=== PATIENT | male | born 1970 | race Caucasian/White ===

== ENCOUNTER 2016-07-22 16:17 | Inpatient (IN) | payer MEDICAID, MEDICARE, OTHER ==
--- NOTE | 2016-07-22 16:57 | ED ---
General Adult HPI - General Source: patient, RN notes reviewed Mode of arrival: ambulatory Limitations: no limitations <Collin Moseley - Last Filed: 07/24/16 07:52> <Gianni Gomez - Last Filed: 08/03/16 07:24> - General Chief complaint: Psychiatric Symptoms Stated complaint: Mental Health, SOB Time Seen by Provider: 07/22/16 16:20 - History of Present Illness Initial comments: This is a 45-year-old male who presents emergency department stating he wants to kill himself. patient states he has attempted in the past by taking pills or cutting his wrists. Patient states today he smokes $150 worth of crack cocaine in the hopes that he would . Patient denies any physical problems today. He denies headache denies numbness weakness. Patient denies any chest pain palpitations difficulty breathing or shortness of breath per patient denies abdominal pain patient denies nausea vomiting diarrhea. Patient denies any alcohol use. Patient states he has used crack multiple times in the past last time prior to today was 2 days ago and he only smoked $20 worth. (Collin Moseley) - Related Data Home Medications Medication Instructions Recorded Confirmed ALPRAZolam [Xanax] 2 mg PO BID 07/23/16 07/23/16 ARIPiprazole [Abilify] 2 mg PO DAILY 07/23/16 07/23/16 Allopurinol [Zyloprim] 300 mg PO DAILY 07/23/16 07/23/16 Baclofen [Lioresal] 10 mg PO TID 07/23/16 07/23/16 Canagliflozin [Invokana] 300 mg PO DAILY 07/23/16 07/23/16 Citalopram Hydrobromide [CeleXA] 40 mg PO DAILY 07/23/16 07/23/16 Furosemide [Lasix] 40 mg PO DAILY 07/23/16 07/23/16 Gabapentin [Neurontin] 600 mg PO TID 07/23/16 07/23/16 Glimepiride [Amaryl] 2 mg PO BID 07/23/16 07/23/16 Hydrocodone/Acetaminophen [[place] 1 tab PO BID PRN 07/23/16 07/23/16 10-325 Tablet] Lisinopril-Hctz 20-25 mg 1 tab PO DAILY 07/23/16 07/23/16 [Zestoretic 20-25] Phentermine HCl [Adipex-P] 37.5 mg PO QAM 07/23/16 07/23/16 buPROPion HCL [Wellbutrin XL] 300 mg PO DAILY 07/23/16 07/23/16 metFORMIN HCL [Metformin HCl] 500 mg PO BID 07/23/16 07/23/16 Allergies Allergy/AdvReac Type Severity Reaction Status Date / Time ibuprofen [From Motrin] Allergy Rash/Hives Verified 07/23/16 10:33 Review of Systems ROS Other: All systems not noted in ROS Statement are negative. <Collin Moseley - Last Filed: 07/24/16 07:52> ROS Other: All systems not noted in ROS Statement are negative. <Gianni Gomez - Last Filed: 08/03/16 07:24> ROS Statement: Those systems with pertinent positive or pertinent negative responses have been documented in the HPI. Past Medical History Past Medical History: Diabetes Mellitus, Hypertension Additional Past Medical History / Comment(s): neuropathy, gout, depression. History of Any Multi-Drug Resistant Organisms: None Reported Additional Past Surgical History / Comment(s): eyes, left foot surgery. Past Psychological History: Anxiety, Bipolar, Depression Smoking Status: Never smoker Past Alcohol Use History: None Reported Past Drug Use History: Cocaine - Past Family History Mother Family Medical History: Cancer, Diabetes Mellitus Father Family Medical History: Myocardial Infarction (MD) Additional Family Medical History / Comment(s): stroke <Collin Moseley - Last Filed: 07/24/16 07:52> General Exam Limitations: no limitations <Collin Moseley - Last Filed: 07/24/16 07:52> <Gianni Gomez - Last Filed: 08/03/16 07:24> - General Exam Comments Initial Comments: GENERAL: Patient is well-developed and well-nourished. Patient is nontoxic and well- hydrated and is in no acute distress. ENT: Neck is soft and supple. No significant lymphadenopathy is noted. Oropharynx is clear. Moist mucous membranes. Neck has full range of motion without eliciting any pain. EYES: The sclera were anicteric and conjunctiva were pink and moist. Extraocular movements were intact and pupils were equal round and reactive to light. Eyelids were unremarkable. PULMONARY: Unlabored respirations. Good breath sounds bilaterally. No audible rales rhonchi or wheezing was noted. CARDIOVASCULAR: There is a regular rate and rhythm without any murmurs gallops or rubs. ABDOMEN: Soft and nontender with normal bowel sounds. No palpable organomegaly was noted. There is no palpable pulsatile mass. SKIN: Skin is clear with no lesions or rashes and otherwise unremarkable. NEUROLOGIC: Patient is alert and oriented x3. Cranial nerves II through XII are grossly intact. Motor and sensory are also intact. Normal speech, volume and content. Symmetrical smile. MUSCULOSKELETAL: Normal extremities with adequate strength and full range of motion. No lower extremity swelling or edema. No calf tenderness. LYMPHATICS: No significant lymphadenopathy is noted PSYCHIATRIC: patient has a very flat affect. Patient seems very depressed speaks of wanting to kill himself. (Collin Moseley) Medical Decision Making - Lab Data Result diagrams: 07/22/16 17:14 07/22/16 17:14 <Collin Moseley - Last Filed: 07/24/16 07:52> - Lab Data Result diagrams: 07/22/16 17:14 07/22/16 17:14 <Gianni Gomez - Last Filed: 08/03/16 07:24> - Medical Decision Making EKG shows normal sinus rhythm at 93 bpm KS interval 168 QRSs 86 QT interval 356 QTC is 442. Patient's EKG shows no ST segment elevation or depression or T- wave abdomen is noted. Dr. Carter will be taking over the care of this patient at 7 PM (Collin Moseley) - Lab Data Lab Results 07/22/16 07/22/16 07/22/16 Range/Units 17:14 17:14 17:14 WBC 13.9 H (3.8-10.6) k/uL RBC 5.90 (4.30-5.90) m/uL Hgb 17.3 (13.0-17.5) gm/dL Hct 53.2 H (39.0-53.0) % MCV 90.2 (80.0-100.0) fL MCH 29.3 (25.0-35.0) pg MCHC 32.4 (31.0-37.0) g/dL RDW 13.9 (11.5-15.5) % Plt Count 225 (150-450) k/uL Neutrophils % 71 % Lymphocytes % 20 % Monocytes % 6 % Eosinophils % 1 % Basophils % 1 % Neutrophils # 9.8 H (1.3-7.7) k/uL Lymphocytes # 2.8 (1.0-4.8) k/uL Monocytes # 0.8 (0-1.0) k/uL Eosinophils # 0.2 (0-0.7) k/uL Basophils # 0.1 (0-0.2) k/uL PT (9.0-12.0) sec INR (<1.1) APTT (22.0-30.0) sec Sodium 139 (137-145) mmol/L Potassium 4.0 (3.5-5.1) mmol/L Chloride 107 (98-107) mmol/L Carbon Dioxide 21 L (22-30) mmol/L Anion Gap 11 mmol/L BUN 13 (9-20) mg/dL Creatinine 0.66 (0.66-1.25) mg/dL Est GFR (MDRD) Af Amer >60 (>60 ml/min/1.73 sqM) Est GFR (MDRD) Non-Af >60 (>60 ml/min/1.73 sqM) Glucose 270 H (74-99) mg/dL Estimated Ave Glu mg/dL mg/dL Hemoglobin A1c (4.2-6.1) % Calcium 9.1 (8.4-10.2) mg/dL Magnesium 1.6 (1.6-2.3) mg/dL Total Bilirubin 0.9 (0.2-1.3) mg/dL AST 49 (17-59) U/L ALT 46 (21-72) U/L Alkaline Phosphatase 69 (38-126) U/L Total Creatine Kinase 93 (55-170) U/L CK-MB (CK-2) 1.7 (0.0-2.4) ng/mL CK-MB (CK-2) Rel Index 1.8 Troponin I <0.012 (0.000-0.034) ng/mL Total Protein 6.7 (6.3-8.2) g/dL Albumin 3.5 (3.5-5.0) g/dL TSH (0.465-4.680) mIU/L 07/22/16 07/22/16 07/22/16 Range/Units 17:14 17:14 17:14 WBC (3.8-10.6) k/uL RBC (4.30-5.90) m/uL Hgb (13.0-17.5) gm/dL Hct (39.0-53.0) % MCV (80.0-100.0) fL MCH (25.0-35.0) pg MCHC (31.0-37.0) g/dL RDW (11.5-15.5) % Plt Count (150-450) k/uL Neutrophils % % Lymphocytes % % Monocytes % % Eosinophils % % Basophils % % Neutrophils # (1.3-7.7) k/uL Lymphocytes # (1.0-4.8) k/uL Monocytes # (0-1.0) k/uL Eosinophils # (0-0.7) k/uL Basophils # (0-0.2) k/uL PT 11.7 (9.0-12.0) sec INR 1.2 (<1.1) APTT 23.7 (22.0-30.0) sec Sodium (137-145) mmol/L Potassium (3.5-5.1) mmol/L Chloride (98-107) mmol/L Carbon Dioxide (22-30) mmol/L Anion Gap mmol/L BUN (9-20) mg/dL Creatinine (0.66-1.25) mg/dL Est GFR (MDRD) Af Amer (>60 ml/min/1.73 sqM) Est GFR (MDRD) Non-Af (>60 ml/min/1.73 sqM) Glucose (74-99) mg/dL Estimated Ave Glu mg/dL 226 mg/dL Hemoglobin A1c 9.5 H (4.2-6.1) % Calcium (8.4-10.2) mg/dL Magnesium (1.6-2.3) mg/dL Total Bilirubin (0.2-1.3) mg/dL AST (17-59) U/L ALT (21-72) U/L Alkaline Phosphatase (38-126) U/L Total Creatine Kinase (55-170) U/L CK-MB (CK-2) (0.0-2.4) ng/mL CK-MB (CK-2) Rel Index Troponin I (0.000-0.034) ng/mL Total Protein (6.3-8.2) g/dL Albumin (3.5-5.0) g/dL TSH 0.959 (0.465-4.680) mIU/L Disposition <Collin Moseley - Last Filed: 07/24/16 07:52> <Gianni Gomez - Last Filed: 08/03/16 07:24> Clinical Impression: Cocaine abuse, Mood disorder Disposition: ADMITTED IP TO THIS HOSP Condition: Fair
[2016-07-22 17:33] LABS: Basophils # (A) 0.1 k/uL (0-0.2); Basophils % (A) 1 %; CH 29.7; CHCM 33.1; Eosinophils # (A) 0.2 k/uL (0-0.7); Eosinophils % (A) 1 %; HCT 53.2 % (39.0-53.0); HDW 2.42; HGB 17.3 gm/dL (13.0-17.5); Luc % (Auto) 1; Lymphocytes # (A) 2.8 k/uL (1.0-4.8); Lymphocytes % (A) 20 %; MCH 29.3 pg (25.0-35.0); MCHC 32.4 g/dL (31.0-37.0); MCV 90.2 fL (80.0-100.0); Mean Platelet Volume 8.3; Monocytes # (A) 0.8 k/uL (0-1.0); Monocytes % (A) 6 %; Neutrophils # (A) 9.8 k/uL (1.3-7.7); Neutrophils % (A) 71 %; RDW 13.9 % (11.5-15.5); WBC 13.9 k/uL (3.8-10.6); WBC (Perox) 13.32
[2016-07-22 17:40] LABS: ALT 46 U/L (21-72); AST 49 U/L (17-59); Alkaline Phosphatase 69 U/L (38-126); Anion Gap 11 mmol/L; Blood Urea Nitrogen 13 mg/dL (9-20); Calcium 9.1 mg/dL (8.4-10.2); Carbon Dioxide 21 mmol/L (22-30); Chloride 107 mmol/L (98-107); Glucose 270 mg/dL (74-99); Magnesium 1.6 mg/dL (1.6-2.3); Non-African American GFR(MDRD) >60 (>60 ml/min/1.73 sqM); Sodium 139 mmol/L (137-145); Total Bilirubin 0.9 mg/dL (0.2-1.3); Total Protein 6.7 g/dL (6.3-8.2)
[2016-07-22 17:44] LABS: INR 1.2 (<1.1); Partial Thromboplastin Time 23.7 sec (22.0-30.0); Prothrombin Time 11.7 sec (9.0-12.0)
[2016-07-22 17:55] LABS: Creatine Kinase 93 U/L (55-170)
--- NOTE | 2016-07-22 17:58 | XR ---
EXAMINATION TYPE: XR chest 2V DATE OF EXAM: 07/22/2016 COMPARISON: 11/25/2009 INDICATION: Chest pain, short of breath TECHNIQUE: Frontal and lateral views of the chest are obtained. FINDINGS: The heart size is normal. The pulmonary vasculature is normal. The lungs are clear. IMPRESSION: 1. No acute pulmonary process.
[2016-07-22 18:07] LABS: Creatine Kinase MB 1.7 ng/mL (0.0-2.4); Troponin I <0.012 ng/mL (0.000-0.034)
[2016-07-22] MEDS ORDERED: MAG HYDROX/AL HYDROX/SIMETH 30 ML CUP PO PRN (19:43)
[2016-07-22] MEDS ORDERED: ACETAMINOPHEN TAB 325 MG TAB PO PRN (19:53)
[2016-07-22 20:53] LABS: Glucose,Whole Blood 186 mg/dL (75-99)
[2016-07-22] MEDS: hydrOXYzine PAMOATE 25 MG CAP PO PRN (20:53)
[2016-07-22] MEDS: INSULIN LISPRO (humaLOG) 300 UNIT/3 ML VIAL SQ SCH (21:30)
[2016-07-22 21:58] VITALS: BMI 51.2
[2016-07-23 07:05] LABS: Glucose,Whole Blood 165 mg/dL (75-99)
[2016-07-23] MEDS ORDERED: INSULIN LISPRO (humaLOG) 300 UNIT/3 ML VIAL SQ SCH (07:30)
[2016-07-23] MEDS: INSULIN LISPRO (humaLOG) 300 UNIT/3 ML VIAL SQ SCH ×4 (08:08→20:28)
--- NOTE | 2016-07-23 11:23 | P.HP ---
Psychiatric H&P - . H&P Date: 07/23/16 History & Physical: DATE OF SERVICE: 07/23/2016 IDENTIFYING DATA: This patient is a 45-year-old single male who was admitted to the mental health unit through emergency room. HISTORY OF PRESENT ILLNESS:Patient came to ER with friend Leonie whom he lives with. Patient stated he was feeling suicidal today and in an attempt to overdose he smoked crack. He stated he was hoping his heart with explode. Patient stated he has been depressed and feeling sucidal for the last month. He stated when he is in major depression he craves Crack, however admits to only using two times prior. [employer] asked patient what was his trigger for his depression and patient responded vaguely with comments such as I have lost everything, life is spiraling down, I am a waste of air. Patient repeated throughout the assessment "I want to ." Leonie stated that Maxwell has a long history of drug abuse. Stated he has been addicted to Crack for 20 years and has been snorting other meds such a neurtonin. Patient denies this. On examination today he reports"I was suicidal and i suffer from depression". States he was taking more neurontin for pain after surgery since sep. but denies snorting. Stopped taking all medications 4 months ago including insulin to kill self. Continues to feel hopeless, useless, worthless, no reason to live. Says he sleeps during the day because of the depression. Says he has taken welbutrin 300mg, thinks he has tried abilify, seroquel causes restless leg. +Suicidal ideation, no reason to live, hopeless, worthless, help rejecting style. PAST PSYCHIATRIC HISTORY: Patient reports depression all his life. REports he has been admitted to psychiatric units, several times here, [facility]. Reports suicide attempts has OD-several times, gastric lavage, once in ICU at [facility], cut self, taking cocaine to kill self. PAST MEDICAL HISTORY: DM type 2, neuropathy, . ALLERGIES: No known drug allergies. 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 Denies using cocain or crack other than the last 2 weeks in order to kill self. UDS + for cocaine, cannabis opiates. FAMILY PSYCHIATRIC HISTORY: mother had depression. FAMILY CHEMICAL DEPENDENCY HISTORY:grandfather etohic, father etohic.. LEGAL HISTORY: Denies current problems. Embezzlement $14,000, probation and restitution, has felony status. SOCIAL HISTORY: Grew up in [place], [place], childhood was horrible, parents fought , divorce. 1 sister older, not close. 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 Work history 27 years, cannot work due inability to pass physical, weighs 347, on SSDI $1151. Lives in house with roommate Maia. - never, no children.. MENTAL STATUS EXAM: Patient alert and oriented 3, no eye contact, poorly groomed in street clothing. Speech low volume, slow rate and reduce production. + Psychomotor retardation Coherent, logical and goal directed thought process. No JANA, no FOI. No TB/TW/ TI Denied auditory and visual hallucinations. Denied paranoid ideation, delusions or IOR. Memory impaired Cognition below average Recalled 1/0, 0/5; Serial 7's unable to complete Mood dysphoric, anxious, affect constricted, congruent with mood. ++suicidal ideation, denies homicidal ideation. Insight none; Judgment impaired . STRENGTHS: Has housing, has income. WEAKNESSES: Poor self-esteem, addiction. IMPRESSIONS: 45-year-old male admitted through the emergency room after report of making a suicide attempt of using $250 cocaine to try to explode his heart. Reports chronic depression lifelong, having stopped all medications 4 months ago with report of suicide intent. Unclear about his cocaine use, Leonie his roommate, reports he uses it over the past 20 years. Patient reports horrible childhood but does not endorse abuse. Was in special education considered emotionally impaired. Patient with psychomotor retardation, reduce speech rate and production, dysphoria, hopelessness helplessness worthlessness. Sleep-wake cycle disruption. Suicidal ideation with a plan, intent Attempted suicide Suicidal ideation Depression, unspecified Rule out cocaine-induced depression Cocaine use,? Mild versus severe PLAN: Continue psychiatric inpatient admission for safety, treatment of depression. Patient was unable to report past medication trials. Will start with bupropion 75 mg, increase up to 450 mg. Start lithium 150 at bedtime and titrate up, for purported protection from suicide. Patient to remain up during the day no sleeping. Participate in milieu therapy.. Allergies Allergy/AdvReac Type Severity Reaction Status Date / Time ibuprofen From Motrin Allergy Rash/Hives Verified 07/23/16 10:33 Vital Signs Temp 97.6 F 07/23/16 06:57 Pulse 71 07/23/16 06:57 Resp 16 07/23/16 06:57 BP 116/73 07/23/16 06:57 Pulse Ox 94 L 07/22/16 19:58 Intake & Output 07/22/16 07/23/16 07/23/16 18:59 06:59 18:59 Weight 208.652 kg 157.26 kg Laboratory Last Values WBC 13.9 k/uL (3.8-10.6) H 07/22/16 17:14 RBC 5.90 m/uL (4.30-5.90) 07/22/16 17:14 Hgb 17.3 gm/dL (13.0-17.5) 07/22/16 17:14 Hct 53.2 % (39.0-53.0) H 07/22/16 17:14 MCV 90.2 fL (80.0-100.0) 07/22/16 17:14 MCH 29.3 pg (25.0-35.0) 07/22/16 17:14 MCHC 32.4 g/dL (31.0-37.0) 07/22/16 17:14 RDW 13.9 % (11.5-15.5) 07/22/16 17:14 Plt Count 225 k/uL (150-450) 07/22/16 17:14 Neutrophils % 71 % 07/22/16 17:14 Lymphocytes % 20 % 07/22/16 17:14 Monocytes % 6 % 07/22/16 17:14 Eosinophils % 1 % 07/22/16 17:14 Basophils % 1 % 07/22/16 17:14 Neutrophils # 9.8 k/uL (1.3-7.7) H 07/22/16 17:14 Lymphocytes # 2.8 k/uL (1.0-4.8) 07/22/16 17:14 Monocytes # 0.8 k/uL (0-1.0) 07/22/16 17:14 Eosinophils # 0.2 k/uL (0-0.7) 07/22/16 17:14 Basophils # 0.1 k/uL (0-0.2) 07/22/16 17:14 PT 11.7 sec (9.0-12.0) 07/22/16 17:14 INR 1.2 (<1.1) 07/22/16 17:14 APTT 23.7 sec (22.0-30.0) 07/22/16 17:14 Sodium 139 mmol/L (137-145) 07/22/16 17:14 Potassium 4.0 mmol/L (3.5-5.1) 07/22/16 17:14 Chloride 107 mmol/L (98-107) 07/22/16 17:14 Carbon Dioxide 21 mmol/L (22-30) L 07/22/16 17:14 Anion Gap 11 mmol/L 07/22/16 17:14 BUN 13 mg/dL (9-20) 07/22/16 17:14 Creatinine 0.66 mg/dL (0.66-1.25) 07/22/16 17:14 Est GFR (MDRD) Af Amer >60 (>60 ml/min/1.73 sqM) 07/22/16 17:14 Est GFR (MDRD) Non-Af >60 (>60 ml/min/1.73 sqM) 07/22/16 17:14 Glucose 270 mg/dL (74-99) H 07/22/16 17:14 POC Glucose (mg/dL) 165 mg/dL (75-99) H 07/23/16 06:56 POC Glu Account Leader ID Arianna Ramirez 07/23/16 06:56 Calcium 9.1 mg/dL (8.4-10.2) 07/22/16 17:14 Magnesium 1.6 mg/dL (1.6-2.3) 07/22/16 17:14 Total Bilirubin 0.9 mg/dL (0.2-1.3) 07/22/16 17:14 AST 49 U/L (17-59) 07/22/16 17:14 ALT 46 U/L (21-72) 07/22/16 17:14 Alkaline Phosphatase 69 U/L (38-126) 07/22/16 17:14 Total Creatine Kinase 93 U/L (55-170) 07/22/16 17:14 CK-MB (CK-2) 1.7 ng/mL (0.0-2.4) 07/22/16 17:14 CK-MB (CK-2) Rel Index 1.8 07/22/16 17:14 Troponin I <0.012 ng/mL (0.000-0.034) 07/22/16 17:14 Total Protein 6.7 g/dL (6.3-8.2) 07/22/16 17:14 Albumin 3.5 g/dL (3.5-5.0) 07/22/16 17:14 TSH 0.959 mIU/L (0.465-4.680) 07/22/16 17:14 Urine Opiates Screen Detected (NotDetected) H 07/22/16 22:33 Ur Oxycodone Screen Not Detected (NotDetected) 07/22/16 22:33 Urine Methadone Screen Not Detected (NotDetected) 07/22/16 22:33 Ur Propoxyphene Screen Not Detected (NotDetected) 07/22/16 22:33 Ur Barbiturates Screen Not Detected (NotDetected) 07/22/16 22:33 U Tricyclic Antidepress Not Detected (NotDetected) 07/22/16 22:33 Ur Phencyclidine Scrn Not Detected (NotDetected) 07/22/16 22:33 Ur Amphetamines Screen Not Detected (NotDetected) 07/22/16 22:33 U Methamphetamines Scrn Not Detected (NotDetected) 07/22/16 22:33 U Benzodiazepines Scrn Not Detected (NotDetected) 07/22/16 22:33 Urine Cocaine Screen Detected (NotDetected) H 07/22/16 22:33 U Marijuana (THC) Screen Detected (NotDetected) H 07/22/16 22:33 07/23/16 10:49
[2016-07-23] MEDS: LITHIUM CARBONATE 150 MG CAP PO SCH ×2 (11:31→20:59)
[2016-07-23] MEDS: buPROPion 75 MG TAB PO SCH ×2 (11:33→20:59)
[2016-07-23 12:14] LABS: Glucose,Whole Blood 229 mg/dL (75-99)
[2016-07-23 12:26] LABS: Hemoglobin A1C 9.5 % (4.2-6.1)
[2016-07-23] MEDS ORDERED: GLIMEPIRIDE 2 MG TAB PO SCH (17:30)
[2016-07-23 17:43] LABS: Glucose,Whole Blood 137 mg/dL (75-99)
[2016-07-23] MEDS: hydrOXYzine PAMOATE 25 MG CAP PO PRN (20:26)
[2016-07-23 20:30] LABS: Glucose,Whole Blood 165 mg/dL (75-99)
[2016-07-23] MEDS: BACLOFEN 10 MG TAB PO SCH (20:59)
[2016-07-23] MEDS: metFORMIN 500 MG TAB PO SCH (20:59)
[2016-07-23] MEDS: GABAPENTIN 300 MG CAP PO SCH (21:00)
--- NOTE | 2016-07-23 21:11 | CONS ---
DATE OF CONSULTATION: REASON FOR CONSULTATION: Leukocytosis, recommendations regarding antihypertensive and diabetic medications. Patient is a 45-year-old was admitted to a psychiatric facility, after suicidal ideation. Patient tried to smoke 150 dollars' worth of crack cocaine so that he can . As $20 worth of cocaine did not kill him a couple days ago and patient denied any fever, chills. Patient denied any abdominal pain, nausea, vomiting. Patient does have leukocytosis. Patient denied any ( ), dysuria. Patient has not been taking any of her medication. Patient is diabetic and patient is hypertensive. Has not been taking any medication as he is giving up he says. REVIEW OF SYSTEMS: CONSTITUTIONAL: No fever, no malaise, no fatigue. HEENT: No recent visual problems or hearing problems. Denied any sore throat. CARDIOVASCULAR: No chest pain, orthopnea, PND, no palpitations, no syncope. PULMONARY: No shortness of breath, no cough, no hemoptysis. GASTROINTESTINAL: No diarrhea, no nausea, no vomiting, no abdominal pain. Normoactive bowel sounds. NEUROLOGICAL: No headaches, no weakness, no numbness. HEMATOLOGICAL: Denies any bleeding or petechiae. GENITOURINARY: Denies any burning micturition, frequency, or urgency. MUSCULOSKELETAL/RHEUMATOLOGICAL: Denies any joint pain, swelling, or any muscle pain. ENDOCRINE: Denies any polyuria or polydipsia. PSYCHIATRY: As described in history of present illness. The rest of the 14 point review of systems is negative. Home medications include: 1. Allopurinol. 2. Baclofen. 3. Duloxetine. 4. Famotidine. 5. Gabapentin. 6. Lisinopril. 7. Hydrochlorothiazide. 8. Latuda. 9. Clonazepam. 10. Glyburide. The patient has not been taking any of his medications for the last couple of months. ALLERGIES: IBUPROFEN. PAST MEDICAL HISTORY: Diabetes mellitus, hyperlipidemia, hypertension, moderate obesity, peripheral neuropathy and diabetic neuropathy, diabetic nephropathy and bipolar depression. SOCIAL HISTORY: Denied any smoking, alcohol abuse, urine drug screen is positive for cocaine, marijuana, opiates. Denied any alcohol abuse. FAMILY HISTORY: Significant for psychiatric disorder, diabetes mellitus and mother had cancer and diabetes mellitus and father had myocardial infarction, stroke. PHYSICAL EXAMINATION: Temperature 97.6, pulse of 72, respiratory rate of 16, blood pressure is 157/ 74, saturating at 94% on room air. GENERAL: Morbidly obese, alert and oriented x3. HEENT: Pupils are round and equally reacting to light. EOMI. No scleral icterus. No conjunctival pallor. Normocephalic, atraumatic. No pharyngeal erythema. No thyromegaly. CARDIOVASCULAR: S1 and S2 present. No murmurs, rubs, or gallops. PULMONARY: Chest is clear to auscultation, no wheezing or crackles. ABDOMEN: Soft, nontender, nondistended, normoactive bowel sounds. No palpable organomegaly. MUSCULOSKELETAL: No joint swelling or deformity. EXTREMITIES: No cyanosis, clubbing, or pedal edema. NEUROLOGICAL: Gross neurological examination did not reveal any focal deficits. SKIN: No rashes. LABORATORY DATA: CBC, CMP are abnormal for elevated WBC count of 13,900. Blood glucose elevated as well, hemoglobin AlC of 9.5. ASSESSMENT AND PLAN: 1. Leukocytosis without any signs or symptoms of infection. Chest x-ray did not show any pneumonic process. I do not believe patient will need any antibiotics. This is probably reactive response to his stress psychosocial stresses, psychological stress. 2. Diabetes mellitus will resume on his home regimen. I recommend to check t.i.d. a.c. Accu-Cheks. 3. Cocaine abuse and marijuana use, counseling as per primary service. 4. Depression, bipolar disorder, management as per primary service. 5. Hypertension. The patient blood pressure is fairly okay. Patient will be started on low dose of Lisinopril, watch his blood pressure. 6. Obesity. Patient will need to be checked for sleep apnea down the line. 7. Peripheral neuropathy. That is diabetic neuropathy for which patient is on Gabapentin which will be restarted back. 8. Morbid obesity. 9. Psychiatric issues and management as per primary service. Thank you for letting me participate in this patient's care. Will continue to follow the patient and I will follow the patient on as-needed basis. As of now, we will sign off. Call us back if needed.
[2016-07-24 06:32] LABS: Glucose,Whole Blood 178 mg/dL (75-99)
[2016-07-24] MEDS: INSULIN LISPRO (humaLOG) 300 UNIT/3 ML VIAL SQ SCH ×4 (07:49→20:20)
[2016-07-24] MEDS: LISINOPRIL 10 MG TAB PO SCH ×2 (07:58→08:14)
[2016-07-24] MEDS: LITHIUM CARBONATE 150 MG CAP PO SCH (07:58)
[2016-07-24] MEDS: buPROPion 75 MG TAB PO SCH ×2 (07:58→20:25)
[2016-07-24] MEDS: GLIMEPIRIDE 4 MG TAB PO SCH ×2 (07:58→17:42)
[2016-07-24] MEDS: BACLOFEN 10 MG TAB PO SCH ×3 (07:58→21:07)
[2016-07-24] MEDS: ALLOPURINOL 300 MG TAB PO SCH (07:58)
[2016-07-24] MEDS: GABAPENTIN 300 MG CAP PO SCH ×3 (07:59→21:07)
[2016-07-24] MEDS: metFORMIN 500 MG TAB PO SCH ×2 (07:59→20:25)
[2016-07-24] MEDS: hydrOXYzine PAMOATE 25 MG CAP PO PRN ×2 (08:44→21:07)
[2016-07-24] MEDS ORDERED: WATER FOR INJECTION, STERILE 10 ML IV ONE (08:57)
[2016-07-24] MEDS ORDERED: LISINOPRIL-HCTZ 20-25 MG 1 EACH TAB PO SCH (09:00)
[2016-07-24] MEDS: ZIPRASIDONE 20 MG VIAL IM PRN (09:25)
[2016-07-24 12:16] LABS: Glucose,Whole Blood 190 mg/dL (75-99)
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
[2016-07-24] MEDS: ZIPRASIDONE 20 MG CAP PO SCH ×2 (13:29→20:26)
[2016-07-24 17:09] LABS: Glucose,Whole Blood 165 mg/dL (75-99)
[2016-07-24 20:21] LABS: Glucose,Whole Blood 163 mg/dL (75-99)
[2016-07-24] MEDS: LITHIUM CARBONATE 300 MG CAP PO SCH (20:25)
--- NOTE | 2016-07-25 05:45 | PN ---
I was asked to reevaluate the patient. Patient's blood pressure was ( ) and patient was complaining of lightheadedness, because of which I discontinued lisinopril. The lisinopril was basically started as an appropriate agent because of his diabetes mellitus. Blood sugars are fairly controlled at this point of time, presently continue with present regimen. Patient vitals are stable. PHYSICAL EXAMINATION: GENERAL: The patient is alert and oriented x3, not in any acute distress. Well developed, well nourished. HEENT: Pupils are round and equally reacting to light. EOMI. No scleral icterus. No conjunctival pallor. Normocephalic, atraumatic. No pharyngeal erythema. No thyromegaly. CARDIOVASCULAR: S1 and S2 present. No murmurs, rubs, or gallops. PULMONARY: Chest is clear to auscultation, no wheezing or crackles. ABDOMEN: Soft, nontender, nondistended, normoactive bowel sounds. No palpable organomegaly. MUSCULOSKELETAL: No joint swelling or deformity. EXTREMITIES: No cyanosis, clubbing, or pedal edema. NEUROLOGICAL: Gross neurological examination did not reveal any focal deficits. SKIN: No rashes. ASSESSMENT AND PLAN: 1. Hypotension. Management as mentioned in the interval history. 2. Diabetes mellitus. Continue with present medications. Please call us back if needed.
[2016-07-25 06:47] LABS: Glucose,Whole Blood 143 mg/dL (75-99)
[2016-07-25] MEDS: INSULIN LISPRO (humaLOG) 300 UNIT/3 ML VIAL SQ SCH ×4 (08:22→20:02)
[2016-07-25] MEDS: GLIMEPIRIDE 4 MG TAB PO SCH ×2 (08:23→16:36)
[2016-07-25] MEDS: buPROPion 75 MG TAB PO SCH (08:24)
[2016-07-25] MEDS: ALLOPURINOL 300 MG TAB PO SCH (08:24)
[2016-07-25] MEDS: BACLOFEN 10 MG TAB PO SCH ×3 (08:24→20:25)
[2016-07-25] MEDS: GABAPENTIN 300 MG CAP PO SCH ×3 (08:25→20:25)
[2016-07-25] MEDS: ZIPRASIDONE 20 MG CAP PO SCH ×2 (08:25→20:25)
[2016-07-25] MEDS: metFORMIN 500 MG TAB PO SCH ×2 (08:25→20:25)
[2016-07-25] MEDS: hydrOXYzine PAMOATE 25 MG CAP PO PRN ×3 (09:01→22:09)
--- NOTE | 2016-07-25 09:40 | P.PN ---
Progress Note - Text Interval history: The patient is found in the [facility] he follows me to an interview room. He was admitted over the weekend for worsening symptoms of depression and suicidal ideation. The patient states that his depression has been worsening over the last 4 months and he has had no outpatient mental health services for 2 years. He states that he had been maintained on Wellbutrin for approximately 10 years but recently quit that medication. He had previously been on Celexa and Xanax. He reports feeling depressed he states "I don't even want a brief". He continues to feel hopeless and continues to have suicidal thoughts. The psychiatric evaluation was reviewed. He states he does not wish to continue Wellbutrin as that medication has not been helpful. He has been started on lithium as an augmentation strategy. Mental status exam: The patient is a morbidly obese male appearing his stated age he has a disheveled appearance his hair sticking up he has not shaved. He is dressed in pajama pants and a T-shirt. Eye contact is appropriate speech is fluent spontaneous nonpressured. He maintains a sullen affect. He reports a depressed mood with ongoing suicidal ideation. No homicidal ideation. There is no evidence of psychosis hypomania or go. He states he will sometimes hear his mother's voice call his name. No command auditory hallucinations. He demonstrates no verbal or physical aggressiveness. He does have some psychomotor slowing area insight and judgment impaired. Cognitively he is oriented. Plan: The patient will continue on the lithium as an augmentation strategy. We will discontinue the Wellbutrin we will initiate Cymbalta 30 mg daily. We will titrate the Cymbalta fairly soon during the course of the hospitalization. We will also initiate trazodone for complaint of insomnia. He has not been tried on an SNRI and the Cymbalta may help with the symptoms of neuropathy. We will monitor him for safety and encourage his participation in the milieu. He requires continued hospitalization as he is in acute safety risk.
[2016-07-25] MEDS: DULoxetine HCL 30 MG CAPSULE.DR PO SCH (10:24)
[2016-07-25 12:38] LABS: Glucose,Whole Blood 137 mg/dL (75-99)
[2016-07-25 17:39] LABS: Glucose,Whole Blood 120 mg/dL (75-99)
[2016-07-25 20:02] LABS: Glucose,Whole Blood 261 mg/dL (75-99)
[2016-07-25] MEDS: traZODone HCL 50 MG TAB PO SCH (20:25)
[2016-07-25] MEDS: LITHIUM CARBONATE 300 MG CAP PO SCH (20:25)
[2016-07-26 06:25] LABS: Glucose,Whole Blood 127 mg/dL (75-99)
[2016-07-26] MEDS: INSULIN LISPRO (humaLOG) 300 UNIT/3 ML VIAL SQ SCH ×4 (07:52→20:25)
[2016-07-26] MEDS: GLIMEPIRIDE 4 MG TAB PO SCH ×2 (08:09→17:45)
[2016-07-26] MEDS: BACLOFEN 10 MG TAB PO SCH ×3 (09:22→22:09)
[2016-07-26] MEDS: GABAPENTIN 300 MG CAP PO SCH ×3 (09:22→22:09)
[2016-07-26] MEDS: metFORMIN 500 MG TAB PO SCH ×2 (09:22→22:10)
[2016-07-26] MEDS: ALLOPURINOL 300 MG TAB PO SCH (09:22)
[2016-07-26] MEDS: DULoxetine HCL 30 MG CAPSULE.DR PO SCH (09:22)
[2016-07-26] MEDS: ZIPRASIDONE 20 MG CAP PO SCH ×2 (09:22→22:10)
[2016-07-26] MEDS: hydrOXYzine PAMOATE 25 MG CAP PO PRN ×2 (09:25→17:48)
--- NOTE | 2016-07-26 09:26 | P.PN ---
Progress Note - Text Interval history: The patient is found in group he follows me to an interview room. He reports that his mood continues to be depressed he still feels helpless and worthless. His mood is mildly improved. He does feel better being in a safe environment and appreciates the benefit of the groups. He reports having a conversation with [facility] for inpatient chemical dependency treatment. He is waiting for a placement date we will discuss further with social work during team meeting. We again discussed the medication changes. He has no questions or concerns regarding his medications. He states he wants to be sure we are treating his depression and not just assuming it is all related to his substance use. He reports continued difficulty with sleep staff documented he slept approximately 5 hours. Mental status exam: The patient is a morbidly obese male he is mildly disheveled he is dressed in his own clothing. Eye contact is appropriate speech is fluent and spontaneous nonpressured. He is mildly circumstantial but demonstrates no tangential thinking loose associations or flight of ideas. He reports continued hopelessness thinking he feels worthless. He states he has no acute intent or plan of harming himself in the hospital and feels safe here. He reports no homicidal ideation. He states intermittently he will hear the voice of his mother or father. No command auditory hallucinations. He demonstrates no verbal or physical aggressiveness. He remains oriented to person place and date. Affect remains bland. Insight and judgment limited. Plan: The patient continues to experience ongoing mood symptoms namely depression. He feels safe in this environment. He will continue on his current medications we will likely titrate the Cymbalta in the next 1-2 days. Continue lithium as written. Continue trazodone. We will monitor him for safety encourage his participation in the milieu. We will verify his placement dated [facility] for inpatient chemical dependency treatment.
[2016-07-26 12:28] LABS: Glucose,Whole Blood 157 mg/dL (75-99)
[2016-07-26 17:56] LABS: Glucose,Whole Blood 163 mg/dL (75-99)
[2016-07-26] MEDS ORDERED: ZIPRASIDONE 20 MG VIAL IM ONE (19:33)
[2016-07-26] MEDS ORDERED: WATER FOR INJECTION, STERILE 10 ML IV ONE (19:33)
[2016-07-26] MEDS: ZIPRASIDONE 20 MG VIAL IM PRN (19:37)
[2016-07-26 20:17] LABS: Glucose,Whole Blood 223 mg/dL (75-99)
[2016-07-26] MEDS: traZODone HCL 50 MG TAB PO SCH (22:10)
[2016-07-26] MEDS: LITHIUM CARBONATE 300 MG CAP PO SCH (22:10)
[2016-07-27 07:10] LABS: Glucose,Whole Blood 152 mg/dL (75-99)
[2016-07-27] MEDS: INSULIN LISPRO (humaLOG) 300 UNIT/3 ML VIAL SQ SCH ×4 (08:05→20:51)
[2016-07-27] MEDS: GLIMEPIRIDE 4 MG TAB PO SCH ×2 (08:05→17:48)
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
[2016-07-27] MEDS: DULoxetine HCL 60 MG CAPSULE.DR PO SCH (09:47)
[2016-07-27] MEDS: ALLOPURINOL 300 MG TAB PO SCH (09:47)
[2016-07-27] MEDS: BACLOFEN 10 MG TAB PO SCH ×3 (09:47→20:49)
[2016-07-27] MEDS: ZIPRASIDONE 20 MG CAP PO SCH ×2 (09:47→20:49)
[2016-07-27] MEDS: GABAPENTIN 300 MG CAP PO SCH ×3 (09:47→20:50)
[2016-07-27] MEDS: metFORMIN 500 MG TAB PO SCH ×2 (09:48→20:48)
[2016-07-27] MEDS: hydrOXYzine PAMOATE 25 MG CAP PO PRN (09:53)
[2016-07-27] MEDS: DULoxetine HCL 30 MG CAPSULE.DR PO SCH (09:56)
[2016-07-27 12:21] LABS: Glucose,Whole Blood 199 mg/dL (75-99)
[2016-07-27 17:41] LABS: Glucose,Whole Blood 225 mg/dL (75-99)
[2016-07-27 20:22] LABS: Glucose,Whole Blood 224 mg/dL (75-99)
[2016-07-27] MEDS: ZIPRASIDONE 20 MG VIAL IM PRN (20:48)
[2016-07-27] MEDS: traZODone HCL 50 MG TAB PO SCH (20:48)
[2016-07-27] MEDS: LITHIUM CARBONATE 300 MG CAP PO SCH (20:48)
[2016-07-27] MEDS ORDERED: WATER FOR INJECTION, STERILE 10 ML IV ONE (20:48)
[2016-07-28 06:45] LABS: Glucose,Whole Blood 124 mg/dL (75-99)
[2016-07-28] MEDS: INSULIN LISPRO (humaLOG) 300 UNIT/3 ML VIAL SQ SCH ×4 (08:10→20:23)
[2016-07-28] MEDS: GLIMEPIRIDE 4 MG TAB PO SCH ×2 (08:15→17:12)
[2016-07-28] MEDS: DULoxetine HCL 60 MG CAPSULE.DR PO SCH (09:08)
[2016-07-28] MEDS: ALLOPURINOL 300 MG TAB PO SCH (09:08)
[2016-07-28] MEDS: GABAPENTIN 300 MG CAP PO SCH ×3 (09:08→21:16)
[2016-07-28] MEDS: BACLOFEN 10 MG TAB PO SCH ×3 (09:08→21:16)
[2016-07-28] MEDS: ZIPRASIDONE 20 MG CAP PO SCH (09:09)
[2016-07-28] MEDS: metFORMIN 500 MG TAB PO SCH ×2 (09:09→20:21)
[2016-07-28] MEDS: hydrOXYzine PAMOATE 25 MG CAP PO PRN (09:12)
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
[2016-07-28 11:58] LABS: Glucose,Whole Blood 273 mg/dL (75-99)
[2016-07-28 17:25] LABS: Glucose,Whole Blood 149 mg/dL (75-99)
[2016-07-28 20:15] LABS: Glucose,Whole Blood 175 mg/dL (75-99)
[2016-07-28] MEDS: MELATONIN 5 MG TABLET PO SCH (20:21)
[2016-07-28] MEDS: LITHIUM CARBONATE 300 MG CAP PO SCH (20:21)
[2016-07-29 05:32] LABS: Glucose,Whole Blood 147 mg/dL (75-99)
[2016-07-29] MEDS: GLIMEPIRIDE 4 MG TAB PO SCH ×2 (08:15→17:58)
[2016-07-29] MEDS: INSULIN LISPRO (humaLOG) 300 UNIT/3 ML VIAL SQ SCH ×4 (08:15→20:25)
[2016-07-29] MEDS: ALLOPURINOL 300 MG TAB PO SCH (09:20)
[2016-07-29] MEDS: BACLOFEN 10 MG TAB PO SCH ×3 (09:20→21:24)
[2016-07-29] MEDS: GABAPENTIN 300 MG CAP PO SCH ×3 (09:20→21:27)
[2016-07-29] MEDS: metFORMIN 500 MG TAB PO SCH ×2 (09:20→21:24)
[2016-07-29] MEDS: DULoxetine HCL 60 MG CAPSULE.DR PO SCH (09:20)
[2016-07-29] MEDS: hydrOXYzine PAMOATE 25 MG CAP PO PRN (09:21)
--- NOTE | 2016-07-29 09:43 | P.PN ---
Progress Note - Text Interval history: The patient is found in the dining room he follows me to an interview room. He reports that he made an effort not to ask for when necessary medication yesterday but it was a struggle. He did utilize other coping skills such as talking to staff. He states today that the auditory hallucinations are present and he hears 2 voices. One is a male voice that is reassuring the other is the voice of his mother who was scolding. He states that's his mother's voice is very derogatory and will direct self-harm. He indicates that the voices are always there even when his mood is better. We reviewed his current medications again. He reports getting approximate 5 hours of sleep with the melatonin and is willing to try this further. He has been participating in meals and attending groups area he reports a continued depressed mood with hopelessness thinking. Mental status exam: The patient is a morbidly obese male he seated calmly in the chair he is dressed in his own clothing. Hygiene and grooming are fair. Eye contact is appropriate. He does engage in conversation. He reports his mood is depressed he feels hopeless he does still have suicidal thoughts from time to time. He reports auditory hallucinations that are commanding self-harm at times. No specific delusions endorsed. Affect is blunted. He demonstrates no verbal or physical aggressiveness. Insight and judgment remain impaired. Cognitively he is oriented to person place and date. He is reporting no homicidal ideation. Plan: We continue to assess the patient's symptoms and review medications and medication options. We decided that we would go back to the [facility] to address the complaint of auditory hallucinations we will continue the Cymbalta. In order to avoid polypharmacy we will discontinue the lithium. Continue melatonin at night for sleep. He is encouraged to continue utilizing coping skills versus just focusing on medication management area vital signs reviewed. Blood sugar results reviewed. The patient requires continued psychiatric hospitalization as he is not yet sufficiently stabilized and would likely decompensate if discharged today.
[2016-07-29] MEDS: ZIPRASIDONE 40 MG CAP PO SCH ×2 (10:30→18:01)
[2016-07-29 12:31] LABS: Glucose,Whole Blood 144 mg/dL (75-99)
[2016-07-29 18:09] LABS: Glucose,Whole Blood 155 mg/dL (75-99)
[2016-07-29 20:17] LABS: Glucose,Whole Blood 171 mg/dL (75-99)
[2016-07-29] MEDS: MELATONIN 5 MG TABLET PO SCH (21:23)
[2016-07-30 06:09] LABS: Glucose,Whole Blood 153 mg/dL (75-99)
[2016-07-30] MEDS: GLIMEPIRIDE 4 MG TAB PO SCH ×2 (08:02→16:27)
[2016-07-30] MEDS: INSULIN LISPRO (humaLOG) 300 UNIT/3 ML VIAL SQ SCH ×4 (08:02→20:33)
[2016-07-30] MEDS: GABAPENTIN 300 MG CAP PO SCH ×3 (08:07→20:36)
[2016-07-30] MEDS: ALLOPURINOL 300 MG TAB PO SCH (08:07)
[2016-07-30] MEDS: DULoxetine HCL 60 MG CAPSULE.DR PO SCH (08:07)
[2016-07-30] MEDS: ZIPRASIDONE 40 MG CAP PO SCH ×2 (08:07→18:00)
[2016-07-30] MEDS: BACLOFEN 10 MG TAB PO SCH ×3 (08:07→20:35)
[2016-07-30] MEDS: metFORMIN 500 MG TAB PO SCH ×2 (08:07→20:36)
--- NOTE | 2016-07-30 12:01 | P.PN ---
Progress Note - Text Interval history: Patient is seen in cross coverage today for Dr. Montelongo. He reports that today is a better day. He feels like the Geodon is helping him with his auditory hallucinations. Reports that his hallucinations are less in terms of the number of voices and less frequent. He reports currently having auditory hallucinations but reports that they are positive ones. He does seem to be eating well. He says he didn't sleep that well last night about 3 hours. Mental status exam: He is alert and cooperative with the interview. Speech is fluent, not rapid or pressured. Thought processes organized. His affect is restricted. His mood he describes overall is doing better but still depressed. He denies any thoughts of harm to self or others. He admits to some ongoing auditory hallucinations but says they are less in number and less frequent and reports that his current hallucinations are positive. He does not make any viki delusional statements. He does not show any agitation. Plan: Maintain current psychotropic medications, which include Geodon and Cymbalta. We'll monitor for any medication side effects and monitor for ongoing response. Continue to cover this patient for Dr. Montelongo through the weekend.
[2016-07-30 12:28] LABS: Glucose,Whole Blood 185 mg/dL (75-99)
[2016-07-30] MEDS: hydrOXYzine PAMOATE 25 MG CAP PO PRN (16:28)
[2016-07-30 17:42] LABS: Glucose,Whole Blood 154 mg/dL (75-99)
[2016-07-30 20:18] LABS: Glucose,Whole Blood 160 mg/dL (75-99)
[2016-07-30] MEDS: MELATONIN 5 MG TABLET PO SCH (20:35)
[2016-07-31 06:19] LABS: Glucose,Whole Blood 142 mg/dL (75-99)
[2016-07-31] MEDS: GLIMEPIRIDE 4 MG TAB PO SCH ×2 (07:43→16:07)
[2016-07-31] MEDS: INSULIN LISPRO (humaLOG) 300 UNIT/3 ML VIAL SQ SCH ×4 (07:43→20:29)
[2016-07-31] MEDS: ZIPRASIDONE 40 MG CAP PO SCH ×2 (07:44→17:57)
[2016-07-31] MEDS: ALLOPURINOL 300 MG TAB PO SCH (07:47)
[2016-07-31] MEDS: BACLOFEN 10 MG TAB PO SCH ×3 (07:47→20:34)
[2016-07-31] MEDS: GABAPENTIN 300 MG CAP PO SCH ×3 (07:47→20:34)
[2016-07-31] MEDS: DULoxetine HCL 60 MG CAPSULE.DR PO SCH (07:47)
[2016-07-31] MEDS: metFORMIN 500 MG TAB PO SCH ×2 (07:48→20:35)
[2016-07-31 12:35] LABS: Glucose,Whole Blood 174 mg/dL (75-99)
--- NOTE | 2016-07-31 15:52 | P.PN ---
Progress Note - Text Interval history: Patient seen in cross coverage today for Dr. Montelongo. He reports that his voices are less intense. He initially verbalizes that he is feeling rough today but then he describes his mood as optimistic. He makes reference to interest in going back on lithium which he plans to discuss further with Dr. Leon. He relates that the Vistaril is not really helping his level of anxiety. He makes reference to "I've always been suicidal." Mental status exam: He is alert and cooperative with the interview. His speech is fluent, not rapid or pressured. Thought processes are organized. His mood he describes as optimistic. He has restricted affect. He admits to some ongoing thoughts of suicide but reports that he feels safe here on the unit. He denies any thoughts of harm to others. No evidence of viki delusional thoughts. He does describe continued to have auditory hallucinations which are less intense. He does not show any agitation. Plan: We'll maintain current psychotropic medication regimen. Continue to monitor his mood monitor regarding suicidal ideations and for any psychosis symptoms. Dr. Montelongo to resume care this patient starting tomorrow.
[2016-07-31] MEDS: hydrOXYzine PAMOATE 25 MG CAP PO PRN (16:09)
[2016-07-31 17:52] LABS: Glucose,Whole Blood 128 mg/dL (75-99)
[2016-07-31 20:07] LABS: Glucose,Whole Blood 177 mg/dL (75-99)
[2016-07-31] MEDS: MELATONIN 5 MG TABLET PO SCH (20:34)
[2016-08-01 06:53] LABS: Glucose,Whole Blood 136 mg/dL (75-99)
[2016-08-01] MEDS: INSULIN LISPRO (humaLOG) 300 UNIT/3 ML VIAL SQ SCH ×4 (08:17→20:28)
[2016-08-01] MEDS: GLIMEPIRIDE 4 MG TAB PO SCH ×2 (08:19→17:35)
[2016-08-01] MEDS: GABAPENTIN 300 MG CAP PO SCH ×3 (08:21→21:38)
[2016-08-01] MEDS: metFORMIN 500 MG TAB PO SCH ×2 (08:21→20:30)
[2016-08-01] MEDS: ZIPRASIDONE 40 MG CAP PO SCH (08:22)
[2016-08-01] MEDS: BACLOFEN 10 MG TAB PO SCH ×3 (08:22→21:38)
[2016-08-01] MEDS: DULoxetine HCL 60 MG CAPSULE.DR PO SCH (08:23)
[2016-08-01] MEDS: ALLOPURINOL 300 MG TAB PO SCH (08:23)
--- NOTE | 2016-08-01 08:47 | P.PN ---
Progress Note - Text Interval history: The patient is found in the dining room he follows me to an interview room. He reports that his mood continues to be down he feels anxious and reports having hopelessness feelings. There are times that they were he feels more optimistic. He states he's trying to use his coping skills but it is a struggle when he feels anxious. He continues to experience an auditory hallucination. He feels that Geodon has helped reduce that somewhat in terms of severity. He has no questions or concerns regarding the Geodon or Cymbalta. We discussed those medications in detail again. Mental status exam: The patient is an obese male he has a disheveled appearance he is dressed in the same clothing. Eye contact is appropriate speech is fluent and spontaneous nonpressured. He reports a depressed mood with anxiety and hopelessness feelings. He states he's scared of himself when he feels that way in terms of suicidal ideation. He is reporting no homicidal ideation. Continues to experience a single auditory hallucination that is derogatory at times. He demonstrates no verbal or physical aggressiveness. Plan: The patient will continue on his current psychotropic medications we will increase the Geodon to 60 mg twice daily. We will continue to monitor him for safety. He is encouraged to continue utilizing coping skills versus trying to externalize the solution to when necessary medication. He has shown some improvement but is not yet stable for discharge.
[2016-08-01] MEDS ORDERED: ZIPRASIDONE 60 MG CAP PO SCH ×2 (09:00→21:00)
[2016-08-01] MEDS ORDERED: ZIPRASIDONE 20 MG CAP PO ONE (09:00)
[2016-08-01 12:15] LABS: Glucose,Whole Blood 216 mg/dL (75-99)
[2016-08-01] MEDS: ZIPRASIDONE 60 MG CAP PO SCH (17:35)
[2016-08-01 17:38] LABS: Glucose,Whole Blood 153 mg/dL (75-99)
[2016-08-01 20:18] LABS: Glucose,Whole Blood 188 mg/dL (75-99)
[2016-08-01] MEDS: MELATONIN 5 MG TABLET PO SCH (20:30)
[2016-08-02 06:48] LABS: Glucose,Whole Blood 162 mg/dL (75-99)
[2016-08-02 06:57] VITALS: RESP 20
[2016-08-02] MEDS: INSULIN LISPRO (humaLOG) 300 UNIT/3 ML VIAL SQ SCH ×4 (08:02→21:24)
[2016-08-02] MEDS: GLIMEPIRIDE 4 MG TAB PO SCH ×2 (08:03→17:45)
[2016-08-02] MEDS: ZIPRASIDONE 60 MG CAP PO SCH ×2 (08:03→17:46)
[2016-08-02] MEDS: metFORMIN 500 MG TAB PO SCH ×2 (08:04→21:25)
[2016-08-02] MEDS: BACLOFEN 10 MG TAB PO SCH ×3 (08:04→21:25)
[2016-08-02] MEDS: ALLOPURINOL 300 MG TAB PO SCH (08:04)
[2016-08-02] MEDS: GABAPENTIN 300 MG CAP PO SCH ×3 (08:04→21:25)
[2016-08-02] MEDS: DULoxetine HCL 60 MG CAPSULE.DR PO SCH (08:04)
--- NOTE | 2016-08-02 10:58 | P.PN ---
Progress Note - Text Interval history: The patient is found in the hallway he follows me to an interview room. He states that his mood continues to improve he is feeling more hopeful. He is happy to report that the auditory hallucinations have stopped. He is complying with medication and tolerating them well without any concern of side effects. He did make contact with a family friend and will be staying with them until he is placed with [facility]. He continues to call [facility] daily to see if there is a cancellation so that he can get in sooner. He continues to attend groups. Mental status exam: The patient is a morbidly obese male eye contact is appropriate speech is fluent spontaneous nonpressured. He reports his mood is better he is feeling more hopeful and he denies having any suicidal or homicidal ideation intent or plan. He is endorsing no auditory or visual hallucinations no specific delusions. Thought process is linear insight and judgment grossly intact. He demonstrates no verbal or physical aggressiveness. Affect is euthymic. Cognitively he remains grossly intact. Plan: The patient will continue on his current psychotropic medications. We will continue to monitor him for safety. We will consider discharging him in the next 1-2 days if he demonstrates further improvement and remains clinically stable. Vital signs reviewed.
[2016-08-02 12:40] LABS: Glucose,Whole Blood 174 mg/dL (75-99)
[2016-08-02 18:00] LABS: Glucose,Whole Blood 166 mg/dL (75-99)
[2016-08-02 20:19] LABS: Glucose,Whole Blood 217 mg/dL (75-99)
[2016-08-02] MEDS: MELATONIN 5 MG TABLET PO SCH (21:25)
[2016-08-02] MEDS: hydrOXYzine PAMOATE 25 MG CAP PO PRN (21:27)
[2016-08-03 06:18] VITALS: BP 125/65; PULSE 63; TEMP 97.5
[2016-08-03 06:32] LABS: Glucose,Whole Blood 149 mg/dL (75-99)
[2016-08-03] MEDS: INSULIN LISPRO (humaLOG) 300 UNIT/3 ML VIAL SQ SCH (08:08)
[2016-08-03] MEDS: GLIMEPIRIDE 4 MG TAB PO SCH (08:47)
[2016-08-03] MEDS: GABAPENTIN 300 MG CAP PO SCH (08:48)
[2016-08-03] MEDS: BACLOFEN 10 MG TAB PO SCH (08:48)
[2016-08-03] MEDS: ALLOPURINOL 300 MG TAB PO SCH (08:48)
[2016-08-03] MEDS: ZIPRASIDONE 60 MG CAP PO SCH (08:48)
[2016-08-03] MEDS: DULoxetine HCL 60 MG CAPSULE.DR PO SCH (08:48)
[2016-08-03] MEDS: metFORMIN 500 MG TAB PO SCH (08:49)
--- NOTE | 2016-08-03 09:40 | P.DS ---
Providers Date of admission: 07/22/16 19:50 Expected date of discharge: 08/03/16 Attending physician: Keaton Montelongo Consults: 07/22/16 19:43 Consult Physician Routine Consulting Provider: Dillon Magana Consult Reason/Comments: Follow up H & P Do you want consulting provider notified?: Yes Primary care physician: Rachana Harper - Discharge Diagnosis(es) (1) Major depressive disorder, recurrent, severe with psychotic features Current Visit: Yes Status: Acute Priority: High (2) Anxiety disorder, unspecified Current Visit: Yes Status: Acute Priority: Medium (3) Cocaine use disorder, mild, abuse Current Visit: Yes Status: Acute Priority: High Hospital Course: This patient is a 45-year-old male who was admitted to the mental health unit through the emergency room. The patient was brought in by a friend and was reported he was suicidal. Apparently he tried to overdose with crack cocaine hoping it would affect his heart. He described worsening symptoms of depression and suicidal ideation for the month preceding this admission. He reported that he had lost everything he was spiraling downward and was a waste of air. For full details please refer to Dr. Calvert's psychiatric evaluation dated 07/23/2016. Summary of hospital course: The patient was admitted to the mental health unit he signed in voluntarily. He was initially seen by Dr. Calvert isolator assumed his care. He was restarted on his Wellbutrin and the plan was to titrated back up to its previous dose. He was started on lithium at bedtime. After meeting with him and completing an interview it appears that he feels the Wellbutrin stopped working a long time ago. We decided to change that medication to Cymbalta to address depressive and anxiety symptoms as well as possible diabetic neuropathy relief. The lithium was continued briefly he was also started on Geodon for reports of hallucinations. We decided ultimately to forego the lithium and use Geodon to treat his psychosis and possibly as an augmentation strategy. The dose was titrated of Geodon and over the course of the hospitalization he reported a resolution of auditory hallucinations. The patient did well with attending groups he demonstrated no agitated behavior. He was seen by the internal medicine physician. The patient tolerated the psychotropic medication changes no adverse side effects were reported. We spent time discussing these medications and the need for him to develop coping skills further rather than just externalizing the solution to taking medication. He was receptive and did practice suggested techniques. He was self-motivated for attending [facility] for inpatient chemical dependency treatment. He is scheduled to go in approximately one week. His plan is to stay with a female friend until his placement date and he is hoping to follow up with [facility] upon discharge from [facility]. Mental status exam: The patient is a morbidly obese male he is dressed in his own clothing eye contact is appropriate speech is fluent spontaneous nonpressured. He is reporting his mood is "good" affect is mildly constricted. He is reporting no suicidal or homicidal ideation intent or plan. He is endorsing no auditory or visual hallucinations. He is endorsing no specific delusions. There is no overt evidence of psychosis. Thought process is linear he demonstrates no tangential thinking loose associations or flight of ideas. He demonstrates no verbal or physical aggressiveness. Insight and judgment have improved. Cognitively he remains oriented to person place and date and is grossly intact. He demonstrates no abnormal involuntary movements. There is no psychomotor agitation or slowing. He is pleasant cooperative and easily directed in the session. He spontaneously reports future oriented thinking. Impressions 1. Major depressive disorder recurrent severe with psychosis, anxiety and specified, cocaine use disorder, rule out benzodiazepine use disorder 2. Cluster B traits rule out borderline features 3. Diabetes type 2, subsequent neuropathy Plan: The patient's will be discharged from mental health unit today he will reside with his female friend until placement at [facility] for inpatient chemical dependency treatment. He will continue on Cymbalta 60 mg daily, Geodon 60 mg twice daily with food, Vistaril 25 mg up to twice daily as needed for anxiety symptoms. He is instructed to abstain from any alcohol marijuana or any other illicit drug use and he is agreeable. He will be placed at [facility] in approximately one week. We discussed that relapse with use of alcohol or illicit drugs would elevate his safety risk. He is instructed to return to the hospital at any time with any acute safety concerns and he is agreeable. He is appropriate for transition to outpatient care at this time Patient Condition at Discharge: Stable Plan - Discharge Summary New Discharge Prescriptions: New DULoxetine HCL [Cymbalta] 60 mg PO DAILY #30 cap hydrOXYzine PAMOATE [Vistaril] 25 mg PO BID PRN #30 cap PRN Reason: Anxiety Ziprasidone [Geodon] 60 mg PO BID-W/MEALS #60 cap Continue metFORMIN HCL [Metformin HCl] 500 mg PO BID Glimepiride [Amaryl] 2 mg PO BID Lisinopril-Hctz 20-25 mg [Zestoretic 20-25] 1 tab PO DAILY Furosemide [Lasix] 40 mg PO DAILY Baclofen [Lioresal] 10 mg PO TID Gabapentin [Neurontin] 600 mg PO TID Allopurinol [Zyloprim] 300 mg PO DAILY Canagliflozin [Invokana] 300 mg PO DAILY Discontinued buPROPion HCL [Wellbutrin XL] 300 mg PO DAILY Citalopram Hydrobromide [CeleXA] 40 mg PO DAILY ARIPiprazole [Abilify] 2 mg PO DAILY Phentermine HCl [Adipex-P] 37.5 mg PO QAM Hydrocodone/Acetaminophen [[place] 10-325 Tablet] 1 tab PO BID PRN PRN Reason: Pain ALPRAZolam [Xanax] 2 mg PO BID Discharge Medication List Allopurinol [Zyloprim] 300 mg PO DAILY 07/23/16 [History] Baclofen [Lioresal] 10 mg PO TID 07/23/16 [History] Canagliflozin [Invokana] 300 mg PO DAILY 07/23/16 [History] Furosemide [Lasix] 40 mg PO DAILY 07/23/16 [History] Gabapentin [Neurontin] 600 mg PO TID 07/23/16 [History] Glimepiride [Amaryl] 2 mg PO BID 07/23/16 [History] Lisinopril-Hctz 20-25 mg [Zestoretic 20-25] 1 tab PO DAILY 07/23/16 [History] metFORMIN HCL [Metformin HCl] 500 mg PO BID 07/23/16 [History] DULoxetine HCL [Cymbalta] 60 mg PO DAILY #30 cap 08/03/16 [Rx] Ziprasidone [Geodon] 60 mg PO BID-W/MEALS #60 cap 08/03/16 [Rx] hydrOXYzine PAMOATE [Vistaril] 25 mg PO BID PRN #30 cap 08/03/16 [Rx] Follow up Appointment(s)/Referral(s): [facility] [Outside] - 08/10/16 10:00 am (Rehab intake 08/10/16 at 10:00 am) Meredith Reich MD [Primary Care Provider] - 1-2 days
[2016-08-03 11:53] LABS: Glucose,Whole Blood 199 mg/dL (75-99)
== END 2016-08-03 12:22 | disposition home or self-care (01) | DRG 885 ==
LOC: EC 16:17 → 3MHU 19:50
PROVIDERS: ADMIT Psychiatry & Neurology Psychiatry; ATTEND Psychiatry & Neurology Psychiatry
DX: F33.3 Major depressive disorder, recurrent, severe with psychotic symptoms (principal); R45.851 Suicidal ideations; E11.21 Type 2 diabetes mellitus with diabetic nephropathy; E11.42 Type 2 diabetes mellitus with diabetic polyneuropathy; I95.9 Hypotension, unspecified; E66.01 Morbid (severe) obesity due to excess calories; D72.829 Elevated white blood cell count, unspecified; E78.5 Hyperlipidemia, unspecified; F12.90 Cannabis use, unspecified, uncomplicated; F14.10 Cocaine abuse, uncomplicated; F41.9 Anxiety disorder, unspecified; G47.20 Circadian rhythm sleep disorder, unspecified type; I10 Essential (primary) hypertension; M10.9 Gout, unspecified; F19.10 Other psychoactive substance abuse, uncomplicated; Z79.84 Long term (current) use of oral hypoglycemic drugs; Z79.899 Other long term (current) drug therapy; Z91.410 Personal history of adult physical and sexual abuse; Z63.8 Other specified problems related to primary support group; Z91.5 Personal history of self-harm; Z82.49 Family history of ischemic heart disease and other diseases of the circulatory system; Z81.8 Family history of other mental and behavioral disorders
CPT/HCPCS: 36415; 71020; 80053; 80306; 82550; 82553; 83036; 83735; 84443; 84484; 85025; 85610; 85730; 93005; 99285

== ENCOUNTER → 2016-09-06 | Outpatient (CLI) | payer MEDICARE ==
--- NOTE | 2016-09-06 08:48 | US ---
EXAMINATION TYPE: US liver DATE OF EXAM: 09/06/2016 COMPARISON: NONE CLINICAL HISTORY: R94.5 Abnormal liver function test. EXAM MEASUREMENTS: Liver Length: 15.9 cm Gallbladder Wall: 0.2 cm CBD: 0.3 cm Right Kidney: 14.9 x 5.7 x 7.2 cm Morbidly obese patient, 5 ft 9 inches, 357 pounds. Pancreas: visualized portions wnl Liver: difficult to penetrate, loss of vascular landmarks. Gallbladder: No stones seen Evidence for sonographic Cardoza's sign: No CBD: wnl Right Kidney: No hydronephrosis or masses seen, lobular contour. The pancreas is poorly visualized. The liver is normal in size but echogenic and likely fatty infiltrated. The gallbladder is unremarkable without cholelithiasis. The gallbladder wall measures 2 mm. The dista l common hepatic duct measures 3 mm. There is no sonographic Cardoza's sign. The right kidney is slightly lobulated but otherwise unremarkable. IMPRESSION: PROBABLE FATTY INFILTRATION OF THE LIVER.
== END | disposition home or self-care (01) ==
LOC: RADUSWWP 07:39
PROVIDERS: ATTEND Internal Medicine
DX: R94.5 Abnormal results of liver function studies (principal)
CPT/HCPCS: 76705

== ENCOUNTER 2016-09-12 17:27 | Inpatient (IN) | payer MEDICARE ==
--- NOTE | 2016-09-12 18:06 | ED ---
General Adult HPI - General Chief complaint: Psychiatric Symptoms Stated complaint: Suicidal Time Seen by Provider: 09/12/16 18:00 Source: patient, RN notes reviewed Mode of arrival: ambulatory Limitations: no limitations - History of Present Illness Initial comments: This is a 45-year-old male who presents emergency Department with a past medical history significant for bipolar and PTSD and depression. Patient states the last 3 days been depressed and has had suicidal thoughts area patient states today he woke up and felt as though he really wanted to harm himself. Patient states in the past he has tried to commit suicide by cutting his wrists. Patient denies any drinking or drug use. Patient denies taking any extra pills today in fact patient states he has not taken his prescribed medications in the last 3 days. Patient denies any physical complaints today. Patient denies fever chills or cough. Patient denies any chest pain abdominal pain in her. Patient denies any difficulty breathing shortness of breath patient denies any nausea vomiting. Patient denies any headache - Related Data Home Medications Medication Instructions Recorded Confirmed Allopurinol [Zyloprim] 300 mg PO DAILY 07/23/16 09/12/16 Albuterol Sulfate [Proair Hfa] 2 puff INHALATION RT-Q6H PRN 09/12/16 09/12/16 Canagliflozin [Invokana] 300 mg PO DAILY 09/12/16 09/12/16 Gabapentin 800 mg PO TID 09/12/16 09/12/16 Insulin Aspart [NovoLOG Flexpen] See Protocol SQ TID-W/MEALS 09/12/16 09/12/16 Insulin Detemir [Levemir Flextouch] 20 units SQ HS 09/12/16 09/12/16 Simvastatin [Zocor] 40 mg PO HS 09/12/16 09/12/16 Ziprasidone [Geodon] 60 mg PO BID 09/12/16 09/12/16 metFORMIN HCL ER [Glucophage Xr] 500 mg PO BID 09/12/16 09/12/16 Previous Rx's Medication Instructions Recorded DULoxetine HCL [Cymbalta] 60 mg PO DAILY #30 cap 08/03/16 hydrOXYzine PAMOATE [Vistaril] 25 mg PO BID PRN #30 cap 08/03/16 Allergies Allergy/AdvReac Type Severity Reaction Status Date / Time ibuprofen [From Motrin] Allergy Rash/Hives Verified 09/12/16 18:27 Review of Systems ROS Statement: Those systems with pertinent positive or pertinent negative responses have been documented in the HPI. ROS Other: All systems not noted in ROS Statement are negative. Past Medical History Past Medical History: Diabetes Mellitus, Hyperlipidemia, Hypertension Additional Past Medical History / Comment(s): neuropathy, gout, depression. History of Any Multi-Drug Resistant Organisms: None Reported Additional Past Surgical History / Comment(s): eyes, left foot surgery. Past Anesthesia/Blood Transfusion Reactions: No Reported Reaction Past Psychological History: Anxiety, Bipolar, Depression, Schizophrenia Smoking Status: Never smoker Past Alcohol Use History: None Reported Past Drug Use History: Cocaine - Past Family History Mother Family Medical History: Cancer, Diabetes Mellitus Father Family Medical History: Myocardial Infarction ([place]) Additional Family Medical History / Comment(s): stroke General Exam - General Exam Comments Initial Comments: GENERAL: Patient is well-developed and well-nourished. Patient is nontoxic and well- hydrated and is in no acute distress. ENT: Neck is soft and supple. No significant lymphadenopathy is noted. Oropharynx is clear. Moist mucous membranes. Neck has full range of motion without eliciting any pain. EYES: The sclera were anicteric and conjunctiva were pink and moist. Extraocular movements were intact and pupils were equal round and reactive to light. Eyelids were unremarkable. PULMONARY: Unlabored respirations. Good breath sounds bilaterally. No audible rales rhonchi or wheezing was noted. CARDIOVASCULAR: There is a regular rate and rhythm without any murmurs gallops or rubs. ABDOMEN: Soft and nontender with normal bowel sounds. SKIN: Skin is clear with no lesions or rashes and otherwise unremarkable. NEUROLOGIC: Patient is alert and oriented x3. Cranial nerves II through XII are grossly intact. Motor and sensory are also intact. Normal speech, volume and content. Symmetrical smile. MUSCULOSKELETAL: Normal extremities with adequate strength and full range of motion. LYMPHATICS: No significant lymphadenopathy is noted PSYCHIATRIC: Patient has very flat affect and does state he is suicidal. He has not made any attempt currently. Limitations: no limitations Course Vital Signs 09/12/16 17:57 Temperature 98.2 F Pulse Rate 88 Respiratory 18 Rate Blood Pressure 158/94 O2 Sat by Pulse 96 Oximetry Medical Decision Making - Medical Decision Making EPS came down and evaluated the patient patient will be admitted for depression and suicidal ideations. - Lab Data Lab Results 09/12/16 Range/Units 18:08 Urine Opiates Screen Not Detected (NotDetected) Ur Oxycodone Screen Not Detected (NotDetected) Urine Methadone Screen Not Detected (NotDetected) Ur Propoxyphene Screen Not Detected (NotDetected) Ur Barbiturates Screen Not Detected (NotDetected) U Tricyclic Antidepress Not Detected (NotDetected) Ur Phencyclidine Scrn Not Detected (NotDetected) Ur Amphetamines Screen Not Detected (NotDetected) U Methamphetamines Scrn Not Detected (NotDetected) U Benzodiazepines Scrn Not Detected (NotDetected) Urine Cocaine Screen Detected H (NotDetected) U Marijuana (THC) Screen Detected H (NotDetected) Disposition Clinical Impression: Suicidal ideation, Depression Disposition: ADMITTED IP TO THIS HOSP Referrals: Meredith Reich MD [Primary Care Provider] - 1-2 days Time of Disposition: 18:37
[2016-09-12] MEDS ORDERED: MAG HYDROX/AL HYDROX/SIMETH 30 ML CUP PO PRN (19:20)
[2016-09-12] MEDS ORDERED: MAGNESIUM HYDROXIDE 2,400 MG/10 ML CUP PO PRN (19:20)
[2016-09-12] MEDS ORDERED: ZIPRASIDONE 20 MG VIAL IM PRN (19:20)
[2016-09-12] MEDS ORDERED: ACETAMINOPHEN TAB 325 MG TAB PO PRN (19:20)
[2016-09-12] MEDS ORDERED: LORazepam 2 MG/ML SYRINGE IM PRN (19:28)
[2016-09-12 20:03] LABS: Glucose,Whole Blood 144 mg/dL (75-99)
[2016-09-12] MEDS: ATORVASTATIN 20 MG TAB PO SCH (20:39)
[2016-09-12] MEDS: ZIPRASIDONE 40 MG CAP PO SCH (20:39)
[2016-09-12] MEDS: INSULIN LISPRO (humaLOG) 300 UNIT/3 ML VIAL SQ SCH (20:39)
[2016-09-12] MEDS: metFORMIN 500 MG TAB PO SCH (20:39)
[2016-09-12] MEDS: INSULIN DETEMIR 100 UNIT/ML 10 ML VIAL SQ SCH (20:40)
[2016-09-12] MEDS: GABAPENTIN 400 MG CAP PO SCH (21:56)
[2016-09-13 07:17] LABS: Glucose,Whole Blood 160 mg/dL (75-99)
[2016-09-13] MEDS: INSULIN LISPRO (humaLOG) 300 UNIT/3 ML VIAL SQ SCH ×4 (07:45→21:48)
[2016-09-13] MEDS: GABAPENTIN 400 MG CAP PO SCH ×3 (08:56→21:50)
[2016-09-13] MEDS: ALLOPURINOL 300 MG TAB PO SCH (08:56)
[2016-09-13] MEDS: ZIPRASIDONE 40 MG CAP PO SCH (08:56)
[2016-09-13] MEDS: metFORMIN 500 MG TAB PO SCH ×2 (08:56→21:50)
[2016-09-13 09:40] LABS: Basophils # (A) 0.1 k/uL (0-0.2); Basophils % (A) 1 %; CH 30.7; CHCM 33.6; Eosinophils # (A) 0.2 k/uL (0-0.7); Eosinophils % (A) 3 %; HDW 2.77; HGB 19.2 gm/dL (13.0-17.5); Luc # (Auto) 0.16; Luc % (Auto) 2; Lymphocytes # (A) 3.2 k/uL (1.0-4.8); Lymphocytes % (A) 37 %; MCH 30.5 pg (25.0-35.0); MCHC 33.2 g/dL (31.0-37.0); MCV 92.1 fL (80.0-100.0); Mean Platelet Volume 8.9; Monocytes # (A) 0.6 k/uL (0-1.0); Monocytes % (A) 6 %; Neutrophils # (A) 4.5 k/uL (1.3-7.7); Neutrophils % (A) 52 %; RDW 15.5 % (11.5-15.5); WBC 8.7 k/uL (3.8-10.6); WBC (Perox) 8.82
--- NOTE | 2016-09-13 10:02 | P.HP ---
Psychiatric H&P - . History & Physical: Allergies Allergy/AdvReac Type Severity Reaction Status Date / Time ibuprofen [From Motrin] Allergy Rash/Hives Verified 09/12/16 18:27 Vital Signs Temp 97.6 F 09/13/16 07:34 Pulse 62 09/13/16 07:34 Resp 16 09/13/16 07:34 BP 163/80 09/13/16 07:34 Pulse Ox 95 09/12/16 20:09 Intake & Output 09/12/16 09/13/16 09/13/16 18:59 06:59 18:59 Weight 153.768 kg 151.999 kg Laboratory Last Values POC Glucose (mg/dL) 160 mg/dL (75-99) H 09/13/16 07:15 POC Glu Community Coordinator ID Sujatha Hua 09/13/16 07:15 Urine Opiates Screen Not Detected (NotDetected) 09/12/16 18:08 Ur Oxycodone Screen Not Detected (NotDetected) 09/12/16 18:08 Urine Methadone Screen Not Detected (NotDetected) 09/12/16 18:08 Ur Propoxyphene Screen Not Detected (NotDetected) 09/12/16 18:08 Ur Barbiturates Screen Not Detected (NotDetected) 09/12/16 18:08 U Tricyclic Antidepress Not Detected (NotDetected) 09/12/16 18:08 Ur Phencyclidine Scrn Not Detected (NotDetected) 09/12/16 18:08 Ur Amphetamines Screen Not Detected (NotDetected) 09/12/16 18:08 U Methamphetamines Scrn Not Detected (NotDetected) 09/12/16 18:08 U Benzodiazepines Scrn Not Detected (NotDetected) 09/12/16 18:08 Urine Cocaine Screen Detected (NotDetected) H 09/12/16 18:08 U Marijuana (THC) Screen Detected (NotDetected) H 09/12/16 18:08 09/13/16 09:53 IDENTIFYING DATA: This patient is a 45-year-old single male who was admitted to the mental health unit through the emergency room for suicidal ideation. HPI: The patient presents back to the mental health unit reporting suicidal ideation. He was on this mental health unit earlier in July of this year. He was hospitalized for almost 2 weeks. He was started on Cymbalta and Geodon. He had described severe symptoms of depression at that time with auditory hallucinations that were derogatory. During his last hospitalization he stabilized. He did finally admit that he had been using cocaine on a regular basis and we arranged inpatient chemical dependency treatment at [facility]. He was due to began [facility] treatment one week after discharge. The patient however did not attend [facility] he discontinued his medications and resumed using cocaine. Today he reports feeling depressed hopeless he has suicidal thoughts. He endorses auditory hallucinations again that are derogatory. No specific delusions noted he is endorsing no homicidal ideation. PAST PSYCHIATRIC HISTORY: The patient's has a history of being admitted to several psychiatric units in the past he was here just last month he has been at [facility]. He has a history of several suicide attempts in the form of medication overdose or illicit drug overdose. He has tried to injure himself by cutting. His last overdose involved trying to use cocaine to . He has no ongoing outpatient mental health services as he was supposed to follow up with [facility] upon discharge. PMH: Diabetes with subsequent neuropathy, morbid obesity ALLERGIES: Ibuprofen MEDICATIONS: He discontinued medications 1 week ago CHEMICAL DEPENDENCY HISTORY: He reports no use of alcohol, marijuana use is characterizes every other day, he has not been forthright regarding his use of cocaine. He initially reported last use was Monday, then admits Monday, then states "I'm not sure". He reports no use of heroin or other opiates. He has never attended inpatient chemical dependency treatment FAMILY PSYCHIATRIC HISTORY: Mother reportedly has depression, no known suicides in the family FAMILY CHEMICAL DEPENDENCY HISTORY: Father and grandfather known to have alcohol use disorders SOCIAL HISTORY: The patient is 45 years old she single he has no children, he is not working he is on a disability income. He graduated high school he did have some special education assistance and his curriculum. No history of abuse. Legal history no active issues but he was convicted of embezzlement of $ 14,000 was placed on probation and had to provide restitution apparently he has a felony status. MENTAL STATUS EXAM: The patient is a morbidly obese male he stressors unclothing he has a disheveled appearance hygiene and grooming are impaired. Eye contact is appropriate. He has some spontaneous speech but mainly answers questions asked of him. He endorses a depressed and hopeless mood with ongoing suicidal thoughts. He endorses auditory hallucinations that are derogatory at times. No specific delusions noted. He demonstrates no verbal or physical aggressiveness. Insight and judgment limited. No abnormal involuntary movements observed. He is oriented. STRENGTHS/WEAKNESSES: Strengths: Housing with cousin, income weaknesses: Ongoing substance use noncompliance with medication INTELLECTUAL FUNCTIONING: Average to below average IMPRESSIONS: [] 1. Major depressive disorder recurrent severe with psychosis, cocaine use disorder, rule out history of benzodiazepine use disorder, anxiety and specified 2. Cluster B traits 3. Diabetes with subsequent neuropathy PLAN: The patient has been admitted to the mental health unit he is here voluntarily. We reviewed his presenting symptoms and treatment options. We will restart the Cymbalta 60 mg daily Geodon 60 mg twice daily Vistaril 25 mg every 8 hours as needed for anxiety. He is agreeable to having us assist in arranging inpatient chemical dependency treatment. He will meet with the internal medicine physician for routine history and physical exam. Social work will meet with the patient to complete a psychosocial assessment. We will monitor him for safety and encourage his participation in the milieu.
[2016-09-13 10:05] LABS: ALT 70 U/L (21-72); AST 66 U/L (17-59); Alkaline Phosphatase 81 U/L (38-126); Anion Gap 13 mmol/L; Blood Urea Nitrogen 16 mg/dL (9-20); Calcium 9.7 mg/dL (8.4-10.2); Carbon Dioxide 24 mmol/L (22-30); Chloride 103 mmol/L (98-107); Glucose 270 mg/dL (74-99); Non-African American GFR(MDRD) >60 (>60 ml/min/1.73 sqM); Potassium 4.4 mmol/L (3.5-5.1); Sodium 140 mmol/L (137-145); Total Bilirubin 1.2 mg/dL (0.2-1.3); Total Protein 7.2 g/dL (6.3-8.2)
[2016-09-13] MEDS: DULoxetine HCL 60 MG CAPSULE.DR PO SCH (10:21)
[2016-09-13 13:00] LABS: Glucose,Whole Blood 136 mg/dL (75-99)
[2016-09-13] MEDS: ALBUTEROL INHALER 60 PUFF/8 GM INHALER INHALATION PRN ×2 (14:18→20:11)
[2016-09-13 15:22] LABS: Hemoglobin A1C 9.4 % (4.2-6.1)
--- NOTE | 2016-09-13 15:49 | P.CONS ---
History of Present Illness - Reason for Consult Consult date: 09/13/16 Advice regarding diabetes mellitus - History of Present Illness This 45-year-old gentleman with a past medical history of diabetes mellitus type 2, hypertension, hyperlipidemia being followed by Dr. Gannon was admitted to the psych floor for evaluation. The patient was apparently taking invokana. Currently blood sugars have been around 200. There is no history of fever rancorous chills no history of headache loss of consciousness seizures. Medical consultation was sought for evaluation of above-mentioned medical problems. Review of Systems ReVIEW OF SYSTEMS: ENT: No diminished vision or hearing. CARDIOVASCULAR: Mentioned earlier. RESPIRATORY: As mentioned earlier. GI: No nauscea, vomiting or diarrhea. : No dysuria or retention. NERVOUS SYSTEM: No numbness or weakness. ALLERGY/IMMUNOLOGY: No asthma or hay fever. MUSCULOSKELETAL: As mentioned earlier. HEMATOLOGY/ONCOLOGY: No history of anemia. ENDOCRINE: history of diabetes no hypothyroidism CONSTITUTIONAL: As mentioned earlier. DERMATOLOGY: Negative. PSYCHIATRY: Mentioned earlier. RHEUMATOLOGY: Negative. Past Medical History Past Medical History: Diabetes Mellitus, Hyperlipidemia, Hypertension Additional Past Medical History / Comment(s): neuropathy, gout, depression. History of Any Multi-Drug Resistant Organisms: None Reported Additional Past Surgical History / Comment(s): eyes, left foot surgery. Past Anesthesia/Blood Transfusion Reactions: No Reported Reaction Past Psychological History: Anxiety, Bipolar, Depression, Schizophrenia Smoking Status: Never smoker Past Alcohol Use History: None Reported Past Drug Use History: Cocaine - Past Family History Mother Family Medical History: Cancer, Diabetes Mellitus Father Family Medical History: Myocardial Infarction ([place]) Additional Family Medical History / Comment(s): stroke Medications and Allergies Home Medications Medication Instructions Recorded Confirmed Type Allopurinol [Zyloprim] 300 mg PO DAILY 07/23/16 09/12/16 History Albuterol Sulfate [Proair Hfa] 2 puff INHALATION RT-Q6H PRN 09/12/16 09/12/16 History Canagliflozin [Invokana] 300 mg PO DAILY 09/12/16 09/12/16 History Gabapentin 800 mg PO TID 09/12/16 09/12/16 History Insulin Aspart [NovoLOG Flexpen] See Protocol SQ TID-W/MEALS 09/12/16 09/12/16 History Insulin Detemir [Levemir Flextouch] 20 units SQ HS 09/12/16 09/12/16 History Simvastatin [Zocor] 40 mg PO HS 09/12/16 09/12/16 History Ziprasidone [Geodon] 60 mg PO BID 09/12/16 09/12/16 History metFORMIN HCL ER [Glucophage Xr] 500 mg PO BID 09/12/16 09/12/16 History Allergies Allergy/AdvReac Type Severity Reaction Status Date / Time ibuprofen [From Motrin] Allergy Rash/Hives Verified 09/12/16 18:27 Physical Exam Vitals: Vital Signs Temp Pulse Pulse Resp BP BP Pulse Ox 09/13/16 07:34 97.6 F 62 16 163/80 09/12/16 20:09 97.8 F 78 14 126/82 95 09/12/16 19:29 98.6 F 78 20 141/80 95 09/12/16 17:57 98.2 F 88 18 158/94 96 On exam, alert and oriented x3. HEENT: Conjunctivae normal. NECK: No JVD. No thyroid enlargement. No LNs CARDIOVASCULAR: S1, S2 muffled. No murmur RESPIRATION: Breath sounds diminished in the bases. No rhonchi or crackles ABDOMEN: Soft, nontender no masses palpable. Obese No ascites, LEGS: No edema. no swelling NERVOUS SYSTEM: Moves all 4 limbs. No focal deficits. Skin: no ulcer rash Joints: No active swelling Lymphatic system. No LN neck axilla or groin. Results CBC & Chem 7: 09/13/16 09:17 09/13/16 09:17 Labs: Abnormal Lab Results - Last 24 Hours (Table) 09/12/16 09/12/16 09/13/16 Range/Units 18:08 19:59 07:15 RBC (4.30-5.90) m/uL Hgb (13.0-17.5) gm/dL Hct (39.0-53.0) % Glucose (74-99) mg/dL POC Glucose (mg/dL) 144 H 160 H (75-99) mg/dL Hemoglobin A1c (4.2-6.1) % AST (17-59) U/L Urine Cocaine Screen Detected H (NotDetected) U Marijuana (THC) Screen Detected H (NotDetected) 09/13/16 09/13/16 09/13/16 Range/Units 09:17 09:17 09:17 RBC 6.30 H (4.30-5.90) m/uL Hgb 19.2 H (13.0-17.5) gm/dL Hct 58.0 H (39.0-53.0) % Glucose 270 H (74-99) mg/dL POC Glucose (mg/dL) (75-99) mg/dL Hemoglobin A1c 9.4 H (4.2-6.1) % AST 66 H (17-59) U/L Urine Cocaine Screen (NotDetected) U Marijuana (THC) Screen (NotDetected) 09/13/16 Range/Units 12:54 RBC (4.30-5.90) m/uL Hgb (13.0-17.5) gm/dL Hct (39.0-53.0) % Glucose (74-99) mg/dL POC Glucose (mg/dL) 136 H (75-99) mg/dL Hemoglobin A1c (4.2-6.1) % AST (17-59) U/L Urine Cocaine Screen (NotDetected) U Marijuana (THC) Screen (NotDetected) Assessment and Plan Plan: Assessment 1. Diabetes mellitus type 2. 2. Hypertension 3. Hyperlipidemia 4. Psychosis for evaluation Plan In this 45-year-old gentleman who was admitted for psychiatric evaluation I would recommend to continue home medications. Invokana may be started. if it is not available in the pharmacy patient could get his medications here or alternatively he can also continue with the insulins and also use sliding scale to monitor the blood sugar and adjust. consistent carb diet was advised also advised close follow-up with dr. gannon in the out pt. thank you dr. daniels for letting us participate in the care of this patient.
[2016-09-13 17:51] LABS: Glucose,Whole Blood 176 mg/dL (75-99)
[2016-09-13 21:25] LABS: Glucose,Whole Blood 247 mg/dL (75-99)
[2016-09-13] MEDS: INSULIN DETEMIR 100 UNIT/ML 10 ML VIAL SQ SCH (21:49)
[2016-09-13] MEDS: ZIPRASIDONE 60 MG CAP PO SCH (21:50)
[2016-09-13] MEDS: LORazepam 1 MG TAB PO PRN (21:52)
[2016-09-13] MEDS: ATORVASTATIN 20 MG TAB PO SCH (22:53)
[2016-09-14 06:15] LABS: Glucose,Whole Blood 188 mg/dL (75-99)
--- NOTE | 2016-09-14 08:39 | P.PN ---
Progress Note - Text INTERVERAL HISTORY: Covering for Dr. Montelongo Patient was discussed at treatment team meeting, review of record, met with patient. Patient is known to me from his last admission here, as it the admission provider. Staff reports no problems on the unit. Patient was found in the activity room, playing cards, had to be called several times as he did not want to leave the card game, he was clearly having a good time smiling. Patient reports that this time it was not due to cocaine like the last time. States this is due to his mental illness, that he was diagnosed when he was young that he had emotional problems bipolarness and PTSD. This he states was all prior to him ever using drugs. He reports that he did not go to [facility] as he had planned at his last discharge. States he is now homeless and he hopes that he doesn't get into any difficulty before his next appointment with [facility] on September 28. He states he is suicidal and depressed. MENTAL STATUS EXAM: Morbidly obese male, good eye contact, speech normal volume rate and production. Coherent logical goal directed, no JANA no FOI no delusions. No no evidence that he is experiencing auditory hallucinations, he did not report auditory or visual hallucinations. Mood neutral affect full range, decreased intensity. Reports suicidal ideation. PLAN: The patient has been admitted to the mental health unit he is here voluntarily. We will continue to monitor his progress. He is taking Cymbalta 60 mg daily and Geodon 60 mg twice a day. Vistaril as needed for anxiety. Patient has an appointment with [facility] for October 08. .
[2016-09-14] MEDS: GABAPENTIN 400 MG CAP PO SCH ×3 (09:12→21:10)
[2016-09-14] MEDS: INSULIN LISPRO (humaLOG) 300 UNIT/3 ML VIAL SQ SCH ×4 (09:12→21:08)
[2016-09-14 09:13] VITALS: BMI 49.4
[2016-09-14] MEDS: ALLOPURINOL 300 MG TAB PO SCH (09:13)
[2016-09-14] MEDS: DULoxetine HCL 60 MG CAPSULE.DR PO SCH (09:13)
[2016-09-14] MEDS: metFORMIN 500 MG TAB PO SCH ×2 (09:13→21:11)
[2016-09-14] MEDS: ZIPRASIDONE 60 MG CAP PO SCH ×2 (09:13→21:10)
[2016-09-14] MEDS: LORazepam 1 MG TAB PO PRN ×2 (09:15→21:14)
[2016-09-14 12:42] LABS: Glucose,Whole Blood 197 mg/dL (75-99)
[2016-09-14 17:32] LABS: Glucose,Whole Blood 196 mg/dL (75-99)
[2016-09-14 20:31] LABS: Glucose,Whole Blood 207 mg/dL (75-99)
[2016-09-14] MEDS: INSULIN DETEMIR 100 UNIT/ML 10 ML VIAL SQ SCH (21:09)
[2016-09-14] MEDS: ATORVASTATIN 20 MG TAB PO SCH (21:11)
[2016-09-15 07:00] LABS: Glucose,Whole Blood 188 mg/dL (75-99)
[2016-09-15] MEDS: ZIPRASIDONE 60 MG CAP PO SCH ×2 (08:06→21:31)
[2016-09-15] MEDS: DULoxetine HCL 60 MG CAPSULE.DR PO SCH (08:06)
[2016-09-15] MEDS: metFORMIN 500 MG TAB PO SCH ×2 (08:06→21:31)
[2016-09-15] MEDS: ALLOPURINOL 300 MG TAB PO SCH (08:07)
[2016-09-15] MEDS: INSULIN LISPRO (humaLOG) 300 UNIT/3 ML VIAL SQ SCH ×4 (08:07→21:35)
[2016-09-15] MEDS: GABAPENTIN 400 MG CAP PO SCH ×3 (08:07→21:31)
[2016-09-15] MEDS: LORazepam 1 MG TAB PO PRN (08:10)
--- NOTE | 2016-09-15 09:46 | P.PN ---
Progress Note - Text Interval history: The patient is found in his room sleeping he follows me to an interview room. He reports he did speak with [facility] and has an admission date of September 28. He reports she's been attending groups but he did miss the goal setting group this morning. He has no questions pertaining to his medications. He reports being compliant with medications. He continues to have suicidal thoughts that are "strong". He endorses auditory hallucinations. He describes hearing his parents that her scolding him. He reports the hallucinations are there all day long and tend to be worse when others are around. He endorses some physical sensations when the hallucinations are present. Mental status exam: The patient is a morbidly obese male. He has impaired hygiene grooming. Eye contact is appropriate. Speech is mainly responsive to questions asked with some spontaneous speech. Speech is nonpressured it is fluent. He describes a depressed mood with ongoing suicidal thoughts. He endorses auditory hallucinations as described above. He describes having some racing thoughts however he does not appear hypomanic or manic. Insight and judgment limited. He demonstrates no psychomotor agitation he does have some psychomotor slowing. He ambulates without ataxia but does so slowly. Plan: The patient will continue on his current medications. He is encouraged to comply with groups [facility]. He does have placement arranged with [facility]. He is most concerned with racing thoughts and thoughts of suicide. We will continue to assess and treat. Vital signs reviewed.
[2016-09-15 12:37] LABS: Glucose,Whole Blood 204 mg/dL (75-99)
[2016-09-15 17:31] LABS: Glucose,Whole Blood 196 mg/dL (75-99)
[2016-09-15 20:01] LABS: Glucose,Whole Blood 209 mg/dL (75-99)
[2016-09-15] MEDS: INSULIN DETEMIR 100 UNIT/ML 10 ML VIAL SQ SCH (21:00)
[2016-09-15] MEDS: ATORVASTATIN 20 MG TAB PO SCH (21:30)
[2016-09-15] MEDS: hydrOXYzine PAMOATE 25 MG CAP PO PRN (21:33)
[2016-09-16 06:36] LABS: Glucose,Whole Blood 160 mg/dL (75-99)
[2016-09-16] MEDS: INSULIN LISPRO (humaLOG) 300 UNIT/3 ML VIAL SQ SCH ×4 (08:04→21:17)
--- NOTE | 2016-09-16 10:19 | P.PN ---
Progress Note - Text Interval history: The patient is found in the hallway he follows me to an interview room. He reports his mood is better than yesterday. He called [facility] to asked them questions about their program and he states that call reduced "70% of my concerns". He reports some continued suicidal thoughts but feels that they are much less severe. We discussed his reaction to the Ativan yesterday morning. We have discontinued the Ativan he is encouraged to use Vistaril if needed for anxiety. He has been more alert today he plans on attending groups. Mental status exam: The patient is alert hygiene and grooming are improved he is a morbidly obese male. He is dressed in his own clothing. Eye contact is appropriate speech is fluent and spontaneous nonpressured. He endorses an improvement of his mood he feels that the severity of his suicidal thoughts is decreased. He reports no auditory hallucinations today. He does not appear to be experiencing acute symptoms of psychosis. He demonstrates no verbal or physical aggressiveness. No observed abnormal involuntary movements. Insight and judgment beginning to improve. Affect is more appropriately expressive today. Plan: The patient's will continue on his current medication. We will continue to monitor for safety and encourage his participation in the milieu. We will consider a discharge early next week if the patient continues to demonstrate stability/clinical improvement.
[2016-09-16] MEDS: ZIPRASIDONE 60 MG CAP PO SCH ×2 (10:38→21:13)
[2016-09-16] MEDS: GABAPENTIN 400 MG CAP PO SCH ×3 (10:38→21:13)
[2016-09-16] MEDS: DULoxetine HCL 60 MG CAPSULE.DR PO SCH (10:38)
[2016-09-16] MEDS: metFORMIN 500 MG TAB PO SCH ×2 (10:38→21:13)
[2016-09-16] MEDS: ALLOPURINOL 300 MG TAB PO SCH (10:38)
[2016-09-16] MEDS: NON-FORMULARY DRUG (Canagliflozin [Invokana] 300 MG) PO SCH ×2 (10:59→11:08)
[2016-09-16 12:37] LABS: Glucose,Whole Blood 186 mg/dL (75-99)
[2016-09-16 17:44] LABS: Glucose,Whole Blood 182 mg/dL (75-99)
[2016-09-16 19:51] LABS: Glucose,Whole Blood 214 mg/dL (75-99)
[2016-09-16] MEDS: ATORVASTATIN 20 MG TAB PO SCH (21:13)
[2016-09-16] MEDS: hydrOXYzine PAMOATE 25 MG CAP PO PRN (21:14)
[2016-09-16] MEDS: INSULIN DETEMIR 100 UNIT/ML 10 ML VIAL SQ SCH (21:20)
[2016-09-17 06:21] LABS: Glucose,Whole Blood 183 mg/dL (75-99)
[2016-09-17 06:45] VITALS: RESP 16
[2016-09-17] MEDS: INSULIN LISPRO (humaLOG) 300 UNIT/3 ML VIAL SQ SCH ×4 (08:44→20:21)
[2016-09-17] MEDS: ALLOPURINOL 300 MG TAB PO SCH (08:46)
[2016-09-17] MEDS: ZIPRASIDONE 60 MG CAP PO SCH ×2 (08:46→20:20)
[2016-09-17] MEDS: metFORMIN 500 MG TAB PO SCH ×2 (08:46→20:20)
[2016-09-17] MEDS: DULoxetine HCL 60 MG CAPSULE.DR PO SCH (08:46)
[2016-09-17] MEDS: GABAPENTIN 400 MG CAP PO SCH ×3 (08:46→21:42)
[2016-09-17 12:29] LABS: Glucose,Whole Blood 217 mg/dL (75-99)
--- NOTE | 2016-09-17 15:59 | P.PN ---
Progress Note - Text Date of service: 09/17/2016 Chief complaint: "I feeling good" Subjective: The patient has been seen today as follow-up, chart reviewed, case discussed with the treatment team. The patient reports has good sleep last night and has average appetite. He reports his depression symptoms is much alleviated and denies any S/H ideation. He reports has high anxiety related to his discharge and expectations of aftercare management. Patient reports he has been scheduled to go to rehab treatment for STEFFEN on 09/28. The patient denies any manic symptoms. The patient denies any auditory or visual hallucinations. Also the patient denies any paranoid ideation. Review of other systems: Patient denies any physical symptoms besides what has been mentioned above. No breathing problems, no chest pain reported today. Objective: Vitals has been reviewed. Mental status examination; Appearance: The patient appears stated age, morbidly obese, adequately groomed. Gait/posture: Normal gait, Normal arm swinging: No abnormal movements. Attitude and behavior: engaged, cooperative, fair eye contact. Motor activity: Normal psychomotor activity Speech: Soft, low tone Mood: Anxious Affect: Constricted Thought form: goal-directed, linear, coherent. Thought content: Non-delusional, denies suicidal thoughts, denies homicidal thoughts, denies intentions or plans. Perception: Denies any auditory or visual hallucinations Attention: No impairment. Orientation: Patient patient was fully oriented to time place person and situation. Insight: Patient has limited insight about his psychiatric disorder. Judgment: Patient has limited judgment about his psychiatric treatment. Assessment: Major depressive disorder recurrent severe with psychosis Cocaine use disorder, Rule out history of Benzodiazepine use disorder Anxiety and specified Plan: Continue with inpatient psychiatric hospitalization for monitoring and continue treatment. Continue group therapy and other unit activities. Continue follow up with medical team to address physical problems including diabetes, hyperlipidemia, asthma Sugar level reviewed Continue psychiatric medications: Geodon twice a day for mood symptoms and Cymbalta for depression and anxiety symptoms Discharge planning is ongoing.
[2016-09-17 17:08] LABS: Glucose,Whole Blood 179 mg/dL (75-99)
[2016-09-17 20:03] LABS: Glucose,Whole Blood 230 mg/dL (75-99)
[2016-09-17] MEDS: ATORVASTATIN 20 MG TAB PO SCH (20:20)
[2016-09-17] MEDS: INSULIN DETEMIR 100 UNIT/ML 10 ML VIAL SQ SCH (20:22)
[2016-09-17] MEDS: hydrOXYzine PAMOATE 25 MG CAP PO PRN (20:24)
[2016-09-18 06:25] LABS: Glucose,Whole Blood 147 mg/dL (75-99)
[2016-09-18 06:40] VITALS: TEMP 97.5
[2016-09-18] MEDS: INSULIN LISPRO (humaLOG) 300 UNIT/3 ML VIAL SQ SCH ×4 (08:12→20:24)
[2016-09-18] MEDS: ALLOPURINOL 300 MG TAB PO SCH (08:15)
[2016-09-18] MEDS: ZIPRASIDONE 60 MG CAP PO SCH ×2 (08:15→20:57)
[2016-09-18] MEDS: DULoxetine HCL 60 MG CAPSULE.DR PO SCH (08:15)
[2016-09-18] MEDS: GABAPENTIN 400 MG CAP PO SCH ×3 (08:15→20:58)
[2016-09-18] MEDS: metFORMIN 500 MG TAB PO SCH ×2 (08:15→20:57)
[2016-09-18 12:43] LABS: Glucose,Whole Blood 196 mg/dL (75-99)
--- NOTE | 2016-09-18 15:12 | P.PN ---
Progress Note - Text Date of service: 09/18/2016 Chief complaint: "I feel anxious about discharge " Subjective: The patient has been seen today as follow-up, chart reviewed, case discussed with the treatment team. Patient slept about 6 hours last night. Patient has been going to groups and other unit activities. Patient reports no appetite problems. The patient addressed has been feeding increasingly anxious about discharge and especially about time between discharge till going to the rehab center. He expressed worry about craving and urges. Patient denies feeling depressed and he reported has been able to cope with his depression. He denies feeling hopeless or suicidal. Patient has been counseled and educated about cravings and coping skills with cravings. Patient has been educated about 12 steps meetings. The patient reports he would be discharged to stay with his friends till he would go to the rehab treatment and he stated that his friend doesn't use drugs and the environment is nontoxic. The patient denies any manic symptoms. The patient denies any auditory or visual hallucinations. Also the patient denies any paranoid ideation. The patient is compliant with his medications and denies any adverse reactions. Review of other systems: Patient denies any physical symptoms besides what has been mentioned above. No breathing problems, no chest pain reported today. Objective: Vitals has been reviewed. Mental status examination; Appearance: The patient appears stated age, morbidly obese, adequately groomed. Gait/posture: Normal gait, Normal arm swinging: No abnormal movements. Attitude and behavior: engaged, cooperative, fair eye contact. Motor activity: Normal psychomotor activity Speech: Soft, low tone Mood: Anxious Affect: Constricted Thought form: goal-directed, linear, coherent. Thought content: Non-delusional, denies suicidal thoughts, denies homicidal thoughts, denies intentions or plans. Perception: Denies any auditory or visual hallucinations Attention: No impairment. Orientation: Patient patient was fully oriented to time place person and situation. Insight: Patient has fair insight about his psychiatric disorder. Judgment: Patient has fair judgment about his psychiatric treatment. Assessment: Major depressive disorder recurrent severe with psychosis Cocaine use disorder, Rule out history of Benzodiazepine use disorder Anxiety and specified Plan: Continue with inpatient psychiatric hospitalization for monitoring and continue treatment. Continue group therapy and other unit activities. Continue follow up with medical team to address physical problems including diabetes, hyperlipidemia, asthma Sugar level reviewed Continue psychiatric medications: Geodon twice a day for mood symptoms and Cymbalta for depression and anxiety symptoms Patient has been educated and counseled about recovery and coping skills with cravings. Discharge planning is ongoing.
--- NOTE | 2016-09-18 15:57 | P.PN ---
Subjective Principal diagnosis: This 45 or gentleman who was admitted for psychiatric evaluation as elevated blood sugars. Patient is taking in and levemir 20 at home. no chest pain palpitations or shortness of breath. Objective - Vital Signs Vital signs: Vital Signs Temp 97.5 F L 09/18/16 06:39 Pulse 54 L 09/18/16 06:39 Resp 16 09/18/16 06:39 BP 114/74 09/18/16 06:39 Pulse Ox 95 09/12/16 20:09 Intake & Output 09/17/16 09/18/16 09/18/16 18:59 06:59 18:59 Weight 165.5 kg - Exam On exam, alert and oriented x3. HEENT: Conjunctivae normal. eyes normal. NECK: No JVD. No thyroid enlargement. No LNs CARDIOVASCULAR: S1, S2 muffled. No murmur RESPIRATION: Breath sounds diminished in the bases. No rhonchi or crackles. No bronchial breathing. ABDOMEN: Soft, nontender . No guarding. no masses palpable. No ascites, No hepatosplenomegaly.Bowel sounds heard. LEGS: No edema. no swelling NERVOUS SYSTEM: Cranial N 2-12 grossly normal. Moves all 4 limbs. No focal deficits. No sensory deficit. No signs of cerebellar dysfucntion. Skin: no ulcer no rash Joints: No active swelling. No inflammation. Lymphatic system. No LN neck axilla or groin. - Labs CBC & Chem 7: 09/13/16 09:17 09/13/16 09:17 Labs: Abnormal Lab Results - Last 24 Hours (Table) 09/17/16 09/17/16 09/18/16 Range/Units 17:07 20:02 06:24 POC Glucose (mg/dL) 179 H 230 H 147 H (75-99) mg/dL 09/18/16 Range/Units 12:25 POC Glucose (mg/dL) 196 H (75-99) mg/dL Assessment and Plan Plan: Assessment 1. Diabetes mellitus type 2 uncontrolled. 2. Hypertension 3. Hyperlipidemia 4. Psychosis for evaluation Plan In this 45-year-old gentleman I would recommend to increase Levemir to 30 units at night. Monitor blood sugars closely. At the time of discharge the Levemir dose could be reduced to 20 units and home dose of invokana the may be added. dietary recommendations.
[2016-09-18 17:31] LABS: Glucose,Whole Blood 199 mg/dL (75-99)
[2016-09-18 20:10] LABS: Glucose,Whole Blood 245 mg/dL (75-99)
[2016-09-18] MEDS: ATORVASTATIN 20 MG TAB PO SCH (20:57)
[2016-09-18] MEDS ORDERED: INSULIN DETEMIR 100 UNIT/ML 10 ML VIAL SQ SCH (21:00)
[2016-09-18] MEDS: hydrOXYzine PAMOATE 25 MG CAP PO PRN (21:01)
[2016-09-19 06:38] LABS: Glucose,Whole Blood 146 mg/dL (75-99)
[2016-09-19 06:55] VITALS: BP 130/81; PULSE 70
[2016-09-19] MEDS: INSULIN LISPRO (humaLOG) 300 UNIT/3 ML VIAL SQ SCH ×2 (08:03→13:03)
[2016-09-19] MEDS: DULoxetine HCL 60 MG CAPSULE.DR PO SCH (09:12)
[2016-09-19] MEDS: ALLOPURINOL 300 MG TAB PO SCH (09:12)
[2016-09-19] MEDS: ZIPRASIDONE 60 MG CAP PO SCH (09:12)
[2016-09-19] MEDS: GABAPENTIN 400 MG CAP PO SCH (09:12)
[2016-09-19] MEDS: metFORMIN 500 MG TAB PO SCH (09:12)
--- NOTE | 2016-09-19 09:55 | P.DS ---
Providers Date of admission: 09/12/16 19:19 Expected date of discharge: 09/19/16 Attending physician: Keaton Montelongo Consults: 09/12/16 19:20 Consult Physician Routine Consulting Provider: Jose Leon Consult Reason/Comments: follow up H & P Do you want consulting provider notified?: Yes Primary care physician: Rachana Harper - Discharge Diagnosis(es) (1) Major depressive disorder, recurrent, severe with psychotic features Current Visit: Yes Status: Acute Priority: High (2) Cocaine use disorder, mild, abuse Current Visit: Yes Status: Acute Priority: High Hospital Course: Brief summary admission note: This patient is a 45-year-old single male who is readmitted to the mental health unit through the emergency room for suicidal ideation. The patient had presented back to the mental health unit for suicidal thoughts. After discharge he had not complied with the antidepressant or antipsychotic medication. Additionally he had relapsed with cocaine use. He had arranged previously to go to [place] but he did not attend. He presented to us again feeling hopeless and overwhelmed. For full details please refer to my psychiatric evaluation dated 09/13/2016. Summary of hospital course: The patient was admitted to the mental health unit voluntarily. We reviewed his presenting symptoms and medication options. We decided to restart the Cymbalta 60 mg daily Geodon 60 mg twice daily Vistaril 25 mg every 8 hours as needed. The patient attended groups. He demonstrated no agitated behavior. During the course of the hospitalization he reported a progressive improvement of symptoms. Again he was agreeable to arranging placement at [place]. On his own he did call them again to ask questions that were mainly logistical in nature but that conversation did reduce anxiety about going there. He had reported that he will be staying with his friend Brandi upon discharge. The patient was seen by the internal medicine physician during the course of his stay for routine history and physical exam. Mental status exam: The patient is a morbidly obese male. Hygiene adequate grooming fair. He is dressed in his own clothing. Eye contact is appropriate. Speech is fluent and spontaneous nonpressured. He indicates his mood is better he feels more optimistic. Spontaneously he describes future oriented thinking. He reports no suicidal ideation intent or plan. There has never been any report of homicidal ideation. He reports that his auditory hallucinations have resolved and are no longer present. No specific delusions endorsed. He demonstrates no verbal or physical aggressiveness. No abnormal involuntary movements observed. Insight and judgment improved. He remains oriented. Impressions 1. Major depressive disorder recurrent severe with reported psychosis, cocaine use disorder, rule out history of benzodiazepine use disorder, anxiety unspecified 2. Cluster B traits 3. Diabetes with subsequent neuropathy Plan: The patient will be discharged today from the mental health unit. He plans on residing with his friend Brandi. He will continue on Cymbalta 60 mg daily Geodon 60 mg twice daily Vistaril 25 mg up to every 12 hours as needed for anxiety. Social work will confirm his placement at [place]. The patient is not seen to be at imminent risk he is appropriate for discharge from the mental health unit to outpatient care. He is aware he may return to the hospital if any acute safety concerns. We have discussed during the hospitalization risks of continued substance use in terms of safety. Patient Condition at Discharge: Stable Plan - Discharge Summary New Discharge Prescriptions: Continue Allopurinol [Zyloprim] 300 mg PO DAILY Simvastatin [Zocor] 40 mg PO HS Albuterol Sulfate [Proair Hfa] 2 puff INHALATION RT-Q6H PRN PRN Reason: Dyspnea Insulin Detemir [Levemir Flextouch] 20 units SQ HS Insulin Aspart [NovoLOG Flexpen] See Protocol SQ TID-W/MEALS metFORMIN HCL ER [Glucophage Xr] 500 mg PO BID Canagliflozin [Invokana] 300 mg PO DAILY Gabapentin 800 mg PO TID DULoxetine HCL [Cymbalta] 60 mg PO DAILY #30 cap hydrOXYzine PAMOATE [Vistaril] 25 mg PO BID PRN #30 cap PRN Reason: Anxiety Ziprasidone [Geodon] 60 mg PO BID #60 Discharge Medication List Allopurinol [Zyloprim] 300 mg PO DAILY 07/23/16 [History] Albuterol Sulfate [Proair Hfa] 2 puff INHALATION RT-Q6H PRN 09/12/16 [History] Canagliflozin [Invokana] 300 mg PO DAILY 09/12/16 [History] Gabapentin 800 mg PO TID 09/12/16 [History] Insulin Aspart [NovoLOG Flexpen] See Protocol SQ TID-W/MEALS 09/12/16 [History] Insulin Detemir [Levemir Flextouch] 20 units SQ HS 09/12/16 [History] Simvastatin [Zocor] 40 mg PO HS 09/12/16 [History] metFORMIN HCL ER [Glucophage Xr] 500 mg PO BID 09/12/16 [History] DULoxetine HCL [Cymbalta] 60 mg PO DAILY #30 cap 09/19/16 [Rx] Ziprasidone [Geodon] 60 mg PO BID #60 09/19/16 [Rx] hydrOXYzine PAMOATE [Vistaril] 25 mg PO BID PRN #30 cap 09/19/16 [Rx] Follow up Appointment(s)/Referral(s): [facility] [Outside] - 09/28/16 11:15 am (Intake 09/28/16 11:15 am) Meredith Reich MD [Primary Care Provider] - 1-2 days Activity/Diet/Wound Care/Special Instructions: Per Dr. Magana: Upon discharge pt. is to resume taking his home med. Invokana 300 mg po daily and decrease the Levemir to Levemir 20 units SQ at bedtime.
[2016-09-19 13:03] LABS: Glucose,Whole Blood 210 mg/dL (75-99)
== END 2016-09-19 13:41 | disposition home or self-care (01) | DRG 885 ==
LOC: EC 17:27 → 3MHU 19:19
PROVIDERS: ADMIT Psychiatry & Neurology Psychiatry; ATTEND Psychiatry & Neurology Psychiatry
DX: F33.3 Major depressive disorder, recurrent, severe with psychotic symptoms (principal); E11.40 Type 2 diabetes mellitus with diabetic neuropathy, unspecified; R45.851 Suicidal ideations; Z68.43 Body mass index [BMI] 50.0-59.9, adult; E66.01 Morbid (severe) obesity due to excess calories; E11.65 Type 2 diabetes mellitus with hyperglycemia; E78.5 Hyperlipidemia, unspecified; M10.9 Gout, unspecified; I10 Essential (primary) hypertension; F43.10 Post-traumatic stress disorder, unspecified; F14.10 Cocaine abuse, uncomplicated; Z79.4 Long term (current) use of insulin; Z79.84 Long term (current) use of oral hypoglycemic drugs; Z79.899 Other long term (current) drug therapy; Z59.0 Homelessness; Z91.5 Personal history of self-harm; Z81.8 Family history of other mental and behavioral disorders
CPT/HCPCS: 80053; 80306; 82075; 83036; 84443; 85025; 94640; 99285

== ENCOUNTER 2017-05-23 14:57 | Inpatient (IN) | payer MEDICARE, MEDICAID ==
[2017-05-23 15:54] LABS: Amphetamine Screen,Urine Not Detected (NotDetected); Barbiturate Screen,Urine Not Detected (NotDetected); Benzodiazepines Screen,Urine Not Detected (NotDetected); Cocaine Screen,Urine Detected (NotDetected); Methadone Screen, Urine Not Detected (NotDetected); Opiate Screen,Urine Not Detected (NotDetected); Oxycodone Screen, Urine Not Detected (NotDetected); Phencyclidine Screen,Urine Not Detected (NotDetected); Tricyclic Antidepressant,Urine Not Detected (NotDetected); Urn Cannabinoid Scrn Detected (NotDetected)
[2017-05-23 16:45] LABS: Glucose,Whole Blood 307 mg/dL (75-99)
[2017-05-23] MEDS ORDERED: MAGNESIUM HYDROXIDE 2,400 MG/10 ML CUP PO PRN (17:33)
[2017-05-23] MEDS ORDERED: MAG HYDROX/AL HYDROX/SIMETH 30 ML CUP PO PRN (17:33)
[2017-05-23] MEDS ORDERED: ACETAMINOPHEN TAB 325 MG TAB PO PRN (17:33)
[2017-05-23] MEDS ORDERED: ZIPRASIDONE 20 MG VIAL IM PRN (17:33)
--- NOTE | 2017-05-23 18:42 | ED ---
Anxiety HPI - General Chief Complaint: Psychiatric Symptoms Stated Complaint: suicidal Time Seen by Provider: 05/23/17 15:27 Source: patient Mode of arrival: ambulatory - History of Present Illness Initial Comments: 89 years old male history of depression and anxiety presents with a suicidal ideation he said he attempted to kill himself with some cocaine today he was hoping that history. Has heart rate and he has been quite noncompliant with this medication he stopped taken for the last 4 months he hasn't taken his blood pressure medication needs that he take his diabetes medication he smoked cocaine today and attempt to kill himself he denies any other street drugs he denies any other drug overdose he denies any alcohol. He denies any headaches no chest pain or shortness of breath no abdominal pain no frequency urgency dysuria - Related Data Home Medications: Home Medications Medication Instructions Recorded Confirmed Gabapentin 800 mg PO TID 09/12/16 05/23/17 Citalopram Hydrobromide [CeleXA] 40 mg PO DAILY 05/23/17 05/23/17 HYDROcodone/APAP 10-325MG [Fonda 1 tab PO TID PRN 05/23/17 05/23/17 10-325] buPROPion HCL [Wellbutrin SR] 150 mg PO BID 05/23/17 05/23/17 cloNIDine HCL [Catapres] 0.1 mg PO BID 05/23/17 05/23/17 Allergies/Adverse Reactions: Allergies Allergy/AdvReac Type Severity Reaction Status Date / Time ibuprofen [From Motrin] Allergy Rash/Hives Verified 05/23/17 15:44 Review of Systems ROS Statement: Those systems with pertinent positive or pertinent negative responses have been documented in the HPI. ROS Other: All systems not noted in ROS Statement are negative. Past Medical History Past Medical History: Diabetes Mellitus, Hyperlipidemia, Hypertension Additional Past Medical History / Comment(s): neuropathy, gout, depression. History of Any Multi-Drug Resistant Organisms: None Reported Additional Past Surgical History / Comment(s): eyes, left foot surgery. Past Anesthesia/Blood Transfusion Reactions: No Reported Reaction Past Psychological History: Anxiety, Bipolar, Depression, Schizophrenia Smoking Status: Never smoker Past Alcohol Use History: None Reported Past Drug Use History: Cocaine, Marijuana - Past Family History Mother Family Medical History: Cancer, Diabetes Mellitus Father Family Medical History: Myocardial Infarction ([place]) Additional Family Medical History / Comment(s): stroke General Exam - General Exam Comments Initial Comments: General: The patient is awake and alert, in no distress, and does not appear acutely ill. His BMI is 50 Skin: Skin is warm and dry and no rashes or lesions are noted. Eye: Pupils are equal, round and reactive to light, extra-ocular movements are intact; there is normal conjunctiva bilaterally. Ears, nose, mouth and throat: There are moist mucous membranes and no oral lesions. Neck: The neck is supple, there is no tenderness or JVD. Cardiovascular: There is a regular rate and rhythm. No murmur, rub or gallop is appreciated. Respiratory: To auscultation bilateral, no wheezing no rhonchi no distress respiratory spear noticed Gastrointestinal: Soft, non-distended, non-tender abdomen without masses or organomegaly noted. There is no rebound or guarding present. Bowel sounds are unremarkable. Back: There is no tenderness to palpation in the midline. There is no obvious deformity. Musculoskeletal: Normal ROM, no tenderness, There is no pedal edema. There is no calf tenderness or swelling. No cords were appreciated. Neurological: CN II-XII intact, Cranial nerves III through XII are intact. There are no obvious motor or sensory deficits. Coordination appears grossly intact. Speech is normal. Psychiatric: He admits to suicidal ideation he said he attempted suicide today by smoking cocaine Limitations: no limitations Course Vital Signs 05/23/17 15:00 Temperature 98 F Pulse Rate 100 Respiratory 20 Rate Blood Pressure 191/108 O2 Sat by Pulse 99 Oximetry He is evaluated by psychiatry department and they were in a quite and admit him for inpatient evaluation and management Medical Decision Making - Lab Data Lab Results 05/23/17 05/23/17 Range/Units 15:15 16:42 POC Glucose (mg/dL) 307 H (75-99) mg/dL POC Glu Deputy Editor In Chief ID Alessandra Bourgeois Urine Opiates Screen Not Detected (NotDetected) Ur Oxycodone Screen Not Detected (NotDetected) Urine Methadone Screen Not Detected (NotDetected) Ur Propoxyphene Screen Not Detected (NotDetected) Ur Barbiturates Screen Not Detected (NotDetected) U Tricyclic Antidepress Not Detected (NotDetected) Ur Phencyclidine Scrn Not Detected (NotDetected) Ur Amphetamines Screen Not Detected (NotDetected) U Methamphetamines Scrn Not Detected (NotDetected) U Benzodiazepines Scrn Not Detected (NotDetected) Urine Cocaine Screen Detected H (NotDetected) U Marijuana (THC) Screen Detected H (NotDetected) Disposition Clinical Impression: Depression, Suicidal ideation Disposition: ADMITTED IP TO THIS HOSP
[2017-05-23 20:36] LABS: Glucose,Whole Blood 286 mg/dL (75-99)
[2017-05-23] MEDS: ATORVASTATIN 20 MG TAB PO SCH (20:46)
[2017-05-23] MEDS: GABAPENTIN 400 MG CAP PO SCH (20:46)
[2017-05-23] MEDS: LORazepam 1 MG TAB PO PRN (20:49)
[2017-05-23] MEDS: INSULIN ASPART 100 UNIT/ML 1 ML 10 ML VIAL SQ SCH (20:51)
[2017-05-24 06:42] LABS: Glucose,Whole Blood 230 mg/dL (75-99)
[2017-05-24] MEDS ORDERED: INSULIN DETEMIR 100 UNIT/ML 10 ML VIAL SQ STA (07:39)
[2017-05-24] MEDS: INSULIN ASPART 100 UNIT/ML 1 ML 10 ML VIAL SQ SCH ×4 (08:05→20:32)
[2017-05-24 08:29] LABS: Basophils # (A) 0.1 k/uL (0-0.2); Basophils % (A) 1 %; Eosinophils # (A) 0.4 k/uL (0-0.7); Eosinophils % (A) 4 %; HCT 54.8 % (39.0-53.0); HGB 18.1 gm/dL (13.0-17.5); Lymphocytes # (A) 4.1 k/uL (1.0-4.8); Lymphocytes % (A) 40 %; MCH 29.7 pg (25.0-35.0); MCV 90.1 fL (80.0-100.0); Mean Platelet Volume 9.1; Monocytes # (A) 0.5 k/uL (0-1.0); Monocytes % (A) 5 %; Neutrophils % (A) 49 %; Platelet Count 243 k/uL (150-450); RBC 6.08 m/uL (4.30-5.90); RDW 13.3 % (11.5-15.5); WBC 10.3 k/uL (3.8-10.6)
[2017-05-24 08:53] LABS: ALT 39 U/L (21-72); AST 35 U/L (17-59); Albumin 3.5 g/dL (3.5-5.0); Alkaline Phosphatase 99 U/L (38-126); Anion Gap 11 mmol/L; Blood Urea Nitrogen 14 mg/dL (9-20); Calcium 9.2 mg/dL (8.4-10.2); Carbon Dioxide 27 mmol/L (22-30); Chloride 102 mmol/L (98-107); Glucose 275 mg/dL (74-99); Potassium 4.1 mmol/L (3.5-5.1); Sodium 140 mmol/L (137-145); Total Bilirubin 1.2 mg/dL (0.2-1.3); Total Protein 6.7 g/dL (6.3-8.2)
[2017-05-24] MEDS: GABAPENTIN 400 MG CAP PO SCH ×3 (09:14→20:56)
[2017-05-24] MEDS: ALLOPURINOL 300 MG TAB PO SCH (09:14)
[2017-05-24] MEDS: OXcarbazepine 300 MG TAB PO SCH ×2 (09:15→20:56)
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
[2017-05-24] MEDS: LORazepam 1 MG TAB PO PRN (11:56)
[2017-05-24] MEDS: ALBUTEROL INHALER 60 PUFF/8 GM INHALER INHALATION PRN (12:22)
[2017-05-24 12:28] LABS: Glucose,Whole Blood 291 mg/dL (75-99)
[2017-05-24] MEDS ORDERED: INSULIN ASPART 100 UNIT/ML 1 ML 10 ML VIAL SQ ONE (13:30)
[2017-05-24] MEDS ORDERED: HYDROcodone/APAP 10-325MG 1 EACH TAB PO PRN (13:45)
[2017-05-24] MEDS: metFORMIN 500 MG TAB PO SCH ×2 (14:14→20:56)
--- NOTE | 2017-05-24 15:53 | P.CONS ---
History of Present Illness - Reason for Consult Diabetes mellitus, sleep apnea, severe osteoarthritis, obesity - History of Present Illness Patient is admitted seconded floor for suicidal ideations presently is comparing of pain in bilateral knees. Patient follows up with Dr. Meade pain management services and does use [place] 10 mg regular basis which was reordered. Patient denied any fever, chills, nausea, vomiting patient blood sugars are high as he was not resumed on his diabetic medications systemic medications were resumed blood sugar checks 3 times a day and titration depending on the blood sugars. Review of Systems REVIEW OF SYSTEMS: CONSTITUTIONAL: No fever, no malaise, no fatigue. HEENT: No recent visual problems or hearing problems. Denied any sore throat. CARDIOVASCULAR: No chest pain, orthopnea, PND, no palpitations, no syncope. PULMONARY: No shortness of breath, no cough, no hemoptysis. GASTROINTESTINAL: No diarrhea, no nausea, no vomiting, no abdominal pain. Normoactive bowel sounds. NEUROLOGICAL: No headaches, no weakness, no numbness. HEMATOLOGICAL: Denies any bleeding or petechiae. GENITOURINARY: Denies any burning micturition, frequency, or urgency. MUSCULOSKELETAL/RHEUMATOLOGICAL: Denies any joint pain, swelling, or any muscle pain. ENDOCRINE: Denies any polyuria or polydipsia. The rest of the 14-point review of systems is negative. Past Medical History Past Medical History: Diabetes Mellitus, Hyperlipidemia, Hypertension Additional Past Medical History / Comment(s): pt stated on his own stopped hi meds 4 months ago and has'nt been checking bs either.neuropathy,arthritis gout, depression.in past broke lt foot(sx ), myron carpal tunnel History of Any Multi-Drug Resistant Organisms: None Reported Additional Past Surgical History / Comment(s): lasik eye sx ,left foot surgery. to reprair break-"has 2 plates and 16 screws" Past Anesthesia/Blood Transfusion Reactions: No Reported Reaction Past Psychological History: Anxiety, Bipolar, Depression, Schizophrenia Smoking Status: Never smoker Past Alcohol Use History: None Reported Past Drug Use History: Cocaine, Marijuana Additional Drug Use History / Comment(s): crack cocaine - Past Family History Mother Family Medical History: Cancer, Diabetes Mellitus Father Family Medical History: Myocardial Infarction (ID) Additional Family Medical History / Comment(s): stroke Medications and Allergies Home Medications Medication Instructions Recorded Confirmed Type Gabapentin 800 mg PO TID 09/12/16 05/23/17 History Allopurinol [Zyloprim] 300 mg PO DAILY 05/23/17 05/23/17 History Canagliflozin [Invokana] 300 mg PO DAILY 05/23/17 05/23/17 History Insulin Detemir [Levemir Flextouch] 35 units SQ HS 05/23/17 05/24/17 History Simvastatin [Zocor] 40 mg PO HS 05/23/17 05/23/17 History metFORMIN HCL ER [Glucophage Xr] 500 mg PO BID 05/23/17 05/23/17 History Albuterol Sulfate [Proair Hfa] 1 - 2 puff INHALATION RT-Q6H PRN 05/24/17 History Glimepiride [Amaryl] 2 mg PO AC-BID 05/24/17 05/24/17 History Insulin Aspart [NovoLOG See Protocol SQ AC-TID 05/24/17 05/24/17 History (formulary)] Allergies Allergy/AdvReac Type Severity Reaction Status Date / Time ibuprofen [From Motrin] Allergy Rash/Hives Verified 05/23/17 15:44 Physical Exam Vitals: Vital Signs Temp Pulse Resp BP 05/24/17 13:44 94 136/97 05/24/17 06:54 97.5 F L 56 L 18 103/54 05/23/17 20:50 107 H 16 135/95 05/23/17 17:33 99.0 F 86 18 146/82 PHYSICAL EXAMINATION: GENERAL: The patient is alert and oriented x3, not in any acute distress. Well developed, well nourished. Morbidly obese HEENT: Pupils are round and equally reacting to light. EOMI. No scleral icterus. No conjunctival pallor. Normocephalic, atraumatic. No pharyngeal erythema. No thyromegaly. CARDIOVASCULAR: S1 and S2 present. No murmurs, rubs, or gallops. PULMONARY: Chest is clear to auscultation, no wheezing or crackles. ABDOMEN: Soft, nontender, nondistended, normoactive bowel sounds. No palpable organomegaly. MUSCULOSKELETAL: No joint swelling or deformity. EXTREMITIES: No cyanosis, clubbing, or pedal edema. NEUROLOGICAL: Gross neurological examination did not reveal any focal deficits. SKIN: No rashes. Results CBC & Chem 7: 05/24/17 08:12 05/24/17 08:12 Labs: Abnormal Lab Results - Last 24 Hours (Table) 05/23/17 05/23/17 05/23/17 Range/Units 15:15 16:42 20:24 RBC (4.30-5.90) m/uL Hgb (13.0-17.5) gm/dL Hct (39.0-53.0) % Glucose (74-99) mg/dL POC Glucose (mg/dL) 307 H 286 H (75-99) mg/dL Urine Cocaine Screen Detected H (NotDetected) U Marijuana (THC) Screen Detected H (NotDetected) 05/24/17 05/24/17 05/24/17 Range/Units 06:34 08:12 08:12 RBC 6.08 H (4.30-5.90) m/uL Hgb 18.1 H (13.0-17.5) gm/dL Hct 54.8 H (39.0-53.0) % Glucose 275 H (74-99) mg/dL POC Glucose (mg/dL) 230 H (75-99) mg/dL Urine Cocaine Screen (NotDetected) U Marijuana (THC) Screen (NotDetected) 05/24/17 Range/Units 12:03 RBC (4.30-5.90) m/uL Hgb (13.0-17.5) gm/dL Hct (39.0-53.0) % Glucose (74-99) mg/dL POC Glucose (mg/dL) 291 H (75-99) mg/dL Urine Cocaine Screen (NotDetected) U Marijuana (THC) Screen (NotDetected) Assessment and Plan Plan: -Elevated blood sugars: Patient will be restarted back on his diabetic medications will monitor blood sugars titration depending on his blood sugars while he is in the hospital. -Morbid obesity sleep apnea and possible obesity hypoventilation syndrome patient doesn't have CPAP machine patient can be on oxygen at nighttime need to be evaluated for CPAP again -Elevated hematocrit secondary to obstructive sleep apnea and possible CO2 retention -Hypertension - hyperlipidemia: Patient will be resumed and continued on home medications -Depression and suicidal ideation: Management as per primary service , Polysubstance abuse
[2017-05-24 16:16] LABS: Glucose,Whole Blood 310 mg/dL (75-99)
[2017-05-24 16:41] LABS: Appearance,Urine Cloudy (Clear); Bacteria,Urine Rare /hpf; Bilirubin,Urine Negative (Negative); Blood,Urine Negative (Negative); Color,Urine Light Yellow; Glucose,Urine (UA) 4+ (Negative); Ketones,Urine Negative (Negative); Leukocyte Esterase,Urine Large (Negative); Mucus,Urine Rare /hpf; Nitrite,Urine Negative (Negative); PH, Urine 5.5 (5.0-8.0); Protein,Urine Negative (Negative); RBC,Urine 6 /hpf (0-5); Specific Gravity,Urine 1.015 (1.001-1.035); Squamous Epithelial Cell,Urine 3 /hpf (0-4); Urobilinogen,Urine <2.0 mg/dL (<2.0); WBC,Urine 25 /hpf (0-5)
[2017-05-24 17:34] LABS: Glucose,Whole Blood 257 mg/dL (75-99)
[2017-05-24] MEDS: GLIMEPIRIDE 2 MG TAB PO SCH (17:50)
[2017-05-24] MEDS: INSULIN DETEMIR 100 UNIT/ML 10 ML VIAL SQ SCH (20:32)
[2017-05-24 20:40] LABS: Glucose,Whole Blood 236 mg/dL (75-99)
[2017-05-24 20:47] LABS: Hemoglobin A1C 10.8 % (4.0-6.0)
[2017-05-24] MEDS: ATORVASTATIN 20 MG TAB PO SCH (20:56)
[2017-05-24] MEDS: QUEtiapine 100 MG TAB PO SCH (20:56)
[2017-05-25 06:41] LABS: Glucose,Whole Blood 207 mg/dL (75-99)
[2017-05-25] MEDS: INSULIN ASPART 100 UNIT/ML 1 ML 10 ML VIAL SQ SCH ×4 (08:04→20:35)
[2017-05-25] MEDS: metFORMIN 500 MG TAB PO SCH ×2 (08:40→20:36)
[2017-05-25] MEDS: OXcarbazepine 300 MG TAB PO SCH ×2 (08:40→20:36)
[2017-05-25] MEDS: ALLOPURINOL 300 MG TAB PO SCH (08:40)
[2017-05-25] MEDS: GLIMEPIRIDE 2 MG TAB PO SCH ×2 (08:40→18:15)
[2017-05-25] MEDS: GABAPENTIN 400 MG CAP PO SCH ×3 (08:40→20:37)
[2017-05-25] MEDS: LORazepam 1 MG TAB PO PRN (08:42)
--- NOTE | 2017-05-25 12:05 | P.PN ---
Progress Note - Text Progress Note Date: 05/25/17 Patient has been on one-to-one supervision since last evening. He insists that he will not do anything to hurt himself even though he wishes he is . He contracted for safety and agreed to report to the staff if he cannot control himself with suicide thoughts. He is quite sleepy this morning. He insists that he has been taking Neurontin 800 mg 3 times a day at home. The only change in his medication is addition of Trileptal 300 mg twice a day and Seroquel 100 mg at bedtime. He was counseled about discontinuing Trileptal since he is already on Neurontin and Seroquel for mood stabilization. He got upset and said Neurontin is only for his legs and counseling that it is a mood stabilizer did not help at all. Patient apparently received a dose of narcotic yesterday afternoon after he had a physical examination. The nurse had called me and I asked her to discontinue narcotics since patient feels depressed and suicidal, drug screening was negative for opiates etc. This is an obese ambulatory white male with fair hygiene. He is very sleepy and slow in moving around today. His speech is fairly spontaneous short and goal directed. Mood is irritable. Affect is rather increased in intensity. He denies hallucinations and delusional thinking. He continues to report of suicide thoughts but he contracted for safety, said he will not do anything to hurt himself while in the hospital and reported to the staff if he cannot control those thoughts. He is oriented with adequate memory concentration etc. Plan: Discontinue one-to-one supervision, continue suicide watch, continue Seroquel Trileptal groups and other therapies along with medications for physical problems.
[2017-05-25 13:06] LABS: Glucose,Whole Blood 220 mg/dL (75-99)
[2017-05-25] MEDS ORDERED: DIPHENOX-ATROP 2.5-0.025 MG 1 EACH TAB PO PRN (16:46)
[2017-05-25] MEDS: cloNIDine HCL 0.1 MG TAB PO SCH ×2 (18:15→20:36)
[2017-05-25] MEDS: ATORVASTATIN 20 MG TAB PO SCH (20:35)
[2017-05-25] MEDS: INSULIN DETEMIR 100 UNIT/ML 10 ML VIAL SQ SCH (20:35)
[2017-05-25] MEDS: QUEtiapine 100 MG TAB PO SCH (20:36)
[2017-05-25] MEDS ORDERED: ZIPRASIDONE 20 MG CAP PO STA (22:18)
[2017-05-26] MEDS: INSULIN ASPART 100 UNIT/ML 1 ML 10 ML VIAL SQ SCH ×4 (08:28→21:21)
[2017-05-26] MEDS: metFORMIN 500 MG TAB PO SCH ×3 (08:29→21:28)
[2017-05-26] MEDS: GLIMEPIRIDE 2 MG TAB PO SCH ×3 (08:29→17:50)
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
[2017-05-26] MEDS: ALLOPURINOL 300 MG TAB PO SCH (09:00)
[2017-05-26] MEDS: OXcarbazepine 300 MG TAB PO SCH ×2 (09:01→22:08)
[2017-05-26] MEDS: cloNIDine HCL 0.1 MG TAB PO SCH ×3 (09:04→21:28)
[2017-05-26] MEDS: GABAPENTIN 400 MG CAP PO SCH ×3 (09:04→21:28)
[2017-05-26] MEDS: NAPROXEN 250 MG TAB PO SCH ×2 (09:05→21:28)
[2017-05-26] MEDS: LORazepam 1 MG TAB PO PRN ×2 (09:05→17:51)
[2017-05-26] MEDS: ZIPRASIDONE 20 MG CAP PO SCH ×2 (09:05→21:28)
--- NOTE | 2017-05-26 09:17 | XR ---
EXAMINATION TYPE: XR elbow limited LT DATE OF EXAM: 05/26/2017 COMPARISON: NONE HISTORY: Elbow was stepped on, pain TECHNIQUE: Two-view left elbow FINDINGS: Radius aligns normally with the humerus. Anterior fat pad is normal. No elevation of supervisor lead burning ior fat pad is evident. No acute fractures are evident. Soft tissues appear unremarkable. IMPRESSION: 1. Normal 2 view left elbow
[2017-05-26 12:40] LABS: Glucose,Whole Blood 289 mg/dL (75-99)
[2017-05-26 18:06] LABS: Glucose,Whole Blood 214 mg/dL (75-99)
[2017-05-26 21:21] LABS: Glucose,Whole Blood 286 mg/dL (75-99)
[2017-05-26] MEDS: INSULIN DETEMIR 100 UNIT/ML 10 ML VIAL SQ SCH (21:23)
[2017-05-26] MEDS: ATORVASTATIN 20 MG TAB PO SCH (21:28)
[2017-05-27 06:11] LABS: Glucose,Whole Blood 206 mg/dL (75-99)
[2017-05-27] MEDS: GLIMEPIRIDE 2 MG TAB PO SCH ×2 (08:09→17:28)
[2017-05-27] MEDS: cloNIDine HCL 0.1 MG TAB PO SCH ×3 (08:09→20:40)
[2017-05-27] MEDS: metFORMIN 500 MG TAB PO SCH ×2 (08:09→20:39)
[2017-05-27] MEDS: ALLOPURINOL 300 MG TAB PO SCH (08:09)
[2017-05-27] MEDS: GABAPENTIN 400 MG CAP PO SCH ×3 (08:09→20:39)
[2017-05-27] MEDS: OXcarbazepine 300 MG TAB PO SCH ×2 (08:10→20:39)
[2017-05-27] MEDS: NAPROXEN 250 MG TAB PO SCH ×2 (08:10→20:38)
[2017-05-27] MEDS: ZIPRASIDONE 20 MG CAP PO SCH ×2 (08:10→20:40)
[2017-05-27] MEDS: INSULIN ASPART 100 UNIT/ML 1 ML 10 ML VIAL SQ SCH ×7 (08:15→20:40)
[2017-05-27] MEDS: LORazepam 1 MG TAB PO PRN ×2 (08:18→20:44)
--- NOTE | 2017-05-27 11:54 | P.PN ---
Progress Note - Text Progress Note Date: 05/27/17 Interval History: Patient is a 46-year-old male is being [place] [facility] [place]. Patient reports that since beginning the Geodon the voices have decreased and he is able to ignore them. He states that they're still present however not as bothersome as they were yesterday. He states the voices were command telling him to hurt himself. He states that he is able to ignore them and is not feeling suicidal at this point. Patient states that he did sleep well last evening. Patient states that he had stopped his medications for months prior to admission, including his medications for his medical problems. He states that prior to that he was on Cymbalta and Geodon and thought that he was doing well on the combination. Patient reports no paranoid ideation. Mental Status:Appearance/Attitude: Patient is dressed in casual clothing, makes intermittent eye contact and is cooperative Behavior: Patient does not display any psychomotor agitation or retardation. Speech/Language: Patient's speech is spontaneous of normal volume and rhythm and he is coherent. Thought Process: Patient is goal-directed there is no evidence of loose association or flight of ideas Thought Content: Patient states that the voices have decreased in intensity, he is able to ignore them and they are not commanding him to hurt himself. He denies any visual hallucinations and no delusions or paranoid ideation was elicited. Patient states that he slept well and is eating well. He reports he is feeling better today, no longer feeling suicidal. Suicidal/Homicidal Ideation: Patient reports no current suicidal or homicidal ideation. Sensorium/Cognition: Patient is alert and oriented to person, place, and time and his recent and remote memory are grossly intact. Mood/Affect: Patient's mood remains depressed and his affect is blunted Insight/Judgment: Patient's insight and judgment are fair Assessment: Patient reports to me today that he feels much better on the Geodon that the voices have increased in intensity and he is able to ignore them and not feel that he has to respond to the commands to hurt himself. Patient states that he is no longer feeling suicidal and does not want hurt himself. Patient states that he is not having any side effects from the medication but continues to feel depressed. He states that he is been sleeping and eating well. Patient has been attending some groups and activities. Patient is currently on a one-to-one. Plan: Patient will continue on Geodon 20 mg twice a day and Trileptal 300 mg twice a day to target his mood symptoms and psychotic symptoms. Patient reports a decrease in his auditory hallucinations and he is no longer having suicidal thoughts or intent to act on them and so we'll discontinue his one-to- one supervision. Patient was encouraged to notify staff should the auditory hallucinations increased in intensity and his suicidal thoughts increase and he feels that he will act on them. Patient agreed to this plan. Patient continues to require hospitalization to further stabilize his mood.
[2017-05-27 12:14] LABS: Glucose,Whole Blood 315 mg/dL (75-99)
[2017-05-27 17:23] LABS: Glucose,Whole Blood 264 mg/dL (75-99)
[2017-05-27 20:09] LABS: Glucose,Whole Blood 278 mg/dL (75-99)
[2017-05-27] MEDS: ATORVASTATIN 20 MG TAB PO SCH (20:39)
[2017-05-27] MEDS: INSULIN DETEMIR 100 UNIT/ML 10 ML VIAL SQ SCH (20:40)
[2017-05-27] MEDS ORDERED: INSULIN ASPART 100 UNIT/ML 1 ML 10 ML VIAL SQ ONE (21:21)
[2017-05-27] MEDS ORDERED: INSULIN DETEMIR 100 UNIT/ML 10 ML VIAL SQ STA (21:22)
[2017-05-28 06:00] LABS: Glucose,Whole Blood 144 mg/dL (75-99)
[2017-05-28] MEDS: GLIMEPIRIDE 2 MG TAB PO SCH ×2 (07:57→17:39)
[2017-05-28] MEDS: ALLOPURINOL 300 MG TAB PO SCH (08:00)
[2017-05-28] MEDS: cloNIDine HCL 0.1 MG TAB PO SCH ×2 (08:00→16:34)
[2017-05-28] MEDS: metFORMIN 500 MG TAB PO SCH ×2 (08:00→20:07)
[2017-05-28] MEDS: GABAPENTIN 400 MG CAP PO SCH ×3 (08:00→21:04)
[2017-05-28] MEDS: OXcarbazepine 300 MG TAB PO SCH ×2 (08:01→20:07)
[2017-05-28] MEDS: NAPROXEN 250 MG TAB PO SCH ×2 (08:01→20:08)
[2017-05-28] MEDS: ZIPRASIDONE 20 MG CAP PO SCH ×2 (08:01→20:07)
[2017-05-28] MEDS: INSULIN ASPART 100 UNIT/ML 1 ML 10 ML VIAL SQ SCH ×8 (08:05→20:24)
[2017-05-28] MEDS: LORazepam 1 MG TAB PO PRN ×2 (08:37→16:35)
[2017-05-28 12:41] LABS: Glucose,Whole Blood 200 mg/dL (75-99)
--- NOTE | 2017-05-28 13:44 | P.PN ---
Progress Note - Text Progress Note Date: 05/28/17 Interval History: Patient is a 46-year-old male who was seen today and he reports that he showered and shaved and has been taking care of his ADLs much better. He states that he started attending groups and began discussing his grief over the loss of his partner who committed suicide 4 months ago. Patient reports that the auditory hallucinations are no longer command and have decreased substantially but are still present and he can ignore them at times. He states they are not aggressive as they were in the past. Patient states he continues to feel hopeless and have suicidal ideation but no plan or intent to act. Patient states he slept about 5 hours last evening. Patient states that he has been refusing the Trileptal because he wishes to discuss restarting the Cymbalta. Patient reported no side effects from his medication. Patient states that he refused his clonidine because his blood pressure has been fine. Mental Status: Appearance/Attitude: Patient is appropriately dressed, makes good eye contact and is cooperative. Behavior: Patient did not exhibit any psychomotor agitation or retardation. Speech/Language: Speech is spontaneous and normal volume and rhythm and he is coherent. Thought Process: Patient is goal-directed there is no evidence of loose association or flight of ideas. Thought Content: Patient reports he continues to hear auditory hallucinations but they are much less frequent, less aggressive not command and he can ignore them at times. He denies any visual hallucinations and no delusions or paranoid ideation were elicited. Patient states that he is been showering and caring for his personal hygiene. Patient states he has been attending groups and began discussing the loss of his partner due to suicide 4 months ago. Patient states he remains hopeless and is trying to focus on the future. Patient states that he slept about 5 hours last night. Suicidal/Homicidal Ideation: patient is denying any homicidal ideation and states that he continues to have suicidal thoughts however has no plan or intent to act on them. Sensorium/Cognition: patient is alert and oriented to person, place, and time and his recent and remote memory are grossly intact. Mood/Affect: patient states his mood is depressed and hopeless and his affect is blunted Insight/Judgment: patient's insight and judgment are fair Assessment: patient states that he's begun caring for his personal hygiene, has been attending groups and discussing the loss of his partner by suicide. Patient states he is trying to focus on the future and make plans for himself but continues to struggle with feeling hopeless. Patient states that he is refusing the Trileptal because he would like to be changed back to Cymbalta which he was on before. He also has refused his clonidine because his blood pressure he states is fine without it. Patient has been compliant with the rest of his medications. He continues to have auditory hallucinations that have decreased with the restart of Geodon. Plan: Patient will continue on his current medications, continues to require hospitalization to further stabilize his mood and he will discuss his medication changes with his physician tomorrow. Patient was encouraged to continue to attend groups and activities and participate. Patient was also encouraged to his suicidal thoughts become more intense to seek staff out.
[2017-05-28 17:51] LABS: Glucose,Whole Blood 265 mg/dL (75-99)
[2017-05-28 20:07] LABS: Glucose,Whole Blood 278 mg/dL (75-99)
[2017-05-28] MEDS: ATORVASTATIN 20 MG TAB PO SCH (20:07)
[2017-05-28] MEDS: INSULIN DETEMIR 100 UNIT/ML 10 ML VIAL SQ SCH (20:24)
[2017-05-28] MEDS ORDERED: INSULIN DETEMIR 100 UNIT/ML 10 ML VIAL SQ STA (20:34)
[2017-05-28] MEDS: ALBUTEROL INHALER 60 PUFF/8 GM INHALER INHALATION PRN (21:45)
[2017-05-29] MEDS: LORazepam 1 MG TAB PO PRN ×2 (00:15→10:08)
[2017-05-29 06:13] LABS: Glucose,Whole Blood 132 mg/dL (75-99)
[2017-05-29] MEDS: INSULIN ASPART 100 UNIT/ML 1 ML 10 ML VIAL SQ SCH ×7 (07:58→20:43)
[2017-05-29] MEDS: GLIMEPIRIDE 2 MG TAB PO SCH ×2 (07:58→17:59)
[2017-05-29] MEDS: GABAPENTIN 400 MG CAP PO SCH ×3 (08:49→21:46)
[2017-05-29] MEDS: OXcarbazepine 300 MG TAB PO SCH ×3 (08:49→20:49)
[2017-05-29] MEDS: metFORMIN 500 MG TAB PO SCH ×2 (08:49→20:50)
[2017-05-29] MEDS: ALLOPURINOL 300 MG TAB PO SCH (08:49)
[2017-05-29] MEDS: ZIPRASIDONE 20 MG CAP PO SCH (08:49)
[2017-05-29] MEDS: NAPROXEN 250 MG TAB PO SCH ×2 (08:50→20:50)
--- NOTE | 2017-05-29 12:04 | P.PN ---
Progress Note - Text Progress Note Date: 05/29/17 Patient was seen for routine follow-up examination. He has been doing better over the weekend and is not on one-to-one supervision anymore. He has been getting frequent when necessary Ativan and he has a history of abusing drugs in the past. In view of this it was changed to Vistaril when necessary. He is still asking for Cymbalta which was prescribed to him during his last hospitalization here. He was again counseled that he should not be on antidepressants when he has the diagnosis of bipolar disorder. He asked his Geodon to be increased reporting that he hears voices. Patient often reports of several symptoms which cannot be verified/confirmed by objective means. For example he became irate insisting that he shouldn't have x-ray of his left elbow for possible fracture when he did not have any objective signs of injury to the elbow and the x-ray report is negative for any injury. Counseling is not effective. Patient gets demanding manipulative etc. and when he does not get what he wants he throws tantrums including self abusive behavior. This is an obese ambulatory white male with adequate hygiene. He attends groups and socializes with peers at times. His speech is spontaneous and goal- directed. His mood is dull to dysphoric and becomes labile, tearful at times. He also reports of hearing voices telling him to hurt himself. But he said he does not want to kill himself. He also wants several medications. He is oriented with adequate memory concentration etc. Plan: Increase Geodon to 40 mg twice a day, continue Trileptal and Neurontin, groups and other therapies. When necessary Ativan was changed to when necessary Vistaril earlier this morning.
[2017-05-29 12:46] LABS: Glucose,Whole Blood 213 mg/dL (75-99)
[2017-05-29 14:19] VITALS: BMI 48.7
[2017-05-29 17:39] LABS: Glucose,Whole Blood 274 mg/dL (75-99)
[2017-05-29] MEDS: ZIPRASIDONE 40 MG CAP PO SCH (17:59)
[2017-05-29 20:23] LABS: Glucose,Whole Blood 272 mg/dL (75-99)
[2017-05-29] MEDS: INSULIN DETEMIR 100 UNIT/ML 10 ML VIAL SQ SCH (20:44)
[2017-05-29] MEDS: ATORVASTATIN 20 MG TAB PO SCH (20:50)
[2017-05-29] MEDS: hydrOXYzine PAMOATE 25 MG CAP PO PRN (20:57)
[2017-05-30 06:15] LABS: Glucose,Whole Blood 204 mg/dL (75-99)
[2017-05-30] MEDS: INSULIN ASPART 100 UNIT/ML 1 ML 10 ML VIAL SQ SCH ×7 (08:08→20:42)
[2017-05-30] MEDS: ZIPRASIDONE 40 MG CAP PO SCH ×2 (08:09→17:45)
[2017-05-30] MEDS: NAPROXEN 250 MG TAB PO SCH ×2 (09:09→20:43)
[2017-05-30] MEDS: metFORMIN 500 MG TAB PO SCH ×2 (09:09→20:15)
[2017-05-30] MEDS: GLIMEPIRIDE 2 MG TAB PO SCH ×2 (09:09→17:45)
[2017-05-30] MEDS: GABAPENTIN 400 MG CAP PO SCH ×3 (09:09→20:43)
[2017-05-30] MEDS: OXcarbazepine 300 MG TAB PO SCH ×2 (09:09→20:43)
[2017-05-30] MEDS: ALLOPURINOL 300 MG TAB PO SCH (09:09)
[2017-05-30] MEDS: hydrOXYzine PAMOATE 25 MG CAP PO PRN (09:11)
[2017-05-30] MEDS: ALBUTEROL INHALER 60 PUFF/8 GM INHALER INHALATION PRN (09:22)
[2017-05-30 13:00] LABS: Glucose,Whole Blood 199 mg/dL (75-99)
[2017-05-30 17:48] LABS: Glucose,Whole Blood 317 mg/dL (75-99)
[2017-05-30 20:17] LABS: Glucose,Whole Blood 343 mg/dL (75-99)
[2017-05-30] MEDS: INSULIN DETEMIR 100 UNIT/ML 10 ML VIAL SQ SCH (20:41)
[2017-05-30] MEDS: ATORVASTATIN 20 MG TAB PO SCH (20:44)
[2017-05-31 06:21] LABS: Glucose,Whole Blood 246 mg/dL (75-99)
[2017-05-31] MEDS: INSULIN ASPART 100 UNIT/ML 1 ML 10 ML VIAL SQ SCH ×7 (07:58→20:20)
[2017-05-31] MEDS: GABAPENTIN 400 MG CAP PO SCH ×3 (08:03→20:57)
[2017-05-31] MEDS: NAPROXEN 250 MG TAB PO SCH ×2 (08:03→20:56)
[2017-05-31] MEDS: ZIPRASIDONE 40 MG CAP PO SCH ×2 (08:04→17:19)
[2017-05-31] MEDS: OXcarbazepine 300 MG TAB PO SCH (08:04)
[2017-05-31] MEDS: ALLOPURINOL 300 MG TAB PO SCH (08:04)
[2017-05-31] MEDS: metFORMIN 500 MG TAB PO SCH ×2 (08:04→20:56)
[2017-05-31] MEDS: GLIMEPIRIDE 2 MG TAB PO SCH ×2 (08:04→17:23)
--- NOTE | 2017-05-31 10:02 | P.PN ---
Progress Note - Text Progress Note Date: 05/31/17 Patient was seen for routine follow-up examination. He said he is not feeling well, feels tired, still gets suicidal thoughts etc. His blood sugar level is very high and it consult for adjustment of his insulin was requested this morning. He usually stays by himself and does not socialize. He tends to lay down in bed and appears to be sleeping more than necessary. He does not attend the groups regularly either. This is an obese ambulatory white male with fair to poor hygiene. He is slow in moving around. His speech is soft short and goal directed. His mood is anxious and dysphoric. His affect is appropriate to the thought content. He continues to report of having suicidal thoughts. But he said he will not do anything to hurt himself and will report to the staff if he thinks he cannot control himself. He denies homicidal thoughts. He denies hallucinations and delusional thinking. He is oriented with adequate memory concentration etc. Plan: Continue Geodon 40 mg twice a day, increase Trileptal to 450 mg twice a day, continue groups and other activities, it consult was requested regarding his high blood sugar.
[2017-05-31 12:12] LABS: Glucose,Whole Blood 342 mg/dL (75-99)
[2017-05-31] MEDS: ALBUTEROL INHALER 60 PUFF/8 GM INHALER INHALATION PRN (17:08)
[2017-05-31 17:13] LABS: Glucose,Whole Blood 230 mg/dL (75-99)
[2017-05-31 20:19] LABS: Glucose,Whole Blood 255 mg/dL (75-99)
[2017-05-31] MEDS: ATORVASTATIN 20 MG TAB PO SCH (20:56)
[2017-05-31] MEDS: OXcarbazepine 150 MG TAB PO SCH (20:57)
[2017-05-31] MEDS ORDERED: INSULIN DETEMIR 100 UNIT/ML 10 ML VIAL SQ SCH (21:00)
[2017-06-01 06:13] LABS: Glucose,Whole Blood 183 mg/dL (75-99)
[2017-06-01 07:21] VITALS: TEMP 97.4
[2017-06-01] MEDS: INSULIN ASPART 100 UNIT/ML 1 ML 10 ML VIAL SQ SCH ×7 (07:53→20:27)
[2017-06-01] MEDS: ALLOPURINOL 300 MG TAB PO SCH (08:04)
[2017-06-01] MEDS: NAPROXEN 250 MG TAB PO SCH ×2 (08:04→21:39)
[2017-06-01] MEDS: GLIMEPIRIDE 2 MG TAB PO SCH ×2 (08:04→17:44)
[2017-06-01] MEDS: metFORMIN 500 MG TAB PO SCH ×2 (08:04→21:39)
[2017-06-01] MEDS: ZIPRASIDONE 40 MG CAP PO SCH ×2 (08:04→17:44)
[2017-06-01] MEDS: OXcarbazepine 150 MG TAB PO SCH ×2 (08:05→21:39)
[2017-06-01] MEDS: GABAPENTIN 400 MG CAP PO SCH ×3 (08:05→21:39)
--- NOTE | 2017-06-01 09:34 | P.PN ---
Progress Note - Text Progress Note Date: 06/01/17 Patient was seen for routine follow-up examination. His chart was reviewed by the medical records analyst, his evening dose of insulin was increased along with coverage insulin dose. His sugar level today is about 184. He feels better, said he does not have any suicidal thoughts and does not hear voices. He does not feel tired of her and down like he did yesterday. He shaved his face including his mustache and goatee. This is an obese ambulatory white male with adequate hygiene. He is polite and cooperative. He does not show any psychomotor agitation or retardation. His speech is spontaneous relevant and goal-directed. His mood is euthymic and affect is appropriate. He denies suicidal and homicidal thoughts today. He also denies hallucinations and delusional thinking. He is oriented with adequate memory concentration etc. Plan: Continue Geodon 40 mg twice a day, Trileptal 450 mg twice a day, Neurontin and other medications. Continue groups and other therapies. Consider discharging him tomorrow if he does well today.
[2017-06-01] MEDS: ALBUTEROL INHALER 60 PUFF/8 GM INHALER INHALATION PRN ×2 (09:41→21:09)
[2017-06-01 12:26] LABS: Glucose,Whole Blood 161 mg/dL (75-99)
[2017-06-01 17:01] LABS: Glucose,Whole Blood 226 mg/dL (75-99)
[2017-06-01 20:07] LABS: Glucose,Whole Blood 310 mg/dL (75-99)
[2017-06-01] MEDS ORDERED: INSULIN ASPART 100 UNIT/ML 1 ML 10 ML VIAL SQ ONE (20:30)
[2017-06-01] MEDS ORDERED: INSULIN DETEMIR 100 UNIT/ML 10 ML VIAL SQ SCH (21:00)
[2017-06-01] MEDS: ATORVASTATIN 20 MG TAB PO SCH (21:39)
[2017-06-01 22:45] LABS: Glucose,Whole Blood 355 mg/dL (75-99)
[2017-06-01 23:54] LABS: Glucose,Whole Blood 309 mg/dL (75-99)
[2017-06-02 06:44] LABS: Glucose,Whole Blood 191 mg/dL (75-99)
[2017-06-02 06:51] VITALS: BP 146/86; PULSE 75; RESP 20
[2017-06-02] MEDS: INSULIN ASPART 100 UNIT/ML 1 ML 10 ML VIAL SQ SCH ×6 (07:58→18:04)
[2017-06-02] MEDS: GLIMEPIRIDE 2 MG TAB PO SCH ×2 (07:59→18:02)
[2017-06-02] MEDS: GABAPENTIN 400 MG CAP PO SCH ×2 (09:07→17:07)
[2017-06-02] MEDS: OXcarbazepine 150 MG TAB PO SCH (09:07)
[2017-06-02] MEDS: ALLOPURINOL 300 MG TAB PO SCH (09:08)
[2017-06-02] MEDS: NAPROXEN 250 MG TAB PO SCH (09:08)
[2017-06-02] MEDS: ZIPRASIDONE 40 MG CAP PO SCH ×2 (09:08→18:02)
[2017-06-02] MEDS: metFORMIN 500 MG TAB PO SCH (09:08)
[2017-06-02] MEDS: ALBUTEROL INHALER 60 PUFF/8 GM INHALER INHALATION PRN (09:20)
--- NOTE | 2017-06-02 10:14 | P.DS ---
Providers Date of admission: 05/23/17 17:29 Expected date of discharge: 06/02/17 Attending physician: King Esteban Consults: 05/23/17 17:33 Consult Physician Routine Consulting Provider: Dillon Magana Consult Reason/Comments: H and P and medical management. Patient has not taken any meds x 4 mos Do you want consulting provider notified?: Yes 05/31/17 09:49 Consult Physician Urgent Consulting Provider: Dillon Magana Consult Reason/Comments: High glucose level Do you want consulting provider notified?: Yes Primary care physician: [facility] Course: Patient had his psychiatric examination, physical examination and psychosocial evaluation. After psychiatric evaluation and discussing with him about treatment it was agreed to start him on Seroquel 100 mg at bedtime and Trileptal 300 mg twice a day for mood stabilization and other medications for physical problems were continued. Patient did not want to get his Seroquel increased and wanted to take antidepressants narcotics etc. when he was counseled and it was not approved he became upset angry and started to cover his head with pillowcase. He was placed on one to one supervision overnight. Next morning he insisted that he will not do anything to hurt himself and comply with treatment. In view of this his one-to-one supervision was discontinued. However the same evening he engaged in similar behavior. He put the pillowcase on his head and the sheet around his neck when his request for narcotics were not approved. He was again placed on one-to-one supervision and was asked to sleep in the observation room without any sheets pillowcase or blankets. Next morning he again promises that he will not do anything to hurt himself and wanted to go back to his room with the sheets pillows pillowcases etc. But he was counseled about his not complying with his promises and we wanted to make sure he is okay at least for another 24 hours before his restrictions were removed. Next morning he became more cooperative and his observation room and other restrictions were removed. Following this he became more cooperative and at the same time his Seroquel was changed to Geodon 20 mg twice a day per his request. His Geodon was further increased to 40 mg twice a day and of course his Seroquel was discontinued when his Geodon was increased. He continued to report that he feels tired rundown etc. and wanted some other medications for it. Review of his lab work indicated his blood sugar was over 350, he was counseled and a medical consult was made. His evening dose of insulin was increased by the distributor sales consultant. His when necessary insulin on sliding scale was also increased. For one day his blood sugar had improved but it went up again. client relationship consultant increased his evening dose of insulin again and today the blood sugar is fine. Patient continues to feel better, denies hallucinations suicidal thoughts etc. and feels he is ready to go home. In view of this it was agreed to discharge him. Condition on discharge: This is an obese ambulatory white male with adequate hygiene. He does not show any psychomotor agitation or retardation. His speech is spontaneous relevant and goal-directed. His mood is euthymic and affect is appropriate. He continues to deny suicide and homicide thoughts. He also denies hallucinations and delusional thinking. His insight and judgment have improved. His cognitive functions are intact. Diagnosis on discharge: Unspecified bipolar and related disorder F 31.9. Cannabis use disorder severe F 12.20 Cocaine use disorder mild F 14.10 Opioid use disorder probably by diversion moderate to severe F 11.20. ALLERGY to Motrin. COPD. Diabetes mellitus. Hyper lipidemia. Gout. Chronic pain. Obesity. 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 Plan - Discharge Summary Discharge Rx Participant: No New Discharge Prescriptions: New Atorvastatin [Lipitor] 20 mg PO HS tab Insulin Aspart [NovoLOG (formulary)] 8 unit SQ AC-TID vial Insulin Aspart [NovoLOG (formulary)] 0 unit SQ ACHS vial Insulin Detemir [Levemir] 45 unit SQ HS syr Naproxen [Naprosyn] 500 mg PO BID 30 Days #60 tab OXcarbazepine [Trileptal] 450 mg PO BID tab Ziprasidone [Geodon] 40 mg PO AC-BID cap Continue Albuterol Sulfate [Proair Hfa] 1 - 2 puff INHALATION RT-Q6H PRN 30 Days #2 hfa.aer.ad PRN Reason: Wheezing Allopurinol [Zyloprim] 300 mg PO DAILY 30 Days #30 tab Gabapentin 800 mg PO TID 30 Days #60 tablet Glimepiride [Amaryl] 2 mg PO AC-BID 30 Days #60 tab metFORMIN HCL ER [Glucophage Xr] 500 mg PO BID 30 Days #60 tab.er.24h Discontinued Canagliflozin [Invokana] 300 mg PO DAILY Insulin Detemir [Levemir Flextouch] 35 units SQ HS Simvastatin [Zocor] 40 mg PO HS Insulin Aspart [NovoLOG (formulary)] See Protocol SQ AC-TID Discharge Medication List Albuterol Sulfate [Proair Hfa] 1 - 2 puff INHALATION RT-Q6H PRN 30 Days #2 hfa.aer.ad 06/02/17 [Rx] Allopurinol [Zyloprim] 300 mg PO DAILY 30 Days #30 tab 06/02/17 [Rx] Atorvastatin [Lipitor] 20 mg PO HS tab 06/02/17 [Rx] Gabapentin 800 mg PO TID 30 Days #60 tablet 06/02/17 [Rx] Glimepiride [Amaryl] 2 mg PO AC-BID 30 Days #60 tab 06/02/17 [Rx] Insulin Aspart [NovoLOG (formulary)] 0 unit SQ ACHS vial 06/02/17 [Rx] Insulin Aspart [NovoLOG (formulary)] 8 unit SQ AC-TID vial 06/02/17 [Rx] Insulin Detemir [Levemir] 45 unit SQ HS syr 06/02/17 [Rx] Naproxen [Naprosyn] 500 mg PO BID 30 Days #60 tab 06/02/17 [Rx] OXcarbazepine [Trileptal] 450 mg PO BID tab 06/02/17 [Rx] Ziprasidone [Geodon] 40 mg PO AC-BID cap 06/02/17 [Rx] metFORMIN HCL ER [Glucophage Xr] 500 mg PO BID 30 Days #60 tab.er.24h 06/02/17 [ Rx] Follow up Appointment(s)/Referral(s): [facility] [Outside] - 06/05/17 1:00 pm (06-05-17 @ 1:00 with Alexi Salamanca 06-20-17 @ 3:[address] Ramirez) Meredith Reich MD [Primary Care Provider] - 1 Week Activity/Diet/Wound Care/Special Instructions: Activity and diet as tolerated. Avoid the use of street drugs and alcohol. Remove all firearms from the home. Take all medications as prescribed. Follow up with your Primary Care Physician in one to two days. When you are in need of refills on your medications please contact your medical provider and/or your outpatient psychiatrist to have this done. Please go to the scheduled outpatient appointment for aftercare. If symptoms return or become worse call the crisis line and/ or go the nearest emergency room for an evaluation. l
[2017-06-02 12:37] LABS: Glucose,Whole Blood 201 mg/dL (75-99)
[2017-06-02 17:36] LABS: Glucose,Whole Blood 276 mg/dL (75-99)
== END 2017-06-02 07:44 | disposition home or self-care (01) | DRG 885 ==
LOC: EC 14:57 → 3MHU 17:29
PROVIDERS: ADMIT Psychiatry & Neurology Psychiatry; ATTEND Psychiatry & Neurology Psychiatry
DX: F31.9 Bipolar disorder, unspecified (principal); R45.851 Suicidal ideations; E66.2 Morbid (severe) obesity with alveolar hypoventilation; Z68.42 Body mass index [BMI] 45.0-49.9, adult; E78.5 Hyperlipidemia, unspecified; E11.40 Type 2 diabetes mellitus with diabetic neuropathy, unspecified; F14.90 Cocaine use, unspecified, uncomplicated; F12.90 Cannabis use, unspecified, uncomplicated; F11.90 Opioid use, unspecified, uncomplicated; F43.10 Post-traumatic stress disorder, unspecified; M79.605 Pain in left leg; M79.672 Pain in left foot; M54.9 Dorsalgia, unspecified; F41.9 Anxiety disorder, unspecified; G89.29 Other chronic pain; I10 Essential (primary) hypertension; J44.9 Chronic obstructive pulmonary disease, unspecified; M10.9 Gout, unspecified; M19.90 Unspecified osteoarthritis, unspecified site; Z79.4 Long term (current) use of insulin; Z79.899 Other long term (current) drug therapy; Z91.19 Patient's noncompliance with other medical treatment and regimen; Z88.6 Allergy status to analgesic agent; Z81.8 Family history of other mental and behavioral disorders; Z82.3 Family history of stroke; Z82.49 Family history of ischemic heart disease and other diseases of the circulatory system; Z83.3 Family history of diabetes mellitus; Z80.9 Family history of malignant neoplasm, unspecified
CPT/HCPCS: 36415; 80053; 80306; 81001; 82075; 83036; 84443; 84484; 85025; 93005; 94640; 99285

== ENCOUNTER 2017-06-26 23:04 | Inpatient (IN) | payer MEDICARE, MEDICAID ==
--- NOTE | 2017-06-27 00:44 | ED ---
Psych HPI - General Chief Complaint: Psychiatric Symptoms Stated Complaint: MENTAL HEALTH Time Seen by Provider: 06/27/17 00:21 Source: patient Mode of arrival: ambulatory - History of Present Illness Initial Comments: This patient is a 46-year-old man with history of bipolar disorder. The patient states that over the past nearly one week he has been feeling worse than usual. Patient felt like his psychiatric medications were not helping so he stopped taking them. He has been having worsening of depressed mood, and then over the past 4 days has been having worsening of suicidal ideation. MD Complaint: suicidal ideation, feels depressed -: days(s) Associated Psychiatric Symptoms: depression, suicidal ideation History of same: Yes Quality: getting worse Improves With: none Worsens With: none Context: not taking psychiatric medications Associated Symptoms: denies other symptoms - Related Data Previous Rx's Medication Instructions Recorded Albuterol Sulfate [Proair Hfa] 1 - 2 puff INHALATION RT-Q6H PRN 06/02/17 30 Days #2 hfa.aer.ad Allopurinol [Zyloprim] 300 mg PO DAILY 30 Days #30 tab 06/02/17 Atorvastatin [Lipitor] 20 mg PO HS tab 06/02/17 Gabapentin 800 mg PO TID 30 Days #60 tablet 06/02/17 Glimepiride [Amaryl] 2 mg PO AC-BID 30 Days #60 tab 06/02/17 Insulin Aspart [NovoLOG 0 unit SQ ACHS vial 06/02/17 (formulary)] Insulin Aspart [NovoLOG 8 unit SQ AC-TID vial 06/02/17 (formulary)] Insulin Detemir [Levemir] 45 unit SQ HS syr 06/02/17 Naproxen [Naprosyn] 500 mg PO BID 30 Days #60 tab 06/02/17 OXcarbazepine [Trileptal] 450 mg PO BID tab 06/02/17 Ziprasidone [Geodon] 40 mg PO AC-BID cap 06/02/17 metFORMIN HCL ER [Glucophage Xr] 500 mg PO BID 30 Days #60 06/02/17 tab.er.24h Allergies Allergy/AdvReac Type Severity Reaction Status Date / Time ibuprofen [From Motrin] Allergy Rash/Hives Verified 06/26/17 23:13 Review of Systems ROS Statement: Those systems with pertinent positive or pertinent negative responses have been documented in the HPI. ROS Other: All systems not noted in ROS Statement are negative. Constitutional: Denies: fever Respiratory: Denies: cough, dyspnea Cardiovascular: Denies: chest pain, palpitations, orthopnea Gastrointestinal: Denies: abdominal pain, vomiting, diarrhea Genitourinary: Denies: dysuria, hematuria Musculoskeletal: Denies: back pain Skin: Denies: rash Neurological: Denies: headache, weakness Psychiatric: Reports: depression, suicidal thoughts. Denies: auditory hallucinations, visual hallucinations, homicidal thoughts Past Medical History Past Medical History: Diabetes Mellitus, Hyperlipidemia, Hypertension Additional Past Medical History / Comment(s): pt stated on his own stopped hi meds 4 months ago and has'nt been checking bs either.neuropathy,arthritis gout, depression.in past broke lt foot(sx ), myron carpal tunnel History of Any Multi-Drug Resistant Organisms: None Reported Additional Past Surgical History / Comment(s): lasik eye sx ,left foot surgery. to reprair break-"has 2 plates and 16 screws" Past Anesthesia/Blood Transfusion Reactions: No Reported Reaction Past Psychological History: Anxiety, Bipolar, Depression, Schizophrenia Smoking Status: Never smoker Past Alcohol Use History: None Reported Past Drug Use History: Cocaine, Marijuana - Past Family History Mother Family Medical History: Cancer, Diabetes Mellitus Father Family Medical History: Myocardial Infarction (OR) Additional Family Medical History / Comment(s): stroke General Exam Limitations: no limitations General appearance: alert, in no apparent distress, obese Head exam: Present: atraumatic, normocephalic Eye exam: Present: normal appearance. Absent: scleral icterus, conjunctival injection Respiratory exam: Present: normal lung sounds bilaterally. Absent: respiratory distress, wheezes, rales, rhonchi, stridor Cardiovascular Exam: Present: regular rate, normal rhythm, normal heart sounds. Absent: systolic murmur, diastolic murmur, rubs, gallop GI/Abdominal exam: Present: soft. Absent: tenderness, guarding, rebound Back exam: Present: normal inspection Neurological exam: Present: alert Psychiatric exam: Present: normal affect, depressed. Absent: agitated, anxious , homicidal ideation Skin exam: Present: warm, dry, intact, normal color. Absent: rash Course Vital Signs 06/26/17 23:09 Temperature 98.4 F Pulse Rate 91 Respiratory 20 Rate Blood Pressure 173/89 O2 Sat by Pulse 92 L Oximetry Disposition Referrals: Meredith Reich MD [Primary Care Provider] - 1-2 days
[2017-06-27 01:36] LABS: Glucose,Whole Blood 338 mg/dL (75-99)
[2017-06-27] MEDS ORDERED: INSULIN DETEMIR 100 UNIT/ML 10 ML VIAL SQ STA (02:01)
[2017-06-27] MEDS ORDERED: MAGNESIUM HYDROXIDE 2,400 MG/10 ML CUP PO PRN (05:57)
[2017-06-27] MEDS ORDERED: ZIPRASIDONE 20 MG VIAL IM PRN (05:57)
[2017-06-27] MEDS ORDERED: LORazepam 1 MG TAB PO PRN (05:57)
[2017-06-27] MEDS ORDERED: MAG HYDROX/AL HYDROX/SIMETH 30 ML CUP PO PRN (05:57)
[2017-06-27] MEDS ORDERED: ACETAMINOPHEN TAB 325 MG TAB PO PRN (05:57)
[2017-06-27 06:20] VITALS: BMI 49.8
[2017-06-27 06:42] LABS: Glucose,Whole Blood 270 mg/dL (75-99)
[2017-06-27] MEDS: GLIMEPIRIDE 2 MG TAB PO SCH ×2 (08:07→17:22)
[2017-06-27] MEDS: metFORMIN 500 MG TAB PO SCH ×2 (08:07→20:26)
[2017-06-27] MEDS: ZIPRASIDONE 40 MG CAP PO SCH ×2 (08:07→17:22)
[2017-06-27 09:00] LABS: Basophils # (A) 0.2 k/uL (0-0.2); Basophils % (A) 1 %; Eosinophils # (A) 0.6 k/uL (0-0.7); Eosinophils % (A) 4 %; HGB 18.9 gm/dL (13.0-17.5); Lymphocytes # (A) 4.6 k/uL (1.0-4.8); Lymphocytes % (A) 33 %; MCH 29.7 pg (25.0-35.0); MCHC 33.1 g/dL (31.0-37.0); MCV 89.7 fL (80.0-100.0); Mean Platelet Volume 8.6; Monocytes % (A) 7 %; Neutrophils # (A) 7.4 k/uL (1.3-7.7); Neutrophils % (A) 53 %; Platelet Count 291 k/uL (150-450); RBC 6.36 m/uL (4.30-5.90); RDW 13.5 % (11.5-15.5); WBC 13.9 k/uL (3.8-10.6)
[2017-06-27] MEDS ORDERED: NICOTINE 14MG/24HR PATCH TRANSDERM SCH (09:00)
[2017-06-27 09:03] LABS: HCT 57.1 % (39.0-53.0)
[2017-06-27 09:17] LABS: ALT 44 U/L (21-72); AST 43 U/L (17-59); Albumin 4.1 g/dL (3.5-5.0); Alkaline Phosphatase 102 U/L (38-126); Anion Gap 13 mmol/L; Blood Urea Nitrogen 17 mg/dL (9-20); Calcium 9.7 mg/dL (8.4-10.2); Carbon Dioxide 27 mmol/L (22-30); Chloride 99 mmol/L (98-107); Cholesterol 287 mg/dL (<200); Glucose 308 mg/dL (74-99); HDL Cholesterol 46 mg/dL (40-60); LDL Cholesterol,Calculated 187 mg/dL (0-99); Potassium 4.9 mmol/L (3.5-5.1); Sodium 139 mmol/L (137-145); Total Bilirubin 1.1 mg/dL (0.2-1.3); Total Protein 7.3 g/dL (6.3-8.2); Triglycerides 268 mg/dL (<150)
[2017-06-27] MEDS: OXcarbazepine 150 MG TAB PO SCH ×2 (09:22→20:26)
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
[2017-06-27 13:09] LABS: Glucose,Whole Blood 227 mg/dL (75-99)
[2017-06-27 17:35] LABS: Hemoglobin A1C 10.4 % (4.0-6.0)
[2017-06-27 17:41] LABS: Glucose,Whole Blood 232 mg/dL (75-99)
[2017-06-27 20:25] LABS: Glucose,Whole Blood 250 mg/dL (75-99)
[2017-06-27] MEDS: NAPROXEN 250 MG TAB PO SCH (20:26)
[2017-06-27] MEDS: ATORVASTATIN 20 MG TAB PO SCH (20:26)
[2017-06-27] MEDS: INSULIN ASPART 100 UNIT/ML 1 ML 10 ML VIAL SQ SCH (20:27)
[2017-06-27] MEDS: INSULIN DETEMIR 100 UNIT/ML 10 ML VIAL SQ SCH (20:27)
[2017-06-27] MEDS ORDERED: INSULIN DETEMIR 100 UNIT/ML 10 ML VIAL SQ SCH (21:00)
--- NOTE | 2017-06-27 22:36 | CONS ---
CONSULTATION REASON FOR CONSULTATION: Advice regarding diabetes and other medical issues requested by psychiatry. HISTORY OF PRESENT ILLNESS: This 40-year-old gentleman with past medical history of diabetes mellitus, hypertension and hyperlipidemia being followed by Dr. Reich in the outpatient setting was admitted for psychiatric evaluation. The patient apparently stopped medication for the last 4 months and not checking the blood sugars and the patient has been noncompliant also. There is no history of any fever, rigors. No history of headache, loss of consciousness, seizures at this time. Hemoglobin A1c is around 10. PAST MEDICAL HISTORY: History of hypertension, diabetes, hyperlipidemia, history of anxiety, bipolar, depression, schizophrenia. MEDICATIONS PRIOR TO ADMISSION: 1. Metformin 500 mg p.o. b.i.d. 2. Geodon 40 mg b.i.d. 3. Trileptal 450 mg p.o. b.i.d. 4. Naprosyn 500 mg p.o. b.i.d. 5. Levemir 45 units subcu q.h.s. 6. NovoLog t.i.d. 7. Amaryl 2 mg a.c. b.i.d. 8. Gabapentin 800 mg p.o. t.i.d. 9. Lipitor 20 mg q.h.s. 10.Zyloprim 300 mg p.o. daily. 11. 1-2 q.6h p.r.n. ALLERGIES: IBUPROFEN. FAMILY HISTORY: History of cancer, diabetes and stroke in the family. SOCIAL HISTORY: History of cocaine previously. REVIEW OF SYSTEMS: ENT: No diminished hearing or vision. CARDIOVASCULAR: No angina. RESPIRATORY: No cough or hemoptysis. GI: As mentioned earlier. : No dysuria. NERVOUS SYSTEM: No numbness or weakness. ALLERGY/IMMUNOLOGY: As mentioned. MUSCULOSKELETAL: As mentioned. HEMATOLOGY: History of anemia. ENDOCRINE: Diabetes mellitus. CONSTITUTIONAL: As mentioned. DERMATOLOGY: Negative. PSYCHIATRY: As mentioned earlier. PHYSICAL EXAMINATION: Alert and oriented x3. Pulse is 90, blood pressure 144/97, respiration 20, temperature 97.9, pulse ox 98% room air. HEENT: Conjunctivae normal. Oral mucosa moist. Neck is no jugular venous distention. No lymph node enlargement. CARDIOVASCULAR SYSTEM: S1 and S2, muffled. No S3 or S4. RESPIRATIONS: Diminished breath sounds at the bases. No rhonchi, no crackles. ABDOMEN: Soft, obese, nontender. No mass palpable. LEGS: No edema, no swelling. NERVOUS SYSTEM: Higher functions as mentioned earlier. Moves all four limbs. No focal deficits LYMPHATICS: No lymphadenopathy in the neck or axillae. SKIN: No ulcer, rash or bleeding. LAB STUDIES: At this time shows WBC 11.2, hemoglobin is 18.9 with blood glucose 308. ASSESSMENT: 1. Diabetes type 2 uncontrolled. 2. Hypertension. 3. Hyperlipidemia. 4. History of noncompliance. 5. Anxiety, bipolar, depression. 6. Schizophrenia. 7. History of cocaine and marijuana. 8. The patient is a FULL CODE. 9. Hyperlipidemia. RECOMMENDATIONS AND DISCUSSION: In this 46-year-old gentleman who presented with multiple complex medical issues , we will monitor the patient closely. Continue the current management and symptomatic treatment. I would recommend initiate the home dose of insulin and monitor closely. Home medication also may be continued. The importance of compliance is discussed with the patient. Otherwise, the patient is asked to follow closely with Dr. Reich in the outpatient setting. The rest of the recommendations per Psychiatry. Outpatient drug rehab. Prognosis guarded because of multiple complex medical issues. Further recommendations to follow. MMODL / IJN: [id number] / MTDBrando
[2017-06-28 06:31] LABS: Glucose,Whole Blood 202 mg/dL (75-99)
[2017-06-28 06:59] LABS: Appearance,Urine Cloudy (Clear); Bilirubin,Urine Negative (Negative); Blood,Urine Negative (Negative); Color,Urine Yellow; Glucose,Urine (UA) 4+ (Negative); Ketones,Urine Negative (Negative); Leukocyte Esterase,Urine Large (Negative); Mucus,Urine Many /hpf; Nitrite,Urine Negative (Negative); PH, Urine 5.5 (5.0-8.0); Protein,Urine 1+ (Negative); RBC,Urine 12 /hpf (0-5); Specific Gravity,Urine 1.034 (1.001-1.035); Squamous Epithelial Cell,Urine 4 /hpf (0-4); WBC,Urine 6 /hpf (0-5)
[2017-06-28 07:08] LABS: Amphetamine Screen,Urine Not Detected (NotDetected); Barbiturate Screen,Urine Not Detected (NotDetected); Benzodiazepines Screen,Urine Detected (NotDetected); Cocaine Screen,Urine Detected (NotDetected); Methadone Screen, Urine Not Detected (NotDetected); Opiate Screen,Urine Not Detected (NotDetected); Oxycodone Screen, Urine Not Detected (NotDetected); Phencyclidine Screen,Urine Not Detected (NotDetected); Tricyclic Antidepressant,Urine Not Detected (NotDetected); Urn Cannabinoid Scrn Detected (NotDetected)
[2017-06-28] MEDS: INSULIN ASPART 100 UNIT/ML 1 ML 10 ML VIAL SQ SCH ×7 (07:56→20:20)
[2017-06-28] MEDS: NAPROXEN 250 MG TAB PO SCH ×2 (08:00→20:19)
[2017-06-28] MEDS: ZIPRASIDONE 40 MG CAP PO SCH ×2 (08:00→18:03)
[2017-06-28] MEDS: GLIMEPIRIDE 2 MG TAB PO SCH ×2 (08:00→18:03)
[2017-06-28] MEDS: ALLOPURINOL 300 MG TAB PO SCH (08:00)
[2017-06-28] MEDS: metFORMIN 500 MG TAB PO SCH ×2 (08:00→20:19)
[2017-06-28] MEDS: OXcarbazepine 150 MG TAB PO SCH ×2 (08:00→20:20)
[2017-06-28] MEDS: hydrOXYzine PAMOATE 25 MG CAP PO PRN (08:00)
--- NOTE | 2017-06-28 11:36 | P.PN ---
Progress Note - Text Progress Note Date: 06/28/17 Patient was seen for routine follow-up examination. He usually stays in his bed and does not attend groups regularly. He was encouraged to attend groups. Apparently he was visited by [facility] on the day of his admission and he was doing well at that time. Patient's drug screening is positive for benzodiazepines cocaine and cannabis. When he was asked about it, he said he relapsed, became depressed suicidal and that is why he came to the ER. His urinalysis indicates he has UTI and he agreed to take antibiotics. Patient was also advised to shower and keep himself clean to prevent skin infections. He said he would. He does not have any other specific complaint. This is an obese ambulatory male with strong body odor. He is slow in moving around. His speech is soft short and goal directed. Mood is dull/dysphoric and affect is constricted in range. He continues to report of feeling depressed and having suicide thoughts. But he continues to contract for safety. He denies homicidal thoughts. He denies hallucinations and delusional thinking. His sensorium is clear. Plan: Continue Geodon, Trileptal, groups and other activities. Start on Bactrim DS for UTI. Patient was advised to shower and clean himself up on a daily basis.
[2017-06-28] MEDS: SULFAMETHOX-TMP 800-160MG 1 EACH TAB PO SCH ×2 (12:52→20:20)
[2017-06-28 13:00] LABS: Glucose,Whole Blood 243 mg/dL (75-99)
[2017-06-28 17:37] LABS: Glucose,Whole Blood 219 mg/dL (75-99)
[2017-06-28 20:04] LABS: Glucose,Whole Blood 199 mg/dL (75-99)
[2017-06-28] MEDS: ATORVASTATIN 20 MG TAB PO SCH (20:19)
[2017-06-28] MEDS: INSULIN DETEMIR 100 UNIT/ML 10 ML VIAL SQ SCH (20:20)
[2017-06-29 06:12] LABS: Glucose,Whole Blood 210 mg/dL (75-99)
[2017-06-29] MEDS: ALLOPURINOL 300 MG TAB PO SCH (08:15)
[2017-06-29] MEDS: SULFAMETHOX-TMP 800-160MG 1 EACH TAB PO SCH ×3 (08:15→20:34)
[2017-06-29] MEDS: GLIMEPIRIDE 2 MG TAB PO SCH ×2 (08:15→17:56)
[2017-06-29] MEDS: INSULIN ASPART 100 UNIT/ML 1 ML 10 ML VIAL SQ SCH ×7 (08:15→20:36)
[2017-06-29] MEDS: OXcarbazepine 150 MG TAB PO SCH ×2 (08:15→20:33)
[2017-06-29] MEDS: metFORMIN 500 MG TAB PO SCH ×2 (08:15→20:33)
[2017-06-29] MEDS: ZIPRASIDONE 40 MG CAP PO SCH ×2 (08:20→18:03)
[2017-06-29] MEDS: NAPROXEN 250 MG TAB PO SCH (10:02)
--- NOTE | 2017-06-29 10:27 | P.PN ---
Progress Note - Text Progress Note Date: 06/29/17 Patient was seen for follow-up examination. He is up and about today. He attended groups. He had showered is today. Today he asked to be put on Neurontin for his neuropathy. He agreed to discontinue naproxen. His blood sugar is 210 early this morning. This is an obese ambulatory white male. He does not have body order today. He is polite and cooperative. His speech is soft short and goal directed. His mood is dysphoric and affect is rather constricted in range. He continues to report of suicide thoughts but he has contracted for safety. He denies homicidal thoughts. He denies hallucinations and delusional thinking. He is well oriented with adequate memory concentration etc. Plan: Continue Trileptal Geodon groups and other therapies. Change naproxen to Neurontin per his request for neuropathy pain.
[2017-06-29 12:33] LABS: Glucose,Whole Blood 145 mg/dL (75-99)
[2017-06-29] MEDS: GABAPENTIN 400 MG CAP PO SCH ×2 (17:17→21:09)
[2017-06-29 18:00] LABS: Glucose,Whole Blood 258 mg/dL (75-99)
[2017-06-29 20:32] LABS: Glucose,Whole Blood 165 mg/dL (75-99)
[2017-06-29] MEDS: INSULIN DETEMIR 100 UNIT/ML 10 ML VIAL SQ SCH (20:33)
[2017-06-29] MEDS: ATORVASTATIN 20 MG TAB PO SCH (20:33)
[2017-06-30 06:34] LABS: Glucose,Whole Blood 176 mg/dL (75-99)
[2017-06-30] MEDS: INSULIN ASPART 100 UNIT/ML 1 ML 10 ML VIAL SQ SCH ×7 (07:55→20:50)
[2017-06-30] MEDS: GABAPENTIN 400 MG CAP PO SCH ×3 (08:02→20:52)
[2017-06-30] MEDS: SULFAMETHOX-TMP 800-160MG 1 EACH TAB PO SCH ×2 (08:02→20:52)
[2017-06-30] MEDS: metFORMIN 500 MG TAB PO SCH ×2 (08:02→20:52)
[2017-06-30] MEDS: GLIMEPIRIDE 2 MG TAB PO SCH ×2 (08:02→18:01)
[2017-06-30] MEDS: OXcarbazepine 150 MG TAB PO SCH ×2 (08:02→20:52)
[2017-06-30] MEDS: ZIPRASIDONE 40 MG CAP PO SCH ×2 (08:02→18:01)
[2017-06-30] MEDS: ALLOPURINOL 300 MG TAB PO SCH (08:02)
--- NOTE | 2017-06-30 12:29 | P.PN ---
Progress Note - Text Progress Note Date: 06/30/17 Patient was seen for a follow-up examination. He slept well last night, got up in the morning and went for breakfast again today. He also is attending his groups. Otherwise he does not socialize much. He said he feels better today. His blood sugar today is 176. He said he cannot return to his apartment since his housemates help thrown his belongings in the trash. He thinks he may be able to stay with his sister until he can be on his own. This is an obese ambulatory white male with adequate hygiene. He continues not to have auditory order today also. He is unshaven. He does not show any psychomotor agitation or retardation. His speech is spontaneous and goal- directed. His mood is fairly euthymic and affect is appropriate today. He said he did not have any suicidal thoughts yesterday afternoon and today so far. He continues to deny homicidal thoughts. He also denies hallucinations and delusional thinking. He is well oriented with adequate memory concentration general knowledge etc. Plan: Continue Geodon, Trileptal and other medications for physical problems, groups and other activities.
[2017-06-30 13:00] LABS: Glucose,Whole Blood 211 mg/dL (75-99)
[2017-06-30 17:48] LABS: Glucose,Whole Blood 168 mg/dL (75-99)
[2017-06-30 20:42] LABS: Glucose,Whole Blood 249 mg/dL (75-99)
[2017-06-30] MEDS: INSULIN DETEMIR 100 UNIT/ML 10 ML VIAL SQ SCH (20:50)
[2017-06-30] MEDS: ATORVASTATIN 20 MG TAB PO SCH (20:52)
[2017-06-30] MEDS: hydrOXYzine PAMOATE 25 MG CAP PO PRN (20:53)
[2017-07-01 06:25] LABS: Glucose,Whole Blood 201 mg/dL (75-99)
[2017-07-01 06:52] VITALS: RESP 16
[2017-07-01] MEDS: INSULIN ASPART 100 UNIT/ML 1 ML 10 ML VIAL SQ SCH ×7 (07:49→20:31)
[2017-07-01] MEDS: GLIMEPIRIDE 2 MG TAB PO SCH ×2 (07:50→17:59)
[2017-07-01] MEDS: OXcarbazepine 150 MG TAB PO SCH ×2 (07:50→20:26)
[2017-07-01] MEDS: ZIPRASIDONE 40 MG CAP PO SCH ×2 (07:50→17:59)
[2017-07-01] MEDS: GABAPENTIN 400 MG CAP PO SCH ×3 (07:50→21:40)
[2017-07-01] MEDS: metFORMIN 500 MG TAB PO SCH ×2 (07:51→20:26)
[2017-07-01] MEDS: SULFAMETHOX-TMP 800-160MG 1 EACH TAB PO SCH ×2 (07:51→20:26)
[2017-07-01] MEDS: ALLOPURINOL 300 MG TAB PO SCH (07:58)
[2017-07-01 12:59] LABS: Glucose,Whole Blood 286 mg/dL (75-99)
--- NOTE | 2017-07-01 14:44 | P.PN ---
Progress Note - Text Progress Note Date: 07/01/17 Interval history: Patient is seen in cross coverage today. He reports that he is feeling better mood spear. Sleep and appetite seem to be stable. He does not voice any adverse psychotropic medication side effects. He was about to call his sister when I called him for the interview. Mental status exam: He is alert and cooperative with the interview. His speech is fluent, not rapid or pressured. Thought processes are organized. His mood is improved. He denies any thoughts of harm to self or others. He relates that his auditory hallucinations are gone. He does not make any delusional statements. He does not show any agitation. Plan: He will maintain current psychotropic medication regimen. We'll continue to cover this patient for the weekend. We'll continue to monitor his status and monitor for any medication side effects.
[2017-07-01 17:44] LABS: Glucose,Whole Blood 227 mg/dL (75-99)
[2017-07-01] MEDS: ATORVASTATIN 20 MG TAB PO SCH (20:26)
[2017-07-01] MEDS: INSULIN DETEMIR 100 UNIT/ML 10 ML VIAL SQ SCH (20:32)
[2017-07-01 20:43] LABS: Glucose,Whole Blood 252 mg/dL (75-99)
[2017-07-01] MEDS: hydrOXYzine PAMOATE 25 MG CAP PO PRN (21:41)
[2017-07-02 06:05] LABS: Glucose,Whole Blood 195 mg/dL (75-99)
[2017-07-02] MEDS: INSULIN ASPART 100 UNIT/ML 1 ML 10 ML VIAL SQ SCH ×7 (08:22→22:21)
[2017-07-02] MEDS: ZIPRASIDONE 40 MG CAP PO SCH ×2 (08:23→18:06)
[2017-07-02] MEDS: OXcarbazepine 150 MG TAB PO SCH ×2 (08:23→22:12)
[2017-07-02] MEDS: metFORMIN 500 MG TAB PO SCH ×2 (08:23→22:12)
[2017-07-02] MEDS: ALLOPURINOL 300 MG TAB PO SCH (08:24)
[2017-07-02] MEDS: GABAPENTIN 400 MG CAP PO SCH ×3 (08:24→22:12)
[2017-07-02] MEDS: GLIMEPIRIDE 2 MG TAB PO SCH ×2 (08:24→18:05)
[2017-07-02] MEDS: SULFAMETHOX-TMP 800-160MG 1 EACH TAB PO SCH ×2 (08:24→22:12)
[2017-07-02 12:50] LABS: Glucose,Whole Blood 238 mg/dL (75-99)
--- NOTE | 2017-07-02 16:25 | P.PN ---
Progress Note - Text Progress Note Date: 07/02/17 Interval history: Patient is seen in [facility] today. He says he slept about 9 hours last night. He does not voice any adverse psychotropic medication side effects. His mood overall seems improved. Mental status exam: He is alert and cooperative with the interview. His speech is fluent, not rapid or pressured. Thought processes are organized. His mood overall seems improved. He says he no longer having any auditory hallucinations. He denies any thoughts of harm to self or others. Plan: Patient will be maintained on current psychotropic medication regimen. We will continue to monitor for any medication side effects and monitor his ongoing response to treatment, showing improved status.
[2017-07-02 17:45] LABS: Glucose,Whole Blood 212 mg/dL (75-99)
[2017-07-02] MEDS: ALBUTEROL INHALER 60 PUFF/8 GM INHALER INHALATION PRN (19:46)
[2017-07-02 20:29] LABS: Glucose,Whole Blood 324 mg/dL (75-99)
[2017-07-02] MEDS: ATORVASTATIN 20 MG TAB PO SCH (22:11)
[2017-07-02] MEDS: hydrOXYzine PAMOATE 25 MG CAP PO PRN (22:13)
[2017-07-02] MEDS: INSULIN DETEMIR 100 UNIT/ML 10 ML VIAL SQ SCH (22:16)
[2017-07-03 06:41] LABS: Glucose,Whole Blood 205 mg/dL (75-99)
[2017-07-03 07:20] VITALS: BP 104/66; PULSE 80; TEMP 97.8
[2017-07-03] MEDS: INSULIN ASPART 100 UNIT/ML 1 ML 10 ML VIAL SQ SCH ×4 (07:52→12:46)
[2017-07-03] MEDS: ALLOPURINOL 300 MG TAB PO SCH (07:56)
[2017-07-03] MEDS: GLIMEPIRIDE 2 MG TAB PO SCH (07:56)
[2017-07-03] MEDS: OXcarbazepine 150 MG TAB PO SCH (07:56)
[2017-07-03] MEDS: ZIPRASIDONE 40 MG CAP PO SCH (07:56)
[2017-07-03] MEDS: metFORMIN 500 MG TAB PO SCH (07:56)
[2017-07-03] MEDS: GABAPENTIN 400 MG CAP PO SCH (07:56)
[2017-07-03] MEDS: SULFAMETHOX-TMP 800-160MG 1 EACH TAB PO SCH (07:56)
[2017-07-03] MEDS: ALBUTEROL INHALER 60 PUFF/8 GM INHALER INHALATION PRN (09:11)
--- NOTE | 2017-07-03 10:41 | P.DS ---
Providers Date of admission: 06/27/17 02:55 Expected date of discharge: 07/03/17 Attending physician: King Esteban Consults: 06/27/17 05:57 Consult Physician Routine Consulting Provider: Dillon Magana Consult Reason/Comments: medical management Do you want consulting provider notified?: Yes, Notify in am Primary care physician: Rachana Nuñez [facility] Course: Patient had his psychiatric evaluation, physical examination and psychosocial evaluation. After psychiatric evaluation he was continued on his previous medications of Geodon 20 mg twice a day and Trileptal 450 mg twice a day. His medications for physical problems were continued. He gradually improved, his mood became more euthymic and stable, became free of suicide thoughts, started to socialize, attends groups, shower and changed to clean close etc. His naproxen was changed to Neurontin per his request for pain. His blood sugar came down but it was still over 200. Medical consult was made and it was found out that patient has been taking Invokana at home and it is nonformulary here and he was getting other kind of hypoglycemic agents which apparently was not helping him well. He agreed to return to Invokana once he gets home. Apparently he talked to his friends and they agreed to take him back under the condition that he will not abuse drugs, go to the meetings etc. In view of all these it was agreed to discharge him. Patient's lab work showed evidence of UTI and he was started on Bactrim DS which helped to clear the infection. Condition on discharge: This is an obese ambulatory white male with adequate hygiene. He is polite and cooperative. He does not show any psychomotor agitation or retardation. His speech is spontaneous relevant and goal- directed. His mood is euthymic and affect is appropriate. He continues to deny suicide and homicide thoughts. He also denies hallucinations and delusional thinking. He is well oriented with adequate memory concentration general fund of knowledge etc. His insight and judgment have improved. Diagnosis on discharge: Unspecified bipolar and related disorder F 31.9. Cannabis use disorder severe F 12.20. Cocaine use disorder moderate to severe F 14.20. History of opioid use disorder moderate to severe F 11.20. ALLERGY to Motrin. COPD. Diabetes mellitus. Hyper lipidemia. Gout. Chronic pain. Vicente obesity. UTI. 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 Patient Condition at Discharge: Stable Plan - Discharge Summary Discharge Rx Participant: No New Discharge Prescriptions: New Gabapentin [Neurontin] 800 mg PO TID cap Insulin Aspart [NovoLOG (formulary)] 0 unit SQ ACHS vial Mag Hydrox/Al Hydrox/Simeth [Maalox] 30 ml PO Q4HR PRN cup PRN Reason: Gi Upset Sulfamethox-Tmp 800-160Mg [Bactrim DS 800-160 mg] 1 each PO BID 2 Days #4 tab Continue Insulin Aspart [NovoLOG (formulary)] 8 unit SQ AC-TID vial Insulin Detemir [Levemir] 45 unit SQ HS syr OXcarbazepine [Trileptal] 450 mg PO BID tab Ziprasidone [Geodon] 40 mg PO AC-BID cap Albuterol Sulfate [Proair Hfa] 1 - 2 puff INHALATION RT-Q6H PRN 30 Days #2 hfa.aer.ad PRN Reason: Wheezing Allopurinol [Zyloprim] 300 mg PO DAILY 30 Days #30 tab Atorvastatin [Lipitor] 20 mg PO HS 30 Days #30 tab metFORMIN HCL ER [Glucophage Xr] 500 mg PO BID 30 Days #60 tab.er.24h Discontinued Insulin Aspart [NovoLOG (formulary)] 0 unit SQ ACHS vial Naproxen [Naprosyn] 500 mg PO BID 30 Days #60 tab Glimepiride [Amaryl] 2 mg PO AC-BID 30 Days #60 tab No Action Gabapentin 800 mg PO TID 30 Days #60 tablet Discharge Medication List Albuterol Sulfate [Proair Hfa] 1 - 2 puff INHALATION RT-Q6H PRN 30 Days #2 hfa.aer.ad 06/02/17 [Rx] Gabapentin 800 mg PO TID 30 Days #60 tablet 06/02/17 [Rx] Insulin Aspart [NovoLOG (formulary)] 8 unit SQ AC-TID vial 06/02/17 [Rx] Insulin Detemir [Levemir] 45 unit SQ HS syr 04/13/18 [Rx] OXcarbazepine [Trileptal] 450 mg PO BID tab 06/02/17 [Rx] Ziprasidone [Geodon] 40 mg PO AC-BID cap 06/02/17 [Rx] Allopurinol [Zyloprim] 300 mg PO DAILY 30 Days #30 tab 07/03/17 [Rx] Atorvastatin [Lipitor] 20 mg PO HS 30 Days #30 tab 07/03/17 [Rx] Gabapentin [Neurontin] 800 mg PO TID cap 07/03/17 [Rx] Insulin Aspart [NovoLOG (formulary)] 0 unit SQ ACHS vial 07/03/17 [Rx] Mag Hydrox/Al Hydrox/Simeth [Maalox] 30 ml PO Q4HR PRN cup 07/03/17 [Rx] Sulfamethox-Tmp 800-160Mg [Bactrim DS 800-160 mg] 1 each PO BID 2 Days #4 tab [Rx] metFORMIN HCL ER [Glucophage Xr] 500 mg PO BID 30 Days #60 tab.er.24h 07/03/17 [ Rx] Follow up Appointment(s)/Referral(s): Meredith Reich MD [Primary Care Provider] - 1-2 days
[2017-07-03 12:17] LABS: Glucose,Whole Blood 255 mg/dL (75-99)
== END 2017-07-03 13:28 | disposition home or self-care (01) | DRG 885 ==
LOC: EC 23:04 → 3MHU 06-27 02:15 → UNDOADMIN 06-27 02:15 → 3MHU 06-27 02:55
PROVIDERS: ADMIT Psychiatry & Neurology Psychiatry; ATTEND Psychiatry & Neurology Psychiatry
DX: F31.9 Bipolar disorder, unspecified (principal); Z68.42 Body mass index [BMI] 45.0-49.9, adult; N39.0 Urinary tract infection, site not specified; F14.20 Cocaine dependence, uncomplicated; F11.20 Opioid dependence, uncomplicated; R45.851 Suicidal ideations; F12.20 Cannabis dependence, uncomplicated; J44.9 Chronic obstructive pulmonary disease, unspecified; E11.65 Type 2 diabetes mellitus with hyperglycemia; E78.5 Hyperlipidemia, unspecified; M10.9 Gout, unspecified; E11.42 Type 2 diabetes mellitus with diabetic polyneuropathy; G89.29 Other chronic pain; F20.9 Schizophrenia, unspecified; I10 Essential (primary) hypertension; E66.01 Morbid (severe) obesity due to excess calories; F41.9 Anxiety disorder, unspecified; Z83.3 Family history of diabetes mellitus; Z82.3 Family history of stroke; Z88.8 Allergy status to other drugs, medicaments and biological substances; Z81.8 Family history of other mental and behavioral disorders; Z82.49 Family history of ischemic heart disease and other diseases of the circulatory system; Z79.4 Long term (current) use of insulin; Z91.19 Patient's noncompliance with other medical treatment and regimen; Z79.899 Other long term (current) drug therapy
CPT/HCPCS: 36415; 80053; 80061; 80306; 81001; 82075; 83036; 84443; 85025; 94640

== ENCOUNTER 2018-01-17 11:49 | Inpatient (IN) | payer MEDICARE ==
[2018-01-17] MEDS ORDERED: ONDANSETRON 4 MG/2 ML VIAL IVP STA (12:21)
[2018-01-17] MEDS ORDERED: SODIUM CHLORIDE 0.9% 1,000 ML IV ONE ×2 (12:21→13:47)
[2018-01-17] MEDS ORDERED: MORPHINE SULFATE 4 MG/ML SYRINGE IVP STA (12:21)
--- NOTE | 2018-01-17 12:59 | ED ---
Skin/Abscess/FB HPI - General Chief complaint: Skin/Abscess/Foreign Body Stated complaint: abscess inner leg Time Seen by Provider: 01/17/18 11:58 Source: patient, RN notes reviewed Mode of arrival: ambulatory Limitations: no limitations - History of Present Illness Initial comments: 47-year-old male presents emergency Department chief complaint of left groin swelling and abscess. Patient states that started 2 days ago he states initially was a small pimple-like structure. He states he attempted to pop it and states now has grown to the point where he is having difficulty walking, severe pain. He has a known diabetic takes metformin and insulin. Patient states that his blood sugar has been elevated in the 400s. Patient states she' s felt that he's had chills and sweats at home. Patient states she's never had any like this in the past. Denies any abdominal pain, nausea vomiting. - Related Data Home Medications Medication Instructions Recorded Confirmed No Known Home Medications 01/17/18 01/17/18 Allergies Allergy/AdvReac Type Severity Reaction Status Date / Time ibuprofen [From Motrin] Allergy Rash/Hives Verified 01/17/18 11:53 Review of Systems ROS Statement: Those systems with pertinent positive or pertinent negative responses have been documented in the HPI. ROS Other: All systems not noted in ROS Statement are negative. Past Medical History Past Medical History: Diabetes Mellitus, Hyperlipidemia, Hypertension Additional Past Medical History / Comment(s): pt stated on his own stopped hi meds 4 months ago and has'nt been checking bs either.neuropathy,arthritis gout, depression.in past broke lt foot(sx ), myron carpal tunnel History of Any Multi-Drug Resistant Organisms: None Reported Additional Past Surgical History / Comment(s): lasik eye sx ,left foot surgery. to reprair break-"has 2 plates and 16 screws" Past Anesthesia/Blood Transfusion Reactions: No Reported Reaction Past Psychological History: Anxiety, Bipolar, Depression, Schizophrenia Smoking Status: Never smoker Past Alcohol Use History: None Reported Past Drug Use History: Cocaine, Marijuana - Past Family History Mother Family Medical History: Cancer, Diabetes Mellitus Father Family Medical History: Myocardial Infarction ([place]) Additional Family Medical History / Comment(s): stroke General Exam Limitations: no limitations General appearance: alert, in no apparent distress Head exam: Present: atraumatic, normocephalic, normal inspection Respiratory exam: Present: normal lung sounds bilaterally. Absent: respiratory distress, wheezes, rales, rhonchi, stridor Cardiovascular Exam: Present: regular rate, normal rhythm, normal heart sounds. Absent: systolic murmur, diastolic murmur, rubs, gallop, clicks GI/Abdominal exam: Present: soft, normal bowel sounds, other (Left inguinal region there is no extensive area swelling and erythema an abscess, swelling approximately 8 cm by 5 cm). Absent: distended, tenderness, guarding, rebound, rigid Skin exam: Present: warm, dry, intact, normal color. Absent: rash Course Vital Signs 01/17/18 01/17/18 11:51 14:49 Temperature 97.6 F 97.5 F L Pulse Rate 89 95 Respiratory 22 18 Rate Blood Pressure 147/106 150/94 O2 Sat by Pulse 97 94 L Oximetry Medical Decision Making - Lab Data Result diagrams: 01/17/18 12:25 01/17/18 12:25 Lab Results 01/17/18 01/17/18 01/17/18 Range/Units 12:25 12:25 12:25 WBC 14.3 H (3.8-10.6) k/uL RBC 5.89 (4.30-5.90) m/uL Hgb 17.4 (13.0-17.5) gm/dL Hct 53.6 H (39.0-53.0) % MCV 90.9 (80.0-100.0) fL MCH 29.5 (25.0-35.0) pg MCHC 32.4 (31.0-37.0) g/dL RDW 13.2 (11.5-15.5) % Plt Count 200 (150-450) k/uL Neutrophils % 74 % Lymphocytes % 16 % Monocytes % 5 % Eosinophils % 2 % Basophils % 1 % Neutrophils # 10.6 H (1.3-7.7) k/uL Lymphocytes # 2.3 (1.0-4.8) k/uL Monocytes # 0.8 (0-1.0) k/uL Eosinophils # 0.2 (0-0.7) k/uL Basophils # 0.1 (0-0.2) k/uL PT 10.3 (9.0-12.0) sec INR 1.1 (<1.2) APTT 25.3 (22.0-30.0) sec Sodium 132 L (137-145) mmol/L Potassium 4.6 (3.5-5.1) mmol/L Chloride 98 (98-107) mmol/L Carbon Dioxide 17 L (22-30) mmol/L Anion Gap 17 mmol/L BUN 11 (9-20) mg/dL Creatinine 0.68 (0.66-1.25) mg/dL Est GFR (CKD-EPI)AfAm >90 (>60 ml/min/1.73 sqM) Est GFR (CKD-EPI)NonAf >90 (>60 ml/min/1.73 sqM) Glucose 454 H (74-99) mg/dL Plasma Lactic Acid Nicho (0.7-2.0) mmol/L Calcium 8.9 (8.4-10.2) mg/dL Total Bilirubin 1.5 H (0.2-1.3) mg/dL AST 42 (17-59) U/L ALT 47 (21-72) U/L Alkaline Phosphatase 105 (38-126) U/L Total Protein 7.6 (6.3-8.2) g/dL Albumin 3.8 (3.5-5.0) g/dL 01/17/18 Range/Units 12:25 WBC (3.8-10.6) k/uL RBC (4.30-5.90) m/uL Hgb (13.0-17.5) gm/dL Hct (39.0-53.0) % MCV (80.0-100.0) fL MCH (25.0-35.0) pg MCHC (31.0-37.0) g/dL RDW (11.5-15.5) % Plt Count (150-450) k/uL Neutrophils % % Lymphocytes % % Monocytes % % Eosinophils % % Basophils % % Neutrophils # (1.3-7.7) k/uL Lymphocytes # (1.0-4.8) k/uL Monocytes # (0-1.0) k/uL Eosinophils # (0-0.7) k/uL Basophils # (0-0.2) k/uL PT (9.0-12.0) sec INR (<1.2) APTT (22.0-30.0) sec Sodium (137-145) mmol/L Potassium (3.5-5.1) mmol/L Chloride (98-107) mmol/L Carbon Dioxide (22-30) mmol/L Anion Gap mmol/L BUN (9-20) mg/dL Creatinine (0.66-1.25) mg/dL Est GFR (CKD-EPI)AfAm (>60 ml/min/1.73 sqM) Est GFR (CKD-EPI)NonAf (>60 ml/min/1.73 sqM) Glucose (74-99) mg/dL Plasma Lactic Acid Nicho 1.6 (0.7-2.0) mmol/L Calcium (8.4-10.2) mg/dL Total Bilirubin (0.2-1.3) mg/dL AST (17-59) U/L ALT (21-72) U/L Alkaline Phosphatase (38-126) U/L Total Protein (6.3-8.2) g/dL Albumin (3.5-5.0) g/dL Disposition Clinical Impression: Uncontrolled diabetes mellitus, Hyperglycemia, Cellulitis of groin, left Disposition: ADMITTED IP TO THIS HOSP Condition: Fair Referrals: Meredith Reich MD [Primary Care Provider] - 1-2 days
[2018-01-17 13:12] LABS: Basophils # (A) 0.1 k/uL (0-0.2); Basophils % (A) 1 %; Eosinophils # (A) 0.2 k/uL (0-0.7); Eosinophils % (A) 2 %; HCT 53.6 % (39.0-53.0); HGB 17.4 gm/dL (13.0-17.5); Lymphocytes # (A) 2.3 k/uL (1.0-4.8); Lymphocytes % (A) 16 %; MCH 29.5 pg (25.0-35.0); MCHC 32.4 g/dL (31.0-37.0); MCV 90.9 fL (80.0-100.0); Mean Platelet Volume 8.6; Monocytes # (A) 0.8 k/uL (0-1.0); Monocytes % (A) 5 %; Neutrophils # (A) 10.6 k/uL (1.3-7.7); Neutrophils % (A) 74 %; Platelet Count 200 k/uL (150-450); RBC 5.89 m/uL (4.30-5.90); RDW 13.2 % (11.5-15.5); WBC 14.3 k/uL (3.8-10.6)
[2018-01-17 13:34] LABS: ALT 47 U/L (21-72); AST 42 U/L (17-59); Albumin 3.8 g/dL (3.5-5.0); Alkaline Phosphatase 105 U/L (38-126); Anion Gap 17 mmol/L; Blood Urea Nitrogen 11 mg/dL (9-20); Calcium 8.9 mg/dL (8.4-10.2); Carbon Dioxide 17 mmol/L (22-30); Chloride 98 mmol/L (98-107); Glucose 454 mg/dL (74-99); Potassium 4.6 mmol/L (3.5-5.1); Sodium 132 mmol/L (137-145); Total Bilirubin 1.5 mg/dL (0.2-1.3); Total Protein 7.6 g/dL (6.3-8.2)
[2018-01-17 13:40] LABS: INR 1.1 (<1.2); Partial Thromboplastin Time 25.3 sec (22.0-30.0); Prothrombin Time 10.3 sec (9.0-12.0)
[2018-01-17] MEDS ORDERED: INSULIN REGULAR 100 UNIT/ML VIAL IV ONE (13:47)
--- NOTE | 2018-01-17 15:04 | CT ---
EXAMINATION TYPE: CT pelvis w con DATE OF EXAM: 01/17/2018 COMPARISON: NONE HISTORY: 47-year-old male Left sided groin abscess TECHNIQUE: Contiguous axial scanning of the pelvis following administration of 100 ml Isovue 300 IV c ontrast. Delayed images through the bladder and coronal/sagittal reconstructions performed. CT DLP: 3030.2 mGycm Automated exposure control for dose reduction was used. FINDINGS: No dilated small bowel, free fluid, or free air. No visualized lower abdominal or pelvic lymphadenopa thy. Some prominent left inguinal lymph nodes measure up to 1.4 cm. Normal appendix. Symmetric uptake and excretion of contrast from the kidneys Prostate gland is small. Large patient body habitus with abundant subcutaneous fat. This seems to surround the proximal aspect of the penis. There is focal air along the expected course of the penis, refer to series 501 axial i mage 67. This may represent air trapped along the surrounded penis or below the foreskin. Skin thickening and focal phlegmonous change involving the anterior peritoneal panniculitis ascending to the left inguinal region. No focal fluid collection. Bones: Degenerative changes lower lumbar spine. IMPRESSION: 1. FINDINGS COMPATIBLE WITH CELLULITIS ALONG THE ANTERIOR LEFT PERINEUM INCLUDING THE PATIENT'S ANTER IOR PANNICULUS AND LEFT INGUINAL REGION. NO DISCRETE ABSCESS. 2. SOFT TISSUE PANNICULUS SURROUNDS THE PENIS. ALONG THE EXPECTED COURSE OF THE PENIS, THERE IS A FOC AL POCKET OF AIR. THIS COULD REPRESENT AIR TRAPPED BETWEEN THE PENIS AND PANNICULUS OR UNDERNEATH THE FORESKIN. CORRELATE CLINICALLY TO EXCLUDE ABNORMAL ACCUMULATION OF AIR IN THIS LOCATION.
[2018-01-17] MEDS ORDERED: PIPERACILLIN-TAZOBACTAM 3.375 GM in SODIUM CHLORIDE 0.9% 100 ML IVPB STA (15:38)
[2018-01-17] MEDS ORDERED: VANCOMYCIN IV PER PHARMACY 1 EACH MISC MISCELLANE PRN (15:38)
[2018-01-17] MEDS ORDERED: NALOXONE 0.4 MG/ML 1 ML VIAL IV PRN (15:40)
[2018-01-17] MEDS ORDERED: VANCOMYCIN 2,500 MG in SODIUM CHLORIDE 0.9% 500 ML 500 ML IVPB ONE (16:00)
[2018-01-17] MEDS: SODIUM CHLORIDE 0.9% 1,000 ML IV SCH (16:24)
[2018-01-17] MEDS: MORPHINE SULFATE 4 MG/ML SYRINGE IV PRN ×2 (16:52→21:14)
[2018-01-17] MEDS ORDERED: ALPRAZolam 0.25 MG TAB PO PRN (17:23)
[2018-01-17] MEDS ORDERED: ACETAMINOPHEN TAB 500 MG TAB PO PRN (17:23)
[2018-01-17 18:08] LABS: Appearance,Urine Clear (Clear); Bilirubin,Urine Negative (Negative); Blood,Urine Negative (Negative); Color,Urine Light Yellow; Glucose,Urine (UA) 4+ (Negative); Leukocyte Esterase,Urine Negative (Negative); Nitrite,Urine Negative (Negative); Protein,Urine Negative (Negative); Specific Gravity,Urine 1.028 (1.001-1.035); Urobilinogen,Urine <2.0 mg/dL (<2.0)
[2018-01-17 18:35] LABS: Glucose,Whole Blood 360 mg/dL (75-99)
[2018-01-17] MEDS: metFORMIN 500 MG TAB PO SCH (18:36)
[2018-01-17] MEDS: HEPARIN SODIUM,PORCINE 5,000 UNIT/ML 1 ML VIAL SQ SCH (18:37)
[2018-01-17] MEDS: INSULIN ASPART 100 UNIT/ML 1 ML 10 ML VIAL SQ SCH ×2 (18:37→21:03)
--- NOTE | 2018-01-17 18:48 | HP ---
HISTORY AND PHYSICAL DATE OF SERVICE: 01/17/2018 CHIEF COMPLAINTS: Pain and swelling of the suprapubic area. HISTORY OF PRESENT ILLNESS: This 47-year-old gentleman with a past medical history of hypertension, diabetes mellitus, hyperlipidemia, anxiety, bipolar, depression, being followed by Dr. Reich in the outpatient setting, was noted to have pain and swelling of the suprapubic area. The patient also had pain in the left groin and subsequently a pimple-like structure was noted which increased in intensity, and the patient had difficulty subsequently. There is no history of any fever, rigor or chills. No history of headache, loss of consciousness. PAST MEDICAL HISTORY: 1. Diabetes mellitus. 2. Hypertension. 3. Hyperlipidemia. 4. Anxiety. 5. Bipolar. 6. Depression. 7. Schizophrenia. HOME MEDICATIONS: None. ALLERGIES: IBUPROFEN. FAMILY HISTORY: History of cancer, diabetes mellitus, stroke. SOCIAL HISTORY: No history of smoking. No history of alcohol intake. REVIEW OF SYSTEMS: ENT: No diminished hearing. No diminished vision. CARDIOVASCULAR SYSTEM: No angina, palpitations. RESPIRATORY SYSTEM: As mentioned earlier. GI: As mentioned earlier. : No dysuria or retention. NERVOUS SYSTEM: No numbness, weakness. ALLERGY/IMMUNOLOGY: No asthma, hayfever. MUSCULOSKELETAL: As mentioned earlier. HEMATOLOGY/ONCOLOGY: No history of anemia. ENDOCRINE: As mentioned earlier. CONSTITUTIONAL: As mentioned earlier. DERMATOLOGY: As mentioned earlier. RHEUMATOLOGY: Negative. PSYCHIATRY: As mentioned earlier. PHYSICAL EXAMINATION: Alert and oriented x3. Pulse 95, blood pressure 150/94, respiration 18, temperature 97.5, pulse ox 94% on room air. HEENT: Conjunctivae normal. Oral mucosa moist. NECK: No jugular venous distention. No carotid bruit. No lymph node enlargement. CARDIOVASCULAR SYSTEM: S1, S2 muffled. RESPIRATORY SYSTEM: Breath sounds diminished at the bases. A few scattered rhonchi. No crackles. ABDOMEN: Soft, non-tender. No mass palpable. LEGS: No edema. No swelling. NERVOUS SYSTEM: Higher functions as mentioned earlier. Moves all 4 limbs. No focal motor or sensory deficit. LYMPHATICS: No lymph node palpable in neck, axillae or groin. SKIN: No ulcer, rash, bleeding. EXAMINATION OF THE PUBIC AREA: Significant swelling and erythema and tenderness and punctate areas in the suprapubic area, especially left more than the right. LABS: WBC 14.3. Sodium 132. ASSESSMENT: 1. Suprapubic cellulitis with systemic inflammatory response syndrome. 2. Hyponatremia. 3. Diabetes mellitus, type 2, uncontrolled. 4. History of noncompliance. 5. Hyperlipidemia. 6. Hypertension. 7. History of peripheral neuropathy. 8. History of degenerative joint disease. 9. History of gout. 10.History of depression. 11.Bilateral carpal tunnel syndrome. 12.Anxiety, bipolar, depression and schizophrenia. 13.History of cocaine, marijuana. RECOMMENDATIONS AND DISCUSSION: In this 47-year-old gentleman who presented with multiple complex medical issues, we will monitor the patient closely, continue the current medications, continue with symptomatic treatment. Patient was previously taking Levemir 45 units subcutaneously at bedtime and NovoLog. Will continue to monitor. Continue the rest of the medications. Guarded prognosis because of multiple complex medical issues. Further recommendations to follow. See orders for further details. MMODL / IJN: [id number] /
[2018-01-17 18:52] LABS: Ketones,Urine 4+ (Negative)
[2018-01-17 20:53] LABS: Glucose,Whole Blood 353 mg/dL (75-99)
[2018-01-17] MEDS ORDERED: INSULIN DETEMIR 100 UNIT/ML 10 ML VIAL SQ SCH (21:00)
[2018-01-17] MEDS: GABAPENTIN 400 MG CAP PO SCH (21:02)
[2018-01-17] MEDS: NYSTATIN 100,000 UNIT/GM POWD 15 GM TOPICAL SCH (21:02)
[2018-01-18] MEDS: VANCOMYCIN 2,500 MG in SODIUM CHLORIDE 0.9% 500 ML 500 ML IVPB SCH ×3 (00:17→23:22)
[2018-01-18] MEDS: PIPERACILLIN-TAZOBACTAM 3.375 GM in SODIUM CHLORIDE 0.9% 100 ML IVPB SCH ×4 (00:17→23:22)
[2018-01-18] MEDS: HEPARIN SODIUM,PORCINE 5,000 UNIT/ML 1 ML VIAL SQ SCH ×4 (00:17→23:22)
[2018-01-18] MEDS: MORPHINE SULFATE 4 MG/ML SYRINGE IV PRN ×5 (02:28→21:20)
[2018-01-18] MEDS: SODIUM CHLORIDE 0.9% 1,000 ML IV SCH ×2 (06:16→18:11)
[2018-01-18 07:31] LABS: Glucose,Whole Blood 340 mg/dL (75-99)
[2018-01-18] MEDS: INSULIN ASPART 100 UNIT/ML 1 ML 10 ML VIAL SQ SCH ×4 (08:34→21:19)
[2018-01-18] MEDS: ATORVASTATIN 20 MG TAB PO SCH (08:40)
[2018-01-18] MEDS: GABAPENTIN 400 MG CAP PO SCH ×3 (08:40→23:22)
[2018-01-18] MEDS: ALLOPURINOL 300 MG TAB PO SCH (08:40)
[2018-01-18] MEDS: metFORMIN 500 MG TAB PO SCH ×2 (08:40→18:10)
[2018-01-18] MEDS: PANTOPRAZOLE 40 MG TABLET PO SCH (08:40)
[2018-01-18] MEDS: NYSTATIN 100,000 UNIT/GM POWD 15 GM TOPICAL SCH ×3 (08:42→23:25)
[2018-01-18] MEDS: NICOTINE 14MG/24HR PATCH TRANSDERM SCH (08:42)
[2018-01-18 11:35] LABS: Anion Gap 8 mmol/L; Blood Urea Nitrogen 12 mg/dL (9-20); Calcium 8.6 mg/dL (8.4-10.2); Carbon Dioxide 25 mmol/L (22-30); Chloride 103 mmol/L (98-107); Glucose 360 mg/dL (74-99); Potassium 4.6 mmol/L (3.5-5.1); Sodium 136 mmol/L (137-145)
[2018-01-18 11:39] LABS: Basophils # (A) 0.1 k/uL (0-0.2); Basophils % (A) 1 %; Eosinophils # (A) 0.3 k/uL (0-0.7); Eosinophils % (A) 3 %; HGB 16.3 gm/dL (13.0-17.5); Lymphocytes # (A) 2.4 k/uL (1.0-4.8); Lymphocytes % (A) 22 %; MCH 30.2 pg (25.0-35.0); MCHC 33.2 g/dL (31.0-37.0); MCV 90.9 fL (80.0-100.0); Mean Platelet Volume 9.4; Monocytes # (A) 0.7 k/uL (0-1.0); Monocytes % (A) 6 %; Neutrophils # (A) 7.3 k/uL (1.3-7.7); Neutrophils % (A) 67 %; Platelet Count 205 k/uL (150-450); RBC 5.39 m/uL (4.30-5.90); RDW 13.2 % (11.5-15.5); WBC 10.9 k/uL (3.8-10.6)
[2018-01-18] MEDS: INSULIN DETEMIR 100 UNIT/ML 10 ML VIAL SQ SCH ×2 (12:21→21:39)
[2018-01-18 12:27] LABS: Glucose,Whole Blood 292 mg/dL (75-99)
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
--- NOTE | 2018-01-18 16:58 | PN ---
PROGRESS NOTE DATE OF SERVICE: 01/18/2018 This 47-year-old gentleman who was admitted with suprapubic cellulitis and SIRS is being closely monitored. Patient has severe pain at this time. Psychiatric evaluation is in progress. Patient was apparently noncompliant and stopped all the medication. Blood sugar was elevated up to 360, 353, 340, 360 and 292. Past medical history reviewed. Reviewed. REVIEW OF SYSTEMS: CARDIOVASCULAR SYSTEM: No angina, palpitations. RESPIRATORY SYSTEM: As mentioned earlier. GI: As mentioned earlier. : No dysuria or retention. NERVOUS SYSTEM: No numbness, weakness. CURRENT MEDICATIONS: Reviewed. They are: 1. Tylenol 500 mg q.6 p.r.n. 2. Bet[place]da 5 mg q.4 p.r.n. 3. Zyloprim 300 mg daily. 4. Xanax 0.25 t.i.d. 5. Lipitor 20 mg daily. 6. Neurontin 400 mg t.i.d. 7. Heparin 5000 units subcutaneously q.8. 8. NovoLog scale. 9. Levemir 35 units subcutaneously b.i.d. 10.Glucophage 500 mg b.i.d. 11.Morphine. 12.Narcan. 13.Habitrol. 14.Zofran. 15.Protonix. 16.Zosyn. 17.Restoril. 18.Vancomycin. PHYSICAL EXAMINATION: Alert and oriented x3. Pulse is 101, blood pressure 125/88, respiration 18, temperature 98.9, pulse ox 92% on room air. HEENT: Conjunctivae normal. Oral mucosa moist. NECK: No thyroid enlargement. No carotid bruit. CARDIOVASCULAR SYSTEM: S1, S2 muffled. RESPIRATORY SYSTEM: Breath sounds diminished at the bases. No rhonchi. No crackles. ABDOMEN: Soft, obese, non-tender. EXAMINATION OF THE INGUINAL AREA: Suprapubic cellulitis and erythema and draining abscess also present. LEGS: No edema. No swelling. NERVOUS SYSTEM: Diffusely weak. LABS: WBC 10.9, hemoglobin 16.3, sodium 136. ASSESSMENT: 1. Suprapubic cellulitis with systemic inflammatory response syndrome. 2. Hyponatremia. 3. Diabetes mellitus, type 2, uncontrolled. 4. History of noncompliance. 5. Hyperlipidemia. 6. Hypertension. 7. History of peripheral neuropathy. 8. History of degenerative joint disease. 9. History of gout. 10.History of depression. 11.Bilateral carpal tunnel syndrome. 12.Anxiety, bipolar, depression. 13.Schizophrenia. 14.History of cocaine, marijuana. RECOMMENDATIONS AND DISCUSSION: I recommend to continue current medication, continue with the monitoring, symptomatic treatment. We will monitor the patient closely, continue with current medications, continue with symptomatic treatment. Monitor blood sugars. Increase the dose of insulin; may get twice daily. Continue with the antibiotics. Broad-spectrum IV antibiotics. Infectious disease evaluation is progress at this time. Psych consultation appreciated. Further recommendations to follow. MMODL / IJN: [id number] /
[2018-01-18 17:51] LABS: Glucose,Whole Blood 283 mg/dL (75-99)
--- NOTE | 2018-01-18 18:09 | P.GSCN ---
History of Present Illness Consult date: 01/18/18 Reason for Consult: Left groin cellulitis History of present illness: Patient presents after a 2 day history of painful swelling left groin. The patient is obese and has a pannus with a few layers of fatty tissue. The pannus extending from the suprapubic region over the groin and over the penis on the left hand side became swollen and painful 2 days ago. He came to the hospital yesterday because of the discomfort. He was also identifying significant elevation of his blood sugar. He was started on antibiotics. CAT scan was reviewed. There is area of induration there may be a few small foci of superficial subcutaneous fluid at the pannus on the left-hand side. The area was identified on CAT scan appears to be related to the retracted penis within the pannus. He does feel somewhat better today. Review of Systems The patient denies any acute changes in vision or hearing, no dysphagia or odynophagia, no chest pain or shortness of breath, no dysuria or hematuria, no headache, no runny nose, no rectal bleeding or melena, no unexplained weight loss Past Medical History Past Medical History: Diabetes Mellitus, Hyperlipidemia, Hypertension Additional Past Medical History / Comment(s): 01/17/18 pt wants flu vaccine while here. other hx includes:neuropathy,arthritis gout, depression.in past broke lt foot(sx ), myron carpal tunnel. History of Any Multi-Drug Resistant Organisms: None Reported Additional Past Surgical History / Comment(s): lasik eye sx ,left foot surgery. to reprair break-"has 2 plates and 16 screws" Past Anesthesia/Blood Transfusion Reactions: No Reported Reaction Past Psychological History: Anxiety, Bipolar, Depression, Schizophrenia Smoking Status: Never smoker Past Alcohol Use History: None Reported Past Drug Use History: Cocaine, Marijuana Additional Drug Use History / Comment(s): crack cocaine. stated quit all drug use 2015 - Past Family History Mother Family Medical History: Cancer, Diabetes Mellitus Father Family Medical History: Myocardial Infarction (NH) Additional Family Medical History / Comment(s): stroke Medications and Allergies Home Medications Medication Instructions Recorded Confirmed Type No Known Home Medications 01/17/18 01/17/18 History Allergies Allergy/AdvReac Type Severity Reaction Status Date / Time ibuprofen [From Motrin] Allergy Rash/Hives Verified 01/17/18 11:53 Surgical - Exam Vital Signs Temp Pulse Resp BP Pulse Ox 97.6 F 89 22 147/106 97 01/17/18 11:51 01/17/18 11:51 01/17/18 11:51 01/17/18 11:51 01/17/18 11:51 Physical exam: General: Well-developed, well-nourished HEENT: Normocephalic, sclerae nonicteric Abdomen: Obese, indurated fat along the left suprapubic fatty region measuring 10 x 5 cm, no fluctuance, no crepitus, mild tenderness Extremities: No edema Neuro: Alert and oriented Results - Labs 01/18/18 10:04 01/18/18 10:04 Abnormal Lab Results - Last 24 Hours (Table) 01/17/18 01/17/18 01/17/18 Range/Units 17:56 18:32 20:52 WBC (3.8-10.6) k/uL Sodium (137-145) mmol/L Creatinine (0.66-1.25) mg/dL Glucose (74-99) mg/dL POC Glucose (mg/dL) 360 H 353 H (75-99) mg/dL Urine Glucose (UA) 4+ H (Negative) Urine Ketones 4+ H (Negative) 01/18/18 01/18/18 01/18/18 Range/Units 07:27 10:04 10:04 WBC 10.9 H (3.8-10.6) k/uL Sodium 136 L (137-145) mmol/L Creatinine 0.64 L (0.66-1.25) mg/dL Glucose 360 H (74-99) mg/dL POC Glucose (mg/dL) 340 H (75-99) mg/dL Urine Glucose (UA) (Negative) Urine Ketones (Negative) 01/18/18 01/18/18 Range/Units 12:25 17:48 WBC (3.8-10.6) k/uL Sodium (137-145) mmol/L Creatinine (0.66-1.25) mg/dL Glucose (74-99) mg/dL POC Glucose (mg/dL) 292 H 283 H (75-99) mg/dL Urine Glucose (UA) (Negative) Urine Ketones (Negative) Microbiology - Last 24 Hours (Table) 01/18/18 06:20 Wound Culture - Preliminary Groin 11/28/18 12:25 Blood Culture - Preliminary Blood No Growth after 24 hours 01/17/18 17:56 Urine Culture - Preliminary Urine,Voided Diabetes panel 01/18/18 Range/Units 10:04 Sodium 136 L (137-145) mmol/L Potassium 4.6 (3.5-5.1) mmol/L Chloride 103 (98-107) mmol/L Carbon Dioxide 25 (22-30) mmol/L BUN 12 (9-20) mg/dL Creatinine 0.64 L (0.66-1.25) mg/dL Glucose 360 H (74-99) mg/dL Calcium 8.6 (8.4-10.2) mg/dL Calcium panel 01/18/18 Range/Units 10:04 Calcium 8.6 (8.4-10.2) mg/dL Pituitary panel 01/18/18 Range/Units 10:04 Sodium 136 L (137-145) mmol/L Potassium 4.6 (3.5-5.1) mmol/L Chloride 103 (98-107) mmol/L Carbon Dioxide 25 (22-30) mmol/L BUN 12 (9-20) mg/dL Creatinine 0.64 L (0.66-1.25) mg/dL Glucose 360 H (74-99) mg/dL Calcium 8.6 (8.4-10.2) mg/dL Adrenal panel 01/18/18 Range/Units 10:04 Sodium 136 L (137-145) mmol/L Potassium 4.6 (3.5-5.1) mmol/L Chloride 103 (98-107) mmol/L Carbon Dioxide 25 (22-30) mmol/L BUN 12 (9-20) mg/dL Creatinine 0.64 L (0.66-1.25) mg/dL Glucose 360 H (74-99) mg/dL Calcium 8.6 (8.4-10.2) mg/dL Assessment and Plan (1) Cellulitis of groin, left Narrative/Plan: Continue IV antibiotics. Case discussed with infectious disease. We'll follow this patient closely with you. If the patient does not improve or certainly if there is any evidence of progression would proceed with surgical drainage and debridement. At least at this time this seems to be fairly localized to the left groin pannus. Current Visit: Yes Status: Acute Code(s): L03.314 - CELLULITIS OF GROIN SNOMED Code(s): 78889992
[2018-01-18 18:34] LABS: Amphetamine Screen,Urine Not Detected (NotDetected); Barbiturate Screen,Urine Not Detected (NotDetected); Benzodiazepines Screen,Urine Not Detected (NotDetected); Cocaine Screen,Urine Not Detected (NotDetected); Methadone Screen, Urine Not Detected (NotDetected); Opiate Screen,Urine Detected (NotDetected); Oxycodone Screen, Urine Not Detected (NotDetected); Phencyclidine Screen,Urine Not Detected (NotDetected); Tricyclic Antidepressant,Urine Not Detected (NotDetected); Urn Cannabinoid Scrn Detected (NotDetected)
--- NOTE | 2018-01-18 20:22 | CONS ---
CONSULTATION DATE OF CONSULTATION: 01/18/2018. REASON FOR CONSULTATION: Left groin cellulitis. HISTORY OF PRESENT ILLNESS: The patient is a 47 -year-old male who presented to the ER at [facility] yesterday with the chief complaints of left groin swelling and redness. The pain has been going on for about 2 days. The patient says started initially as a pimple that he attempted to pop. However, the area becoming more bigger in size. The patient has been complaining of area of the left groin and panniculus to be painful. Pain described to be throbbing almost 10/10 when he present to the hospital for the last 2 days. The patient has felt nauseated but no vomiting. Has been complaining of fever with chills. With these symptoms, the patient was evaluated by the ER physician. On arrival to the ER, the patient did have did not have high-grade fever. His white count was elevated at 14.83. The patient did have a CT of the pelvis obtained that has been suggestive of possible panniculitis and soft tissue swelling but no discrete abscess. Apparently local cultures have been obtained, currently pending. He was started on vancomycin and Zosyn. Infectious Disease was consulted for further recommendations regarding antibiotic therapy. REVIEW OF SYSTEMS: CONSTITUTIONAL: Positive for weakness along with the fever. EYES: No complaint. ENT: No complaint. Respiratory: No complaint. Cardiovascular: No complaint. Genitourinary as per HPI. Gastrointestinal: No complaint. Musculoskeletal: No complaint. Integumentary as per HPI. Psychological as per HPI. Integument no complaint. Neurological no complaint. PAST MEDICAL HISTORY: Diabetes mellitus, hyperlipidemia, hypertension, bipolar depression, schizophrenia and anxiety. PAST SURGICAL HISTORY: Right foot surgery, Lasik surgery of the eye. SOCIAL HISTORY: Denies smoking. Positive for cocaine and marijuana use. No drinking. FAMILY HISTORY: Mother with history of diabetes and cancer. Father history of [place] and stroke. ALLERGIES: TO IBUPROFEN. MEDICATIONS: The patient is currently on Tylenol, [place], Zyloprim, Xanax, Lipitor, Neurontin, heparin, NovoLog, Levemir, Glucophage, Narcan, nicotine patch, nystatin powder, Zofran, Protonix, Zosyn and vancomycin q.12. EXAMINATION: Blood pressure is 115/76, pulse of 95, temperature 98.7. He is 93% on room air. General description is a middle-aged male lying in bed in no distress. No tachypnea or accessory muscles of respiration use. HEENT: Shows no pallor or scleral icterus. Oral mucosa membranes are dry. No pharyngeal erythema or thrush. Neck trachea central. No thyromegaly. Lungs unlabored breathing. Clear to auscultation anteriorly. No wheeze or crackles. Heart S1, S2. Regular rate and rhythm. ABDOMEN: Soft, no tenderness. No guarding or rigidity. Left groin area with panniculitis. The patient did have a swelling induration and redness with minimal purulent drainage, slightly warm but tender to touch. EXTREMITIES: No edema of the feet. Skin examination: No rash or mass palpable. Neurological: Patient is awake, alert, oriented times three. Mood and affect normal. LABS: Hemoglobin is 16.2, white count 14.9, BUN of 20, creatinine 0.64. Electrolytes have been normal. Blood culture obtained, currently pending. The patient did have a UA that has been negative. DIAGNOSTIC IMPRESSION AND PLAN: Patient with left groin abscess. The patient did have a panniculitis with concern for possible extending infection in view of underlying uncontrolled diabetes mellitus with starting as a pimple could be more likely a gram-positive skin altagracia such as Staph aureus or strep. However, in view of uncontrolled diabetes and location of this area in the groin, a gram-negative infection not entirely excluded. PLAN: 1. Recommend General Surgery evaluation for drainage of this abscess which should be sent for culture, both aerobic and anaerobic. 2. Vancomycin pharmacy to dose target of 15 while watching his kidney function and Vanco trough closely. 3. Zosyn 3.3 q.8 hours. 4. We will follow up on the clinical condition and culture to further adjust medication if needed. Plan of care discussed with the nurse practitioner for the primary team. MMODL / IJN: [id number] /
[2018-01-18 20:44] LABS: Glucose,Whole Blood 372 mg/dL (75-99)
[2018-01-19] MEDS: MORPHINE SULFATE 4 MG/ML SYRINGE IV PRN ×3 (01:53→12:34)
[2018-01-19 07:18] LABS: Glucose,Whole Blood 268 mg/dL (75-99)
[2018-01-19] MEDS: NICOTINE 14MG/24HR PATCH TRANSDERM SCH (08:08)
[2018-01-19] MEDS: PIPERACILLIN-TAZOBACTAM 3.375 GM in SODIUM CHLORIDE 0.9% 100 ML IVPB SCH ×2 (08:09→18:36)
[2018-01-19] MEDS: HEPARIN SODIUM,PORCINE 5,000 UNIT/ML 1 ML VIAL SQ SCH ×2 (08:09→14:39)
[2018-01-19] MEDS: ALLOPURINOL 300 MG TAB PO SCH (08:10)
[2018-01-19] MEDS: GABAPENTIN 400 MG CAP PO SCH ×2 (08:10→14:39)
[2018-01-19] MEDS: metFORMIN 500 MG TAB PO SCH ×2 (08:10→18:41)
[2018-01-19] MEDS: ATORVASTATIN 20 MG TAB PO SCH (08:10)
[2018-01-19] MEDS: INSULIN ASPART 100 UNIT/ML 1 ML 10 ML VIAL SQ SCH ×5 (08:10→18:44)
[2018-01-19] MEDS: INSULIN DETEMIR 100 UNIT/ML 10 ML VIAL SQ SCH (08:10)
[2018-01-19] MEDS: PANTOPRAZOLE 40 MG TABLET PO SCH (08:10)
[2018-01-19] MEDS: SODIUM CHLORIDE 0.9% 1,000 ML IV SCH (08:11)
[2018-01-19] MEDS: NYSTATIN 100,000 UNIT/GM POWD 15 GM TOPICAL SCH ×2 (08:12→14:40)
[2018-01-19 09:31] LABS: Basophils # (A) 0.1 k/uL (0-0.2); Basophils % (A) 1 %; Eosinophils # (A) 0.4 k/uL (0-0.7); Eosinophils % (A) 4 %; HGB 15.3 gm/dL (13.0-17.5); Lymphocytes # (A) 2.4 k/uL (1.0-4.8); Lymphocytes % (A) 25 %; MCH 30.1 pg (25.0-35.0); MCHC 33.3 g/dL (31.0-37.0); MCV 90.4 fL (80.0-100.0); Monocytes # (A) 0.7 k/uL (0-1.0); Monocytes % (A) 7 %; Neutrophils # (A) 6.2 k/uL (1.3-7.7); Neutrophils % (A) 63 %; Platelet Count 189 k/uL (150-450); RBC 5.09 m/uL (4.30-5.90); RDW 13.1 % (11.5-15.5); WBC 9.8 k/uL (3.8-10.6)
[2018-01-19 09:44] LABS: Anion Gap 7 mmol/L; Blood Urea Nitrogen 10 mg/dL (9-20); Calcium 8.3 mg/dL (8.4-10.2); Carbon Dioxide 24 mmol/L (22-30); Chloride 105 mmol/L (98-107); Glucose 329 mg/dL (74-99); Potassium 4.3 mmol/L (3.5-5.1); Sodium 136 mmol/L (137-145)
[2018-01-19] MEDS: VANCOMYCIN 2,500 MG in SODIUM CHLORIDE 0.9% 500 ML 500 ML IVPB SCH (11:00)
--- NOTE | 2018-01-19 11:37 | P.PN ---
Progress Note - Text Progress Note Date: 01/19/18 Patient reexamined today. T-max last night 100.4. Patient states the area in the left groin is increased in size and has started to drain somewhat. White blood cell count today is normal. Exam reveals enlargement of the area of induration tenderness and erythema left groin. Small open wound with some serous type drainage. Options discussed with the patient. The patient clearly has not improved despite antibiotics overnight. Will plan incision and drainage today. Risks of bleeding, infection, wound formation, poor healing, potential need for additional surgeries were reviewed. He understands and wishes to proceed.
[2018-01-19 12:26] LABS: Glucose,Whole Blood 390 mg/dL (75-99)
[2018-01-19] MEDS: HYDROmorphone 1 MG/ML 1 ML SYRINGE IVP PRN ×2 (14:45→19:50)
[2018-01-19] MEDS ORDERED: IV FLUID CONTINUATION 1,000 ML IV ONE (15:11)
[2018-01-19 15:20] LABS: Glucose,Whole Blood 249 mg/dL (75-99)
--- NOTE | 2018-01-19 16:41 | PN ---
PROGRESS NOTE DATE OF SERVICE: 01/19/2018 This 47-year-old gentleman who was admitted with suprapubic cellulitis also had SIRS. The patient was suspected to have an abscess today, and Dr. Lehman is planning incision and drainage. No chest pain. No palpitations. No fever. On exam, alert and oriented x3. The pulse is 88, blood pressure 166/92, respiration 16, temperature 98.9, pulse ox 94% on room air. HEENT: Conjunctivae normal. NECK: No jugular venous distention. CARDIOVASCULAR SYSTEM: S1, S2 muffled. RESPIRATORY SYSTEM: Breath sounds diminished at the bases. A few scattered rhonchi and crackles. ABDOMEN: Soft, non-tender. LEGS: No edema. No swelling. NERVOUS SYSTEM: No focal deficit. cellulitis and possibly abscess present. LABS: Accu-Cheks 390, 249. ASSESSMENT: 1. Suprapubic cellulitis with possible abscess and systemic inflammatory response syndrome, present on admission. 2. Hyponatremia. 3. Diabetes mellitus, type 2, with uncontrolled hyperglycemia. 4. History of noncompliance. 5. Hyperlipidemia. 6. Hypertension. 7. History of peripheral neuropathy. 8. History of degenerative joint disease. 9. History of gout. 10.History of depression. 11.History of bilateral carpal tunnel syndrome. 12.Anxiety, bipolar, depression. 13.Schizophrenia. 14.History of cocaine and marijuana. RECOMMENDATIONS AND DISCUSSION: I recommend to continue current medication, continue with the monitoring, symptomatic treatment. Increase the dose of insulin. Add pre-meal insulin. Discussed with Dr. Lehman; possible incision and drainage. Guarded prognosis because of multiple complex medical issues. Further recommendations to follow. MMODL / IJN: [id number] / MTDD
[2018-01-19] MEDS ORDERED: MIDAZOLAM 2 MG/2 ML VIAL ONE (16:48)
[2018-01-19] MEDS ORDERED: KETAMINE 10 MG/ML 20 ML VIAL ONE (16:48)
[2018-01-19] MEDS ORDERED: fentaNYL (PF) 50 MCG/ML 2 ML AMP ONE (16:48)
[2018-01-19] MEDS ORDERED: PROPOFOL 10 MG/ML 20 ML VIAL IV ONE (16:48)
[2018-01-19] MEDS ORDERED: BUPIVACAIN-EPI 0.25%-1:200,000 30 ML VIAL SQ ONE ×2 (17:06)
[2018-01-19] MEDS ORDERED: SODIUM CHLORIDE 0.9% 1,000 ML IV ONE (17:14)
--- NOTE | 2018-01-19 17:28 | P.OP ---
Date of Procedure: 01/19/18 Procedure(s) Performed: PREOPERATIVE DIAGNOSIS: Left groin abscess POSTOPERATIVE DIAGNOSIS: Same PROCEDURE: Incision and drainage left groin abscess SURGEON: Fallon EBL: Minimal ANESTHESIA: Local plus sedation COMPLICATIONS: None OPERATIVE PROCEDURE: Left groin prepped and draped in the usual sterile fashion. Skin localized with Marc[place]. Elliptical incision was made encompassing the necrotic skin centrally. Incision length 9 cm with diameter of skin 2.5 cm. Subcutaneous tissues bluntly and sharply dissected. Purulent fluid evacuated. Wound tracking to a depth of approximately 6-7 cm. There does not appear to be any tracking peripherally. Cultures taken. Wound irrigated with saline. Wound then packed with Abhay roll moistened with saline. Sterile dressings applied. DISPOSITION: Stable to recovery room
[2018-01-19] MEDS: HYDROmorphone 1 MG/ML 1 ML SYRINGE IVP ONE ×2 (18:00→18:14)
[2018-01-19 18:54] LABS: Glucose,Whole Blood 190 mg/dL (75-99)
[2018-01-19] MEDS: HYDROcodone/APAP 5-325MG 1 EACH TAB PO PRN (22:34)
[2018-01-19] MEDS ORDERED: VANCOMYCIN TROUGH DUE 1 EACH MISC MISCELLANE ONE (23:00)
--- NOTE | 2018-01-19 23:17 | PN ---
PROGRESS NOTE DATE OF SERVICE: 01/19/2018. REASON FOR FOLLOWUP: Left groin abscess. INTERVAL HISTORY: The patient is currently afebrile. His is still complaining of significant pain to the left groin area. No chest pain. No shortness of breath. No cough. No abdominal pain. No diarrhea. EXAMINATION: Blood pressure 124/77 with a pulse of 90, temperature of 99, he is 94% on room air. General description is a middle-aged male lying in bed in no distress. Respiratory system: Unlabored breathing. Clear to auscultation anteriorly. Heart S1, S2. Regular rate and rhythm. ABDOMEN: Soft. No tenderness. Left groin swelling and redness, but no drainage. LABS: Hemoglobin is 15.3 with white count 9.8. BUN of 10, creatinine 0.56. DIAGNOSTIC IMPRESSION AND PLAN: Patient with left groin abscess, culture with Staph aureus and Streptococcus agalactiae. The patient currently covered with vancomycin, Zosyn. He is status post drainage of the abscess in the OR today. We will wait for the deep culture to finalize before adjusting medications further. Continue supportive care. MMODL / IJN: [id number] /
[2018-01-19 23:56] LABS: Glucose,Whole Blood 252 mg/dL (75-99)
[2018-01-20] MEDS: INSULIN DETEMIR 100 UNIT/ML 10 ML VIAL SQ SCH ×3 (01:16→22:43)
[2018-01-20] MEDS: INSULIN ASPART 100 UNIT/ML 1 ML 10 ML VIAL SQ SCH ×8 (01:16→22:42)
[2018-01-20] MEDS: VANCOMYCIN 2,500 MG in SODIUM CHLORIDE 0.9% 500 ML 500 ML IVPB SCH (01:17)
[2018-01-20] MEDS: PIPERACILLIN-TAZOBACTAM 3.375 GM in SODIUM CHLORIDE 0.9% 100 ML IVPB SCH ×3 (01:18→15:04)
[2018-01-20] MEDS: HYDROmorphone 1 MG/ML 1 ML SYRINGE IVP PRN ×5 (01:22→22:45)
[2018-01-20] MEDS: HEPARIN SODIUM,PORCINE 5,000 UNIT/ML 1 ML VIAL SQ SCH ×3 (01:24→15:04)
[2018-01-20] MEDS: GABAPENTIN 400 MG CAP PO SCH ×4 (01:26→20:16)
[2018-01-20] MEDS: SODIUM CHLORIDE 0.9% 1,000 ML IV SCH ×3 (01:26→22:47)
[2018-01-20] MEDS: NYSTATIN 100,000 UNIT/GM POWD 15 GM TOPICAL SCH ×4 (01:27→22:45)
[2018-01-20 07:29] LABS: Glucose,Whole Blood 214 mg/dL (75-99)
[2018-01-20] MEDS: PANTOPRAZOLE 40 MG TABLET PO SCH (08:02)
[2018-01-20] MEDS: ATORVASTATIN 20 MG TAB PO SCH (08:02)
[2018-01-20] MEDS: ALLOPURINOL 300 MG TAB PO SCH (08:02)
[2018-01-20] MEDS: metFORMIN 500 MG TAB PO SCH ×2 (08:02→17:09)
[2018-01-20 08:04] LABS: Basophils # (A) 0.1 k/uL (0-0.2); Basophils % (A) 1 %; Eosinophils # (A) 0.3 k/uL (0-0.7); Eosinophils % (A) 3 %; HCT 45.8 % (39.0-53.0); HGB 14.8 gm/dL (13.0-17.5); Lymphocytes # (A) 2.6 k/uL (1.0-4.8); Lymphocytes % (A) 31 %; MCH 29.2 pg (25.0-35.0); MCHC 32.3 g/dL (31.0-37.0); MCV 90.4 fL (80.0-100.0); Monocytes # (A) 0.5 k/uL (0-1.0); Monocytes % (A) 6 %; Neutrophils # (A) 4.6 k/uL (1.3-7.7); Neutrophils % (A) 57 %; Platelet Count 207 k/uL (150-450); RBC 5.07 m/uL (4.30-5.90); RDW 13.1 % (11.5-15.5); WBC 8.1 k/uL (3.8-10.6)
[2018-01-20] MEDS: HYDROcodone/APAP 5-325MG 1 EACH TAB PO PRN ×3 (08:10→20:16)
[2018-01-20 08:29] LABS: Anion Gap 5 mmol/L; Blood Urea Nitrogen 10 mg/dL (9-20); Calcium 8.4 mg/dL (8.4-10.2); Carbon Dioxide 27 mmol/L (22-30); Chloride 105 mmol/L (98-107); Glucose 250 mg/dL (74-99); Potassium 4.2 mmol/L (3.5-5.1); Sodium 137 mmol/L (137-145)
[2018-01-20] MEDS: VANCOMYCIN 2,000 MG in SODIUM CHLORIDE 0.9% 500 ML 500 ML IVPB SCH ×2 (09:23→17:09)
[2018-01-20 11:48] LABS: Glucose,Whole Blood 247 mg/dL (75-99)
--- NOTE | 2018-01-20 12:23 | P.PN ---
Subjective Progress Note Date: 01/20/18 Principal diagnosis: Left groin abscess Patient doing better today. Pain is improved. T-max 99. White blood cell count 8.1. Objective - Vital Signs Vital signs: Vital Signs Temp 98 F 01/20/18 05:50 Pulse 78 01/20/18 05:50 Resp 20 01/20/18 05:50 BP 135/86 01/20/18 05:50 Pulse Ox 97 01/20/18 05:50 Intake & Output 01/19/18 01/20/18 01/20/18 18:59 06:59 18:59 Intake Total 1000 1540 Output Total 30 Balance 970 1540 Weight 147.4 kg Intake: IV 1000 Oral 1540 Output: Estimated Blood Loss 30 Other: Voiding Method Urinal Urinal # Voids 3 1 # Bowel Movements 1 0 1 - Exam Left groin incision site with minimal serosanguineous drainage, erythema and tenderness improved - Labs CBC & Chem 7: 01/20/18 07:44 01/20/18 07:44 Labs: Abnormal Lab Results - Last 24 Hours (Table) 01/19/18 01/19/18 01/19/18 Range/Units 12:25 15:19 18:41 Glucose (74-99) mg/dL POC Glucose (mg/dL) 390 H 249 H 190 H (75-99) mg/dL 01/19/18 01/20/18 01/20/18 Range/Units 23:53 07:27 07:44 Glucose 250 H (74-99) mg/dL POC Glucose (mg/dL) 252 H 214 H (75-99) mg/dL 01/20/18 Range/Units 11:46 Glucose (74-99) mg/dL POC Glucose (mg/dL) 247 H (75-99) mg/dL Microbiology - Last 24 Hours (Table) 01/19/18 13:00 Gram Stain - Preliminary Groin Wound Culture - Preliminary 01/19/18 13:00 Anaerobic Culture - Preliminary Groin 01/17/18 12:25 Blood Culture - Preliminary Blood No Growth after 48 hours 01/17/18 17:56 Urine Culture - Final Urine,Voided 01/18/18 06:20 Gram Stain - Preliminary Groin Wound Culture - Preliminary Strep agalactiae - (group b) Presumptive Staph aureus Assessment and Plan (1) Cellulitis of groin, left Narrative/Plan: Continue antibiotics per infectious disease. We'll have the patient shower today and then repacked dressing. Will follow. Current Visit: Yes Status: Acute Code(s): L03.314 - CELLULITIS OF GROIN SNOMED Code(s): 97461419
[2018-01-20 17:08] LABS: Glucose,Whole Blood 235 mg/dL (75-99)
[2018-01-20 21:35] LABS: Glucose,Whole Blood 124 mg/dL (75-99)
[2018-01-20] MEDS: TEMAZEPAM 15 MG CAP PO PRN (22:44)
--- NOTE | 2018-01-20 23:00 | PN ---
PROGRESS NOTE DATE OF SERVICE: 01/20/2018 DATE OF SERVICE: This 47-year-old gentleman who was admitted with suprapubic cellulitis had incision and drainage by Dr. Lehman yesterday. The cultures are growing strep agalactiae group B and Staph aureus, which is MSSA. The patient on broad spectrum IV antibiotics. The patient also had uncontrolled blood sugars also which is still elevated at this time at 235. PAST MEDICAL HISTORY: Reviewed. REVIEW OF SYSTEMS: CARDIOVASCULAR: No angina. RESPIRATORY: As mentioned earlier. GI: No nausea or vomiting or diarrhea. : No dysuria. Central nervous system: No numbness or weakness. CURRENT MEDICATIONS: Reviewed and include NovoLog 5 units t.i.d. with meals and Lantus 50 subcu b.i.d. Other medications are: 1. Tylenol 500 mg q.6h p.r.n. 2. [place] 5 mg q.4. 3. Zyloprim 300 mg. 4. Xanax 0.5 t.i.d. 5. Lipitor 20 mg. 6. Neurontin 400 mg q.h.s. 7. Heparin 5000 subcu b.i.d. 8. Dilaudid 0.2 q.4h p.r.n. 9. NovoLog scale. 10.Glucophage 500 mg p.o. b.i.d. 11.Narcan. 12.Mycostatin. 13.Zofran. 14.Protonix. PHYSICAL EXAM: Patient is alert, oriented x3. The pulse is 81, blood pressure 99/64, respiration 18, temperature 98.4, pulse ox 92% on room air. HEENT: Conjunctivae normal. Oral mucosa moist. Neck is no jugular venous distention. No carotid bruit. No lymph node enlargement. Cardiovascular: S1, S2 muffled. RESPIRATORY: Breath sounds diminished in the bases. Bilateral scattered rhonchi and crackles. ABDOMEN: Soft, obese and nontender. status post incision and drainage. Legs no edema. No swelling. NERVOUS SYSTEM: Higher functions as mentioned earlier. Moves all four limbs. No focal deficits. Lymphatics: No lymph nodes palpable in the neck, axillae or groin. SKIN: No ulcer, rash or bleeding. LABS: CBC, BMP within normal limits. ASSESSMENT: 1. Suprapubic cellulitis with possible abscess and SARS status post incision and drainage with MSSA and strep agalactiae Group B. 2. Hyponatremia. 3. Diabetes type 2, uncontrolled with hyperglycemia. 4. History of noncompliance. 5. Hyperlipidemia. 6. Hypertension. 7. History of peripheral neuropathy. 8. History of degenerative joint disease. 9. History of gout. 10.History of depression. 11.History of bilateral carpal tunnel syndrome. 12.History of anxiety, bipolar depression. 13.History of schizophrenia. 14.History of cocaine, marijuana. RECOMMENDATIONS AND DISCUSSION: Recommend to continue current medications, management and symptomatic treatment. Continue with IV antibiotics. Continue the pain medications. I would also recommend the insulin to 10 units with meals plus K and as well as Lantus 60 units twice daily. The overall prognosis extremely guarded because of multiple complex medical issues. Further recommendations to follow. MMODL / IJN: [id number] / MTDD
[2018-01-21] MEDS: PIPERACILLIN-TAZOBACTAM 3.375 GM in SODIUM CHLORIDE 0.9% 100 ML IVPB SCH ×3 (00:32→15:38)
[2018-01-21] MEDS: HEPARIN SODIUM,PORCINE 5,000 UNIT/ML 1 ML VIAL SQ SCH ×3 (00:35→15:39)
[2018-01-21] MEDS: VANCOMYCIN 2,000 MG in SODIUM CHLORIDE 0.9% 500 ML 500 ML IVPB SCH ×2 (01:26→07:51)
[2018-01-21] MEDS: HYDROmorphone 1 MG/ML 1 ML SYRINGE IVP PRN ×5 (04:24→22:06)
[2018-01-21 07:19] LABS: Glucose,Whole Blood 198 mg/dL (75-99)
[2018-01-21 07:40] LABS: Basophils % (A) 1 %; Eosinophils # (A) 0.4 k/uL (0-0.7); Eosinophils % (A) 6 %; HCT 44.6 % (39.0-53.0); HGB 14.3 gm/dL (13.0-17.5); Lymphocytes # (A) 2.5 k/uL (1.0-4.8); Lymphocytes % (A) 34 %; MCV 90.7 fL (80.0-100.0); Mean Platelet Volume 8.2; Monocytes # (A) 0.5 k/uL (0-1.0); Monocytes % (A) 6 %; Neutrophils # (A) 3.8 k/uL (1.3-7.7); Neutrophils % (A) 51 %; Platelet Count 231 k/uL (150-450); RBC 4.92 m/uL (4.30-5.90); RDW 13.4 % (11.5-15.5); WBC 7.4 k/uL (3.8-10.6)
[2018-01-21] MEDS: ATORVASTATIN 20 MG TAB PO SCH (07:52)
[2018-01-21] MEDS: metFORMIN 500 MG TAB PO SCH ×2 (07:52→17:33)
[2018-01-21] MEDS: ALLOPURINOL 300 MG TAB PO SCH (07:52)
[2018-01-21] MEDS: PANTOPRAZOLE 40 MG TABLET PO SCH (07:52)
[2018-01-21] MEDS: GABAPENTIN 400 MG CAP PO SCH ×3 (07:52→22:11)
[2018-01-21] MEDS: INSULIN ASPART 100 UNIT/ML 1 ML 10 ML VIAL SQ SCH ×7 (07:53→22:10)
[2018-01-21] MEDS: INSULIN DETEMIR 100 UNIT/ML 10 ML VIAL SQ SCH ×2 (07:54→22:08)
[2018-01-21] MEDS: NYSTATIN 100,000 UNIT/GM POWD 15 GM TOPICAL SCH ×3 (07:54→22:13)
[2018-01-21 08:00] LABS: Anion Gap 3 mmol/L; Blood Urea Nitrogen 10 mg/dL (9-20); Calcium 8.5 mg/dL (8.4-10.2); Carbon Dioxide 30 mmol/L (22-30); Chloride 108 mmol/L (98-107); Glucose 191 mg/dL (74-99); Potassium 4.7 mmol/L (3.5-5.1); Sodium 141 mmol/L (137-145)
--- NOTE | 2018-01-21 10:04 | P.PN ---
Subjective Progress Note Date: 01/21/18 Principal diagnosis: Left groin abscess Patient states his pain is well-controlled unless he is moving around quite a bit. He showered already this morning. He is afebrile. T-max 99.1. White blood cell 7.4. Objective - Vital Signs Vital signs: Vital Signs Temp 97.6 F 01/21/18 07:00 Pulse 74 01/21/18 07:00 Resp 16 01/21/18 07:00 BP 108/65 01/21/18 07:00 Pulse Ox 93 L 01/21/18 07:00 Intake & Output 01/20/18 01/21/18 01/21/18 18:59 06:59 18:59 Intake Total 1400 Balance 1400 Intake: Oral 1400 Other: Voiding Method Urinal Urinal # Voids 0 # Bowel Movements 1 - Exam Left groin induration persists, tenderness improved, less erythema, wound clean - Labs CBC & Chem 7: 01/21/18 07:25 01/21/18 07:25 Labs: Abnormal Lab Results - Last 24 Hours (Table) 01/20/18 01/20/18 01/20/18 Range/Units 11:46 17:06 21:29 Chloride (98-107) mmol/L Glucose (74-99) mg/dL POC Glucose (mg/dL) 247 H 235 H 124 H (75-99) mg/dL 01/21/18 01/21/18 Range/Units 07:15 07:25 Chloride 108 H (98-107) mmol/L Glucose 191 H (74-99) mg/dL POC Glucose (mg/dL) 198 H (75-99) mg/dL Microbiology - Last 24 Hours (Table) 01/19/18 13:00 Gram Stain - Preliminary Groin Wound Culture - Preliminary 01/17/18 12:25 Blood Culture - Preliminary Blood No Growth after 72 hours 01/18/18 06:20 Gram Stain - Final Groin Wound Culture - Final Strep agalactiae - (group b) Staphylococcus aureus Assessment and Plan (1) Cellulitis of groin, left Narrative/Plan: Continue local wound care. Follow cultures. Continue antibiotics. Current Visit: Yes Status: Acute Code(s): L03.314 - CELLULITIS OF GROIN SNOMED Code(s): 41316323
[2018-01-21] MEDS: HYDROcodone/APAP 5-325MG 1 EACH TAB PO PRN ×2 (10:15→17:32)
[2018-01-21] MEDS: SODIUM CHLORIDE 0.9% 1,000 ML IV SCH (11:25)
[2018-01-21 12:01] LABS: Glucose,Whole Blood 201 mg/dL (75-99)
[2018-01-21 17:06] LABS: Glucose,Whole Blood 168 mg/dL (75-99)
[2018-01-21] MEDS: ceFAZolin IN SWFI 2 GM/20 ML SYRINGE IVP SCH (17:39)
[2018-01-21] MEDS: ONDANSETRON 4 MG/2 ML VIAL IVP PRN (17:44)
--- NOTE | 2018-01-21 19:36 | PN ---
PROGRESS NOTE DATE OF SERVICE: 01/21/2018 This 47-year-old gentleman admitted with suprapubic cellulitis and as well as MSSA and strep agalactiae group B, is being closely monitored. No chest pain. No palpitations. No fever. PHYSICAL EXAM: Alert and oriented x3. Pulse 79, blood pressure 123/80, respirations 16, temp 97.6, pulse ox 94% on room air. HEENT: Conjunctivae normal. Oral mucosa moist. NECK: No jugular venous distention. No lymph node enlargement. CARDIOVASCULAR: S1, S2. RESPIRATORY: Diminished breath sounds at the bases. Bilateral scattered rhonchi and crackles. ABDOMEN: Soft, nontender. SUPRAPUBIC AREA: Cellulitis and abscess, status post incision and drainage. LEGS: No edema, no swelling. NERVOUS SYSTEM: No focal deficits. LAB STUDIES: CBC within normal limits. Accu-Cheks 198 and 201. ASSESSMENT: 1. Suprapubic cellulitis with possible abscess with a SIRS status post incision and drainage with MSSA and Streptococcus agalactiae group B. 2. Hyponatremia. 3. Diabetes type 2, uncontrolled with hyperglycemia. 4. History of noncompliance. 5. Hyperlipidemia. 6. Hypertension. 7. Gait dysfunction. 8. History of peripheral neuropathy. 9. History of degenerative joint disease. 10.History of gout. 11.History of depression. 12.History of bilateral carpal tunnel syndrome. 13.History of anxiety and bipolar depression. 14.History of cocaine and marijuana remotely. RECOMMENDATIONS: Recommend to continue current management, continue symptomatic treatment. At this time I recommend PT/OT evaluation and possible ECF rehab. Otherwise, long-term IV antibiotics per Infectious Disease. Guarded prognosis because of multiple complex medical issues. Further recommendations to follow. MMODL / IJN: [id number] /
[2018-01-21] MEDS ORDERED: VANCOMYCIN 2,250 MG in SODIUM CHLORIDE 0.9% 500 ML 500 ML IVPB SCH (20:00)
[2018-01-21 21:31] LABS: Glucose,Whole Blood 129 mg/dL (75-99)
[2018-01-21] MEDS: TEMAZEPAM 15 MG CAP PO PRN (22:06)
--- NOTE | 2018-01-21 22:34 | PN ---
PROGRESS NOTE DATE OF SERVICE: 01/21/2018. REASON FOR FOLLOWUP: Left groin abscess. INTERVAL HISTORY: The patient is afebrile has been breathing comfortably. Pain to the left groin is currently controlled with pain medication. Denies any chest pain, shortness of breath or cough. No abdominal pain, no diarrhea. EXAMINATION: Blood pressure 123/88, pulse of 79, temperature 97.6. He is 94% on room air. GENERAL DESCRIPTION: A middle-aged male lying in bed in no distress. RESPIRATORY SYSTEM: Unlabored breathing. Clear to auscultation anteriorly. HEART: S1, S2. Regular rate and rhythm. EXTREMITIES: Left groin wound is draining, surrounding redness improved, no drainage. LABS: Hemoglobin 14.8, white count 7.4 with a BUN of 10, creatinine 0.5. Culture positive for Streptococcus agalactiae and staph aureus MSSA. Blood culture has been negative. DIAGNOSTIC IMPRESSION AND PLAN: Patient with left groin abscess status post surgical drainage. In view of the extensive infection, the patient may benefit for short course of IV antibiotic therapy in the form of cefazolin. Antibiotic has been adjusted to cefazolin and clindamycin. Vanco and Zosyn have been discontinue. Local wound care to continue with interval packing. We will discuss with surgery. The patient will benefit from the wound VAC application. Continue supportive care. MMODL / IJN: [id number] /
[2018-01-22] MEDS: ceFAZolin IN SWFI 2 GM/20 ML SYRINGE IVP SCH ×5 (01:05→23:47)
[2018-01-22] MEDS: CLINDAMYCIN 900 MG in DEXTROSE 5% IN WATER 50 ML IVPB SCH ×8 (01:09→23:47)
[2018-01-22] MEDS: HEPARIN SODIUM,PORCINE 5,000 UNIT/ML 1 ML VIAL SQ SCH ×4 (01:13→23:47)
[2018-01-22] MEDS: HYDROcodone/APAP 5-325MG 1 EACH TAB PO PRN ×5 (01:17→21:29)
[2018-01-22] MEDS: HYDROmorphone 1 MG/ML 1 ML SYRINGE IVP PRN ×3 (04:45→22:33)
[2018-01-22] MEDS: SODIUM CHLORIDE 0.9% 1,000 ML IV SCH ×2 (04:57→15:54)
[2018-01-22 07:04] LABS: Glucose,Whole Blood 129 mg/dL (75-99)
[2018-01-22] MEDS: ALLOPURINOL 300 MG TAB PO SCH (08:03)
[2018-01-22] MEDS: metFORMIN 500 MG TAB PO SCH ×2 (08:03→17:33)
[2018-01-22] MEDS: PANTOPRAZOLE 40 MG TABLET PO SCH (08:03)
[2018-01-22] MEDS: GABAPENTIN 400 MG CAP PO SCH ×3 (08:03→21:29)
[2018-01-22] MEDS: ATORVASTATIN 20 MG TAB PO SCH (08:03)
[2018-01-22] MEDS: INSULIN ASPART 100 UNIT/ML 1 ML 10 ML VIAL SQ SCH ×7 (08:03→21:28)
[2018-01-22] MEDS: INSULIN DETEMIR 100 UNIT/ML 10 ML VIAL SQ SCH ×2 (08:04→21:28)
[2018-01-22] MEDS: NYSTATIN 100,000 UNIT/GM POWD 15 GM TOPICAL SCH ×3 (08:06→21:29)
[2018-01-22] MEDS: ONDANSETRON 4 MG/2 ML VIAL IVP PRN (09:32)
[2018-01-22 11:37] LABS: Anion Gap 4 mmol/L; Blood Urea Nitrogen 8 mg/dL (9-20); Calcium 8.5 mg/dL (8.4-10.2); Carbon Dioxide 29 mmol/L (22-30); Chloride 108 mmol/L (98-107); Glucose 172 mg/dL (74-99); Potassium 4.1 mmol/L (3.5-5.1); Sodium 141 mmol/L (137-145)
[2018-01-22 11:44] LABS: Basophils # (A) 0.1 k/uL (0-0.2); Basophils % (A) 1 %; Eosinophils # (A) 0.3 k/uL (0-0.7); Eosinophils % (A) 5 %; HCT 44.1 % (39.0-53.0); HGB 14.4 gm/dL (13.0-17.5); Lymphocytes # (A) 2.2 k/uL (1.0-4.8); Lymphocytes % (A) 30 %; MCH 29.8 pg (25.0-35.0); MCHC 32.7 g/dL (31.0-37.0); MCV 91.2 fL (80.0-100.0); Mean Platelet Volume 8.5; Monocytes # (A) 0.5 k/uL (0-1.0); Monocytes % (A) 7 %; Neutrophils % (A) 56 %; Platelet Count 234 k/uL (150-450); RBC 4.84 m/uL (4.30-5.90); RDW 13.4 % (11.5-15.5); WBC 7.2 k/uL (3.8-10.6)
[2018-01-22 12:29] LABS: Glucose,Whole Blood 227 mg/dL (75-99)
--- NOTE | 2018-01-22 16:50 | P.PN ---
Subjective Progress Note Date: 01/22/18 Principal diagnosis: Left groin abscess Patient states his pain is slightly better today. Still has some discomfort with ambulation. He is afebrile. Objective - Vital Signs Vital signs: Vital Signs Temp 97.6 F 01/22/18 14:09 Pulse 87 01/22/18 14:09 Resp 16 01/22/18 15:09 BP 141/92 01/22/18 14:09 Pulse Ox 96 01/22/18 14:09 Intake & Output 01/21/18 01/22/18 01/22/18 18:59 06:59 18:59 Weight 152 kg Other: Voiding Method Urinal # Voids 2 1 2 # Bowel Movements 1 - Exam Left groin wound clean, induration improved, still with mild tenderness, serosanguineous drainage - Labs CBC & Chem 7: 01/22/18 10:21 01/22/18 10:21 Labs: Abnormal Lab Results - Last 24 Hours (Table) 01/21/18 01/21/18 01/22/18 Range/Units 16:57 21:13 07:02 Chloride (98-107) mmol/L BUN (9-20) mg/dL Glucose (74-99) mg/dL POC Glucose (mg/dL) 168 H 129 H 129 H (75-99) mg/dL 01/22/18 01/22/18 Range/Units 10:21 12:24 Chloride 108 H (98-107) mmol/L BUN 8 L (9-20) mg/dL Glucose 172 H (74-99) mg/dL POC Glucose (mg/dL) 227 H (75-99) mg/dL Microbiology - Last 24 Hours (Table) 01/17/18 12:25 Blood Culture - Preliminary Blood No Growth after 120 hours 01/19/18 13:00 Anaerobic Culture - Preliminary Groin Assessment and Plan (1) Cellulitis of groin, left Narrative/Plan: Continue local wound care. Possible wound VAC if not transferred to inpatient psychiatry. Continue antibiotics per infectious disease. Recommend assisted care for antibiotics and wound care postdischarge. Current Visit: Yes Status: Acute Code(s): L03.314 - CELLULITIS OF GROIN SNOMED Code(s): 15488612
[2018-01-22 16:57] LABS: Glucose,Whole Blood 154 mg/dL (75-99)
--- NOTE | 2018-01-22 20:28 | PN ---
PROGRESS NOTE DATE OF SERVICE: 01/22/2018 This 47-year-old gentleman who was admitted with suprapubic cellulitis also had MSSA and strep agalactiae grown from the culture. The patient has significant erythema and pain at that time. The patient also had uncontrolled diabetes mellitus, hyperglycemia which is also being monitored and the patient also complains of gait dysfunction, ECF rehab is being planned. No chest pain. No palpitations. No fever. EXAM: Alert and oriented times three. Pulse is 87, blood pressure 140/92, respiration 16, temperature 97.2, pulse ox 98% on room air. HEENT: Conjunctivae normal. Neck: No jugular venous distention. Cardiovascular: S1, S2. Respirations: Breath sounds diminished in the bases. No rhonchi. No crackles. Abdomen is soft, suprapubic cellulitis. Central nervous system: No focal deficits. LABORATORY DATA: CBC within normal, sodium 140, potassium 4.1. ASSESSMENT: 1. Suprapubic cellulitis with possible abscess with severe acute respiratory syndrome status post incision and drainage with MSSA and Streptococcus agalactiae group B. 2. Hyponatremia. 3. Diabetes type 2 uncontrolled with hyperglycemia. 4. History of noncompliance. 5. Hyperlipidemia. 6. Hypertension. 7. Gait dysfunction. 8. Peripheral neuropathy. 9. History of degenerative joint disease. 10.History of gout. 11.History of depression. 12.History of bilateral carpal tunnel syndrome. 13.Anxiety, bipolar depression. 14.History of cocaine, marijuana remotely. RECOMMENDATIONS AND DISCUSSION: Recommend to continue current medication, continue to monitor. Symptomatic treatment. Otherwise at this time I recommend continue with IV antibiotics, PT/OT evaluation. Monitor blood sugars closely. Possible ECF rehab. Guarded prognosis. Further recommendations to follow. MMODL / IJN: [id number] /
[2018-01-22 20:41] LABS: Glucose,Whole Blood 157 mg/dL (75-99)
[2018-01-22] MEDS: TEMAZEPAM 15 MG CAP PO PRN (22:33)
--- NOTE | 2018-01-22 23:41 | PN ---
PROGRESS NOTE DATE OF SERVICE: 01/22/2018. REASON FOR FOLLOWUP: Left groin abscess. INTERVAL HISTORY: The patient is afebrile. He has been complaining of some pain into the left groin area though. Denies having any chest pain or shortness of breath, cough. No nausea, vomiting, or any diarrhea. EXAMINATION: Blood pressure is 159/82 with a pulse of 87, temperature 97.7. He is 95% on room air. General description is middle-aged male lying in bed in no distress. Respiratory system is unlabored breathing. Clear to auscultation anteriorly. Heart S1, S2. Regular rate and rhythm. ABDOMEN: Soft, no tenderness. His wound is currently packed. Surrounding cellulitis has decreased. No drainage. LABS: Hemoglobin 14.4, white count 7.2, BUN of 8, creatinine 0.79. DIAGNOSTIC IMPRESSION AND PLAN: Patient with Streptococcus agalactiae and MSSA left groin abscess status post drainage. The patient is currently on cefazolin and Clinda that will continue with the plan to finish therapy with IV cefepime for at least 7-10 days. Local care will be transitioned to wound VAC. Continue supportive care. MMODL / IJN: [id number] /
[2018-01-23] MEDS: HYDROmorphone 1 MG/ML 1 ML SYRINGE IVP PRN (04:58)
[2018-01-23] MEDS: ceFAZolin IN SWFI 2 GM/20 ML SYRINGE IVP SCH ×3 (05:10→17:21)
[2018-01-23] MEDS: HYDROcodone/APAP 5-325MG 1 EACH TAB PO PRN ×3 (05:20→12:21)
[2018-01-23] MEDS: SODIUM CHLORIDE 0.9% 1,000 ML IV SCH (06:53)
[2018-01-23 07:27] LABS: Glucose,Whole Blood 134 mg/dL (75-99)
[2018-01-23] MEDS: ALLOPURINOL 300 MG TAB PO SCH (08:02)
[2018-01-23] MEDS: INSULIN DETEMIR 100 UNIT/ML 10 ML VIAL SQ SCH (08:02)
[2018-01-23] MEDS: PANTOPRAZOLE 40 MG TABLET PO SCH (08:02)
[2018-01-23] MEDS: ATORVASTATIN 20 MG TAB PO SCH (08:02)
[2018-01-23] MEDS: HEPARIN SODIUM,PORCINE 5,000 UNIT/ML 1 ML VIAL SQ SCH ×2 (08:02→17:17)
[2018-01-23] MEDS: metFORMIN 500 MG TAB PO SCH ×2 (08:03→17:19)
[2018-01-23] MEDS: CLINDAMYCIN 900 MG in DEXTROSE 5% IN WATER 50 ML IVPB SCH ×4 (08:03→17:16)
[2018-01-23] MEDS: GABAPENTIN 400 MG CAP PO SCH ×2 (08:03→17:17)
[2018-01-23] MEDS: INSULIN ASPART 100 UNIT/ML 1 ML 10 ML VIAL SQ SCH ×6 (08:04→17:18)
[2018-01-23] MEDS: NYSTATIN 100,000 UNIT/GM POWD 15 GM TOPICAL SCH ×2 (08:05→17:18)
[2018-01-23 08:21] VITALS: RESP 16
[2018-01-23 09:34] LABS: Basophils # (A) 0.1 k/uL (0-0.2); Basophils % (A) 1 %; Eosinophils # (A) 0.3 k/uL (0-0.7); Eosinophils % (A) 4 %; HCT 43.9 % (39.0-53.0); HGB 13.8 gm/dL (13.0-17.5); Lymphocytes # (A) 2.1 k/uL (1.0-4.8); Lymphocytes % (A) 27 %; MCH 29.2 pg (25.0-35.0); MCHC 31.5 g/dL (31.0-37.0); MCV 92.7 fL (80.0-100.0); Mean Platelet Volume 7.8; Monocytes # (A) 0.4 k/uL (0-1.0); Monocytes % (A) 6 %; Neutrophils # (A) 4.6 k/uL (1.3-7.7); Neutrophils % (A) 60 %; Platelet Count 249 k/uL (150-450); RBC 4.73 m/uL (4.30-5.90); RDW 13.4 % (11.5-15.5); WBC 7.6 k/uL (3.8-10.6)
[2018-01-23 10:17] LABS: Anion Gap 4 mmol/L; Blood Urea Nitrogen 8 mg/dL (9-20); Calcium 8.6 mg/dL (8.4-10.2); Carbon Dioxide 31 mmol/L (22-30); Chloride 107 mmol/L (98-107); Glucose 206 mg/dL (74-99); Potassium 4.3 mmol/L (3.5-5.1); Sodium 142 mmol/L (137-145)
[2018-01-23 11:48] LABS: Glucose,Whole Blood 187 mg/dL (75-99)
--- NOTE | 2018-01-23 12:02 | CDI ---
Last Revision, January 2017 Documentation Clarification Form Date: 01/23/2018 11:34:34 AM From: Kathy Licea RN, CCDS Admit Date: 01/17/2018 3:36:00 PM Patient Name: Maxwell Villarreal Visit Number: [id number] Discharge Date: ATTENTION: The Clinical Documentation Specialists (CDI) and [facility] Coding Staff appreciate your assistance in clarifying documentation. Please respond to the clarification below the line at the bottom and electronically sign. The CDI & [facility] Coding staff will review the response and follow-up if needed. Please note: Queries are made part of the Legal Health Record. If you have any questions, please contact the author of this message via ITS. Jose Angel Cabrera MD Per your operative note, a incision and drainage left groin abscess was performed on 01/19/18 Per your operative report "Subcutaneous tissues bluntly and sharply dissected". History/Risk Factors: Left groin abscess, Cellulitis, Diabetes mellitus, Hypertension Clinical Indicators: Present with pain and swelling of the left groin. There was an area of induration. 01/19/18 Patient states the area in the left groin has increased in size and has started to drain. and plans was made for incision and drainage. Treatment: Incision and drainage left groin Clindamycin IV Kefzol IV Dilaudid IV, [place] PO Five elements required for accurate and compliant documentation of a debridement : 1. Technique used (e.g., excisional, excised, cutting, etc.) 2. Instrument(s) used (e.g., scalpel, curette, etc.) 3. Nature of the tissue removed (e.g., necrotic, devitalized tissues, non- viable tissue, etc.) 4. Appearance and size of the wound (e.g., down to fresh bleeding tissue, 7cm x 10cm, etc.) 5. Depth of the debridement* (e.g., skin, subcutaneous tissue, fascia, muscle , bone, etc.) In order to capture the severity of condition and code the appropriate procedure ; could you please document the following: Excisional debridement (the removal of necrotic, devitalized tissue or slough by means of cutting away of tissue) Non-excisional debridement (the removal of necrotic, devitalized tissue or slough by means of flushing, brushing, or washing. (Irrigation) Other; please specify Unable to determine (no explanation for clinical findings) Please continue to document in your progress notes and discharge summary in order to capture severity of illness and risk of mortality. Include clinical findings that support your diagnosis. Debridement performed in an excisional manner/excisional debridement MTDD
--- NOTE | 2018-01-23 13:14 | P.PN ---
Subjective Progress Note Date: 01/23/18 Principal diagnosis: Left groin abscess Patient says his pain is improved. He says he is able walk without much difficulty at this time. No fevers. White blood cell count normal. Objective - Vital Signs Vital signs: Vital Signs Temp 97.7 F 01/23/18 07:00 Pulse 72 01/23/18 07:00 Resp 16 01/23/18 08:07 BP 115/78 01/23/18 07:00 Pulse Ox 95 01/23/18 07:00 Intake & Output 01/22/18 01/23/18 01/23/18 18:59 06:59 18:59 Weight 152 kg Other: Voiding Method Toilet # Voids 2 2 # Bowel Movements 1 - Exam Left groin induration improved, serous drainage present, minimal tenderness - Labs CBC & Chem 7: 01/23/18 09:01 01/23/18 09:01 Labs: Abnormal Lab Results - Last 24 Hours (Table) 01/22/18 01/22/18 01/23/18 Range/Units 16:40 20:36 07:26 Carbon Dioxide (22-30) mmol/L BUN (9-20) mg/dL Glucose (74-99) mg/dL POC Glucose (mg/dL) 154 H 157 H 134 H (75-99) mg/dL 01/23/18 01/23/18 Range/Units 09:01 11:46 Carbon Dioxide 31 H (22-30) mmol/L BUN 8 L (9-20) mg/dL Glucose 206 H (74-99) mg/dL POC Glucose (mg/dL) 187 H (75-99) mg/dL Microbiology - Last 24 Hours (Table) 01/19/18 13:00 Gram Stain - Final Groin Wound Culture - Final Strep agalactiae - (group b) 01/17/18 12:25 Blood Culture - Preliminary Blood No Growth after 120 hours Assessment and Plan (1) Cellulitis of groin, left Narrative/Plan: Continue IV antibiotics. Wound VAC placement today. Stable for transfer to rehab. Current Visit: Yes Status: Acute Code(s): L03.314 - CELLULITIS OF GROIN SNOMED Code(s): 26563819
[2018-01-23] MEDS ORDERED: HYDROcodone/APAP 7.5-325MG 1 EACH TAB PO PRN (14:49)
[2018-01-23 16:05] VITALS: BP 154/89; PULSE 78; TEMP 99.4
--- NOTE | 2018-01-23 16:08 | P.PN ---
Subjective Progress Note Date: 01/23/18 Principal diagnosis: alcohol and major depression States suicidal Objective - Vital Signs Vital signs: Vital Signs Temp 99.4 F 01/23/18 15:00 Pulse 78 01/23/18 15:00 Resp 16 01/23/18 15:42 BP 154/89 01/23/18 15:00 Pulse Ox 96 01/23/18 15:00 Intake & Output 01/22/18 01/23/18 01/23/18 18:59 06:59 18:59 Weight 152 kg Other: Voiding Method Toilet # Voids 2 2 3 # Bowel Movements 1 - Labs CBC & Chem 7: 01/23/18 09:01 01/23/18 09:01 Labs: Abnormal Lab Results - Last 24 Hours (Table) 01/22/18 01/22/18 01/23/18 Range/Units 16:40 20:36 07:26 Carbon Dioxide (22-30) mmol/L BUN (9-20) mg/dL Glucose (74-99) mg/dL POC Glucose (mg/dL) 154 H 157 H 134 H (75-99) mg/dL 01/23/18 01/23/18 Range/Units 09:01 11:46 Carbon Dioxide 31 H (22-30) mmol/L BUN 8 L (9-20) mg/dL Glucose 206 H (74-99) mg/dL POC Glucose (mg/dL) 187 H (75-99) mg/dL Microbiology - Last 24 Hours (Table) 01/17/18 12:25 Blood Culture - Final Blood No Growth after 144 hours 01/19/18 13:00 Gram Stain - Final Groin Wound Culture - Final Strep agalactiae - (group b) Assessment and Plan (1) Depression Current Visit: No Status: Chronic Priority: Low Code(s): F32.9 - MAJOR DEPRESSIVE DISORDER, SINGLE EPISODE, UNSPECIFIED SNOMED Code(s): 19940311 (2) Mood disorder Current Visit: No Status: Chronic Priority: Low Code(s): F39 - UNSPECIFIED MOOD [AFFECTIVE] DISORDER SNOMED Code(s): 22653059276075 Plan: social work to transfer inpatient our unit is full at present time
--- NOTE | 2018-01-23 16:11 | P.DS ---
Providers Date of admission: 01/17/18 15:36 Expected date of discharge: 01/23/18 Attending physician: MD Dr. Chino Trujillo Consults: 01/17/18 17:22 Consult Physician Routine Consulting Provider: Lisa Kemp Consult Reason/Comments: cellulitis Do you want consulting provider notified?: Yes 01/17/18 19:34 Consult Physician Routine Consulting Provider: Orlando Lamb Consult Reason/Comments: depression Do you want consulting provider notified?: Yes 01/18/18 15:53 Consult Physician Routine Consulting Provider: Jose Angel Lehman Consult Reason/Comments: abscess, ? drainage Do you want consulting provider notified?: Yes Primary care physician: Rachana Harper Hospital Course: Final diagnoses -Suprapubic cellulitis, with abscess, status post I&D with MSSA and Streptococcus agalactiae Group B - acute respiratory syndrome -Hypermature -Diabetes type 2 with hyperglycemia -History of noncompliance -Gait dysfunction -Bipolar depression Hospital course: This is a 47-year-old gentleman admitted with suprapubic cellulitis,with MSSA and Streptococcus agalactiae Group B, uncontrolled diabetes mellitus and multiple other medical issues. Evaluated by psychiatry, infectious disease and surgery. Status post I&D. Maintained on IV antibiotics as per infectious disease. Wound VAC applied. Significant clinical improvement. Patient has been cleared by infectious disease, surgery and psychiatry for discharge to subacute rehab. Patient is being discharged to [facility] subacute rehab in a stable condition with guarded prognosis. General: Alert and intensity, no acute distress.CV: Regular S1 and S2.LUNGS: Bilateral bases diminished, no crackles, no wheezes. ABD: Soft, nontender, positive bowel sounds. Neuro: No focal deficits The impression and plan of care has been dictated as directed. Dr.: I performed a history and examination of this patient, discussed the same with the dictator. I agree with the dictator's note ,documented as a scribe. Any additional findings or plans will be noted. Time taken: 35 minutes Patient Condition at Discharge: Stable Plan - Discharge Summary Discharge Rx Participant: Yes New Discharge Prescriptions: New ceFAZolin [Kefzol] 2 gm IVP Q8HR #30 vial Acetaminophen Tab [Tylenol] 500 mg PO Q6HR PRN tab PRN Reason: Fever and/ or Mild Pain Atorvastatin [Lipitor] 20 mg PO DAILY tab Gabapentin [Neurontin] 400 mg PO TID cap HYDROcodone/APAP 7.5-325MG [[place] 7.5-325] 1 each PO Q4H PRN #12 tab PRN Reason: Pain Insulin Aspart [NovoLOG (formulary)] 12 unit SQ AC-TID vial INSULIN LISPRO (HumaLOG) [humaLOG] 0 unit SQ ACHS #1 vial Nystatin 100,000 Unit/gm Powd [Mycostatin Powder] 1 applic TOPICAL TID applic Pantoprazole [Protonix] 40 mg PO AC-BRKFST tablet. Allopurinol [Zyloprim] 300 mg PO DAILY tab Insulin Detemir [Levemir] 60 unit SQ BID syr metFORMIN HCL [Glucophage] 1,000 mg PO BID-W/MEALS tab Discharge Medication List ceFAZolin [Kefzol] 2 gm IVP Q8HR #30 vial 01/22/18 [Rx] Acetaminophen Tab [Tylenol] 500 mg PO Q6HR PRN tab 01/23/18 [Rx] Allopurinol [Zyloprim] 300 mg PO DAILY tab 01/23/18 [Rx] Atorvastatin [Lipitor] 20 mg PO DAILY tab 01/23/18 [Rx] Gabapentin [Neurontin] 400 mg PO TID cap 01/23/18 [Rx] HYDROcodone/APAP 7.5-325MG [[place] 7.5-325] 1 each PO Q4H PRN #12 tab 01/23/18 [ Rx] INSULIN LISPRO (HumaLOG) [humaLOG] 0 unit SQ ACHS #1 vial 01/23/18 [Rx] Insulin Aspart [NovoLOG (formulary)] 12 unit SQ AC-TID vial 01/23/18 [Rx] Insulin Detemir [Levemir] 60 unit SQ BID syr 01/23/18 [Rx] Nystatin 100,000 Unit/gm Powd [Mycostatin Powder] 1 applic TOPICAL TID applic 01/23/18 [Rx] Pantoprazole [Protonix] 40 mg PO AC-BRKFST tablet. 01/23/18 [Rx] metFORMIN HCL [Glucophage] 1,000 mg PO BID-W/MEALS tab 01/23/18 [Rx] Follow up Appointment(s)/Referral(s): CHUYITA, Dr. Psychiatry [Other] - 1 Week Meredith Reich MD [Primary Care Provider] - 3 Days (after dc from [facility]) Desean Yang MD [STAFF PHYSICIAN] - 1 Week Jose Angel Lehman MD [Medical Doctor] - 1 Week Lisa Kemp MD [STAFF PHYSICIAN] - 10 Days Activity/Diet/Wound Care/Special Instructions: [facility] wound Vac antibiotics as per ID consistant carb diet cbc,bmp in 3 days
[2018-01-23] MEDS: ONDANSETRON 4 MG/2 ML VIAL IVP PRN (17:28)
--- NOTE | 2018-01-23 22:18 | PN ---
PROGRESS NOTE DATE OF SURGERY: 01/23/2018 REASON FOR FOLLOWUP: Left groin abscess. INTERVAL HISTORY: The patient is afebrile. He was seen on rounds early this afternoon. He was breathing comfortably. Denied having any chest pain or shortness of breath or cough. No significant pain to the left groin area or any diarrhea. PHYSICAL EXAMINATION: Blood pressure 154/89 with a pulse of 78, temperature 99.4. He is 96% on room air. General description is a middle-aged male up in the room in no distress. RESPIRATORY SYSTEM: Unlabored breathing. Clear to auscultation anteriorly. HEART: S1, S2. Regular rate and rhythm. ABDOMEN: Soft. No tenderness. LABS: Hemoglobin is 13.8, white count 7.6, BUN of 8, creatinine 0.81. DIAGNOSTIC IMPRESSION AND PLAN: Patient with left groin abscess and cellulitis, culture with Streptococcus agalactiae and methicillin-susceptible Staphylococcus aeruginosa. He did get a midline and will continue with IV cefazolin 2 grams q.8 for 10 days. Local care with wound V.A.C., continuous pressure of 125 mmHg with black foam and followup in the wound care center next week. Continue supportive care. MMODL / IJN: [id number] /
== END 2018-01-23 18:00 | DRG 571 ==
LOC: EC 11:49 → 4MS4W 15:36
PROVIDERS: ADMIT Internal Medicine; ATTEND Internal Medicine
PROC: 0JBM0ZZ Excision of Left Upper Leg Subcutaneous Tissue and Fascia, Open Approach (ICD-10-PCS; principal; 2018-01-19 07:30)
DX: L02.214 Cutaneous abscess of groin (principal); E87.1 Hypo-osmolality and hyponatremia; Z68.42 Body mass index [BMI] 45.0-49.9, adult; F31.30 Bipolar disorder, current episode depressed, mild or moderate severity, unspecified; L03.314 Cellulitis of groin; E11.65 Type 2 diabetes mellitus with hyperglycemia; E11.42 Type 2 diabetes mellitus with diabetic polyneuropathy; E78.5 Hyperlipidemia, unspecified; I10 Essential (primary) hypertension; A49.01 Methicillin susceptible Staphylococcus aureus infection, unspecified site; B95.1 Streptococcus, group B, as the cause of diseases classified elsewhere; T38.3X6A Underdosing of insulin and oral hypoglycemic [antidiabetic] drugs, initial encounter; F20.9 Schizophrenia, unspecified; F41.9 Anxiety disorder, unspecified; G56.03 Carpal tunnel syndrome, bilateral upper limbs; E66.9 Obesity, unspecified; M79.3 Panniculitis, unspecified; M19.90 Unspecified osteoarthritis, unspecified site; R26.2 Difficulty in walking, not elsewhere classified; Z91.128 Patient's intentional underdosing of medication regimen for other reason; Z87.81 Personal history of (healed) traumatic fracture; Z87.39 Personal history of other diseases of the musculoskeletal system and connective tissue; Z88.8 Allergy status to other drugs, medicaments and biological substances; Z83.3 Family history of diabetes mellitus; Z82.49 Family history of ischemic heart disease and other diseases of the circulatory system; Z82.3 Family history of stroke
CPT/HCPCS: 36415; 36569; 72193; 77001; 80048; 80053; 80202; 80306; 81003; 83605; 85025; 85610; 85730; 87040; 87070; 87075; 87077; 87086; 87186; 87205; 96361; 96365; 96375; 96376; 99284

== ENCOUNTER 2018-05-11 17:37 | Emergency (ER) | payer MEDICARE, OTHER ==
[2018-05-11 17:48] VITALS: RESP 16; TEMP 98.2
--- NOTE | 2018-05-11 19:04 | ED ---
Psych HPI - General Chief Complaint: Psychiatric Symptoms Stated Complaint: suicidal Time Seen by Provider: 05/11/18 17:51 Source: patient, RN notes reviewed Mode of arrival: ambulatory Limitations: no limitations - History of Present Illness Initial Comments: 47-year-old male presents emergency Department with chief complaint of depression, suicidal ideation. Patient states he has been sleeping nonstop states that he wakes up and feels very depressed and suicidal. He does admit to crack cocaine use. Patient denies any alcohol abuse at this time. Denies any physical complaints. Patient states she is on psychiatric medications are not helping. - Related Data Home Medications Medication Instructions Recorded Confirmed ARIPiprazole [Abilify] 20 mg PO DAILY 05/11/18 05/11/18 DULoxetine HCL [Cymbalta] 20 mg PO DAILY 05/11/18 05/11/18 Empagliflozin/Linagliptin 1 tab PO DAILY 05/11/18 05/11/18 [Glyxambi 25 mg-5 mg Tablet] Famotidine [Pepcid] 1 - 2 tab PO DAILY PRN 05/11/18 05/11/18 Furosemide [Lasix] 20 mg PO DAILY 05/11/18 05/11/18 Insulin Aspart [NovoLOG Flexpen] 40 unit SQ AC-TID 05/11/18 05/11/18 Insulin Detemir [Levemir Flextouch] 80 unit SQ BID 05/11/18 05/11/18 Potassium Chloride ER [K-Dur 20] 20 meq PO DAILY 05/11/18 05/11/18 Prazosin [Minipress] 1 mg PO HS 05/11/18 05/11/18 Zolpidem [Ambien] 10 mg PO HS 05/11/18 05/11/18 buPROPion HCL [Wellbutrin XL] 300 mg PO DAILY 05/11/18 05/11/18 Previous Rx's Medication Instructions Recorded Allopurinol [Zyloprim] 300 mg PO DAILY tab 01/23/18 Atorvastatin [Lipitor] 20 mg PO DAILY tab 01/23/18 Gabapentin [Neurontin] 400 mg PO TID cap 01/23/18 Pantoprazole [Protonix] 40 mg PO AC-BRKFST tablet. 01/23/18 metFORMIN HCL [Glucophage] 1,000 mg PO BID-W/MEALS tab 01/23/18 Allergies Allergy/AdvReac Type Severity Reaction Status Date / Time ibuprofen [From Motrin] Allergy Rash/Hives Verified 05/11/18 18:28 Review of Systems ROS Statement: Those systems with pertinent positive or pertinent negative responses have been documented in the HPI. ROS Other: All systems not noted in ROS Statement are negative. Past Medical History Past Medical History: Diabetes Mellitus, Hyperlipidemia, Hypertension Additional Past Medical History / Comment(s): 01/17/18 pt wants flu vaccine while here. other hx includes:neuropathy,arthritis gout, depression.in past broke lt foot(sx ), myron carpal tunnel. History of Any Multi-Drug Resistant Organisms: None Reported Additional Past Surgical History / Comment(s): lasik eye sx ,left foot surgery. to reprair break-"has 2 plates and 16 screws" Past Anesthesia/Blood Transfusion Reactions: No Reported Reaction Past Psychological History: Anxiety, Bipolar, Depression, Schizophrenia Smoking Status: Never smoker Past Alcohol Use History: None Reported Past Drug Use History: Cocaine, Marijuana - Past Family History Mother Family Medical History: Cancer, Diabetes Mellitus Father Family Medical History: Myocardial Infarction (OR) Additional Family Medical History / Comment(s): stroke General Exam Limitations: no limitations General appearance: alert, in no apparent distress Head exam: Present: atraumatic, normocephalic, normal inspection Eye exam: Present: normal appearance, PERRL, EOMI. Absent: scleral icterus, conjunctival injection, periorbital swelling Respiratory exam: Present: normal lung sounds bilaterally. Absent: respiratory distress, wheezes, rales, rhonchi, stridor Cardiovascular Exam: Present: regular rate, normal rhythm, normal heart sounds. Absent: systolic murmur, diastolic murmur, rubs, gallop, clicks GI/Abdominal exam: Present: soft, normal bowel sounds. Absent: distended, tenderness, guarding, rebound, rigid Neurological exam: Present: alert, oriented X3, CN II-XII intact Psychiatric exam: Present: depressed, flat affect Skin exam: Present: warm, dry, intact, normal color. Absent: rash Course Vital Signs 05/11/18 17:46 Temperature 98.2 F Pulse Rate 79 Respiratory 16 Rate Blood Pressure 169/94 O2 Sat by Pulse 94 L Oximetry Medical Decision Making - Medical Decision Making Patient evaluated by EPS case discussed with on-call psychiatry patient will be admitted for further evaluation. Disposition Clinical Impression: Depression, Suicidal ideation Disposition: TRANSFER TO PSYCH HOSP/UNIT Condition: Stable Referrals: Meredith Reich MD [Primary Care Provider] - 1-2 days
[2018-05-11 20:09] LABS: Amphetamine Screen,Urine Not Detected (NotDetected); Barbiturate Screen,Urine Not Detected (NotDetected); Benzodiazepines Screen,Urine Not Detected (NotDetected); Cocaine Screen,Urine Detected (NotDetected); Methadone Screen, Urine Not Detected (NotDetected); Opiate Screen,Urine Detected (NotDetected); Oxycodone Screen, Urine Not Detected (NotDetected); Phencyclidine Screen,Urine Not Detected (NotDetected); Tricyclic Antidepressant,Urine Not Detected (NotDetected); Urn Cannabinoid Scrn Not Detected (NotDetected)
[2018-05-11 21:15] LABS: Appearance,Urine Clear (Clear); Bilirubin,Urine Negative (Negative); Blood,Urine Negative (Negative); Color,Urine Yellow; Glucose,Urine (UA) 4+ (Negative); Ketones,Urine Negative (Negative); Leukocyte Esterase,Urine Negative (Negative); Nitrite,Urine Negative (Negative); PH, Urine 5.5 (5.0-8.0); Protein,Urine Negative (Negative)
[2018-05-11 21:23] LABS: HGB 17.5 gm/dL (13.0-17.5); MCH 28.6 pg (25.0-35.0); MCHC 31.6 g/dL (31.0-37.0); MCV 90.5 fL (80.0-100.0); Mean Platelet Volume 8.1; Platelet Count 203 k/uL (150-450); RBC 6.12 m/uL (4.30-5.90); WBC 11.2 k/uL (3.8-10.6)
[2018-05-11 21:24] LABS: HCT 55.4 % (39.0-53.0)
[2018-05-11 21:34] LABS: ALT 27 U/L (21-72); AST 35 U/L (17-59); Albumin 3.7 g/dL (3.5-5.0); Alkaline Phosphatase 70 U/L (38-126); Anion Gap 9 mmol/L; Blood Urea Nitrogen 20 mg/dL (9-20); Calcium 9.4 mg/dL (8.4-10.2); Carbon Dioxide 21 mmol/L (22-30); Chloride 109 mmol/L (98-107); Glucose 182 mg/dL (74-99); Potassium 4.8 mmol/L (3.5-5.1); Sodium 139 mmol/L (137-145); Total Bilirubin 0.6 mg/dL (0.2-1.3); Total Protein 7.2 g/dL (6.3-8.2)
[2018-05-12 03:47] LABS: Glucose,Whole Blood 166 mg/dL (75-99)
[2018-05-12 05:02] VITALS: BP 132/71; PULSE 74
== END 2018-05-12 05:38 ==
LOC: EC 17:37
DX: R45.851 Suicidal ideations (principal); F14.94 Cocaine use, unspecified with cocaine-induced mood disorder; I10 Essential (primary) hypertension; E11.40 Type 2 diabetes mellitus with diabetic neuropathy, unspecified; F41.9 Anxiety disorder, unspecified; F20.9 Schizophrenia, unspecified; Z79.4 Long term (current) use of insulin; Z79.899 Other long term (current) drug therapy; Z88.6 Allergy status to analgesic agent
CPT/HCPCS: 36415; 80053; 80306; 81003; 84443; 85027; 99285

== ENCOUNTER 2019-01-22 12:52 | Inpatient (IN) | payer MEDICARE, OTHER ==
[2019-01-22] MEDS ORDERED: SODIUM CHLORIDE 0.9% 1,000 ML IV ONE ×2 (13:19→13:23)
--- NOTE | 2019-01-22 13:22 | ED ---
General Adult HPI - General Chief complaint: Psychiatric Symptoms Stated complaint: Mental health Time Seen by Provider: 01/22/19 13:00 Source: patient, RN notes reviewed, old records reviewed Mode of arrival: ambulatory Limitations: no limitations - History of Present Illness Initial comments: This is a 48-year-old male with past history significant for diabetes and depression. Patient states he became really depressed about multiple septic in all of his pressure medications as well as his insulin. Patient states since then he is just becoming more more depressed. Patient states he has not checked his sugars but he has not had any nausea vomiting or abdominal pain. Patient denies any recent fever chills or cough. Patient denies any chest pain or palpitations. Patient denies any shortness of breath per patient denies any lightheadedness or dizziness. Patient denies any headache. Patient states this morning he wanted to kill himself so he smoked crack cocaine for the first time. Patient states when that did not work he decided come to the emergency department to be checked out for depression. - Related Data Home Medications Medication Instructions Recorded Confirmed ARIPiprazole [Abilify] 20 mg PO DAILY 05/11/18 01/22/19 DULoxetine HCL [Cymbalta] 20 mg PO BID 05/11/18 01/22/19 Empagliflozin/Linagliptin 1 tab PO DAILY 05/11/18 01/22/19 [Glyxambi 25 mg-5 mg Tablet] Famotidine [Pepcid] 20 mg PO BID 05/11/18 01/22/19 Insulin Aspart [NovoLOG Flexpen] 40 unit SQ AC-TID 05/11/18 01/22/19 Insulin Detemir [Levemir Flextouch] 76 unit SQ BID 05/11/18 01/22/19 Prazosin [Minipress] 1 mg PO HS 05/11/18 01/22/19 buPROPion HCL [Wellbutrin XL] 300 mg PO DAILY 05/11/18 01/22/19 Furosemide [Lasix] 20 mg PO DAILY 01/22/19 01/22/19 Gabapentin [Neurontin] 400 mg PO TID 01/22/19 01/22/19 Hydrocodone/Acetaminophen [[place] 1 tab PO TID 01/22/19 01/22/19 10-325] Indomethacin [Indocin] 25 mg PO TID 01/22/19 01/22/19 Phentermine HCl [Adipex-P] 37.5 mg PO DAILY 01/22/19 01/22/19 Potassium Chloride [Klor-Con 10] 10 meq PO DAILY 01/22/19 01/22/19 metFORMIN HCL 1,000 mg PO BID 01/22/19 01/22/19 Previous Rx's Medication Instructions Recorded Allopurinol [Zyloprim] 300 mg PO DAILY tab 01/23/18 Atorvastatin [Lipitor] 20 mg PO DAILY tab 01/23/18 Pantoprazole [Protonix] 40 mg PO AC-BRKFST tablet. 01/23/18 Allergies Allergy/AdvReac Type Severity Reaction Status Date / Time ibuprofen [From Motrin] Allergy Rash/Hives Verified 01/22/19 13:03 Review of Systems ROS Statement: Those systems with pertinent positive or pertinent negative responses have been documented in the HPI. ROS Other: All systems not noted in ROS Statement are negative. Past Medical History Past Medical History: Diabetes Mellitus, Hyperlipidemia, Hypertension Additional Past Medical History / Comment(s): 01/17/18 pt wants flu vaccine while here. other hx includes:neuropathy,arthritis gout, depression.in past broke lt foot(sx ), myron carpal tunnel. History of Any Multi-Drug Resistant Organisms: None Reported Additional Past Surgical History / Comment(s): lasik eye sx ,left foot surgery. to reprair break-"has 2 plates and 16 screws" Past Anesthesia/Blood Transfusion Reactions: No Reported Reaction Past Psychological History: Anxiety, Bipolar, Depression, Schizophrenia Smoking Status: Never smoker Past Alcohol Use History: None Reported Past Drug Use History: Cocaine, Marijuana - Past Family History Mother Family Medical History: Cancer, Diabetes Mellitus Father Family Medical History: Myocardial Infarction ([place]) Additional Family Medical History / Comment(s): stroke General Exam - General Exam Comments Initial Comments: GENERAL: Patient is well-developed and well-nourished. Patient is nontoxic and well-hydrated and is in no acute distress. ENT: Neck is soft and supple. No significant lymphadenopathy is noted. Oropharynx is clear. Moist mucous membranes. Neck has full range of motion without eliciting any pain. EYES: The sclera were anicteric and conjunctiva were pink and moist. Extraocular movements were intact and pupils were equal round and reactive to light. Eyelids were unremarkable. PULMONARY: Unlabored respirations. Good breath sounds bilaterally. No audible rales rhonchi or wheezing was noted. CARDIOVASCULAR: There is a regular rate and rhythm without any murmurs gallops or rubs. ABDOMEN: Soft and nontender with normal bowel sounds. He is morbidly obese SKIN: Skin is clear with no lesions or rashes and otherwise unremarkable. NEUROLOGIC: Patient is alert and oriented x3. Cranial nerves II through XII are grossly intact. Motor and sensory are also intact. Normal speech, volume and content. Symmetrical smile. MUSCULOSKELETAL: Normal extremities with adequate strength and full range of motion. LYMPHATICS: No significant lymphadenopathy is noted PSYCHIATRIC: Patient states very depressed and this morning he was suicidal and if he believes he believes he is suicidal again. Limitations: no limitations Course Vital Signs 01/22/19 01/22/19 01/22/19 12:58 14:03 14:45 Temperature 97.8 F Pulse Rate 131 H 117 H 114 H Respiratory 16 20 20 Rate Blood Pressure 170/97 129/89 O2 Sat by Pulse 93 L 97 Oximetry Medical Decision Making - Medical Decision Making Patient had a sugar glucose of 6:30. I started the patient on an insulin drip and I gave the patient insulin bolus. Patient also received a couple liters of fluid. Poke with Dr. Hardin agreed to admit the patient admitted the patient wrote admitting orders. I consulted psychiatry. EKG shows sinus tachycardia 113 bpm [place] interval is on a 74 36 QT Interval 3:30 QTC Is 452. Patient Has a Right Bundle Branch Block. - Lab Data Result diagrams: 01/22/19 13:30 01/22/19 13:30 Lab Results 01/22/19 01/22/19 01/22/19 Range/Units 13:24 13:24 13:28 WBC (3.8-10.6) k/uL RBC (4.30-5.90) m/uL Hgb (13.0-17.5) gm/dL Hct (39.0-53.0) % MCV (80.0-100.0) fL MCH (25.0-35.0) pg MCHC (31.0-37.0) g/dL RDW (11.5-15.5) % Plt Count (150-450) k/uL Neutrophils % % Lymphocytes % % Monocytes % % Eosinophils % % Basophils % % Neutrophils # (1.3-7.7) k/uL Lymphocytes # (1.0-4.8) k/uL Monocytes # (0-1.0) k/uL Eosinophils # (0-0.7) k/uL Basophils # (0-0.2) k/uL Sodium (137-145) mmol/L Potassium (3.5-5.1) mmol/L Chloride (98-107) mmol/L Carbon Dioxide (22-30) mmol/L Anion Gap mmol/L BUN (9-20) mg/dL Creatinine (0.66-1.25) mg/dL Est GFR (CKD-EPI)AfAm (>60 ml/min/1.73 sqM) Est GFR (CKD-EPI)NonAf (>60 ml/min/1.73 sqM) Glucose (74-99) mg/dL POC Glucose (mg/dL) 591 H (75-99) mg/dL POC Glu Product Director ID Amberly Madsen Calcium (8.4-10.2) mg/dL Total Bilirubin (0.2-1.3) mg/dL AST (17-59) U/L ALT (21-72) U/L Alkaline Phosphatase (38-126) U/L Troponin I <0.012 (0.000-0.034) ng/mL Total Protein (6.3-8.2) g/dL Albumin (3.5-5.0) g/dL Urine Opiates Screen Not Detected (NotDetected) Ur Oxycodone Screen Not Detected (NotDetected) Urine Methadone Screen Not Detected (NotDetected) Ur Propoxyphene Screen Not Detected (NotDetected) Ur Barbiturates Screen Not Detected (NotDetected) U Tricyclic Antidepress Not Detected (NotDetected) Ur Phencyclidine Scrn Not Detected (NotDetected) Ur Amphetamines Screen Not Detected (NotDetected) U Methamphetamines Scrn Not Detected (NotDetected) U Benzodiazepines Scrn Not Detected (NotDetected) Urine Cocaine Screen Detected H (NotDetected) U Marijuana (THC) Screen Detected H (NotDetected) Acetone, Qual (Negative) 01/22/19 01/22/19 01/22/19 Range/Units 13:30 13:30 14:54 WBC 10.6 (3.8-10.6) k/uL RBC 6.11 H (4.30-5.90) m/uL Hgb 18.2 H (13.0-17.5) gm/dL Hct 55.3 H (39.0-53.0) % MCV 90.6 (80.0-100.0) fL MCH 29.8 (25.0-35.0) pg MCHC 32.9 (31.0-37.0) g/dL RDW 13.1 (11.5-15.5) % Plt Count 203 (150-450) k/uL Neutrophils % 83 % Lymphocytes % 11 % Monocytes % 4 % Eosinophils % 0 % Basophils % 1 % Neutrophils # 8.8 H (1.3-7.7) k/uL Lymphocytes # 1.2 (1.0-4.8) k/uL Monocytes # 0.4 (0-1.0) k/uL Eosinophils # 0.0 (0-0.7) k/uL Basophils # 0.1 (0-0.2) k/uL Sodium 132 L (137-145) mmol/L Potassium 4.5 (3.5-5.1) mmol/L Chloride 100 (98-107) mmol/L Carbon Dioxide 15 L (22-30) mmol/L Anion Gap 17 mmol/L BUN 11 (9-20) mg/dL Creatinine 0.77 (0.66-1.25) mg/dL Est GFR (CKD-EPI)AfAm >90 (>60 ml/min/1.73 sqM) Est GFR (CKD-EPI)NonAf >90 (>60 ml/min/1.73 sqM) Glucose 630 H* (74-99) mg/dL POC Glucose (mg/dL) 439 H (75-99) mg/dL POC Glu Product Director ID Padmini Low Calcium 9.7 (8.4-10.2) mg/dL Total Bilirubin 1.4 H (0.2-1.3) mg/dL AST 68 H (17-59) U/L ALT 58 (21-72) U/L Alkaline Phosphatase 113 (38-126) U/L Troponin I (0.000-0.034) ng/mL Total Protein 7.8 (6.3-8.2) g/dL Albumin 4.3 (3.5-5.0) g/dL Urine Opiates Screen (NotDetected) Ur Oxycodone Screen (NotDetected) Urine Methadone Screen (NotDetected) Ur Propoxyphene Screen (NotDetected) Ur Barbiturates Screen (NotDetected) U Tricyclic Antidepress (NotDetected) Ur Phencyclidine Scrn (NotDetected) Ur Amphetamines Screen (NotDetected) U Methamphetamines Scrn (NotDetected) U Benzodiazepines Scrn (NotDetected) Urine Cocaine Screen (NotDetected) U Marijuana (THC) Screen (NotDetected) Acetone, Qual Positive (Negative) Critical Care Time Critical Care Time: Yes Total Critical Care Time: 35 Disposition Clinical Impression: Diabetic ketoacidosis, Suicidal ideations, Cocaine abuse Disposition: ADMITTED IP TO THIS HOSP Referrals: Meredith Reich MD [Primary Care Provider] - 1-2 days Time of Disposition: 15:12
[2019-01-22 13:30] LABS: Glucose,Whole Blood 591 mg/dL (75-99)
[2019-01-22] MEDS ORDERED: INSULIN REGULAR 100 UNIT/ML VIAL IV ONE (13:32)
[2019-01-22] MEDS ORDERED: INSULIN REGULAR BOLUS (FROM DRIP BAG) IV ONE (13:32)
[2019-01-22] MEDS ORDERED: SODIUM CHLORIDE 0.9% 1,000 ML IV SCH ×2 (13:45→15:15)
[2019-01-22 13:52] LABS: ALT 58 U/L (21-72); AST 68 U/L (17-59); African American GFR (CKD) >90 (>60 ml/min/1.73 sqM); Albumin 4.3 g/dL (3.5-5.0); Alkaline Phosphatase 113 U/L (38-126); Anion Gap 17 mmol/L; Blood Urea Nitrogen 11 mg/dL (9-20); Calcium 9.7 mg/dL (8.4-10.2); Carbon Dioxide 15 mmol/L (22-30); Chloride 100 mmol/L (98-107); Non-African American GFR(CKD) >90 (>60 ml/min/1.73 sqM); Potassium 4.5 mmol/L (3.5-5.1); Sodium 132 mmol/L (137-145); Total Bilirubin 1.4 mg/dL (0.2-1.3); Total Protein 7.8 g/dL (6.3-8.2)
[2019-01-22 14:03] LABS: Glucose 630 mg/dL (74-99)
[2019-01-22 14:08] LABS: Basophils # (A) 0.1 k/uL (0-0.2); Basophils % (A) 1 %; Eosinophils % (A) 0 %; HGB 18.2 gm/dL (13.0-17.5); Lymphocytes # (A) 1.2 k/uL (1.0-4.8); Lymphocytes % (A) 11 %; MCH 29.8 pg (25.0-35.0); MCHC 32.9 g/dL (31.0-37.0); MCV 90.6 fL (80.0-100.0); Monocytes # (A) 0.4 k/uL (0-1.0); Monocytes % (A) 4 %; Neutrophils # (A) 8.8 k/uL (1.3-7.7); Neutrophils % (A) 83 %; Platelet Count 203 k/uL (150-450); RBC 6.11 m/uL (4.30-5.90); RDW 13.1 % (11.5-15.5); WBC 10.6 k/uL (3.8-10.6)
[2019-01-22 14:13] LABS: HCT 55.3 % (39.0-53.0)
[2019-01-22 14:21] LABS: Amphetamine Screen,Urine Not Detected (NotDetected); Barbiturate Screen,Urine Not Detected (NotDetected); Benzodiazepines Screen,Urine Not Detected (NotDetected); Cocaine Screen,Urine Detected (NotDetected); Methadone Screen, Urine Not Detected (NotDetected); Opiate Screen,Urine Not Detected (NotDetected); Oxycodone Screen, Urine Not Detected (NotDetected); Phencyclidine Screen,Urine Not Detected (NotDetected); Tricyclic Antidepressant,Urine Not Detected (NotDetected); Urn Cannabinoid Scrn Detected (NotDetected)
[2019-01-22] MEDS: INSULIN REGULAR 100 UNIT in SODIUM CHLORIDE 0.9% 100 ML IV SCH ×2 (14:39→21:20)
[2019-01-22 14:55] LABS: Glucose,Whole Blood 439 mg/dL (75-99)
[2019-01-22] MEDS ORDERED: INSULIN REGULAR 100 UNIT in SODIUM CHLORIDE 0.9% 100 ML IV SCH (15:15)
[2019-01-22 15:24] LABS: Glucose,Whole Blood 345 mg/dL (75-99)
--- NOTE | 2019-01-22 15:39 | XR ---
EXAMINATION TYPE: XR chest 2V DATE OF EXAM: 01/22/2019 COMPARISON: Chest x-ray July 22, 2016. HISTORY: Difficulty in breathing and hypertension. TECHNIQUE: Frontal and lateral views of the chest are obtained. FINDINGS: Exam slightly suboptimal secondary to patient's large body habitus. There is no focal air space opacity, pleural effusion, or pneumothorax seen. The cardiac silhouette size is upper limits o f normal. The osseous structures are intact. Overlying EKG leads are present. IMPRESSION: No acute cardiopulmonary process. No significant change from prior.
[2019-01-22 15:58] LABS: Glucose,Whole Blood 265 mg/dL (75-99)
[2019-01-22] MEDS: D5-0.45% NACL WITH KCL 20MEQ/L 1,000 ML IV SCH ×2 (16:05→23:28)
[2019-01-22 16:28] LABS: VBG PH 7.35 (7.31-7.41)
[2019-01-22 16:54] LABS: Glucose,Whole Blood 282 mg/dL (75-99)
[2019-01-22 18:09] LABS: Glucose,Whole Blood 247 mg/dL (75-99)
[2019-01-22 19:05] LABS: Glucose,Whole Blood 300 mg/dL (75-99)
[2019-01-22 20:00] LABS: Glucose,Whole Blood 146 mg/dL (75-99)
[2019-01-22 20:20] LABS: African American GFR (CKD) >90 (>60 ml/min/1.73 sqM); Anion Gap 6 mmol/L; Blood Urea Nitrogen 9 mg/dL (9-20); Carbon Dioxide 24 mmol/L (22-30); Chloride 107 mmol/L (98-107); Glucose 160 mg/dL (74-99); Non-African American GFR(CKD) >90 (>60 ml/min/1.73 sqM); Potassium 3.5 mmol/L (3.5-5.1); Sodium 137 mmol/L (137-145)
[2019-01-22 21:01] LABS: Glucose,Whole Blood 200 mg/dL (75-99)
[2019-01-22 22:01] LABS: Glucose,Whole Blood 203 mg/dL (75-99)
[2019-01-22 23:01] LABS: Glucose,Whole Blood 235 mg/dL (75-99)
[2019-01-23 00:09] LABS: Glucose,Whole Blood 232 mg/dL (75-99)
[2019-01-23 00:16] LABS: African American GFR (CKD) >90 (>60 ml/min/1.73 sqM); Anion Gap 7 mmol/L; Blood Urea Nitrogen 10 mg/dL (9-20); Carbon Dioxide 22 mmol/L (22-30); Chloride 106 mmol/L (98-107); Glucose 261 mg/dL (74-99); Non-African American GFR(CKD) >90 (>60 ml/min/1.73 sqM); Phosphorus 3.2 mg/dL (2.5-4.5); Potassium 3.6 mmol/L (3.5-5.1); Sodium 135 mmol/L (137-145)
[2019-01-23 01:05] LABS: Glucose,Whole Blood 199 mg/dL (75-99)
[2019-01-23 01:59] LABS: Glucose,Whole Blood 209 mg/dL (75-99)
[2019-01-23] MEDS ORDERED: INSULIN DETEMIR (LEVEMIR) 100 UNIT/ML SYR SQ SCH ×3 (02:55→21:00)
[2019-01-23 03:06] LABS: Glucose,Whole Blood 160 mg/dL (75-99)
[2019-01-23 04:07] LABS: Glucose,Whole Blood 149 mg/dL (75-99)
[2019-01-23 05:10] LABS: Glucose,Whole Blood 134 mg/dL (75-99)
[2019-01-23] MEDS: INSULIN REGULAR 100 UNIT in SODIUM CHLORIDE 0.9% 100 ML IV SCH (06:09)
[2019-01-23] MEDS: SODIUM CHLORIDE 0.9% 1,000 ML IV SCH ×2 (06:41→16:47)
[2019-01-23 07:19] LABS: Glucose,Whole Blood 327 mg/dL (75-99)
[2019-01-23] MEDS ORDERED: INSULIN ASPART (NovoLOG) 100 UNIT/ML VIAL SQ SCH (07:30)
[2019-01-23] MEDS: PANTOPRAZOLE 40 MG TABLET PO SCH (07:46)
[2019-01-23] MEDS: INSULIN ASPART (NovoLOG) 100 UNIT/ML VIAL SQ SCH ×6 (07:47→20:45)
[2019-01-23] MEDS ORDERED: FAMOTIDINE 20 MG TAB PO SCH (09:00)
[2019-01-23] MEDS: ATORVASTATIN 20 MG TAB PO SCH (09:05)
[2019-01-23] MEDS: ALLOPURINOL 300 MG TAB PO SCH (09:05)
[2019-01-23] MEDS: buPROPion XL 300 MG TAB.ER.24H PO SCH (09:06)
[2019-01-23] MEDS: GABAPENTIN 400 MG CAP PO SCH ×3 (09:06→20:23)
[2019-01-23] MEDS: DULoxetine HCL 20 MG CAPSULE.DR PO SCH ×2 (09:06→20:23)
[2019-01-23] MEDS: HYDROcodone/APAP 10-325MG 1 EACH TAB PO SCH ×3 (09:07→20:23)
[2019-01-23 10:52] VITALS: BMI 47.5
[2019-01-23] MEDS ORDERED: ONDANSETRON 4 MG/2 ML VIAL IVP PRN (11:00)
--- NOTE | 2019-01-23 12:04 | P.HPIM ---
History of Present Illness -year-old pleasant male came in with compensative suicidal ideation stopped taking his medication patient is probably insulin deficient type 2 diabetes mellitus because of which patient is found to be in DKA with highly elevated blood sugars patient was on IV insulin anion gap resolved and patient is being switched to subcutaneous insulin patient is quite a bit depressed trying to hurt himself because of which he stopped taking his medication and he admits to using cocaine and marijuana try and kill himself. Patient has a sitter presently. Patient denied any fever chills was nauseous denied any vomiting denied any abdominal pain. Patient is obese on high-dose of insulin. Review of Systems REVIEW OF SYSTEMS: CONSTITUTIONAL: No fever, no malaise, no fatigue. HEENT: No recent visual problems or hearing problems. Denied any sore throat. CARDIOVASCULAR: No chest pain, orthopnea, PND, no palpitations, no syncope. PULMONARY: No shortness of breath, no cough, no hemoptysis. GASTROINTESTINAL: no nausea NEUROLOGICAL: No headaches, no weakness, no numbness. HEMATOLOGICAL: Denies any bleeding or petechiae. GENITOURINARY: Denies any burning micturition, frequency, or urgency. MUSCULOSKELETAL/RHEUMATOLOGICAL: Denies any joint pain, swelling, or any muscle pain. ENDOCRINE: Denies any polyuria or polydipsia. The rest of the 14-point review of systems is negative. Past Medical History Past Medical History: Diabetes Mellitus, Hyperlipidemia, Hypertension, Sleep Apnea/CPAP/BIPAP Additional Past Medical History / Comment(s): neuropathy,arthritis gout, depression.in past broke lt foot(sx ), myron carpal tunnel. History of Any Multi-Drug Resistant Organisms: None Reported Additional Past Surgical History / Comment(s): lasik eye sx ,left foot surgery. to reprair break-"has 2 plates and 16 screws" Past Anesthesia/Blood Transfusion Reactions: No Reported Reaction Past Psychological History: Anxiety, Bipolar, Depression Smoking Status: Never smoker Past Alcohol Use History: None Reported Past Drug Use History: Cocaine, Marijuana Additional Drug Use History / Comment(s): crack cocaine. stated quit all drug use 2016 used crack cocaine today - Past Family History Mother Family Medical History: Cancer, Diabetes Mellitus Father Family Medical History: Myocardial Infarction ([place]) Additional Family Medical History / Comment(s): stroke Medications and Allergies Home Medications Medication Instructions Recorded Confirmed Type Allopurinol [Zyloprim] 300 mg PO DAILY tab 01/23/18 01/22/19 Rx Atorvastatin [Lipitor] 20 mg PO DAILY tab 01/23/18 01/22/19 Rx Pantoprazole [Protonix] 40 mg PO AC-BRKFST tablet. 01/23/18 01/22/19 Rx ARIPiprazole [Abilify] 20 mg PO DAILY 05/11/18 01/22/19 History DULoxetine HCL [Cymbalta] 20 mg PO BID 05/11/18 01/22/19 History Empagliflozin/Linagliptin 1 tab PO DAILY 05/11/18 01/22/19 History [Glyxambi 25 mg-5 mg Tablet] Famotidine [Pepcid] 20 mg PO BID 05/11/18 01/22/19 History Insulin Aspart [NovoLOG Flexpen] 40 unit SQ AC-TID 05/11/18 01/22/19 History Insulin Detemir [Levemir Flextouch] 76 unit SQ BID 05/11/18 01/22/19 History Prazosin [Minipress] 1 mg PO HS 05/11/18 01/22/19 History buPROPion HCL [Wellbutrin XL] 300 mg PO DAILY 05/11/18 01/22/19 History Furosemide [Lasix] 20 mg PO DAILY 01/22/19 01/22/19 History Gabapentin [Neurontin] 400 mg PO TID 01/22/19 01/22/19 History Hydrocodone/Acetaminophen [[place] 1 tab PO TID 01/22/19 01/22/19 History 10-325] Indomethacin [Indocin] 25 mg PO TID 01/22/19 01/22/19 History Phentermine HCl [Adipex-P] 37.5 mg PO DAILY 01/22/19 01/22/19 History Potassium Chloride [Klor-Con 10] 10 meq PO DAILY 01/22/19 01/22/19 History metFORMIN HCL 1,000 mg PO BID 01/22/19 01/22/19 History Allergies Allergy/AdvReac Type Severity Reaction Status Date / Time ibuprofen [From Motrin] Allergy Rash/Hives Verified 01/22/19 13:03 Physical Exam Vitals: Vital Signs Temp Pulse Pulse Resp BP BP Pulse Ox 01/23/19 04:00 98.1 F 73 16 118/67 96 01/23/19 00:00 98.4 F 75 16 124/55 92 L 01/22/19 20:00 98.2 F 83 16 131/86 95 01/22/19 17:05 98.4 F 97 16 139/91 93 L 01/22/19 16:28 101 H 20 125/81 97 01/22/19 15:45 106 H 18 113/81 95 01/22/19 14:45 114 H 20 129/89 97 01/22/19 14:03 117 H 20 01/22/19 12:58 97.8 F 131 H 16 170/97 93 L Intake and Output 01/22/19 01/23/19 01/23/19 22:59 06:59 14:59 Intake Total 97.490 51.991 240 Balance 97.490 51.991 240 Intake: Intake, IV Titration 97.490 51.991 Amount Insulin Regular 100 unit 97.490 51.991 In Sodium Chloride 0.9% 100 ml @ 0.1 UNITS/KG/HR 15.118 mls/hr IV .[id number] [facility] Rx#:[id number] Oral 240 Other: Voiding Method Toilet Toilet # Voids 1 1 Weight 149.685 kg 145.9 kg 145.9 kg PHYSICAL EXAMINATION: GENERAL: The patient is alert and oriented x3, not in any acute distress. morbidly obese HEENT: Pupils are round and equally reacting to light. EOMI. No scleral icterus. No conjunctival pallor. Normocephalic, atraumatic. No pharyngeal erythema. No thyromegaly. CARDIOVASCULAR: S1 and S2 present. No murmurs, rubs, or gallops. PULMONARY: Chest is clear to auscultation, no wheezing or crackles. ABDOMEN: Soft, nontender, nondistended, normoactive bowel sounds. No palpable organomegaly. MUSCULOSKELETAL: No joint swelling or deformity. EXTREMITIES: No cyanosis, clubbing, or pedal edema. NEUROLOGICAL: Gross neurological examination did not reveal any focal deficits. SKIN: No rashes. Results CBC & Chem 7: 01/22/19 13:30 01/22/19 23:33 Labs: Abnormal Lab Results - Last 24 Hours (Table) 01/22/19 01/22/19 01/22/19 Range/Units 13:24 13:28 13:30 RBC (4.30-5.90) m/uL Hgb (13.0-17.5) gm/dL Hct (39.0-53.0) % Neutrophils # (1.3-7.7) k/uL VBG pCO2 (37-51) mmHg VBG HCO3 (24-28) mmol/L Sodium 132 L (137-145) mmol/L Carbon Dioxide 15 L (22-30) mmol/L Creatinine (0.66-1.25) mg/dL Glucose 630 H* (74-99) mg/dL POC Glucose (mg/dL) 591 H (75-99) mg/dL Total Bilirubin 1.4 H (0.2-1.3) mg/dL AST 68 H (17-59) U/L Urine Cocaine Screen Detected H (NotDetected) U Marijuana (THC) Screen Detected H (NotDetected) 01/22/19 01/22/19 01/22/19 Range/Units 13:30 14:54 15:23 RBC 6.11 H (4.30-5.90) m/uL Hgb 18.2 H (13.0-17.5) gm/dL Hct 55.3 H (39.0-53.0) % Neutrophils # 8.8 H (1.3-7.7) k/uL VBG pCO2 (37-51) mmHg VBG HCO3 (24-28) mmol/L Sodium (137-145) mmol/L Carbon Dioxide (22-30) mmol/L Creatinine (0.66-1.25) mg/dL Glucose (74-99) mg/dL POC Glucose (mg/dL) 439 H 345 H (75-99) mg/dL Total Bilirubin (0.2-1.3) mg/dL AST (17-59) U/L Urine Cocaine Screen (NotDetected) U Marijuana (THC) Screen (NotDetected) 01/22/19 01/22/19 01/22/19 Range/Units 15:57 16:15 16:53 RBC (4.30-5.90) m/uL Hgb (13.0-17.5) gm/dL Hct (39.0-53.0) % Neutrophils # (1.3-7.7) k/uL VBG pCO2 36 L (37-51) mmHg VBG HCO3 20 L (24-28) mmol/L Sodium (137-145) mmol/L Carbon Dioxide (22-30) mmol/L Creatinine (0.66-1.25) mg/dL Glucose (74-99) mg/dL POC Glucose (mg/dL) 265 H 282 H (75-99) mg/dL Total Bilirubin (0.2-1.3) mg/dL AST (17-59) U/L Urine Cocaine Screen (NotDetected) U Marijuana (THC) Screen (NotDetected) 01/22/19 01/22/19 01/22/19 Range/Units 18:00 19:03 19:52 RBC (4.30-5.90) m/uL Hgb (13.0-17.5) gm/dL Hct (39.0-53.0) % Neutrophils # (1.3-7.7) k/uL VBG pCO2 (37-51) mmHg VBG HCO3 (24-28) mmol/L Sodium (137-145) mmol/L Carbon Dioxide (22-30) mmol/L Creatinine 0.54 L (0.66-1.25) mg/dL Glucose 160 H (74-99) mg/dL POC Glucose (mg/dL) 247 H 300 H (75-99) mg/dL Total Bilirubin (0.2-1.3) mg/dL AST (17-59) U/L Urine Cocaine Screen (NotDetected) U Marijuana (THC) Screen (NotDetected) 01/22/19 01/22/19 01/22/19 Range/Units 19:59 21:00 21:59 RBC (4.30-5.90) m/uL Hgb (13.0-17.5) gm/dL Hct (39.0-53.0) % Neutrophils # (1.3-7.7) k/uL VBG pCO2 (37-51) mmHg VBG HCO3 (24-28) mmol/L Sodium (137-145) mmol/L Carbon Dioxide (22-30) mmol/L Creatinine (0.66-1.25) mg/dL Glucose (74-99) mg/dL POC Glucose (mg/dL) 146 H 200 H 203 H (75-99) mg/dL Total Bilirubin (0.2-1.3) mg/dL AST (17-59) U/L Urine Cocaine Screen (NotDetected) U Marijuana (THC) Screen (NotDetected) 01/22/19 01/22/19 01/23/19 Range/Units 23:00 23:33 00:07 RBC (4.30-5.90) m/uL Hgb (13.0-17.5) gm/dL Hct (39.0-53.0) % Neutrophils # (1.3-7.7) k/uL VBG pCO2 (37-51) mmHg VBG HCO3 (24-28) mmol/L Sodium 135 L (137-145) mmol/L Carbon Dioxide (22-30) mmol/L Creatinine 0.61 L (0.66-1.25) mg/dL Glucose 261 H (74-99) mg/dL POC Glucose (mg/dL) 235 H 232 H (75-99) mg/dL Total Bilirubin (0.2-1.3) mg/dL AST (17-59) U/L Urine Cocaine Screen (NotDetected) U Marijuana (THC) Screen (NotDetected) 01/23/19 01/23/19 01/23/19 Range/Units 01:03 01:57 03:05 RBC (4.30-5.90) m/uL Hgb (13.0-17.5) gm/dL Hct (39.0-53.0) % Neutrophils # (1.3-7.7) k/uL VBG pCO2 (37-51) mmHg VBG HCO3 (24-28) mmol/L Sodium (137-145) mmol/L Carbon Dioxide (22-30) mmol/L Creatinine (0.66-1.25) mg/dL Glucose (74-99) mg/dL POC Glucose (mg/dL) 199 H 209 H 160 H (75-99) mg/dL Total Bilirubin (0.2-1.3) mg/dL AST (17-59) U/L Urine Cocaine Screen (NotDetected) U Marijuana (THC) Screen (NotDetected) 01/23/19 01/23/19 01/23/19 Range/Units 04:05 05:08 07:19 RBC (4.30-5.90) m/uL Hgb (13.0-17.5) gm/dL Hct (39.0-53.0) % Neutrophils # (1.3-7.7) k/uL VBG pCO2 (37-51) mmHg VBG HCO3 (24-28) mmol/L Sodium (137-145) mmol/L Carbon Dioxide (22-30) mmol/L Creatinine (0.66-1.25) mg/dL Glucose (74-99) mg/dL POC Glucose (mg/dL) 149 H 134 H 327 H (75-99) mg/dL Total Bilirubin (0.2-1.3) mg/dL AST (17-59) U/L Urine Cocaine Screen (NotDetected) U Marijuana (THC) Screen (NotDetected) Thrombosis Risk Factor Assmnt - Choose All That Apply Any of the Below Risk Factors Present?: Yes Each Factor Represents 1 point: Age 41-60 years Other Risk Factors: No Other congenital or acquired thrombophilia - If yes, enter type in comment: No Thrombosis Risk Factor Assessment Total Risk Factor Score: 1 Thrombosis Risk Factor Assessment Level: Low Risk Assessment and Plan Plan: possible DKA anion gap metabolic acidosis: Patient may be insulin-dependent depression type II diabetic because of which patient and going into DKA patient was treated for DKA with IV fluids IV insulin presently gap resolved patient will be switched to subcutaneous insulin patient was started on diet.elevated blood sugars are secondary to noncompliance with medications -2 diabetes mellitus uncontrolled blood sugars due to noncompliance elevated blood sugars. -Cocaine and marijuana use: Counseling was provided -Hyponatremia pseudohyponatremia from hyperglycemia improved with IV fluids -And gap metabolic acidosis secondary to DKA -Morbid obesity -majordepression and suicidal ideation patient presently has a sitter and the psychiatric will evaluate the patient patient will be started back on his psychiatric medications -hypertension -diabetic peripheral neuropathy gabapentin will be restarted -Hyperlipidemia -Sleep apnea and uses CPAP machine at home. 10 gastroesophageal reflux disease -DVT prophylaxis with subcutaneous heparinGI prophylaxis with Protonix
[2019-01-23 12:56] LABS: Glucose,Whole Blood 241 mg/dL (75-99)
[2019-01-23] MEDS: INSULIN DETEMIR (LEVEMIR) 100 UNIT/ML SYR SQ SCH (13:06)
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
[2019-01-23] MEDS: HEPARIN SODIUM,PORCINE 5,000 UNIT/ML 1 ML VIAL SQ SCH (16:47)
[2019-01-23 16:53] LABS: Glucose,Whole Blood 180 mg/dL (75-99)
[2019-01-23 17:12] LABS: Glucose,Whole Blood 183 mg/dL (75-99)
[2019-01-23 20:43] LABS: Glucose,Whole Blood 228 mg/dL (75-99)
[2019-01-23] MEDS ORDERED: PRAZOSIN 1 MG CAP PO SCH (21:00)
[2019-01-24] MEDS: SODIUM CHLORIDE 0.9% 1,000 ML IV SCH ×2 (00:31→10:30)
[2019-01-24] MEDS: HEPARIN SODIUM,PORCINE 5,000 UNIT/ML 1 ML VIAL SQ SCH ×3 (00:31→16:21)
[2019-01-24 06:55] LABS: African American GFR (CKD) >90 (>60 ml/min/1.73 sqM); Anion Gap 2 mmol/L; Blood Urea Nitrogen 13 mg/dL (9-20); Calcium 8.4 mg/dL (8.4-10.2); Carbon Dioxide 26 mmol/L (22-30); Chloride 108 mmol/L (98-107); Glucose 190 mg/dL (74-99); Non-African American GFR(CKD) >90 (>60 ml/min/1.73 sqM); Potassium 4.2 mmol/L (3.5-5.1); Sodium 136 mmol/L (137-145)
[2019-01-24 06:56] LABS: Glucose,Whole Blood 194 mg/dL (75-99)
[2019-01-24] MEDS ORDERED: INSULIN DETEMIR (LEVEMIR) 100 UNIT/ML SYR SQ SCH (07:00)
[2019-01-24] MEDS: INSULIN ASPART (NovoLOG) 100 UNIT/ML VIAL SQ SCH ×6 (07:12→17:35)
[2019-01-24] MEDS: INSULIN DETEMIR (LEVEMIR) 100 UNIT/ML SYR SQ SCH (07:13)
[2019-01-24] MEDS: PANTOPRAZOLE 40 MG TABLET PO SCH (07:14)
[2019-01-24] MEDS: DULoxetine HCL 20 MG CAPSULE.DR PO SCH (08:00)
[2019-01-24] MEDS: GABAPENTIN 400 MG CAP PO SCH ×2 (08:00→16:21)
[2019-01-24] MEDS: buPROPion XL 300 MG TAB.ER.24H PO SCH (08:01)
[2019-01-24] MEDS: ATORVASTATIN 20 MG TAB PO SCH (08:01)
[2019-01-24] MEDS: ALLOPURINOL 300 MG TAB PO SCH (08:01)
[2019-01-24] MEDS: HYDROcodone/APAP 10-325MG 1 EACH TAB PO SCH ×2 (08:02→16:21)
[2019-01-24 09:39] VITALS: PULSE 84; RESP 16; TEMP 98.4
[2019-01-24 12:04] LABS: Glucose,Whole Blood 261 mg/dL (75-99)
--- NOTE | 2019-01-24 14:20 | P.DS ---
Providers Date of admission: 01/22/19 15:13 Attending physician: Dillon Magana Consults: 01/22/19 15:44 Consult Physician Urgent Consulting Provider: Basil Gaitan Reason/Comments: Suicidal Do you want consulting provider notified?: Yes Primary care physician: Rachana Nuñez [facility] Heart Course: 48-year-old pleasant male came in with compensative suicidal ideation stopped taking his medication patient is probably insulin deficient type 2 diabetes mellitus because of which patient is found to be in DKA with highly elevated blood sugars patient was on IV insulin anion gap resolved and patient is being switched to subcutaneous insulin patient is quite a bit depressed trying to hurt himself because of which he stopped taking his medication and he admits to using cocaine and marijuana try and kill himself. Patient has a sitter presently. Patient denied any fever chills was nauseous denied any vomiting denied any abdominal pain. Patient is obese on high-dose of insulin. 01/24/2019 Patient is doing much better today and patient is going up resolved his blood sugars are still with elevated patient will be resumed on his home regimen and the titration of his diabetic regimen can be done on the psychiatric floor patient is medically stable to be discharged to psychiatric floor patient is willing to go to psychiatric floor for severe depression and suicidal ideation patient is still depressed medically looks much better. PHYSICAL EXAMINATION: GENERAL: The patient is alert and oriented x3, not in any acute distress. morbidly obese HEENT: Pupils are round and equally reacting to light. EOMI. No scleral icterus. No conjunctival pallor. Normocephalic, atraumatic. No pharyngeal erythema. No thyromegaly. CARDIOVASCULAR: S1 and S2 present. No murmurs, rubs, or gallops. PULMONARY: Chest is clear to auscultation, no wheezing or crackles. ABDOMEN: Soft, nontender, nondistended, normoactive bowel sounds. No palpable organomegaly. MUSCULOSKELETAL: No joint swelling or deformity. EXTREMITIES: No cyanosis, clubbing, or pedal edema. NEUROLOGICAL: Gross neurological examination did not reveal any focal deficits. SKIN: No rashes. Assessment and Plan Plan: possible DKA anion gap metabolic acidosis: Resolved now Patient may be insulin- dependent depression type II diabetic because of which patient and going into DKA . -2 diabetes mellitus uncontrolled blood sugars due to noncompliance elevated blood sugars. -Cocaine and marijuana use: Counseling was provided -Hyponatremia pseudohyponatremia from hyperglycemia improved with IV fluids -And gap metabolic acidosis secondary to DKA resolved -Morbid obesity -majordepression and suicidal ideation patient will be transferred to psychiatric floor -hypertension -diabetic peripheral neuropathy gabapentin will be continued -Hyperlipidemia -Sleep apnea and uses CPAP machine at home. gastroesophageal reflux disease Plan - Discharge Summary Discharge Rx Participant: Yes New Discharge Prescriptions: Continue Atorvastatin [Lipitor] 20 mg PO DAILY tab Pantoprazole [Protonix] 40 mg PO AC-BRKFST tablet. Allopurinol [Zyloprim] 300 mg PO DAILY tab buPROPion HCL [Wellbutrin XL] 300 mg PO DAILY Prazosin [Minipress] 1 mg PO HS DULoxetine HCL [Cymbalta] 20 mg PO BID ARIPiprazole [Abilify] 20 mg PO DAILY Insulin Aspart [NovoLOG Flexpen] 40 unit SQ AC-TID Insulin Detemir [Levemir Flextouch] 76 unit SQ BID Empagliflozin/Linagliptin [Glyxambi 25 mg-5 mg Tablet] 1 tab PO DAILY Potassium Chloride [Klor-Con 10] 10 meq PO DAILY Indomethacin [Indocin] 25 mg PO TID Hydrocodone/Acetaminophen [Hatley 10-325] 1 tab PO TID Phentermine HCl [Adipex-P] 37.5 mg PO DAILY Gabapentin [Neurontin] 400 mg PO TID metFORMIN HCL 1,000 mg PO BID Furosemide [Lasix] 20 mg PO DAILY Discontinued Famotidine [Pepcid] 20 mg PO BID Discharge Medication List Allopurinol [Zyloprim] 300 mg PO DAILY tab 01/23/18 [Rx] Atorvastatin [Lipitor] 20 mg PO DAILY tab 01/23/18 [Rx] Pantoprazole [Protonix] 40 mg PO AC-BRKFST tablet. 01/23/18 [Rx] ARIPiprazole [Abilify] 20 mg PO DAILY 05/11/18 [History] DULoxetine HCL [Cymbalta] 20 mg PO BID 05/11/18 [History] Empagliflozin/Linagliptin [Glyxambi 25 mg-5 mg Tablet] 1 tab PO DAILY 05/11/18 [ History] Insulin Aspart [NovoLOG Flexpen] 40 unit SQ AC-TID 05/11/18 [History] Insulin Detemir [Levemir Flextouch] 76 unit SQ BID 05/11/18 [History] Prazosin [Minipress] 1 mg PO HS 05/11/18 [History] buPROPion HCL [Wellbutrin XL] 300 mg PO DAILY 05/11/18 [History] Furosemide [Lasix] 20 mg PO DAILY 01/22/19 [History] Gabapentin [Neurontin] 400 mg PO TID 01/22/19 [History] Hydrocodone/Acetaminophen [Hatley 10-325] 1 tab PO TID 01/22/19 [History] Indomethacin [Indocin] 25 mg PO TID 01/22/19 [History] Phentermine HCl [Adipex-P] 37.5 mg PO DAILY 01/22/19 [History] Potassium Chloride [Klor-Con 10] 10 meq PO DAILY 01/22/19 [History] metFORMIN HCL 1,000 mg PO BID 01/22/19 [History] Follow up Appointment(s)/Referral(s): Meredith Reich MD [Primary Care Provider] - 01/29/19 1:40 pm Discharge Disposition: TRANSFER TO PSYCH HOSP/UNIT
[2019-01-24 14:24] VITALS: BP 144/87
[2019-01-24 17:21] LABS: Glucose,Whole Blood 216 mg/dL (75-99)
[2019-01-24 17:38] LABS: Hemoglobin A1C 15.1 % (4.0-6.0)
== END 2019-01-24 18:27 | DRG 638 ==
LOC: EC 12:52 → 3SCARD 15:13 → 4MS4W 01-24 09:05
PROVIDERS: ADMIT Hospitalist; ATTEND Hospitalist
DX: E11.10 Type 2 diabetes mellitus with ketoacidosis without coma (principal); R45.851 Suicidal ideations; E87.1 Hypo-osmolality and hyponatremia; E11.42 Type 2 diabetes mellitus with diabetic polyneuropathy; E66.01 Morbid (severe) obesity due to excess calories; F20.9 Schizophrenia, unspecified; T38.3X6A Underdosing of insulin and oral hypoglycemic [antidiabetic] drugs, initial encounter; E78.5 Hyperlipidemia, unspecified; F12.90 Cannabis use, unspecified, uncomplicated; F14.90 Cocaine use, unspecified, uncomplicated; F41.9 Anxiety disorder, unspecified; F32.9 Major depressive disorder, single episode, unspecified; G47.30 Sleep apnea, unspecified; I10 Essential (primary) hypertension; I45.10 Unspecified right bundle-branch block; K21.9 Gastro-esophageal reflux disease without esophagitis; M10.9 Gout, unspecified; Z91.128 Patient's intentional underdosing of medication regimen for other reason; Z79.4 Long term (current) use of insulin; Z79.899 Other long term (current) drug therapy; Z88.6 Allergy status to analgesic agent; Z82.3 Family history of stroke; Z82.49 Family history of ischemic heart disease and other diseases of the circulatory system; Z83.3 Family history of diabetes mellitus; Z80.9 Family history of malignant neoplasm, unspecified
CPT/HCPCS: 36415; 71046; 80048; 80051; 80053; 80306; 82009; 82075; 82565; 82803; 82947; 83036; 84100; 84484; 84520; 85025; 93005; 96360; 96361; 99291

== ENCOUNTER 2019-01-24 18:09 | Inpatient (IN) | payer MEDICARE, MEDICAID ==
[2019-01-24] MEDS ORDERED: ZIPRASIDONE 20 MG VIAL IM PRN (19:48)
[2019-01-24] MEDS ORDERED: MAG HYDROX/AL HYDROX/SIMETH 30 ML CUP PO PRN (19:48)
[2019-01-24] MEDS ORDERED: ACETAMINOPHEN TAB 325 MG TAB PO PRN (19:48)
[2019-01-24] MEDS ORDERED: MAGNESIUM HYDROXIDE 2,400 MG/10 ML CUP PO PRN (19:48)
[2019-01-24] MEDS ORDERED: HYDROcodone/APAP 10-325MG 1 EACH TAB PO PRN (19:51)
[2019-01-24 21:29] LABS: Glucose,Whole Blood 235 mg/dL (75-99)
[2019-01-24] MEDS: INSULIN DETEMIR (LEVEMIR) 100 UNIT/ML SYR SQ SCH (21:29)
[2019-01-24] MEDS: PRAZOSIN 1 MG CAP PO SCH (21:30)
[2019-01-24] MEDS: GABAPENTIN 400 MG CAP PO SCH (21:30)
[2019-01-24] MEDS: DULoxetine HCL 20 MG CAPSULE.DR PO SCH (21:30)
[2019-01-24] MEDS: LORazepam 1 MG TAB PO PRN (21:37)
[2019-01-25 07:44] LABS: Glucose,Whole Blood 144 mg/dL (75-99)
[2019-01-25] MEDS: INSULIN DETEMIR (LEVEMIR) 100 UNIT/ML SYR SQ SCH ×2 (08:07→20:53)
[2019-01-25] MEDS: PANTOPRAZOLE 40 MG TABLET PO SCH (08:08)
[2019-01-25] MEDS: ATORVASTATIN 20 MG TAB PO SCH (08:08)
[2019-01-25] MEDS: metFORMIN 500 MG TAB PO SCH ×2 (08:08→17:27)
[2019-01-25] MEDS: ALLOPURINOL 300 MG TAB PO SCH (08:08)
[2019-01-25] MEDS: DULoxetine HCL 20 MG CAPSULE.DR PO SCH ×2 (08:09→20:53)
[2019-01-25] MEDS: buPROPion XL 300 MG TAB.ER.24H PO SCH (08:09)
[2019-01-25] MEDS: GABAPENTIN 400 MG CAP PO SCH ×3 (08:09→20:54)
[2019-01-25] MEDS: Empagliflozin/Linagliptin [Glyxambi 25 Mg-5 Mg Tablet] PO SCH (08:10)
[2019-01-25] MEDS: INSULIN ASPART (NovoLOG) 100 UNIT/ML VIAL SQ SCH ×3 (08:11→17:27)
[2019-01-25] MEDS ORDERED: FUROSEMIDE 20 MG TAB PO SCH (09:00)
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
[2019-01-25 13:00] LABS: Glucose,Whole Blood 94 mg/dL (75-99)
[2019-01-25 17:14] LABS: Glucose,Whole Blood 68 mg/dL (75-99)
[2019-01-25 17:51] LABS: Glucose,Whole Blood 93 mg/dL (75-99)
[2019-01-25] MEDS: QUEtiapine 50 MG TAB PO SCH (20:53)
[2019-01-25] MEDS: PRAZOSIN 1 MG CAP PO SCH (20:53)
[2019-01-25 21:09] LABS: Glucose,Whole Blood 168 mg/dL (75-99)
--- NOTE | 2019-01-26 00:56 | P.MDCNMH ---
History of Present Illness H&P Date: 01/25/19 Chief Complaint: Depression Patient is a 48-year-old male with a known history of diabetes type 2 insulin- dependent, hypertension, hyperlipidemia, obstructive sleep apnea on CPAP but noncompliant, diabetic peripheral neuropathy and depression was initially admitted to the hospital due to diabetic ketoacidosis. Patient says that he has been depressed recently and stopped his medications. Patient was initially continued on insulin drip and was transitioned to subcutaneous insulin with Levemir and NovoLog. Patient felt very depressed and was having suicidal thoughts. Patient was seen by psychiatry and recommended inpatient psychiatric admission. Patient was eventually transferred to psychiatric unit. Currently denied any complaints of chest pain or shortness of breath. Still feeling depressed. Denied any suicidal ideation. No cough is from production. No headache or dizziness or lightheadedness. Patient's blood sugar has been running low today. Review of Systems Constitutional: Patient denies any fever or chills . No generalized weakness or weight loss. Abdomen: Patient denied nausea vomiting and diarrhea and abdominal pain. Cardiovascular: Patient denies any chest pain or short of breath no palpitati ons. Respiratory: patient denied any cough is from production. No shortness of breath Neurologic: Patient denied any numbness or tingling headache. Musculoskeletal: Patient denies any complaints of joint swelling or deformity. Skin: Negative Psychiatric: Depression Endocrine: No heat or cold intolerance. No recent weight gain. Genitourinary: No dysuria or hematuria. All other 14 point ROS negative except the above Past Medical History Past Medical History: Diabetes Mellitus, Hyperlipidemia, Hypertension, Sleep Apnea/CPAP/BIPAP Additional Past Medical History / Comment(s): neuropathy,arthritis gout, depression.in past broke lt foot(sx ), myron carpal tunnel. History of Any Multi-Drug Resistant Organisms: None Reported Additional Past Surgical History / Comment(s): lasik eye sx ,left foot surgery. to reprair break-"has 2 plates and 16 screws" Past Anesthesia/Blood Transfusion Reactions: No Reported Reaction Past Psychological History: Anxiety, Bipolar, Depression, PTSD Smoking Status: Never smoker Past Alcohol Use History: None Reported Additional Past Alcohol Use History / Comment(s): "haven't drank since New Year's last year". Past Drug Use History: Cocaine, Marijuana Additional Drug Use History / Comment(s): crack cocaine. stated quit all drug use 2016 used crack cocaine today (day of admission 01-22-2019 - Past Family History Mother Family Medical History: Cancer, Diabetes Mellitus Father Family Medical History: Myocardial Infarction ([place]) Additional Family Medical History / Comment(s): stroke Medications and Allergies Home Medications Medication Instructions Recorded Confirmed Type Allopurinol [Zyloprim] 300 mg PO DAILY tab 01/23/18 01/24/19 Rx Atorvastatin [Lipitor] 20 mg PO DAILY tab 01/23/18 01/24/19 Rx Pantoprazole [Protonix] 40 mg PO AC-BRKFST tablet. 01/23/18 01/24/19 Rx ARIPiprazole [Abilify] 20 mg PO DAILY 05/11/18 01/24/19 History DULoxetine HCL [Cymbalta] 20 mg PO BID 05/11/18 01/24/19 History Empagliflozin/Linagliptin 1 tab PO DAILY 05/11/18 01/24/19 History [Glyxambi 25 mg-5 mg Tablet] Insulin Aspart [NovoLOG Flexpen] 50 unit SQ AC-TID 05/11/18 01/24/19 History Insulin Detemir [Levemir Flextouch] 80 unit SQ BID 05/11/18 01/24/19 History Prazosin [Minipress] 1 mg PO HS 05/11/18 01/24/19 History buPROPion HCL [Wellbutrin XL] 300 mg PO DAILY 05/11/18 01/24/19 History Furosemide [Lasix] 20 mg PO DAILY 01/22/19 01/24/19 History Gabapentin [Neurontin] 400 mg PO TID 01/22/19 01/24/19 History Hydrocodone/Acetaminophen [Gould 1 tab PO TID PRN 01/22/19 01/24/19 History 10-325] Indomethacin [Indocin] 25 mg PO TID 01/22/19 01/24/19 History Phentermine HCl [Adipex-P] 37.5 mg PO DAILY 01/22/19 01/24/19 History Potassium Chloride [Klor-Con 10] 10 meq PO DAILY 01/22/19 01/24/19 History metFORMIN HCL 1,000 mg PO BID 01/22/19 01/24/19 History QUEtiapine [SEROquel] 50 mg PO HS 01/24/19 01/24/19 History Allergies Allergy/AdvReac Type Severity Reaction Status Date / Time ibuprofen [From Motrin] Allergy Rash/Hives Verified 01/24/19 19:06 Physical Exam Vitals: Vital Signs Temp Pulse Resp BP Pulse Ox 01/25/19 06:51 82 18 125/61 97 01/24/19 18:51 97.9 F 87 18 139/95 94 L Intake and Output 01/24/19 01/25/19 01/25/19 22:59 06:59 14:59 Other: Weight 149.8 kg PHYSICAL EXAMINATION: Patient is lying in the bed comfortably, no acute distress, awake alert and oriented.. HEENT: Normocephalic. Neck is supple. Pupils reactive. Nostrils clear. Oral cavity is moist. Ears reveal no drainage. Neck reveals no JVD, carotid bruits, or thyromegaly. CHEST EXAMINATION: Trachea is central. Symmetrical expansion. Lung fischer clear to auscultation and percussion. CARDIAC: Normal S1, S2 with no gallops. No murmurs ABDOMEN: Soft. Bowel sounds normal. No organomegaly. No abdominal bruits. Extremities: reveal no edema. No clubbing or cyanosis Neurologically awake, alert, oriented x3 with well-coordinated movements. No focal deficits noted Skin: No rash or skin lesions. Psychiatric: Coperative. Depressive. Denied any suicidal ideation. Musculoskeletal: No joint swelling or deformity. Normal range of motion. Cranial Nerve Examination - Cranial Nerves Cranial Nerve I- Olfactory: Intact Cranial Nerve II- Optic: Intact Cranial Nerve III- Oculomotor: Intact Cranial Nerve IV- Trochlear: Intact Cranial Nerve V- Trigeminal: Intact Cranial Nerve - Abducens: Intact Cranial Nerve VII- Facial: Intact Cranial Nerve VIII- Auditory: Intact Cranial Nerve IX- Glossopharyngeal: Intact Cranial Nerve X- Vagus: Intact Cranial Nerve XI- Accessory: Intact Cranial Nerve XII- Hypoglossal: Intact Results Labs: Abnormal Lab Results - Last 24 Hours (Table) 01/24/19 01/25/19 Range/Units 21:28 07:43 POC Glucose (mg/dL) 235 H 144 H (75-99) mg/dL Assessment and Plan Assessment: Depression with suicidal ideation Hyperglycemia with uncontrolled diabetes type 2. Insulin-dependent Cocaine and marijuana use. Noncompliance with medications Hypertension Diabetic peripheral neuropathy Obstructive sleep apnea uses CPAP at home GERD History of gout Anxiety/bipolar/depression/PTSD DVT prophylaxis Morbid obesity BMI 48.8 Plan: Patient will be continued on Levemir 80 units changed to daily from twice a day due to hypoglycemia today. Patient did not receive lobe measured last night. Continue with NovoLog at current dose. Continue with the sliding scale.. Monit or CBC closely Continue the home blood pressure medications and current psychiatric management. Counseling provided for cocaine and marijuana use. Further recommendations based on the clinical course. We will continue to follow. Thank you for your consult. Time with Patient: Greater than 30
[2019-01-26 07:49] LABS: Glucose,Whole Blood 132 mg/dL (75-99)
[2019-01-26] MEDS: INSULIN DETEMIR (LEVEMIR) 100 UNIT/ML SYR SQ SCH (08:15)
[2019-01-26] MEDS: ALLOPURINOL 300 MG TAB PO SCH (08:16)
[2019-01-26] MEDS: metFORMIN 500 MG TAB PO SCH ×2 (08:16→17:16)
[2019-01-26] MEDS: GABAPENTIN 400 MG CAP PO SCH ×3 (08:16→21:44)
[2019-01-26] MEDS: PANTOPRAZOLE 40 MG TABLET PO SCH (08:16)
[2019-01-26] MEDS: ATORVASTATIN 20 MG TAB PO SCH (08:16)
[2019-01-26] MEDS: buPROPion XL 300 MG TAB.ER.24H PO SCH (08:16)
[2019-01-26] MEDS: Empagliflozin/Linagliptin [Glyxambi 25 Mg-5 Mg Tablet] PO SCH (08:17)
[2019-01-26] MEDS: DULoxetine HCL 20 MG CAPSULE.DR PO SCH ×2 (08:17→21:45)
[2019-01-26] MEDS: INSULIN ASPART (NovoLOG) 100 UNIT/ML VIAL SQ SCH ×4 (08:19→17:14)
--- NOTE | 2019-01-26 10:38 | P.PN ---
Progress Note - Text Interval history: The patient is found in his room he follows me to an interview room. He was admitted yesterday for suicidal ideation in the context of depression. His previous outpatient psychotropic medications were restarted. He states he had gone off of those for approximately one month due to his depression. He reports he didn't sleep well last night and estimates he got 2 hours staff recorded he slept 7 hours. He indicates he did eat breakfast this morning he has not been attending groups so far. We discussed the importance of attending groups for evaluation and treatment purposes. He has no questions or concerns regarding his medication. Mental status exam: The patient is a morbidly obese male appearing his stated age. He is a disheveled appearance hygiene impaired he is dressed in a T-shirt and pajama bottoms. He ambulates slowly he demonstrates some psychomotor slowing. He describes a depressed mood he feels hopeless he continues to have suicidal thoughts but indicates he can keep himself safe here on the mental health unit. He is reporting no auditory or visual hallucinations or any specific delusions he demonstrates no tangential thinking loose associations or flight of ideas. Affect is blunted. He has no spontaneous speech she provides brief answers to questions. He demonstrates no verbal or physical aggressiveness he demonstrates no involuntary repetitive movements. Insight and judgment impaired. Plan: The patient will be continued as current psychotropic medications. He strongly encouraged to avoid isolating in his room and is asked to attend groups. We will monitor him for safety. Vital signs reviewed. He requires continued psychiatric hospitalization for further stabilization.
[2019-01-26 12:39] LABS: Glucose,Whole Blood 160 mg/dL (75-99)
[2019-01-26 17:20] LABS: Glucose,Whole Blood 143 mg/dL (75-99)
[2019-01-26] MEDS: QUEtiapine 50 MG TAB PO SCH (21:44)
[2019-01-26] MEDS: PRAZOSIN 1 MG CAP PO SCH (21:44)
[2019-01-26 21:58] LABS: Glucose,Whole Blood 153 mg/dL (75-99)
[2019-01-27 07:41] LABS: Glucose,Whole Blood 142 mg/dL (75-99)
[2019-01-27] MEDS: INSULIN ASPART (NovoLOG) 100 UNIT/ML VIAL SQ SCH ×3 (08:02→18:31)
[2019-01-27] MEDS: INSULIN DETEMIR (LEVEMIR) 100 UNIT/ML SYR SQ SCH (08:02)
[2019-01-27] MEDS: metFORMIN 500 MG TAB PO SCH ×2 (08:03→16:54)
[2019-01-27] MEDS: PANTOPRAZOLE 40 MG TABLET PO SCH (08:03)
[2019-01-27] MEDS: ALLOPURINOL 300 MG TAB PO SCH (08:04)
[2019-01-27] MEDS: DULoxetine HCL 20 MG CAPSULE.DR PO SCH (08:04)
[2019-01-27] MEDS: ATORVASTATIN 20 MG TAB PO SCH (08:04)
[2019-01-27] MEDS: GABAPENTIN 400 MG CAP PO SCH ×3 (08:04→21:15)
[2019-01-27] MEDS: buPROPion XL 300 MG TAB.ER.24H PO SCH (08:04)
[2019-01-27] MEDS: Empagliflozin/Linagliptin [Glyxambi 25 Mg-5 Mg Tablet] PO SCH (09:24)
--- NOTE | 2019-01-27 12:18 | P.PN ---
Progress Note - Text Interval history: The patient is found in his room he follows me to an interview room. He reports he feels terrible. He reports feeling depressed and hopeless. He describes continued suicidal thoughts. He indicates he can keep himself safe here in the hospital. He indicates he is hearing his mother's voice making derogatory statements. In discussing it further he had a good relationship with his mother and in reality she would not say those things. We discussed that it is his depression and his own self appraisal thoughts that are driving those hallucinations. He states that he has made a few efforts to attend groups but feels overwhelmed around others. He is getting up for meals. His blood sugars have stabilized compared to when he first presented to the hospital. We reviewed his psychotropic medication. We decided to titrate the Cymbalta further. Mental status exam: The patient is a morbidly obese male he is a disheveled appearance hygiene is impaired. He is dressed in his own clothing. Eye contact is appropriate speech is fluent spontaneous nonpressured. He endorses a depressed mood with hopelessness thinking and suicidal ideation. Indicates he can keep himself safe in the hospital. He reports an auditory hallucination that sounds like his mother making derogatory comments. He reports no visual hallucinations or any specific delusions. He demonstrates no tangential thinking loose associations or flight of ideas. He does not appear hypomanic or manic. Insight and judgment limited. Affect is blunted. Plan: The patient will continue on his current psychotropic medication however we will titrate the Cymbalta to 30 mg twice daily. He is encouraged to get out of his room more and participate in the milieu. We attempted to reframe how he is thinking about the auditory hallucination. He is encouraged to get up and ambulate in the hallways for some physical activity. We will continue to monitor him for safety. Vital signs reviewed.
[2019-01-27 12:47] LABS: Glucose,Whole Blood 145 mg/dL (75-99)
[2019-01-27 17:13] LABS: Glucose,Whole Blood 128 mg/dL (75-99)
[2019-01-27 17:47] LABS: Glucose,Whole Blood 129 mg/dL (75-99)
[2019-01-27 18:30] LABS: Glucose,Whole Blood 144 mg/dL (75-99)
[2019-01-27 20:27] LABS: Glucose,Whole Blood 99 mg/dL (75-99)
[2019-01-27] MEDS: LORazepam 1 MG TAB PO PRN (21:14)
[2019-01-27] MEDS: PRAZOSIN 1 MG CAP PO SCH (21:15)
[2019-01-27] MEDS: DULoxetine HCL 30 MG CAPSULE.DR PO SCH (21:15)
[2019-01-27] MEDS: QUEtiapine 50 MG TAB PO SCH (21:15)
[2019-01-28 07:57] LABS: Glucose,Whole Blood 203 mg/dL (75-99)
[2019-01-28] MEDS: INSULIN ASPART (NovoLOG) 100 UNIT/ML VIAL SQ SCH ×3 (08:31→18:15)
[2019-01-28] MEDS: INSULIN DETEMIR (LEVEMIR) 100 UNIT/ML SYR SQ SCH (08:31)
[2019-01-28] MEDS: ATORVASTATIN 20 MG TAB PO SCH (08:32)
[2019-01-28] MEDS: ALLOPURINOL 300 MG TAB PO SCH (08:32)
[2019-01-28] MEDS: DULoxetine HCL 30 MG CAPSULE.DR PO SCH ×2 (08:32→21:26)
[2019-01-28] MEDS: Empagliflozin/Linagliptin [Glyxambi 25 Mg-5 Mg Tablet] PO SCH (08:33)
[2019-01-28] MEDS: buPROPion XL 300 MG TAB.ER.24H PO SCH (08:33)
[2019-01-28] MEDS: GABAPENTIN 400 MG CAP PO SCH ×3 (08:33→21:27)
[2019-01-28] MEDS: PANTOPRAZOLE 40 MG TABLET PO SCH (08:34)
[2019-01-28] MEDS: metFORMIN 500 MG TAB PO SCH ×2 (08:34→17:58)
[2019-01-28 12:37] LABS: Glucose,Whole Blood 180 mg/dL (75-99)
--- NOTE | 2019-01-28 14:56 | P.PN ---
Progress Note - Text Progress Note Date: 01/28/19 Clinical Problems: Major depressive disorder recurrent severe without psychotic features, cocaine use disorder moderate, marijuana use disorder unspecified, rule out bipolar disorder, rule out personality disorder Interim history: I reviewed the medical record, interviewed the patient and discuss his treatment and treatment plan during team meeting. He reported no adverse effects after restarting his outpatient medications. However, he remains depressed, anergic and anhedonic. He described persistent suicidal thoughts and wishes. We reviewed his treatment history. He has been prescribed Celexa, Prozac, Paxil, Zoloft, duloxetine, Wellbutrin in addition to Abilify and Seroquel. He is not been prescribed tricyclic antidepressants or monoamine oxidase inhibitors. We discussed ECT as a treatment option given his long history of recurrent episodes of depression and poor response to treatment. He was opposed to the idea because the treatment would "turned me into a vegetable." I provided him with outpatient information booklet to read. He agreed to begin a trial of lithium for depression augmentation in lieu of Abilify. Mental status exam: He presented as more productive beast 48-year-old male who looked younger than his stated age. He made intermittent eye contact. His speech and movements were slow. He showed poverty of speech. His affect was depressed and not reactive. He describes suicidal ideation and wishes. He expressed feelings of hopelessness, helplessness and worthlessness. He did not express ideas reference, paranoid ideation or delusional thoughts. His thinking was abstract and associations were coherent and logical. He denied hallucinations did not appear to be responding to internal stimuli. Assessment: He remains severely depressed with little response to the current treatment with accommodation of 2 antidepressants and a second generation antipsychotic. Plan: Continue inpatient hospitalization. Continue safety precautions. Decrease Abilify to 10 mg daily and continue the taper. Begin lithium 300 mg by mouth 3 times a day and titrated according to serum level with a target 0.6 and 1.0. Obtain lithium level in 4 days. Continue Wellbutrin XL 300 mg daily and duloxetine 30 mg twice a day. Continue allopurinol, Lipitor, Neurontin, [place], NovoLog, Levemir, Glucophage, Protonix, Minipress as prescribed by medicine service. Seroquel 50 mg at bedtime for sleep. Continue discussion of ECT referral.
[2019-01-28] MEDS: LITHIUM CARBONATE 300 MG CAP PO SCH ×2 (15:09→21:26)
[2019-01-28 17:27] LABS: Glucose,Whole Blood 88 mg/dL (75-99)
[2019-01-28 20:01] LABS: Glucose,Whole Blood 151 mg/dL (75-99)
[2019-01-28] MEDS: PRAZOSIN 1 MG CAP PO SCH (21:26)
[2019-01-28] MEDS: QUEtiapine 50 MG TAB PO SCH (21:26)
[2019-01-29 07:54] LABS: Glucose,Whole Blood 160 mg/dL (75-99)
[2019-01-29] MEDS: INSULIN DETEMIR (LEVEMIR) 100 UNIT/ML SYR SQ SCH (07:57)
[2019-01-29] MEDS: INSULIN ASPART (NovoLOG) 100 UNIT/ML VIAL SQ SCH ×3 (07:58→18:00)
[2019-01-29] MEDS: DULoxetine HCL 30 MG CAPSULE.DR PO SCH ×2 (09:00→21:23)
[2019-01-29] MEDS: metFORMIN 500 MG TAB PO SCH ×2 (09:00→17:57)
[2019-01-29] MEDS: PANTOPRAZOLE 40 MG TABLET PO SCH (09:00)
[2019-01-29] MEDS: ATORVASTATIN 20 MG TAB PO SCH (09:00)
[2019-01-29] MEDS: ALLOPURINOL 300 MG TAB PO SCH (09:00)
[2019-01-29] MEDS: LITHIUM CARBONATE 300 MG CAP PO SCH ×3 (09:00→21:23)
[2019-01-29] MEDS: GABAPENTIN 400 MG CAP PO SCH ×3 (09:00→21:23)
[2019-01-29] MEDS: ARIPiprazole 10 MG TAB PO SCH (09:00)
[2019-01-29] MEDS: buPROPion XL 300 MG TAB.ER.24H PO SCH (09:00)
[2019-01-29] MEDS: Empagliflozin/Linagliptin [Glyxambi 25 Mg-5 Mg Tablet] PO SCH (09:01)
[2019-01-29] MEDS: buPROPion XL 150 MG TAB.ER.24H PO SCH (09:43)
[2019-01-29] MEDS: VORTIOXETINE HYDROBROMIDE 10 MG TABLET PO SCH (09:43)
[2019-01-29 12:48] LABS: Glucose,Whole Blood 151 mg/dL (75-99)
--- NOTE | 2019-01-29 14:50 | P.PN ---
Progress Note - Text Progress Note Date: 01/29/19 Clinical Problems: Major depressive disorder recurrent severe without psychotic features, cocaine use disorder moderate, marijuana use disorder unspecified, rule out bipolar disorder, rule out personality disorder Interim history: I reviewed the medical record, interviewed the patient and discuss his treatment and treatment plan during team meeting. He denied experiencing any adverse effects to the initial dose of lithium. He remains depressed, anergic and anhedonic. He described persistent suicidal thoughts and wishes. We discussed ECT. He stated that he is "afraid" of the treatment. He's been taking both duloxetine and Wellbutrin "for several years" and of the 2 he was taking Wellbutrin the longest. We discussed treatment options and agreed to taper and discontinue Wellbutrin and begin a trial of Trintellix Mental status exam: He presented as morbidly obese 48-year-old male who looked younger than his stated age. He made intermittent eye contact. His speech and movements were slow. He showed poverty of speech. His affect was depressed and not reactive. He describes suicidal ideation and wishes. He expressed feelings of hopelessness, helplessness and worthlessness. He did not express ideas reference, paranoid ideation or delusional thoughts. His thinking was abstract and associations were coherent and logical. He denied hallucinations did not appear to be responding to internal stimuli. Assessment: He remains severely depressed with little response to the current treatment. I believe that he would benefit from ECT but remains apprehensive about the treatment and unwilling to consent. Plan: Continue inpatient hospitalization. Continue safety precautions. Continue to taper Abilify. Continue lithium 300 mg by mouth 3 times a day and titrated according to serum level with a target 0.6 and 1.0. Obtain lithium level at steady state. Taper and discontinue Wellbutrin XL. Continue duloxetine 30 mg twice a day. Begin Trintellix 10 mg daily. Continue allopurinol, Lipitor, Neurontin, [place], NovoLog, Levemir, Glucophage, Protonix, Minipress as prescribed by medicine service. Seroquel 50 mg at bedtime for sleep. Continue discussion of ECT referral.
[2019-01-29 18:01] LABS: Glucose,Whole Blood 85 mg/dL (75-99)
[2019-01-29 18:46] LABS: Glucose,Whole Blood 135 mg/dL (75-99)
[2019-01-29 20:08] LABS: Glucose,Whole Blood 127 mg/dL (75-99)
[2019-01-29] MEDS: QUEtiapine 50 MG TAB PO SCH (21:23)
[2019-01-29] MEDS: PRAZOSIN 1 MG CAP PO SCH (21:23)
[2019-01-30 07:44] LABS: Glucose,Whole Blood 205 mg/dL (75-99)
[2019-01-30] MEDS: metFORMIN 500 MG TAB PO SCH ×2 (08:06→17:35)
[2019-01-30] MEDS: PANTOPRAZOLE 40 MG TABLET PO SCH (08:06)
[2019-01-30] MEDS: ALLOPURINOL 300 MG TAB PO SCH (08:06)
[2019-01-30] MEDS: ARIPiprazole 10 MG TAB PO SCH (08:06)
[2019-01-30] MEDS: ATORVASTATIN 20 MG TAB PO SCH (08:06)
[2019-01-30] MEDS: GABAPENTIN 400 MG CAP PO SCH ×3 (08:07→21:56)
[2019-01-30] MEDS: LITHIUM CARBONATE 300 MG CAP PO SCH ×3 (08:07→21:54)
[2019-01-30] MEDS: DULoxetine HCL 30 MG CAPSULE.DR PO SCH ×2 (08:07→21:54)
[2019-01-30] MEDS: INSULIN DETEMIR (LEVEMIR) 100 UNIT/ML SYR SQ SCH (08:07)
[2019-01-30] MEDS: buPROPion XL 150 MG TAB.ER.24H PO SCH (08:07)
[2019-01-30] MEDS: VORTIOXETINE HYDROBROMIDE 10 MG TABLET PO SCH (08:07)
[2019-01-30] MEDS: INSULIN ASPART (NovoLOG) 100 UNIT/ML VIAL SQ SCH ×3 (08:08→18:08)
[2019-01-30] MEDS: Empagliflozin/Linagliptin [Glyxambi 25 Mg-5 Mg Tablet] PO SCH (09:23)
[2019-01-30 12:38] LABS: Glucose,Whole Blood 208 mg/dL (75-99)
--- NOTE | 2019-01-30 14:34 | P.PN ---
Progress Note - Text Progress Note Date: 01/30/19 Clinical Problems: Major depressive disorder recurrent severe without psychotic features, cocaine use disorder moderate, marijuana use disorder unspecified, rule out bipolar disorder, rule out personality disorder Interim history: I reviewed the medical record, interviewed the patient and discuss his treatment and treatment plan during team meeting. He remarked that he is feeling a bit better. He feels he has more energy and is able to attend sometherapeutic groups and activities. He commented that he took a shower this morning. He denied side effects to the initial dose of Trintellex. We then talked about ECT abd viewed the ECT educational video published by the [employer] entitled "ECT-Let's talk about it." He felt less concern about the procedure after viewing the video but remains apprehensive about consenting to the treatment. Mental status exam: He presented as morbidly obese 48-year-old male who looked younger than his stated age. He made intermittent eye contact. His speech and movements were slow. He showed poverty of speech. His affect was depressed and not reactive. He describes continued suicidal ideation and wishes. He expressed feelings of hopelessness, helplessness and worthlessness. He did not express ideas reference, paranoid ideation or delusional thoughts. His thinking was abstract and associations were coherent and logical. He denied hallucinations did not appear to be responding to internal stimuli. Assessment: He remains severely depressed with minimal response to the current treatment. I believe that he would benefit from ECT but remains apprehensive about the treatment and unwilling to consent. Plan: Continue inpatient hospitalization. Continue safety precautions. Discontinue Abilify 2-3 days. Continue lithium 300 mg by mouth 3 times a day and titrated according to serum level with a target 0.6 and 1.0. Obtain lithium level on 02/02/2019. Discontinue Wellbutrin XL on 02/02/2019. Continue duloxetine 30 mg twice a day. Continue Trintellix 10 mg daily. Continue allopurinol, Lipitor, Neurontin, [place], NovoLog, Levemir, Glucophage, Protonix, Minipress as prescribed by medicine service. Seroquel 50 mg at bedtime for sleep. Continue discussion of ECT referral.
[2019-01-30 17:40] LABS: Glucose,Whole Blood 156 mg/dL (75-99)
[2019-01-30 20:11] LABS: Glucose,Whole Blood 220 mg/dL (75-99)
[2019-01-30] MEDS: QUEtiapine 50 MG TAB PO SCH (21:54)
[2019-01-30] MEDS: PRAZOSIN 1 MG CAP PO SCH (21:54)
[2019-01-31 07:43] LABS: Glucose,Whole Blood 156 mg/dL (75-99)
[2019-01-31] MEDS: INSULIN ASPART (NovoLOG) 100 UNIT/ML VIAL SQ SCH ×3 (08:17→17:30)
[2019-01-31] MEDS: PANTOPRAZOLE 40 MG TABLET PO SCH (08:17)
[2019-01-31] MEDS: metFORMIN 500 MG TAB PO SCH ×2 (08:17→16:35)
[2019-01-31] MEDS: INSULIN DETEMIR (LEVEMIR) 100 UNIT/ML SYR SQ SCH (08:17)
[2019-01-31] MEDS: Empagliflozin/Linagliptin [Glyxambi 25 Mg-5 Mg Tablet] PO SCH (08:18)
[2019-01-31] MEDS: ALLOPURINOL 300 MG TAB PO SCH (08:18)
[2019-01-31] MEDS: buPROPion XL 150 MG TAB.ER.24H PO SCH (08:18)
[2019-01-31] MEDS: ATORVASTATIN 20 MG TAB PO SCH (08:18)
[2019-01-31] MEDS: DULoxetine HCL 30 MG CAPSULE.DR PO SCH ×2 (08:18→21:00)
[2019-01-31] MEDS: VORTIOXETINE HYDROBROMIDE 10 MG TABLET PO SCH (08:18)
[2019-01-31] MEDS: LITHIUM CARBONATE 300 MG CAP PO SCH ×3 (08:18→21:00)
[2019-01-31] MEDS: GABAPENTIN 400 MG CAP PO SCH ×3 (08:18→21:00)
[2019-01-31] MEDS: ARIPiprazole 10 MG TAB PO SCH (08:18)
[2019-01-31 12:45] LABS: Glucose,Whole Blood 182 mg/dL (75-99)
[2019-01-31 14:22] VITALS: BMI 48.7
--- NOTE | 2019-01-31 15:34 | P.PN ---
Progress Note - Text Progress Note Date: 01/31/19 Clinical Problems: Major depressive disorder recurrent severe without psychotic features, cocaine use disorder moderate, marijuana use disorder unspecified, rule out bipolar disorder, rule out personality disorder Interim history: I reviewed the medical record, interviewed the patient and discuss his treatment and treatment plan during team meeting. He complained of feeling worse than yesterday. He talked about his lack of energy and motivation. Unlike yesterday, he feels he is unable to attend therapeutic groups. He decided against ECT. Once again I emphasized that considering the duration and severity of his depression he would benefit from ECT. He is POC glucose has ranged from 156-224 last 24 hours. She requested to resume his outpatient dose of Levemir-80 units twice a day. Mental status exam: He presented as morbidly obese 48-year-old male who looked younger than his stated age. He made intermittent eye contact. His speech and movements were slow. He showed poverty of speech. His affect was depressed and not reactive. He describes continued suicidal ideation and wishes. He expressed feelings of hopelessness, helplessness and worthlessness. He did not express ideas reference, paranoid ideation or delusional thoughts. His thinking was abstract and associations were coherent and logical. He denied hallucinations did not appear to be responding to internal stimuli. Assessment: He remains severely depressed with minimal response to the current treatment. I believe that he would benefit from ECT but is opposed to the treatment and unwilling to consent. Plan: Continue inpatient hospitalization. Continue safety precautions. Discontinue Abilify. Continue lithium 300 mg by mouth 3 times a day and titrated according to serum level with a target 0.6 and 1.0. Obtain lithium level on 02/02/2019. Discontinue Wellbutrin XL on 02/02/2019. Continue duloxetine 30 mg twice a day. Continue Trintellix 10 mg daily. Continue allopurinol, Lipitor, Neurontin, [place], NovoLog, Levemir, Glucophage, Protonix, Minipress as prescribed by medicine service. Seroquel 50 mg at bedtime for sleep.
[2019-01-31 17:33] LABS: Glucose,Whole Blood 152 mg/dL (75-99)
[2019-01-31 20:23] LABS: Glucose,Whole Blood 67 mg/dL (75-99)
[2019-01-31] MEDS: QUEtiapine 50 MG TAB PO SCH (21:00)
[2019-01-31] MEDS: PRAZOSIN 1 MG CAP PO SCH (21:00)
[2019-01-31] MEDS: LORazepam 1 MG TAB PO PRN (21:01)
[2019-01-31 21:18] LABS: Glucose,Whole Blood 85 mg/dL (75-99)
[2019-02-01 07:47] LABS: Glucose,Whole Blood 175 mg/dL (75-99)
[2019-02-01] MEDS: INSULIN ASPART (NovoLOG) 100 UNIT/ML VIAL SQ SCH ×4 (07:53→18:55)
[2019-02-01] MEDS: INSULIN DETEMIR (LEVEMIR) 100 UNIT/ML SYR SQ SCH (07:54)
[2019-02-01] MEDS: ALLOPURINOL 300 MG TAB PO SCH (07:58)
[2019-02-01] MEDS: ATORVASTATIN 20 MG TAB PO SCH (07:58)
[2019-02-01] MEDS: PANTOPRAZOLE 40 MG TABLET PO SCH (07:58)
[2019-02-01] MEDS: buPROPion XL 150 MG TAB.ER.24H PO SCH (07:58)
[2019-02-01] MEDS: metFORMIN 500 MG TAB PO SCH ×2 (07:58→17:43)
[2019-02-01] MEDS: GABAPENTIN 400 MG CAP PO SCH ×3 (07:59→21:17)
[2019-02-01] MEDS: VORTIOXETINE HYDROBROMIDE 10 MG TABLET PO SCH (07:59)
[2019-02-01] MEDS: DULoxetine HCL 30 MG CAPSULE.DR PO SCH ×2 (07:59→21:17)
[2019-02-01] MEDS: LITHIUM CARBONATE 300 MG CAP PO SCH ×3 (07:59→21:17)
[2019-02-01] MEDS: Empagliflozin/Linagliptin [Glyxambi 25 Mg-5 Mg Tablet] PO SCH (08:02)
[2019-02-01 12:33] LABS: Glucose,Whole Blood 168 mg/dL (75-99)
--- NOTE | 2019-02-01 12:37 | P.PN ---
Progress Note - Text Progress Note Date: 02/01/19 Clinical Problems: Major depressive disorder recurrent severe without psychotic features, cocaine use disorder moderate, marijuana use disorder unspecified, rule out bipolar disorder, rule out personality disorder Interim history: I reviewed the medical record, interviewed the patient and discuss his treatment and treatment plan during team meeting. He remarked that this morning was the first he woke up without having thoughts of suicide. He began attending therapeutic groups and activities yesterday evening and went to group therapy this morning. He was more expressive and engaged than in prior encounters. We talked about how he might identify early signs of recurrence of his depre ssions. Mental status exam: He presented as morbidly obese 48-year-old male who looked younger than his stated age. He made eye contact. His speech and movements were slow. His speech was spontaneous but with decreased rate and rhythm. His affect was depressed and showed some reactivity. He denied current suicidal thoughts or wishes. He feels less hopeless. He did not express ideas reference, paranoid ideation or delusional thoughts. His thinking was abstract and associations were coherent and logical. He denied hallucinations did not appear to be responding to internal stimuli. Assessment: He is showing early signs of remission. Plan: Continue inpatient hospitalization. Continue safety precautions. Continue lithium 300 mg by mouth 3 times a day and titrated according to serum level with a target 0.6 and 1.0. Obtain lithium level on 02/02/2019. Discontinue Wellbutrin XL on 02/02/2019. Continue duloxetine 30 mg twice a day. Continue Trintellix 10 mg daily. Continue allopurinol, Lipitor, Neurontin, [place], NovoLog, Levemir, Glucophage, Protonix, Minipress as prescribed by medicine service. Seroquel 50 mg at bedtime for sleep.
[2019-02-01 17:45] LABS: Glucose,Whole Blood 118 mg/dL (75-99)
[2019-02-01 18:55] LABS: Glucose,Whole Blood 164 mg/dL (75-99)
[2019-02-01 20:11] LABS: Glucose,Whole Blood 147 mg/dL (75-99)
[2019-02-01] MEDS: PRAZOSIN 1 MG CAP PO SCH (21:17)
[2019-02-01] MEDS: QUEtiapine 50 MG TAB PO SCH (21:17)
[2019-02-02 07:42] LABS: Glucose,Whole Blood 204 mg/dL (75-99)
[2019-02-02] MEDS: INSULIN DETEMIR (LEVEMIR) 100 UNIT/ML SYR SQ SCH (07:52)
[2019-02-02] MEDS: INSULIN ASPART (NovoLOG) 100 UNIT/ML VIAL SQ SCH ×3 (07:52→17:42)
[2019-02-02] MEDS: PANTOPRAZOLE 40 MG TABLET PO SCH (08:33)
[2019-02-02] MEDS: ALLOPURINOL 300 MG TAB PO SCH (08:33)
[2019-02-02] MEDS: metFORMIN 500 MG TAB PO SCH ×2 (08:33→17:40)
[2019-02-02] MEDS: ATORVASTATIN 20 MG TAB PO SCH (08:33)
[2019-02-02] MEDS: buPROPion XL 150 MG TAB.ER.24H PO SCH (08:33)
[2019-02-02] MEDS: Empagliflozin/Linagliptin [Glyxambi 25 Mg-5 Mg Tablet] PO SCH (08:34)
[2019-02-02] MEDS: VORTIOXETINE HYDROBROMIDE 10 MG TABLET PO SCH (08:34)
[2019-02-02] MEDS: DULoxetine HCL 30 MG CAPSULE.DR PO SCH ×2 (08:34→20:17)
[2019-02-02] MEDS: GABAPENTIN 400 MG CAP PO SCH ×3 (08:34→21:06)
[2019-02-02] MEDS: LITHIUM CARBONATE 300 MG CAP PO SCH ×3 (08:34→21:06)
[2019-02-02 08:51] LABS: African American GFR (CKD) >90 (>60 ml/min/1.73 sqM); Anion Gap 8 mmol/L; Blood Urea Nitrogen 12 mg/dL (9-20); Carbon Dioxide 31 mmol/L (22-30); Chloride 101 mmol/L (98-107); Glucose 222 mg/dL (74-99); Lithium 0.7 mmol/L; Non-African American GFR(CKD) >90 (>60 ml/min/1.73 sqM); Potassium 4.5 mmol/L (3.5-5.1); Sodium 140 mmol/L (137-145)
[2019-02-02 12:44] LABS: Glucose,Whole Blood 180 mg/dL (75-99)
--- NOTE | 2019-02-02 14:02 | P.PN ---
Progress Note - Text Progress Note Date: 02/02/19 Interval history: The patient was seen lying down in his bed and was agreeable to speech and language specialist in the office. Patient appeared to have poor hygiene and grooming however was directable and agreeable to speak to rfp writer and was cooperative during interview. Patient spoke about going to groups and "getting a lot out of them" however was not able to verbalize what the topics were about. He states that he does not feel suicidal today she is a relief for him and claims that the medications are helping him. Patient asked several questions about lithium and his level which was drawn earlier today. Patient claims that his energy has been improving and his appetite is fair. He states he slept the night. At this time patient denies any suicidal or homicidal ideations intent or plan. Denies any Auditory or visual hallucinations. Patient denies any side effects from the medications and has been compliant with meds. Mental status exam: General Appearance: Patient appears to be obese, stated age is alert, pleasant, and cooperative. Poor hygiene and grooming. Behavior: No agitated behavior. Patient is calm and directable Speech: Patient's speech is fluent and nonpressured. Soft-spoken Mood/Affect: Mood is improving, affect is congruent and constricted. Suicidality/Homicidality: Patient denies having any suicidal or homicidal ideation intent or plan. Perceptions: Patient denies any auditory or visual hallucinations. Though content/process: There is no evidence of any delusional thought content and thought process is linear and goal-directed. Memory and concentration: AOX3, grossly intact for the purposes of this session Judgment and insight: improving Assessment/Plan: Continue with current diagnosis. Patient continues to meet criteria for inpatient psychiatric admission for symptom stabilization and safety.Patient will be maintained on current psychotropic medication regimen. Patient's lithium level was drawn today and was 0.7. Monitor for medication compliance and for any psychotropic medication side effects. Will continue to monitor ongoing response to treatment.
[2019-02-02 17:41] LABS: Glucose,Whole Blood 134 mg/dL (75-99)
[2019-02-02 20:16] LABS: Glucose,Whole Blood 154 mg/dL (75-99)
[2019-02-02] MEDS: PRAZOSIN 1 MG CAP PO SCH (20:16)
[2019-02-02] MEDS: QUEtiapine 50 MG TAB PO SCH (20:16)
[2019-02-02] MEDS: LORazepam 1 MG TAB PO PRN (21:10)
[2019-02-03 07:44] LABS: Glucose,Whole Blood 186 mg/dL (75-99)
[2019-02-03] MEDS: INSULIN ASPART (NovoLOG) 100 UNIT/ML VIAL SQ SCH ×3 (07:46→17:32)
[2019-02-03] MEDS: INSULIN DETEMIR (LEVEMIR) 100 UNIT/ML SYR SQ SCH (07:48)
[2019-02-03] MEDS: PANTOPRAZOLE 40 MG TABLET PO SCH (07:50)
[2019-02-03] MEDS: metFORMIN 500 MG TAB PO SCH ×2 (07:50→18:37)
[2019-02-03] MEDS: ALLOPURINOL 300 MG TAB PO SCH (08:43)
[2019-02-03] MEDS: ATORVASTATIN 20 MG TAB PO SCH (08:43)
[2019-02-03] MEDS: DULoxetine HCL 30 MG CAPSULE.DR PO SCH ×2 (08:44→22:11)
[2019-02-03] MEDS: GABAPENTIN 400 MG CAP PO SCH ×3 (08:44→22:11)
[2019-02-03] MEDS: VORTIOXETINE HYDROBROMIDE 10 MG TABLET PO SCH (08:44)
[2019-02-03] MEDS: LITHIUM CARBONATE 300 MG CAP PO SCH ×3 (08:45→22:11)
[2019-02-03] MEDS: Empagliflozin/Linagliptin [Glyxambi 25 Mg-5 Mg Tablet] PO SCH (09:26)
--- NOTE | 2019-02-03 11:03 | P.PN ---
Progress Note - Text Progress Note Date: 02/03/19 Interval history: The patient was seen lying down in his bed and was agreeable to technical writer in the office. Patient appears to continue to have poor hygiene and grooming. patient did seem brighter today and his affect and states that he is feeling well. He did complain of having difficulty initiating sleep therefore he was laying down this morning. He claims that he is going to groups and finding them helpful. he states that he is continuing to not feel suicidal. patient asked about possibly increasing his Seroquel however was informed of the risks of possible metabolic side effects and patient was more agreeable to start melatonin for sleep. Patient claims that his energy has been improving and his appetite is fair. At this time patient denies any suicidal or homicidal ideations intent or plan. Denies any Auditory or visual hallucinations. Patient denies any side effects from the medications and has been compliant with meds. Mental status exam: General Appearance: Patient appears to be obese, stated age is alert, pleasant, and cooperative. Poor hygiene and grooming. Behavior: No agitated behavior. Patient is calm and directable Speech: Patient's speech is fluent and nonpressured. Mood/Affect: Mood is improving, affect is congruent and constricted. Suicidality/Homicidality: Patient denies having any suicidal or homicidal ideation intent or plan. Perceptions: Patient denies any auditory or visual hallucinations. Though content/process: There is no evidence of any delusional thought content and thought process is linear and goal-directed. Memory and concentration: AOX3, grossly intact for the purposes of this session Judgment and insight: improvingmildly. Assessment/Plan: Continue with current diagnosis. Patient continues to meet criteria for inpatient psychiatric admission for symptom stabilization and safety.Patient will be maintained on current psychotropic medication regimen. added melatonin 3 mg daily at bedtime for sleep. Monitor for medication compliance and for any psychotropic medication side effects. Will continue to monitor ongoing response to treatment.
[2019-02-03 12:32] LABS: Glucose,Whole Blood 202 mg/dL (75-99)
[2019-02-03 17:31] LABS: Glucose,Whole Blood 124 mg/dL (75-99)
[2019-02-03 20:12] LABS: Glucose,Whole Blood 111 mg/dL (75-99)
[2019-02-03] MEDS: QUEtiapine 50 MG TAB PO SCH (22:11)
[2019-02-03] MEDS: MELATONIN 3 MG TABLET PO SCH (22:11)
[2019-02-03] MEDS: PRAZOSIN 1 MG CAP PO SCH (22:11)
[2019-02-04 07:10] VITALS: TEMP 97.9
[2019-02-04 07:40] LABS: Glucose,Whole Blood 172 mg/dL (75-99)
[2019-02-04] MEDS: metFORMIN 500 MG TAB PO SCH ×2 (07:53→17:47)
[2019-02-04] MEDS: ALLOPURINOL 300 MG TAB PO SCH (07:54)
[2019-02-04] MEDS: PANTOPRAZOLE 40 MG TABLET PO SCH (07:54)
[2019-02-04] MEDS: DULoxetine HCL 30 MG CAPSULE.DR PO SCH ×2 (07:54→21:09)
[2019-02-04] MEDS: ATORVASTATIN 20 MG TAB PO SCH (07:54)
[2019-02-04] MEDS: VORTIOXETINE HYDROBROMIDE 10 MG TABLET PO SCH (07:55)
[2019-02-04] MEDS: Empagliflozin/Linagliptin [Glyxambi 25 Mg-5 Mg Tablet] PO SCH (07:55)
[2019-02-04] MEDS: GABAPENTIN 400 MG CAP PO SCH ×3 (07:55→21:08)
[2019-02-04] MEDS: LITHIUM CARBONATE 300 MG CAP PO SCH ×3 (07:55→21:08)
[2019-02-04] MEDS: INSULIN DETEMIR (LEVEMIR) 100 UNIT/ML SYR SQ SCH (07:56)
[2019-02-04] MEDS: INSULIN ASPART (NovoLOG) 100 UNIT/ML VIAL SQ SCH ×3 (07:56→17:45)
[2019-02-04 12:52] LABS: Glucose,Whole Blood 230 mg/dL (75-99)
--- NOTE | 2019-02-04 13:55 | P.PN ---
Progress Note - Text Progress Note Date: 02/04/19 Interval History: Patient is a 48-year-old male, his chart was reviewed and the patient was seen. Patient reports that he's been feeling much less depressed and has not had any suicidal thoughts for the last 2 days and is currently feeling much more hopeful about the future. Patient said that prior to admission he had not been taking care of his diabetes nor taking his medication for the last month. States that his diabetes is under much better control. He reports that he is sleeping well, and that his mood has improved. He reports no side effects from being started on lithium. He also reports no side effects from Trintellix which she was also started on. Patient states that he's been attending groups and states that once he is discharged and return to [facility] he plans on attending classes that they have set up for him. Mental Status: Appearance/Attitude: The patient is casually dressed, makes eye contact and was cooperative Behavior: Patient did not exhibit any psychomotor agitation or retardation. Speech/Language: Patient's speech was spontaneous of normal volume and rhythm and he was coherent Thought Process: Patient was goal-directed there is no evidence of loose association or flight of ideas Thought Content: Patient denied any auditory or visual hallucinations and no delusions or paranoid ideation were elicited. Patient states that he's been feeling much better the last several days, reporting that he is more hopeful about the future. He reports that his diabetes is under better control and that he has plans to follow up with classes that he been set up for him at [facility], stating that he wasn't always compliant with that. Patient states that he sees the need to be compliant with medications as he had stopped his medications a month prior to admission. Patient also reports that he was using cocaine and marijuana prior to his admission and sees that this was problematic. He reports that his appetite is good and that he slept well last evening Suicidal/Homicidal Ideation: Patient denies any current suicidal or homicidal ideation Sensorium/Cognition: Patient is alert and oriented to person, place, and time and his recent and remote memory are grossly intact Mood/Affect: Patient's mood is less depressed, he is more hopeful and his affect was appropriate to his mood Insight/Judgment: Patient's insight and judgment are improved Assessment: Patient reports that he is doing better on the new medications, has been feeling less depressed and is more hopeful and has not had any suicidal thoughts for the last 2 days. He reports that he is eating well and his sleep was restful last evening. States that he's been attending groups and activities. He reports that he plans to return to live with his 2 roommates on discharge and states that he'll be more compliant with therapy and educational classes and his medications once he is discharged. Patient reported no side effects from the medications. Patient's lithium level was 0.7 on a total dose of 900 mg of lithium a day. Plan: Patient will continue on lithium 300 mg 3 times a day, his blood level was within the therapeutic range, he'll continue on Cymbalta 30 mg twice a day, Seroquel 50 mg at bedtime and melatonin 3 mg at bedtime for sleep. Patient will also continue on Trintellix 10 mg daily. Patient and I discussed the need to be compliant with medication and his readiness for discharge and will plan his discharge for tomorrow. Patient was agreeable with this plan.
[2019-02-04 17:41] LABS: Glucose,Whole Blood 159 mg/dL (75-99)
[2019-02-04 20:10] LABS: Glucose,Whole Blood 161 mg/dL (75-99)
[2019-02-04] MEDS: QUEtiapine 50 MG TAB PO SCH (21:08)
[2019-02-04] MEDS: PRAZOSIN 1 MG CAP PO SCH (21:08)
[2019-02-04] MEDS: MELATONIN 3 MG TABLET PO SCH (21:08)
[2019-02-05 06:32] VITALS: BP 131/76; PULSE 79; RESP 16
[2019-02-05 07:53] LABS: Glucose,Whole Blood 183 mg/dL (75-99)
[2019-02-05] MEDS: INSULIN DETEMIR (LEVEMIR) 100 UNIT/ML SYR SQ SCH (08:00)
[2019-02-05] MEDS: INSULIN ASPART (NovoLOG) 100 UNIT/ML VIAL SQ SCH ×2 (08:00→13:05)
[2019-02-05] MEDS: GABAPENTIN 400 MG CAP PO SCH (08:05)
[2019-02-05] MEDS: metFORMIN 500 MG TAB PO SCH (08:05)
[2019-02-05] MEDS: PANTOPRAZOLE 40 MG TABLET PO SCH (08:05)
[2019-02-05] MEDS: ATORVASTATIN 20 MG TAB PO SCH (08:06)
[2019-02-05] MEDS: ALLOPURINOL 300 MG TAB PO SCH (08:06)
[2019-02-05] MEDS: DULoxetine HCL 30 MG CAPSULE.DR PO SCH (08:06)
[2019-02-05] MEDS: LITHIUM CARBONATE 300 MG CAP PO SCH (08:06)
[2019-02-05] MEDS: Empagliflozin/Linagliptin [Glyxambi 25 Mg-5 Mg Tablet] PO SCH (08:07)
[2019-02-05] MEDS: VORTIOXETINE HYDROBROMIDE 10 MG TABLET PO SCH (08:07)
--- NOTE | 2019-02-05 10:20 | P.DS ---
Providers Date of admission: 01/24/19 18:38 Expected date of discharge: 02/05/19 Attending physician: Liyah Alexander MD Consults: 01/24/19 19:48 Consult Physician Routine Consulting Provider: Dillon Magnaa Consult Reason/Comments: H & P and medical care Do you want consulting provider notified?: Yes 01/31/19 10:47 Consult Physician Routine Consulting Provider: Dillon Magana Consult Reason/Comments: Elev. blood glucoses. Restart Levimir BID? Do you want consulting provider notified?: Yes Primary care physician: Rachana Harper [facility] Course: Discharge Diagnosis: Major depressive disorder, recurrent severe without psychotic features, cocaine use disorder, moderate, marijuana use disorder Reason for Admission: Patient is a 48-year-old male who presented to the [facility] room complaining of depression, suicidal ideation and a suicide attempt. Patient states that he tried to kill himself prior to admission by smoking cocaine and "exploding my heart". He had stopped all of his medications including his medications for his medical problems for about a month prior to admission. He states that he hoped he would because of this and complained of feeling depressed, hopeless and helpless. He had continued thoughts of and suicide and expressed a wish to . He states that he always feels depressed but things have worsened over the last 2 months. He was unable to identify particular stress for this. Patient was able to describe increasing symptoms of depression and suicidal ideation and also reported impaired sleep, decreased energy, difficulty with concentration and a lack of ability to enjoy himself and persistent feelings of guilt. He complained of chronic anxiety that is always present. Patient denied any psychotic symptoms and no delusions or paranoid ideation were elicited. Patient was initially admitted to the medical floor due to an elevated glucose as patient had not been taking his insulin and was stabilized and then trans ferred to the inpatient psychiatric unit where he signed in as a voluntary patient. Patient has had psychiatric admissions since the age of 12 and was recently admitted earlier in 2019. Patient has had at least 9 prior admissions, including 5 to this unit. Patient was currently taking Cymbalta 20 mg twice a day, Seroquel 50 mg at bedtime, Abilify 20 mg a day, Wellbutrin extended release 300 mg daily and states he had not been compliant with his medication. Patient is also followed up at [facility] and he states that he has not been compliant with his outpatient treatment. Hospital Course: Patient was admitted on a voluntary basis, placed on routine observation and group and activity therapy were ordered. A medical consultation was ordered and the patient was placed on his prior medications for his medical problems. Patient was initially continued on his current psychiatric medications. Due to the patient's multiple trials of prior anti-Prestons, discussion regarding ECT as a treatment was given and the patient declined. Patient was then slowly titrated off of Abilify and begun on lithium as an augmentation for his antidepressant treatment. Patient's Cymbalta was increased to 30 mg twice a day. Patient's Wellbutrin was then tapered and discontinued and he was begun on treatment trintellix 10 mg daily. Patient was eventually titrated to a dose of lithium 300 mg 3 times a day, Cymbalta 30 mg twice a day, Trintellix 10 mg daily and continued on Seroquel 50 mg at bedtime. Melatonin was also begun at bedtime to assist with his sleep. Patient was compliant with medication on the unit and was attending groups and activities, patient began to respond to the treatment changes and reported that his mood was improving he was feeling more hopeful, less depressed and was no longer having any suicidal ideation. Patient stated that his sleep had improved he was feeling less tired. Patient's blood sugars were under better control. Patient was maintained on his medications for his medical problems. Patient continued to show improvement and reported no side effects from his medication is lithium level was 0.7 on 900 mg per day and the patient reported feeling hopeful, less depressed no longer feeling suicidal, more interested in returning to treatment and attending outpatient therapy classes at [facility]. Patient felt that the changes and adjustments to his medications had improved his mood and he felt that he was ready for discharge. Allergies/Test results Laboratory Last Values Sodium 140 mmol/L (137-145) 02/02/19 07:29 Potassium 4.5 mmol/L (3.5-5.1) 02/02/19 07:29 Chloride 101 mmol/L (98-107) 02/02/19 07:29 Carbon Dioxide 31 mmol/L (22-30) H 02/02/19 07:29 Anion Gap 8 mmol/L 02/02/19 07:29 BUN 12 mg/dL (9-20) 02/02/19 07:29 Creatinine 0.72 mg/dL (0.66-1.25) 02/02/19 07:29 Est GFR (CKD-EPI)AfAm >90 (>60 ml/min/1.73 sqM) 02/02/19 07:29 Est GFR (CKD-EPI)NonAf >90 (>60 ml/min/1.73 sqM) 02/02/19 07:29 Glucose 222 mg/dL (74-99) H 02/02/19 07:29 POC Glucose (mg/dL) 183 mg/dL (75-99) H 02/05/19 07:51 POC Glu Medical Office Supervisor ID Maxwell Morocho 02/05/19 07:51 Calcium 10.0 mg/dL (8.4-10.2) 02/02/19 07:29 [place] 0.7 mmol/L 02/02/19 07:29 Allergies ibuprofen [From Motrin] Allergy (Verified 01/24/19 19:06) Rash/Hives Patient states no issue with aspirin Discharge Mental Status: Appearance/Attitude: Patient is casually dressed, makes eye contact and was cooperative. Behavior: Patient did not display any psychomotor agitation or retardation. Speech/Language: Patient's speech was spontaneous of normal volume and rhythm and he was coherent. Thought Process: Patient was goal-directed there was no evidence of loose associations or flight of ideas Thought Content: Patient denied any auditory or visual hallucinations and no d elusions or paranoid ideation were elicited. Patient denied feeling hopeless or helpless and stated that he was feeling more hopeful about the future, was looking forward to attending classes at [facility] and states that his sleep and appetite were good. Patient states that he was feeling more energized. Suicidal/Homicidal Ideation: Patient denied any current suicidal or homicidal ideation Sensorium/Cognition: Patient was alert and oriented to person, place, and time and his recent and remote memory were grossly intact Mood/Affect: Patient's mood was less depressed, his affect was brighter Insight/Judgment: Patient's insight and judgment are fair Risk Assessment: Patient's risk for readmission is moderate should he not be compliant with medication and use drugs and/or alcohol Discharge Plan: Patient will return home to live with his roommates, he will follow up at [facility] and has an appointment on February 06. Patient will continue on his current medications for his medical problems and continue on Cymbalta 30 mg twice a day, lithium carbonate 300 mg 3 times a day, melatonin 3 mg at bedtime, Trintellix 10 mg in the morning, and Seroquel 50 mg at bedtime. Patient reports that he has sufficient testing supplies and insulin at home, he was given needed prescriptions. Patient was encouraged to be compliant with medications and outpatient treatment as well as to avoid all alcohol and drugs. Patient Condition at Discharge: Stable Plan - Discharge Summary Discharge Rx Participant: No New Discharge Prescriptions: New DULoxetine HCL [Cymbalta] 30 mg PO BID #28 capsule. [place] Carbonate 300 mg PO TID #42 cap Melatonin 3 mg PO HS #30 tablet Vortioxetine Hydrobromide [Trintellix] 10 mg PO DAILY #14 tablet INSULIN ASPART (NovoLOG) [NovoLOG (formulary)] 20 unit SQ AC-SUPPER #1 pen Continue Atorvastatin [Lipitor] 20 mg PO DAILY tab Allopurinol [Zyloprim] 300 mg PO DAILY tab Prazosin [Minipress] 1 mg PO HS metFORMIN HCL 1,000 mg PO BID QUEtiapine [SEROquel] 50 mg PO HS Gabapentin [Neurontin] 400 mg PO TID #42 cap Pantoprazole [Protonix] 40 mg PO AC-BRKFST #14 tablet. Insulin Aspart [NovoLOG] 20 units SQ AC-SUPPER Insulin Detemir [Levemir Flextouch] 80 unit SQ DAILY #1 pen Insulin Aspart [NovoLOG Flexpen] 40 unit SQ 0800,1200 #1 pen Discontinued buPROPion HCL [Wellbutrin XL] 300 mg PO DAILY DULoxetine HCL [Cymbalta] 20 mg PO BID ARIPiprazole [Abilify] 20 mg PO DAILY Empagliflozin/Linagliptin [Glyxambi 25 mg-5 mg Tablet] 1 tab PO DAILY Potassium Chloride [Klor-Con 10] 10 meq PO DAILY Indomethacin [Indocin] 25 mg PO TID Hydrocodone/Acetaminophen [Kosse 10-325] 1 tab PO TID PRN PRN Reason: Pain Phentermine HCl [Adipex-P] 37.5 mg PO DAILY Furosemide [Lasix] 20 mg PO DAILY Discharge Medication List Allopurinol [Zyloprim] 300 mg PO DAILY tab 01/23/18 [Rx] Atorvastatin [Lipitor] 20 mg PO DAILY tab 01/23/18 [Rx] Prazosin [Minipress] 1 mg PO HS 05/11/18 [History] metFORMIN HCL 1,000 mg PO BID 01/22/19 [History] QUEtiapine [SEROquel] 50 mg PO HS 01/24/19 [History] DULoxetine HCL [Cymbalta] 30 mg PO BID #28 capsule. 02/05/19 [Rx] Gabapentin [Neurontin] 400 mg PO TID #42 cap 02/05/19 [Rx] INSULIN ASPART (NovoLOG) [NovoLOG (formulary)] 20 unit SQ AC-SUPPER #1 pen 02/05/19 [Rx] Insulin Aspart [NovoLOG Flexpen] 40 unit SQ 0800,1200 #1 pen 02/05/19 [Rx] Insulin Aspart [NovoLOG] 20 units SQ AC-SUPPER 02/05/19 [History] Insulin Detemir [Levemir Flextouch] 80 unit SQ DAILY #1 pen 02/05/19 [Rx] [place] Carbonate 300 mg PO TID #42 cap 02/05/19 [Rx] Melatonin 3 mg PO HS #30 tablet 02/05/19 [Rx] Pantoprazole [Protonix] 40 mg PO AC-BRKFST #14 tablet. 02/05/19 [Rx] Vortioxetine Hydrobromide [Trintellix] 10 mg PO DAILY #14 tablet 02/05/19 [Rx] Follow up Appointment(s)/Referral(s): [facility] [Outside] - 02/06/19 1:30 pm (02-06-19 @ 1:30 with Alexi Salamanca 02-07-19 @ 10:[address] Ramirez) [facility] [NON-STAFF] - 1 Week Patient Instructions/Handouts: Cocaine Abuse (DC), Depression (DC) Activity/Diet/Wound Care/Special Instructions: Activity and diet as tolerated. Avoid the use of street drugs and alcohol. Take all medications as prescribed. When you are in need of refills on your medications please contact your medical provider and/or outpatient psychiatrist to have this done. Please go to scheduled outpatient appointment for aftercare treatment. If symptoms return or become worse, call the crisis line at and/or go to the nearest emergency room for evaluation. Discharge Disposition: HOME SELF-CARE
[2019-02-05 13:02] LABS: Glucose,Whole Blood 178 mg/dL (75-99)
== END 2019-02-05 13:58 | disposition home or self-care (01) | DRG 885 ==
LOC: 3MHU 18:38
PROVIDERS: ADMIT Psychiatry & Neurology Psychiatry; ATTEND Psychiatry & Neurology Psychiatry
DX: F33.2 Major depressive disorder, recurrent severe without psychotic features (principal); F14.20 Cocaine dependence, uncomplicated; R45.851 Suicidal ideations; E11.42 Type 2 diabetes mellitus with diabetic polyneuropathy; E11.65 Type 2 diabetes mellitus with hyperglycemia; E78.5 Hyperlipidemia, unspecified; F12.90 Cannabis use, unspecified, uncomplicated; F41.9 Anxiety disorder, unspecified; G56.00 Carpal tunnel syndrome, unspecified upper limb; I10 Essential (primary) hypertension; Z81.8 Family history of other mental and behavioral disorders; Z79.899 Other long term (current) drug therapy; Z91.14 Patient's other noncompliance with medication regimen; Z91.19 Patient's noncompliance with other medical treatment and regimen; Z91.410 Personal history of adult physical and sexual abuse
CPT/HCPCS: 80048; 80178

== ENCOUNTER 2019-03-30 15:22 | Inpatient (IN) | payer MEDICARE, OTHER ==
[2019-03-30 15:31] LABS: Glucose,Whole Blood >600 mg/dL (75-99)
[2019-03-30 16:26] LABS: Basophils # (A) 0.2 k/uL (0-0.2); Basophils % (A) 2 %; Eosinophils # (A) 0.1 k/uL (0-0.7); Eosinophils % (A) 1 %; HCT 54.7 % (39.0-53.0); HGB 17.7 gm/dL (13.0-17.5); Lymphocytes # (A) 1.5 k/uL (1.0-4.8); Lymphocytes % (A) 13 %; MCH 29.6 pg (25.0-35.0); MCHC 32.3 g/dL (31.0-37.0); MCV 91.8 fL (80.0-100.0); Mean Platelet Volume 10.1; Monocytes # (A) 0.4 k/uL (0-1.0); Monocytes % (A) 4 %; Neutrophils # (A) 9.4 k/uL (1.3-7.7); Neutrophils % (A) 80 %; Platelet Count 213 k/uL (150-450); RBC 5.96 m/uL (4.30-5.90); RDW 13.2 % (11.5-15.5); WBC 11.8 k/uL (3.8-10.6)
[2019-03-30] MEDS ORDERED: SODIUM CHLORIDE 0.9% 1,000 ML IV STA (16:30)
[2019-03-30 16:35] LABS: Appearance,Urine Clear (Clear); Bacteria,Urine Rare /hpf; Bilirubin,Urine Negative (Negative); Blood,Urine Negative (Negative); Color,Urine Light Yellow; Glucose,Urine (UA) 4+ (Negative); Ketones,Urine 1+ (Negative); Leukocyte Esterase,Urine Moderate (Negative); Nitrite,Urine Negative (Negative); Protein,Urine Negative (Negative); Specific Gravity,Urine 1.029 (1.001-1.035); Squamous Epithelial Cell,Urine 2 /hpf (0-4); Urobilinogen,Urine <2.0 mg/dL (<2.0); WBC,Urine 2 /hpf (0-5)
[2019-03-30 16:39] LABS: African American GFR (CKD) >90 (>60 ml/min/1.73 sqM); Alcohol <10 mg/dL; Anion Gap 13 mmol/L; Blood Urea Nitrogen 16 mg/dL (9-20); Calcium 9.5 mg/dL (8.4-10.2); Carbon Dioxide 19 mmol/L (22-30); Chloride 95 mmol/L (98-107); Non-African American GFR(CKD) >90 (>60 ml/min/1.73 sqM); Potassium 5.3 mmol/L (3.5-5.1); Sodium 127 mmol/L (137-145)
[2019-03-30 16:50] LABS: Glucose 766 mg/dL (74-99)
[2019-03-30 16:59] LABS: Amphetamine Screen,Urine Not Detected (NotDetected); Barbiturate Screen,Urine Not Detected (NotDetected); Benzodiazepines Screen,Urine Not Detected (NotDetected); Cocaine Screen,Urine Detected (NotDetected); Methadone Screen, Urine Not Detected (NotDetected); Opiate Screen,Urine Not Detected (NotDetected); Oxycodone Screen, Urine Not Detected (NotDetected); Phencyclidine Screen,Urine Not Detected (NotDetected); Tricyclic Antidepressant,Urine Not Detected (NotDetected); Urn Cannabinoid Scrn Not Detected (NotDetected)
[2019-03-30] MEDS ORDERED: Magnesium Replacement Protocol 1 EACH MISC MISCELLANE PRN (17:05)
[2019-03-30] MEDS ORDERED: Potassium Replacement Protocol 1 EACH MISC MISCELLANE PRN (17:05)
[2019-03-30] MEDS ORDERED: INSULIN REGULAR 100 UNIT in SODIUM CHLORIDE 0.9% 100 ML IV SCH (17:15)
[2019-03-30 17:44] LABS: Glucose,Whole Blood 544 mg/dL (75-99)
[2019-03-30] MEDS ORDERED: NALOXONE 0.4 MG/ML 1 ML VIAL IV PRN (17:48)
--- NOTE | 2019-03-30 17:48 | ED ---
General Adult HPI - General Chief complaint: Psychiatric Symptoms Stated complaint: EPS eval, elevated blood sugar Time Seen by Provider: 03/30/19 15:58 Source: patient Mode of arrival: ambulatory Limitations: no limitations - History of Present Illness Initial comments: Dictation was produced using [employer] dictation software. please excuse any gram matical, word or spelling errors. Chief Complaint: 48-year-old male past medical history of depression and insulin-dependent diabetes mellitus presents with suicidal ideation and elevated blood sugar. History of Present Illness: Patient is 48-year-old male who has multiple comorbidities. Patient states he presents here today because of depression and suicidal ideation. Patient also checked her sugar because he felt off. He is found to be critically high. Patient states he is depressed over not depressed about anything in particular. Patient reports he has been battling depression for the last several years. Patient has not checked or take care of himself and his diabetes for the last month. He states of a subjective sugar was a month ago. Patient is suicidal and does not want to take his medications nor to harm himself. He states he feels slightly lightheaded has diffuse abdominal pain. The ROS documented in this emergency department record has been reviewed and confirmed by me. Those systems with pertinent positive or negative responses have been documented in the HPI. All other systems are other negative and/or noncontributory. PHYSICAL EXAM: General Impression: Alert and oriented x3, not in acute distress, obese HEENT: Normocephalic atraumatic, extra-ocular movements intact, pupils equal and reactive to light bilaterally, dry mucous membranes Cardiovascular: Tachycardic Chest: Lungs clear to auscultation bilaterally, no rhonchi, no wheeze, no rales Abdomen: Bowel sounds present, abdomen soft, non-tender, non-distended, no organomegaly Musculoskeletal: Pulses present and equal in all extremities, no peripheral edema Motor: no focal deficits noted Neurological: CN II-XII grossly intact, no focal motor or sensory deficits noted Skin: Intact with no visualized rashes Psych: Normal affect and mood ED course: 48-year-old male presents with elevated blood sugars, diabetes medication noncompliance and suicidal ideation. Upon of shows heart rate of 105, 93% on room air. Rest of vital signs within acceptable limits. Bony care blood glucose was evaluated with greater than 600. Patient not showing any irregular breathing or signs of respiratory distress. He is well-appearing and appears to be in no significant distress. Patient is not altered at bedside. Laboratory evaluation obtained showing mild leukocytosis of 11.8, metabolic p svitlana shows sodium 127 glucose of 766. Anion gap acidosis of 13 with a bicarb of 19. Blood glucose measured at 766. 1+ ketones. Acetone negative. Coca presentation is concerning for diabetic ketoacidosis given degree of gap acidosis. Patient started on insulin drip. Given multiple boluses of i ntravenous fluids. Patient not showing any signs of hyperosmolar coma. There is likely some degree of dehydration. Discussed patient case with Dr. Marlow who is willing to accept patients care and to the intensive care unit. Pending discussion with [facility] hospitalist group. EKG interpretation: Ventricular rate 106, sinus tachycardia,. Interval 166, QRS 120, QTC 486. No OK prolongation, no QTC prolongation, no ST or T-wave changes noted. EKG compared to 01/22/2019 showing no changes. Overall, this EKG is unremarkable - Related Data Home Medications Medication Instructions Recorded Confirmed Prazosin [Minipress] 1 mg PO HS 05/11/18 01/24/19 metFORMIN HCL 1,000 mg PO BID 01/22/19 01/24/19 QUEtiapine [SEROquel] 50 mg PO HS 01/24/19 01/24/19 Insulin Aspart [NovoLOG] 20 units SQ AC-SUPPER 02/05/19 02/05/19 Previous Rx's Medication Instructions Recorded Allopurinol [Zyloprim] 300 mg PO DAILY tab 01/23/18 Atorvastatin [Lipitor] 20 mg PO DAILY tab 01/23/18 DULoxetine HCL [Cymbalta] 30 mg PO BID #28 capsule. 02/05/19 Gabapentin [Neurontin] 400 mg PO TID #42 cap 02/05/19 INSULIN ASPART (NovoLOG) [NovoLOG 20 unit SQ AC-SUPPER #1 pen 02/05/19 (formulary)] Insulin Aspart [NovoLOG Flexpen] 40 unit SQ 0800,1200 #1 pen 02/05/19 Insulin Detemir [Levemir Flextouch] 80 unit SQ DAILY #1 pen 02/05/19 [place] Carbonate 300 mg PO TID #42 cap 02/05/19 Melatonin 3 mg PO HS #30 tablet 02/05/19 Pantoprazole [Protonix] 40 mg PO KAELABRKFST #14 tablet. 02/05/19 Vortioxetine Hydrobromide 10 mg PO DAILY #14 tablet 02/05/19 [Trintellix] Allergies Allergy/AdvReac Type Severity Reaction Status Date / Time ibuprofen [From Motrin] Allergy Rash/Hives Verified 03/30/19 15:28 Review of Systems ROS Statement: Those systems with pertinent positive or pertinent negative responses have been documented in the HPI. ROS Other: All systems not noted in ROS Statement are negative. Past Medical History Past Medical History: Diabetes Mellitus, Hyperlipidemia, Hypertension, Sleep Apnea/CPAP/BIPAP Additional Past Medical History / Comment(s): neuropathy,arthritis gout, depression.in past broke lt foot(sx ), myron carpal tunnel. History of Any Multi-Drug Resistant Organisms: None Reported Additional Past Surgical History / Comment(s): lasik eye sx ,left foot surgery. to reprair break-"has 2 plates and 16 screws" Past Anesthesia/Blood Transfusion Reactions: No Reported Reaction Past Psychological History: Anxiety, Bipolar, Depression, PTSD Smoking Status: Never smoker Past Alcohol Use History: None Reported Past Drug Use History: Cocaine, Marijuana - Past Family History Mother Family Medical History: Cancer, Diabetes Mellitus Father Family Medical History: Myocardial Infarction ([place]) Additional Family Medical History / Comment(s): stroke General Exam Limitations: no limitations Course Vital Signs 03/30/19 03/30/19 15:25 16:26 Temperature 97.9 F Pulse Rate 118 H 105 H Respiratory 20 Rate Blood Pressure 134/92 O2 Sat by Pulse 95 93 L Oximetry Procedures - [place] Protocol (Time Out) Nurse: Mona Murray Medical Decision Making - Lab Data Result diagrams: 03/30/19 16:15 03/30/19 16:15 Lab Results 03/30/19 03/30/19 03/30/19 Range/Units 15:29 16:12 16:12 WBC (3.8-10.6) k/uL RBC (4.30-5.90) m/uL Hgb (13.0-17.5) gm/dL Hct (39.0-53.0) % MCV (80.0-100.0) fL MCH (25.0-35.0) pg MCHC (31.0-37.0) g/dL RDW (11.5-15.5) % Plt Count (150-450) k/uL Neutrophils % % Lymphocytes % % Monocytes % % Eosinophils % % Basophils % % Neutrophils # (1.3-7.7) k/uL Lymphocytes # (1.0-4.8) k/uL Monocytes # (0-1.0) k/uL Eosinophils # (0-0.7) k/uL Basophils # (0-0.2) k/uL Sodium (137-145) mmol/L Potassium (3.5-5.1) mmol/L Chloride (98-107) mmol/L Carbon Dioxide (22-30) mmol/L Anion Gap mmol/L BUN (9-20) mg/dL Creatinine (0.66-1.25) mg/dL Est GFR (CKD-EPI)AfAm (>60 ml/min/1.73 sqM) Est GFR (CKD-EPI)NonAf (>60 ml/min/1.73 sqM) Glucose (74-99) mg/dL POC Glucose (mg/dL) >600 H (75-99) mg/dL POC Glu Director [employer] ID Heidi Orr Calcium (8.4-10.2) mg/dL Urine Color Light Yellow Urine Appearance Clear (Clear) Urine pH 5.0 (5.0-8.0) Ur Specific [place] 1.029 (1.001-1.035) Urine Protein Negative (Negative) Urine Glucose (UA) 4+ H (Negative) Urine Ketones 1+ H (Negative) Urine Blood Negative (Negative) Urine Nitrite Negative (Negative) Urine Bilirubin Negative (Negative) Urine Urobilinogen <2.0 (<2.0) mg/dL Ur Leukocyte Esterase Moderate H (Negative) Urine WBC 2 (0-5) /hpf Ur Squamous Epith Cells 2 (0-4) /hpf Urine Bacteria Rare H (None) /hpf Urine Opiates Screen Not Detected (NotDetected) Ur Oxycodone Screen Not Detected (NotDetected) Urine Methadone Screen Not Detected (NotDetected) Ur Propoxyphene Screen Not Detected (NotDetected) Ur Barbiturates Screen Not Detected (NotDetected) U Tricyclic Antidepress Not Detected (NotDetected) Ur Phencyclidine Scrn Not Detected (NotDetected) Ur Amphetamines Screen Not Detected (NotDetected) U Methamphetamines Scrn Not Detected (NotDetected) U Benzodiazepines Scrn Not Detected (NotDetected) Urine Cocaine Screen Detected H (NotDetected) U Marijuana (THC) Screen Not Detected (NotDetected) Serum Alcohol mg/dL Acetone, Qual (Negative) 03/30/19 03/30/19 03/30/19 Range/Units 16:15 16:15 16:15 WBC 11.8 H (3.8-10.6) k/uL RBC 5.96 H (4.30-5.90) m/uL Hgb 17.7 H (13.0-17.5) gm/dL Hct 54.7 H (39.0-53.0) % MCV 91.8 (80.0-100.0) fL MCH 29.6 (25.0-35.0) pg MCHC 32.3 (31.0-37.0) g/dL RDW 13.2 (11.5-15.5) % Plt Count 213 (150-450) k/uL Neutrophils % 80 % Lymphocytes % 13 % Monocytes % 4 % Eosinophils % 1 % Basophils % 2 % Neutrophils # 9.4 H (1.3-7.7) k/uL Lymphocytes # 1.5 (1.0-4.8) k/uL Monocytes # 0.4 (0-1.0) k/uL Eosinophils # 0.1 (0-0.7) k/uL Basophils # 0.2 (0-0.2) k/uL Sodium 127 L (137-145) mmol/L Potassium 5.3 H (3.5-5.1) mmol/L Chloride 95 L (98-107) mmol/L Carbon Dioxide 19 L (22-30) mmol/L Anion Gap 13 mmol/L BUN 16 (9-20) mg/dL Creatinine 0.71 (0.66-1.25) mg/dL Est GFR (CKD-EPI)AfAm >90 (>60 ml/min/1.73 sqM) Est GFR (CKD-EPI)NonAf >90 (>60 ml/min/1.73 sqM) Glucose 766 H* (74-99) mg/dL POC Glucose (mg/dL) (75-99) mg/dL POC Glu Director [employer] ID Calcium 9.5 (8.4-10.2) mg/dL Urine Color Urine Appearance (Clear) Urine pH (5.0-8.0) Ur Specific [place] (1.001-1.035) Urine Protein (Negative) Urine Glucose (UA) (Negative) Urine Ketones (Negative) Urine Blood (Negative) Urine Nitrite (Negative) Urine Bilirubin (Negative) Urine Urobilinogen (<2.0) mg/dL Ur Leukocyte Esterase (Negative) Urine WBC (0-5) /hpf Ur Squamous Epith Cells (0-4) /hpf Urine Bacteria (None) /hpf Urine Opiates Screen (NotDetected) Ur Oxycodone Screen (NotDetected) Urine Methadone Screen (NotDetected) Ur Propoxyphene Screen (NotDetected) Ur Barbiturates Screen (NotDetected) U Tricyclic Antidepress (NotDetected) Ur Phencyclidine Scrn (NotDetected) Ur Amphetamines Screen (NotDetected) U Methamphetamines Scrn (NotDetected) U Benzodiazepines Scrn (NotDetected) Urine Cocaine Screen (NotDetected) U Marijuana (THC) Screen (NotDetected) Serum Alcohol <10 mg/dL Acetone, Qual Negative (Negative) Critical Care Time Critical Care Time: Yes (31) Disposition Clinical Impression: DKA (diabetic ketoacidoses) Disposition: ADMITTED IP TO THIS [facility] Condition: Critical Referrals: Meredith Reich MD [Primary Care Provider] - 1-2 days Time of Disposition: 17:48
[2019-03-30] MEDS: SODIUM CHLORIDE 0.9% 1,000 ML IV SCH (17:49)
[2019-03-30 19:07] LABS: Glucose,Whole Blood 522 mg/dL (75-99)
[2019-03-30 20:16] LABS: Glucose,Whole Blood 399 mg/dL (75-99)
[2019-03-30 21:14] LABS: African American GFR (CKD) >90 (>60 ml/min/1.73 sqM); Anion Gap 8 mmol/L; Blood Urea Nitrogen 14 mg/dL (9-20); Carbon Dioxide 21 mmol/L (22-30); Chloride 99 mmol/L (98-107); Glucose 396 mg/dL (74-99); Non-African American GFR(CKD) >90 (>60 ml/min/1.73 sqM); Phosphorus 3.6 mg/dL (2.5-4.5); Sodium 128 mmol/L (137-145)
[2019-03-30 21:19] LABS: Potassium 4.7 mmol/L (3.5-5.1)
[2019-03-30 22:22] LABS: Glucose,Whole Blood 336 mg/dL (75-99)
[2019-03-30] MEDS ORDERED: HYDROmorphone 1 MG/ML 1 ML SYRINGE IVP PRN (22:49)
[2019-03-30] MEDS ORDERED: SIMETHICONE 80 MG CHEWABLE PO PRN (23:00)
[2019-03-30] MEDS ORDERED: DOCUSATE 100 MG CAP PO PRN (23:00)
[2019-03-30 23:56] LABS: Glucose,Whole Blood 193 mg/dL (75-99)
[2019-03-31] MEDS: HEPARIN SODIUM,PORCINE 5,000 UNIT/ML 1 ML VIAL SQ SCH ×3 (00:30→16:36)
[2019-03-31] MEDS: INSULIN ASPART (NovoLOG) 100 UNIT/ML VIAL SQ SCH ×5 (00:37→16:36)
[2019-03-31] MEDS: SODIUM CHLORIDE 0.9% 1,000 ML IV SCH ×4 (00:38→17:57)
[2019-03-31 04:36] LABS: Basophils # (A) 0.1 k/uL (0-0.2); Basophils % (A) 1 %; Eosinophils # (A) 0.3 k/uL (0-0.7); Eosinophils % (A) 3 %; HCT 49.4 % (39.0-53.0); HGB 15.8 gm/dL (13.0-17.5); Lymphocytes % (A) 42 %; MCHC 31.9 g/dL (31.0-37.0); MCV 90.8 fL (80.0-100.0); Mean Platelet Volume 9.4; Monocytes # (A) 0.5 k/uL (0-1.0); Monocytes % (A) 5 %; Neutrophils # (A) 4.4 k/uL (1.3-7.7); Neutrophils % (A) 46 %; Platelet Count 176 k/uL (150-450); RBC 5.44 m/uL (4.30-5.90); RDW 13.2 % (11.5-15.5); WBC 9.6 k/uL (3.8-10.6)
[2019-03-31 04:53] LABS: African American GFR (CKD) >90 (>60 ml/min/1.73 sqM); Anion Gap 7 mmol/L; Blood Urea Nitrogen 13 mg/dL (9-20); Calcium 8.5 mg/dL (8.4-10.2); Carbon Dioxide 24 mmol/L (22-30); Chloride 102 mmol/L (98-107); Glucose 257 mg/dL (74-99); Non-African American GFR(CKD) >90 (>60 ml/min/1.73 sqM); Sodium 133 mmol/L (137-145)
[2019-03-31] MEDS ORDERED: ACETAMINOPHEN TAB 325 MG TAB PO PRN (05:57)
[2019-03-31 06:20] LABS: Glucose,Whole Blood 300 mg/dL (75-99)
[2019-03-31] MEDS ORDERED: PANTOPRAZOLE 40 MG/10 ML VIAL IV SCH (09:00)
[2019-03-31 11:42] LABS: Glucose,Whole Blood 285 mg/dL (75-99)
--- NOTE | 2019-03-31 12:55 | P.CNPUL ---
History of Present Illness Consult date: 03/31/19 Reason for consult: other (Hyperglycemic state, patient admitted to the ICU.) Chief complaint: Suicidal ideation and elevated blood sugar. History of present illness: This is a 48-year-old white male with history of type 2 diabetes, history of bipolar disorder, history of previous suicidal ideations and attempts, patient has been seen on multiple occasions by psychiatry. And he was admitted to the psychiatric [facility] on multiple separate occasions. Patient has been feeling depressed recently, and he stopped using his insulin. He presented to the ER yesterday complaining of not feeling well, feeling depressed, and he wanted to kill himself by stopping taking his insulin. Blood sugar was noted to be a critically high. At 766. There was no evidence of an iron gap metabolic acidosis. His sodium was noted to be 128, but that is mostly a pseudohyponatremia related to hyperglycemia. Renal profile was normal. Patient was given fluid boluses in the ER. I was notified about the patient, recommended admitting the patient to the ICU for observation overnight, in the meantime I recommended fluids at 1 50 mL/h using 0.9 normal saline. I also recommended insulin initially, however his sugar wasn't responding to the insulin drip quite fast, I recommended switching him to insulin subcu as per scale. I saw him this morning, the patient is doing well from the medical perspective, however he remains depressed, and he is serious about potentially killing himself. His labs were basically unremarkable. CBC is relatively normal electrolytes are normal bicarb is normal renal profile is normal hence I have recommended that we continue the insulin as per scale, I recommended to continue IV fluids for the time being, and to have patient evaluated by psychiatry and possibly transfer the patient to psychiatry today or to a regular medical floor with suicidal precautions and sitter at bedside. Review of Systems Constitutional: Patient denies any fever or chills . Denies weight loss. Abdomen: Denies nausea vomiting abdominal pain melena or hematemesis. Cardiovascular: Denies chest pain and orthopnea PND or palpitations. Respiratory: Denies shortness of breath cough or wheezing. Neurologic: Denies headache blurred vision dizziness. Musculoskeletal: Complaining of generalized aches and pains.. Skin: Denies any pruritus or rashes. Psychiatric: As noted in HPI. Endocrine: Denies any heat or cold intolerance. Genitourinary: Denies any dysuria frequency urgency or hematuria. Hematologic: Denies any clotting bleeding or bruising. Past Medical History Past Medical History: Diabetes Mellitus, Hyperlipidemia, Hypertension, Sleep Apnea/CPAP/BIPAP Additional Past Medical History / Comment(s): neuropathy,arthritis gout, depression. Crushing injury to left foot metacarpals repaired with plate and 16 screws in past broke lt foot(sx ), myron carpal tunnel. History of Any Multi-Drug Resistant Organisms: None Reported Additional Past Surgical History / Comment(s): lasik eye sx ,left foot surgery. to reprair break-"has 2 plates and 16 screws" left groin boil cellulitis with excision and debriedment and NPWT performed by Dr. Estrella. Past Anesthesia/Blood Transfusion Reactions: No Reported Reaction Past Psychological History: Anxiety, Bipolar, Depression, PTSD Smoking Status: Never smoker Past Alcohol Use History: None Reported Additional Past Alcohol Use History / Comment(s): "haven't drank since 2018". Past Drug Use History: Cocaine, Marijuana Additional Drug Use History / Comment(s): crack cocaine. stated quit all drug use 2016 used crack cocaine today (day of admission 01-22-2019 - Past Family History Mother Family Medical History: Cancer, Diabetes Mellitus Father Family Medical History: Myocardial Infarction (NH) Additional Family Medical History / Comment(s): stroke Medications and Allergies Home Medications Medication Instructions Recorded Confirmed Type Allopurinol [Zyloprim] 300 mg PO DAILY tab 01/23/18 03/31/19 Rx Atorvastatin [Lipitor] 20 mg PO DAILY tab 01/23/18 03/31/19 Rx Prazosin [Minipress] 1 mg PO HS 05/11/18 03/31/19 History metFORMIN HCL 1,000 mg PO BID 01/22/19 03/31/19 History QUEtiapine [SEROquel] 50 mg PO HS 01/24/19 03/31/19 History DULoxetine HCL [Cymbalta] 30 mg PO BID #28 capsule. 02/05/19 03/31/19 Rx Gabapentin [Neurontin] 400 mg PO TID #42 cap 02/05/19 03/31/19 Rx INSULIN ASPART (NovoLOG) [NovoLOG 20 unit SQ AC-SUPPER #1 pen 02/05/19 03/31/19 Rx (formulary)] Insulin Aspart [NovoLOG Flexpen] 40 unit SQ 0800,1200 #1 pen 02/05/19 03/31/19 Rx Insulin Aspart [NovoLOG] 20 units SQ AC-SUPPER 02/05/19 03/31/19 History Insulin Detemir [Levemir Flextouch] 80 unit SQ DAILY #1 pen 02/05/19 03/31/19 Rx [place] Carbonate 300 mg PO TID #42 cap 02/05/19 03/31/19 Rx Melatonin 3 mg PO HS #30 tablet 02/05/19 03/31/19 Rx Pantoprazole [Protonix] 40 mg PO AC-BRKFST #14 tablet.dr 02/05/19 03/31/19 Rx Vortioxetine Hydrobromide 10 mg PO DAILY #14 tablet 02/05/19 03/31/19 Rx [Trintellix] Allergies Allergy/AdvReac Type Severity Reaction Status Date / Time ibuprofen [From Motrin] Allergy Rash/Hives Verified 03/30/19 15:28 Physical Exam Vitals: Vital Signs Temp Pulse Resp BP Pulse Ox 03/31/19 12:00 89 18 108/65 94 L 03/31/19 10:00 72 21 116/84 93 L 03/31/19 09:00 77 23 120/90 95 03/31/19 08:00 73 21 117/83 94 L 03/31/19 07:51 22 03/31/19 07:00 76 22 115/74 93 L 03/31/19 06:00 72 22 145/87 95 03/31/19 05:00 81 24 143/88 92 L 03/31/19 04:00 97.8 F 80 16 126/77 94 L 03/31/19 03:00 71 19 122/80 95 03/31/19 02:00 84 23 137/88 93 L 03/31/19 01:00 82 20 135/85 93 L 03/31/19 00:00 80 23 135/93 93 L 03/30/19 23:00 92 22 135/97 93 L 03/30/19 22:00 97.9 F 87 23 135/99 95 03/30/19 20:25 80 18 126/82 94 L 03/30/19 19:07 96 18 100/65 95 03/30/19 17:51 98 18 135/73 93 L 03/30/19 16:26 105 H 93 L 03/30/19 15:25 97.9 F 118 H 20 134/92 95 Intake and Output 03/30/19 03/31/19 03/31/19 22:59 06:59 14:59 Intake Total 200 1300 600 Output Total 800 0 Balance 200 500 600 Intake: IV 200 1300 600 Sodium Chloride 0.9% 1, 200 1300 600 000 ml @ 150 mls/hr IV . [facility] Rx#:[id number] Output: Urine 800 0 Other: Voiding Method Urinal Urinal # Voids 0 0 1 Weight 101.151 kg 143.7 kg Gen.: Revealed a 48-year-old white male in no distress, lying in bed, seems depressed. Blunt affect. Head: Atraumatic normocephalic. HEENT: PERRLA, EOMI, no icterus, no neck masses, no JVD, Mallampati class III. CHEST EXAMINATION: Symmetrical chest expansion clear breath sound bilaterally no crackles or rhonchi or wheezes. Abdomen: Soft nontender no megaly no rebound obese no guarding. Good breath sound bilaterally. Cardiac: Normal S1 and S2, no S3 gallop. No murmur Extremities: No clubbing edema or cyanosis. Good pulses bilaterally. Neurologically: Awake alert oriented 3 focal neurologic deficits. Skin: No rash . Psychiatric: Depressed mood, blunt affect, admits to suicidal ideations. Patient stopped his insulin deliberately to kill himself. Musculoskeletal: No joint swelling or deformity. Normal range of motion. Results - Laboratory Findings CBC and BMP: 03/31/19 03:58 03/31/19 03:58 Abnormal lab findings: Abnormal Labs 03/30/19 03/30/19 03/30/19 15:29 16:12 16:12 WBC RBC Hgb Hct Neutrophils # Sodium Potassium Chloride Carbon Dioxide Creatinine Glucose POC Glucose (mg/dL) >600 H Urine Glucose (UA) 4+ H Urine Ketones 1+ H Ur Leukocyte Esterase Moderate H Urine Bacteria Rare H Urine Cocaine Screen Detected H 03/30/19 03/30/19 03/30/19 16:15 16:15 17:43 WBC 11.8 H RBC 5.96 H Hgb 17.7 H Hct 54.7 H Neutrophils # 9.4 H Sodium 127 L Potassium 5.3 H Chloride 95 L Carbon Dioxide 19 L Creatinine Glucose 766 H* POC Glucose (mg/dL) 544 H Urine Glucose (UA) Urine Ketones Ur Leukocyte Esterase Urine Bacteria Urine Cocaine Screen 03/30/19 03/30/19 03/30/19 19:05 20:15 20:20 WBC RBC Hgb Hct Neutrophils # Sodium 128 L Potassium Chloride Carbon Dioxide 21 L Creatinine 0.52 L Glucose 396 H POC Glucose (mg/dL) 522 H 399 H Urine Glucose (UA) Urine Ketones Ur Leukocyte Esterase Urine Bacteria Urine Cocaine Screen 03/30/19 03/30/19 03/31/19 22:11 23:55 03:58 WBC RBC Hgb Hct Neutrophils # Sodium 133 L Potassium Chloride Carbon Dioxide Creatinine 0.63 L Glucose 257 H POC Glucose (mg/dL) 336 H 193 H Urine Glucose (UA) Urine Ketones Ur Leukocyte Esterase Urine Bacteria Urine Cocaine Screen 03/31/19 03/31/19 06:18 11:40 WBC RBC Hgb Hct Neutrophils # Sodium Potassium Chloride Carbon Dioxide Creatinine Glucose POC Glucose (mg/dL) 300 H 285 H Urine Glucose (UA) Urine Ketones Ur Leukocyte Esterase Urine Bacteria Urine Cocaine Screen Assessment and Plan Assessment: Impression: 1 acute hyperglycemic nonketotic state. 2 major depression 3 history of type 2 diabetes. With diabetic neuropathy. 4 history of bipolar disorder. 5 hyperlipidemia 6 obstructive sleep apnea syndrome on BiPAP at home. 7 diabetic neuropathy Recommendation: Continue IV fluid, 0.9 normal saline at 100 mL per hour. Discontinue insulin drip and placed on insulin scale as per protocol. Suicidal precautions. Resume home meds. Psychiatric consultation. Transfer to psychiatry today if accepted by psychiatry. Otherwise can transfer to a regular medical floor with a sitter at bedside and continue suicidal precautions. Will follow on when necessary basis. Time with Patient: Greater than 30
[2019-03-31 14:53] VITALS: BMI 46.7
[2019-03-31 16:26] LABS: Glucose,Whole Blood 313 mg/dL (75-99)
[2019-03-31] MEDS: GABAPENTIN 400 MG CAP PO SCH ×2 (16:36→21:15)
[2019-03-31] MEDS: LITHIUM CARBONATE 300 MG CAP PO SCH ×2 (16:36→21:15)
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
--- NOTE | 2019-03-31 16:58 | P.HPIM ---
History of Present Illness H&P Date: 03/31/19 Chief Complaint: Elevated blood sugar/suicidal ideation 48-year-old white male with history of type 2 diabetes, history of bipolar disorder, history of previous suicidal ideations and attempts, has been feeling depressed recently, and he stopped using his insulin. He presented to the ER yesterday complaining of not feeling well, feeling depressed, and he wanted to kill himself by stopping taking his insulin. Blood sugar was noted to be a critically high. At 766. There was no evidence of an anion gap metabolic acidosis. His sodium was noted to be 128, possibly pseudohyponatremia related to hyperglycemia. Renal profile was normal. Patient was given fluid boluses in the ER and admitted to the ICU for observation overnight, patient was continued on fluids at 1 50 mL/h using 0.9 normal saline. Patient was started on IV insulin infusion and admitted for further treatment and psychiatric evaluation Review of Systems REVIEW OF SYSTEMS: CONSTITUTIONAL: No fever, no malaise, no fatigue. HEENT: No recent visual problems or hearing problems. Denied any sore throat. CARDIOVASCULAR: No chest pain, orthopnea, PND, no palpitations, no syncope. PULMONARY: No shortness of breath, no cough, no hemoptysis. GASTROINTESTINAL: No diarrhea, no nausea, no vomiting, no abdominal pain. NEUROLOGICAL: No headaches, no weakness, no numbness. HEMATOLOGICAL: Denies any bleeding or petechiae. GENITOURINARY: Denies any burning micturition, frequency, or urgency. MUSCULOSKELETAL/RHEUMATOLOGICAL: Denies any joint pain, swelling, or any muscle pain. ENDOCRINE: Denies any polyuria or polydipsia. Psychiatric; suicidal ideation The rest of the 14-point review of systems is negative. Past Medical History Past Medical History: Diabetes Mellitus, Hyperlipidemia, Hypertension, Sleep Apnea/CPAP/BIPAP Additional Past Medical History / Comment(s): neuropathy,arthritis gout, depression. Crushing injury to left foot metacarpals repaired with plate and 16 screws in past broke lt foot(sx ), myron carpal tunnel. History of Any Multi-Drug Resistant Organisms: None Reported Additional Past Surgical History / Comment(s): lasik eye sx ,left foot surgery. to reprair break-"has 2 plates and 16 screws" left groin boil cellulitis with excision and debriedment and NPWT performed by Dr. Estrella. Past Anesthesia/Blood Transfusion Reactions: No Reported Reaction Past Psychological History: Anxiety, Bipolar, Depression, PTSD Smoking Status: Never smoker Past Alcohol Use History: None Reported Additional Past Alcohol Use History / Comment(s): "haven't drank since 2018". Past Drug Use History: Cocaine, Marijuana Additional Drug Use History / Comment(s): crack cocaine. stated quit all drug use 2016 used crack cocaine today (day of admission 01-22-2019 - Past Family History Mother Family Medical History: Cancer, Diabetes Mellitus Father Family Medical History: Myocardial Infarction ([place]) Additional Family Medical History / Comment(s): stroke Medications and Allergies Home Medications Medication Instructions Recorded Confirmed Type Allopurinol [Zyloprim] 300 mg PO DAILY tab 01/23/18 03/31/19 Rx Atorvastatin [Lipitor] 20 mg PO DAILY tab 01/23/18 03/31/19 Rx Prazosin [Minipress] 1 mg PO HS 05/11/18 03/31/19 History metFORMIN HCL 1,000 mg PO BID 01/22/19 03/31/19 History QUEtiapine [SEROquel] 50 mg PO HS 01/24/19 03/31/19 History DULoxetine HCL [Cymbalta] 30 mg PO BID #28 capsule. 02/05/19 03/31/19 Rx Gabapentin [Neurontin] 400 mg PO TID #42 cap 02/05/19 03/31/19 Rx INSULIN ASPART (NovoLOG) [NovoLOG 20 unit SQ AC-SUPPER #1 pen 02/05/19 03/31/19 Rx (formulary)] Insulin Aspart [NovoLOG Flexpen] 40 unit SQ 0800,1200 #1 pen 02/05/19 03/31/19 Rx Insulin Aspart [NovoLOG] 20 units SQ AC-SUPPER 02/05/19 03/31/19 History Insulin Detemir [Levemir Flextouch] 80 unit SQ DAILY #1 pen 02/05/19 03/31/19 Rx [place] Carbonate 300 mg PO TID #42 cap 02/05/19 03/31/19 Rx Melatonin 3 mg PO HS #30 tablet 02/05/19 03/31/19 Rx Pantoprazole [Protonix] 40 mg PO AC-BRKFST #14 tablet. 02/05/19 03/31/19 Rx Vortioxetine Hydrobromide 10 mg PO DAILY #14 tablet 02/05/19 03/31/19 Rx [Trintellix] Allergies Allergy/AdvReac Type Severity Reaction Status Date / Time ibuprofen [From Motrin] Allergy Rash/Hives Verified 03/30/19 15:28 Physical Exam Vitals: Vital Signs Temp Pulse Resp BP Pulse Ox 03/31/19 10:00 72 21 116/84 93 L 03/31/19 09:00 77 23 120/90 95 03/31/19 08:00 73 21 117/83 94 L 03/31/19 07:51 22 03/31/19 07:00 76 22 115/74 93 L 03/31/19 06:00 72 22 145/87 95 03/31/19 05:00 81 24 143/88 92 L 03/31/19 04:00 97.8 F 80 16 126/77 94 L 03/31/19 03:00 71 19 122/80 95 03/31/19 02:00 84 23 137/88 93 L 03/31/19 01:00 82 20 135/85 93 L 03/31/19 00:00 80 23 135/93 93 L 03/30/19 23:00 92 22 135/97 93 L 03/30/19 22:00 97.9 F 87 23 135/99 95 03/30/19 20:25 80 18 126/82 94 L 03/30/19 19:07 96 18 100/65 95 03/30/19 17:51 98 18 135/73 93 L 03/30/19 16:26 105 H 93 L 03/30/19 15:25 97.9 F 118 H 20 134/92 95 Intake and Output 03/30/19 03/31/19 03/31/19 22:59 06:59 14:59 Intake Total 200 1300 600 Output Total 800 0 Balance 200 500 600 Intake: IV 200 1300 600 Sodium Chloride 0.9% 1, 200 1300 600 000 ml @ 150 mls/hr IV . Q6H40M [facility] Rx#:[id number] Output: Urine 800 0 Other: Voiding Method Urinal Urinal # Voids 0 0 0 Weight 101.151 kg 143.7 kg Gen.: Revealed a 48-year-old white male in no distress, lying in bed, seems depressed. Blunt affect. Head: Atraumatic normocephalic. HEENT: PERRLA, EOMI, no icterus, no neck masses, no JVD, Mallampati class III. CHEST EXAMINATION: Symmetrical chest expansion clear breath sound bilaterally no crackles or rhonchi or wheezes. Abdomen: Soft nontender no megaly no rebound obese no guarding. Good breath sound bilaterally. Cardiac: Normal S1 and S2, no S3 gallop. No murmur Extremities: No clubbing edema or cyanosis. Good pulses bilaterally. Neurologically: Awake alert oriented 3 focal neurologic deficits. Skin: No rash . Psychiatric: Depressed mood, blunt affect, admits to suicidal ideations. Patient stopped his insulin deliberately to kill himself. Musculoskeletal: No joint swelling or deformity. Normal range of motion. Results CBC & Chem 7: 03/31/19 03:58 03/31/19 03:58 Labs: Abnormal Lab Results - Last 24 Hours (Table) 03/30/19 03/30/19 03/30/19 Range/Units 15:29 16:12 16:12 WBC (3.8-10.6) k/uL RBC (4.30-5.90) m/uL Hgb (13.0-17.5) gm/dL Hct (39.0-53.0) % Neutrophils # (1.3-7.7) k/uL Sodium (137-145) mmol/L Potassium (3.5-5.1) mmol/L Chloride (98-107) mmol/L Carbon Dioxide (22-30) mmol/L Creatinine (0.66-1.25) mg/dL Glucose (74-99) mg/dL POC Glucose (mg/dL) >600 H (75-99) mg/dL Urine Glucose (UA) 4+ H (Negative) Urine Ketones 1+ H (Negative) Ur Leukocyte Esterase Moderate H (Negative) Urine Bacteria Rare H (None) /hpf Urine Cocaine Screen Detected H (NotDetected) 03/30/19 03/30/19 03/30/19 Range/Units 16:15 16:15 17:43 WBC 11.8 H (3.8-10.6) k/uL RBC 5.96 H (4.30-5.90) m/uL Hgb 17.7 H (13.0-17.5) gm/dL Hct 54.7 H (39.0-53.0) % Neutrophils # 9.4 H (1.3-7.7) k/uL Sodium 127 L (137-145) mmol/L Potassium 5.3 H (3.5-5.1) mmol/L Chloride 95 L (98-107) mmol/L Carbon Dioxide 19 L (22-30) mmol/L Creatinine (0.66-1.25) mg/dL Glucose 766 H* (74-99) mg/dL POC Glucose (mg/dL) 544 H (75-99) mg/dL Urine Glucose (UA) (Negative) Urine Ketones (Negative) Ur Leukocyte Esterase (Negative) Urine Bacteria (None) /hpf Urine Cocaine Screen (NotDetected) 03/30/19 03/30/19 03/30/19 Range/Units 19:05 20:15 20:20 WBC (3.8-10.6) k/uL RBC (4.30-5.90) m/uL Hgb (13.0-17.5) gm/dL Hct (39.0-53.0) % Neutrophils # (1.3-7.7) k/uL Sodium 128 L (137-145) mmol/L Potassium (3.5-5.1) mmol/L Chloride (98-107) mmol/L Carbon Dioxide 21 L (22-30) mmol/L Creatinine 0.52 L (0.66-1.25) mg/dL Glucose 396 H (74-99) mg/dL POC Glucose (mg/dL) 522 H 399 H (75-99) mg/dL Urine Glucose (UA) (Negative) Urine Ketones (Negative) Ur Leukocyte Esterase (Negative) Urine Bacteria (None) /hpf Urine Cocaine Screen (NotDetected) 03/30/19 03/30/19 03/31/19 Range/Units 22:11 23:55 03:58 WBC (3.8-10.6) k/uL RBC (4.30-5.90) m/uL Hgb (13.0-17.5) gm/dL Hct (39.0-53.0) % Neutrophils # (1.3-7.7) k/uL Sodium 133 L (137-145) mmol/L Potassium (3.5-5.1) mmol/L Chloride (98-107) mmol/L Carbon Dioxide (22-30) mmol/L Creatinine 0.63 L (0.66-1.25) mg/dL Glucose 257 H (74-99) mg/dL POC Glucose (mg/dL) 336 H 193 H (75-99) mg/dL Urine Glucose (UA) (Negative) Urine Ketones (Negative) Ur Leukocyte Esterase (Negative) Urine Bacteria (None) /hpf Urine Cocaine Screen (NotDetected) 03/31/19 Range/Units 06:18 WBC (3.8-10.6) k/uL RBC (4.30-5.90) m/uL Hgb (13.0-17.5) gm/dL Hct (39.0-53.0) % Neutrophils # (1.3-7.7) k/uL Sodium (137-145) mmol/L Potassium (3.5-5.1) mmol/L Chloride (98-107) mmol/L Carbon Dioxide (22-30) mmol/L Creatinine (0.66-1.25) mg/dL Glucose (74-99) mg/dL POC Glucose (mg/dL) 300 H (75-99) mg/dL Urine Glucose (UA) (Negative) Urine Ketones (Negative) Ur Leukocyte Esterase (Negative) Urine Bacteria (None) /hpf Urine Cocaine Screen (NotDetected) Thrombosis Risk Factor Assmnt - Choose All That Apply Each Factor Represents 1 point: Age 41-60 years, Obesity (BMI >25) Thrombosis Risk Factor Assessment Total Risk Factor Score: 2 Thrombosis Risk Factor Assessment Level: Low Risk Assessment and Plan Assessment: 1. Acute hyperglycemia without acidosis - Patient was initially started on IV insulin infusion per protocol; patient did not have an anion gap metabolic acidosis upon admission; blood sugars continue to trend down; we will discontinue IV heparin infusion and start patient on home dose of Levemir and monitor Accu-Cheks every before meals and at bedtime with sliding scale 2. Major depression/suicidal ideation; patient takes Cymbalta, melatonin and blood came at home; we will reorder home medications and consult psychiatry for further evaluation and recommendations 3. Marked hyponatremia; possibly pseudohyponatremia secondary to markedly elevated blood sugars; patient remains on IV fluids and sodium levels of trended up to 133; we will continue to monitor and make adjustments and IV fluids according 4. Hyperlipidemia; continue with home dose of atorvastatin 20 mg daily 5. DVT prophylaxis; SCDs CODE STATUS; full code
[2019-03-31 20:21] LABS: Glucose,Whole Blood 290 mg/dL (75-99)
[2019-03-31] MEDS ORDERED: MELATONIN 3 MG TABLET PO SCH (21:00)
[2019-03-31] MEDS ORDERED: QUEtiapine 50 MG TAB PO SCH (21:00)
[2019-03-31] MEDS ORDERED: PRAZOSIN 1 MG CAP PO SCH (21:00)
[2019-03-31 23:56] LABS: Glucose,Whole Blood 239 mg/dL (75-99)
[2019-04-01] MEDS: HEPARIN SODIUM,PORCINE 5,000 UNIT/ML 1 ML VIAL SQ SCH ×2 (00:09→07:11)
[2019-04-01] MEDS: INSULIN ASPART (NovoLOG) 100 UNIT/ML VIAL SQ SCH ×3 (00:09→11:58)
[2019-04-01] MEDS: SODIUM CHLORIDE 0.9% 1,000 ML IV SCH ×3 (00:12→11:59)
[2019-04-01 03:58] VITALS: RESP 14
[2019-04-01 05:54] LABS: Glucose,Whole Blood 250 mg/dL (75-99)
[2019-04-01 06:59] LABS: Basophils # (A) 0.1 k/uL (0-0.2); Basophils % (A) 1 %; Eosinophils # (A) 0.3 k/uL (0-0.7); Eosinophils % (A) 4 %; HCT 46.2 % (39.0-53.0); HGB 15.2 gm/dL (13.0-17.5); Lymphocytes # (A) 2.8 k/uL (1.0-4.8); Lymphocytes % (A) 42 %; MCH 29.8 pg (25.0-35.0); MCV 90.4 fL (80.0-100.0); Mean Platelet Volume 10.4; Monocytes # (A) 0.4 k/uL (0-1.0); Monocytes % (A) 6 %; Neutrophils # (A) 2.9 k/uL (1.3-7.7); Neutrophils % (A) 44 %; Platelet Count 181 k/uL (150-450); RBC 5.11 m/uL (4.30-5.90); RDW 13.2 % (11.5-15.5); WBC 6.7 k/uL (3.8-10.6)
[2019-04-01] MEDS ORDERED: INSULIN DETEMIR (LEVEMIR) 100 UNIT/ML SYR SQ SCH (07:00)
[2019-04-01 07:10] LABS: Glucose,Whole Blood 269 mg/dL (75-99)
[2019-04-01 07:11] VITALS: BP 120/83; PULSE 78; TEMP 97.8
[2019-04-01] MEDS: GABAPENTIN 400 MG CAP PO SCH (07:11)
[2019-04-01] MEDS: LITHIUM CARBONATE 300 MG CAP PO SCH (07:12)
[2019-04-01 07:20] LABS: African American GFR (CKD) >90 (>60 ml/min/1.73 sqM); Anion Gap 6 mmol/L; Blood Urea Nitrogen 10 mg/dL (9-20); Calcium 8.2 mg/dL (8.4-10.2); Carbon Dioxide 19 mmol/L (22-30); Chloride 108 mmol/L (98-107); Glucose 280 mg/dL (74-99); Non-African American GFR(CKD) >90 (>60 ml/min/1.73 sqM); Potassium 4.1 mmol/L (3.5-5.1); Sodium 133 mmol/L (137-145)
[2019-04-01] MEDS ORDERED: PANTOPRAZOLE 40 MG TABLET PO SCH (07:30)
[2019-04-01] MEDS ORDERED: ATORVASTATIN 20 MG TAB PO SCH (09:00)
[2019-04-01] MEDS ORDERED: ALLOPURINOL 300 MG TAB PO SCH (09:00)
[2019-04-01] MEDS ORDERED: VORTIOXETINE HYDROBROMIDE 10 MG TABLET PO SCH (09:00)
[2019-04-01 11:41] LABS: Glucose,Whole Blood 284 mg/dL (75-99)
[2019-04-01 12:37] LABS: Hemoglobin A1C 14.9 % (4.0-6.0)
--- NOTE | 2019-04-01 12:46 | P.CON ---
Consult Note - . 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 The one-to-one was in attendance and left at the beginning interview. He reported continued feelings depression and "occasional" thoughts of suicide. He specifically denied plan or intent. He remains in agreement with the recommendation for inpatient psychiatric treatment. Mental status exam: He presented as an obese male who is laying comfortably in bed. He made eye contact and appeared to attend to the interview. He had a sad facial expression. He showed marked psychomotor retardation but no abnormal movements. Her speech was spontaneous with decreased rate, rhythm and volume. His affect was depressed and unreactive. The suicidal thoughts were best described as wishes without active ideati on. He denied plan or intent. He denied homicidal ideation. He expressed feelings of hopelessness, helplessness and worthlessness. He did not express ideas reference, paranoid ideation or delusions. His thinking was concrete but his associations were coherent and logical. He denied hallucinations and did not appear to responding to internal stimuli. Assessment: He is severely depressed and has passive suicidal thoughts. He remains appropriate for transfer to the psychiatric unit. Plan: Continue current psychotropic medications lithium carbonate 300 mg 3 times a day, Seroquel 50 mg at bedtime and Trintellix 10 mg daily. Discontinue one-to-one sitter. Transfer to psychiatric unit when medically stable.
--- NOTE | 2019-04-01 13:01 | P.DS ---
Providers Date of admission: 03/30/19 17:48 Expected date of discharge: 04/01/19 Attending physician: Dillon Magana Consults: 03/30/19 17:08 Consult Physician Routine Consulting Provider: Basil Gaitan Consult Reason/Comments: suicidal Do you want consulting provider notified?: Yes 03/30/19 17:48 Consult Physician Stat Consulting Provider: Paula Edwards Reason/Comments: icu patient Do you want consulting provider notified?: Already Contacted Primary care physician: Rachana Harper [facility] Course: Final diagnosis Acute hyperglycemia without acidosis Major depression/suicidal ideation Hyponatremia Hyperlipidemia DVT prophylaxis Full code Discharge disposition Patient is being discharged in a stable condition with guarded prognosis to the inpatient psychiatric unit for continued psychiatric management. Total time taken is 35 minutes. History of present illness 48-year-old white male with history of type 2 diabetes, history of bipolar disorder, history of previous suicidal ideations and attempts, has been feeling depressed recently, and he stopped using his insulin. He presented to the ER yesterday complaining of not feeling well, feeling depressed, and he wanted to kill himself by stopping taking his insulin. Blood sugar was noted to be a critically high. At 766. There was no evidence of an anion gap metabolic acidosis. His sodium was noted to be 128, possibly pseudohyponatremia related to hyperglycemia. Renal profile was normal. Patient was given fluid boluses in the ER and admitted to the ICU for observation overnight, patient was continued on fluids at 1 50 mL/h using 0.9 normal saline. Patient was started on IV insulin infusion and admitted for further treatment and psychiatric evaluation. Currently patient is on sliding scale and to be continued with blood sugar checks before meals at bedtime and treat accordingly. Patient is also on 80 units of Levemir daily in the a.m. and will continue at this time. Patient was evaluated by psychiatry and recommending inpatient psychiatric rehabilitation. Patient is agreeable to this. Currently patient and eyes any chest pain, shortness of breath, or palpitations. Patient is afebrile. Patient denies any nausea or vomiting and is tolerating diet. On exam vital signs are stable. Temp is 97.8F, pulse is 78, respirations are 14, blood pressure is 120/83, oxygen saturation is 96% on room air. Cardio S1, S2 are present. Respiratory system shows clear to auscultation. Abdomen is soft and nontender. Nervous system shows no focal deficits. Please refer to medication reconciliation sheet for a list of medications. Patient Condition at Discharge: Stable Plan - Discharge Summary Discharge Rx Participant: Yes New Discharge Prescriptions: New Docusate [Colace] 100 mg PO BID PRN cap PRN Reason: Constipation Simethicone Chew [Mylicon Chew] 40 mg PO QID PRN chew PRN Reason: Bloating INSULIN ASPART (NovoLOG) [NovoLOG (formulary)] 0 unit SQ Q6H vial Acetaminophen Tab [Tylenol] 650 mg PO Q6HR PRN tab PRN Reason: Fever And/ Or Pain Continue Atorvastatin [Lipitor] 20 mg PO DAILY tab Allopurinol [Zyloprim] 300 mg PO DAILY tab Prazosin [Minipress] 1 mg PO HS metFORMIN HCL 1,000 mg PO BID QUEtiapine [SEROquel] 50 mg PO HS DULoxetine HCL [Cymbalta] 30 mg PO BID #28 capsule. [place] Carbonate 300 mg PO TID #42 cap Melatonin 3 mg PO HS #30 tablet Vortioxetine Hydrobromide [Trintellix] 10 mg PO DAILY #14 tablet Gabapentin [Neurontin] 400 mg PO TID #42 cap Pantoprazole [Protonix] 40 mg PO AC-BRKFST #14 tablet. Insulin Aspart [NovoLOG] 20 units SQ AC-SUPPER INSULIN ASPART (NovoLOG) [NovoLOG (formulary)] 20 unit SQ AC-SUPPER #1 pen Insulin Detemir [Levemir Flextouch] 80 unit SQ DAILY #1 pen Insulin Aspart [NovoLOG Flexpen] 40 unit SQ 0800,1200 #1 pen Famotidine [Pepcid] 20 mg PO BID Discharge Medication List Allopurinol [Zyloprim] 300 mg PO DAILY tab 01/23/18 [Rx] Atorvastatin [Lipitor] 20 mg PO DAILY tab 01/23/18 [Rx] Prazosin [Minipress] 1 mg PO HS 05/11/18 [History] metFORMIN HCL 1,000 mg PO BID 01/22/19 [History] QUEtiapine [SEROquel] 50 mg PO HS 01/24/19 [History] DULoxetine HCL [Cymbalta] 30 mg PO BID #28 capsule. 02/05/19 [Rx] Gabapentin [Neurontin] 400 mg PO TID #42 cap 02/05/19 [Rx] INSULIN ASPART (NovoLOG) [NovoLOG (formulary)] 20 unit SQ AC-SUPPER #1 pen 02/05/19 [Rx] Insulin Aspart [NovoLOG Flexpen] 40 unit SQ 0800,1200 #1 pen 02/05/19 [Rx] Insulin Aspart [NovoLOG] 20 units SQ AC-SUPPER 02/05/19 [History] Insulin Detemir [Levemir Flextouch] 80 unit SQ DAILY #1 pen 02/05/19 [Rx] Supreme Carbonate 300 mg PO TID #42 cap 02/05/19 [Rx] Melatonin 3 mg PO HS #30 tablet 02/05/19 [Rx] Pantoprazole [Protonix] 40 mg PO AC-BRKFST #14 tablet.dr 02/05/19 [Rx] Vortioxetine Hydrobromide [Trintellix] 10 mg PO DAILY #14 tablet 02/05/19 [Rx] Acetaminophen Tab [Tylenol] 650 mg PO Q6HR PRN tab 04/01/19 [Rx] Docusate [Colace] 100 mg PO BID PRN cap 04/01/19 [Rx] Famotidine [Pepcid] 20 mg PO BID 04/01/19 [History] INSULIN ASPART (NovoLOG) [NovoLOG (formulary)] 0 unit SQ Q6H vial 04/01/19 [Rx] Simethicone Chew [Mylicon Chew] 40 mg PO QID PRN chew 04/01/19 [Rx] Follow up Appointment(s)/Referral(s): Meredith Reich MD [Primary Care Provider] - 1 Week Discharge Disposition: TRANSFER TO PSYCH HOSP/UNIT
== END 2019-04-01 14:33 | DRG 638 ==
LOC: EC 15:22 → 2SICU 17:48 → 4SSUR 03-31 14:13
PROVIDERS: ADMIT Hospitalist; ATTEND Hospitalist
DX: E11.65 Type 2 diabetes mellitus with hyperglycemia (principal); Z68.42 Body mass index [BMI] 45.0-49.9, adult; E87.1 Hypo-osmolality and hyponatremia; F33.2 Major depressive disorder, recurrent severe without psychotic features; R45.851 Suicidal ideations; E11.40 Type 2 diabetes mellitus with diabetic neuropathy, unspecified; E66.9 Obesity, unspecified; E78.5 Hyperlipidemia, unspecified; E86.0 Dehydration; F14.10 Cocaine abuse, uncomplicated; F12.10 Cannabis abuse, uncomplicated; F43.10 Post-traumatic stress disorder, unspecified; G47.33 Obstructive sleep apnea (adult) (pediatric); Z99.89 Dependence on other enabling machines and devices; I10 Essential (primary) hypertension; Z79.4 Long term (current) use of insulin; Z79.899 Other long term (current) drug therapy; Z82.3 Family history of stroke; Z82.49 Family history of ischemic heart disease and other diseases of the circulatory system; Z83.3 Family history of diabetes mellitus; T38.3X6A Underdosing of insulin and oral hypoglycemic [antidiabetic] drugs, initial encounter; T43.96XA Underdosing of unspecified psychotropic drug, initial encounter; Z91.128 Patient's intentional underdosing of medication regimen for other reason; Z91.19 Patient's noncompliance with other medical treatment and regimen; M10.9 Gout, unspecified; F41.9 Anxiety disorder, unspecified; Z56.0 Unemployment, unspecified; Z62.810 Personal history of physical and sexual abuse in childhood; G56.03 Carpal tunnel syndrome, bilateral upper limbs; Z91.5 Personal history of self-harm
CPT/HCPCS: 36415; 80048; 80051; 80306; 80320; 81001; 82009; 82075; 82565; 82947; 83036; 84100; 84520; 85025; 93005; 96360; 99291

== ENCOUNTER 2019-04-01 13:23 | Inpatient (IN) | payer MEDICARE, MEDICAID ==
[2019-04-01] MEDS ORDERED: ACETAMINOPHEN TAB 325 MG TAB PO PRN (15:06)
[2019-04-01] MEDS ORDERED: DOCUSATE 100 MG CAP PO PRN (15:06)
[2019-04-01] MEDS ORDERED: SIMETHICONE 80 MG CHEWABLE PO PRN (15:06)
[2019-04-01] MEDS ORDERED: LORazepam 2 MG/ML INJ IM PRN (15:18)
[2019-04-01] MEDS: GABAPENTIN 400 MG CAP PO SCH ×2 (17:01→20:59)
[2019-04-01] MEDS ORDERED: INSULIN ASPART 20 UNIT SQ SCH (17:30)
[2019-04-01 17:45] LABS: Glucose,Whole Blood 228 mg/dL (75-99)
[2019-04-01] MEDS: INSULIN ASPART (NovoLOG) 100 UNIT/ML VIAL SQ SCH ×3 (17:52→20:56)
[2019-04-01 20:34] LABS: Glucose,Whole Blood 260 mg/dL (75-99)
[2019-04-01] MEDS: QUEtiapine 50 MG TAB PO SCH (20:58)
[2019-04-01] MEDS: PRAZOSIN 1 MG CAP PO SCH (20:58)
[2019-04-01] MEDS: DULoxetine HCL 30 MG CAPSULE.DR PO SCH (20:58)
[2019-04-01] MEDS: FAMOTIDINE 20 MG TAB PO SCH (20:58)
[2019-04-01] MEDS: metFORMIN 500 MG TAB PO SCH (20:58)
[2019-04-01] MEDS: MELATONIN 3 MG TABLET PO SCH (20:59)
[2019-04-02 07:53] LABS: Glucose,Whole Blood 260 mg/dL (75-99)
[2019-04-02] MEDS: INSULIN ASPART (NovoLOG) 100 UNIT/ML VIAL SQ SCH ×8 (08:00→20:45)
[2019-04-02] MEDS: DULoxetine HCL 30 MG CAPSULE.DR PO SCH ×2 (08:41→20:49)
[2019-04-02] MEDS: ALLOPURINOL 300 MG TAB PO SCH (08:41)
[2019-04-02] MEDS: PANTOPRAZOLE 40 MG TABLET PO SCH (08:41)
[2019-04-02] MEDS: ATORVASTATIN 20 MG TAB PO SCH (08:41)
[2019-04-02] MEDS: FAMOTIDINE 20 MG TAB PO SCH ×2 (08:42→20:49)
[2019-04-02] MEDS: GABAPENTIN 400 MG CAP PO SCH ×3 (08:42→20:49)
[2019-04-02] MEDS: metFORMIN 500 MG TAB PO SCH ×2 (08:42→20:49)
[2019-04-02] MEDS ORDERED: INSULIN DETEMIR (LEVEMIR) 100 UNIT/ML SYR SQ SCH (09:00)
[2019-04-02] MEDS: LITHIUM CARBONATE ER 450 MG TABLET.ER PO SCH ×2 (09:54→20:49)
[2019-04-02 10:58] VITALS: BMI 47.1
[2019-04-02 12:43] LABS: Glucose,Whole Blood 163 mg/dL (75-99)
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
[2019-04-02 17:26] LABS: Glucose,Whole Blood 101 mg/dL (75-99)
[2019-04-02 20:08] LABS: Glucose,Whole Blood 186 mg/dL (75-99)
[2019-04-02] MEDS: MELATONIN 3 MG TABLET PO SCH (20:48)
[2019-04-02] MEDS: PRAZOSIN 1 MG CAP PO SCH (20:48)
[2019-04-02] MEDS: QUEtiapine 50 MG TAB PO SCH (20:49)
[2019-04-02] MEDS: LORazepam 0.5 MG TAB PO PRN (20:53)
--- NOTE | 2019-04-02 23:15 | CONS ---
CONSULTATION DATE OF SERVICE: 04/02/2019 REASON FOR CONSULTATION: Advice regarding diabetes and other multiple medical issues requested by Psychiatry. HISTORY OF PRESENT ILLNESS: This 48-year-old gentleman with a past medical history of multiple medical problems including diabetes mellitus, type 2, history of depression, history of hyperlipidemia, history of hyponatremia being followed by Dr. Reich in the outpatient setting was recently admitted to medical floor with hyperglycemia without any acidosis. Patient was treated with insulin. Patient improved significantly. Patient was subsequently transferred to inpatient psych floor at this time. There is no history of fever, rigors or chills. No history of headache, loss of consciousness or seizures. The blood sugars have been elevated initially, but currently is 163, triglycerides 829, cholesterol 298. HDL is 33. There is no history of fever, rigors or chills. No history of headache, loss of consciousness or seizures. PAST MEDICAL HISTORY: History of diabetes type 2, hypertension, hyperlipidemia, sleep apnea, history of neuropathy, history of DJD, history of depression, crushing injury to the left foot, anxiety, bipolar depression, PTSD. MEDICATIONS: Home medications are reviewed and include: 1. Metformin 1000 mg p.o. b.i.d. 2. Trintellix 10 mg p.o. daily. 3. Mysoline Q 40 mg q.i.d. p.r.n. 4. Seroquel 50 mg q.h.s. 5. Minipress 1 mg q.h.s. 6. Protonix 40 mg a.c. breakfast. 7. Melatonin 3 mg q.h.s. 8. Seltzer carbonate 300 mg p.o. t.i.d. 9. Levemir 80 units subcu daily. 10.NovoLog 20 units a.c. supper. 11.FlexPen 14 subcu b.i.d. 12.NovoLog 20 units a.c. supper. 13.Neurontin 400 mg p.o. t.i.d. 14.Pepcid 20 mg p.o. b.i.d. 15.Colace 100 mg b.i.d. p.r.n. 16.Cymbalta 30 mg p.o. b.i.d. 17.Lipitor 20 mg p.o. daily. 18.Zyloprim 300 mg p.o. daily. 19.Tylenol 650 q.6h p.r.n. ALLERGIES: IBUPROFEN. FAMILY HISTORY: History of cancer, diabetes, and stroke in the family. SOCIAL HISTORY: No history of smoking. History of cocaine and THC. REVIEW OF SYSTEMS: ENT: No diminished hearing or vision. CARDIOVASCULAR: No angina or palpitations. RESPIRATIONS: No cough. No hemoptysis. GI no nausea or vomiting. no dysuria or hematuria. NERVOUS system: No numbness or weakness. Allergy: No asthma or hayfever. MUSCULOSKELETAL as mentioned earlier. HEMATOLOGY: No history of anemia. ENDOCRINE: Diabetes. CONSTITUTIONAL: As mentioned earlier. DERMATOLOGY: Negative. RHEUMATOLOGY: Negative. PSYCHIATRY: As mentioned earlier. EXAM: The patient is alert and oriented times three. Patient pulse 71, blood pressure 137/67, respirations 18. Temperature 98.1, pulse ox normal. HEENT: Conjunctivae normal. Oral mucosa moist. NECK is no jugular venous distention. No carotid bruit. No lymph node enlargement. Obese. Cardiovascular system: S1, S2 normal. No S3, no S4. RESPIRATORY: Breath sounds diminished in the bases. A few scattered rhonchi. No crackles. ABDOMEN: Soft, obese, nontender. No mass palpable. LEGS: No edema. No swelling. Nervous system as mentioned earlier. Moves all 4 limbs. No focal motor or sensory deficits. LYMPHATICS: No lymph nodes palpable in the neck, axillae or groin. JOINTS no active deforming arthropathy. SKIN: No ulcer, rash or bleeding. LABS: At this time shows 829 and closer to 298. Accu-Cheks noted. ASSESSMENT: 1. Diabetes mellitus type 1 uncontrolled with history of recent hyperglycemia without any ketoacidosis. 2. Hyperlipidemia. 3. Hypertriglyceridemia. 4. Hypercholesteremia. 5. Diabetes type 2 uncontrolled. 6. Increased AST. 7. History of hypertension. 8. History of sleep apnea. 9. History neuropathy. 10.History of DJD, history of gout. 11.History of depression. 12.History of anxiety, bipolar depression, PTSD. 13.History of cocaine and THC. 14.FULL CODE. 15.Obesity body mass index 47.1. 16.Depression, suicidal ideations. RECOMMENDATIONS AND DISCUSSION: This 48-year-old gentleman who presented with multiple medical issues, at this time, I recommend to continue the current management, symptomatic treatment, and I would recommend resume the home medications and monitor the blood sugars closely. Also recommend close followup with the primary physician in the outpatient setting. Otherwise, further psych medications per Psychiatry follow the patient closely and please let us know if sugars are uncontrolled. Recommend dietary consultation and watch the diet also. Further medications were discussed. The recommendations to follow. A copy of this dictation being forwarded to Dr. Reich who is the primary physician. MMODL / IJN: [id number] / DEVON
[2019-04-03 07:49] LABS: Glucose,Whole Blood 284 mg/dL (75-99)
[2019-04-03] MEDS: INSULIN ASPART (NovoLOG) 100 UNIT/ML VIAL SQ SCH ×7 (07:52→21:16)
[2019-04-03] MEDS: INSULIN DETEMIR (LEVEMIR) 100 UNIT/ML SYR SQ SCH (07:54)
[2019-04-03] MEDS: DULoxetine HCL 30 MG CAPSULE.DR PO SCH ×2 (08:41→21:15)
[2019-04-03] MEDS: LITHIUM CARBONATE ER 450 MG TABLET.ER PO SCH ×2 (08:41→21:15)
[2019-04-03] MEDS: FAMOTIDINE 20 MG TAB PO SCH ×2 (08:41→21:19)
[2019-04-03] MEDS: metFORMIN 500 MG TAB PO SCH ×2 (08:42→21:16)
[2019-04-03] MEDS: PANTOPRAZOLE 40 MG TABLET PO SCH (08:42)
[2019-04-03] MEDS: ALLOPURINOL 300 MG TAB PO SCH (08:42)
[2019-04-03] MEDS: GABAPENTIN 400 MG CAP PO SCH ×3 (08:42→21:19)
[2019-04-03] MEDS: ATORVASTATIN 20 MG TAB PO SCH (08:42)
[2019-04-03 12:39] LABS: Glucose,Whole Blood 198 mg/dL (75-99)
--- NOTE | 2019-04-03 16:25 | P.PN ---
Subjective Progress Note Date: 04/03/19 Principal diagnosis: Major depressive disorder recurrent without psychotic features, cocaine use disorder unspecified, cannabis use disorder unspecified diabetes mellitus, Reviewed the medical record, interviewed the patient and discuss his treatment and treatment plan during team meeting. He is feeling "back to normal". He denied feeling depressed or having thoughts of or suicide. He believes that his depression improves with control of his diabetes. In the past he seems to develop a severe depression when he allows his diabetes, uncontrolled. 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 He feels useless since he went on disability and is no longer working. Objective - Vital Signs Vital signs: Vital Signs Temp 98.3 F 04/03/19 06:10 Pulse 77 04/03/19 06:10 Resp 16 04/03/19 06:10 BP 113/65 04/03/19 06:10 Pulse Ox Intake & Output 04/02/19 04/03/19 04/03/19 18:59 06:59 18:59 Weight 144.7 kg - Exam Presented as an obese 48-year-old male who was neatly dressed and groomed. He made eye contact and attended to the interview. No prominent physical abnormalities. He had a blunted but bright facial expression. He has psychomotor retardation but no abnormal palpable parents. Her speech was spontaneous with decreased rate, rhythm and volume. His affect was blunted but stable and appropriate. He denied suicidal ideation, wishes or homicidal ideation. He denied feeling hopeless, helpless or worthless. He did not express ideas reference, paranoid ideation, magical ideation or delusions. He ruminated about his feelings of uselessness and his inability to "reached out" to friends, family and mental health workers when he becomes feeling depressed. His thinking was abstract and associations were coherent, logical and goal directed. He denied hallucinations and did not appear to be responding to internal stimuli. - Labs Labs: Abnormal Lab Results - Last 24 Hours (Table) 04/02/19 04/02/19 04/03/19 Range/Units 17:24 20:07 07:48 POC Glucose (mg/dL) 101 H 186 H 284 H (75-99) mg/dL 04/03/19 Range/Units 12:38 POC Glucose (mg/dL) 198 H (75-99) mg/dL Assessment and Plan Assessment: He is much improved from admission and denies feeling depressed, hopeless and helpless. He no longer has suicidal ideation. Plan: Continue treatment and treatment plan. consider discharge last week.
[2019-04-03 17:46] LABS: Glucose,Whole Blood 125 mg/dL (75-99)
[2019-04-03 20:32] LABS: Glucose,Whole Blood 191 mg/dL (75-99)
[2019-04-03] MEDS: MELATONIN 3 MG TABLET PO SCH (21:15)
[2019-04-03] MEDS: QUEtiapine 50 MG TAB PO SCH (21:15)
[2019-04-03] MEDS: PRAZOSIN 1 MG CAP PO SCH (21:15)
[2019-04-04 07:43] LABS: Glucose,Whole Blood 190 mg/dL (75-99)
[2019-04-04] MEDS: INSULIN ASPART (NovoLOG) 100 UNIT/ML VIAL SQ SCH ×7 (07:50→21:51)
[2019-04-04] MEDS: PANTOPRAZOLE 40 MG TABLET PO SCH (07:51)
[2019-04-04] MEDS: INSULIN DETEMIR (LEVEMIR) 100 UNIT/ML SYR SQ SCH (07:51)
[2019-04-04] MEDS: FAMOTIDINE 20 MG TAB PO SCH ×2 (08:23→21:53)
[2019-04-04] MEDS: metFORMIN 500 MG TAB PO SCH ×2 (08:23→21:53)
[2019-04-04] MEDS: ALLOPURINOL 300 MG TAB PO SCH (08:23)
[2019-04-04] MEDS: DULoxetine HCL 30 MG CAPSULE.DR PO SCH ×2 (08:23→21:53)
[2019-04-04] MEDS: GABAPENTIN 400 MG CAP PO SCH ×3 (08:24→21:53)
[2019-04-04] MEDS: LITHIUM CARBONATE ER 450 MG TABLET.ER PO SCH ×2 (08:24→21:53)
[2019-04-04] MEDS: ATORVASTATIN 20 MG TAB PO SCH (08:24)
[2019-04-04 12:55] LABS: Glucose,Whole Blood 179 mg/dL (75-99)
--- NOTE | 2019-04-04 15:11 | P.PN ---
Subjective Progress Note Date: 04/04/19 Principal diagnosis: Major depressive disorder recurrent without psychotic features, cocaine use disorder unspecified, cannabis use disorder unspecified diabetes mellitus, I reviewed the medical record, interviewed the patient and discuss his treatment and treatment plan during team meeting. He complains of increasing depression today. That she woke up this morning depressed and hopeless. He was unable to explain the traumatic change in his mood from yesterday. We continued our discussion about avocational activities with the goal of identifying a plan to give structure to his life. Objective - Vital Signs Vital signs: Vital Signs Temp 97.8 F 04/04/19 07:30 Pulse 76 04/04/19 07:30 Resp 14 04/04/19 07:30 BP 104/52 04/04/19 07:30 Pulse Ox - Exam He presented as an obese 48-year-old male who was pleasant on approach. He made contact and attended to interview. He had a depressed and unreactive facial expression. He was alert and oriented to person, place and time. He walks slowly with a waddling gait. His speech was spontaneous with decreased rate, rhythm and volume. His affect was depressed and not reactive. He denied suicidal ideation or wishes. He expressed feelings of hopelessness, helplessness and worthlessness. He did not express ideas reference, paranoid ideation or delusions. His thinking was abstract and associations were coherent and logical. He denied hallucinations and did not appear to be responding to internal stimuli. - Labs Labs: Abnormal Lab Results - Last 24 Hours (Table) 04/03/19 04/03/19 04/04/19 Range/Units 17:44 20:31 07:41 POC Glucose (mg/dL) 125 H 191 H 190 H (75-99) mg/dL 04/04/19 Range/Units 12:53 POC Glucose (mg/dL) 179 H (75-99) mg/dL Assessment and Plan Assessment: He reports continued feelings depression uncomplicated by psychosis or suicidality. Plan: Continue current treatment and treatment plan. Obtain lithium level. Titrate lithium according to serum lithium level.
[2019-04-04 17:33] LABS: Glucose,Whole Blood 118 mg/dL (75-99)
[2019-04-04 20:21] LABS: Glucose,Whole Blood 143 mg/dL (75-99)
[2019-04-04] MEDS: PRAZOSIN 1 MG CAP PO SCH (21:53)
[2019-04-04] MEDS: QUEtiapine 50 MG TAB PO SCH (21:53)
[2019-04-04] MEDS: MELATONIN 3 MG TABLET PO SCH (21:53)
[2019-04-04] MEDS: LORazepam 0.5 MG TAB PO PRN (21:55)
[2019-04-05 07:55] LABS: Glucose,Whole Blood 192 mg/dL (75-99)
[2019-04-05] MEDS: INSULIN ASPART (NovoLOG) 100 UNIT/ML VIAL SQ SCH ×7 (08:14→21:22)
[2019-04-05] MEDS: INSULIN DETEMIR (LEVEMIR) 100 UNIT/ML SYR SQ SCH (09:17)
[2019-04-05] MEDS: LITHIUM CARBONATE ER 450 MG TABLET.ER PO SCH ×2 (09:18→21:23)
[2019-04-05] MEDS: ALLOPURINOL 300 MG TAB PO SCH (09:18)
[2019-04-05] MEDS: metFORMIN 500 MG TAB PO SCH ×2 (09:18→21:22)
[2019-04-05] MEDS: ATORVASTATIN 20 MG TAB PO SCH (09:18)
[2019-04-05] MEDS: PANTOPRAZOLE 40 MG TABLET PO SCH (09:18)
[2019-04-05] MEDS: DULoxetine HCL 30 MG CAPSULE.DR PO SCH ×2 (09:18→21:23)
[2019-04-05] MEDS: GABAPENTIN 400 MG CAP PO SCH ×3 (09:18→21:23)
[2019-04-05] MEDS: FAMOTIDINE 20 MG TAB PO SCH ×2 (09:18→21:22)
[2019-04-05 12:31] LABS: Glucose,Whole Blood 202 mg/dL (75-99)
--- NOTE | 2019-04-05 14:51 | P.PN ---
Subjective Progress Note Date: 04/05/19 Principal diagnosis: Major depressive disorder recurrent without psychotic features, cocaine use disorder unspecified, cannabis use disorder unspecified diabetes mellitus, I reviewed the medical record, interviewed the patient and discuss his treatment and treatment plan during team meeting. He reports feeling "a little" better today than yesterday. However he continues to express feelings of depression, hopelessness and helplessness. He denied having suicidal thoughts but is anxious about returning to his home. We continued her discussion of a vocational activities and discuss opportunities for more social engagement. Objective - Vital Signs Vital signs: Vital Signs Temp 97.8 F 04/04/19 07:30 Pulse 94 04/05/19 08:19 Resp 20 04/05/19 08:19 BP 111/75 04/05/19 08:19 Pulse Ox - Exam He presented as an obese 48-year-old male who was pleasant on approach. He made contact and attended to interview. He had a depressed and unreactive facial expression. He was alert and oriented to person, place and time. He walks slowly with a waddling gait. His speech was spontaneous with decreased rate, rhythm and volume. His affect was depressed and not reactive. He denied suicidal ideation or wishes. He expressed feelings of hopelessness, helplessness and worthlessness. He did not express ideas reference, paranoid ideation or delusions. His thinking was abstract and associations were coherent and logical. He denied hallucinations and did not appear to be responding to internal stimuli. - Labs Labs: Abnormal Lab Results - Last 24 Hours (Table) 04/04/19 04/04/19 04/05/19 Range/Units 17:28 20:18 07:53 POC Glucose (mg/dL) 118 H 143 H 192 H (75-99) mg/dL 04/05/19 Range/Units 12:28 POC Glucose (mg/dL) 202 H (75-99) mg/dL Serum lithium level 0.7 Assessment and Plan Assessment: He reports continued feelings depression uncomplicated by psychosis or suicidality. Plan: Continue current treatment and treatment plan.
[2019-04-05 17:16] LABS: Glucose,Whole Blood 103 mg/dL (75-99)
[2019-04-05 20:09] LABS: Glucose,Whole Blood 124 mg/dL (75-99)
[2019-04-05] MEDS: MELATONIN 3 MG TABLET PO SCH (21:25)
[2019-04-05] MEDS: PRAZOSIN 1 MG CAP PO SCH (21:26)
[2019-04-05] MEDS: QUEtiapine 50 MG TAB PO SCH (21:26)
[2019-04-06 08:05] LABS: Glucose,Whole Blood 186 mg/dL (75-99)
[2019-04-06] MEDS: INSULIN DETEMIR (LEVEMIR) 100 UNIT/ML SYR SQ SCH (08:07)
[2019-04-06] MEDS: INSULIN ASPART (NovoLOG) 100 UNIT/ML VIAL SQ SCH ×7 (08:08→20:09)
[2019-04-06] MEDS: ATORVASTATIN 20 MG TAB PO SCH (08:09)
[2019-04-06] MEDS: PANTOPRAZOLE 40 MG TABLET PO SCH (08:09)
[2019-04-06] MEDS: metFORMIN 500 MG TAB PO SCH ×2 (08:09→21:50)
[2019-04-06] MEDS: LITHIUM CARBONATE ER 450 MG TABLET.ER PO SCH ×2 (08:09→21:51)
[2019-04-06] MEDS: DULoxetine HCL 30 MG CAPSULE.DR PO SCH ×2 (08:09→21:50)
[2019-04-06] MEDS: FAMOTIDINE 20 MG TAB PO SCH ×2 (08:09→21:51)
[2019-04-06] MEDS: ALLOPURINOL 300 MG TAB PO SCH (08:09)
[2019-04-06] MEDS: GABAPENTIN 400 MG CAP PO SCH ×3 (08:09→21:50)
--- NOTE | 2019-04-06 12:17 | P.PN ---
Progress Note - Text Progress Note Date: 04/06/19 Interval history: Patient was seen laying down in his bed and appeared to be disheveled and wearing street clothing and was directable and agreeable secure in the office. Patient had a soft tone of voice and appeared to be timid. He states that he is doing "all right today" and claims that his depression has been mildly improving on the medications. He states that he did have some upset stomach earlier today as his Cymbalta was increased. Patient denied any overnight complaints and states that he slept fairly well and has a good appetite. He states he's been going to groups. At this time patient denies any suicidal or homicidal ideations intent or plan. Denies any Auditory or visual hallucinations. Patient denies any side effects from the medications and has been compliant with meds. Mental status exam: General Appearance: Patient appears to be obese, stated age is alert, pleasant, and timid. Disheveled appearance. Behavior: No agitated behavior. Patient is calm and directable Speech: Patient's speech is fluent and nonpressured. Soft tone. Mood/Affect: Mood is improving loudly, affect is congruent and constricted. Suicidality/Homicidality: Patient denies having any suicidal or homicidal ideation intent or plan. Perceptions: Patient denies any auditory or visual hallucinations. Though content/process: There is no evidence of any delusional thought content and thought process is linear and goal-directed. [place]. Memory and concentration: AOX3, grossly intact for the purposes of this session Judgment and insight: improving mildly. Assessment/Plan: Continue with current diagnosis. Patient continues to meet criteria for inpatient psychiatric admission for symptom stabilization and safety.Patient will be maintained on current psychotropic medication regimen. Monitor for medication compliance and for any psychotropic medication side effects. Will continue to monitor ongoing response to treatment.
[2019-04-06 12:42] LABS: Glucose,Whole Blood 151 mg/dL (75-99)
[2019-04-06 17:39] LABS: Glucose,Whole Blood 97 mg/dL (75-99)
[2019-04-06 20:04] LABS: Glucose,Whole Blood 213 mg/dL (75-99)
[2019-04-06] MEDS: MELATONIN 3 MG TABLET PO SCH (21:50)
[2019-04-06] MEDS: PRAZOSIN 1 MG CAP PO SCH (21:50)
[2019-04-06] MEDS: QUEtiapine 50 MG TAB PO SCH (21:51)
[2019-04-07 07:46] LABS: Glucose,Whole Blood 166 mg/dL (75-99)
[2019-04-07] MEDS: INSULIN DETEMIR (LEVEMIR) 100 UNIT/ML SYR SQ SCH (07:54)
[2019-04-07] MEDS: PANTOPRAZOLE 40 MG TABLET PO SCH (07:55)
[2019-04-07] MEDS: INSULIN ASPART (NovoLOG) 100 UNIT/ML VIAL SQ SCH ×7 (07:55→20:38)
[2019-04-07] MEDS: metFORMIN 500 MG TAB PO SCH ×2 (07:56→21:35)
[2019-04-07] MEDS: FAMOTIDINE 20 MG TAB PO SCH ×2 (07:56→21:35)
[2019-04-07] MEDS: LITHIUM CARBONATE ER 450 MG TABLET.ER PO SCH ×2 (07:56→21:35)
[2019-04-07] MEDS: ALLOPURINOL 300 MG TAB PO SCH (07:56)
[2019-04-07] MEDS: DULoxetine HCL 30 MG CAPSULE.DR PO SCH ×2 (07:56→21:35)
[2019-04-07] MEDS: ATORVASTATIN 20 MG TAB PO SCH (07:56)
[2019-04-07] MEDS: GABAPENTIN 400 MG CAP PO SCH ×3 (07:56→21:35)
--- NOTE | 2019-04-07 10:23 | P.PN ---
Progress Note - Text Progress Note Date: 04/07/19 Interval history: Patient was seen laying down in his bed and was directable and agreeable speak to casualty underwriter. Patient continues to have a soft tone of voice and appeared to have a disheveled appearance. Patient states that he has been sleeping during the day quite a bit however has been trying to attempt to go to groups in the afternoon. He states that he is doing "better" today and claims that his depression has been mildly improving. Patient denied any overnight complaints and states that he slept fairly well and has a good appetite. At this time patient denies any suicidal or homicidal ideations intent or plan. Denies any Auditory or visual hallucinations. Patient denies any side effects from the medications and has been compliant with meds. Mental status exam: General Appearance: Patient appears to be obese, stated age is alert, pleasant, and timid. Disheveled appearance/poor hygiene. Behavior: No agitated behavior. Patient is calm and directable Speech: Patient's speech is fluent and nonpressured. Soft tone. Mood/Affect: Mood is improving mildy, affect is congruent and inconstricted. Suicidality/Homicidality: Patient denies having any suicidal or homicidal ideation intent or plan. Perceptions: Patient denies any auditory or visual hallucinations. Though content/process: There is no evidence of any delusional thought content and thought process is linear and goal-directed. [place]. Memory and concentration: AOX3, grossly intact for the purposes of this session Judgment and insight: improving mildly. Assessment/Plan: Continue with current diagnosis. Patient continues to meet criteria for inpatient psychiatric admission for symptom stabilization and s afety.Patient will be maintained on current psychotropic medication regimen. Monitor for medication compliance and for any psychotropic medication side effects. Will continue to monitor ongoing response to treatment.
[2019-04-07 12:47] LABS: Glucose,Whole Blood 150 mg/dL (75-99)
[2019-04-07 17:31] LABS: Glucose,Whole Blood 120 mg/dL (75-99)
[2019-04-07 20:23] LABS: Glucose,Whole Blood 227 mg/dL (75-99)
[2019-04-07] MEDS: PRAZOSIN 1 MG CAP PO SCH (21:35)
[2019-04-07] MEDS: MELATONIN 3 MG TABLET PO SCH (21:35)
[2019-04-07] MEDS: QUEtiapine 50 MG TAB PO SCH (21:36)
[2019-04-07] MEDS: LORazepam 0.5 MG TAB PO PRN (21:37)
[2019-04-08 07:42] LABS: Glucose,Whole Blood 176 mg/dL (75-99)
[2019-04-08] MEDS: INSULIN DETEMIR (LEVEMIR) 100 UNIT/ML SYR SQ SCH (07:54)
[2019-04-08] MEDS: INSULIN ASPART (NovoLOG) 100 UNIT/ML VIAL SQ SCH ×7 (07:54→20:21)
[2019-04-08] MEDS: PANTOPRAZOLE 40 MG TABLET PO SCH (08:58)
[2019-04-08] MEDS: ATORVASTATIN 20 MG TAB PO SCH (08:59)
[2019-04-08] MEDS: FAMOTIDINE 20 MG TAB PO SCH ×2 (08:59→21:43)
[2019-04-08] MEDS: LITHIUM CARBONATE ER 450 MG TABLET.ER PO SCH ×2 (08:59→21:41)
[2019-04-08] MEDS: ALLOPURINOL 300 MG TAB PO SCH (08:59)
[2019-04-08] MEDS: GABAPENTIN 400 MG CAP PO SCH ×3 (08:59→21:44)
[2019-04-08] MEDS: DULoxetine HCL 30 MG CAPSULE.DR PO SCH (08:59)
[2019-04-08] MEDS: metFORMIN 500 MG TAB PO SCH ×2 (08:59→21:41)
[2019-04-08 12:39] LABS: Glucose,Whole Blood 138 mg/dL (75-99)
--- NOTE | 2019-04-08 14:00 | P.PN ---
Subjective Progress Note Date: 04/08/19 Principal diagnosis: Major depressive disorder recurrent without psychotic features, cocaine use disorder unspecified, cannabis use disorder unspecified diabetes mellitus, I reviewed the medical record, interviewed the patient and discuss his treatment and treatment plan during team meeting. He complained of muscle twitches since we increased the fluoxetine to 30 mg twice a day. He feels as twitching is intolerable and requested to be placed on a different antidepressant. We reviewed his antidepressant history and agreed to another trial of Wellbutrin. He feels "upbeat" because his roommates visited over the weekend. Overall he feels that his mood has improved.. He attributes the changes primarily to the control of his diabetes. He alleged that he was unaware of the effect of uncontrolled diabetes on his mood and thinking. Objective - Vital Signs Vital signs: Vital Signs Temp 97.9 F 04/07/19 06:40 Pulse 75 04/08/19 07:18 Resp 16 04/08/19 07:18 BP 124/53 04/08/19 07:18 Pulse Ox Intake & Output 04/07/19 04/08/19 04/08/19 18:59 06:59 18:59 Weight 143.1 kg - Exam He presented as an obese and unshaven 48-year-old male who was pleasant on approach. He wore an oversized T-shirt and pajama bottoms. He walks slowly with a "waddling" gait. He made eye contact and attended to interview. He had no prominent physical abnormalities. He had a blunted facial expression. He is alert and oriented to person, place and time. He showed psychomotor retardation but no abnormal movements. His speech was slow with decreased volume and rhythm. He had no articulation difficulties. His affect was blunted but stable and appropriate. He denied suicidal ideation or wishes. He denied homicidal ideation. He denied feeling hopeless or helpless. He continues to express feelings of worthlessness and uselessness. He did not express ideas reference, paranoid ideation or delusions. His thinking was concrete and associations were coherent and logical. He denied hallucinations did not appear to be responding to internal stimuli. - Labs Labs: Abnormal Lab Results - Last 24 Hours (Table) 04/07/19 04/07/19 04/08/19 Range/Units 17:30 20:21 07:40 POC Glucose (mg/dL) 120 H 227 H 176 H (75-99) mg/dL 04/08/19 Range/Units 12:37 POC Glucose (mg/dL) 138 H (75-99) mg/dL Assessment and Plan Assessment: Overall his mood has improved and is currently denying suicidal ideation. He appears to have developed some neuromuscular side effects to duloxetine. Plan: Tapered and discontinued duloxetine. Begin Wellbutrin XL 150 mg daily and titrated according to clinical response and tolerance. Continue Lithobid 450 mg twice a day and Seroquel 50 mg at bedtime. Continue other medications as prescribed. Encourage participation in therapeutic groups and activities. Kera stoddard clinical status response to treatment daily basis.
[2019-04-08 18:09] LABS: Glucose,Whole Blood 98 mg/dL (75-99)
[2019-04-08 19:56] LABS: Glucose,Whole Blood 158 mg/dL (75-99)
[2019-04-08] MEDS: MELATONIN 3 MG TABLET PO SCH (21:41)
[2019-04-08] MEDS: PRAZOSIN 1 MG CAP PO SCH (21:41)
[2019-04-08] MEDS: QUEtiapine 50 MG TAB PO SCH (21:41)
[2019-04-08] MEDS: LORazepam 0.5 MG TAB PO PRN (21:45)
[2019-04-09 07:45] LABS: Glucose,Whole Blood 147 mg/dL (75-99)
[2019-04-09] MEDS: INSULIN ASPART (NovoLOG) 100 UNIT/ML VIAL SQ SCH ×7 (07:54→20:23)
[2019-04-09] MEDS: INSULIN DETEMIR (LEVEMIR) 100 UNIT/ML SYR SQ SCH (07:56)
[2019-04-09] MEDS: DULoxetine HCL 30 MG CAPSULE.DR PO SCH (08:56)
[2019-04-09] MEDS: PANTOPRAZOLE 40 MG TABLET PO SCH (08:56)
[2019-04-09] MEDS: metFORMIN 500 MG TAB PO SCH ×3 (08:56→21:09)
[2019-04-09] MEDS: ALLOPURINOL 300 MG TAB PO SCH (08:56)
[2019-04-09] MEDS: FAMOTIDINE 20 MG TAB PO SCH ×2 (08:56→21:08)
[2019-04-09] MEDS: ATORVASTATIN 20 MG TAB PO SCH (08:56)
[2019-04-09] MEDS: GABAPENTIN 400 MG CAP PO SCH ×3 (08:56→21:09)
[2019-04-09] MEDS: LITHIUM CARBONATE ER 450 MG TABLET.ER PO SCH ×2 (08:56→21:08)
[2019-04-09] MEDS: buPROPion XL 150 MG TAB.ER.24H PO SCH (08:56)
[2019-04-09 12:57] LABS: Glucose,Whole Blood 122 mg/dL (75-99)
--- NOTE | 2019-04-09 14:16 | P.PN ---
Subjective Progress Note Date: 04/09/19 Principal diagnosis: Major depressive disorder recurrent without psychotic features, cocaine use disorder unspecified, cannabis use disorder unspecified diabetes mellitus, I reviewed the medical record, interviewed the patient and discuss his treatment and treatment plan during team being. He reports a decrease in muscle twitching since we decrease the duloxetine. He experienced no adverse effects initial dose of Wellbutrin. He described his mood as "okay". He denied thoughts of or suicide. He denied severe and unremitting feelings of depression. Objective - Vital Signs Vital signs: Vital Signs Temp 98.0 F 04/09/19 06:18 Pulse 90 04/09/19 06:18 Resp 16 04/09/19 06:18 BP 136/83 04/09/19 06:18 Pulse Ox - Exam He presented as a disheveled appearing 48-year-old obese male who was pleasant on approach. He made eye contact and attended to the interview. He had psychomotor slowing but no abnormal movements. His speech was spontaneous with decreased rate, rhythm and volume. His affect was depressed but reactive. She denied suicidal ideation or wishes. He denied homicidal ideation. He denied feeling hopeless, helpless or worthless. He did not express ideas reference, paranoid ideation or delusions. His thinking was abstract and associations were coherent, logical and goal directed. He denied hallucinations and did not appear to be responding to internal stimuli. - Labs Labs: Abnormal Lab Results - Last 24 Hours (Table) 04/08/19 04/09/19 04/09/19 Range/Units 19:55 07:42 12:55 POC Glucose (mg/dL) 158 H 147 H 122 H (75-99) mg/dL Assessment and Plan Assessment: U decrease in muscle twitching with the decrease in duloxetine. He has residual symptoms of depression but overall clinical status is much improved from admission. Plan: Plan for discharge on 04/10/2019. His last dose of duloxetine as tomorrow. Continue other medications including Wellbutrin XL 150 mg daily, Lithobid 450 mg twice a day, melatonin 3 mg at bedtime and Seroquel 50 mg at bedtime.
[2019-04-09 17:24] LABS: Glucose,Whole Blood 82 mg/dL (75-99)
[2019-04-09 20:21] LABS: Glucose,Whole Blood 164 mg/dL (75-99)
[2019-04-09] MEDS: MELATONIN 3 MG TABLET PO SCH (21:08)
[2019-04-09] MEDS: QUEtiapine 50 MG TAB PO SCH (21:08)
[2019-04-09] MEDS: PRAZOSIN 1 MG CAP PO SCH (21:10)
[2019-04-09] MEDS: LORazepam 0.5 MG TAB PO PRN (21:10)
[2019-04-10 07:51] LABS: Glucose,Whole Blood 200 mg/dL (75-99)
[2019-04-10] MEDS: INSULIN ASPART (NovoLOG) 100 UNIT/ML VIAL SQ SCH ×7 (07:51→21:37)
[2019-04-10] MEDS: DULoxetine HCL 30 MG CAPSULE.DR PO SCH (07:52)
[2019-04-10] MEDS: LITHIUM CARBONATE ER 450 MG TABLET.ER PO SCH ×2 (07:52→21:00)
[2019-04-10] MEDS: INSULIN DETEMIR (LEVEMIR) 100 UNIT/ML SYR SQ SCH (07:52)
[2019-04-10] MEDS: buPROPion XL 150 MG TAB.ER.24H PO SCH (07:52)
[2019-04-10] MEDS: ATORVASTATIN 20 MG TAB PO SCH (07:52)
[2019-04-10] MEDS: FAMOTIDINE 20 MG TAB PO SCH ×2 (07:52→21:01)
[2019-04-10] MEDS: GABAPENTIN 400 MG CAP PO SCH ×3 (07:52→21:01)
[2019-04-10] MEDS: PANTOPRAZOLE 40 MG TABLET PO SCH (07:52)
[2019-04-10] MEDS: metFORMIN 500 MG TAB PO SCH ×2 (07:53→21:01)
[2019-04-10] MEDS: ALLOPURINOL 300 MG TAB PO SCH (07:53)
[2019-04-10 12:45] LABS: Glucose,Whole Blood 130 mg/dL (75-99)
--- NOTE | 2019-04-10 14:21 | P.PN ---
Subjective Progress Note Date: 04/10/19 Principal diagnosis: Major depressive disorder recurrent without psychotic features, cocaine use disorder unspecified, cannabis use disorder unspecified diabetes mellitus, I reviewed the medical record, interviewed the patient and discuss his treatment and treatment plan during team being. He was markedly apprehensive about her plan for discharge today. As the discharge time approached he became more and more distressed and communicated thoughts of suicide to the nurse and manager social work. He expressed continued feelings of worthlessness and hopelessness but denied specific suicidal ideation, intent or plan. Major concern was the time between discharge and his appointment with his therapist that [facility]. Objective - Vital Signs Vital signs: Vital Signs Temp 97.6 F 04/10/19 06:32 Pulse 78 04/10/19 06:32 Resp 16 04/10/19 06:32 BP 124/54 04/10/19 06:32 Pulse Ox - Exam He presented as a disheveled appearing 48-year-old obese male who was pleasant on approach. He made eye contact and attended to the interview. He had psychomotor slowing but no abnormal movements. His speech was spontaneous with decreased rate, rhythm and volume. His affect was depressed but reactive. He was vague about suicidal ideation. He denied homicidal ideation. He admitted to feeling hopeless, helpless or worthless. He did not express ideas reference, paranoid ideation or delusions. His thinking was abstract and associations were coherent, logical and goal directed. He denied hallucinations and did not appear to be responding to internal stimuli. - Labs Labs: Abnormal Lab Results - Last 24 Hours (Table) 04/09/19 04/10/19 04/10/19 Range/Units 20:20 07:48 12:44 POC Glucose (mg/dL) 164 H 200 H 130 H (75-99) mg/dL Assessment and Plan Assessment: He is very apprehensive about returning home. I am concerned if he were to discharge him in his current state he would not comply with his diabetic regimen and will be readmitted with diabetic ketoacidosis. Plan: Cancel the discharge. He received his last dose of duloxetine this morning. Continue other medications as written. Reevaluate discharge plan tomorrow when he is less distressed.
[2019-04-10] MEDS: LORazepam 0.5 MG TAB PO PRN ×2 (15:49→21:00)
[2019-04-10 17:19] LABS: Glucose,Whole Blood 90 mg/dL (75-99)
[2019-04-10 20:16] LABS: Glucose,Whole Blood 132 mg/dL (75-99)
[2019-04-10] MEDS: QUEtiapine 50 MG TAB PO SCH (21:01)
[2019-04-10] MEDS: PRAZOSIN 1 MG CAP PO SCH (21:01)
[2019-04-10] MEDS: MELATONIN 3 MG TABLET PO SCH (21:01)
[2019-04-11 07:57] LABS: Glucose,Whole Blood 162 mg/dL (75-99)
[2019-04-11] MEDS: INSULIN DETEMIR (LEVEMIR) 100 UNIT/ML SYR SQ SCH (08:03)
[2019-04-11] MEDS: INSULIN ASPART (NovoLOG) 100 UNIT/ML VIAL SQ SCH ×7 (08:03→20:32)
[2019-04-11] MEDS: buPROPion XL 150 MG TAB.ER.24H PO SCH (08:04)
[2019-04-11] MEDS: ALLOPURINOL 300 MG TAB PO SCH (08:04)
[2019-04-11] MEDS: PANTOPRAZOLE 40 MG TABLET PO SCH (08:04)
[2019-04-11] MEDS: ATORVASTATIN 20 MG TAB PO SCH (08:04)
[2019-04-11] MEDS: FAMOTIDINE 20 MG TAB PO SCH ×2 (08:05→20:47)
[2019-04-11] MEDS: metFORMIN 500 MG TAB PO SCH ×2 (08:05→20:47)
[2019-04-11] MEDS: LITHIUM CARBONATE ER 450 MG TABLET.ER PO SCH ×2 (08:05→20:48)
[2019-04-11] MEDS: GABAPENTIN 400 MG CAP PO SCH ×3 (08:05→20:47)
[2019-04-11 08:20] VITALS: RESP 20
[2019-04-11] MEDS: VORTIOXETINE HYDROBROMIDE 10 MG TABLET PO SCH (10:14)
[2019-04-11] MEDS: LORazepam 0.5 MG TAB PO PRN ×2 (10:59→20:50)
[2019-04-11 12:51] LABS: Glucose,Whole Blood 139 mg/dL (75-99)
--- NOTE | 2019-04-11 13:31 | P.PN ---
Subjective Progress Note Date: 04/11/19 Principal diagnosis: Major depressive disorder recurrent without psychotic features, cocaine use disorder unspecified, cannabis use disorder unspecified diabetes mellitus, I reviewed the medical record, interviewed the patient and discuss his treatment and treatment plan during team being. He is disappointed that he was not discharged yesterday and appeared to minimize the importance of the suicidal thoughts expressed staff. He described continued feelings depression, hopel essness and helplessness. He feels worthless and "useless". He expressed apprehension about returning home. When asked about suicidal thoughts he replied that he "always" has thoughts of suicide. Objective - Vital Signs Vital signs: Vital Signs Temp 97.8 F 04/11/19 06:50 Pulse 90 04/11/19 08:18 Resp 20 04/11/19 08:18 BP 138/86 04/11/19 08:18 Pulse Ox - Exam He presented as a disheveled appearing 48-year-old obese male who was pleasant on approach. He made eye contact and attended to the interview. He had psychomotor slowing but no abnormal movements. His speech was spontaneous with decreased rate, rhythm and volume. His affect was depressed but reactive. He was vague about suicidal ideation. He denied homicidal ideation. He admitted to feeling hopeless, helpless or worthless. He did not express ideas reference, paranoid ideation or delusions. His thinking was abstract and associations were coherent, logical and goal directed. He denied hallucinations and did not appear to be responding to internal stimuli. - Labs Labs: Abnormal Lab Results - Last 24 Hours (Table) 04/10/19 04/11/19 04/11/19 Range/Units 20:14 07:44 12:49 POC Glucose (mg/dL) 132 H 162 H 139 H (75-99) mg/dL Assessment and Plan Assessment: He is chronically depressed but appears improve from admission. Remains apprehensive about discharge. Plan: Discharge on 04/12/2019. Restart Trintellix 10 mg daily. Continue Wellbutrin XL 150 mg daily and Lithobid 450 mg twice a day.
[2019-04-11 17:22] LABS: Glucose,Whole Blood 122 mg/dL (75-99)
[2019-04-11 20:20] LABS: Glucose,Whole Blood 147 mg/dL (75-99)
[2019-04-11] MEDS: PRAZOSIN 1 MG CAP PO SCH (20:47)
[2019-04-11] MEDS: MELATONIN 3 MG TABLET PO SCH (20:47)
[2019-04-11] MEDS: QUEtiapine 50 MG TAB PO SCH (20:47)
[2019-04-12 07:01] VITALS: BP 114/55; PULSE 71; TEMP 97.6
[2019-04-12 07:50] LABS: Glucose,Whole Blood 153 mg/dL (75-99)
[2019-04-12] MEDS: INSULIN ASPART (NovoLOG) 100 UNIT/ML VIAL SQ SCH ×4 (07:51→12:43)
[2019-04-12] MEDS: INSULIN DETEMIR (LEVEMIR) 100 UNIT/ML SYR SQ SCH (07:51)
[2019-04-12] MEDS: LITHIUM CARBONATE ER 450 MG TABLET.ER PO SCH (08:30)
[2019-04-12] MEDS: VORTIOXETINE HYDROBROMIDE 10 MG TABLET PO SCH (08:30)
[2019-04-12] MEDS: FAMOTIDINE 20 MG TAB PO SCH (08:30)
[2019-04-12] MEDS: GABAPENTIN 400 MG CAP PO SCH (08:31)
[2019-04-12] MEDS: buPROPion XL 150 MG TAB.ER.24H PO SCH (08:31)
[2019-04-12] MEDS: metFORMIN 500 MG TAB PO SCH (08:31)
[2019-04-12] MEDS: ATORVASTATIN 20 MG TAB PO SCH (08:31)
[2019-04-12] MEDS: PANTOPRAZOLE 40 MG TABLET PO SCH (08:31)
[2019-04-12] MEDS: ALLOPURINOL 300 MG TAB PO SCH (08:32)
--- NOTE | 2019-04-12 11:25 | P.DS ---
Providers Date of admission: 04/01/19 14:41 Attending physician: Basil Gaitan MD Consults: 04/01/19 15:17 Consult Physician Routine Consulting Provider: Dillon Magana Consult Reason/Comments: H&P and medical and diabetes Do you want consulting provider notified?: Yes Primary care physician: Rachana Harper - Discharge Diagnosis(es) (1) Suicidal ideation Current Visit: No Status: Resolved Priority: Low (2) Major depressive disorder, recurrent episode Current Visit: Yes Status: Chronic Priority: Medium (3) Cocaine use disorder, mild, abuse Current Visit: No Status: Chronic Priority: Medium (4) Uncontrolled diabetes mellitus Current Visit: No Status: Resolved Priority: High Hospital Course: He is a 48-year-old single male who has a history of cocaine use disorder, a depressive disorder and insulin-dependent diabetes mellitus. He presented to the on 03/30/2019 with complaints of depression, suicidal ideation and a blood sugar 766. He was admitted to medicine for the management of hyperglycemia. He was last discharged from this unit on 02/05/2019. She let she was doing well until February when he stopped taking all his prescribed medications including insulin one month prior to admission. He attributed to worsening depression to 2 specific traumatic events. He stated that his cousin was murdered in February and his father's ex-machine bookkeeper of a heart attack. He described feelings depression, hopelessness, helplessness and worthlessness. He had thoughts of suicide without specific intent or plan other than the thought that he would from not taking his medications. He described a range of depressive symptoms include impairment in sleep, energy, concentration, and appetite. He denied experiencing such psychotic symptoms as hallucinations, delusions or thought disturbances. He denied severe and persistent anxiety. Denied panic attacks. He denied obsessions or compulsions. He denied use of alcohol and alleged that he used cocaine only on the day of admission. He is had multiple psychiatric hospitalization with at least 8 to this facility. He history of noncompliance with outpatient treatment. He's been diagnosed with several disorders including of major depressive disorder, bipolar disorder, cocaine use disorder, opiate use disorder, cannabis use disorder, anxiety disorder, and borderline personality disorder. We admitted him to the psychiatric unit under care of this report writer. We provided a comprehensive biopsychosocial assessment. The documentum consultant unix analyst completed initial physical exam and medical history and diagnosis uncontrolled diabetes mellitus with a history of hyperglycemia without any ketoacidosis, hyperlipidemia, hypertriglyceridemia, hypercholesterolemia, hypertension, sleep apnea, neuropathy, degenerative joint disease, morbid obesity. The documentum consultant recommended to continue the medications prescribed during his medical hospitalization including allopurinol 300 mg daily, Lipitor 20 mg daily, Colace 100 mg twice a day, Pepcid 20 mg twice a day, Neurontin 400 mg 3 times a day, NovoLog 40 units subcu twice a day, NovoLog 20 units subcu after supper, Levemir 80 mg subcu daily, melatonin 3 mg at bedtime, Glucophage 1000 mg twice a day, Protonix 40 mg daily, Minipress 1 mg at bedtime and Mylicon chewable 40 mg by mouth 4 times a day when necessary. After reviewing his long and complicated treatment history we decided on a trial of duloxetine. A dose of 60 mg per day he complained of muscle spasms and declined to continue the medication. We resumed his outpatient medications including Wellbutrin XL 150 mg daily and Trintellix 2 mg daily. His mood and suicidal ideation and fluctuated throughout the hospitalization. We attempted to discharge him on 04/10/2019 but he began expressing suicidal thoughts. He participated intermittently with therapeutic groups and activities. He posed no management problem and had no episodes of behavioral dyscontrol. He is POC glucose ranged from 82-284. At time of discharge she presented as a morbidly obese casually groomed 48-year-old male who was pleasant on approach. He made eye contact and attended to the interview. He had a blunted but bright facial expression. He is alert and oriented to person, place and time. He showed psychomotor retardation but no abnormal movements. His gait was slow but steady. His speech was spontaneous with decreased rate, rhythm and volume. He had no articulation difficulties. His affect was blunted but stable and appropriate. He denied suicidal ideation or wishes. He denied homicidal ideation. He denied feeling hopeless, helpless or worthless. He did not express ideas reference, paranoid ideation or delusions. His thinking was concrete but his associations were coherent and logical. He denied hallucinations and did not appear to be responding to internal stimuli. Patient Condition at Discharge: Stable Plan - Discharge Summary Discharge Rx Participant: No New Discharge Prescriptions: New buPROPion XL [Wellbutrin XL] 150 mg PO DAILY 30 Days #30 tab.er.24h Vortioxetine Hydrobromide [Trintellix] 10 mg PO DAILY tablet Continue Atorvastatin [Lipitor] 20 mg PO DAILY tab Allopurinol [Zyloprim] 300 mg PO DAILY tab Prazosin [Minipress] 1 mg PO HS metFORMIN HCL 1,000 mg PO BID QUEtiapine [SEROquel] 50 mg PO HS [place] Carbonate 300 mg PO TID #42 cap Melatonin 3 mg PO HS #30 tablet Pantoprazole [Protonix] 40 mg PO AC-BRKFST #14 tablet. Insulin Aspart [NovoLOG] 20 units SQ AC-SUPPER INSULIN ASPART (NovoLOG) [NovoLOG (formulary)] 20 unit SQ AC-SUPPER #1 pen Insulin Detemir [Levemir Flextouch] 80 unit SQ DAILY #1 pen Famotidine [Pepcid] 20 mg PO BID Docusate [Colace] 100 mg PO BID PRN cap PRN Reason: Constipation Simethicone Chew [Mylicon Chew] 40 mg PO QID PRN chew PRN Reason: Bloating Acetaminophen Tab [Tylenol] 650 mg PO Q6HR PRN tab PRN Reason: Fever And/ Or Pain Insulin Aspart [NovoLOG Flexpen] 40 unit SQ BID@0800,1200 INSULIN ASPART (NovoLOG) [NovoLOG (formulary)] See Protocol SQ ACHS Gabapentin [Neurontin] 400 mg PO TID #90 cap Discontinued DULoxetine HCL [Cymbalta] 30 mg PO BID #28 capsule. Vortioxetine Hydrobromide [Trintellix] 10 mg PO DAILY #14 tablet Discharge Medication List Allopurinol [Zyloprim] 300 mg PO DAILY tab 01/23/18 [Rx] Atorvastatin [Lipitor] 20 mg PO DAILY tab 01/23/18 [Rx] Prazosin [Minipress] 1 mg PO HS 05/11/18 [History] metFORMIN HCL 1,000 mg PO BID 01/22/19 [History] QUEtiapine [SEROquel] 50 mg PO HS 01/24/19 [History] INSULIN ASPART (NovoLOG) [NovoLOG (formulary)] 20 unit SQ AC-SUPPER #1 pen 02/05/19 [Rx] Insulin Aspart [NovoLOG] 20 units SQ AC-SUPPER 02/05/19 [History] Insulin Detemir [Levemir Flextouch] 80 unit SQ DAILY #1 pen 02/05/19 [Rx] [place] Carbonate 300 mg PO TID #42 cap 02/05/19 [Rx] Melatonin 3 mg PO HS #30 tablet 02/05/19 [Rx] Pantoprazole [Protonix] 40 mg PO AC-BRKFST #14 tablet.dr 02/05/19 [Rx] Acetaminophen Tab [Tylenol] 650 mg PO Q6HR PRN tab 04/01/19 [Rx] Docusate [Colace] 100 mg PO BID PRN cap 04/01/19 [Rx] Famotidine [Pepcid] 20 mg PO BID 04/01/19 [History] INSULIN ASPART (NovoLOG) [NovoLOG (formulary)] See Protocol SQ ACHS 04/01/19 [Hi story] Insulin Aspart [NovoLOG Flexpen] 40 unit SQ BID@0800,1200 04/01/19 [History] Simethicone Chew [Mylicon Chew] 40 mg PO QID PRN chew 04/01/19 [Rx] Gabapentin [Neurontin] 400 mg PO TID #90 cap 04/10/19 [Rx] buPROPion XL [Wellbutrin XL] 150 mg PO DAILY 30 Days #30 tab.er.24h 04/10/19 [Rx] Vortioxetine Hydrobromide [Trintellix] 10 mg PO DAILY tablet 04/12/19 [Rx] Follow up Appointment(s)/Referral(s): [facility] [Outside] - 04/17/19 3:00 pm (04-17-19 @ 3:00 with Alexi Salamanca 04-30-19 @ 2:[address] Ramirez) Meredith Reich MD [Primary Care Provider] - 1 Week Patient Instructions/Handouts: Cocaine Abuse (DC), Depression (DC) Activity/Diet/Wound Care/Special Instructions: Activity and diet as tolerated. Avoid the use of street drugs and alcohol. Take all medications as prescribed. When you are in need of refills on your medications please contact your medical provider and/or outpatient psychiatrist to have this done. Please go to scheduled outpatient appointment for aftercare treatment. If symptoms return or become worse, call the crisis line at and/or go to the nearest emergency room for evaluation. Discharge Disposition: HOME SELF-CARE
[2019-04-12 12:35] LABS: Glucose,Whole Blood 175 mg/dL (75-99)
== END 2019-04-12 13:54 | disposition home or self-care (01) | DRG 885 ==
LOC: 3MHU 14:41
PROVIDERS: ADMIT Psychiatry & Neurology Psychiatry; ATTEND Psychiatry & Neurology Psychiatry
DX: F33.9 Major depressive disorder, recurrent, unspecified (principal); R45.851 Suicidal ideations; Z68.42 Body mass index [BMI] 45.0-49.9, adult; F43.10 Post-traumatic stress disorder, unspecified; F60.3 Borderline personality disorder; E10.42 Type 1 diabetes mellitus with diabetic polyneuropathy; E10.65 Type 1 diabetes mellitus with hyperglycemia; Z79.4 Long term (current) use of insulin; E66.01 Morbid (severe) obesity due to excess calories; E78.00 Pure hypercholesterolemia, unspecified; E78.1 Pure hyperglyceridemia; E78.5 Hyperlipidemia, unspecified; F11.10 Opioid abuse, uncomplicated; F12.10 Cannabis abuse, uncomplicated; F14.10 Cocaine abuse, uncomplicated; G56.00 Carpal tunnel syndrome, unspecified upper limb; I10 Essential (primary) hypertension; Z79.899 Other long term (current) drug therapy; Z81.8 Family history of other mental and behavioral disorders; Z82.3 Family history of stroke; Z82.49 Family history of ischemic heart disease and other diseases of the circulatory system; Z83.3 Family history of diabetes mellitus; Z91.19 Patient's noncompliance with other medical treatment and regimen; Z62.810 Personal history of physical and sexual abuse in childhood; Z63.4 Disappearance and death of family member; M10.9 Gout, unspecified
CPT/HCPCS: 80061; 80178; 84443

== ENCOUNTER 2019-10-19 00:46 | Observation (INO) | payer MEDICARE, OTHER ==
[2019-10-19] MEDS ORDERED: SODIUM CHLORIDE 0.9% 1,000 ML IV STA ×3 (01:08→02:56)
[2019-10-19] MEDS ORDERED: SODIUM CHLORIDE 0.9% 500 ML 500 ML IV STA (01:08)
[2019-10-19 01:14] LABS: Glucose,Whole Blood >600 mg/dL (75-99)
--- NOTE | 2019-10-19 01:14 | ED ---
Recheck HPI - General Chief Complaint: Recheck/Abnormal Lab/Rx Stated Complaint: High blood sugar Time Seen by Provider: 10/19/19 01:07 Source: patient, RN notes reviewed, old records reviewed Mode of arrival: ambulatory Limitations: no limitations - History of Present Illness Initial Comments: This is a 48-year-old male DF for evaluation known history of diabetic diabetes, no history of hypoglycemia coming in with severe the elevated blood sugar abno rmal outpatient low blood sugar testing. Mild nausea no vomiting no significant abdominal pain no recent diarrhea, no new fevers no medications. MD Complaint: abnormal lab (Elevated blood sugar) -: unknown Returns Today for: Called Because of Abnormal Lab/Test (Took blood sugar at home) Symptoms Since Prior Visit: no new symptoms Context: other (None) Associated Symptoms: none - Related Data Home Medications Medication Instructions Recorded Confirmed Prazosin [Minipress] 1 mg PO HS 05/11/18 04/01/19 metFORMIN HCL 1,000 mg PO BID 01/22/19 04/01/19 QUEtiapine [SEROquel] 50 mg PO HS 01/24/19 04/01/19 Insulin Aspart [NovoLOG] 20 units SQ AC-SUPPER 02/05/19 04/01/19 Famotidine [Pepcid] 20 mg PO BID 04/01/19 04/01/19 INSULIN ASPART (NovoLOG) [NovoLOG See Protocol SQ ACHS 04/01/19 04/01/19 (formulary)] Insulin Aspart [NovoLOG Flexpen] 40 unit SQ BID@0800,1200 04/01/19 04/01/19 Previous Rx's Medication Instructions Recorded Atorvastatin [Lipitor] 20 mg PO DAILY tab 01/23/18 allopurinoL [Zyloprim] 300 mg PO DAILY tab 01/23/18 INSULIN ASPART (NovoLOG) [NovoLOG 20 unit SQ AC-SUPPER #1 pen 02/05/19 (formulary)] Insulin Detemir [Levemir Flextouch] 80 unit SQ DAILY #1 pen 02/05/19 [place] Carbonate 300 mg PO TID #42 cap 02/05/19 Melatonin 3 mg PO HS #30 tablet 02/05/19 Pantoprazole [Protonix] 40 mg PO AC-BRKFST #14 tablet. 02/05/19 Acetaminophen Tab [Tylenol] 650 mg PO Q6HR PRN tab 04/01/19 Docusate [Colace] 100 mg PO BID PRN cap 04/01/19 Simethicone Chew [Mylicon Chew] 40 mg PO QID PRN chew 04/01/19 Gabapentin [Neurontin] 400 mg PO TID #90 cap 04/10/19 buPROPion XL [Wellbutrin XL] 150 mg PO DAILY 30 Days #30 04/10/19 tab.er.24h Vortioxetine Hydrobromide 10 mg PO DAILY tablet 04/12/19 [Trintellix] Allergies Allergy/AdvReac Type Severity Reaction Status Date / Time ibuprofen [From Motrin] Allergy Rash/Hives Verified 10/19/19 01:04 Review of Systems ROS Statement: Those systems with pertinent positive or pertinent negative responses have been documented in the HPI. ROS Other: All systems not noted in ROS Statement are negative. Past Medical History Past Medical History: Diabetes Mellitus, Hyperlipidemia, Hypertension, Sleep Apnea/CPAP/BIPAP Additional Past Medical History / Comment(s): neuropathy,arthritis gout, depression. Crushing injury to left foot metacarpals repaired with plate and 16 screws in past broke lt foot(sx ), myron carpal tunnel. ( Cocaine free for 60 days 09/2019) History of Any Multi-Drug Resistant Organisms: None Reported Past Surgical History: Orthopedic Surgery Additional Past Surgical History / Comment(s): lasik eye sx ,left foot surgery. to reprair break-"has 2 plates and 16 screws" left groin boil cellulitis with excision and debriedment and NPWT performed by Dr. Estrella. Past Anesthesia/Blood Transfusion Reactions: No Reported Reaction Past Psychological History: Anxiety, Bipolar, Depression, PTSD Smoking Status: Never smoker Past Alcohol Use History: None Reported Past Drug Use History: Marijuana - Past Family History Mother Family Medical History: Cancer, Diabetes Mellitus Father Family Medical History: Myocardial Infarction ([place]) Additional Family Medical History / Comment(s): stroke General Exam Limitations: no limitations General appearance: alert, in no apparent distress, anxious Head exam: Present: atraumatic, normocephalic, normal inspection Eye exam: Present: normal appearance, PERRL, EOMI. Absent: scleral icterus, conjunctival injection, periorbital swelling ENT exam: Present: normal exam, mucous membranes moist Neck exam: Present: normal inspection. Absent: tenderness, meningismus, lymphadenopathy Respiratory exam: Present: normal lung sounds bilaterally. Absent: respiratory distress, wheezes, rales, rhonchi, stridor Cardiovascular Exam: Present: regular rate, normal rhythm, normal heart sounds. Absent: systolic murmur, diastolic murmur, rubs, gallop, clicks GI/Abdominal exam: Present: soft, normal bowel sounds. Absent: distended, tenderness, guarding, rebound, rigid Extremities exam: Present: normal inspection, full ROM, normal capillary refill. Absent: tenderness, pedal edema, joint swelling, calf tenderness Back exam: Present: normal inspection Neurological exam: Present: alert, oriented X3, CN II-XII intact Psychiatric exam: Present: normal affect, normal mood Skin exam: Present: warm, dry, intact, normal color. Absent: rash Course Vital Signs 10/19/19 10/19/19 00:57 02:25 Temperature 98.4 F 98.2 F Pulse Rate 78 86 Respiratory 20 20 Rate Blood Pressure 138/89 120/85 O2 Sat by Pulse 98 97 Oximetry - Reevaluation(s) Reevaluation #1: 10/19/19 02:58 medical records reviewed Reevaluation #2: 10/19/19 02:58 Patient blood sugar remains significantly elevated - Consultations Consultation #1: Spoke with [facility] were agreed to admit Medical Decision Making - Medical Decision Making 48 male DF for evaluation of abnormal labs, patient is significantly elevated blood sugar significant dehydration [place] for blood sugar control, rehydration persistent evaluation monitor - Lab Data Result diagrams: 10/19/19 01:46 Lab Results 10/19/19 10/19/19 10/19/19 Range/Units 01:11 01:46 01:46 WBC 8.6 (3.8-10.6) k/uL RBC 5.59 (4.30-5.90) m/uL Hgb 16.0 (13.0-17.5) gm/dL Hct 52.2 (39.0-53.0) % MCV 93.5 (80.0-100.0) fL MCH 28.6 (25.0-35.0) pg MCHC 30.6 L (31.0-37.0) g/dL RDW 13.1 (11.5-15.5) % Plt Count 191 (150-450) k/uL Neutrophils % 53 % Lymphocytes % 35 % Monocytes % 6 % Eosinophils % 3 % Basophils % 1 % Neutrophils # 4.5 (1.3-7.7) k/uL Lymphocytes # 3.0 (1.0-4.8) k/uL Monocytes # 0.5 (0-1.0) k/uL Eosinophils # 0.3 (0-0.7) k/uL Basophils # 0.1 (0-0.2) k/uL POC Glucose (mg/dL) >600 H (75-99) mg/dL POC Glu Bisque Placer ID Branden Bucknera Urine Color Light Yellow Urine Appearance Clear (Clear) Urine pH 5.5 (5.0-8.0) Ur Specific [place] 1.034 (1.001-1.035) Urine Protein Negative (Negative) Urine Glucose (UA) 4+ H (Negative) Urine Ketones Negative (Negative) Urine Blood Negative (Negative) Urine Nitrite Negative (Negative) Urine Bilirubin Negative (Negative) Urine Urobilinogen <2.0 (<2.0) mg/dL Ur Leukocyte Esterase Moderate H (Negative) Urine RBC 5 (0-5) /hpf Urine WBC 4 (0-5) /hpf Ur Squamous Epith Cells 2 (0-4) /hpf Hyaline Casts 1 (0-2) /lpf Urine Mucus Rare H (None) /hpf Acetone, Qual (Negative) 10/19/19 10/19/19 Range/Units 01:46 02:25 WBC (3.8-10.6) k/uL RBC (4.30-5.90) m/uL Hgb (13.0-17.5) gm/dL Hct (39.0-53.0) % MCV (80.0-100.0) fL MCH (25.0-35.0) pg MCHC (31.0-37.0) g/dL RDW (11.5-15.5) % Plt Count (150-450) k/uL Neutrophils % % Lymphocytes % % Monocytes % % Eosinophils % % Basophils % % Neutrophils # (1.3-7.7) k/uL Lymphocytes # (1.0-4.8) k/uL Monocytes # (0-1.0) k/uL Eosinophils # (0-0.7) k/uL Basophils # (0-0.2) k/uL POC Glucose (mg/dL) >600 H (75-99) mg/dL POC Glu [place]que Placer ID Keli Boyce Urine Color Urine Appearance (Clear) Urine pH (5.0-8.0) Ur Specific [place] (1.001-1.035) Urine Protein (Negative) Urine Glucose (UA) (Negative) Urine Ketones (Negative) Urine Blood (Negative) Urine Nitrite (Negative) Urine Bilirubin (Negative) Urine Urobilinogen (<2.0) mg/dL Ur Leukocyte Esterase (Negative) Urine RBC (0-5) /hpf Urine WBC (0-5) /hpf Ur Squamous Epith Cells (0-4) /hpf Hyaline Casts (0-2) /lpf Urine Mucus (None) /hpf Acetone, Qual Negative (Negative) - EKG Data -: EKG Interpreted by Me (EKG is sinus rhythms 87 NV 174 QRS 144 QTc 470) Disposition Clinical Impression: Hyperglycemia Disposition: ADMITTED IP TO THIS [facility] Condition: Fair Is patient prescribed a controlled substance at d/c from ED?: No Referrals: Meredith Reich MD [Primary Care Provider] - 1-2 days
[2019-10-19 02:28] LABS: Glucose,Whole Blood >600 mg/dL (75-99)
[2019-10-19 02:48] LABS: Basophils # (A) 0.1 k/uL (0-0.2); Basophils % (A) 1 %; Eosinophils # (A) 0.3 k/uL (0-0.7); Eosinophils % (A) 3 %; HCT 52.2 % (39.0-53.0); Lymphocytes % (A) 35 %; MCH 28.6 pg (25.0-35.0); MCHC 30.6 g/dL (31.0-37.0); MCV 93.5 fL (80.0-100.0); Mean Platelet Volume 10.1; Monocytes # (A) 0.5 k/uL (0-1.0); Monocytes % (A) 6 %; Neutrophils # (A) 4.5 k/uL (1.3-7.7); Neutrophils % (A) 53 %; Platelet Count 191 k/uL (150-450); RBC 5.59 m/uL (4.30-5.90); RDW 13.1 % (11.5-15.5); WBC 8.6 k/uL (3.8-10.6)
[2019-10-19 02:50] LABS: Appearance,Urine Clear (Clear); Bilirubin,Urine Negative (Negative); Blood,Urine Negative (Negative); Color,Urine Light Yellow; Glucose,Urine (UA) 4+ (Negative); Hyaline Casts,Urine 1 /lpf (0-2); Ketones,Urine Negative (Negative); Leukocyte Esterase,Urine Moderate (Negative); Mucus,Urine Rare /hpf; Nitrite,Urine Negative (Negative); PH, Urine 5.5 (5.0-8.0); Protein,Urine Negative (Negative); RBC,Urine 5 /hpf (0-5); Specific Gravity,Urine 1.034 (1.001-1.035); Squamous Epithelial Cell,Urine 2 /hpf (0-4); Urobilinogen,Urine <2.0 mg/dL (<2.0); WBC,Urine 4 /hpf (0-5)
[2019-10-19] MEDS ORDERED: INSULIN REGULAR 100 UNIT/ML VIAL SQ ONE (02:56)
[2019-10-19] MEDS ORDERED: INSULIN REGULAR 100 UNIT/ML VIAL IV ONE ×2 (02:56→05:08)
[2019-10-19 02:59] LABS: ALT 37 U/L (4-49); AST 39 U/L (17-59); African American GFR (CKD) >90 (>60 ml/min/1.73 sqM); Albumin 3.3 g/dL (3.5-5.0); Alkaline Phosphatase 116 U/L (38-126); Anion Gap 9 mmol/L; Blood Urea Nitrogen 10 mg/dL (9-20); Calcium 8.7 mg/dL (8.4-10.2); Carbon Dioxide 22 mmol/L (22-30); Chloride 99 mmol/L (98-107); Creatine Kinase 45 U/L (55-170); Magnesium 1.9 mg/dL (1.6-2.3); Non-African American GFR(CKD) >90 (>60 ml/min/1.73 sqM); Potassium 4.3 mmol/L (3.5-5.1); Sodium 130 mmol/L (137-145); Total Bilirubin 0.6 mg/dL (0.2-1.3); Total Protein 6.2 g/dL (6.3-8.2)
[2019-10-19 03:15] LABS: Glucose 694 mg/dL (74-99)
[2019-10-19 03:28] LABS: Glucose,Whole Blood 591 mg/dL (75-99)
[2019-10-19 04:03] LABS: Glucose,Whole Blood 481 mg/dL (75-99)
[2019-10-19 04:28] LABS: Glucose,Whole Blood 471 mg/dL (75-99)
[2019-10-19 04:55] LABS: Glucose,Whole Blood 450 mg/dL (75-99)
[2019-10-19 06:24] LABS: Glucose,Whole Blood 327 mg/dL (75-99)
[2019-10-19] MEDS: INSULIN ASPART (NovoLOG) 100 UNIT/ML VIAL SQ SCH ×4 (07:42→17:51)
[2019-10-19 12:13] LABS: Glucose,Whole Blood 338 mg/dL (75-99)
[2019-10-19] MEDS ORDERED: ACETAMINOPHEN TAB 325 MG TAB PO PRN (13:10)
[2019-10-19] MEDS ORDERED: POTASSIUM CHLORIDE ER 10 MEQ TAB.ER.PRT PO PRN (13:11)
[2019-10-19 14:07] VITALS: BMI 50.5
[2019-10-19 16:27] LABS: Glucose,Whole Blood 336 mg/dL (75-99)
[2019-10-19] MEDS: LITHIUM CARBONATE 300 MG CAP PO SCH ×2 (16:44→22:08)
[2019-10-19] MEDS: metFORMIN 850 MG TAB PO SCH (16:44)
[2019-10-19] MEDS: INSULIN DETEMIR (LEVEMIR) 100 UNIT/ML SYR SQ SCH (17:47)
[2019-10-19] MEDS: HYDROcodone/APAP 10-325MG 1 EACH TAB PO PRN (18:22)
--- NOTE | 2019-10-19 18:28 | P.HPIM ---
History of Present Illness This is a pleasant 48 years old male with past medical history of type 2 diabetes mellitus, Hyperlipidemia, hypertension, sleep apnea on CPAP/BiPAP, diabetic neuropathy, gouty arthritis and depression Patient presents because of uncontrolled blood glucose, he checked his sugar on 2 days and it was reading high without specific number, so he decided to come to the hospital. He denies any specific symptom, no chest pain or dyspnea, no abdominal pain, no nausea vomiting, no weakness or numbness or headache. At home he takes metformin 1000 twice a day, Levemir 80 units twice a day plus NovoLog insulin 30 units with meals, patient states he was compliant with therapy Vital signs stable. Labs reviewed showing unremarkable CBC. Sodium was 130, glucose 694 on admission, creatinine and other labs are unremarkable including unremarkable liver enzymes and negative troponin less than 0.012. Currently his sugar is more than 300 EKG showed normal sinus rhythm at [address]-T changes with right bundle branch block and QTC 474 Review of Systems CONSTITUTIONAL: No fever, no malaise, no fatigue. HEENT: No recent visual problems or hearing problems. Denied any sore throat. CARDIOVASCULAR: No orthopnea, PND, no palpitations, no syncope. PULMONARY: No shortness of breath, no cough, no hemoptysis. GASTROINTESTINAL: No diarrhea, no nausea, no vomiting, no abdominal pain. No rmoactive bowel sounds. NEUROLOGICAL: No headaches, no weakness, no numbness. HEMATOLOGICAL: Denies any bleeding or petechiae. GENITOURINARY: Denies any burning micturition, frequency, or urgency. MUSCULOSKELETAL/RHEUMATOLOGICAL: Denies any joint pain, swelling, or any muscle pain. ENDOCRINE: Denies any polyuria or polydipsia. Past Medical History Past Medical History: Diabetes Mellitus, Hyperlipidemia, Hypertension, Sleep Apnea/CPAP/BIPAP Additional Past Medical History / Comment(s): neuropathy,arthritis gout, depression. Crushing injury to left foot metacarpals repaired with plate and 16 screws in past broke lt foot(sx ), myron carpal tunnel. ( Cocaine free for 60 days 09/2019) History of Any Multi-Drug Resistant Organisms: None Reported Past Surgical History: Orthopedic Surgery Additional Past Surgical History / Comment(s): lasik eye sx ,left foot surgery. to reprair break-"has 2 plates and 16 screws" left groin boil cellulitis with excision and debriedment and NPWT performed by Dr. Estrella. Past Anesthesia/Blood Transfusion Reactions: No Reported Reaction Past Psychological History: Anxiety, Bipolar, Depression, PTSD Smoking Status: Never smoker Past Alcohol Use History: None Reported Additional Past Alcohol Use History / Comment(s): "haven't drank since 2018". Past Drug Use History: Marijuana Additional Drug Use History / Comment(s): crack cocaine. stated quit all drug use 2016 used crack cocaine today (day of admission 01-22-2019 - Past Family History Mother Family Medical History: Cancer, Diabetes Mellitus Father Family Medical History: Myocardial Infarction (ME) Additional Family Medical History / Comment(s): stroke Medications and Allergies Home Medications Medication Instructions Recorded Confirmed Type Atorvastatin [Lipitor] 20 mg PO DAILY tab 01/23/18 10/19/19 Rx allopurinoL [Zyloprim] 300 mg PO DAILY tab 01/23/18 10/19/19 Rx metFORMIN HCL 1,000 mg PO BID 01/22/19 10/19/19 History Bledsoe Carbonate 300 mg PO TID #42 cap 02/05/19 10/19/19 Rx Pantoprazole [Protonix] 40 mg PO AC-BRKFST #14 tablet. 02/05/19 10/19/19 Rx Acetaminophen Tab [Tylenol] 650 mg PO Q6HR PRN tab 04/01/19 10/19/19 Rx Insulin Aspart [NovoLOG Flexpen] See Protocol SQ AC-TID 04/01/19 10/19/19 History Empagliflozin/Linagliptin 1 tab PO DAILY 10/19/19 10/19/19 History [Glyxambi 25 mg-5 mg Tablet] Gabapentin [Neurontin] 400 mg PO TID PRN 10/19/19 10/19/19 History HYDROcodone/APAP 10-325MG [Lyman 1 tab PO QID 10/19/19 10/19/19 History 10-325] Insulin Detemir [Levemir Flextouch] 80 unit SQ BID 10/19/19 10/19/19 History Potassium Chloride ER [K-Dur 10] 10 meq PO DAILY PRN 10/19/19 10/19/19 History Vortioxetine Hydrobromide 10 mg PO HS 10/19/19 10/19/19 History [Trintellix] Allergies Allergy/AdvReac Type Severity Reaction Status Date / Time ibuprofen [From Motrin] Allergy Rash/Hives Verified 10/19/19 09:30 Physical Exam Vitals: Vital Signs Temp Pulse Pulse Resp BP BP Pulse Ox 10/19/19 14:23 97.9 F 81 16 123/72 93 L 10/19/19 08:53 98.1 F 68 16 144/89 95 10/19/19 08:45 16 10/19/19 06:50 97.9 F 71 16 147/92 94 L 10/19/19 06:35 98 F 83 19 123/90 97 10/19/19 05:01 83 19 137/99 97 10/19/19 04:05 83 19 141/96 97 10/19/19 02:25 98.2 F 86 20 120/85 97 10/19/19 00:57 98.4 F 78 20 138/89 98 Intake and Output 10/19/19 10/19/19 10/19/19 06:59 14:59 22:59 Other: # Voids 2 Weight 155.265 kg 155.265 kg -GENERAL: The patient is alert and oriented x3, not in any acute distress. Obese HEENT: Pupils are round and equally reacting to light. EOMI. No scleral icterus. No conjunctival pallor. Normocephalic, atraumatic. No pharyngeal erythema. No thyromegaly. CARDIOVASCULAR: S1 and S2 present. No murmurs, rubs, or gallops. PULMONARY: Chest is clear to auscultation, no wheezing or crackles. ABDOMEN: Soft, nontender, nondistended, normoactive bowel sounds. No palpable organomegaly. MUSCULOSKELETAL: No joint swelling or deformity. EXTREMITIES: No cyanosis, clubbing, or pedal edema. NEUROLOGICAL: Gross neurological examination did not reveal any focal deficits. SKIN: No rashes. No petechiae Results CBC & Chem 7: 10/19/19 01:46 10/19/19 01:46 Labs: Abnormal Lab Results - Last 24 Hours (Table) 10/19/19 10/19/19 10/19/19 Range/Units 01:11 01:46 01:46 MCHC 30.6 L (31.0-37.0) g/dL Sodium (137-145) mmol/L Creatinine (0.66-1.25) mg/dL Glucose (74-99) mg/dL POC Glucose (mg/dL) >600 H (75-99) mg/dL Creatine Kinase (55-170) U/L Total Protein (6.3-8.2) g/dL Albumin (3.5-5.0) g/dL Urine Glucose (UA) 4+ H (Negative) Ur Leukocyte Esterase Moderate H (Negative) Urine Mucus Rare H (None) /hpf 10/19/19 10/19/19 10/19/19 Range/Units 01:46 02:25 03:24 MCHC (31.0-37.0) g/dL Sodium 130 L (137-145) mmol/L Creatinine 0.61 L (0.66-1.25) mg/dL Glucose 694 H* (74-99) mg/dL POC Glucose (mg/dL) >600 H 591 H (75-99) mg/dL Creatine Kinase 45 L (55-170) U/L Total Protein 6.2 L (6.3-8.2) g/dL Albumin 3.3 L (3.5-5.0) g/dL Urine Glucose (UA) (Negative) Ur Leukocyte Esterase (Negative) Urine Mucus (None) /hpf 10/19/19 10/19/19 10/19/19 Range/Units 03:58 04:25 04:52 MCHC (31.0-37.0) g/dL Sodium (137-145) mmol/L Creatinine (0.66-1.25) mg/dL Glucose (74-99) mg/dL POC Glucose (mg/dL) 481 H 471 H 450 H (75-99) mg/dL Creatine Kinase (55-170) U/L Total Protein (6.3-8.2) g/dL Albumin (3.5-5.0) g/dL Urine Glucose (UA) (Negative) Ur Leukocyte Esterase (Negative) Urine Mucus (None) /hpf 10/19/19 10/19/19 10/19/19 Range/Units 06:22 12:12 16:26 MCHC (31.0-37.0) g/dL Sodium (137-145) mmol/L Creatinine (0.66-1.25) mg/dL Glucose (74-99) mg/dL POC Glucose (mg/dL) 327 H 338 H 336 H (75-99) mg/dL Creatine Kinase (55-170) U/L Total Protein (6.3-8.2) g/dL Albumin (3.5-5.0) g/dL Urine Glucose (UA) (Negative) Ur Leukocyte Esterase (Negative) Urine Mucus (None) /hpf Thrombosis Risk Factor Assmnt - Choose All That Apply Any of the Below Risk Factors Present?: Yes Each Factor Represents 1 point: Obesity (BMI >25), Swollen legs (current) Other Risk Factors: No Other congenital or acquired thrombophilia - If yes, enter type in comment: No Thrombosis Risk Factor Assessment Total Risk Factor Score: 2 Thrombosis Risk Factor Assessment Level: Low Risk Assessment and Plan Assessment: Type 2 diabetes mellitus with hyperglycemia Hyperlipidemia Hypertension Sleep apnea on CPAP/BiPAP Diabetic neuropathy History of gout History of depression, not an active issue Morbidly Obesity with BMI of 50 Plan: This is a pleasant 48 years old male who presents with uncontrolled hyperglycemia secondary to diabetes. We will increase his metformin to 850 3 times a day, increase his Levemir to 90 twice a day and start him back on NovoLog 30 units 3 times a day plus insulin sliding scale Labs and medication were reviewed.. Continue same treatment. Continue with symptomatic treatment. Resume home medication. Monitor lytes and vitals. DVT and GI prophylaxis. Further recommendations of the clinical course of the patient DVT prophylaxis: Subcutaneous heparin GI Prophylaxis: Pepcid
[2019-10-19 19:38] LABS: Glucose,Whole Blood 302 mg/dL (75-99)
[2019-10-19] MEDS: HEPARIN SODIUM,PORCINE 5,000 UNIT/ML 1 ML VIAL SQ SCH (20:24)
[2019-10-19] MEDS: FAMOTIDINE 20 MG/2 ML VIAL IV SCH (20:24)
[2019-10-19] MEDS: VORTIOXETINE HYDROBROMIDE 10 MG TABLET PO SCH (20:25)
[2019-10-19] MEDS ORDERED: INSULIN DETEMIR (LEVEMIR) 100 UNIT/ML SYR SQ SCH (21:00)
[2019-10-19 23:46] LABS: Hemoglobin A1C 13.8 % (4.0-6.0)
[2019-10-20 00:13] LABS: Glucose,Whole Blood 263 mg/dL (75-99)
[2019-10-20 06:03] LABS: Glucose,Whole Blood 240 mg/dL (75-99)
[2019-10-20] MEDS: INSULIN DETEMIR (LEVEMIR) 100 UNIT/ML SYR SQ SCH ×2 (06:04→17:42)
[2019-10-20] MEDS ORDERED: INSULIN DETEMIR (LEVEMIR) 100 UNIT/ML SYR SQ ONE ×2 (06:45→21:00)
[2019-10-20] MEDS: INSULIN ASPART (NovoLOG) 100 UNIT/ML VIAL SQ SCH ×4 (08:16→17:42)
[2019-10-20] MEDS: FAMOTIDINE 20 MG/2 ML VIAL IV SCH ×2 (08:16→21:04)
[2019-10-20] MEDS: HEPARIN SODIUM,PORCINE 5,000 UNIT/ML 1 ML VIAL SQ SCH ×2 (08:16→21:04)
[2019-10-20] MEDS: PANTOPRAZOLE 40 MG TABLET PO SCH (08:17)
[2019-10-20] MEDS: allopurinoL 300 MG TAB PO SCH (08:17)
[2019-10-20] MEDS: LITHIUM CARBONATE 300 MG CAP PO SCH ×3 (08:17→21:36)
[2019-10-20] MEDS: ATORVASTATIN 20 MG TAB PO SCH (08:17)
[2019-10-20] MEDS: metFORMIN 850 MG TAB PO SCH ×3 (08:17→17:42)
[2019-10-20] MEDS ORDERED: ONDANSETRON 4 MG/2 ML VIAL ONE (09:15)
--- NOTE | 2019-10-20 11:36 | XR ---
EXAMINATION TYPE: XR chest 1V DATE OF EXAM: 10/20/2019 COMPARISON: 01/22/2019 INDICATION: Short of breath TECHNIQUE: Single frontal view of the chest is obtained. FINDINGS: The heart size is normal. The pulmonary vasculature is normal. The lungs are clear. IMPRESSION: 1. No acute pulmonary process.
[2019-10-20 12:02] LABS: Glucose,Whole Blood 196 mg/dL (75-99)
[2019-10-20] MEDS: HYDROcodone/APAP 10-325MG 1 EACH TAB PO PRN ×2 (14:06→22:41)
[2019-10-20 17:02] LABS: Glucose,Whole Blood 174 mg/dL (75-99)
--- NOTE | 2019-10-20 20:30 | P.PN ---
Subjective This is a pleasant 48 years old male with past medical history of type 2 diabetes mellitus, Hyperlipidemia, hypertension, sleep apnea on CPAP/BiPAP, diabetic neuropathy, gouty arthritis and depression Patient presents because of uncontrolled blood glucose, he checked his sugar on 2 days and it was reading high without specific number, so he decided to come to the hospital. He denies any specific symptom, no chest pain or dyspnea, no abdominal pain, no nausea vomiting, no weakness or numbness or headache. At home he takes metformin 1000 twice a day, Levemir 80 units twice a day plus NovoLog insulin 30 units with meals, patient states he was compliant with therapy Vital signs stable. Labs reviewed showing unremarkable CBC. Sodium was 130, glucose 694 on admission, creatinine and other labs are unremarkable including unremarkable liver enzymes and negative troponin less than 0.012. Currently his sugar is more than 300 EKG showed normal sinus rhythm at [address]-T changes with right bundle branch block and QTC 474 10/20/2019 This morning patient had some nausea and did not well and he has some dyspnea, no chest pain or abdominal pain, no vomiting, no change in urine or bowel habits. No fever Hemodynamically stable, and labs were unremarkable. Serial troponins were negative. EKG showing no significant ST-T changes. D-dimer negative. Chest x- ray is negative We ordered Echocardiogram and ask for drawing in machine tender helper to evaluate the patient. Start the patient on aspirin His sugar is controlled after increasing Levemir from 80-95 twice a day and metformin 1000 twice to 850 mg 3 times a day, and decrease the short acting insulin from 30 units at home to 20 units with meals, probably because of his lowered appetite and nausea Also patient is counseled to follow up with fashion editor upon discharge and he agrees also counseled to referral for surgeon for possible gastrectomy given his morbid obesity with complications Review of Systems CONSTITUTIONAL: No fever, no malaise, no fatigue. HEENT: No recent visual problems or hearing problems. Denied any sore throat. CARDIOVASCULAR: No orthopnea, PND, no palpitations, no syncope. PULMONARY: No shortness of breath, no cough, no hemoptysis. GASTROINTESTINAL: No diarrhea, no nausea, no vomiting, no abdominal pain. Normoactive bowel sounds. NEUROLOGICAL: No headaches, no weakness, no numbness. HEMATOLOGICAL: Denies any bleeding or petechiae. GENITOURINARY: Denies any burning micturition, frequency, or urgency. MUSCULOSKELETAL/RHEUMATOLOGICAL: Denies any joint pain, swelling, or any muscle pain. ENDOCRINE: Denies any polyuria or polydipsia. Active Medications Generic Name Dose Route Start Last Admin Trade Name Freq PRN Reason Stop Dose Admin Acetaminophen 650 mg 10/19/19 13:10 Tylenol Tab PO Q6HR PRN Fever and/ or Mild Pain Hydrocodone Bitart/Acetaminophen 1 each 10/19/19 18:09 10/20/19 14:06 Hatch 10 PO 1 each QID PRN Administration MODERATE Pain Allopurinol 300 mg 10/20/19 09:00 10/20/19 08:17 Zyloprim PO 300 mg DAILY GILMA Administration Atorvastatin Calcium 20 mg 10/20/19 09:00 10/20/19 08:17 Lipitor PO 20 mg DAILY GILMA Administration Famotidine 20 mg 10/19/19 21:00 10/20/19 08:16 Pepcid IV 20 mg Q12HR GILMA Administration Heparin Sodium (Porcine) 5,000 unit 10/19/19 21:00 10/20/19 08:16 Heparin SQ 5,000 unit Q12HR GILMA Administration Insulin Aspart 15 unit 10/20/19 12:30 10/20/19 17:42 Novolog SQ 15 unit AC-TID GILMA Administration Insulin Detemir 90 unit 10/19/19 17:30 10/20/19 17:42 Levemir SQ 90 unit BID@0530,1730 GILMA Administration Veteran Carbonate 300 mg 10/19/19 16:00 10/20/19 17:42 Veteran Carbonate PO 300 mg TID GILMA Administration Metformin HCl 850 mg 10/19/19 17:30 10/20/19 17:42 Glucophage PO 850 mg AC-TID GILMA Administration Empagliflozin/ 1 tab 10/20/19 09:00 10/20/19 08:17 Linagliptin [ PO Not Given Glyxambi 25 Mg-5 Mg DAILY GILMA Tablet] 1 Tab Pantoprazole Sodium 40 mg 10/20/19 07:30 10/20/19 08:17 Protonix PO 40 mg AC-BRKFST GILMA Administration Potassium Chloride 10 meq 10/19/19 13:11 K-Dur 10 PO DAILY PRN CRAMPS Vortioxetine 10 mg 10/19/19 21:00 10/19/19 20:25 Trintellix PO 10 mg HS GILMA Administration Objective - Vital Signs Vital signs: Vital Signs Temp 97.7 F 10/20/19 08:20 Pulse 72 10/20/19 08:20 Resp 16 10/20/19 09:00 BP 190/95 10/20/19 08:20 Pulse Ox 96 10/20/19 08:20 Intake & Output 10/19/19 10/20/19 10/20/19 18:59 06:59 18:59 Intake Total 480 Balance 480 Weight 155.265 kg Intake: Oral 480 Other: # Voids 2 1 # Bowel Movements 1 - Exam -GENERAL: The patient is alert and oriented x3, not in any acute distress. Well morbidly obese HEENT: Pupils are round and equally reacting to light. EOMI. No scleral icterus. No conjunctival pallor. Normocephalic, atraumatic. No pharyngeal erythema. No thyromegaly. CARDIOVASCULAR: S1 and S2 present. No murmurs, rubs, or gallops. PULMONARY: Chest is clear to auscultation, no wheezing or crackles. ABDOMEN: Soft, nontender, nondistended, normoactive bowel sounds. No palpable organomegaly. MUSCULOSKELETAL: No joint swelling or deformity. EXTREMITIES: No cyanosis, clubbing, or pedal edema. NEUROLOGICAL: Gross neurological examination did not reveal any focal deficits. SKIN: No rashes. no petechiae. - Labs CBC & Chem 7: 10/19/19 01:46 10/19/19 01:46 Labs: Abnormal Lab Results - Last 24 Hours (Table) 10/19/19 10/19/19 10/19/19 Range/Units 01:46 16:26 19:36 POC Glucose (mg/dL) 336 H 302 H (75-99) mg/dL Hemoglobin A1c 13.8 H (4.0-6.0) % 10/20/19 10/20/19 10/20/19 Range/Units 00:12 06:02 12:00 POC Glucose (mg/dL) 263 H 240 H 196 H (75-99) mg/dL Hemoglobin A1c (4.0-6.0) % Assessment and Plan Assessment: Exertional dyspnea, rule out cardiac causes Type 2 diabetes mellitus with hyperglycemia Hyperlipidemia Hypertension Sleep apnea on CPAP/BiPAP Diabetic neuropathy History of gout History of depression, not an active issue Morbidly Obesity with BMI of 50 Plan: This is a pleasant 48 years old male who presents with uncontrolled hyperglycemia secondary to diabetes. We will increase his metformin to 850 3 times a day, increase his Levemir to 95 twice a day and start him back on NovoLog 30 units 3 times a day plus insulin sliding scale . Check echocardiogram and cardiology consult. Start aspirin. Labs and medication were reviewed.. Continue same treatment. Continue with symptomatic treatment. Resume home medication. Monitor lytes and vitals. DVT and GI prophylaxis. Further recommendations of the clinical course of the patient DVT prophylaxis: Subcutaneous heparin GI Prophylaxis: Pepcid
[2019-10-20 20:50] LABS: Glucose,Whole Blood 207 mg/dL (75-99)
[2019-10-20] MEDS: ASPIRIN 325 MG TAB PO SCH (21:04)
[2019-10-20] MEDS: VORTIOXETINE HYDROBROMIDE 10 MG TABLET PO SCH (21:04)
[2019-10-21 04:27] VITALS: PULSE 71
[2019-10-21 04:31] LABS: Glucose,Whole Blood 170 mg/dL (75-99)
[2019-10-21] MEDS ORDERED: INSULIN DETEMIR (LEVEMIR) 100 UNIT/ML SYR SQ SCH (05:30)
[2019-10-21 06:26] LABS: Glucose,Whole Blood 166 mg/dL (75-99)
[2019-10-21] MEDS: PANTOPRAZOLE 40 MG TABLET PO SCH (08:26)
[2019-10-21] MEDS: HYDROcodone/APAP 10-325MG 1 EACH TAB PO PRN (08:26)
[2019-10-21] MEDS: ASPIRIN 325 MG TAB PO SCH (08:26)
[2019-10-21] MEDS: metFORMIN 850 MG TAB PO SCH ×2 (08:26→12:30)
[2019-10-21] MEDS: LITHIUM CARBONATE 300 MG CAP PO SCH (08:26)
[2019-10-21] MEDS: FAMOTIDINE 20 MG/2 ML VIAL IV SCH (08:27)
[2019-10-21] MEDS: allopurinoL 300 MG TAB PO SCH (08:27)
[2019-10-21] MEDS: ATORVASTATIN 20 MG TAB PO SCH (08:27)
[2019-10-21] MEDS: HEPARIN SODIUM,PORCINE 5,000 UNIT/ML 1 ML VIAL SQ SCH (08:27)
[2019-10-21 09:58] VITALS: BP 167/80; RESP 12; TEMP 98.1
[2019-10-21] MEDS: INSULIN ASPART (NovoLOG) 100 UNIT/ML VIAL SQ SCH ×2 (10:29→12:29)
[2019-10-21] MEDS ORDERED: lisinopriL 10 MG TAB PO SCH (11:00)
--- NOTE | 2019-10-21 11:02 | ECHOF ---
Referral Reason:Rule out heart disease MEASUREMENTS -------- HEIGHT: 152.4 cm WEIGHT: 158.8 kg BP: 128/85 IVSd: 1.5 cm (0.6 - 1.1) LVIDd: 4.1 cm (3.9 - 5.3) LVPWd: 1.6 cm (0.6 - 1.1) EDV(Teich): 76 ml IVSs: 2.0 cm LVIDs: 2.7 cm LVPWs: 1.8 cm %IVS Thck: 29 % ESV(Teich): 28 ml EF(Teich): 63 % %FS: 34 % SV(Teich): 48 ml LA Diam: 4.0 cm (2.7 - 3.8) RVIDd: 3.5 cm (< 3.3) Ao Diam: 3.9 cm (2.0 - 3.7) AV Cusp: 1.4 cm (1.5 - 2.6) EPSS: 0.3 cm MV E Sam: 0.39 m/s MV DecT: 128 ms MV Dec [place]: 3.1 m/s MV A Sam: 0.50 m/s MV E/A Ratio: 0.79 MV PHT: 37 ms MV EF SLOPE: 104.87 mm/s (70 - 150) MV EXCURSION: 16.49 mm (> 18.000) FINDINGS -------- Sinus rhythm. Morbid Obesity This was a techncally difficult study with suboptimal views, , Lumason utilized for enhancement of images. The left ventricular size is normal. There is moderate concentric left ventricular hypertrophy. O verall left ventricular systolic function is low-normal with, an EF between 50 - 55 %. The right ventricle is mildly enlarged. The left atrial size is normal. The right atrial size is normal. 5.0mg OF Lumason UTLIZED: 2 OR MORE WALL SEGMENTS NOT VISUALIZED. There is mild aortic valve sclerosis. There is no evidence of aortic regurgitation. Mild mitral regurgitation is present. Unable to estimate RVSP due to inadequate TR jet spectral doppler profile. The pulmonic valve was not well visualized. Echo free space represents a pericardial fat pad. CONCLUSIONS -------- 1. The left ventricular size is normal. 2. There is moderate concentric left ventricular hypertrophy. 3. Overall left ventricular systolic function is low-normal with, an EF between 50 - 55 %. 4. The left atrial size is normal. 5. The right atrial size is normal. 6. 5.0mg OF Lumason UTLIZED: 2 OR MORE WALL SEGMENTS NOT VISUALIZED. 7. There is mild aortic valve sclerosis. 8. Mild mitral regurgitation is present. 9. Unable to estimate RVSP due to inadequate TR jet spectral doppler profile. 10. The pulmonic valve was not well visualized. 11. Echo free space represents a pericardial fat pad. ACTIVITIES COORDINATOR: Anastacia Tena RDCS
[2019-10-21 11:40] LABS: Glucose,Whole Blood 271 mg/dL (75-99)
[2019-10-21 12:46] LABS: Cholesterol 239 mg/dL (<200); HDL Cholesterol 29 mg/dL (40-60); LDL Cholesterol,Calculated 144 mg/dL (0-99); Triglycerides 332 mg/dL (<150)
--- NOTE | 2019-10-21 14:35 | P.CRDCN ---
History of Present Illness History of present illness: HISTORY OF PRESENTING ILLNESS This is a pleasant 78-year-old male past medical history significant for diabetes mellitus, hypertension, dyslipidemia, obstructive sleep apnea, history of illicit drug use and morbid obesity. Denies prior history of coronary artery disease and is not follow in the office with a nurse intern. We have been asked to see in consultation for shortness of breath. He states for the previous 2 weeks he's been experiencing shortness of breath around-the- clock. It is not triggered by exertion or activity however does worsen with exertion and activity. He denies associated chest pain or cough. He has never been diagnosed in the past with COPD or asthma. He is quite sedentary secondary to foot surgery with plate and screw placement. DIAGNOSTICS EKG reveals sinus mechanism with right bundle branch block heart rate of 87. Chest xray negative for an acute cardiopulmonary process. Laboratory reviewed, d-dimer 0.29, troponin negative 3, sodium 130, potassium 4.3, creatinine 0.61, magnesium 1.9 and CBC unremarkable. Current cardiac medications include atorvastatin 20 mg daily. REVIEW OF SYSTEMS At the time of my exam: CONSTITUTIONAL: Denies fever or chills. CARDIOVASCULAR: Complains of shortness of breath. Denies chest pain, orthopnea, PND or palpitations. RESPIRATORY: Denies cough. GASTROINTESTINAL: Denies abdominal pain, diarrhea, constipation, nausea or vomiting. MUSCULOSKELETAL: Denies myalgias. NEUROLOGIC: Denies numbness, tingling or weakness. ENDOCRINE: Denies fatigue, weight change, polydipsia or polyurina. GENITOURINARY: Denies burning, hematuria or urgency with micturation. HEMATOLOGIC: Denies history of anemia or bleeding. PHYSICAL EXAMINATION Blood pressure 167/80 heart rate 71 afebrile and maintaining oxygen saturation on room air. CONSTITUTIONAL: No apparent distress. Morbidly obese. HEENT: Head is normocephalic. Pupils are equal, round. Sclerae anicteric. Mucous membranes of the mouth are moist. No JVD. No carotid bruit. CHEST EXAMINATION: Lungs are clear to auscultation. No chest wall tenderness is noted on palpation or with deep breathing. HEART EXAMINATION: Regular rate and rhythm. S1, S2 heard. No murmurs, gallops or rub. ABDOMEN: Soft, nontender. Positive bowel sounds. EXTREMITIES: 2+ peripheral pulses, no lower extremity edema and no calf tenderness. NEUROLOGIC EXAMINATION: Patient is awake, alert and oriented x3. ASSESSMENT Shortness of breath Diabetes mellitus, uncontrolled Hyperglycemia Hypertension not currently on antihypertensive regimen Dyslipidemia Obstructive sleep apnea History of illicit drug use, specifically cocaine Morbid obesity, BMI 50 PLAN Initiate lisinopril 10 mg daily and increase atorvastatin to 40 mg daily. Obtain 2D echocardiogram and doppler study to assess cardiac structure and function. Check lipid panel and NTproBNP. Does not appear to be in acute heart failure. Shortness of breath could be secondary to hyperglycemia and generalized deconditioning. Recommend outpatient follow up and stress testing when diabetes is controlled. Thank you kindly for this consultation. Nurse Practitioner note has been reviewed, I agree with a documented findings and plan of care. Patient was seen and examined. Past Medical History Past Medical History: Diabetes Mellitus, Hyperlipidemia, Hypertension, Sleep Apnea/CPAP/BIPAP Additional Past Medical History / Comment(s): neuropathy,arthritis gout, depression. Crushing injury to left foot metacarpals repaired with plate and 16 screws in past broke lt foot(sx ), myron carpal tunnel. ( Cocaine free for 60 days 09/2019) History of Any Multi-Drug Resistant Organisms: None Reported Past Surgical History: Orthopedic Surgery Additional Past Surgical History / Comment(s): lasik eye sx ,left foot surgery. to reprair break-"has 2 plates and 16 screws" left groin boil cellulitis with excision and debriedment and NPWT performed by Dr. Estrella. Past Anesthesia/Blood Transfusion Reactions: No Reported Reaction Past Psychological History: Anxiety, Bipolar, Depression, PTSD Smoking Status: Never smoker Past Alcohol Use History: None Reported Additional Past Alcohol Use History / Comment(s): "haven't drank since New 2018". Past Drug Use History: Marijuana Additional Drug Use History / Comment(s): crack cocaine. stated quit all drug use 2016 used crack cocaine today (day of admission 01-22-2019 - Past Family History Mother Family Medical History: Cancer, Diabetes Mellitus Father Family Medical History: Myocardial Infarction ([place]) Additional Family Medical History / Comment(s): stroke Medications and Allergies Home Medications Medication Instructions Recorded Confirmed Type allopurinoL [Zyloprim] 300 mg PO DAILY tab 01/23/18 10/19/19 Rx [place] Carbonate 300 mg PO TID #42 cap 02/05/19 10/19/19 Rx Pantoprazole [Protonix] 40 mg PO AC-BRKFST #14 tablet. 02/05/19 10/19/19 Rx Acetaminophen Tab [Tylenol] 650 mg PO Q6HR PRN tab 04/01/19 10/19/19 Rx Insulin Aspart [NovoLOG Flexpen] See Protocol SQ AC-TID 04/01/19 10/19/19 History Empagliflozin/Linagliptin 1 tab PO DAILY 10/19/19 10/19/19 History [Glyxambi 25 mg-5 mg Tablet] HYDROcodone/APAP 10-325MG [[place] 1 tab PO QID 10/19/19 10/19/19 History 10-325] Potassium Chloride ER [K-Dur 10] 10 meq PO DAILY PRN 10/19/19 10/19/19 History Vortioxetine Hydrobromide 10 mg PO HS 10/19/19 10/19/19 History [Trintellix] Aspirin 81 mg PO DAILY #30 chew 10/21/19 Rx Atorvastatin [Lipitor] 40 mg PO DAILY #30 tab 10/21/19 Rx Famotidine [Pepcid] 20 mg PO BID 10 Days #20 tablet 10/21/19 Rx INSULIN ASPART (NovoLOG) [NovoLOG 15 unit SQ AC-TID 30 Days #1 vial 10/21/19 Rx (formulary)] Insulin Detemir (Levemir) [Levemir] 95 unit SQ BID@0530,1730 30 Days 10/21/19 Rx #1 vial lisinopriL [Zestril] 10 mg PO DAILY #30 tab 10/21/19 Rx metFORMIN HCL [Glucophage] 850 mg PO AC-TID #90 tab 10/21/19 Rx Allergies Allergy/AdvReac Type Severity Reaction Status Date / Time ibuprofen [From Motrin] Allergy Rash/Hives Verified 10/19/19 09:30 Physical Exam Vitals: Vital Signs Temp Pulse Resp BP Pulse Ox 10/21/19 09:00 98.1 F 71 12 167/80 96 10/21/19 03:06 97.6 F 71 16 128/85 97 10/20/19 21:51 98.1 F 89 18 135/89 98 10/20/19 14:40 16 10/20/19 14:09 97.9 F 74 16 153/98 97 08/30/20 11:00 146/83 Intake and Output 10/20/19 10/21/19 10/21/19 22:59 06:59 14:59 Intake Total 590 Balance 590 Intake: Oral 590 Results 10/19/19 01:46 10/19/19 01:46 Cardiac Enzymes 10/20/19 Range/Units 14:11 Troponin I <0.012 (0.000-0.034) ng/mL Current Medications Generic Name Dose Route Start Last Admin Trade Name Freq PRN Reason Stop Dose Admin Acetaminophen 650 mg 10/19/19 13:10 Tylenol Tab PO Q6HR PRN Fever and/ or Mild Pain Hydrocodone Bitart/Acetaminophen 1 each 10/19/19 18:09 10/21/19 08:26 [place] 10 PO 1 each QID PRN Administration MODERATE Pain Allopurinol 300 mg 10/20/19 09:00 10/21/19 08:27 Zyloprim PO 300 mg DAILY GILMA Administration Aspirin 325 mg 10/20/19 20:30 10/21/19 08:26 Aspirin PO 325 mg DAILY GILMA Administration Atorvastatin Calcium 20 mg 10/20/19 09:00 10/21/19 08:27 Lipitor PO 20 mg DAILY GILMA Administration Famotidine 20 mg 10/19/19 21:00 10/21/19 08:27 Pepcid IV 20 mg Q12HR GILMA Administration Heparin Sodium (Porcine) 5,000 unit 10/19/19 21:00 10/21/19 08:27 Heparin SQ 5,000 unit Q12HR GILMA Administration Insulin Aspart 15 unit 10/20/19 12:30 10/21/19 10:29 Novolog SQ 15 unit AC-TID GILMA Administration Insulin Detemir 95 unit 10/21/19 05:30 10/21/19 05:53 Levemir SQ 95 unit BID@2730,1730 GILMA Administration [place] Carbonate 300 mg 10/19/19 16:00 10/21/19 08:26 [place] Carbonate PO 300 mg TID GILMA Administration Metformin HCl 850 mg 10/19/19 17:30 10/21/19 08:26 Glucophage PO 850 mg AC-TID GILMA Administration Empagliflozin/ 1 tab 10/20/19 09:00 10/21/19 10:29 Linagliptin [ PO Not Given Glyxambi 25 Mg-5 Mg DAILY GILMA Tablet] 1 Tab Pantoprazole Sodium 40 mg 10/20/19 07:30 10/21/19 08:26 Protonix PO 40 mg AC-BRKFST GILMA Administration Potassium Chloride 10 meq 10/19/19 13:11 K-Dur 10 PO DAILY PRN CRAMPS Vortioxetine 10 mg 10/19/19 21:00 10/20/19 21:04 Trintellix PO 10 mg HS GILMA Administration Intake and Output 10/20/19 10/21/19 10/21/19 22:59 06:59 14:59 Intake Total 590 Balance 590 Intake: Oral 590 10/19/19 01:46 10/19/19 01:46
--- NOTE | 2019-10-21 19:07 | P.DS ---
Providers Date of admission: 10/19/19 02:57 Attending physician: Dillon Magana Consults: 10/20/19 12:31 Consult Physician Urgent Consulting Provider: Todd Herring Consult Reason/Comments: sob and risk factors Do you want consulting provider notified?: Yes Primary care physician: Rachana Harper [facility] Course: Diagnoses: Exertional dyspnea, rule out cardiac causes Type 2 diabetes mellitus with hyperglycemia Hyperlipidemia Hypertension Sleep apnea on CPAP/BiPAP Diabetic neuropathy History of gout History of depression, not an active issue Morbidly Obesity with BMI of 50 Hospital course: This is a pleasant 48 years old male with past medical history of type 2 diabetes mellitus, Hyperlipidemia, hypertension, sleep apnea on CPAP/BiPAP, diabetic neuropathy, gouty arthritis and depression/bipolar. Patient presents because of uncontrolled blood glucose, he checked his sugar on 2 days and it was reading high without specific number, so he decided to come to the hospital. At home he takes metformin 1000 twice a day, Levemir 80 units twice a day plus NovoLog insulin 30 units with meals, patient states he was compliant with therapy. glucose 694 on admission. His Levemir was increased to 95 units twice a day and metformin 03/30/1951 3 times a day while lowered his short-acting insulin to 15 units with meals, his sugar got controlled And it was reading 170, 166, 271 on the day of discharge. His hemoglobin A1c was 13.8% Also patient was complaining from mild dyspnea especially with exertion, chest x-ray was unremarkable, d-dimer was negative at 0.09, he was breathing quietly at 12-60 breaths per minute and was saturating 96% on room air. Chest x-ray was unremarkable. Serial troponins and EKG were unremarkable as well, coffee taster evaluated the patient, echocardiogram showed ejection fraction is normal 50-55%, patient has no other complaints, no chest pain or palpitation or dizziness or abdominal pain. Eventually patient remains stable on cardiology cleared him for discharge with recommendation for outpatient stress test. Patient was started on lisinopril 10 mg, aspirin, higher dose of Lipitor as well. Patient feels well and he agrees to be discharged today Patient was cleared for discharge by cardiology team Problems and management plan were discussed with the patient and he verbalized understanding and acceptance Patient was found stable and can be discharged home however he needs follow-up as an outpatient. Patient was instructed to follow up with PCP w Dr. Jenelle pickard one week and patient agrees with his appointment on 10/22 status with follow-up, patient also was instructed to follow up with subway guard Dr. Franz and surgery Dr. Barker for possible gastric reduction surgery for his morbid obesity and he agrees with the appointments made for him on 11/03. Also patient was instructed to follow up with Dr. Quintanilla in 2 weeks and he agrees to call and make appointment, as patient may need for stress test as an outpatient. And there was possible interaction with lisinopril and [place] which she takes for bipolar, I explained to the patient the symptoms and signs of [place] toxicity and instructed him to come to emergency room and call 911 if he develops any of them. Also I discussed the case with his PCP Dr. Almanzar including the recommendation for stress test, checking [place] level and he kindly took note of this Gen: patient is a AAOx3, no distress CVS: S1-S2, RRR, no murmur Lungs: B/L CTA, no wheezing Abdomen: soft, no distention, no tenderness, positive bowel sounds Extremity: no leg edema or induration Time spent more than 35 minutes Patient Condition at Discharge: Fair Plan - Discharge Summary Discharge Rx Participant: No New Discharge Prescriptions: New Aspirin 81 mg PO DAILY #30 chew metFORMIN HCL [Glucophage] 850 mg PO AC-TID #90 tab Insulin Detemir (Levemir) [Levemir] 95 unit SQ BID@0530,1730 30 Days #1 vial Atorvastatin [Lipitor] 40 mg PO DAILY #30 tab INSULIN ASPART (NovoLOG) [NovoLOG (formulary)] 15 unit SQ AC-TID 30 Days #1 vial Famotidine [Pepcid] 20 mg PO BID 10 Days #20 tablet lisinopriL [Zestril] 10 mg PO DAILY #30 tab Continue allopurinoL [Zyloprim] 300 mg PO DAILY tab [place] Carbonate 300 mg PO TID #42 cap Pantoprazole [Protonix] 40 mg PO AC-BRKFST #14 tablet. Acetaminophen Tab [Tylenol] 650 mg PO Q6HR PRN tab PRN Reason: Fever And/ Or Pain Insulin Aspart [NovoLOG Flexpen] See Protocol SQ AC-TID Empagliflozin/Linagliptin [Glyxambi 25 mg-5 mg Tablet] 1 tab PO DAILY HYDROcodone/APAP 10-325MG [[place] 10-325] 1 tab PO QID Potassium Chloride ER [K-Dur 10] 10 meq PO DAILY PRN PRN Reason: CRAMPS Vortioxetine Hydrobromide [Trintellix] 10 mg PO HS Discontinued Atorvastatin [Lipitor] 20 mg PO DAILY tab metFORMIN HCL 1,000 mg PO BID Gabapentin [Neurontin] 400 mg PO TID PRN PRN Reason: Pain Insulin Detemir [Levemir Flextouch] 80 unit SQ BID Discharge Medication List allopurinoL [Zyloprim] 300 mg PO DAILY tab 01/23/18 [Rx] [place] Carbonate 300 mg PO TID #42 cap 02/05/19 [Rx] Pantoprazole [Protonix] 40 mg PO AC-BRKFST #14 tablet. 02/05/19 [Rx] Acetaminophen Tab [Tylenol] 650 mg PO Q6HR PRN tab 04/01/19 [Rx] Insulin Aspart [NovoLOG Flexpen] See Protocol SQ AC-TID 04/01/19 [History] Empagliflozin/Linagliptin [Glyxambi 25 mg-5 mg Tablet] 1 tab PO DAILY 10/19/19 [History] HYDROcodone/APAP 10-325MG [[place] 10-325] 1 tab PO QID 10/19/19 [History] Potassium Chloride ER [K-Dur 10] 10 meq PO DAILY PRN 10/19/19 [History] Vortioxetine Hydrobromide [Trintellix] 10 mg PO HS 10/19/19 [History] Aspirin 81 mg PO DAILY #30 chew 10/21/19 [Rx] Atorvastatin [Lipitor] 40 mg PO DAILY #30 tab 10/21/19 [Rx] Famotidine [Pepcid] 20 mg PO BID 10 Days #20 tablet 10/21/19 [Rx] INSULIN ASPART (NovoLOG) [NovoLOG (formulary)] 15 unit SQ AC-TID 30 Days #1 vial 10/21/19 [Rx] Insulin Detemir (Levemir) [Levemir] 95 unit SQ BID@0530,1730 30 Days #1 vial 10/21/19 [Rx] lisinopriL [Zestril] 10 mg PO DAILY #30 tab 10/21/19 [Rx] metFORMIN HCL [Glucophage] 850 mg PO AC-TID #90 tab 10/21/19 [Rx] Follow up Appointment(s)/Referral(s): Meredith Reich MD [Primary Care Provider] - 10/23/19 9:40 am Franc Brandt MD [REFERRING] - 10 Days (Surgical Asst) Robert Quintanilla DO [STAFF PHYSICIAN] - 2 Weeks (coffee taster ) Arabella Barker DO [Doctor of Osteopathic Medicine] - 11/04/19 9:30 am (General surgeon for possible gastrectomy) Activity/Diet/Wound Care/Special Instructions: Low carbohydrate diabetic diet, 18,000 kcal per day Activity is limited till you see your doctor [facility] will call you with an appointment. Spoke with Dr. Brandt (endocrinology) office, they request a referral from your primary care provider. Discharge Disposition: HOME SELF-CARE
[2019-10-21] MEDS ORDERED: FAMOTIDINE 20 MG TAB PO SCH (21:00)
[2019-10-22] MEDS ORDERED: ASPIRIN 81 MG PO SCH (09:00)
[2019-10-22] MEDS ORDERED: ATORVASTATIN 40 MG TAB PO SCH (09:00)
== END 2019-10-21 15:30 | disposition home or self-care (01) ==
LOC: EC 00:46 → 1SOBS 02:57
PROVIDERS: ADMIT Hospitalist; ATTEND Hospitalist
DX: E11.65 Type 2 diabetes mellitus with hyperglycemia (principal); R06.00 Dyspnea, unspecified; E78.5 Hyperlipidemia, unspecified; I10 Essential (primary) hypertension; I45.10 Unspecified right bundle-branch block; G47.33 Obstructive sleep apnea (adult) (pediatric); Z99.89 Dependence on other enabling machines and devices; E11.40 Type 2 diabetes mellitus with diabetic neuropathy, unspecified; M10.9 Gout, unspecified; E66.01 Morbid (severe) obesity due to excess calories; Z68.43 Body mass index [BMI] 50.0-59.9, adult; Z98.890 Other specified postprocedural states; F41.9 Anxiety disorder, unspecified; F31.9 Bipolar disorder, unspecified; F43.10 Post-traumatic stress disorder, unspecified; Z80.9 Family history of malignant neoplasm, unspecified; Z83.3 Family history of diabetes mellitus; Z82.49 Family history of ischemic heart disease and other diseases of the circulatory system; Z82.3 Family history of stroke; Z79.4 Long term (current) use of insulin; Z79.899 Other long term (current) drug therapy; Z79.82 Long term (current) use of aspirin; Z88.6 Allergy status to analgesic agent
CPT/HCPCS: 93005 ×2; 96361 ×3; 96372 ×3; 96374; 96376 ×2; 36415; 85379; 83880; 80061; 80053; 82550; 82009; 83735; 84100; 84484 ×2; 85025; 81001; 83036; 71045; G0378 ×3; C8929; J1644 ×3; J2405; Q9950; 93306

== ENCOUNTER 2020-01-27 19:49 | Emergency (ER) | payer MEDICARE, OTHER ==
[2020-01-27 19:54] VITALS: RESP 18
[2020-01-27] MEDS ORDERED: ONDANSETRON 4 MG/2 ML VIAL IVP STA (20:04)
[2020-01-27] MEDS ORDERED: MORPHINE SULFATE 4 MG/ML SYRINGE IV STA (20:04)
[2020-01-27] MEDS ORDERED: SODIUM CHLORIDE 0.9% 1,000 ML IV STA (20:04)
[2020-01-27] MEDS ORDERED: FAMOTIDINE 20 MG/2 ML VIAL IV STA (20:13)
[2020-01-27] MEDS ORDERED: HYDROmorphone 0.5 MG/0.5 ML SYRINGE IVP STA (20:13)
--- NOTE | 2020-01-27 20:14 | ED ---
General Adult HPI - General Chief complaint: Abdominal Pain Stated complaint: Vomiting Time Seen by Provider: 01/27/20 19:55 Source: patient, RN notes reviewed Mode of arrival: ambulatory - History of Present Illness Initial comments: 49-year-old male with a past medical history of diabetes, hyperlipidemia, hypertension presents to the emergency room for chief complaint of vomiting. Patient reports he has been vomiting on and off for [address] did have a break for 2 days however it has since returned. States he has been vomiting all day not able to keep down fluids. He does admit to mild epigastric and right upper quadrant pain. Patient is unsure what makes this pain better or worse. Patient denies fevers or chills. Patient denies any previous abdominal surgeries. - Related Data Home Medications Medication Instructions Recorded Confirmed Insulin Aspart [NovoLOG Flexpen] 40 unit SQ AC-TID 04/01/19 01/27/20 HYDROcodone/APAP 10-325MG [[place] 1 tab PO QID PRN 10/19/19 01/27/20 10-325] Atorvastatin Calcium [Lipitor] 20 mg PO DAILY 01/27/20 01/27/20 DULoxetine HCL [Cymbalta] 30 mg PO BID 01/27/20 01/27/20 Gabapentin [Neurontin] 100 mg PO TID 01/27/20 01/27/20 Insulin Detemir (Levemir) [Levemir] 80 unit SQ QAM 01/27/20 01/27/20 Insulin Detemir [Levemir Flextouch] 15 units SQ HS 01/27/20 01/27/20 Semaglutide [Rybelsus] 7 mg PO DAILY 01/27/20 01/27/20 buPROPion XL [Wellbutrin Xl] 300 mg PO DAILY 01/27/20 01/27/20 metFORMIN HCL 1,000 mg PO BID 01/27/20 01/27/20 Previous Rx's Medication Instructions Recorded allopurinoL [Zyloprim] 300 mg PO DAILY tab 01/23/18 Pantoprazole [Protonix] 40 mg PO AC-BRKFST #14 tablet. 02/05/19 Acetaminophen Tab [Tylenol] 650 mg PO Q6HR PRN tab 04/01/19 lisinopriL [Zestril] 10 mg PO DAILY #30 tab 10/21/19 Azithromycin [Zithromax Z-pack (6 250 mg PO DIRECTED #6 tab 01/27/20 tabs)] Ondansetron [Zofran ODT] 4 mg PO Q8HR PRN #15 tab 01/27/20 Allergies Allergy/AdvReac Type Severity Reaction Status Date / Time ibuprofen [From Motrin] Allergy Rash/Hives Verified 01/27/20 21:20 Review of Systems ROS Statement: Those systems with pertinent positive or pertinent negative responses have been documented in the HPI. ROS Other: All systems not noted in ROS Statement are negative. Past Medical History Past Medical History: Diabetes Mellitus, Hyperlipidemia, Hypertension, Sleep Apnea/CPAP/BIPAP Additional Past Medical History / Comment(s): neuropathy,arthritis gout, depression. Crushing injury to left foot metacarpals repaired with plate and 16 screws in past broke lt foot(sx ), myron carpal tunnel. ( Cocaine free for 60 days 09/2019) History of Any Multi-Drug Resistant Organisms: None Reported Past Surgical History: Orthopedic Surgery Additional Past Surgical History / Comment(s): lasik eye sx ,left foot surgery. to reprair break-"has 2 plates and 16 screws" left groin boil cellulitis with excision and debriedment and NPWT performed by Dr. Estrella. Past Anesthesia/Blood Transfusion Reactions: No Reported Reaction Past Psychological History: Anxiety, Bipolar, Depression, PTSD Smoking Status: Never smoker Past Alcohol Use History: None Reported Past Drug Use History: Marijuana - Past Family History Mother Family Medical History: Cancer, Diabetes Mellitus Father Family Medical History: Myocardial Infarction ([place]) Additional Family Medical History / Comment(s): stroke General Exam General appearance: alert, in no apparent distress Head exam: Present: atraumatic, normocephalic, normal inspection Eye exam: Present: normal appearance, PERRL, EOMI. Absent: scleral icterus, conjunctival injection, periorbital swelling ENT exam: Present: normal exam, mucous membranes moist Neck exam: Present: normal inspection, full ROM. Absent: tenderness, meningismus, lymphadenopathy Respiratory exam: Present: normal lung sounds bilaterally. Absent: respiratory distress, wheezes, rales, rhonchi, stridor Cardiovascular Exam: Present: regular rate, normal rhythm, normal heart sounds. Absent: systolic murmur, diastolic murmur, rubs, gallop, clicks GI/Abdominal exam: Present: soft, tenderness (Mild right upper quadrant abdominal tenderness.), normal bowel sounds. Absent: distended, guarding, rebound, rigid Course Vital Signs 01/27/20 01/27/20 01/27/20 19:51 21:54 22:27 Temperature 98.3 F Pulse Rate 85 77 Respiratory 18 18 Rate Blood Pressure 162/99 165/101 158/94 O2 Sat by Pulse 97 97 Oximetry Medical Decision Making - Medical Decision Making Patient was given Zofran and had a negative ultrasound and x-ray but continued to vomit. He still had right upper quadrant pain. Computed tomography scan is ordered at that point. Vitals are stable. CBC does have a mild left shift which is likely related to vomiting. CMP is unremarkable. Amylase and lipase are normal. Urinalysis does show 1+ ketones which is likely related to dehydration, patient was given fluids. Coronavirus is negative. Ultrasound was obtained and there is no gallstones or dilated ducts. CT abdomen and pelvis with contrast shows colonic diverticulosis without diverticulitis. There is a mild left lower lobe pneumonia which patient will be treated for, however denying cough. He is also a fat density right adrenal mass consistent with myolipoma which patient was educated about. At this time patient is tolerating orals. He has not vomited after second dose of antiemetics. Patient will be discharged home to follow up with primary care with Zofran and azithromycin. He will return here for any worsening symptoms. Of note, patient does already take Protonix which she will continue. - Lab Data Result diagrams: 01/27/20 20:15 01/27/20 20:15 Lab Results 01/27/20 01/27/20 01/27/20 Range/Units 20:15 20:15 20:15 WBC 11.1 H (3.8-10.6) k/uL RBC 5.40 (4.30-5.90) m/uL Hgb 16.2 (13.0-17.5) gm/dL Hct 48.5 (39.0-53.0) % MCV 89.8 (80.0-100.0) fL MCH 30.0 (25.0-35.0) pg MCHC 33.3 (31.0-37.0) g/dL RDW 13.2 (11.5-15.5) % Plt Count 249 (150-450) k/uL MPV 8.3 Neutrophils % 77 % Lymphocytes % 16 % Monocytes % 5 % Eosinophils % 1 % Basophils % 1 % Neutrophils # 8.5 H (1.3-7.7) k/uL Lymphocytes # 1.7 (1.0-4.8) k/uL Monocytes # 0.5 (0-1.0) k/uL Eosinophils # 0.1 (0-0.7) k/uL Basophils # 0.1 (0-0.2) k/uL Sodium 138 (137-145) mmol/L Potassium 4.2 (3.5-5.1) mmol/L Chloride 103 (98-107) mmol/L Carbon Dioxide 30 (22-30) mmol/L Anion Gap 5 mmol/L BUN 13 (9-20) mg/dL Creatinine 0.53 L (0.66-1.25) mg/dL Est GFR (CKD-EPI)AfAm >90 (>60 ml/min/1.73 sqM) Est GFR (CKD-EPI)NonAf >90 (>60 ml/min/1.73 sqM) Glucose 104 H (74-99) mg/dL Plasma Lactic Acid Nicho 1.3 (0.7-2.0) mmol/L Calcium 9.0 (8.4-10.2) mg/dL Total Bilirubin 0.7 (0.2-1.3) mg/dL AST 42 (17-59) U/L ALT 25 (4-49) U/L Alkaline Phosphatase 60 (38-126) U/L Total Protein 6.6 (6.3-8.2) g/dL Albumin 3.2 L (3.5-5.0) g/dL Amylase 35 (30-110) U/L Lipase 82 (23-300) U/L Urine Color Urine Appearance (Clear) Urine pH (5.0-8.0) Ur Specific [place] (1.001-1.035) Urine Protein (Negative) Urine Glucose (UA) (Negative) Urine Ketones (Negative) Urine Blood (Negative) Urine Nitrite (Negative) Urine Bilirubin (Negative) Urine Urobilinogen (<2.0) mg/dL Ur Leukocyte Esterase (Negative) Urine RBC (0-5) /hpf Urine WBC (0-5) /hpf Ur Squamous Epith Cells (0-4) /hpf Urine Mucus (None) /hpf Coronavirus (PCR) (Not Detectd) 01/27/20 01/27/20 Range/Units 21:20 21:50 WBC (3.8-10.6) k/uL RBC (4.30-5.90) m/uL Hgb (13.0-17.5) gm/dL Hct (39.0-53.0) % MCV (80.0-100.0) fL MCH (25.0-35.0) pg MCHC (31.0-37.0) g/dL RDW (11.5-15.5) % Plt Count (150-450) k/uL MPV Neutrophils % % Lymphocytes % % Monocytes % % Eosinophils % % Basophils % % Neutrophils # (1.3-7.7) k/uL Lymphocytes # (1.0-4.8) k/uL Monocytes # (0-1.0) k/uL Eosinophils # (0-0.7) k/uL Basophils # (0-0.2) k/uL Sodium (137-145) mmol/L Potassium (3.5-5.1) mmol/L Chloride (98-107) mmol/L Carbon Dioxide (22-30) mmol/L Anion Gap mmol/L BUN (9-20) mg/dL Creatinine (0.66-1.25) mg/dL Est GFR (CKD-EPI)AfAm (>60 ml/min/1.73 sqM) Est GFR (CKD-EPI)NonAf (>60 ml/min/1.73 sqM) Glucose (74-99) mg/dL Plasma Lactic Acid Nicho (0.7-2.0) mmol/L Calcium (8.4-10.2) mg/dL Total Bilirubin (0.2-1.3) mg/dL AST (17-59) U/L ALT (4-49) U/L Alkaline Phosphatase (38-126) U/L Total Protein (6.3-8.2) g/dL Albumin (3.5-5.0) g/dL Amylase (30-110) U/L Lipase (23-300) U/L Urine Color Yellow Urine Appearance Clear (Clear) Urine pH 6.0 (5.0-8.0) Ur Specific [place] 1.023 (1.001-1.035) Urine Protein Negative (Negative) Urine Glucose (UA) Negative (Negative) Urine Ketones 1+ H (Negative) Urine Blood Negative (Negative) Urine Nitrite Negative (Negative) Urine Bilirubin Negative (Negative) Urine Urobilinogen 4.0 (<2.0) mg/dL Ur Leukocyte Esterase Trace H (Negative) Urine RBC <1 (0-5) /hpf Urine WBC 2 (0-5) /hpf Ur Squamous Epith Cells <1 (0-4) /hpf Urine Mucus Few H (None) /hpf Coronavirus (PCR) Not Detected (Not Detectd) Disposition Clinical Impression: Nausea and vomiting Disposition: HOME SELF-CARE Condition: Good Instructions (If sedation given, give patient instructions): Acute Nausea and Vomiting (ED) Additional Instructions: Please follow up with primary care doctor tomorrow. Take medications as directed. Return to the emergency room for any worsening symptoms. Prescriptions: Azithromycin [Zithromax Z-pack (6 tabs)] 250 mg PO DIRECTED #6 tab Ondansetron [Zofran ODT] 4 mg PO Q8HR PRN #15 tab PRN Reason: Nausea Is patient prescribed a controlled substance at d/c from ED?: No Referrals: Meredith Reich MD [Primary Care Provider] - 1-2 days Time of Disposition: 23:21
[2020-01-27 20:31] LABS: Basophils # (A) 0.1 k/uL (0-0.2); Basophils % (A) 1 %; Eosinophils # (A) 0.1 k/uL (0-0.7); Eosinophils % (A) 1 %; HCT 48.5 % (39.0-53.0); HGB 16.2 gm/dL (13.0-17.5); Lymphocytes # (A) 1.7 k/uL (1.0-4.8); Lymphocytes % (A) 16 %; MCHC 33.3 g/dL (31.0-37.0); MCV 89.8 fL (80.0-100.0); Mean Platelet Volume 8.3; Monocytes # (A) 0.5 k/uL (0-1.0); Monocytes % (A) 5 %; Neutrophils # (A) 8.5 k/uL (1.3-7.7); Neutrophils % (A) 77 %; Platelet Count 249 k/uL (150-450); RDW 13.2 % (11.5-15.5); WBC 11.1 k/uL (3.8-10.6)
[2020-01-27 20:41] LABS: ALT 25 U/L (4-49); AST 42 U/L (17-59); African American GFR (CKD) >90 (>60 ml/min/1.73 sqM); Albumin 3.2 g/dL (3.5-5.0); Alkaline Phosphatase 60 U/L (38-126); Amylase 35 U/L (30-110); Anion Gap 5 mmol/L; Blood Urea Nitrogen 13 mg/dL (9-20); Carbon Dioxide 30 mmol/L (22-30); Chloride 103 mmol/L (98-107); Glucose 104 mg/dL (74-99); Lipase 82 U/L (23-300); Non-African American GFR(CKD) >90 (>60 ml/min/1.73 sqM); Potassium 4.2 mmol/L (3.5-5.1); Sodium 138 mmol/L (137-145); Total Bilirubin 0.7 mg/dL (0.2-1.3); Total Protein 6.6 g/dL (6.3-8.2)
--- NOTE | 2020-01-27 21:34 | US ---
EXAMINATION TYPE: US abdomen limited DATE OF EXAM: 01/27/2020 COMPARISON: US CLINICAL HISTORY: ruq. Abdominal pain x 5 days. EXAM MEASUREMENTS: Liver Length: 20.43 cm Gallbladder Wall: 0.23 cm CBD: 0.46 cm Right Kidney: 13.4 x 6.3 x 5.8 cm Difficult and limited exam due to patient body habitus. Patient 320 pounds. Pancreas: Limited due to gas. Liver: Appears coarse and enlarged. Hypoechoic area seen near daniela hepatis suggestive of focal fatt y sparing measurin.3 x 2.5 x 3.3 cm. Increased attenuation. Limited. Gallbladder: Appears distended measuring 11.2 cm in length and 4.3 cm in width. Evidence for sonographic Cardoza's sign: Patient feels pain in the RUQ. CBD: Portion seen appear wnl. Right Kidney: Appears enlarged. Appears to have a lobulated contour. IMPRESSION: There is evidence of fatty infiltration of the liver. No gallstones or dilated ducts.
[2020-01-27 21:36] LABS: Appearance,Urine Clear (Clear); Bilirubin,Urine Negative (Negative); Blood,Urine Negative (Negative); Color,Urine Yellow; Glucose,Urine (UA) Negative (Negative); Ketones,Urine 1+ (Negative); Leukocyte Esterase,Urine Trace (Negative); Mucus,Urine Few /hpf; Nitrite,Urine Negative (Negative); Protein,Urine Negative (Negative); RBC,Urine <1 /hpf (0-5); Specific Gravity,Urine 1.023 (1.001-1.035); Squamous Epithelial Cell,Urine <1 /hpf (0-4); WBC,Urine 2 /hpf (0-5)
--- NOTE | 2020-01-27 21:37 | XR ---
EXAMINATION TYPE: XR KUB DATE OF EXAM: 01/27/2020 COMPARISON: NONE HISTORY: Abdominal pain and vomiting TECHNIQUE: 4 views FINDINGS: There is no sign of intestinal obstruction or pneumoperitoneum. Fecal pattern is normal. Th ere is no evidence of a mass. There are no pathologic calcifications over the kidneys. IMPRESSION: Nonacute abdomen.
[2020-01-27] MEDS ORDERED: diphenhydrAMINE 50 MG/ML 1 ML VIAL IVP STA (21:39)
[2020-01-27] MEDS ORDERED: SODIUM CHLORIDE 0.9% 500 ML 500 ML IV STA (21:39)
[2020-01-27] MEDS ORDERED: METOCLOPRAMIDE 5 MG/ML 2 ML VIAL IVP STA (21:39)
--- NOTE | 2020-01-27 22:53 | CT ---
EXAMINATION TYPE: CT abdomen pelvis w con DATE OF EXAM: 01/27/2020 COMPARISON: None HISTORY: Vomiting x5 days. CT DLP: 3984 mGycm Automated exposure control for dose reduction was used. CONTRAST: Performed with IV Contrast, patient injected with 100 mL of Isovue 300. There is small left pleural effusion. There is mild infiltrate and atelectasis left lung base. Heart size is fairly normal. There is no pericardial effusion. There is small hiatal hernia. Liver spleen pancreas gallbladder appear normal. Bile ducts are not dilated. Stomach is intact. There is 7.5 cm rounded mass involving the right adrenal gland that is mostly fat density. Kidneys sh ow satisfactory contrast opacification. There is no hydronephrosis. Ureters are not dilated. Delayed images show normal renal excretion. The bladder distends smoothly. There is no inguinal hernia. There is no free fluid in the pelvis. The re are sigmoid diverticula without evidence of diverticulitis. The appendix is anterior and appears n ormal. There is no mesenteric edema. There is no ascites or free air. There is no bowel obstruction. The lumbar vertebra have normal spacing and alignment. Posterior elements are intact. There is no com pression fracture. The sacroiliac joints are intact. The bony pelvis is intact. IMPRESSION: There is colonic diverticulosis without diverticulitis. Mild left lower lobe pneumonia and atelectasis and pleural reaction. Fat density right adrenal mass consistent with myelolipoma.
[2020-01-27] MEDS ORDERED: AZITHROMYCIN 500 MG TAB PO STA (23:18)
[2020-01-27 23:30] VITALS: BP 122/68; PULSE 92; TEMP 97.9
== END 2020-01-27 23:29 | disposition home or self-care (01) ==
LOC: EC 19:49
DX: K57.30 Diverticulosis of large intestine without perforation or abscess without bleeding (principal); E27.8 Other specified disorders of adrenal gland; J18.9 Pneumonia, unspecified organism; E78.5 Hyperlipidemia, unspecified; E11.40 Type 2 diabetes mellitus with diabetic neuropathy, unspecified; G47.30 Sleep apnea, unspecified; F41.9 Anxiety disorder, unspecified; F32.9 Major depressive disorder, single episode, unspecified; M19.90 Unspecified osteoarthritis, unspecified site; Z79.4 Long term (current) use of insulin; Z79.899 Other long term (current) drug therapy; Z88.6 Allergy status to analgesic agent; Z99.89 Dependence on other enabling machines and devices; Z20.828 Contact with and (suspected) exposure to other viral communicable diseases
CPT/HCPCS: 36415; 80053; 82150; 83605; 83690; 85025; 81001; 87635; 74018; 76705; 74177; 99284; 96374; 96375 ×4; 96361 ×2; J2270; J1200; J2765; J2405; Q9967

== ENCOUNTER 2020-06-25 16:50 | Inpatient (IN) | payer MEDICARE, MEDICAID ==
--- NOTE | 2020-06-25 19:03 | XR ---
EXAMINATION TYPE: XR foot complete LT DATE OF EXAM: 06/25/2020 COMPARISON: NONE HISTORY: Diabetic foot pain. Sore left foot. TECHNIQUE: 3 views FINDINGS: There is moderate hallux valgus. There is plate with screws fixing the first second and thi rd tarsometatarsal joints. There is plantar and Achilles calcaneal spurring. There is some spurring a t the talonavicular joint and also the navicular cuneiform joints. I see no focal bone destruction. T here is spurring at the first MP joint. IMPRESSION: Previous surgery. Degenerative hypertrophic changes. No fracture. No evidence of osteomye litis.
[2020-06-25 19:31] LABS: Basophils # (A) 0.1 k/uL (0-0.2); Basophils % (A) 1 %; Eosinophils # (A) 0.5 k/uL (0-0.7); Eosinophils % (A) 5 %; HGB 15.8 gm/dL (13.0-17.5); Lymphocytes # (A) 3.3 k/uL (1.0-4.8); Lymphocytes % (A) 31 %; MCH 30.1 pg (25.0-35.0); MCHC 33.5 g/dL (31.0-37.0); MCV 89.7 fL (80.0-100.0); Mean Platelet Volume 8.7; Monocytes # (A) 0.6 k/uL (0-1.0); Monocytes % (A) 5 %; Neutrophils % (A) 56 %; Platelet Count 249 k/uL (150-450); RBC 5.24 m/uL (4.30-5.90); RDW 13.8 % (11.5-15.5); WBC 10.7 k/uL (3.8-10.6)
[2020-06-25 19:47] LABS: Appearance,Urine Clear (Clear); Bilirubin,Urine Negative (Negative); Blood,Urine Negative (Negative); Color,Urine Yellow; Glucose,Urine (UA) 4+ (Negative); Ketones,Urine Negative (Negative); Leukocyte Esterase,Urine Negative (Negative); Nitrite,Urine Negative (Negative); PH, Urine 6.5 (5.0-8.0); Protein,Urine Negative (Negative); Specific Gravity,Urine 1.034 (1.001-1.035); Urobilinogen,Urine <2.0 mg/dL (<2.0)
--- NOTE | 2020-06-25 19:49 | ED ---
Psych HPI - General Source: EMS Mode of arrival: EMS <Nikky Grimes - Last Filed: 06/25/20 19:48> <Collin Escobedo - Last Filed: 06/26/20 05:45> - General Chief Complaint: Psychiatric Symptoms Stated Complaint: Mental Health Time Seen by Provider: 06/25/20 18:26 - History of Present Illness Initial Comments: 49-year-old male presents to the ER today for chief complaint of suicidal ideation. Patient states he is feeling down and depressed he states he doesn't want to anything and has not taken any of his medications all week including his diabetic medications. Patient states he has had this cracked calloused area on his left foot and wants to make sure that that isn't getting infected either. Patient denies any vomiting he states he had some nausea. Denies a chest pain shortness of breath fevers cough congestion. Patient denies noting any redness of the foot. Patient denies any suicide attempt or overdose of medications. Patient denies any physical axis self-harm he denies any homicidal ideation. Remaining review of systems negative upon arrival patient appears nontoxic distress he is afebrile (Nikky Grimes) - Related Data Home Medications Medication Instructions Recorded Confirmed Insulin Aspart [NovoLOG Flexpen] 40 unit SQ AC-TID 04/01/19 06/25/20 Atorvastatin Calcium [Lipitor] 20 mg PO HS 01/27/20 06/25/20 Insulin Detemir [Levemir Flextouch] 80 units SQ BID 01/27/20 06/25/20 metFORMIN HCL 1,000 mg PO BID 01/27/20 06/25/20 Ascorbic Acid [Vitamin C] 500 mg PO DAILY 06/25/20 06/25/20 Cholecalciferol [Vitamin D3 (25 50 mcg PO DAILY 06/25/20 06/25/20 Mcg = 1000 Iu)] DULoxetine HCL [Cymbalta] 60 mg PO HS 06/25/20 06/25/20 Famotidine [Pepcid] 20 mg PO BID 06/25/20 06/25/20 Indomethacin [Indocin] 25 mg PO TID PRN 06/25/20 06/25/20 Melatonin 5 mg PO HS PRN 06/25/20 06/25/20 Pantoprazole [Protonix] 40 mg PO DAILY 06/25/20 06/25/20 Potassium Chloride ER [K-Dur 10] 10 meq PO DAILY 06/25/20 06/25/20 Semaglutide [Rybelsus] 3 mg PO AC-BRKFST 06/25/20 06/25/20 Zinc 50 mg PO DAILY 06/25/20 06/25/20 busPIRone HCl [Buspar] 10 mg PO BID 06/25/20 06/25/20 hydrOXYzine pamoate [Vistaril] 25 - 50 mg PO HS 06/25/20 06/25/20 Previous Rx's Medication Instructions Recorded allopurinoL [Zyloprim] 300 mg PO DAILY tab 01/23/18 lisinopriL [Zestril] 10 mg PO DAILY #30 tab 10/21/19 Allergies Allergy/AdvReac Type Severity Reaction Status Date / Time ibuprofen [From Motrin] Allergy Rash/Hives Verified 06/25/20 21:10 Review of Systems ROS Other: All systems not noted in ROS Statement are negative. <Nikky Grimes - Last Filed: 06/25/20 19:48> ROS Other: All systems not noted in ROS Statement are negative. <Collin Escobedo - Last Filed: 06/26/20 05:45> ROS Statement: Those systems with pertinent positive or pertinent negative responses have been documented in the HPI. 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 Crushing injury to left foot metacarpals repaired with plate and 16 screws in past broke lt foot(sx ), myron carpal tunnel. ( Cocaine free for 60 days 09/2019) History of Any Multi-Drug Resistant Organisms: None Reported Past Surgical History: Orthopedic Surgery Additional Past Surgical History / Comment(s): lasik eye sx ,left foot surgery. to reprair break-"has 2 plates and 16 screws" left groin boil cellulitis with excision and debriedment and NPWT performed by Dr. Estrella. Past Anesthesia/Blood Transfusion Reactions: No Reported Reaction Past Psychological History: Anxiety, Bipolar, Depression, PTSD Smoking Status: Never smoker Past Alcohol Use History: None Reported Past Drug Use History: Marijuana - Past Family History Mother Family Medical History: Cancer, Diabetes Mellitus Father Family Medical History: Myocardial Infarction ([place]) Additional Family Medical History / Comment(s): stroke <Nikky Grimes - Last Filed: 06/25/20 19:48> General Exam Limitations: no limitations <Nikky Grimes - Last Filed: 06/25/20 19:48> Course Vital Signs 06/25/20 06/25/20 18:04 22:25 Temperature 98.6 F Pulse Rate 98 80 Respiratory 18 18 Rate Blood Pressure 152/92 125/95 O2 Sat by Pulse 96 99 Oximetry Medical Decision Making - Lab Data Result diagrams: 06/25/20 19:26 <Nikky Grimes Ирина - Last Filed: 06/25/20 19:48> - Lab Data Result diagrams: 06/25/20 19:26 06/25/20 19:26 <Collin Escobedo - Last Filed: 06/26/20 05:45> - Medical Decision Making 49 male be admitted for psychiatric evaluation and treatment (Collin Escobedo) - Lab Data Lab Results 06/25/20 06/25/20 06/25/20 Range/Units 19:26 19:26 19:38 WBC 10.7 H (3.8-10.6) k/uL RBC 5.24 (4.30-5.90) m/uL Hgb 15.8 (13.0-17.5) gm/dL Hct 47.0 (39.0-53.0) % MCV 89.7 (80.0-100.0) fL MCH 30.1 (25.0-35.0) pg MCHC 33.5 (31.0-37.0) g/dL RDW 13.8 (11.5-15.5) % Plt Count 249 (150-450) k/uL MPV 8.7 Neutrophils % 56 % Lymphocytes % 31 % Monocytes % 5 % Eosinophils % 5 % Basophils % 1 % Neutrophils # 6.0 (1.3-7.7) k/uL Lymphocytes # 3.3 (1.0-4.8) k/uL Monocytes # 0.6 (0-1.0) k/uL Eosinophils # 0.5 (0-0.7) k/uL Basophils # 0.1 (0-0.2) k/uL Sodium 137 (137-145) mmol/L Potassium 4.2 (3.5-5.1) mmol/L Chloride 101 (98-107) mmol/L Carbon Dioxide 30 (22-30) mmol/L Anion Gap 6 mmol/L BUN 13 (9-20) mg/dL Creatinine 0.56 L (0.66-1.25) mg/dL Est GFR (CKD-EPI)AfAm >90 (>60 ml/min/1.73 sqM) Est GFR (CKD-EPI)NonAf >90 (>60 ml/min/1.73 sqM) Glucose 384 H (74-99) mg/dL POC Glucose (mg/dL) (75-99) mg/dL POC Glu Electrophysiologist ID Calcium 9.2 (8.4-10.2) mg/dL Phosphorus 4.3 (2.5-4.5) mg/dL Magnesium 1.7 (1.6-2.3) mg/dL Total Bilirubin 0.3 (0.2-1.3) mg/dL AST 28 (17-59) U/L ALT 24 (4-49) U/L Alkaline Phosphatase 80 (38-126) U/L Total Protein 6.7 (6.3-8.2) g/dL Albumin 3.3 L (3.5-5.0) g/dL Urine Color Yellow Urine Appearance Clear (Clear) Urine pH 6.5 (5.0-8.0) Ur Specific [place] 1.034 (1.001-1.035) Urine Protein Negative (Negative) Urine Glucose (UA) 4+ H (Negative) Urine Ketones Negative (Negative) Urine Blood Negative (Negative) Urine Nitrite Negative (Negative) Urine Bilirubin Negative (Negative) Urine Urobilinogen <2.0 (<2.0) mg/dL Ur Leukocyte Esterase Negative (Negative) Urine Opiates Screen (NotDetected) Ur Oxycodone Screen (NotDetected) Urine Methadone Screen (NotDetected) Ur Propoxyphene Screen (NotDetected) Ur Barbiturates Screen (NotDetected) U Tricyclic Antidepress (NotDetected) Ur Phencyclidine Scrn (NotDetected) Ur Amphetamines Screen (NotDetected) U Methamphetamines Scrn (NotDetected) U Benzodiazepines Scrn (NotDetected) Urine Cocaine Screen (NotDetected) U Marijuana (THC) Screen (NotDetected) Acetone, Qual Negative (Negative) Coronavirus (PCR) (Not Detectd) 06/25/20 06/26/20 06/26/20 Range/Units 19:50 01:01 04:40 WBC (3.8-10.6) k/uL RBC (4.30-5.90) m/uL Hgb (13.0-17.5) gm/dL Hct (39.0-53.0) % MCV (80.0-100.0) fL MCH (25.0-35.0) pg MCHC (31.0-37.0) g/dL RDW (11.5-15.5) % Plt Count (150-450) k/uL MPV Neutrophils % % Lymphocytes % % Monocytes % % Eosinophils % % Basophils % % Neutrophils # (1.3-7.7) k/uL Lymphocytes # (1.0-4.8) k/uL Monocytes # (0-1.0) k/uL Eosinophils # (0-0.7) k/uL Basophils # (0-0.2) k/uL Sodium (137-145) mmol/L Potassium (3.5-5.1) mmol/L Chloride (98-107) mmol/L Carbon Dioxide (22-30) mmol/L Anion Gap mmol/L BUN (9-20) mg/dL Creatinine (0.66-1.25) mg/dL Est GFR (CKD-EPI)AfAm (>60 ml/min/1.73 sqM) Est GFR (CKD-EPI)NonAf (>60 ml/min/1.73 sqM) Glucose (74-99) mg/dL POC Glucose (mg/dL) 196 H (75-99) mg/dL POC Glu Electrophysiologist ID Padmini Low Calcium (8.4-10.2) mg/dL Phosphorus (2.5-4.5) mg/dL Magnesium (1.6-2.3) mg/dL Total Bilirubin (0.2-1.3) mg/dL AST (17-59) U/L ALT (4-49) U/L Alkaline Phosphatase (38-126) U/L Total Protein (6.3-8.2) g/dL Albumin (3.5-5.0) g/dL Urine Color Urine Appearance (Clear) Urine pH (5.0-8.0) Ur Specific [place] (1.001-1.035) Urine Protein (Negative) Urine Glucose (UA) (Negative) Urine Ketones (Negative) Urine Blood (Negative) Urine Nitrite (Negative) Urine Bilirubin (Negative) Urine Urobilinogen (<2.0) mg/dL Ur Leukocyte Esterase (Negative) Urine Opiates Screen Not Detected (NotDetected) Ur Oxycodone Screen Not Detected (NotDetected) Urine Methadone Screen Not Detected (NotDetected) Ur Propoxyphene Screen Not Detected (NotDetected) Ur Barbiturates Screen Not Detected (NotDetected) U Tricyclic Antidepress Not Detected (NotDetected) Ur Phencyclidine Scrn Not Detected (NotDetected) Ur Amphetamines Screen Not Detected (NotDetected) U Methamphetamines Scrn Not Detected (NotDetected) U Benzodiazepines Scrn Not Detected (NotDetected) Urine Cocaine Screen Detected H (NotDetected) U Marijuana (THC) Screen Not Detected (NotDetected) Acetone, Qual (Negative) Coronavirus (PCR) Not Detected (Not Detectd) Disposition <Nikky Grimes L - Last Filed: 06/25/20 19:48> Is patient prescribed a controlled substance at d/c from ED?: No <Collin Escobedo - Last Filed: 06/26/20 05:45> Clinical Impression: Mood disorder, Major depressive disorder, recurrent, severe with psychotic feat ures, Suicidal ideation Disposition: TRANSFER TO PSYCH HOSP/UNIT Condition: Fair
[2020-06-25 20:00] LABS: ALT 24 U/L (4-49); AST 28 U/L (17-59); African American GFR (CKD) >90 (>60 ml/min/1.73 sqM); Albumin 3.3 g/dL (3.5-5.0); Alkaline Phosphatase 80 U/L (38-126); Anion Gap 6 mmol/L; Blood Urea Nitrogen 13 mg/dL (9-20); Calcium 9.2 mg/dL (8.4-10.2); Carbon Dioxide 30 mmol/L (22-30); Chloride 101 mmol/L (98-107); Glucose 384 mg/dL (74-99); Magnesium 1.7 mg/dL (1.6-2.3); Non-African American GFR(CKD) >90 (>60 ml/min/1.73 sqM); Phosphorus 4.3 mg/dL (2.5-4.5); Potassium 4.2 mmol/L (3.5-5.1); Sodium 137 mmol/L (137-145); Total Bilirubin 0.3 mg/dL (0.2-1.3); Total Protein 6.7 g/dL (6.3-8.2)
[2020-06-25 20:19] LABS: Amphetamine Screen,Urine Not Detected (NotDetected); Barbiturate Screen,Urine Not Detected (NotDetected); Benzodiazepines Screen,Urine Not Detected (NotDetected); Cocaine Screen,Urine Detected (NotDetected); Methadone Screen, Urine Not Detected (NotDetected); Opiate Screen,Urine Not Detected (NotDetected); Oxycodone Screen, Urine Not Detected (NotDetected); Phencyclidine Screen,Urine Not Detected (NotDetected); Tricyclic Antidepressant,Urine Not Detected (NotDetected); Urn Cannabinoid Scrn Not Detected (NotDetected)
[2020-06-25] MEDS ORDERED: INSULIN REGULAR 100 UNIT/ML VIAL SQ ONE (20:34)
[2020-06-26] MEDS ORDERED: MELATONIN 5 MG TABLET PO PRN (00:44)
[2020-06-26] MEDS ORDERED: INDOMETHACIN 25 MG CAP PO PRN (00:44)
[2020-06-26] MEDS ORDERED: GABAPENTIN 400 MG CAP PO STA (01:00)
[2020-06-26 01:03] LABS: Glucose,Whole Blood 196 mg/dL (75-99)
[2020-06-26] MEDS ORDERED: ACETAMINOPHEN TAB 325 MG TAB PO PRN (05:53)
[2020-06-26] MEDS ORDERED: MAG HYDROX/AL HYDROX/SIMETH 30 ML CUP PO PRN (05:53)
[2020-06-26] MEDS ORDERED: MAGNESIUM HYDROXIDE 2,400 MG/10 ML CUP PO PRN (05:53)
[2020-06-26] MEDS ORDERED: LORazepam 2 MG/ML INJ IM PRN (05:58)
[2020-06-26] MEDS ORDERED: HALOPERIDOL LACTATE 5 MG/ML 1 ML VIAL IM PRN (05:59)
[2020-06-26 06:57] LABS: Bilirubin,Unconjugated 0.3 mg/dL (0.0-1.1)
[2020-06-26] MEDS ORDERED: INSULIN DETEMIR (LEVEMIR) 100 UNIT/ML SYR SQ SCH (07:00)
[2020-06-26] MEDS ORDERED: NON FORMULARY DRUG (Semaglutide [Rybelsus] 3 MG Tablet) PO SCH (07:30)
[2020-06-26] MEDS ORDERED: INSULIN ASPART (NovoLOG) 100 UNIT/ML VIAL SQ SCH (07:30)
[2020-06-26] MEDS ORDERED: PANTOPRAZOLE 40 MG TABLET PO SCH (07:30)
[2020-06-26 07:43] LABS: Glucose,Whole Blood 222 mg/dL (75-99)
[2020-06-26] MEDS: INSULIN ASPART (NovoLOG) 100 UNIT/ML VIAL SQ SCH ×5 (08:52→20:00)
[2020-06-26] MEDS: lisinopriL 10 MG TAB PO SCH (08:53)
[2020-06-26] MEDS: busPIRone HCl 10 MG TAB PO SCH ×2 (08:53→20:53)
[2020-06-26] MEDS ORDERED: metFORMIN 500 MG TAB PO SCH (09:00)
[2020-06-26] MEDS ORDERED: FAMOTIDINE 20 MG TAB PO SCH (09:00)
[2020-06-26] MEDS ORDERED: ZINC SULFATE 220 MG CAP PO SCH (09:00)
[2020-06-26] MEDS ORDERED: busPIRone HCl 10 MG TAB PO SCH (09:00)
[2020-06-26] MEDS ORDERED: POTASSIUM CHLORIDE ER 10 MEQ TAB.ER.PRT PO SCH (09:00)
[2020-06-26] MEDS ORDERED: allopurinoL 300 MG TAB PO SCH (09:00)
[2020-06-26] MEDS ORDERED: CHOLECALCIFEROL 25 MCG (1000 IU) TABLET PO SCH (09:00)
[2020-06-26] MEDS ORDERED: ASCORBIC ACID 500 MG TAB PO SCH (09:00)
[2020-06-26 12:59] LABS: Glucose,Whole Blood 221 mg/dL (75-99)
[2020-06-26] MEDS ORDERED: PANTOPRAZOLE 40 MG TABLET PO STA (14:40)
[2020-06-26] MEDS: POTASSIUM CHLORIDE ER 10 MEQ TAB.ER.PRT PO SCH (15:14)
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
[2020-06-26] MEDS: GABAPENTIN 400 MG CAP PO SCH ×2 (15:15→20:52)
[2020-06-26] MEDS: LORazepam 1 MG TAB PO PRN (15:20)
[2020-06-26] MEDS: ZINC SULFATE 220 MG CAP PO SCH (15:20)
[2020-06-26] MEDS: allopurinoL 300 MG TAB PO SCH (15:20)
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
[2020-06-26 16:13] LABS: Hemoglobin A1C 8.7 % (4.0-6.0)
[2020-06-26] MEDS: metFORMIN 500 MG TAB PO SCH (17:50)
[2020-06-26 17:58] LABS: Glucose,Whole Blood 232 mg/dL (75-99)
[2020-06-26 19:52] LABS: Glucose,Whole Blood 254 mg/dL (75-99)
[2020-06-26] MEDS: INSULIN DETEMIR (LEVEMIR) 100 UNIT/ML SYR SQ SCH (20:50)
[2020-06-26] MEDS: MELATONIN 5 MG TABLET PO SCH (20:52)
[2020-06-26] MEDS: DULoxetine HCL 30 MG CAPSULE.DR PO SCH (20:52)
[2020-06-26] MEDS: ATORVASTATIN 20 MG TAB PO SCH (20:52)
[2020-06-26] MEDS: FAMOTIDINE 20 MG TAB PO SCH (20:52)
[2020-06-26] MEDS ORDERED: ATORVASTATIN 20 MG TAB PO SCH (21:00)
[2020-06-26] MEDS ORDERED: DULoxetine HCL 60 MG CAPSULE.DR PO SCH ×2 (21:00)
[2020-06-26] MEDS: INDOMETHACIN 25 MG CAP PO SCH (23:05)
[2020-06-27 07:56] LABS: Glucose,Whole Blood 192 mg/dL (75-99)
[2020-06-27] MEDS: INSULIN DETEMIR (LEVEMIR) 100 UNIT/ML SYR SQ SCH ×2 (08:27→21:20)
[2020-06-27] MEDS: INSULIN ASPART (NovoLOG) 100 UNIT/ML VIAL SQ SCH ×7 (08:28→20:38)
[2020-06-27] MEDS: metFORMIN 500 MG TAB PO SCH ×2 (08:45→18:15)
[2020-06-27] MEDS: FAMOTIDINE 20 MG TAB PO SCH ×2 (08:45→21:21)
[2020-06-27] MEDS: busPIRone HCl 10 MG TAB PO SCH ×2 (08:45→21:21)
[2020-06-27] MEDS: lisinopriL 10 MG TAB PO SCH (08:46)
[2020-06-27] MEDS: INDOMETHACIN 25 MG CAP PO SCH ×2 (08:46→21:22)
[2020-06-27] MEDS: GABAPENTIN 400 MG CAP PO SCH ×3 (08:46→21:27)
[2020-06-27] MEDS: POTASSIUM CHLORIDE ER 10 MEQ TAB.ER.PRT PO SCH (08:47)
[2020-06-27] MEDS: allopurinoL 300 MG TAB PO SCH (08:48)
[2020-06-27] MEDS: ZINC SULFATE 220 MG CAP PO SCH (08:48)
[2020-06-27 12:52] LABS: Glucose,Whole Blood 192 mg/dL (75-99)
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
[2020-06-27 17:56] LABS: Glucose,Whole Blood 89 mg/dL (75-99)
[2020-06-27 20:09] LABS: Glucose,Whole Blood 78 mg/dL (75-99)
[2020-06-27] MEDS: ATORVASTATIN 20 MG TAB PO SCH (21:21)
[2020-06-27] MEDS: DULoxetine HCL 30 MG CAPSULE.DR PO SCH (21:21)
[2020-06-27] MEDS: MELATONIN 5 MG TABLET PO SCH (21:25)
[2020-06-27] MEDS: LITHIUM CARBONATE 300 MG CAP PO SCH (21:26)
[2020-06-27] MEDS: traZODone HCL 100 MG TAB PO PRN (21:27)
[2020-06-28 07:44] LABS: Glucose,Whole Blood 117 mg/dL (75-99)
[2020-06-28] MEDS: INSULIN ASPART (NovoLOG) 100 UNIT/ML VIAL SQ SCH ×7 (07:44→23:02)
[2020-06-28] MEDS: INSULIN DETEMIR (LEVEMIR) 100 UNIT/ML SYR SQ SCH ×2 (07:59→22:24)
[2020-06-28] MEDS: metFORMIN 500 MG TAB PO SCH ×2 (08:00→18:58)
[2020-06-28] MEDS: FAMOTIDINE 20 MG TAB PO SCH ×2 (08:01→22:21)
[2020-06-28] MEDS: GABAPENTIN 400 MG CAP PO SCH ×3 (08:01→22:22)
[2020-06-28] MEDS: allopurinoL 300 MG TAB PO SCH (08:01)
[2020-06-28] MEDS: busPIRone HCl 10 MG TAB PO SCH ×2 (08:01→22:21)
[2020-06-28] MEDS: INDOMETHACIN 25 MG CAP PO SCH ×2 (08:02→22:21)
[2020-06-28] MEDS: LITHIUM CARBONATE 300 MG CAP PO SCH ×3 (08:02→22:21)
[2020-06-28] MEDS: lisinopriL 10 MG TAB PO SCH (08:02)
[2020-06-28] MEDS: POTASSIUM CHLORIDE ER 10 MEQ TAB.ER.PRT PO SCH (08:02)
[2020-06-28] MEDS: ZINC SULFATE 220 MG CAP PO SCH (08:03)
[2020-06-28 12:48] LABS: Glucose,Whole Blood 136 mg/dL (75-99)
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
[2020-06-28 18:20] LABS: Glucose,Whole Blood 74 mg/dL (75-99)
[2020-06-28 20:01] LABS: Glucose,Whole Blood 73 mg/dL (75-99)
[2020-06-28] MEDS: DULoxetine HCL 30 MG CAPSULE.DR PO SCH (22:21)
[2020-06-28] MEDS: MELATONIN 5 MG TABLET PO SCH (22:21)
[2020-06-28] MEDS: traZODone HCL 100 MG TAB PO PRN (22:22)
[2020-06-28] MEDS: ATORVASTATIN 20 MG TAB PO SCH (22:22)
[2020-06-29 08:02] LABS: Glucose,Whole Blood 186 mg/dL (75-99)
[2020-06-29] MEDS: FAMOTIDINE 20 MG TAB PO SCH ×2 (08:05→21:51)
[2020-06-29] MEDS: INSULIN DETEMIR (LEVEMIR) 100 UNIT/ML SYR SQ SCH ×2 (08:05→20:14)
[2020-06-29] MEDS: INSULIN ASPART (NovoLOG) 100 UNIT/ML VIAL SQ SCH ×7 (08:05→21:58)
[2020-06-29] MEDS: busPIRone HCl 10 MG TAB PO SCH ×2 (08:05→21:51)
[2020-06-29] MEDS: POTASSIUM CHLORIDE ER 10 MEQ TAB.ER.PRT PO SCH (08:06)
[2020-06-29] MEDS: metFORMIN 500 MG TAB PO SCH ×2 (08:06→18:00)
[2020-06-29] MEDS: GABAPENTIN 400 MG CAP PO SCH ×3 (08:06→21:52)
[2020-06-29] MEDS: lisinopriL 10 MG TAB PO SCH (08:07)
[2020-06-29] MEDS: LITHIUM CARBONATE 300 MG CAP PO SCH (08:07)
[2020-06-29] MEDS: INDOMETHACIN 25 MG CAP PO SCH ×2 (09:21→21:53)
[2020-06-29] MEDS: allopurinoL 300 MG TAB PO SCH (09:22)
[2020-06-29] MEDS: ZINC SULFATE 220 MG CAP PO SCH (09:22)
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
[2020-06-29 12:58] LABS: Glucose,Whole Blood 153 mg/dL (75-99)
[2020-06-29 18:02] LABS: Glucose,Whole Blood 120 mg/dL (75-99)
[2020-06-29 19:59] LABS: Glucose,Whole Blood 99 mg/dL (75-99)
[2020-06-29] MEDS ORDERED: traZODone HCL 100 MG TAB PO SCH (21:00)
[2020-06-29] MEDS: ATORVASTATIN 20 MG TAB PO SCH (21:51)
[2020-06-29] MEDS: DULoxetine HCL 30 MG CAPSULE.DR PO SCH (21:51)
[2020-06-29] MEDS: MELATONIN 5 MG TABLET PO SCH (21:52)
[2020-06-29] MEDS: LITHIUM CARBONATE 150 MG CAP PO SCH (21:52)
[2020-06-29] MEDS: LORazepam 1 MG TAB PO PRN (21:52)
[2020-06-30 08:16] LABS: Glucose,Whole Blood 101 mg/dL (75-99)
[2020-06-30] MEDS: INSULIN DETEMIR (LEVEMIR) 100 UNIT/ML SYR SQ SCH ×2 (08:32→20:11)
[2020-06-30] MEDS: INSULIN ASPART (NovoLOG) 100 UNIT/ML VIAL SQ SCH ×7 (08:33→20:08)
[2020-06-30] MEDS: busPIRone HCl 10 MG TAB PO SCH ×2 (08:35→21:48)
[2020-06-30] MEDS: metFORMIN 500 MG TAB PO SCH ×2 (08:35→18:09)
[2020-06-30] MEDS: GABAPENTIN 400 MG CAP PO SCH ×3 (08:35→21:53)
[2020-06-30] MEDS: LITHIUM CARBONATE 150 MG CAP PO SCH ×2 (08:36→21:50)
[2020-06-30] MEDS: allopurinoL 300 MG TAB PO SCH (08:36)
[2020-06-30] MEDS: FAMOTIDINE 20 MG TAB PO SCH ×2 (08:36→21:49)
[2020-06-30] MEDS: lisinopriL 10 MG TAB PO SCH (08:36)
[2020-06-30] MEDS: INDOMETHACIN 25 MG CAP PO SCH ×2 (08:37→21:49)
[2020-06-30] MEDS: POTASSIUM CHLORIDE ER 10 MEQ TAB.ER.PRT PO SCH (08:40)
[2020-06-30] MEDS: ZINC SULFATE 220 MG CAP PO SCH (08:40)
--- NOTE | 2020-06-30 11:37 | P.PN ---
Progress Note - Text Progress Note Date: 06/30/20 Interval History: Patient was seen in his room this morning and was directable and agreeable to speak with senior mortgage underwriter. He was asleep and awoken by senior mortgage underwriter. He claims that today he is feeling fairly depressed once again and had his head down with poor eye contact during conversation. He states that he is trying to find "reasons to live" and states that his anxiety is bad as well. He spoke about his mother today as well. He claims that he feels "like I tried so hard with this ruined everything" and spoke about his long history of mental illness and hospitalizations. He claims that he is willing to continue taking his medications and has been trying to go to some groups and participate as best as he can. He claims that he had poor appetite this morning. At this time patient denies any homical ideations, intent or plan. He states that he does have fleeting thoughts of suicide however no intent or plan. Patient denies any auditory, visual hallucinations and denies any paranoia or delusions. Patient denies any side effects from the medications and has been compliant with meds. Mental Status Exam: General Appearance: Patient appears to be obese, stated age is alert, directable, and attempts to be cooperative. Hygiene and grooming improving. Poor eye contact. Behavior: Patient is calmly seated without any agitated behavior. Constricted Speech: Patient's speech is fluent and nonpressured. Mood/Affect: Mood is depressed and anxious, affect is congruent and constricted. Suicidality/Homicidality: Patient denies having any suicidal or homicidal ideation intent or plan. Perceptions: Patient denies any visual hallucinations and denies any auditory hallucinations Though content/process: Patient is circumstantial in thought process. He was logical and focused on his stressors. Hopelessness. Denying any paranoia or delusions. Memory and concentration: AOX3, grossly intact for the purposes of this session Judgment and insight: Improving mildly Assessment Major depressive disorder recurrent severe without psychotic features cocaine abuse diabetes mellitus Plan: -Patient continues to meet criteria for inpatient psychiatric admission for symptom stabilization and safety. Patient has signed adult voluntary form and medication consent and was placed in patient's chart. -Medications: increased Cymbalta 60 mg bid for mood/anxiety/pain, BuSpar 20 mg twice a day for anxiety. Increased trazodone 150 mg daily at bedtime for insomnia/mood. Continue with melatonin 5 mg daily at bedtime for insomnia. continue with lithium to 450 mg twice a day for mood stabilization/suicidal ideations. -When necessary Ativan and Haldol for agitation/aggression. -NRT - not needed as patient does not smoke -SW on board for discharge planning. Encouraged the patient to participate in milieu. Will continue titrating patient's medications. Likely discharge in 1-2 days back home.
[2020-06-30 12:45] LABS: Glucose,Whole Blood 137 mg/dL (75-99)
[2020-06-30] MEDS: LORazepam 1 MG TAB PO PRN ×2 (13:53→21:53)
[2020-06-30 17:45] LABS: Glucose,Whole Blood 95 mg/dL (75-99)
[2020-06-30 20:17] LABS: Glucose,Whole Blood 96 mg/dL (75-99)
[2020-06-30] MEDS: ATORVASTATIN 20 MG TAB PO SCH (21:48)
[2020-06-30] MEDS: DULoxetine HCL 60 MG CAPSULE.DR PO SCH (21:49)
[2020-06-30] MEDS: traZODone HCL 50 MG TAB PO SCH (21:51)
[2020-06-30] MEDS: MELATONIN 5 MG TABLET PO SCH (21:51)
[2020-07-01 07:58] LABS: Glucose,Whole Blood 144 mg/dL (75-99)
[2020-07-01] MEDS: metFORMIN 500 MG TAB PO SCH ×2 (08:05→17:54)
[2020-07-01] MEDS: INSULIN ASPART (NovoLOG) 100 UNIT/ML VIAL SQ SCH ×7 (08:06→20:20)
[2020-07-01] MEDS: INSULIN DETEMIR (LEVEMIR) 100 UNIT/ML SYR SQ SCH ×2 (08:06→20:21)
[2020-07-01] MEDS: allopurinoL 300 MG TAB PO SCH (08:48)
[2020-07-01] MEDS: busPIRone HCl 10 MG TAB PO SCH ×2 (08:49→22:12)
[2020-07-01] MEDS: GABAPENTIN 400 MG CAP PO SCH ×3 (08:49→22:11)
[2020-07-01] MEDS: FAMOTIDINE 20 MG TAB PO SCH ×2 (08:49→22:11)
[2020-07-01] MEDS: INDOMETHACIN 25 MG CAP PO SCH ×2 (08:49→22:18)
[2020-07-01] MEDS: DULoxetine HCL 60 MG CAPSULE.DR PO SCH ×2 (08:49→22:13)
[2020-07-01] MEDS: LITHIUM CARBONATE 150 MG CAP PO SCH ×2 (08:50→22:10)
[2020-07-01] MEDS: lisinopriL 10 MG TAB PO SCH (08:50)
[2020-07-01] MEDS: ZINC SULFATE 220 MG CAP PO SCH (08:51)
[2020-07-01] MEDS: POTASSIUM CHLORIDE ER 10 MEQ TAB.ER.PRT PO SCH (08:51)
--- NOTE | 2020-07-01 12:17 | P.PN ---
Progress Note - Text Progress Note Date: 07/01/20 Interval History: Patient was seen in his room this morning and was directable and agreeable to speak with global technical writer. He was asleep and awoken by global technical writer. She claims that last night he turned in his sheets to the nurses because he was feeling suicidal and did not want to harm himself. Today he continues to claim that he is feeling depressed and had poor eye contact. He claims that he has not been getting out of bed much. He states that he is having significant flashbacks to the trauma that occurred to him prior to coming into the hospital. He claims that he is also having nightmares. He asked global technical writer several times "why is this happening to me?". He claims that he is willing to continue taking his medications and has been trying to go to some groups and participate as best as he can. He claims that he had poor appetite this morning. At this time patient denies any homical ideations, intent or plan. He states that he does have fleeting thoughts of suicide however no intent or plan. Patient denies any auditory, visual hallucinations and denies any paranoia or delusions. Patient denies any side effects from the medications and has been compliant with meds. Mental Status Exam: General Appearance: Patient appears to be obese, stated age is alert, directable, and attempts to be cooperative. Hygiene and grooming improving. Poor eye contact. Behavior: Patient is calmly seated without any agitated behavior. Constricted Speech: Patient's speech is fluent and nonpressured. Mood/Affect: Mood is depressed and anxious, affect is congruent and constricted. Suicidality/Homicidality: Patient denies having any suicidal or homicidal ideation intent or plan. Perceptions: Patient denies any visual hallucinations and denies any auditory hallucinations Though content/process: Patient is circumstantial in thought process. He was logical and focused on his stressors. Hopelessness. Denying any paranoia or delusions. Memory and concentration: AOX3, grossly intact for the purposes of this session Judgment and insight: Improving mildly Assessment Major depressive disorder recurrent severe without psychotic features Likely borderline personality disorder cocaine abuse diabetes mellitus Plan: -Patient continues to meet criteria for inpatient psychiatric admission for symptom stabilization and safety. Patient has signed adult voluntary form and medication consent and was placed in patient's chart. -Medications: Continue with Cymbalta 60 mg bid for mood/anxiety/pain, BuSpar 20 mg twice a day for anxiety. Continue trazodone 150 mg daily at bedtime for insomnia/mood. Continue with melatonin 5 mg daily at bedtime for insomnia. continue with lithium to 450 mg twice a day for mood stabilization/suicidal ideations. Added Geodon 20 mg daily at bedtime for mood stabilization -When necessary Ativan and Haldol for agitation/aggression. -NRT - not needed as patient does not smoke -SW on board for discharge planning. Encouraged the patient to participate in milieu. Will continue titrating patient's medications.
[2020-07-01 12:47] LABS: Glucose,Whole Blood 117 mg/dL (75-99)
[2020-07-01 17:45] LABS: Glucose,Whole Blood 132 mg/dL (75-99)
[2020-07-01] MEDS: LORazepam 1 MG TAB PO PRN (18:46)
[2020-07-01 20:11] LABS: Glucose,Whole Blood 113 mg/dL (75-99)
[2020-07-01] MEDS: MELATONIN 5 MG TABLET PO SCH (22:10)
[2020-07-01] MEDS: ATORVASTATIN 20 MG TAB PO SCH (22:11)
[2020-07-01] MEDS: ZIPRASIDONE 20 MG CAP PO SCH (22:11)
[2020-07-01] MEDS: traZODone HCL 50 MG TAB PO SCH (22:12)
[2020-07-02 07:51] LABS: Glucose,Whole Blood 133 mg/dL (75-99)
[2020-07-02] MEDS: INSULIN DETEMIR (LEVEMIR) 100 UNIT/ML SYR SQ SCH ×2 (08:01→21:16)
[2020-07-02] MEDS: metFORMIN 500 MG TAB PO SCH ×2 (08:02→18:14)
[2020-07-02] MEDS: INSULIN ASPART (NovoLOG) 100 UNIT/ML VIAL SQ SCH ×7 (08:02→21:24)
[2020-07-02] MEDS: FAMOTIDINE 20 MG TAB PO SCH ×2 (08:03→21:15)
[2020-07-02] MEDS: busPIRone HCl 10 MG TAB PO SCH ×2 (08:34→21:15)
[2020-07-02] MEDS: allopurinoL 300 MG TAB PO SCH (08:34)
[2020-07-02] MEDS: GABAPENTIN 400 MG CAP PO SCH ×3 (08:34→21:16)
[2020-07-02] MEDS: DULoxetine HCL 60 MG CAPSULE.DR PO SCH ×2 (08:34→21:15)
[2020-07-02] MEDS: INDOMETHACIN 25 MG CAP PO SCH ×2 (08:35→21:32)
[2020-07-02] MEDS: lisinopriL 10 MG TAB PO SCH (08:35)
[2020-07-02] MEDS: ZINC SULFATE 220 MG CAP PO SCH (08:36)
[2020-07-02] MEDS: POTASSIUM CHLORIDE ER 10 MEQ TAB.ER.PRT PO SCH (08:36)
[2020-07-02] MEDS: LITHIUM CARBONATE 150 MG CAP PO SCH ×2 (08:36→21:15)
--- NOTE | 2020-07-02 11:23 | P.PN ---
Progress Note - Text Progress Note Date: 07/02/20 Interval History: Patient was seen in his room this morning and was directable and agreeable to speak with physician underwriter. He was also seen earlier walking down the hallway to work group and said hello and good morning to physician underwriter. He appears to be more awake today and claims that he is doing "a bit better". He was asking about potential discharge today. He states that he spoke with his therapist/counselor Alexi on the unit yesterday which helped him put things more in to perspective. He claims that he is still feeling somewhat depressed however his mood and anxiety have been gradually improving. He states that he was able to sleep throughout most of the night however did have one awakening. He states that he did not have any nightmares last night. He claims that he is willing to continue taking his medications and has been trying to go to some groups and participate as best as he can. He claims that he had poor appetite this morning. He asked about having his trazodone increased for tonight. At this time patient denies any homical ideations, intent or plan. He is currently denying any suicidal or homicidal ideations intent or plan. Patient denies any auditory, visual hallucinations and denies any paranoia or delusions. Patient denies any side effects from the medications and has been compliant with meds. Mental Status Exam: General Appearance: Patient appears to be obese, stated age is alert, directable, and attempts to be cooperative. Hygiene and grooming improving. Improving eye contact Behavior: Patient is calmly seated without any agitated behavior. Constricted Speech: Patient's speech is fluent and nonpressured. Mood/Affect: Mood is depressed and anxious, improving mildly, affect is congruent and constricted. Suicidality/Homicidality: Patient denies having any suicidal or homicidal ideation intent or plan. Perceptions: Patient denies any visual hallucinations and denies any auditory hallucinations Though content/process: Patient is circumstantial in thought process. More positive outlook. Denying any paranoia or delusions. Memory and concentration: AOX3, grossly intact for the purposes of this session Judgment and insight: Poor, Improving mildly Assessment Major depressive disorder recurrent severe without psychotic features Likely borderline personality disorder cocaine abuse diabetes mellitus Plan: -Patient continues to meet criteria for inpatient psychiatric admission for symptom stabilization and safety. Patient has signed adult voluntary form and medication consent and was placed in patient's chart. -Medications: Continue with Cymbalta 60 mg bid for mood/anxiety/pain, BuSpar 20 mg twice a day for anxiety. increased trazodone 200 mg daily at bedtime for insomnia/mood. Continue with melatonin 5 mg daily at bedtime for insomnia. continue with lithium to 450 mg twice a day for mood stabilization/suicidal ideations. continue with Geodon 20 mg daily at bedtime for mood stabilization -Will check lithium level tomorrow morning. -When necessary Ativan and Haldol for agitation/aggression. -NRT - not needed as patient does not smoke -SW on board for discharge planning. Encouraged the patient to participate in milieu. Will continue titrating patient's medications. likely discharge in 1-2 days.
[2020-07-02 13:13] LABS: Glucose,Whole Blood 92 mg/dL (75-99)
[2020-07-02 18:10] LABS: Glucose,Whole Blood 108 mg/dL (75-99)
[2020-07-02 20:13] LABS: Glucose,Whole Blood 126 mg/dL (75-99)
[2020-07-02] MEDS: ATORVASTATIN 20 MG TAB PO SCH (21:15)
[2020-07-02] MEDS: MELATONIN 5 MG TABLET PO SCH (21:15)
[2020-07-02] MEDS: traZODone HCL 100 MG TAB PO SCH (21:15)
[2020-07-02] MEDS: LORazepam 1 MG TAB PO PRN (21:21)
[2020-07-02] MEDS: ZIPRASIDONE 20 MG CAP PO SCH (21:26)
[2020-07-03 07:44] LABS: Glucose,Whole Blood 174 mg/dL (75-99)
[2020-07-03] MEDS: INSULIN DETEMIR (LEVEMIR) 100 UNIT/ML SYR SQ SCH ×2 (07:56→20:31)
[2020-07-03] MEDS: INSULIN ASPART (NovoLOG) 100 UNIT/ML VIAL SQ SCH ×7 (07:56→20:30)
[2020-07-03] MEDS: INDOMETHACIN 25 MG CAP PO SCH ×2 (07:58→21:35)
[2020-07-03] MEDS: ZINC SULFATE 220 MG CAP PO SCH (07:58)
[2020-07-03] MEDS: busPIRone HCl 10 MG TAB PO SCH ×2 (07:58→21:33)
[2020-07-03] MEDS: DULoxetine HCL 60 MG CAPSULE.DR PO SCH ×2 (07:58→21:35)
[2020-07-03] MEDS: FAMOTIDINE 20 MG TAB PO SCH ×2 (07:59→21:33)
[2020-07-03] MEDS: POTASSIUM CHLORIDE ER 10 MEQ TAB.ER.PRT PO SCH (07:59)
[2020-07-03] MEDS: lisinopriL 10 MG TAB PO SCH (07:59)
[2020-07-03] MEDS: metFORMIN 500 MG TAB PO SCH ×2 (07:59→17:39)
[2020-07-03] MEDS: allopurinoL 300 MG TAB PO SCH (07:59)
[2020-07-03] MEDS: GABAPENTIN 400 MG CAP PO SCH ×3 (08:00→21:38)
[2020-07-03] MEDS: LITHIUM CARBONATE 150 MG CAP PO SCH ×2 (08:39→21:34)
--- NOTE | 2020-07-03 12:11 | P.PN ---
Progress Note - Text Progress Note Date: 07/03/20 Interval History: Patient was seen taking part in activities group and was directable and agreea ble to speak with aligner typewriter. Patient appears to be more cooperative today during conversation. He claims that he is trying to participate more in groups and spoke about some of his coping skills. He claims that he feels he is drinking more water on the unit. He states that he likes his medications though where they're at right now. He spoke once again about potential discharge. He was more directable today during conversation. He continues to state that he is gradually improving in terms of his depression and anxiety and his suicidal thoughts. He states that yesterday he needed and Ativan because he was upset that his sister asked him what was wrong with him and why he comes to the hospital frequently. He claims that he is sleeping better at nighttime and requested to have his melatonin discontinued. He states that he did not have any nightmares last night. At this time patient denies any homical ideations, intent or plan. He is currently denying any suicidal or homicidal ideations intent or plan. Patient denies any auditory, visual hallucinations and denies any paranoia or delusions. Patient denies any side effects from the medications and has been compliant with meds. Mental Status Exam: General Appearance: Patient appears to be obese, stated age is alert, directable, and attempts to be cooperative. Hygiene and grooming improving. Improving eye contact Behavior: Patient is calmly seated without any agitated behavior. Speech: Patient's speech is fluent and nonpressured. Mood/Affect: Mood is depressed however improving mildly, affect is congruent and constricted. Suicidality/Homicidality: Patient denies having any suicidal or homicidal ideation intent or plan. Perceptions: Patient denies any visual hallucinations and denies any auditory hallucinations Though content/process: Patient is more goal oriented today. More positive outlook. Denying any paranoia or delusions. Memory and concentration: AOX3, grossly intact for the purposes of this session Judgment and insight: Poor, Improving mildly Assessment Major depressive disorder recurrent severe without psychotic features Borderline personality disorder cocaine abuse diabetes mellitus Plan: -Patient continues to meet criteria for inpatient psychiatric admission for symptom stabilization and safety. Patient has signed adult voluntary form and medication consent and was placed in patient's chart. -Medications: Continue with Cymbalta 60 mg bid for mood/anxiety/pain, BuSpar 20 mg twice a day for anxiety. Continue with trazodone 200 mg daily at bedtime for insomnia/mood. Continue with melatonin 5 mg daily at bedtime for insomnia. continue with lithium 450 mg twice a day for mood stabilization/suicidal ideations. continue with Geodon 20 mg daily at bedtime for mood stabilization -Alcalde level on 07/03/2020 was 0.9. Due to the increase in patients lithium and increased water consumption will check another lithium level on monday morning and check BMP, kidney function aswell. -When necessary Ativan and Haldol for agitation/aggression. -NRT - not needed as patient does not smoke -SW on board for discharge planning. Encouraged the patient to participate in milieu. Will continue titrating patient's medications. likely discharge monday. Patient will be enrolled in [facility] program through [facility].
[2020-07-03 12:46] LABS: Glucose,Whole Blood 193 mg/dL (75-99)
[2020-07-03 17:36] LABS: Glucose,Whole Blood 92 mg/dL (75-99)
[2020-07-03 19:55] LABS: Glucose,Whole Blood 78 mg/dL (75-99)
[2020-07-03] MEDS: ATORVASTATIN 20 MG TAB PO SCH (21:32)
[2020-07-03] MEDS: traZODone HCL 100 MG TAB PO SCH (21:34)
[2020-07-03] MEDS: ZIPRASIDONE 20 MG CAP PO SCH (21:35)
[2020-07-04 07:52] LABS: Glucose,Whole Blood 122 mg/dL (75-99)
[2020-07-04] MEDS: INSULIN ASPART (NovoLOG) 100 UNIT/ML VIAL SQ SCH ×7 (08:03→20:21)
[2020-07-04] MEDS: INSULIN DETEMIR (LEVEMIR) 100 UNIT/ML SYR SQ SCH ×2 (08:04→21:10)
[2020-07-04] MEDS: LITHIUM CARBONATE 150 MG CAP PO SCH ×2 (08:05→21:10)
[2020-07-04] MEDS: INDOMETHACIN 25 MG CAP PO SCH ×2 (08:05→21:10)
[2020-07-04] MEDS: GABAPENTIN 400 MG CAP PO SCH ×3 (08:07→21:16)
[2020-07-04] MEDS: busPIRone HCl 10 MG TAB PO SCH ×2 (08:07→21:12)
[2020-07-04] MEDS: metFORMIN 500 MG TAB PO SCH ×2 (08:07→17:39)
[2020-07-04] MEDS: DULoxetine HCL 60 MG CAPSULE.DR PO SCH ×2 (08:08→21:12)
[2020-07-04] MEDS: FAMOTIDINE 20 MG TAB PO SCH ×2 (08:08→21:12)
[2020-07-04] MEDS: allopurinoL 300 MG TAB PO SCH (08:08)
[2020-07-04] MEDS: POTASSIUM CHLORIDE ER 10 MEQ TAB.ER.PRT PO SCH (08:08)
[2020-07-04] MEDS: ZINC SULFATE 220 MG CAP PO SCH (08:08)
[2020-07-04] MEDS: lisinopriL 10 MG TAB PO SCH (08:08)
--- NOTE | 2020-07-04 11:55 | P.PN ---
Progress Note - Text Progress Note Date: 07/04/20 Interval History: Patient was seen in the room and was directable and agreeable to speak with handbook writer. Patient is a 49 years old and was admitted to Hospital with depression. He was having the suicidal thoughts and had a plan. He went to [facility] and was sent here from there. He stated he suffers from depression and has battled with depression for a long period of time. This patient is a morbidly obese and stated that his lithium levels were off and his kidney functions are being assessed.. At this time patient denies any suicidal or homical ideations, intent or plan. Patient denies any auditory, visual hallucinations and denies any paranoia or delusions. Patient denies any side effects from the medications and has been compliant with meds. Mental Status Exam: General Appearance: Patient appears to be stated age is alert, directable, and cooperative. Behavior: Patient is calmly seated without any agitated behavior. Speech: Patient's speech is fluent and nonpressured. Mood/Affect: Mood is improving mildly, affect is congruent and constricted. Suicidality/Homicidality: Patient denies having any suicidal or homicidal ideation intent or plan. Perceptions: Patient denies any visual hallucinations and denies any auditory hallucinations Though content/process: There is no evidence of any delusional thought content and thought process is linear and goal-directed. Memory and concentration: AOX3, grossly intact for the purposes of this session Judgment and insight: Improving mildly Assessment This patient is a not stable psychiatrically as yet and his mood and medications need to be monitored. Side effects of medication need to be monitored and evaluated. Plan: -Patient continues to meet criteria for inpatient psychiatric admission for symptom stabilization and safety. -Medications: Continue medications as before. -When necessary Ativan and Haldol for agitation/aggression. -SW on board for discharge planning. Encouraged the patient to participate in milieu.
[2020-07-04 12:39] LABS: Glucose,Whole Blood 193 mg/dL (75-99)
[2020-07-04 17:36] LABS: Glucose,Whole Blood 112 mg/dL (75-99)
[2020-07-04 20:15] LABS: Glucose,Whole Blood 138 mg/dL (75-99)
[2020-07-04] MEDS: ZIPRASIDONE 20 MG CAP PO SCH (21:11)
[2020-07-04] MEDS: traZODone HCL 100 MG TAB PO SCH (21:11)
[2020-07-04] MEDS: ATORVASTATIN 20 MG TAB PO SCH (21:12)
[2020-07-05] MEDS: INSULIN ASPART (NovoLOG) 100 UNIT/ML VIAL SQ SCH ×7 (07:46→21:06)
[2020-07-05 07:47] LABS: Glucose,Whole Blood 123 mg/dL (75-99)
[2020-07-05] MEDS: metFORMIN 500 MG TAB PO SCH ×2 (07:47→17:58)
[2020-07-05] MEDS: allopurinoL 300 MG TAB PO SCH (07:47)
[2020-07-05] MEDS: INDOMETHACIN 25 MG CAP PO SCH ×2 (07:47→22:13)
[2020-07-05] MEDS: ZINC SULFATE 220 MG CAP PO SCH (07:47)
[2020-07-05] MEDS: LITHIUM CARBONATE 150 MG CAP PO SCH ×2 (07:47→22:12)
[2020-07-05] MEDS: busPIRone HCl 10 MG TAB PO SCH ×2 (07:48→22:13)
[2020-07-05] MEDS: lisinopriL 10 MG TAB PO SCH (07:48)
[2020-07-05] MEDS: INSULIN DETEMIR (LEVEMIR) 100 UNIT/ML SYR SQ SCH ×2 (07:49→21:03)
[2020-07-05] MEDS: POTASSIUM CHLORIDE ER 10 MEQ TAB.ER.PRT PO SCH (07:49)
[2020-07-05] MEDS: FAMOTIDINE 20 MG TAB PO SCH ×2 (07:49→22:13)
[2020-07-05] MEDS: GABAPENTIN 400 MG CAP PO SCH ×3 (07:50→22:14)
[2020-07-05] MEDS: DULoxetine HCL 60 MG CAPSULE.DR PO SCH ×2 (07:54→22:12)
[2020-07-05 12:41] LABS: Glucose,Whole Blood 143 mg/dL (75-99)
--- NOTE | 2020-07-05 12:57 | P.PN ---
Progress Note - Text Progress Note Date: 07/05/20 Interval History: Patient was seen in his room and was directable and agreeable to speak with blog writer. This 49-year-old morbidly obese male was admitted to Hospital because of severe depression. He stated he is feeling slightly better. He stated he slept good. He stated he has had insomnia at home. His blood level will be drawn tomorrow. At this time patient denies any suicidal or homical ideations, intent or plan. Patient denies any auditory, visual hallucinations and denies any paranoia or delusions. Patient denies any side effects from the medications and has been compliant with meds. Mental Status Exam: General Appearance: Patient appears to be stated age is alert, directable, and cooperative. Behavior: Patient is calmly seated without any agitated behavior. Speech: Patient's speech is fluent and nonpressured. Mood/Affect: Mood is improving mildly, affect is congruent and constricted. Suicidality/Homicidality: Patient denies having any suicidal or homicidal ideation intent or plan. Perceptions: Patient denies any visual hallucinations and denies any auditory hallucinations Though content/process: There is no evidence of any delusional thought content and thought process is linear and goal-directed. Memory and concentration: AOX3, grossly intact for the purposes of this session Judgment and insight: Improving mildly Assessment Patient to symptoms of depression are improving. His blood level for lithium and needs to be drawn. Plan: -Patient continues to meet criteria for inpatient psychiatric admission for symptom stabilization and safety. -When necessary Ativan and Haldol for agitation/aggression. -SW on board for discharge planning. Encouraged the patient to participate in milieu.
[2020-07-05 17:38] LABS: Glucose,Whole Blood 95 mg/dL (75-99)
[2020-07-05 20:31] LABS: Glucose,Whole Blood 133 mg/dL (75-99)
[2020-07-05] MEDS: ZIPRASIDONE 20 MG CAP PO SCH (22:12)
[2020-07-05] MEDS: traZODone HCL 100 MG TAB PO SCH (22:13)
[2020-07-05] MEDS: ATORVASTATIN 20 MG TAB PO SCH (22:13)
[2020-07-06 07:11] LABS: African American GFR (CKD) >90 (>60 ml/min/1.73 sqM); Anion Gap 4 mmol/L; Blood Urea Nitrogen 15 mg/dL (9-20); Calcium 9.5 mg/dL (8.4-10.2); Carbon Dioxide 32 mmol/L (22-30); Chloride 102 mmol/L (98-107); Glucose 120 mg/dL (74-99); Non-African American GFR(CKD) >90 (>60 ml/min/1.73 sqM); Potassium 4.5 mmol/L (3.5-5.1); Sodium 138 mmol/L (137-145)
[2020-07-06 07:46] LABS: Glucose,Whole Blood 120 mg/dL (75-99)
[2020-07-06] MEDS: INSULIN DETEMIR (LEVEMIR) 100 UNIT/ML SYR SQ SCH (08:03)
[2020-07-06] MEDS: INSULIN ASPART (NovoLOG) 100 UNIT/ML VIAL SQ SCH ×4 (08:03→13:12)
[2020-07-06] MEDS: metFORMIN 500 MG TAB PO SCH (08:04)
[2020-07-06] MEDS: DULoxetine HCL 60 MG CAPSULE.DR PO SCH (08:05)
[2020-07-06] MEDS: allopurinoL 300 MG TAB PO SCH (08:05)
[2020-07-06] MEDS: busPIRone HCl 10 MG TAB PO SCH (08:05)
[2020-07-06] MEDS: INDOMETHACIN 25 MG CAP PO SCH (08:06)
[2020-07-06] MEDS: GABAPENTIN 400 MG CAP PO SCH (08:06)
[2020-07-06] MEDS: FAMOTIDINE 20 MG TAB PO SCH (08:06)
[2020-07-06] MEDS: LITHIUM CARBONATE 150 MG CAP PO SCH (08:07)
[2020-07-06] MEDS: POTASSIUM CHLORIDE ER 10 MEQ TAB.ER.PRT PO SCH (08:07)
[2020-07-06] MEDS: lisinopriL 10 MG TAB PO SCH (08:07)
[2020-07-06] MEDS: ZINC SULFATE 220 MG CAP PO SCH (08:08)
[2020-07-06 08:14] VITALS: BP 145/64; PULSE 87; RESP 20; TEMP 97.7
--- NOTE | 2020-07-06 10:16 | P.DS ---
Providers Date of admission: 06/26/20 05:42 Expected date of discharge: 07/06/20 Attending physician: Sukhwinder Loza MD Consults: 06/26/20 05:53 Consult Physician Routine Consulting Provider: Dillon Magana Consult Reason/Comments: For H & P for Medical Follow Up Do you want consulting provider notified?: Yes, Notify in am Primary care physician: Rachana Harper - Discharge Diagnosis(es) (1) Major depressive disorder without psychotic features Current Visit: Yes Status: Acute Priority: High (2) Borderline personality disorder Current Visit: Yes Status: Acute Priority: Medium (3) Cocaine abuse Current Visit: Yes Status: Acute Priority: Medium (4) Diabetes mellitus Current Visit: Yes Status: Acute Priority: Low Hospital Course: Admission HPI: Admission note was completed by Dr. Aleman "the patient is a 49-year-old male. He resides independently. She presented to the ED for evaluation. Patient was depressed. He had suicide thinking. He had stopped taking his medications including diabetic medications for a number of days in the past week. He had also relapsed on cocaine. The patient was the primary source of information, though he only gave limited information about his current situation and past history. She has had long-term problems with psychiatric issues. He has had a number of admissions in the past. He was last admitted to this facility in 04/02/2019. At that time he was admitted for depression. He had a stress and grief issues relating to the murder of a cousin and the former it support technician of his father passing away. He had stopped taking medications including insulin at that time. He has had follow-up through [facility] and has been followed by Dr. Ramirez. Her note of 05/13/2020 included the following "Maxwell has 1 year clean as of April 22. He is still having problems sleeping and is often up for 3 days at a time. He said Dr. Reich has stopped prescribing gabapentin and Dr. Graff has stopped prescribing [place] although the last prescription was filled 2 days ago for 28 tablets". He is diagnosed with major depression, recurrent, severe cocaine use disorder, posttraumatic stress disorder, cannabis use disorder, opioid use disorder. All substance abuse issues were noted to be active problems. A follow-up note of Dr. Ramirez on 06/18/20 is as follows: "Maxwell has been sleeping better since stopping Wellbut rin and said that Cymbalta is helping his depression and anxiety. He is maintaining his sobriety and says that things are going well. Also his diabetes is easier to manage since he is sleeping better. He denies complaints and is not seeking any other changes. Current psychotropic medications include Wellbutrin being discontinued as of 06/18. He was prescribed Cymbalta 60 mg a day, melatonin 5 mg a day, BuSpar 10 mg twice a day. It is noted that the patient said that he thinks he needs lithium. It is noted that he had been previously on lithium 300 mg 3 times a day. This was discontinued on 12/18/2019. The patient said the reason it was discontinued his that he was doing very well and Dr. Ramirez said he did not needed. It is noted that during the interview the patient was very distressed. He was insistent about various issues with his medications. He was adamant about the idea that Cymbalta was not helping and he should be taken he said that BuSpar was helping. He believed he should be started on lithium. He was vague about how much cocaine he may have used. His urine drug screen was positive for cocaine dependence he said that he just recently relapsed using a limited amount of cocaine. He reports that he has been sleeping poorly. He has loss of motivation, energy and interest. He has been depressed and anxious. He was vague about any particular precipitating factors. He indicated that he was taking medications consistently. He was vague about whether he has hallucinations or delusions. He is admitted for further evaluation " Hospital course: Upon admission to the unit patient was initially depressed and suicidal. Patient was however directable and agreeable to commence treatment and signed adult voluntary form. Patient got along well with other patients on the unit and followed unit protocol. Patient was compliant with the medications and denied any side effects throughout hospital course. Patient was started on Cymbalta and increased to a dose of 60 mg twice a day for mood/anxiety. Patient was also started on BuSpar and titrated up to dose of 20 mg twice a day for anxiety. He was also started on trazodone and titrate up the dose of 200 mg daily at bedtime for insomnia/mood. Patient was also started on melatonin 5 mg daily at bedtime and lithium was increased to a dose of 450 mg twice a day for mood stabilization/suicidal ideations. Patient also was started on Geodon 20 mg daily at bedtime for mood stabilization. Patient had a lithium level completed on 07/03 which was 0.9 and once again on 07/06 which was 1.0. Patient spoke of his stressors and engaged in therapy both group and individual. Patient was also seen by medical team for history and physical exam. Throughout the course of the hospitalization patient gradually improved with regards to mood, suicidal ideations, anxiety, sleep and became more future oriented with improved insight and judgment. On the day of discharge patient denied any suicidal or homicidal ideations intent or plan denied any auditory or visual hallucinations. Patient endorsed wanting to live for his health and his future. The patient denied any access to guns or weapons. Patient denied any paranoia and did not endorse any delusions. Patient does have a significant history of substance abuse and was counseled on abstaining from all substances including alcohol and marijuana. Patient elected to do outpatient substance use treatment program through [facility]. Patient was seen by his sample builder on the unit prior to discharge will be enrolling patient into the next step program for closer monitoring after discharge through [facility]. Patient was also counseled on the medications and need for regular compliance and was encouraged to follow-up with their outpatient appointment for mental health and also for primary care. Mental status exam: General Appearance: Patient appears to be obese, stated age is alert, pleasant, and cooperative. Patient is in no acute distress and has improved hygiene and grooming Behavior: Patient is calmly seated without any agitated behavior. Speech: Patient's speech is fluent and nonpressured. Mood/Affect: Patient reports their mood is "better", affect is congruent and euthymic. Suicidality/Homicidality: Patient denies having any suicidal or homicidal ideation intent or plan. Perceptions: Patient denies any auditory or visual hallucinations. Though content/process: There is no evidence of any delusional thought content and thought process is linear and goal-directed. more future oriented Memory and concentration: AOX3, grossly intact for the purposes of this session. Can spell "WORLD" backwards correctly. Judgment and insight: chronically poor, however has improved with guarded prognosis Impression: Major depressive disorder, recurrent, severe without psychotic features Borderline personality disorder Cocaine abuse Diabetes mellitus Plan: -Continue with discharge today as patient has improved and stabilized psychiatrically and is not currently an imminent threat to himself and/or others. Patient will remain at chronically elevated risk for harm to self and/or others due to his impulsivity and substance abuse. -Continue medications: Cymbalta 60 mg twice a day for mood/anxiety/pain, BuSpar 20 mg twice a day for anxiety, trazodone 200 mg daily at bedtime for insomnia/mood, melatonin 5 mg daily at bedtime for insomnia, lithium 450 mg twice a day for mood stabilization/suicidal ideations, Geodon 20 mg daily at bedtime for mood stabilization. -Patient was counseled on the need for medication compliance and appropriate follow-up at mental health and also primary care for medical issues. Patient verbalized understanding and agreed. -Social work to help arrange for patient's discharge today. Patient will be enrolled in next step program through [facility] for closer monitoring. Social work also to arrange for patients follow up appointments with [facility] for psychiatric care along with follow up with primary care provider. -Patient counseled on abstaining from recreational drugs and marijuana and alcohol. Was informed/educated on the adverse effects on their physical and mental health. Patient verbally agreed and understood. -Patient was instructed to return to the hospital or seek immediate medical care if their psychiatric or medical symptoms do worsen or reoccur. Allergies Allergy/AdvReac Type Severity Reaction Status Date / Time ibuprofen [From Motrin] Allergy Rash/Hives Verified 06/26/20 07:02 Laboratory Results WBC 10.7 k/uL (3.8-10.6) H 06/25/20: RBC 5.24 m/uL (4.30-5.90) 06/25/20 19: Hgb 15.8 gm/dL (13.0-17.5) 06/25/20 19: Hct 47.0 % (39.0-53.0) 06/25/20: MCV 89.7 fL (80.0-100.0) 06/25/20: MCH 30.1 pg (25.0-35.0) 06/25/20 19: MCHC 33.5 g/dL (31.0-37.0) 06/25/20: RDW 13.8 % (11.5-15.5) 06/25/20: Plt Count 249 k/uL (150-450) 06/25/20 19:26 MPV 8.7 06/25/20 19:26 Neutrophils % 56 % 06/25/20 19: Lymphocytes % 31 % 06/25/20 19: Monocytes % 5 % 06/25/20 19:26 Eosinophils % 5 % 06/25/20 19: Basophils % 1 % 06/25/20 19:26 Neutrophils # 6.0 k/uL (1.3-7.7) 06/25/20 19: Lymphocytes # 3.3 k/uL (1.0-4.8) 06/25/20 19: Monocytes # 0.6 k/uL (0-1.0) 06/25/20 19: Eosinophils # 0.5 k/uL (0-0.7) 06/25/20 19: Basophils # 0.1 k/uL (0-0.2) 06/25/20 19:26 Sodium 138 mmol/L (137-145) 07/06/20 06:19 Potassium 4.5 mmol/L (3.5-5.1) 07/06/20 06:19 Chloride 102 mmol/L (98-107) 07/06/20 06:19 Carbon Dioxide 32 mmol/L (22-30) H 07/06/20 06:19 Anion Gap 4 mmol/L 07/06/20 06:19 BUN 15 mg/dL (9-20) 07/06/20 06:19 Creatinine 0.84 mg/dL (0.66-1.25) 07/06/20 06:19 Est GFR (CKD-EPI)AfAm >90 (>60 ml/min/1.73 sqM) 07/06/20 06:19 Est GFR (CKD-EPI)NonAf >90 (>60 ml/min/1.73 sqM) 07/06/20 06:19 Glucose 120 mg/dL (74-99) H 07/06/20 06:19 POC Glucose (mg/dL) 120 mg/dL (75-99) H 07/06/20 07:45 POC Glu Breading Machine Tender ANTHONY Emelina Gilman 07/06/20 07:[address] Glu mg/dL 203 06/25/20 19:26 Hemoglobin A1c 8.7 % (4.0-6.0) H 06/25/20 19:26 Calcium 9.5 mg/dL (8.4-10.2) 07/06/20 06:19 Phosphorus 4.3 mg/dL (2.5-4.5) 06/25/20 19:26 Magnesium 1.7 mg/dL (1.6-2.3) 06/25/20 19:26 Total Bilirubin 0.3 mg/dL (0.2-1.3) 06/25/20 19:26 Conjugated Bilirubin 0.0 mg/dL (0.0-0.3) 06/25/20 19:26 Unconjugated Bilirubin 0.3 mg/dL (0.0-1.1) 06/25/20 19:26 Delta Bilirubin 0.0 mg/dL (0.0-0.2) 06/25/20 19:26 AST 28 U/L (17-59) 06/25/20 19:26 ALT 24 U/L (4-49) 06/25/20 19:26 Alkaline Phosphatase 80 U/L (38-126) 06/25/20 19:26 Total Protein 6.7 g/dL (6.3-8.2) 06/25/20 19:26 Albumin 3.3 g/dL (3.5-5.0) L 06/25/20 19:26 TSH 1.870 mIU/L (0.465-4.680) 06/25/20 19:26 Urine Color Yellow 06/25/20 19:38 Urine Appearance Clear (Clear) 06/25/20 19:38 Urine pH 6.5 (5.0-8.0) 06/25/20 19:38 Ur Specific [place] 1.034 (1.001-1.035) 06/25/20 19:38 Urine Protein Negative (Negative) 06/25/20 19:38 Urine Glucose (UA) 4+ (Negative) H 06/25/20 19:38 Urine Ketones Negative (Negative) 06/25/20 19:38 Urine Blood Negative (Negative) 06/25/20 19:38 Urine Nitrite Negative (Negative) 06/25/20 19:38 Urine Bilirubin Negative (Negative) 06/25/20 19:38 Urine Urobilinogen <2.0 mg/dL (<2.0) 06/25/20 19:38 Ur Leukocyte Esterase Negative (Negative) 06/25/20 19:38 Urine Opiates Screen Not Detected (NotDetected) 06/25/20 19:50 Ur Oxycodone Screen Not Detected (NotDetected) 06/25/20 19:50 Urine Methadone Screen Not Detected (NotDetected) 06/25/20 19:50 Ur Propoxyphene Screen Not Detected (NotDetected) 06/25/20 19:50 Ur Barbiturates Screen Not Detected (NotDetected) 06/25/20 19:50 U Tricyclic Antidepress Not Detected (NotDetected) 06/25/20 19:50 Ur Phencyclidine Scrn Not Detected (NotDetected) 06/25/20 19:50 Ur Amphetamines Screen Not Detected (NotDetected) 06/25/20 19:50 U Methamphetamines Scrn Not Detected (NotDetected) 06/25/20 19:50 U Benzodiazepines Scrn Not Detected (NotDetected) 06/25/20 19:50 [place] 1.0 mmol/L 07/06/20 06:19 Urine Cocaine Screen Detected (NotDetected) H 06/25/20 19:50 U Marijuana (THC) Screen Not Detected (NotDetected) 06/25/20 19:50 Acetone, Qual Negative (Negative) 06/25/20 19:26 Coronavirus (PCR) Not Detected (Not Detectd) 06/26/20 04:40 Vital Signs Temp 97.7 F 07/06/20 08:12 Pulse 87 07/06/20 08:12 Resp 20 07/06/20 08:12 BP 145/64 07/06/20 08:12 Pulse Ox 97 06/30/20 06:00 Intake & Output 07/05/20 07/06/20 07/06/20 18:59 06:59 18:59 Weight 152.1 kg Patient Condition at Discharge: Stable Plan - Discharge Summary New Discharge Prescriptions: New busPIRone HCl [Buspar] 20 mg PO BID 30 Days tab Ziprasidone [Geodon] 20 mg PO HS 30 Days cap Insulin Detemir (Levemir) [Levemir] 80 unit SQ BID@0700,2100 syr [place] Carbonate 450 mg PO BID 30 Days cap Gabapentin [Neurontin] 400 mg PO TID cap INSULIN ASPART (NovoLOG) [NovoLOG (formulary)] 40 unit SQ AC-TID vial INSULIN ASPART (NovoLOG) [NovoLOG (formulary)] 0 unit SQ ACHS vial DULoxetine HCL [Cymbalta] 60 mg PO BID 30 Days capsule. traZODone HCL [Desyrel] 200 mg PO HS 30 Days tab Indomethacin [Indocin] 25 mg PO BID 30 Days cap Continue allopurinoL [Zyloprim] 300 mg PO DAILY tab lisinopriL [Zestril] 10 mg PO DAILY #30 tab metFORMIN HCL 1,000 mg PO BID Atorvastatin Calcium [Lipitor] 20 mg PO HS Zinc 50 mg PO DAILY Famotidine [Pepcid] 20 mg PO BID Potassium Chloride ER [K-Dur 10] 10 meq PO DAILY Ascorbic Acid [Vitamin C] 500 mg PO DAILY Cholecalciferol [Vitamin D3 (25 Mcg = 1000 Iu)] 50 mcg PO DAILY Semaglutide [Rybelsus] 3 mg PO AC-BRKFST Discontinued Insulin Aspart [NovoLOG Flexpen] 40 unit SQ AC-TID Insulin Detemir [Levemir Flextouch] 80 units SQ BID Melatonin 5 mg PO HS PRN PRN Reason: Insomnia Pantoprazole [Protonix] 40 mg PO DAILY busPIRone HCl [Buspar] 10 mg PO BID DULoxetine HCL [Cymbalta] 60 mg PO HS hydrOXYzine pamoate [Vistaril] 25 - 50 mg PO HS Indomethacin [Indocin] 25 mg PO TID PRN PRN Reason: gout Discharge Medication List allopurinoL [Zyloprim] 300 mg PO DAILY tab 01/23/18 [Rx] lisinopriL [Zestril] 10 mg PO DAILY #30 tab 10/21/19 [Rx] Atorvastatin Calcium [Lipitor] 20 mg PO HS 01/27/20 [History] metFORMIN HCL 1,000 mg PO BID 01/27/20 [History] Ascorbic Acid [Vitamin C] 500 mg PO DAILY 06/25/20 [History] Cholecalciferol [Vitamin D3 (25 Mcg = 1000 Iu)] 50 mcg PO DAILY 06/25/20 [History] Famotidine [Pepcid] 20 mg PO BID 06/25/20 [History] Potassium Chloride ER [K-Dur 10] 10 meq PO DAILY 06/25/20 [History] Semaglutide [Rybelsus] 3 mg PO AC-BRKFST 06/25/20 [History] Zinc 50 mg PO DAILY 06/25/20 [History] DULoxetine HCL [Cymbalta] 60 mg PO BID 30 Days capsule. 07/06/20 [Rx] Gabapentin [Neurontin] 400 mg PO TID cap 07/06/20 [Rx] INSULIN ASPART (NovoLOG) [NovoLOG (formulary)] 0 unit SQ ACHS vial 07/06/20 [Rx] INSULIN ASPART (NovoLOG) [NovoLOG (formulary)] 40 unit SQ AC-TID vial 07/06/20 [Rx] Indomethacin [Indocin] 25 mg PO BID 30 Days cap 07/06/20 [Rx] Insulin Detemir (Levemir) [Levemir] 80 unit SQ BID@0700,2100 syr 07/06/20 [Rx] [place]st Carbonate 450 mg PO BID 30 Days cap 07/06/20 [Rx] Ziprasidone [Geodon] 20 mg PO HS 30 Days cap 07/06/20 [Rx] busPIRone HCl [Buspar] 20 mg PO BID 30 Days tab 07/06/20 [Rx] traZODone HCL [Desyrel] 200 mg PO HS 30 Days tab 07/06/20 [Rx] Follow up Appointment(s)/Referral(s): [facility] [Outside] - 07/02/20 12:30 pm (07-02-20 @ 12:[address] Ramirez at [facility] 07-03-20 @ 11:00 with Alexi Salamanca at [facility] office) Meredith Reich MD [Primary Care Provider] - 1-2 days Activity/Diet/Wound Care/Special Instructions: Patient to follow up with Coating Machine Feeder regarding wound on Left foot. Activity and diet as tolerated. Avoid the use of street drugs and alcohol. Take all medications as prescribed. When you are in need of refills on your medications please contact your medical provider and/or outpatient psychiatrist to have this done. Please go to scheduled outpatient appointment for aftercare treatment. If symptoms return or become worse, call the crisis line at and/or go to the nearest emergency room for evaluation. Discharge Disposition: HOME SELF-CARE
[2020-07-06 13:01] LABS: Glucose,Whole Blood 119 mg/dL (75-99)
== END 2020-07-06 14:19 | disposition home or self-care (01) | DRG 885 ==
LOC: EC 16:50 → EEVIPCON 16:50 → 3MHU 06-26 05:42
PROVIDERS: ADMIT Psychiatry & Neurology Psychiatry; ATTEND Psychiatry & Neurology Psychiatry
DX: F33.2 Major depressive disorder, recurrent severe without psychotic features (principal); Z68.43 Body mass index [BMI] 50.0-59.9, adult; T74.21XA Adult sexual abuse, confirmed, initial encounter; R45.851 Suicidal ideations; L89.892 Pressure ulcer of other site, stage 2; E11.42 Type 2 diabetes mellitus with diabetic polyneuropathy; E11.65 Type 2 diabetes mellitus with hyperglycemia; E66.01 Morbid (severe) obesity due to excess calories; F60.3 Borderline personality disorder; F14.21 Cocaine dependence, in remission; F11.10 Opioid abuse, uncomplicated; Z79.4 Long term (current) use of insulin; Z20.822 Contact with and (suspected) exposure to COVID-19; I10 Essential (primary) hypertension; F12.10 Cannabis abuse, uncomplicated; G47.30 Sleep apnea, unspecified; G47.00 Insomnia, unspecified; F43.0 Acute stress reaction; F43.10 Post-traumatic stress disorder, unspecified; E78.5 Hyperlipidemia, unspecified; G56.00 Carpal tunnel syndrome, unspecified upper limb; M10.9 Gout, unspecified; M21.962 Unspecified acquired deformity of left lower leg; M19.90 Unspecified osteoarthritis, unspecified site; Z79.899 Other long term (current) drug therapy; Z87.828 Personal history of other (healed) physical injury and trauma; Z87.39 Personal history of other diseases of the musculoskeletal system and connective tissue; Z86.69 Personal history of other diseases of the nervous system and sense organs; Z86.19 Personal history of other infectious and parasitic diseases; Z98.890 Other specified postprocedural states; Z88.6 Allergy status to analgesic agent; Z83.3 Family history of diabetes mellitus; Z82.3 Family history of stroke; Z82.49 Family history of ischemic heart disease and other diseases of the circulatory system; Z80.9 Family history of malignant neoplasm, unspecified
CPT/HCPCS: 36415; 80048; 80053; 80178; 80306; 81003; 82009; 82075; 82248; 83036; 83735; 84100; 84443; 85025; 87635; 93005; 99285

== ENCOUNTER 2020-09-06 11:57 | Inpatient (IN) | payer MEDICARE, OTHER ==
[2020-09-06] MEDS ORDERED: SODIUM CHLORIDE 0.9% 500 ML 500 ML IV ONE (12:19)
[2020-09-06] MEDS ORDERED: VANCOMYCIN IV PER PHARMACY 1 EACH MISC MISCELLANE PRN (12:20)
[2020-09-06] MEDS ORDERED: PIPERACILLIN-TAZOBACTAM 3.375 GM in SODIUM CHLORIDE 0.9% 100 ML IVPB STA (12:20)
[2020-09-06] MEDS ORDERED: VANCOMYCIN 2,250 MG in SODIUM CHLORIDE 0.9% 500 ML 500 ML IVPB STA (12:22)
--- NOTE | 2020-09-06 12:26 | ED ---
General Adult HPI - General Chief complaint: Extremity Problem,Nontraumatic Stated complaint: diabetic, foot discoloration Source: patient, RN notes reviewed, old records reviewed Mode of arrival: wheelchair Limitations: physical limitation - History of Present Illness Initial comments: 39-year-old male history of diabetes presenting with left foot pain and swelling. Patient had been following with his utility operator regarding a chronic wound at the base of the first digit left foot. Over the past 4 days he's developed increased pain, erythema and drainage from the site at the base of the first and second toe with erythema into the leg. He's had no fever. No chest pain or dyspnea. Patient has not been on antibiotics as an outpatient. - Related Data Home Medications Medication Instructions Recorded Confirmed Atorvastatin Calcium [Lipitor] 20 mg PO HS 01/27/20 09/06/20 metFORMIN HCL 1,000 mg PO BID 01/27/20 09/06/20 Famotidine [Pepcid] 20 mg PO BID 06/25/20 09/06/20 Potassium Chloride ER [K-Dur 10] 10 meq PO DAILY 06/25/20 09/06/20 Semaglutide [Rybelsus] 3 mg PO DAILY@0700 06/25/20 09/06/20 Gabapentin 600 mg PO TID 09/06/20 09/06/20 HYDROcodone/APAP 5-325MG [[place] 1 tab PO QID PRN 09/06/20 09/06/20 5-325] Indomethacin [Indocin] 25 mg PO TID 09/06/20 09/06/20 Meloxicam [Mobic] 15 mg PO DAILY 09/06/20 09/06/20 Naloxone HCl [Narcan] 4 mg NASAL ONCE PRN 09/06/20 09/06/20 Pantoprazole Sodium [Protonix] 40 mg PO DAILY 09/06/20 09/06/20 Ziprasidone [Geodon] 40 mg PO HS 09/06/20 09/06/20 busPIRone HCL [Buspar] 30 mg PO BID 09/06/20 09/06/20 hydrOXYzine pamoate [hydrOXYzine 25 mg PO BID 09/06/20 09/06/20 PAMOATE] Previous Rx's Medication Instructions Recorded allopurinoL [Zyloprim] 300 mg PO DAILY tab 01/23/18 lisinopriL [Zestril] 10 mg PO DAILY #30 tab 10/21/19 DULoxetine HCL [Cymbalta] 60 mg PO BID 30 Days capsule. 07/06/20 INSULIN ASPART (NovoLOG) [NovoLOG 40 unit SQ AC-TID vial 07/06/20 (formulary)] Insulin Detemir (Levemir) [Levemir] 80 unit SQ BID@0700,2100 syr 07/06/20 [place] Carbonate 450 mg PO BID 30 Days cap 07/06/20 traZODone HCL [Desyrel] 200 mg PO HS 30 Days tab 07/06/20 Allergies Allergy/AdvReac Type Severity Reaction Status Date / Time ibuprofen [From Motrin] Allergy Rash/Hives Verified 09/06/20 12:37 Review of Systems ROS Statement: Those systems with pertinent positive or pertinent negative responses have been documented in the HPI. ROS Other: All systems not noted in ROS Statement are negative. Past Medical History Past Medical History: Diabetes Mellitus, Hyperlipidemia, Hypertension, Sleep Apnea/CPAP/BIPAP Additional Past Medical History / Comment(s): neuropathy,arthritis gout, depression. Crushing injury to left foot metacarpals repaired with plate and 16 screws in past broke lt foot(sx ), myron carpal tunnel. History of Any Multi-Drug Resistant Organisms: None Reported Past Surgical History: Orthopedic Surgery Additional Past Surgical History / Comment(s): lasik eye sx ,left foot surgery. to reprair break-"has 2 plates and 16 screws" left groin boil cellulitis with excision and debriedment and NPWT performed by Dr. Estrella. Past Anesthesia/Blood Transfusion Reactions: No Reported Reaction Past Psychological History: Anxiety, Bipolar, Depression, PTSD Smoking Status: Never smoker Past Alcohol Use History: None Reported Past Drug Use History: Cocaine, Marijuana, Opiates, Prescription Drug Abuse - Past Family History Mother Family Medical History: Cancer, Diabetes Mellitus Father Family Medical History: Myocardial Infarction ([place]) Additional Family Medical History / Comment(s): stroke General Exam Limitations: physical limitation General appearance: alert, in no apparent distress Head exam: Present: atraumatic, normocephalic Eye exam: Present: normal appearance, PERRL ENT exam: Present: normal exam Neck exam: Present: normal inspection. Absent: tenderness, meningismus Respiratory exam: Present: normal lung sounds bilaterally. Absent: respiratory distress, wheezes Cardiovascular Exam: Present: regular rate, normal rhythm GI/Abdominal exam: Present: soft. Absent: distended, tenderness, guarding Extremities exam: Present: other (Patient has a bulla at the base of the first and second toe with surrounding erythema. There is some purulent drainage. Additionally there is erythema tracking up the leg to about the mid calf. Distal pulses are intact.) Neurological exam: Present: alert, oriented X3. Absent: motor sensory deficit Psychiatric exam: Present: normal affect, normal mood Skin exam: Present: warm, dry Course Vital Signs 09/06/20 12:00 Temperature 98.6 F Pulse Rate 90 Respiratory 18 Rate Blood Pressure 108/83 O2 Sat by Pulse 96 Oximetry Medical Decision Making - Medical Decision Making 49-year-old male who had presented with left foot infection over the past 4 days. Patient is afebrile, overall well-appearing. He has an open wound at the base of the left first and second toe with purulent drainage. This is sent for culture. A dressing is applied to the foot after some cleansing. He started on broad-spectrum antibiotics including Zosyn and Vanco and clindamycin. He does have a significant leukocytosis at 19.1 and is hyperglycemic. Otherwise laboratory testing is unremarkable. X-ray shows the soft tissue gas at the site of open wound and concern for possible osteomyelitis. He has been admitted for continuous IV antibiotics as well as consultation with vascular surgery. Case discussed with Dr. Magana who will admit. - Lab Data Result diagrams: 09/06/20 12:19 09/06/20 12:19 Lab Results 09/06/20 09/06/20 09/06/20 Range/Units 12:19 12:19 12:19 WBC 19.1 H (3.8-10.6) k/uL RBC 5.04 (4.30-5.90) m/uL Hgb 15.7 (13.0-17.5) gm/dL Hct 46.0 (39.0-53.0) % MCV 91.4 (80.0-100.0) fL MCH 31.2 (25.0-35.0) pg MCHC 34.1 (31.0-37.0) g/dL RDW 13.4 (11.5-15.5) % Plt Count 243 (150-450) k/uL MPV 9.3 Neutrophils % 77 % Lymphocytes % 13 % Monocytes % 6 % Eosinophils % 2 % Basophils % 1 % Neutrophils # 14.7 H (1.3-7.7) k/uL Lymphocytes # 2.5 (1.0-4.8) k/uL Monocytes # 1.2 H (0-1.0) k/uL Eosinophils # 0.4 (0-0.7) k/uL Basophils # 0.1 (0-0.2) k/uL PT (9.0-12.0) sec INR (<1.2) APTT (22.0-30.0) sec Sodium 134 L (137-145) mmol/L Potassium 4.3 (3.5-5.1) mmol/L Chloride 101 (98-107) mmol/L Carbon Dioxide 25 (22-30) mmol/L Anion Gap 8 mmol/L BUN 14 (9-20) mg/dL Creatinine 0.60 L (0.66-1.25) mg/dL Est GFR (CKD-EPI)AfAm >90 (>60 ml/min/1.73 sqM) Est GFR (CKD-EPI)NonAf >90 (>60 ml/min/1.73 sqM) Glucose 346 H (74-99) mg/dL Plasma Lactic Acid Nicho 1.7 (0.7-2.0) mmol/L Calcium 8.3 L (8.4-10.2) mg/dL Total Bilirubin 1.2 (0.2-1.3) mg/dL AST 40 (17-59) U/L ALT 30 (4-49) U/L Alkaline Phosphatase 98 (38-126) U/L Total Protein 6.9 (6.3-8.2) g/dL Albumin 3.4 L (3.5-5.0) g/dL 09/06/20 Range/Units 12:19 WBC (3.8-10.6) k/uL RBC (4.30-5.90) m/uL Hgb (13.0-17.5) gm/dL Hct (39.0-53.0) % MCV (80.0-100.0) fL MCH (25.0-35.0) pg MCHC (31.0-37.0) g/dL RDW (11.5-15.5) % Plt Count (150-450) k/uL MPV Neutrophils % % Lymphocytes % % Monocytes % % Eosinophils % % Basophils % % Neutrophils # (1.3-7.7) k/uL Lymphocytes # (1.0-4.8) k/uL Monocytes # (0-1.0) k/uL Eosinophils # (0-0.7) k/uL Basophils # (0-0.2) k/uL PT 10.7 (9.0-12.0) sec INR 1.0 (<1.2) APTT 23.4 (22.0-30.0) sec Sodium (137-145) mmol/L Potassium (3.5-5.1) mmol/L Chloride (98-107) mmol/L Carbon Dioxide (22-30) mmol/L Anion Gap mmol/L BUN (9-20) mg/dL Creatinine (0.66-1.25) mg/dL Est GFR (CKD-EPI)AfAm (>60 ml/min/1.73 sqM) Est GFR (CKD-EPI)NonAf (>60 ml/min/1.73 sqM) Glucose (74-99) mg/dL Plasma Lactic Acid Nicho (0.7-2.0) mmol/L Calcium (8.4-10.2) mg/dL Total Bilirubin (0.2-1.3) mg/dL AST (17-59) U/L ALT (4-49) U/L Alkaline Phosphatase (38-126) U/L Total Protein (6.3-8.2) g/dL Albumin (3.5-5.0) g/dL Disposition Clinical Impression: Diabetes mellitus, Diabetic foot infection, Cellulitis Disposition: ADMITTED IP TO THIS [facility] Condition: Stable Is patient prescribed a controlled substance at d/c from ED?: No Referrals: Marisol Patel DO [Primary Care Provider] - 1-2 days Decision to Admit Reason: Admit from EC Decision Date: 09/06/20 Decision Time: 13:34
[2020-09-06] MEDS: SODIUM CHLORIDE 0.9% 1,000 ML IV SCH ×2 (12:58→21:06)
[2020-09-06 13:03] LABS: Basophils # (A) 0.1 k/uL (0-0.2); Basophils % (A) 1 %; Eosinophils # (A) 0.4 k/uL (0-0.7); Eosinophils % (A) 2 %; HGB 15.7 gm/dL (13.0-17.5); Lymphocytes # (A) 2.5 k/uL (1.0-4.8); Lymphocytes % (A) 13 %; MCH 31.2 pg (25.0-35.0); MCHC 34.1 g/dL (31.0-37.0); MCV 91.4 fL (80.0-100.0); Mean Platelet Volume 9.3; Monocytes # (A) 1.2 k/uL (0-1.0); Monocytes % (A) 6 %; Neutrophils # (A) 14.7 k/uL (1.3-7.7); Neutrophils % (A) 77 %; Platelet Count 243 k/uL (150-450); RBC 5.04 m/uL (4.30-5.90); RDW 13.4 % (11.5-15.5); WBC 19.1 k/uL (3.8-10.6)
[2020-09-06 13:12] LABS: ALT 30 U/L (4-49); African American GFR (CKD) >90 (>60 ml/min/1.73 sqM); Albumin 3.4 g/dL (3.5-5.0); Anion Gap 8 mmol/L; Blood Urea Nitrogen 14 mg/dL (9-20); Calcium 8.3 mg/dL (8.4-10.2); Carbon Dioxide 25 mmol/L (22-30); Chloride 101 mmol/L (98-107); Glucose 346 mg/dL (74-99); Non-African American GFR(CKD) >90 (>60 ml/min/1.73 sqM); Sodium 134 mmol/L (137-145); Total Bilirubin 1.2 mg/dL (0.2-1.3); Total Protein 6.9 g/dL (6.3-8.2)
[2020-09-06 13:13] LABS: AST 40 U/L (17-59); Potassium 4.3 mmol/L (3.5-5.1)
[2020-09-06 13:14] LABS: Alkaline Phosphatase 98 U/L (38-126)
[2020-09-06 13:15] LABS: Partial Thromboplastin Time 23.4 sec (22.0-30.0); Prothrombin Time 10.7 sec (9.0-12.0)
[2020-09-06] MEDS ORDERED: INSULIN REGULAR 100 UNIT/ML VIAL (IV) IV ONE (13:26)
[2020-09-06] MEDS ORDERED: HYDROmorphone 0.5 MG/0.5 ML SYRINGE IVP STA (13:27)
--- NOTE | 2020-09-06 13:27 | XR ---
EXAMINATION TYPE: XR foot complete LT DATE OF EXAM: 09/06/2020 COMPARISON: 06/25/2020 HISTORY: Infection base of the right foot first and second digits TECHNIQUE: Three-view right foot FINDINGS: Plate and screws are present through the metatarsal cuneiform junctions of the first second and third digits. On the oblique view there is a very subtle cortical lucency along the proximal medial metaphyseal pro ximal phalanx second digit. This may be interval change. Early osteomyelitis is not excluded. Conside r 3 phase bone scan for additional evaluation. Soft tissue emphysema is evident between the first and second digits. There may be some mild joint s pace narrowing and mild subluxation of the first phalanx on the first metatarsal. Small calcaneal eveline l spurs are present. IMPRESSION: 1. Soft tissue infection between the first and second digits includes some emphysematous change. 2. Very subtle cortical erosion of the medial proximal second phalanx may be present. Early osteomyel itis may be present. Consider 3 phase bone scan for confirmation.
[2020-09-06] MEDS ORDERED: NALOXONE 0.4 MG/ML 1 ML VIAL IV PRN (13:29)
[2020-09-06] MEDS ORDERED: CLINDAMYCIN 600 MG in DEXTROSE 5% IN WATER 50 ML IVPB STA ×2 (13:29)
[2020-09-06] MEDS ORDERED: ACETAMINOPHEN TAB 325 MG TAB PO PRN (13:29)
[2020-09-06 16:42] LABS: Glucose,Whole Blood 262 mg/dL (75-99)
--- NOTE | 2020-09-06 16:50 | P.GSCN ---
History of Present Illness Consult date: 09/06/20 History of present illness: Maxwell is a 49-year-old diabetic male who has had a plantar wound on his left foot followed with a stringer machine tender for a long time. He states that in the recent past the stringer machine tender's is able to heal the wound bed in the past few days he did having increasing pain and erythema with some drainage of the foot. Overall otherwise he feels well he denies a chest pains or shortness of breath. Denies any fevers at home. Past Medical History Past Medical History: Diabetes Mellitus, Hyperlipidemia, Hypertension, Sleep Apnea/CPAP/BIPAP Additional Past Medical History / Comment(s): neuropathy,arthritis gout, depression. Crushing injury to left foot metacarpals repaired with plate and 16 screws in past broke lt foot(sx ), myron carpal tunnel. History of Any Multi-Drug Resistant Organisms: None Reported Past Surgical History: Orthopedic Surgery Additional Past Surgical History / Comment(s): lasik eye sx ,left foot surgery. to reprair break-"has 2 plates and 16 screws" left groin boil cellulitis with excision and debriedment and NPWT performed by Dr. Estrella. Past Anesthesia/Blood Transfusion Reactions: No Reported Reaction Past Psychological History: Anxiety, Bipolar, Depression, PTSD Smoking Status: Never smoker Past Alcohol Use History: None Reported Additional Past Alcohol Use History / Comment(s): "haven't drank since New '2018". Past Drug Use History: Cocaine, Marijuana, Opiates, Prescription Drug Abuse Additional Drug Use History / Comment(s): crack cocaine. stated quit all drug use 2016 used crack cocaine today (day of admission 01-22-2019 - Past Family History Mother Family Medical History: Cancer, Diabetes Mellitus Father Family Medical History: Myocardial Infarction ([place]) Additional Family Medical History / Comment(s): stroke Medications and Allergies Home Medications Medication Instructions Recorded Confirmed Type allopurinoL [Zyloprim] 300 mg PO DAILY tab 01/23/18 09/06/20 Rx lisinopriL [Zestril] 10 mg PO DAILY #30 tab 10/21/19 09/06/20 Rx Atorvastatin Calcium [Lipitor] 20 mg PO HS 01/27/20 09/06/20 History metFORMIN HCL 1,000 mg PO BID 01/27/20 09/06/20 History Famotidine [Pepcid] 20 mg PO BID 06/25/20 09/06/20 History Potassium Chloride ER [K-Dur 10] 10 meq PO DAILY 06/25/20 09/06/20 History Semaglutide [Rybelsus] 3 mg PO DAILY@0700 06/25/20 09/06/20 History DULoxetine HCL [Cymbalta] 60 mg PO BID 30 Days capsule. 07/06/20 09/06/20 Rx INSULIN ASPART (NovoLOG) [NovoLOG 40 unit SQ AC-TID vial 07/06/20 09/06/20 Rx (formulary)] Insulin Detemir (Levemir) [Levemir] 80 unit SQ BID@0700,2100 syr 07/06/20 09/06/20 Rx [place] Carbonate 450 mg PO BID 30 Days cap 07/06/20 09/06/20 Rx traZODone HCL [Desyrel] 200 mg PO HS 30 Days tab 07/06/20 09/06/20 Rx Gabapentin 600 mg PO TID 09/06/20 09/06/20 History HYDROcodone/APAP 5-325MG [[place] 1 tab PO QID PRN 09/06/20 09/06/20 History 5-325] Indomethacin [Indocin] 25 mg PO TID 09/06/20 09/06/20 History Meloxicam [Mobic] 15 mg PO DAILY 09/06/20 09/06/20 History Naloxone HCl [Narcan] 4 mg NASAL ONCE PRN 09/06/20 09/06/20 History Pantoprazole Sodium [Protonix] 40 mg PO DAILY 09/06/20 09/06/20 History Ziprasidone [Geodon] 40 mg PO HS 09/06/20 09/06/20 History busPIRone HCL [Buspar] 30 mg PO BID 09/06/20 09/06/20 History hydrOXYzine pamoate [hydrOXYzine 25 mg PO BID 09/06/20 09/06/20 History PAMOATE] Allergies Allergy/AdvReac Type Severity Reaction Status Date / Time ibuprofen [From Motrin] Allergy Rash/Hives Verified 09/06/20 12:37 Surgical - Exam Vital Signs Temp Pulse Resp BP Pulse Ox 98.6 F 90 18 108/83 96 09/06/20 12:00 09/06/20 12:00 09/06/20 12:00 09/06/20 12:00 09/06/20 12:00 Genitals a pleasant cooperative morbidly obese male in no acute distress. HEENT is normocephalic, atraumatic, extraocular motion intact. Heart appears regular. Lungs are clear bilaterally. Abdomen is obese, soft, nontender nondistended. Extremity show no clubbing or cyanosis. There is mild edema to the left lower extremity. There is erythema and some drainage at the base between the first and second toes. Motor sensory intact. He maintains palpable pedal pulses. Scarring to the left dorsum of the foot. Flattened affect Results X-ray reviewed - Labs 09/06/20 12:19 09/06/20 12:19 Abnormal Lab Results - Last 24 Hours (Table) 09/06/20 09/06/20 09/06/20 Range/Units 12:19 12:19 16:41 WBC 19.1 H (3.8-10.6) k/uL Neutrophils # 14.7 H (1.3-7.7) k/uL Monocytes # 1.2 H (0-1.0) k/uL Sodium 134 L (137-145) mmol/L Creatinine 0.60 L (0.66-1.25) mg/dL Glucose 346 H (74-99) mg/dL POC Glucose (mg/dL) 262 H (75-99) mg/dL Calcium 8.3 L (8.4-10.2) mg/dL Albumin 3.4 L (3.5-5.0) g/dL Diabetes panel 09/06/20 Range/Units 12:19 Sodium 134 L (137-145) mmol/L Potassium 4.3 (3.5-5.1) mmol/L Chloride 101 (98-107) mmol/L Carbon Dioxide 25 (22-30) mmol/L BUN 14 (9-20) mg/dL Creatinine 0.60 L (0.66-1.25) mg/dL Glucose 346 H (74-99) mg/dL Calcium 8.3 L (8.4-10.2) mg/dL AST 40 (17-59) U/L ALT 30 (4-49) U/L Alkaline Phosphatase 98 (38-126) U/L Total Protein 6.9 (6.3-8.2) g/dL Albumin 3.4 L (3.5-5.0) g/dL Calcium panel 09/06/20 Range/Units 12:19 Calcium 8.3 L (8.4-10.2) mg/dL Albumin 3.4 L (3.5-5.0) g/dL Pituitary panel 09/06/20 Range/Units 12:19 Sodium 134 L (137-145) mmol/L Potassium 4.3 (3.5-5.1) mmol/L Chloride 101 (98-107) mmol/L Carbon Dioxide 25 (22-30) mmol/L BUN 14 (9-20) mg/dL Creatinine 0.60 L (0.66-1.25) mg/dL Glucose 346 H (74-99) mg/dL Calcium 8.3 L (8.4-10.2) mg/dL Adrenal panel 09/06/20 Range/Units 12:19 Sodium 134 L (137-145) mmol/L Potassium 4.3 (3.5-5.1) mmol/L Chloride 101 (98-107) mmol/L Carbon Dioxide 25 (22-30) mmol/L BUN 14 (9-20) mg/dL Creatinine 0.60 L (0.66-1.25) mg/dL Glucose 346 H (74-99) mg/dL Calcium 8.3 L (8.4-10.2) mg/dL Total Bilirubin 1.2 (0.2-1.3) mg/dL AST 40 (17-59) U/L ALT 30 (4-49) U/L Alkaline Phosphatase 98 (38-126) U/L Total Protein 6.9 (6.3-8.2) g/dL Albumin 3.4 L (3.5-5.0) g/dL Assessment and Plan Assessment: Infected diabetic foot wound Diabetes History of left foot surgery Plan: The patient will need at least an incision and debridement if not possible indication of the first and possibly second toe given the area of the infection. We will plan to do this tomorrow making him nothing by mouth after midnight. IV antibiotics at this time. While I was in the room at the bedside the family was there and did start to become agitated at the [place] of possible amputation and urgency of doing so tomorrow. I did discuss with them that a second opinion can be obtained if they desire, we do plan to notify his stringer machine tender and if Dr. Andrea comes here and would like to, he may take over care and possible interventions as he may deem necessary as there is no true vascular injury or insufficiency that is apparent at this time. I will currently make him nothing by mouth after midnight and plan to go forward with operative intervention tomorrow unless further plan change per the family's request
[2020-09-06] MEDS: INSULIN ASPART (NovoLOG) 100 UNIT/ML VIAL SQ SCH ×2 (17:38→21:01)
[2020-09-06] MEDS ORDERED: NON FORMULARY DRUG (Naloxone Hcl [Narcan] 4 MG Spray) NASAL PRN (18:57)
[2020-09-06] MEDS: HEPARIN SODIUM,PORCINE/PF 5,000 UNIT/0.5 ML SYRINGE SQ SCH (20:05)
--- NOTE | 2020-09-06 20:27 | HP ---
HISTORY AND PHYSICAL DATE OF SERVICE: 09/06/2020 CHIEF COMPLAINTS: Left foot ulcer and diabetic ulcer. HISTORY OF PRESENT ILLNESS: This 49-year-old gentleman with a past history of diabetes, hypertension, hypertension, history of sleep apnea, history of peripheral neuropathy, being followed by Dr. Patel in the outpatient setting, was complaining of left foot ulcer, which has been also followed by the manometer technician for the last several days. There was also, in the past, ( ) on the left foot over the past 4 days the patient noticed erythema swelling and some severe pain of the left foot, indicated diabetes cellulitis. Patient for evaluation and treatment. There is no history of fever, rigors, chills. Foot x-ray showed soft tissue infection and early osteomyelitis also suspected. Dr. Jarquin from vascular surgery evaluated the patient. LABS: White count is elevated at 19.1, sodium is 134. PAST MEDICAL HISTORY: History of diabetes, hypertension, hyperlipidemia, sleep apnea, history of peripheral neuropathy, history of gout, depression. MEDICATIONS: Home medications are Narcan, Restoril, metformin, Zestril, hydroxyzine, BuSpar, Zyloprim, Geodon, K-Dur, Protonix, Mobic, lithium, Levemir dose and NovoLog dose. Dosage and medications reviewed. ALLERGIES: IBUPROFEN. FAMILY HISTORY: History of cancer, diabetes, stroke in the family. SOCIAL HISTORY: No history of smoking. History of cocaine abuse per chart. REVIEW OF SYSTEMS: ENT: No diminished vision. CARDIOVASCULAR: No angina or palpitations. RESPIRATION: As mentioned earlier. : No dysuria. NERVOUS SYSTEM: As mentioned earlier. ABDOMEN: As mentioned. MUSCULOSKELETAL: As mentioned earlier. CARDIOLOGY: Mentioned earlier. ENDOCRINE: As mentioned. CONSTITUTIONAL: As mentioned earlier. DERMATOLOGY: Negative. RHEUMATOLOGY: Negative. PSYCHIATRY: As mentioned earlier. PHYSICAL EXAMINATION: The patient is alert and oriented x3, pulse 60, blood pressure 110/80, respiration 18, temperature 97.8, pulse ox 98% on room air. HEENT: Conjunctivae normal. Oral mucosa moist. NECK: No jugular venous distention. No lymph node enlargement. CARDIOVASCULAR SYSTEM: S1, S2 muffled. RESPIRATION: Breath sounds diminished at the bases. No rhonchi. No crackles. ABDOMEN: Soft, obese, nontender. No mass. LEGS: Significant pain and swelling and erythema of the left foot present. Left plantar ulcer also present, which is bandaged at this time. Pulses are diminished bilaterally. Sensation also being diminished bilaterally. NERVOUS: Function normal. No motor or sensory deficit. No evidence of peripheral neuropathy. SKIN: As mentioned. JOINTS: No active deforming arthropathy. LYMPHATICS: No lymph nodes. LAB STUDIES: WBC 19.1, hemoglobin 7, lymphocytes 130. Other labs reviewed. Chest x-ray reviewed personally. ASSESSMENT: 1. Acute diabetic cellulitis of the left foot with wound, as well as possible sepsis present on admission. 2. Possible osteomyelitis of the left foot. 3. Hyponatremia. 4. Increased WBC. 5. Diabetes mellitus, type 2, uncontrolled with hyperglycemia. 6. Hypertension. 7. Hyperlipidemia. 8. Sleep apnea. 9. History of peripheral neuropathy. 10.History of gout. 11.History of depression. 12.History of concussion. 13.Injury to left foot metacarpals. 14.History of anxiety, bipolar depression, PTSD. 15.History of cocaine and marijuana, opiate, prescription drug abuse, previously remotely. 16.FULL CODE. RECOMMENDATIONS AND DISCUSSION: This 49-year-old gentleman who presented with multiple complex medical issues, we will monitor the patient closely, continue the current management. Broad-spectrum IV antibiotics. Infectious Disease evaluation. Vascular Surgery evaluation. Otherwise, I would also recommend obtain the cultures. Guarded prognosis because of multiple complex medical conditions. See orders for details. Dr. Patel will follow in the morning. MMODL / IJN: [id number] / MTDD
[2020-09-06 20:44] LABS: Glucose,Whole Blood 206 mg/dL (75-99)
[2020-09-06] MEDS ORDERED: INSULIN DETEMIR (LEVEMIR) 100 UNIT/ML SYR SQ SCH (21:00)
[2020-09-06] MEDS: PIPERACILLIN-TAZOBACTAM 3.375 GM in SODIUM CHLORIDE 0.9% 100 ML IVPB SCH (21:01)
[2020-09-06] MEDS: INSULIN DETEMIR (LEVEMIR) 100 UNIT/ML SYR SQ SCH (21:01)
[2020-09-06] MEDS: LITHIUM CARBONATE 150 MG CAP PO SCH (21:02)
[2020-09-06] MEDS: ATORVASTATIN 20 MG TAB PO SCH (21:02)
[2020-09-06] MEDS: INDOMETHACIN 25 MG CAP PO SCH (21:03)
[2020-09-06] MEDS: metFORMIN 500 MG TAB PO SCH (21:03)
[2020-09-06] MEDS: hydrOXYzine pamoate 25 MG CAP PO SCH (21:04)
[2020-09-06] MEDS: GABAPENTIN 300 MG CAP PO SCH (21:04)
[2020-09-06] MEDS: traZODone HCL 100 MG TAB PO SCH (21:04)
[2020-09-06] MEDS: DULoxetine HCL 60 MG CAPSULE.DR PO SCH (21:05)
[2020-09-06] MEDS: busPIRone HCl 10 MG TAB PO SCH (21:05)
[2020-09-06] MEDS: FAMOTIDINE 20 MG TAB PO SCH (21:05)
[2020-09-06] MEDS: HYDROcodone/APAP 10-325MG 1 EACH TAB PO PRN (21:06)
[2020-09-06] MEDS: ZIPRASIDONE 40 MG CAP PO SCH (22:03)
[2020-09-07] MEDS: VANCOMYCIN 2,250 MG in SODIUM CHLORIDE 0.9% 500 ML 500 ML IVPB SCH ×3 (01:23→17:47)
[2020-09-07] MEDS: PIPERACILLIN-TAZOBACTAM 3.375 GM in SODIUM CHLORIDE 0.9% 100 ML IVPB SCH ×3 (05:22→21:18)
[2020-09-07] MEDS: SODIUM CHLORIDE 0.9% 1,000 ML IV SCH ×3 (05:27→21:23)
[2020-09-07] MEDS: Semaglutide [Rybelsus] 3 MG Tablet PO SCH (07:02)
[2020-09-07] MEDS: PANTOPRAZOLE 40 MG TABLET PO SCH (07:03)
[2020-09-07] MEDS: metFORMIN 500 MG TAB PO SCH ×2 (07:03→17:00)
[2020-09-07] MEDS: busPIRone HCl 10 MG TAB PO SCH ×2 (07:03→21:01)
[2020-09-07] MEDS: allopurinoL 300 MG TAB PO SCH (07:03)
[2020-09-07] MEDS: DULoxetine HCL 60 MG CAPSULE.DR PO SCH ×2 (07:03→21:02)
[2020-09-07] MEDS: FAMOTIDINE 20 MG TAB PO SCH ×2 (07:04→21:03)
[2020-09-07] MEDS: INDOMETHACIN 25 MG CAP PO SCH ×3 (07:04→21:19)
[2020-09-07] MEDS: GABAPENTIN 300 MG CAP PO SCH ×3 (07:04→21:01)
[2020-09-07] MEDS: hydrOXYzine pamoate 25 MG CAP PO SCH ×2 (07:04→21:02)
[2020-09-07] MEDS: lisinopriL 10 MG TAB PO SCH (07:05)
[2020-09-07] MEDS: POTASSIUM CHLORIDE ER 10 MEQ TAB.ER.PRT PO SCH (07:05)
[2020-09-07] MEDS: MELOXICAM 7.5 MG TAB PO SCH (07:05)
[2020-09-07] MEDS: LITHIUM CARBONATE 150 MG CAP PO SCH ×2 (07:05→21:19)
[2020-09-07 07:06] LABS: Glucose,Whole Blood 102 mg/dL (75-99)
[2020-09-07] MEDS: INSULIN ASPART (NovoLOG) 100 UNIT/ML VIAL SQ SCH ×7 (07:07→21:00)
[2020-09-07] MEDS: INSULIN DETEMIR (LEVEMIR) 100 UNIT/ML SYR SQ SCH ×2 (07:07→21:03)
[2020-09-07] MEDS: HEPARIN SODIUM,PORCINE/PF 5,000 UNIT/0.5 ML SYRINGE SQ SCH ×2 (08:42→20:59)
[2020-09-07] MEDS: HYDROmorphone 0.5 MG/0.5 ML SYRINGE IVP PRN ×2 (08:49→20:01)
[2020-09-07 09:12] LABS: Amorphous Sediment,Urine Rare /hpf; Appearance,Urine Cloudy (Clear); Bilirubin,Urine Negative (Negative); Blood,Urine Negative (Negative); Color,Urine Yellow; Glucose,Urine (UA) Trace (Negative); Ketones,Urine Trace (Negative); Leukocyte Esterase,Urine Small (Negative); Mucus,Urine Rare /hpf; Nitrite,Urine Negative (Negative); Protein,Urine 1+ (Negative); RBC,Urine 2 /hpf (0-5); Specific Gravity,Urine 1.041 (1.001-1.035); Squamous Epithelial Cell,Urine 1 /hpf (0-4); WBC,Urine 14 /hpf (0-5)
[2020-09-07 09:29] LABS: Amphetamine Screen,Urine Not Detected (NotDetected); Barbiturate Screen,Urine Not Detected (NotDetected); Benzodiazepines Screen,Urine Not Detected (NotDetected); Cocaine Screen,Urine Not Detected (NotDetected); Methadone Screen, Urine Not Detected (NotDetected); Opiate Screen,Urine Detected (NotDetected); Oxycodone Screen, Urine Not Detected (NotDetected); Phencyclidine Screen,Urine Not Detected (NotDetected); Tricyclic Antidepressant,Urine Not Detected (NotDetected); Urn Cannabinoid Scrn Detected (NotDetected)
[2020-09-07 11:34] LABS: African American GFR (CKD) 89.6 (60.0-200.0); Anion Gap 7.6 mmol/L (4.00-12.00); BUN/Creat Ratio 14.55 Ratio (12.00-20.00); Calcium 8.4 mg/dL (8.7-10.3); Carbon Dioxide 29.4 mmol/L (21.6-31.8); Non-African American GFR(CKD) 77.3 (60.0-200.0); Potassium 4.3 mmol/L (3.5-5.5)
[2020-09-07 11:35] LABS: Basophils # (A) 0.12 X 10*3/uL (0.00-0.10); Basophils % (A) 0.7 %; Eosinophils # (A) 0.52 X 10*3/uL (0.04-0.35); Eosinophils % (A) 3.2 %; HCT 47.1 % (39.6-50.0); Lymphocytes # (A) 3.86 X 10*3/uL (0.90-5.00); Lymphocytes % (A) 23.5 %; MCH 30.5 pg (27.0-32.0); MCHC 31.8 g/dL (32.0-37.0); MCV 95.7 fL (80.0-97.0); Mean Platelet Volume 12.1 fL (9.5-12.2); Monocytes # (A) 1.43 X 10*3/uL (0.20-1.00); Monocytes % (A) 8.7 %; Neutrophils # (A) 10.39 X 10*3/uL (1.80-7.70); Neutrophils % (A) 63.4 %; Platelet Count 296 X 10*3/uL (140-440); RBC 4.92 X 10*6/uL (4.40-5.60); RDW 13.4 % (11.5-14.5)
[2020-09-07 11:58] LABS: Glucose,Whole Blood 162 mg/dL (75-99)
[2020-09-07 12:46] VITALS: BMI 50.2
--- NOTE | 2020-09-07 13:01 | P.PN ---
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 Reports history of prior surgery to the affected foot with resulting plate with 16 screws. Evaluated by vascular surgery, bone scan in progress. Scheduled for I&D and potentially amputation of first, possibly a second toes. Wound culture pending. Maintained on IV antibiotics of clindamycin and vancomycin. Renal function stable. Afebrile, WBC trending down, 16.4. Blood sugars better controlled. Denies chest pain, palpitations or shortness of breath. Objective - Vital Signs Vital signs: Vital Signs Temp 98.0 F 09/07/20 07:58 Pulse 61 09/07/20 07:58 Resp 19 09/07/20 07:58 BP 129/84 09/07/20 07:58 Pulse Ox 98 09/07/20 07:58 Intake & Output 09/06/20 09/07/20 09/07/20 18:59 06:59 18:59 Intake Total 1190 Balance 1190 Weight 154.221 kg Intake: Intake, IV Titration 940 Amount Clindamycin 600 mg In 50 Dextrose 5% in Water 50 ml @ 50 mls/hr IVPB ONCE STA Rx#:[id number] Sodium Chloride 0.9% 1, 390 000 ml @ 130 mls/hr IV . Q7H42M [facility] Rx#:[id number] Vancomycin 2,250 mg In 500 Sodium Chloride 0.9% 500 ml 500 ml @ 167 mls/hr IVPB ONCE STA Rx#: [id number] Oral 250 Other: Voiding Method Toilet Toilet # Voids 1 2 - Exam PHYSICAL EXAM: VITAL SIGNS: As above GENERAL: Obese, sitting up in bed, no acute distress HEENT: Conjunctivae normal. eyes normal. NECK: No JVD. No thyroid enlargement. No LNs CARDIOVASCULAR: S1, S2 regular. No murmur RESPIRATION: Breath sounds diminished in the bases. No rhonchi or crackles. No bronchial breathing. ABDOMEN: Soft, nondistended, nontender . No guarding. no masses palpable. No ascites, No hepatosplenomegaly.Bowel sounds heard. LEGS: No edema. no swelling, left foot with erythema, currently without drainage, palpable diminished pedal pulse PSYCHIATRY: Alert and oriented X3, mood and affect normal. NERVOUS SYSTEM: Cranial N 2-12 grossly normal. Moves all 4 limbs. No focal deficits.Strength and sensation grossly intact. Skin: Warm and dry, no rash. - Labs CBC & Chem 7: 09/07/20 07:48 09/07/20 07:48 Labs: Abnormal Lab Results - Last 24 Hours (Table) 09/06/20 09/06/20 09/06/20 Range/Units 12:19 12:19 16:41 WBC 19.1 H (3.8-10.6) k/uL MCHC (32.0-37.0) g/dL Immature Gran # (0.00-0.04) X 10*3/uL Neutrophils # 14.7 H (1.3-7.7) k/uL Monocytes # 1.2 H (0-1.0) k/uL Eosinophils # (0.04-0.35) X 10*3/uL Basophils # (0.00-0.10) X 10*3/uL Sodium 134 L (137-145) mmol/L Creatinine 0.60 L (0.66-1.25) mg/dL Glucose 346 H (74-99) mg/dL POC Glucose (mg/dL) 262 H (75-99) mg/dL Calcium 8.3 L (8.4-10.2) mg/dL Albumin 3.4 L (3.5-5.0) g/dL Ur Specific [place] (1.001-1.035) Urine Protein (Negative) Urine Glucose (UA) (Negative) Urine Ketones (Negative) Ur Leukocyte Esterase (Negative) Urine WBC (0-5) /hpf Amorphous Sediment (None) /hpf Urine Mucus (None) /hpf Urine Opiates Screen (NotDetected) U Marijuana (THC) Screen (NotDetected) 09/06/20 09/07/20 09/07/20 Range/Units 20:43 07:04 07:48 WBC 16.40 H (3.8-10.6) k/uL MCHC 31.8 L (32.0-37.0) g/dL Immature Gran # 0.08 H (0.00-0.04) X 10*3/uL Neutrophils # 10.39 H (1.3-7.7) k/uL Monocytes # 1.43 H (0-1.0) k/uL Eosinophils # 0.52 H (0.04-0.35) X 10*3/uL Basophils # 0.12 H (0.00-0.10) X 10*3/uL Sodium (137-145) mmol/L Creatinine (0.66-1.25) mg/dL Glucose (74-99) mg/dL POC Glucose (mg/dL) 206 H 102 H (75-99) mg/dL Calcium (8.4-10.2) mg/dL Albumin (3.5-5.0) g/dL Ur Specific [place] (1.001-1.035) Urine Protein (Negative) Urine Glucose (UA) (Negative) Urine Ketones (Negative) Ur Leukocyte Esterase (Negative) Urine WBC (0-5) /hpf Amorphous Sediment (None) /hpf Urine Mucus (None) /hpf Urine Opiates Screen (NotDetected) U Marijuana (THC) Screen (NotDetected) 09/07/20 09/07/20 09/07/20 Range/Units 07:48 08:04 11:57 WBC (3.8-10.6) k/uL MCHC (32.0-37.0) g/dL Immature Gran # (0.00-0.04) X 10*3/uL Neutrophils # (1.3-7.7) k/uL Monocytes # (0-1.0) k/uL Eosinophils # (0.04-0.35) X 10*3/uL Basophils # (0.00-0.10) X 10*3/uL Sodium (137-145) mmol/L Creatinine (0.66-1.25) mg/dL Glucose 153 H (74-99) mg/dL POC Glucose (mg/dL) 162 H (75-99) mg/dL Calcium 8.4 L (8.4-10.2) mg/dL Albumin (3.5-5.0) g/dL Ur Specific [place] 1.041 H (1.001-1.035) Urine Protein 1+ H (Negative) Urine Glucose (UA) Trace H (Negative) Urine Ketones Trace H (Negative) Ur Leukocyte Esterase Small H (Negative) Urine WBC 14 H (0-5) /hpf Amorphous Sediment Rare H (None) /hpf Urine Mucus Rare H (None) /hpf Urine Opiates Screen Detected H (NotDetected) U Marijuana (THC) Screen Detected H (NotDetected) Microbiology - Last 24 Hours (Table) 09/06/20 12:22 Gram Stain - Preliminary Foot - Left Wound Culture - Preliminary Assessment and Plan Assessment: Possible sepsis, present on admission related to Acute Diabetic wound of left foot, failed outpatient treatment Possible osteomyelitis of left foot, bone scan in progress History of prior left foot surgery with reported plate and 16 screws Diabetes mellitus type 2, hyperglycemic Hyponatremia, resolved Hypertension Hyperlipidemia Obstructive sleep apnea Peripheral neuropathy PTSD, bipolar, depression, anxiety History of cocaine, marijuana, opiates, prescription drug abuse Morbid obesity, BMI 50.2 Plan: Continue on current medication regime ,monitoring and symptomatic treatment. Bone scan in progress. Debridement/possible amputation as per vascular surgery pending. Maintain IV antibiotics. ID consult in place, recommendations pending. Hemoglobin A1c ordered. Tight control blood sugars. The impression and plan of care has been dictated as directed. : I performed a history and examination of this patient, discussed the same with the dictator. I agree with the dictator's note ,documented as a scribe. Any additional findings or plans will be noted.
--- NOTE | 2020-09-07 14:23 | NM ---
EXAMINATION TYPE: NM bone 3 phase DATE OF EXAM: 09/07/2020 COMPARISON: Three-phase bone scan HISTORY: Osteomyelitis left foot, correlation to plain film 09/06/2020 Triple phase bone scintigraphy was performed following the injection of 21.6 mCi Tc 99m MDP. Immedia te images and 5 hours post injection images acquired. FINDINGS: There is increased blood flow, blood pool, delayed imaging to the left foot as compared to the right. Delayed images show obliquity. Some localization is suspected at the second digit. IMPRESSION: Findings suspicious for osteomyelitis involving the second digit of the left lower, is likely underly ing cellulitis
[2020-09-07] MEDS ORDERED: VANCOMYCIN TROUGH DUE 1 EACH MISC MISCELLANE ONE (15:00)
[2020-09-07] MEDS ORDERED: ONDANSETRON 4 MG/2 ML VIAL IVP ONE (15:21)
[2020-09-07] MEDS ORDERED: ONDANSETRON 4 MG/2 ML VIAL ONE (15:21)
[2020-09-07 15:22] LABS: Glucose,Whole Blood 209 mg/dL (75-99)
[2020-09-07] MEDS ORDERED: LACTATED RINGERS 1,000 ML IV ONE (15:24)
[2020-09-07] MEDS ORDERED: diphenhydrAMINE 50 MG/ML 1 ML VIAL ONE (15:39)
[2020-09-07] MEDS ORDERED: PROPOFOL 10 MG/ML 20 ML VIAL IV ONE (15:39)
[2020-09-07] MEDS ORDERED: KETAMINE 10 MG/ML 20 ML VIAL ONE (15:39)
[2020-09-07] MEDS ORDERED: MIDAZOLAM 2 MG/2 ML VIAL ONE (15:39)
[2020-09-07] MEDS ORDERED: fentaNYL (PF) 50 MCG/ML 2 ML AMP ONE (15:39)
[2020-09-07] MEDS ORDERED: HYDROmorphone (PF) 1 MG/ML ONE (15:39)
[2020-09-07] MEDS ORDERED: LIDOCAINE 1% INJ 10MG/ML (20 ML MDV) SQ ONE (15:59)
--- NOTE | 2020-09-07 16:24 | P.OP ---
Date of Procedure: 09/07/20 Description of Procedure: DATE OF SERVICE: 09/07/2020 SURGEON: Mckayla Jarquin DO PUBLIC HEALTH DIRECTOR: None PREOPERATIVE DIAGNOSIS: [Infected diabetic foot ulceration, osteomyelitis]. POSTOPERATIVE DIAGNOSIS: [Same]. OPERATION: Left second toe amputation. ANESTHESIA: Monitored anesthesia care with local ESTIMATED BLOOD LOSS: 5 mL SPECIMENS REMOVED: Left second toe, culture COMPLICATIONS: None immediately apparent OPERATIVE FINDINGS: There was significant amounts of purulent drainage in between the first and second toe, the portions of the second toe that were removed at the metatarsal had good bony cortex without evidence of osteomyelitis at that level DESCRIPTION OF PROCEDURE: This patient is [49]-years-old with [diabetes and previous plantar wounds who presented to the hospital with a change of erythema and a draining wound. Imaging was performed]. [The patient had a bone scan wh ich was positive for osteomyelitis]. The patient was brought to the operating room under local IV sedation and ring block was performed with 1% lidocaine, and an incision was made at the base of the proximal phalanx, deepened through the skin, fat, and tendons. Tendons were divided prior to plantar and dorsal aspect of the second toe. After that, proximal phalanx was dislocated from the metatarsal joint, and we took deep culture from the toe. It was sent for culture and sensitivity. The distal metatarsal head was removed with a Kunal. Hemostasis was well controlled. At the top portion of the incision was approximated with 3-0 nylon interrupted suture. A wet-to-dry applied. The patient tolerated the procedure well.
[2020-09-07 16:36] LABS: Hemoglobin A1C 7.9 % (4.0-6.0)
[2020-09-07 16:39] LABS: Glucose,Whole Blood 197 mg/dL (75-99)
[2020-09-07] MEDS ORDERED: HYDROmorphone 0.5 MG/0.5 ML SYRINGE IVP ONE (17:08)
[2020-09-07 20:35] LABS: Glucose,Whole Blood 182 mg/dL (75-99)
[2020-09-07] MEDS: traZODone HCL 100 MG TAB PO SCH (21:02)
[2020-09-07] MEDS: ATORVASTATIN 20 MG TAB PO SCH (21:03)
[2020-09-07] MEDS: ZIPRASIDONE 40 MG CAP PO SCH (21:19)
--- NOTE | 2020-09-07 22:46 | P.CONS ---
History of Present Illness - Reason for Consult Consult date: 09/07/20 Diabetic foot infection Requesting physician: Dillon Magana - Chief Complaint Left foot pain swelling and redness x 1 week - History of Present Illness Patient is a 49 male with a past medical history sniffing for diabetes mellitus and this patient had presented to hospital yesterday afternoon for evaluation of worsening pain and swelling to his left foot that has been getting worse for the last few days before presentation hospital apparently did have a chronic wound on the left fourth digit for the patient is evaluated by his senior marketing engineer the last 4 days the patient noted increasing pain erythema and drainage from the site at the base of first and second toe with redness spreading to the left foot and the leg area patient described the pain to be throbbing intensity is almost 10 out of 10 and no radiation patient did have some nausea but denies high-grade fever on presentation to the hospital patient was afebrile and no fever has been recorded subsequently patient did have white count of 19.1-16.40 patient did have a normal creatinine patient did have a foot x-ray which showed soft tissue infection with the first and second digit improved some emphysematous changes cortical erosion on the medial proximal second phalanx may be present on extremities may be present patient started on vancomycin and Zosyn infectious disease was consulted for further management of antibiotic therapy. Review of Systems Positive point has been mentioned in the HPI rest of the systems are negative Past Medical History Past Medical History: Diabetes Mellitus, Hyperlipidemia, Hypertension, Sleep Apnea/CPAP/BIPAP Additional Past Medical History / Comment(s): neuropathy,arthritis gout, depression. Crushing injury to left foot metacarpals repaired with plate and 16 screws in past broke lt foot(sx ), myron carpal tunnel. History of Any Multi-Drug Resistant Organisms: None Reported Past Surgical History: Orthopedic Surgery Additional Past Surgical History / Comment(s): lasik eye sx ,left foot surgery. to reprair break-"has 2 plates and 16 screws" left groin boil cellulitis with excision and debriedment and NPWT performed by Dr. Estrella. Past Anesthesia/Blood Transfusion Reactions: No Reported Reaction Past Psychological History: Anxiety, Bipolar, Depression, PTSD Smoking Status: Never smoker Past Alcohol Use History: None Reported Additional Past Alcohol Use History / Comment(s): "haven't drank since '2018". Past Drug Use History: Cocaine, Marijuana, Opiates, Prescription Drug Abuse Additional Drug Use History / Comment(s): crack cocaine. stated quit all drug use 2016 used crack cocaine today (day of admission 01-22-2019 - Past Family History Mother Family Medical History: Cancer, Diabetes Mellitus Father Family Medical History: Myocardial Infarction ([place]) Additional Family Medical History / Comment(s): stroke Medications and Allergies Home Medications Medication Instructions Recorded Confirmed Type allopurinoL [Zyloprim] 300 mg PO DAILY tab 01/23/18 09/06/20 Rx lisinopriL [Zestril] 10 mg PO DAILY #30 tab 10/21/19 09/06/20 Rx Atorvastatin Calcium [Lipitor] 20 mg PO HS 01/27/20 09/06/20 History metFORMIN HCL 1,000 mg PO BID 01/27/20 09/06/20 History Famotidine [Pepcid] 20 mg PO BID 06/25/20 09/06/20 History Potassium Chloride ER [K-Dur 10] 10 meq PO DAILY 06/25/20 09/06/20 History Semaglutide [Rybelsus] 3 mg PO DAILY@0700 06/25/20 09/06/20 History DULoxetine HCL [Cymbalta] 60 mg PO BID 30 Days capsule. 07/06/20 09/06/20 Rx INSULIN ASPART (NovoLOG) [NovoLOG 40 unit SQ AC-TID vial 07/06/20 09/06/20 Rx (formulary)] Insulin Detemir (Levemir) [Levemir] 80 unit SQ BID@0700,2100 syr 07/06/2009/06 Rx [place] Carbonate 450 mg PO BID 30 Days cap 07/06/20 09/06/20 Rx traZODone HCL [Desyrel] 200 mg PO HS 30 Days tab 07/06/20 09/06/20 Rx Gabapentin 600 mg PO TID 09/06/20 09/06/20 History HYDROcodone/APAP 5-325MG [[place] 1 tab PO QID PRN 09/06/20 09/06/20 History 5-325] Indomethacin [Indocin] 25 mg PO TID 09/06/20 09/06/20 History Meloxicam [Mobic] 15 mg PO DAILY 09/06/20 09/06/20 History Naloxone HCl [Narcan] 4 mg NASAL ONCE PRN 09/06/20 09/06/20 History Pantoprazole Sodium [Protonix] 40 mg PO DAILY 09/06/20 09/06/20 History Ziprasidone [Geodon] 40 mg PO HS 09/06/20 09/06/20 History busPIRone HCL [Buspar] 30 mg PO BID 09/06/20 09/06/20 History hydrOXYzine pamoate [hydrOXYzine 25 mg PO BID 09/06/20 09/06/20 History PAMOATE] Allergies Allergy/AdvReac Type Severity Reaction Status Date / Time ibuprofen [From Motrin] Allergy Rash/Hives Verified 09/06/20 12:37 Physical Exam Vitals: Vital Signs Temp Pulse Pulse Resp BP BP Pulse Ox 09/07/20 07:58 98.0 F 61 19 129/84 98 09/07/20 02:00 97.6 F 72 17 115/79 96 09/06/20 20:08 83 16 09/06/20 20:00 98.4 F 83 16 116/79 95 09/06/20 15:11 97.9 F 62 18 129/80 96 09/06/20 13:48 98.7 F 94 16 123/66 96 09/06/20 12:00 98.6 F 90 18 108/83 96 Intake and Output 09/06/20 09/07/20 09/07/20 22:59 06:59 14:59 Intake Total 1190 Balance 1190 Intake: Intake, IV Titration 940 Amount Clindamycin 600 mg In 50 Dextrose 5% in Water 50 ml @ 50 mls/hr IVPB ONCE STA Rx#:[id number] Sodium Chloride 0.9% 1, 390 000 ml @ 130 mls/hr IV . Q7H42M [facility] Rx#:[id number] Vancomycin 2,250 mg In 500 Sodium Chloride 0.9% 500 ml 500 ml @ 167 mls/hr IVPB ONCE STA Rx#: [id number] Oral 250 Other: Voiding Method Toilet # Voids 1 2 GENERAL DESCRIPTION: Middle-aged male lying in bed, no distress. No tachypnea or accessory muscle of respiration use. HEENT: Shows Pallor , no scleral icterus. Oral mucous membrane is dry. No pharyngeal erythema or thrush NECK: Trachea central, no thyromegaly. LUNGS: Unlabored breathing. Clear to auscultation anteriorly. No wheeze or crackle. HEART: S1, S2, regular rate and rhythm. No loud murmur ABDOMEN: Soft, no tenderness , guarding or rigidity, no organomegaly EXTREMITIES: Left foot with swelling and redness, second toe is more swollen and red with a wound in between the first and second toe and some foul-smelling drainage SKIN: No rash, no masses palpable. NEUROLOGICAL: The patient is awake, alert, oriented x3, mood and affect normal. Results CBC & Chem 7: 09/07/20 07:48 09/07/20 07:48 Labs: Abnormal Lab Results - Last 24 Hours (Table) 09/06/20 09/06/20 09/06/20 Range/Units 12:19 12:19 16:41 WBC 19.1 H (3.8-10.6) k/uL Neutrophils # 14.7 H (1.3-7.7) k/uL Monocytes # 1.2 H (0-1.0) k/uL Sodium 134 L (137-145) mmol/L Creatinine 0.60 L (0.66-1.25) mg/dL Glucose 346 H (74-99) mg/dL POC Glucose (mg/dL) 262 H (75-99) mg/dL Calcium 8.3 L (8.4-10.2) mg/dL Albumin 3.4 L (3.5-5.0) g/dL Ur Specific [place] (1.001-1.035) Urine Protein (Negative) Urine Glucose (UA) (Negative) Urine Ketones (Negative) Ur Leukocyte Esterase (Negative) Urine WBC (0-5) /hpf Amorphous Sediment (None) /hpf Urine Mucus (None) /hpf Urine Opiates Screen (NotDetected) U Marijuana (THC) Screen (NotDetected) 09/06/20 09/07/20 09/07/20 Range/Units 20:43 07:04 08:04 WBC (3.8-10.6) k/uL Neutrophils # (1.3-7.7) k/uL Monocytes # (0-1.0) k/uL Sodium (137-145) mmol/L Creatinine (0.66-1.25) mg/dL Glucose (74-99) mg/dL POC Glucose (mg/dL) 206 H 102 H (75-99) mg/dL Calcium (8.4-10.2) mg/dL Albumin (3.5-5.0) g/dL Ur Specific [place] 1.041 H (1.001-1.035) Urine Protein 1+ H (Negative) Urine Glucose (UA) Trace H (Negative) Urine Ketones Trace H (Negative) Ur Leukocyte Esterase Small H (Negative) Urine WBC 14 H (0-5) /hpf Amorphous Sediment Rare H (None) /hpf Urine Mucus Rare H (None) /hpf Urine Opiates Screen Detected H (NotDetected) U Marijuana (THC) Screen Detected H (NotDetected) Microbiology - Last 24 Hours (Table) 09/06/20 12:22 Gram Stain - Preliminary Foot - Left Wound Culture - Preliminary Assessment and Plan Assessment: patient with extensive left diabetic foot infection involving his first and second toe but predominantly his second toe and concern for underlying osteomyelitis of the second is pending cellulitis to the left foot were negative for further polymicrobial altagracia usually associated with these types of infection (1) Diabetic infection of left foot Current Visit: Yes Status: Acute Code(s): E11.628 - TYPE 2 DIABETES MELLITUS WITH OTHER SKIN COMPLICATIONS; L08.9 - LOCAL INFECTION OF THE SKIN AND SUBCUTANEOUS TISSUE, UNSP SNOMED Code(s): 12220771 Plan: 1-Zosyn 3.375 g every 8 hours 2-with high risk of nephrotoxicity vancomycin will be discontinued and patient s tarted on daptomycin 3-await surgical drainage and deep cultures We will follow on clinical condition and cultures to further adjust medication if needed Thank you for this consultation we will follow the patient along with you Time with Patient: Greater than 30
[2020-09-08] MEDS: HYDROmorphone 0.5 MG/0.5 ML SYRINGE IVP PRN ×2 (01:18→09:37)
[2020-09-08] MEDS: SODIUM CHLORIDE 0.9% 1,000 ML IV SCH ×3 (03:24→20:12)
[2020-09-08] MEDS: PIPERACILLIN-TAZOBACTAM 3.375 GM in SODIUM CHLORIDE 0.9% 100 ML IVPB SCH ×3 (05:49→20:27)
[2020-09-08] MEDS: HYDROcodone/APAP 10-325MG 1 EACH TAB PO PRN ×2 (05:52→18:26)
[2020-09-08] MEDS ORDERED: VANCOMYCIN 2,250 MG in SODIUM CHLORIDE 0.9% 500 ML 500 ML IVPB SCH (06:00)
[2020-09-08 06:32] LABS: African American GFR (CKD) 31 (>60 ml/min/1.73 sqM); Anion Gap 6 mmol/L; Blood Urea Nitrogen 22 mg/dL (9-20); Calcium 8.2 mg/dL (8.4-10.2); Carbon Dioxide 25 mmol/L (22-30); Chloride 106 mmol/L (98-107); Glucose 186 mg/dL (74-99); Non-African American GFR(CKD) 27 (>60 ml/min/1.73 sqM); Potassium 4.1 mmol/L (3.5-5.1); Sodium 137 mmol/L (137-145)
[2020-09-08 07:05] LABS: Glucose,Whole Blood 201 mg/dL (75-99)
[2020-09-08 07:15] LABS: C Reactive Protein 8.8 mg/dL (<1.0)
[2020-09-08] MEDS: Semaglutide [Rybelsus] 3 MG Tablet PO SCH (07:17)
[2020-09-08] MEDS: PANTOPRAZOLE 40 MG TABLET PO SCH (07:26)
[2020-09-08] MEDS: metFORMIN 500 MG TAB PO SCH (07:26)
[2020-09-08] MEDS: INSULIN ASPART (NovoLOG) 100 UNIT/ML VIAL SQ SCH ×7 (07:28→20:27)
[2020-09-08] MEDS: INSULIN DETEMIR (LEVEMIR) 100 UNIT/ML SYR SQ SCH ×2 (07:28→20:15)
[2020-09-08] MEDS: HEPARIN SODIUM,PORCINE/PF 5,000 UNIT/0.5 ML SYRINGE SQ SCH ×2 (09:58→20:13)
[2020-09-08] MEDS: hydrOXYzine pamoate 25 MG CAP PO SCH ×2 (09:59→20:14)
[2020-09-08] MEDS: allopurinoL 300 MG TAB PO SCH (10:02)
[2020-09-08] MEDS: busPIRone HCl 10 MG TAB PO SCH ×2 (10:02→20:14)
[2020-09-08] MEDS: GABAPENTIN 300 MG CAP PO SCH ×3 (10:02→20:26)
[2020-09-08] MEDS: MELOXICAM 7.5 MG TAB PO SCH (10:03)
[2020-09-08] MEDS: DULoxetine HCL 60 MG CAPSULE.DR PO SCH ×2 (10:03→20:25)
[2020-09-08] MEDS: INDOMETHACIN 25 MG CAP PO SCH ×3 (10:04→20:25)
[2020-09-08] MEDS: FAMOTIDINE 20 MG TAB PO SCH (10:04)
[2020-09-08] MEDS: lisinopriL 10 MG TAB PO SCH (10:04)
[2020-09-08] MEDS: POTASSIUM CHLORIDE ER 10 MEQ TAB.ER.PRT PO SCH (10:04)
[2020-09-08] MEDS: LITHIUM CARBONATE 150 MG CAP PO SCH ×2 (10:05→20:14)
[2020-09-08 11:31] LABS: Glucose,Whole Blood 67 mg/dL (75-99)
[2020-09-08 12:09] LABS: Glucose,Whole Blood 62 mg/dL (75-99)
[2020-09-08 12:24] LABS: Glucose,Whole Blood 82 mg/dL (75-99)
--- NOTE | 2020-09-08 13:46 | P.PN ---
Subjective Progress Note Date: 09/08/20 Principal diagnosis: foot wound The patient was seen and examined lying in bed. He is postop day #1 for left second toe amputation. He states overall he is doing well. No significant pain. His dressing is intact and saturated with blood. States he got up to go the bathroom yesterday was trying to heel walk but after having gone off he had significant amount of bleeding. Nursing reapplied gauze. Labs are currently pending. Objective - Vital Signs Vital signs: Vital Signs Temp 98 F 09/08/20 07:47 Pulse 75 09/08/20 01:38 Resp 17 09/08/20 07:47 BP 116/79 09/08/20 07:47 Pulse Ox 95 09/08/20 01:38 Intake & Output 09/07/20 09/08/20 09/08/20 18:59 06:59 18:59 Intake Total 900 Output Total 10 Balance 890 Weight 154.221 kg Intake: IV 800 Oral 100 Output: Estimated Blood Loss 10 Other: Voiding Method Toilet Toilet # Voids 2 2 - Exam General appearance: The patient is alert, oriented, in no acute distress. Obese. HET: Head is normocephalic and atraumatic. Neck: Supple without lymphadenopathy. Trachea midline. Heart: S1 S2. Regular rate and rhythm. Lungs: Clear to auscultation. Abdomen: Soft, nontender, nondistended. Extremities: Bilateral lower extremities with swelling. Left lower extremity amputation site with bloody drainage, sutures intact. Swelling to left lower extremity is improved, redness to the anterior aspect of left lower extremity improved. Palpable dorsalis pedis pulse. Neurological: No focal deficits. Strength and sensation are grossly intact. - Labs CBC & Chem 7: 09/07/20 07:48 09/08/20 05:32 Labs: Abnormal Lab Results - Last 24 Hours (Table) 09/07/20 09/07/20 09/07/20 Range/Units 07:48 07:48 07:48 WBC 16.40 H (4.50-10.00) X 10*3/uL MCHC 31.8 L (32.0-37.0) g/dL Immature Gran # 0.08 H (0.00-0.04) X 10*3/uL Neutrophils # 10.39 H (1.80-7.70) X 10*3/uL Monocytes # 1.43 H (0.20-1.00) X 10*3/uL Eosinophils # 0.52 H (0.04-0.35) X 10*3/uL Basophils # 0.12 H (0.00-0.10) X 10*3/uL BUN (9-20) mg/dL Creatinine (0.66-1.25) mg/dL Glucose 153 H (70-110) mg/dL POC Glucose (mg/dL) (75-99) mg/dL Hemoglobin A1c 7.9 H (4.0-6.0) % Calcium 8.4 L (8.7-10.3) mg/dL C-Reactive Protein (<1.0) mg/dL Vancomycin Trough ug/mL 09/07/20 09/07/20 09/07/20 Range/Units 11:57 15:20 16:37 WBC (4.50-10.00) X 10*3/uL MCHC (32.0-37.0) g/dL Immature Gran # (0.00-0.04) X 10*3/uL Neutrophils # (1.80-7.70) X 10*3/uL Monocytes # (0.20-1.00) X 10*3/uL Eosinophils # (0.04-0.35) X 10*3/uL Basophils # (0.00-0.10) X 10*3/uL BUN (9-20) mg/dL Creatinine (0.66-1.25) mg/dL Glucose (70-110) mg/dL POC Glucose (mg/dL) 162 H 209 H 197 H (75-99) mg/dL Hemoglobin A1c (4.0-6.0) % Calcium (8.7-10.3) mg/dL C-Reactive Protein (<1.0) mg/dL Vancomycin Trough ug/mL 09/07/20 09/07/20 09/08/20 Range/Units 17:29 20:34 05:32 WBC (4.50-10.00) X 10*3/uL MCHC (32.0-37.0) g/dL Immature Gran # (0.00-0.04) X 10*3/uL Neutrophils # (1.80-7.70) X 10*3/uL Monocytes # (0.20-1.00) X 10*3/uL Eosinophils # (0.04-0.35) X 10*3/uL Basophils # (0.00-0.10) X 10*3/uL BUN 22 H (9-20) mg/dL Creatinine 2.62 H (0.66-1.25) mg/dL Glucose 186 H (70-110) mg/dL POC Glucose (mg/dL) 182 H (75-99) mg/dL Hemoglobin A1c (4.0-6.0) % Calcium 8.2 L (8.7-10.3) mg/dL C-Reactive Protein 8.8 H (<1.0) mg/dL Vancomycin Trough 30.5 H* ug/mL 09/08/20 Range/Units 07:03 WBC (4.50-10.00) X 10*3/uL MCHC (32.0-37.0) g/dL Immature Gran # (0.00-0.04) X 10*3/uL Neutrophils # (1.80-7.70) X 10*3/uL Monocytes # (0.20-1.00) X 10*3/uL Eosinophils # (0.04-0.35) X 10*3/uL Basophils # (0.00-0.10) X 10*3/uL BUN (9-20) mg/dL Creatinine (0.66-1.25) mg/dL Glucose (70-110) mg/dL POC Glucose (mg/dL) 201 H (75-99) mg/dL Hemoglobin A1c (4.0-6.0) % Calcium (8.7-10.3) mg/dL C-Reactive Protein (<1.0) mg/dL Vancomycin Trough ug/mL Microbiology - Last 24 Hours (Table) 09/07/20 16:19 Wound Culture - Preliminary Foot - Left 09/07/20 16:19 Anaerobic Culture - Preliminary Foot - Left 09/06/20 12:19 Blood Culture - Preliminary Blood No Growth after 24 hours 09/06/20 12:18 Blood Culture - Preliminary Blood No Growth after 24 hours 09/06/20 12:22 Gram Stain - Preliminary Foot - Left Wound Culture - Preliminary Assessment and Plan Assessment: 1. Postop day #1 left second toe amputation 2. Infected diabetic foot wound 3. Diabetes 4. History left foot surgery Plan: 1. Continue supportive care 2. Consistent carbohydrate diet 3. Daily wet-to-dry dressing changes 4. Continue IV antibiotics per recommendations from infectious disease, recommend outpatient coverage due to previous foot surgery with hardware 5. Defer medical management per primary medicine team Thank you for this consultation, we will continue to follow The impression and plan of care has been dictated as directed. Dr. Jarquin I performed a history and examination of this patient, discussed the same with the dictator. I agree with the dictator's note ,documented as a scribe. Any additional findings or plans will be noted.
[2020-09-08 13:48] LABS: Basophils # (A) 0.07 X 10*3/uL (0.00-0.10); Basophils % (A) 0.6 %; Eosinophils # (A) 0.41 X 10*3/uL (0.04-0.35); Eosinophils % (A) 3.3 %; HCT 41.3 % (39.6-50.0); HGB 12.8 g/dL (13.0-17.0); Lymphocytes # (A) 2.91 X 10*3/uL (0.90-5.00); Lymphocytes % (A) 23.2 %; MCH 30.3 pg (27.0-32.0); MCV 97.9 fL (80.0-97.0); Monocytes # (A) 1.22 X 10*3/uL (0.20-1.00); Monocytes % (A) 9.7 %; Neutrophils # (A) 7.87 X 10*3/uL (1.80-7.70); Neutrophils % (A) 62.7 %; Platelet Count 253 X 10*3/uL (140-440); RBC 4.22 X 10*6/uL (4.40-5.60); RDW 13.5 % (11.5-14.5); WBC 12.54 X 10*3/uL (4.50-10.00)
[2020-09-08 16:23] LABS: Glucose,Whole Blood 150 mg/dL (75-99)
--- NOTE | 2020-09-08 16:55 | P.PN ---
Subjective Progress Note Date: 09/08/20 This is a 49-year-old gentleman admitted with a left diabetic plantar foot wound, had been following with a executive business coach, worsened. Reports history of prior surgery to the affected foot with resulting plate with 16 screws. Evaluated by vascular surgery, bone scan in progress. Scheduled for I&D and potentially amputation of first, possibly a second toes. Wound culture pending. Maintained on IV antibiotics of clindamycin and vancomycin. Renal function stable. Afebrile, WBC trending down, 16.4. Blood sugars better controlled. Denies chest pain, palpitations or shortness of breath. 09/08/2020 bone scan reported suspicious for osteomyelitis involving the second digit of the left lower, with likely underlying cellulitis. status post left second toe amputation, postop day #1, tolerated well. Pain controlled. Earlier this morning patient had gotten up to bathroom, with significant bleeding re ported from site. Pressure dressing applied, dressing and currently clean dry and intact, labs pending. Maintained on IV antibiotics daptomycin and Zosyn, and IV fluid hydration. Afebrile. Objective - Vital Signs Vital signs: Vital Signs Temp 97.6 F 09/08/20 12:42 Pulse 66 09/08/20 12:42 Resp 18 09/08/20 12:42 BP 106/73 09/08/20 12:42 Pulse Ox 93 L 09/08/20 12:42 Intake & Output 09/07/20 09/08/20 09/08/20 18:59 06:59 18:59 Intake Total 900 Output Total 10 Balance 890 Weight 154.221 kg Intake: IV 800 Oral 100 Output: Estimated Blood Loss 10 Other: Voiding Method Toilet Toilet # Voids 2 2 - Exam PHYSICAL EXAM: VITAL SIGNS: As above GENERAL: Obese, sitting up in bed, no acute distress HEENT: Conjunctivae normal. eyes normal. NECK: No JVD. No thyroid enlargement. No LNs CARDIOVASCULAR: S1, S2 regular. No murmur RESPIRATION: Breath sounds diminished in the bases. No rhonchi or crackles. No bronchial breathing. ABDOMEN: Soft, nondistended, nontender . No guarding. no masses palpable.Bowel sounds heard. LEGS: Positive swelling of bilateral lower extremity, left foot dressing clean dry and intact, left lower extremity anterior-headedness, palpable diminished DP pulse PSYCHIATRY: Alert and oriented X3, mood and affect normal. NERVOUS SYSTEM: Cranial N 2-12 grossly normal. Moves all 4 limbs. No focal deficits.Strength and sensation grossly intact. Skin: Warm and dry, no rash. - Labs CBC & Chem 7: 09/08/20 05:32 09/08/20 05:32 Labs: Abnormal Lab Results - Last 24 Hours (Table) 09/07/20 09/07/20 09/08/20 Range/Units 17:29 20:34 05:32 WBC (4.50-10.00) X 10*3/uL RBC (4.40-5.60) X 10*6/uL Hgb (13.0-17.0) g/dL MCV (80.0-97.0) fL MCHC (32.0-37.0) g/dL Immature Gran # (0.00-0.04) X 10*3/uL Neutrophils # (1.80-7.70) X 10*3/uL Monocytes # (0.20-1.00) X 10*3/uL Eosinophils # (0.04-0.35) X 10*3/uL BUN 22 H (9-20) mg/dL Creatinine 2.62 H (0.66-1.25) mg/dL Glucose 186 H (74-99) mg/dL POC Glucose (mg/dL) 182 H (75-99) mg/dL Calcium 8.2 L (8.4-10.2) mg/dL C-Reactive Protein 8.8 H (<1.0) mg/dL Vancomycin Trough 30.5 H* ug/mL 09/08/20 09/08/20 09/08/20 Range/Units 05:32 07:03 11:30 WBC 12.54 H (4.50-10.00) X 10*3/uL RBC 4.22 L (4.40-5.60) X 10*6/uL Hgb 12.8 L (13.0-17.0) g/dL MCV 97.9 H (80.0-97.0) fL MCHC 31.0 L (32.0-37.0) g/dL Immature Gran # 0.06 H (0.00-0.04) X 10*3/uL Neutrophils # 7.87 H (1.80-7.70) X 10*3/uL Monocytes # 1.22 H (0.20-1.00) X 10*3/uL Eosinophils # 0.41 H (0.04-0.35) X 10*3/uL BUN (9-20) mg/dL Creatinine (0.66-1.25) mg/dL Glucose (74-99) mg/dL POC Glucose (mg/dL) 201 H 67 L (75-99) mg/dL Calcium (8.4-10.2) mg/dL C-Reactive Protein (<1.0) mg/dL Vancomycin Trough ug/mL 09/08/20 09/08/20 Range/Units 12:04 16:22 WBC (4.50-10.00) X 10*3/uL RBC (4.40-5.60) X 10*6/uL Hgb (13.0-17.0) g/dL MCV (80.0-97.0) fL MCHC (32.0-37.0) g/dL Immature Gran # (0.00-0.04) X 10*3/uL Neutrophils # (1.80-7.70) X 10*3/uL Monocytes # (0.20-1.00) X 10*3/uL Eosinophils # (0.04-0.35) X 10*3/uL BUN (9-20) mg/dL Creatinine (0.66-1.25) mg/dL Glucose (74-99) mg/dL POC Glucose (mg/dL) 62 L 150 H (75-99) mg/dL Calcium (8.4-10.2) mg/dL C-Reactive Protein (<1.0) mg/dL Vancomycin Trough ug/mL Microbiology - Last 24 Hours (Table) 09/06/20 12:19 Blood Culture - Preliminary Blood No Growth after 48 hours 09/06/20 12:18 Blood Culture - Preliminary Blood No Growth after 48 hours 09/06/20 12:22 Gram Stain - Final Foot - Left Wound Culture - Final 09/07/20 16:19 Wound Culture - Preliminary Foot - Left 09/07/20 16:19 Anaerobic Culture - Preliminary Foot - Left Assessment and Plan Assessment: Possible sepsis, present on admission related to Acute Diabetic wound of left foot, failed outpatient treatment Suspicious for osteomyelitis of left foot, second digit status post bone scan, status post amputation of left second toe History of prior left foot surgery with reported plate and 16 screws Diabetes mellitus type 2, hyperglycemic, hemoglobin A1c 7.9 Hyponatremia, resolved Hypertension Hyperlipidemia Obstructive sleep apnea Peripheral neuropathy PTSD, bipolar, depression, anxiety History of cocaine, marijuana, opiates, prescription drug abuse Morbid obesity, BMI 50.2 Plan: Continue on current medication regime ,monitoring and symptomatic treatment. Labs pending. Cultures pending. IV antibiotics per ID. close monitoring of Accu-Cheks. The impression and plan of care has been dictated as directed. : I performed a history and examination of this patient, discussed the same with the dictator. I agree with the dictator's note ,documented as a scribe. Any additional findings or plans will be noted.
[2020-09-08 18:33] LABS: Erythrocyte Sedimentation Rate 46 mm/Hr (0-20)
[2020-09-08] MEDS: LOPERAMIDE 2 MG CAP PO PRN (20:13)
[2020-09-08] MEDS: traZODone HCL 100 MG TAB PO SCH (20:14)
[2020-09-08 20:20] LABS: Glucose,Whole Blood 225 mg/dL (75-99)
[2020-09-08] MEDS: ZIPRASIDONE 40 MG CAP PO SCH (20:26)
--- NOTE | 2020-09-08 23:17 | PN ---
PROGRESS NOTE DATE OF SERVICE: 09/08/2020 REASON FOR FOLLOWUP: Left diabetic foot infection. INTERVAL HISTORY: Patient is afebrile. The patient is breathing comfortably. Denies having any chest pain, shortness of breath, cough, abdominal pain, or worsening pain in the left foot. PHYSICAL EXAMINATION: Blood pressure 91/69, pulse of 85, temperature 98. He is 95% on room air. General description is a middle-aged male lying in no distress. Respiratory system: Unlabored breathing, clear to auscultation anteriorly. Heart S1, S2. Regular rate and rhythm. Abdomen is soft, no tenderness. LABS: The patient did have worsening of his kidney function with creatinine up to 2.62. Cultures are currently pending. DIAGNOSTIC IMPRESSION AND PLAN: Patient with left diabetic foot infection, status post amputation of left second toe. Cultures currently pending. The patient unfortunately did have worsening of his kidney function, more likely which has been discontinued. Patient is covered with daptomycin and Zosyn. on the culture report. Continue supportive care. MMODL / IJN: [id number] /
[2020-09-09] MEDS: SODIUM CHLORIDE 0.9% 1,000 ML IV SCH ×3 (00:20→19:26)
[2020-09-09] MEDS: PIPERACILLIN-TAZOBACTAM 3.375 GM in SODIUM CHLORIDE 0.9% 100 ML IVPB SCH ×3 (05:18→20:51)
[2020-09-09 06:44] LABS: Glucose,Whole Blood 206 mg/dL (75-99)
[2020-09-09] MEDS: Semaglutide [Rybelsus] 3 MG Tablet PO SCH (07:15)
[2020-09-09] MEDS: INSULIN ASPART (NovoLOG) 100 UNIT/ML VIAL SQ SCH ×7 (07:19→20:51)
[2020-09-09] MEDS: INSULIN DETEMIR (LEVEMIR) 100 UNIT/ML SYR SQ SCH ×2 (07:59→20:52)
[2020-09-09] MEDS: PANTOPRAZOLE 40 MG TABLET PO SCH (08:00)
[2020-09-09] MEDS: HYDROcodone/APAP 10-325MG 1 EACH TAB PO PRN ×2 (09:38→17:05)
[2020-09-09] MEDS: HEPARIN SODIUM,PORCINE/PF 5,000 UNIT/0.5 ML SYRINGE SQ SCH ×2 (10:05→20:52)
[2020-09-09] MEDS: GABAPENTIN 300 MG CAP PO SCH ×3 (10:06→20:56)
[2020-09-09] MEDS: allopurinoL 300 MG TAB PO SCH (10:07)
[2020-09-09] MEDS: busPIRone HCl 10 MG TAB PO SCH ×2 (10:07→20:52)
[2020-09-09] MEDS: hydrOXYzine pamoate 25 MG CAP PO SCH ×2 (10:08→20:53)
[2020-09-09] MEDS: DULoxetine HCL 60 MG CAPSULE.DR PO SCH ×2 (10:08→20:56)
[2020-09-09] MEDS: FAMOTIDINE 20 MG TAB PO SCH (10:09)
[2020-09-09] MEDS: lisinopriL 10 MG TAB PO SCH (10:09)
[2020-09-09] MEDS: INDOMETHACIN 25 MG CAP PO SCH ×3 (10:10→20:52)
[2020-09-09] MEDS: LITHIUM CARBONATE 150 MG CAP PO SCH ×2 (10:10→20:56)
[2020-09-09] MEDS: MELOXICAM 7.5 MG TAB PO SCH (10:17)
[2020-09-09] MEDS: POTASSIUM CHLORIDE ER 10 MEQ TAB.ER.PRT PO SCH (10:18)
[2020-09-09] MEDS: LACTOBACILLUS ACIDOPH & BULGAR 1 EACH PACKET PO SCH ×2 (11:34→17:06)
[2020-09-09] MEDS: HYDROmorphone 0.5 MG/0.5 ML SYRINGE IVP PRN ×2 (11:49→21:13)
[2020-09-09] MEDS: LOPERAMIDE 2 MG CAP PO PRN (11:49)
[2020-09-09 11:55] LABS: Glucose,Whole Blood 254 mg/dL (75-99)
--- NOTE | 2020-09-09 12:45 | P.PN ---
Subjective Progress Note Date: 09/09/20 Principal diagnosis: foot wound Patient is seen and examined lying in bed. States the burning down his leg has gone away completely. He is still having some throbbing at the amputation site. States he did have some bleeding when he was up and ambulating to the bathroom. States they just changed dressingPatient is afebrile. He continues on his IV antibiotics. He did state he did have some diarrhea, likely from antibiotics.. Objective - Vital Signs Vital signs: Vital Signs Temp 97.4 F L 09/09/20 08:10 Pulse 93 09/09/20 09:38 Resp 18 09/09/20 09:38 BP 115/69 09/09/20 08:10 Pulse Ox 95 09/09/20 08:10 Intake & Output 09/08/20 09/09/20 09/09/20 18:59 06:59 18:59 Intake Total 750 Output Total 200 Balance -200 750 Intake: Intake, IV Titration 750 Amount Piperacillin-Tazobactam 3 100 .375 gm In Sodium Chloride 0.9% 100 ml @ 25 mls/hr IVPB Q8H [facility] Rx#: [id number] Sodium Chloride 0.9% 1, 650 000 ml @ 130 mls/hr IV . Q7H42M [facility] Rx#:[id number] Output: Urine 200 Other: Voiding Method Toilet Toilet # Voids 2 # Bowel Movements 1 - Exam General appearance: The patient is alert, oriented, in no acute distress. Obese. HET: Head is normocephalic and atraumatic. Neck: Supple without lymphadenopathy. Trachea midline. Heart: S1 S2. Regular rate and rhythm. Lungs: Clear to auscultation. Abdomen: Soft, nontender, nondistended. Extremities: Bilateral lower extremities with swelling. Left lower extremity dressing clean dry and intact. Swelling to left lower extremity is improved, redness to the anterior aspect of left lower extremity improved. Palpable dorsalis pedis pulse. Neurological: No focal deficits. Strength and sensation are grossly intact. - Labs CBC & Chem 7: 09/08/20 05:32 09/08/20 05:32 Labs: Abnormal Lab Results - Last 24 Hours (Table) 09/08/20 09/08/20 09/08/20 Range/Units 05:32 16:22 20:16 WBC 12.54 H (4.50-10.00) X 10*3/uL RBC 4.22 L (4.40-5.60) X 10*6/uL Hgb 12.8 L (13.0-17.0) g/dL MCV 97.9 H (80.0-97.0) fL MCHC 31.0 L (32.0-37.0) g/dL Immature Gran # 0.06 H (0.00-0.04) X 10*3/uL Neutrophils # 7.87 H (1.80-7.70) X 10*3/uL Monocytes # 1.22 H (0.20-1.00) X 10*3/uL Eosinophils # 0.41 H (0.04-0.35) X 10*3/uL ESR 46 H (0-20) mm/Hr POC Glucose (mg/dL) 150 H 225 H (75-99) mg/dL 09/09/20 09/09/20 Range/Units 06:43 11:54 WBC (4.50-10.00) X 10*3/uL RBC (4.40-5.60) X 10*6/uL Hgb (13.0-17.0) g/dL MCV (80.0-97.0) fL MCHC (32.0-37.0) g/dL Immature Gran # (0.00-0.04) X 10*3/uL Neutrophils # (1.80-7.70) X 10*3/uL Monocytes # (0.20-1.00) X 10*3/uL Eosinophils # (0.04-0.35) X 10*3/uL ESR (0-20) mm/Hr POC Glucose (mg/dL) 206 H 254 H (75-99) mg/dL Microbiology - Last 24 Hours (Table) 09/06/20 12:19 Blood Culture - Preliminary Blood No Growth after 48 hours 09/06/20 12:18 Blood Culture - Preliminary Blood No Growth after 48 hours 09/06/20 12:22 Gram Stain - Final Foot - Left Wound Culture - Final Assessment and Plan Assessment: 1. Postop day #2 left second toe amputation 2. Infected diabetic foot wound 3. Diabetes 4. History left foot surgery Plan: 1. Continue supportive care 2. Consistent carbohydrate diet 3. Daily wet-to-dry dressing changes 4. Continue IV antibiotics per recommendations from infectious disease, recomm end outpatient coverage due to previous foot surgery with hardware 5. Defer medical management per primary medicine team Thank you for this consultation, we will continue to follow The impression and plan of care has been dictated as directed. Dr. Jarquin I performed a history and examination of this patient, discussed the same with the dictator. I agree with the dictator's note ,documented as a scribe. Any additional findings or plans will be noted.
--- NOTE | 2020-09-09 13:28 | P.PN ---
Subjective Progress Note Date: 09/09/20 This is a 49-year-old gentleman admitted with a left diabetic plantar foot wound, had been following with a instrument mechanic, worsened. Reports history of prior surgery to the affected foot with resulting plate with 16 screws. Evaluated by vascular surgery, bone scan in progress. Scheduled for I&D and potentially amputation of first, possibly a second toes. Wound culture pending. Maintained on IV antibiotics of clindamycin and vancomycin. Renal function stable. Afebrile, WBC trending down, 16.4. Blood sugars better controlled. Denies chest pain, palpitations or shortness of breath. 09/08/2020 bone scan reported suspicious for osteomyelitis involving the second digit of the left lower, with likely underlying cellulitis. status post left second toe amputation, postop day #1, tolerated well. Pain controlled. Earlier this morning patient had gotten up to bathroom, with significant bleeding re ported from site. Pressure dressing applied, dressing and currently clean dry and intact, labs pending. Maintained on IV antibiotics daptomycin and Zosyn, and IV fluid hydration. Afebrile. 09/09/2020 maintained on IV antibiotics as per ID. Reported diarrhea, suspect antibiotic related. Lactinex added to med regimen. Hemoglobin stable. Reports throbbing of affected lower extremity. Afebrile, wound cultures pending. Creatinine jumped to 2.62 yesterday; patient had been on vancomycin initially. Maintained on IV fluid hydration. Repeat labs pending. Blood sugars elevated, ranging from 180s to 250s. Objective - Vital Signs Vital signs: Vital Signs Temp 97.4 F L 09/09/20 08:10 Pulse 93 09/09/20 09:38 Resp 18 09/09/20 09:38 BP 115/69 09/09/20 08:10 Pulse Ox 95 09/09/20 08:10 Intake & Output 09/08/20 09/09/20 09/09/20 18:59 06:59 18:59 Intake Total 750 Output Total 200 Balance -200 750 Intake: Intake, IV Titration 750 Amount Piperacillin-Tazobactam 3 100 .375 gm In Sodium Chloride 0.9% 100 ml @ 25 mls/hr IVPB Q8H [facility] Rx#: [id number] Sodium Chloride 0.9% 1, 650 000 ml @ 130 mls/hr IV . Q7H42M [facility] Rx#:[id number] Output: Urine 200 Other: Voiding Method Toilet Toilet # Voids 2 # Bowel Movements 1 - Exam PHYSICAL EXAM: VITAL SIGNS: As above GENERAL: Obese, sitting up in bed, no acute distress HEENT: Conjunctivae normal. eyes normal. NECK: No JVD. No thyroid enlargement. No LNs CARDIOVASCULAR: S1, S2 regular. No murmur RESPIRATION: Breath sounds diminished in the bases. No rhonchi or crackles. No bronchial breathing. ABDOMEN: Soft, nondistended, nontender . No guarding. no masses palpable.Bowel sounds heard. LEGS: Positive swelling of bilateral lower extremity, left foot dressing clean dry and intact, decreased redness of left lower extremity anterior, palpable diminished DP pulse PSYCHIATRY: Alert and oriented X3, mood and affect normal. NERVOUS SYSTEM: Cranial N 2-12 grossly normal. Moves all 4 limbs. No focal deficits.Strength and sensation grossly intact. Skin: Warm and dry, no rash. - Labs CBC & Chem 7: 09/08/20 05:32 09/08/20 05:32 Labs: Abnormal Lab Results - Last 24 Hours (Table) 09/08/20 09/08/20 09/08/20 Range/Units 05:32 16:22 20:16 WBC 12.54 H (4.50-10.00) X 10*3/uL RBC 4.22 L (4.40-5.60) X 10*6/uL Hgb 12.8 L (13.0-17.0) g/dL MCV 97.9 H (80.0-97.0) fL MCHC 31.0 L (32.0-37.0) g/dL Immature Gran # 0.06 H (0.00-0.04) X 10*3/uL Neutrophils # 7.87 H (1.80-7.70) X 10*3/uL Monocytes # 1.22 H (0.20-1.00) X 10*3/uL Eosinophils # 0.41 H (0.04-0.35) X 10*3/uL ESR 46 H (0-20) mm/Hr POC Glucose (mg/dL) 150 H 225 H (75-99) mg/dL 09/09/20 09/09/20 Range/Units 06:43 11:54 WBC (4.50-10.00) X 10*3/uL RBC (4.40-5.60) X 10*6/uL Hgb (13.0-17.0) g/dL MCV (80.0-97.0) fL MCHC (32.0-37.0) g/dL Immature Gran # (0.00-0.04) X 10*3/uL Neutrophils # (1.80-7.70) X 10*3/uL Monocytes # (0.20-1.00) X 10*3/uL Eosinophils # (0.04-0.35) X 10*3/uL ESR (0-20) mm/Hr POC Glucose (mg/dL) 206 H 254 H (75-99) mg/dL Microbiology - Last 24 Hours (Table) 09/06/20 12:19 Blood Culture - Preliminary Blood No Growth after 48 hours 09/06/20 12:18 Blood Culture - Preliminary Blood No Growth after 48 hours 09/06/20 12:22 Gram Stain - Final Foot - Left Wound Culture - Final Assessment and Plan Assessment: Possible sepsis, present on admission related to Acute Diabetic wound of left foot, failed outpatient treatment Suspicious for osteomyelitis of left foot, second digit status post bone scan, status post amputation of left second toe Acute renal failure, suspect medication induced, patient initially on vancomycin which has been discontinued. History of prior left foot surgery with reported plate and 16 screws Diabetes mellitus type 2, hyperglycemic, hemoglobin A1c 7.9 Hyponatremia, resolved Hypertension Hyperlipidemia Obstructive sleep apnea Peripheral neuropathy PTSD, bipolar, depression, anxiety History of cocaine, marijuana, opiates, prescription drug abuse Morbid obesity, BMI 50.2 Plan: Continue on current medication regime ,monitoring and symptomatic treatment. Maintain IV fluid hydration, F/U Labs pending with close monitoring of renal function-repeat labs ordered for a.m. Cultures pending. IV antibiotics per ID. blood sugars uncontrolled ,Levemir dose increased, close monitoring of Accu-Cheks. The impression and plan of care has been dictated as directed. : I performed a history and examination of this patient, discussed the same with the dictator. I agree with the dictator's note ,documented as a scribe. Any additional findings or plans will be noted.
[2020-09-09 14:34] LABS: HCT 45.5 % (39.0-53.0); HGB 13.8 gm/dL (13.0-17.5); Hypochromasia Slight; MCH 30.4 pg (25.0-35.0); MCHC 30.4 g/dL (31.0-37.0); MCV 99.9 fL (80.0-100.0); Mean Platelet Volume 8.7; Platelet Count 321 k/uL (150-450); RBC 4.55 m/uL (4.30-5.90); RDW 13.8 % (11.5-15.5); WBC 13.5 k/uL (3.8-10.6)
[2020-09-09 14:45] LABS: African American GFR (CKD) 15 (>60 ml/min/1.73 sqM); Anion Gap 11 mmol/L; Blood Urea Nitrogen 30 mg/dL (9-20); Calcium 9.2 mg/dL (8.4-10.2); Carbon Dioxide 24 mmol/L (22-30); Chloride 108 mmol/L (98-107); Glucose 84 mg/dL (74-99); Non-African American GFR(CKD) 13 (>60 ml/min/1.73 sqM); Potassium 4.2 mmol/L (3.5-5.1); Sodium 143 mmol/L (137-145)
[2020-09-09 16:56] LABS: Glucose,Whole Blood 133 mg/dL (75-99)
--- NOTE | 2020-09-09 17:10 | PN ---
PROGRESS NOTE DATE OF SERVICE: 09/09/2020 REASON FOR FOLLOWUP: Left diabetic foot infection with osteomyelitis. INTERVAL HISTORY: The patient is afebrile. The patient is breathing comfortably. Denies having any chest pain, shortness of breath. No abdominal pain or any worsening of left foot. PHYSICAL EXAMINATION: Blood pressure 100/61, pulse of 69, temperature 98.7. He is 96% on room air. General description is a middle-aged male lying in bed in no distress. Respiratory system: Unlabored breathing, clear to auscultation anteriorly. Heart S1, S2. Regular rate and rhythm. Abdomen soft, no tenderness. Left foot is currently dressed up. No obvious drainage on the dressing. LABS: White count 13.5. Local culture still pending. DIAGNOSTIC IMPRESSION AND PLAN: Patient with left diabetic foot infection status post amputation of left second toe. Cultures are currently pending. Patient is covered with Zosyn and daptomycin to continue. ( ) kidney function. Continue supportive care. MMODL / IJN: [id number] /
[2020-09-09 20:25] LABS: Glucose,Whole Blood 144 mg/dL (75-99)
[2020-09-09] MEDS: ZIPRASIDONE 40 MG CAP PO SCH (20:56)
[2020-09-09] MEDS: traZODone HCL 100 MG TAB PO SCH (20:56)
[2020-09-10] MEDS: SODIUM CHLORIDE 0.9% 1,000 ML IV SCH ×3 (04:41→23:12)
[2020-09-10] MEDS: LACTOBACILLUS ACIDOPH & BULGAR 1 EACH PACKET PO SCH ×4 (04:41→23:13)
[2020-09-10 06:55] LABS: Glucose,Whole Blood 210 mg/dL (75-99)
[2020-09-10] MEDS: HEPARIN SODIUM,PORCINE/PF 5,000 UNIT/0.5 ML SYRINGE SQ SCH ×2 (07:49→20:46)
[2020-09-10] MEDS: INSULIN ASPART (NovoLOG) 100 UNIT/ML VIAL SQ SCH ×7 (07:49→20:47)
[2020-09-10] MEDS: INSULIN DETEMIR (LEVEMIR) 100 UNIT/ML SYR SQ SCH ×2 (07:49→20:49)
[2020-09-10] MEDS: DULoxetine HCL 60 MG CAPSULE.DR PO SCH ×2 (07:50→20:46)
[2020-09-10] MEDS: FAMOTIDINE 20 MG TAB PO SCH (07:50)
[2020-09-10] MEDS: MELOXICAM 7.5 MG TAB PO SCH (07:50)
[2020-09-10] MEDS: busPIRone HCl 10 MG TAB PO SCH ×2 (07:50→20:44)
[2020-09-10] MEDS: PANTOPRAZOLE 40 MG TABLET PO SCH (07:51)
[2020-09-10] MEDS: GABAPENTIN 300 MG CAP PO SCH (07:51)
[2020-09-10] MEDS: LOPERAMIDE 2 MG CAP PO PRN ×2 (07:51→12:23)
[2020-09-10] MEDS: lisinopriL 10 MG TAB PO SCH (07:51)
[2020-09-10] MEDS: POTASSIUM CHLORIDE ER 10 MEQ TAB.ER.PRT PO SCH (07:51)
[2020-09-10] MEDS: hydrOXYzine pamoate 25 MG CAP PO SCH ×2 (07:51→20:44)
[2020-09-10] MEDS: HYDROcodone/APAP 10-325MG 1 EACH TAB PO PRN ×2 (07:51→15:40)
[2020-09-10] MEDS: INDOMETHACIN 25 MG CAP PO SCH ×3 (07:52→20:52)
[2020-09-10] MEDS: LITHIUM CARBONATE 150 MG CAP PO SCH ×2 (07:52→20:49)
[2020-09-10] MEDS: Semaglutide [Rybelsus] 3 MG Tablet PO SCH (08:10)
--- NOTE | 2020-09-10 09:19 | P.PN ---
Subjective Progress Note Date: 09/10/20 Principal diagnosis: foot wound Patient is seen and examined lying in bed. He states he's had tremors for the past three days, however did not mention yesterday or the day before. He is afebrile. IV antibiotics continue. His dressing is clean dry and intact physical therapy has worked with patient. He has a postop shoe that is at the bedside. Objective - Vital Signs Vital signs: Vital Signs Temp 97.9 F 09/10/20 07:28 Pulse 90 09/10/20 07:28 Resp 16 09/10/20 07:28 BP 140/80 09/10/20 07:28 Pulse Ox 94 L 09/10/20 07:28 Intake & Output 09/09/20 09/10/20 09/10/20 18:59 06:59 18:59 Intake Total 150 Balance 150 Intake: Intake, IV Titration 150 Amount DAPTOmycin 900 mg In 50 Sodium Chloride 0.9% 50 ml @ 100 mls/hr IVPB Q48H [facility] Rx#:[id number] Piperacillin-Tazobactam 3 100 .375 gm In Sodium Chloride 0.9% 100 ml @ 25 mls/hr IVPB Q12H [facility] Rx# :[id number] Other: Voiding Method Toilet Toilet # Bowel Movements 1 - Exam General appearance: The patient is alert, oriented, in no acute distress. Obese. HET: Head is normocephalic and atraumatic. Neck: Supple without lymphadenopathy. Trachea midline. Heart: S1 S2. Regular rate and rhythm. Lungs: Clear to auscultation. Abdomen: Soft, nontender, nondistended. Extremities: Bilateral lower extremities with swelling. Left lower extremity dressing clean dry and intact. Swelling to left lower extremity is improved, redness to the anterior aspect of left lower extremity improved. Palpable dorsalis pedis pulse. Neurological: No focal deficits. Strength and sensation are grossly intact. - Labs CBC & Chem 7: 09/09/20 13:25 09/09/20 13:25 Labs: Abnormal Lab Results - Last 24 Hours (Table) 09/09/20 09/09/20 09/09/20 Range/Units 11:54 13:25 13:25 WBC 13.5 H (3.8-10.6) k/uL MCHC 30.4 L (31.0-37.0) g/dL Chloride 108 H (98-107) mmol/L BUN 30 H (9-20) mg/dL Creatinine 4.73 H (0.66-1.25) mg/dL POC Glucose (mg/dL) 254 H (75-99) mg/dL 09/09/20 09/09/20 09/10/20 Range/Units 16:54 20:24 06:51 WBC (3.8-10.6) k/uL MCHC (31.0-37.0) g/dL Chloride (98-107) mmol/L BUN (9-20) mg/dL Creatinine (0.66-1.25) mg/dL POC Glucose (mg/dL) 133 H 144 H 210 H (75-99) mg/dL Microbiology - Last 24 Hours (Table) 09/06/20 12:19 Blood Culture - Preliminary Blood No Growth after 72 hours 09/06/20 12:18 Blood Culture - Preliminary Blood No Growth after 72 hours Assessment and Plan Assessment: 1. Postop day #3 left second toe amputation 2. Infected diabetic foot wound 3. Diabetes 4. History left foot surgery Plan: 1. Continue supportive care 2. Consistent carbohydrate diet 3. Daily wet-to-dry dressing changes 4. Continue IV antibiotics per recommendations from infectious disease, recommend outpatient coverage due to previous foot surgery with hardware 5. Defer medical management per primary medicine team 6. Continue with physical therapy with heel walk only, wear post-op shoe when ambulating. Thank you for this consultation, patient may be discharged home from a vascular surgical standpoint. We will sign off at this t The impression and plan of care has been dictated as directed. Dr. Griffin I performed a history and examination of this patient, discussed the same with the dictator. I agree with the dictator's note ,documented as a scribe. Any additional findings or plans will be noted.
[2020-09-10 10:06] LABS: African American GFR (CKD) 14 (>60 ml/min/1.73 sqM); Anion Gap 9 mmol/L; Blood Urea Nitrogen 32 mg/dL (9-20); Calcium 8.8 mg/dL (8.4-10.2); Carbon Dioxide 17 mmol/L (22-30); Chloride 114 mmol/L (98-107); Glucose 181 mg/dL (74-99); Non-African American GFR(CKD) 12 (>60 ml/min/1.73 sqM); Sodium 140 mmol/L (137-145)
[2020-09-10 10:11] LABS: Potassium 5.8 mmol/L (3.5-5.1)
[2020-09-10] MEDS ORDERED: QUEtiapine 50 MG TAB PO PRN (10:40)
[2020-09-10] MEDS: HYDROmorphone 0.5 MG/0.5 ML SYRINGE IVP PRN (10:41)
[2020-09-10 12:04] LABS: Glucose,Whole Blood 201 mg/dL (75-99)
[2020-09-10] MEDS: PIPERACILLIN-TAZOBACTAM 3.375 GM in SODIUM CHLORIDE 0.9% 100 ML IVPB SCH (12:24)
--- NOTE | 2020-09-10 12:43 | P.CNNES ---
History of Present Illness Consult date: 09/10/20 Requesting physician: Abel Patel Reason for Consult: new onset tremor History of Present Illness: This is a 49-year-old gentleman with medical history of of diabetes mellitus (since 2006), diabetic neuropathy, left foot surgery, hypertension, hyperlipidemia, sleep apnea presented emergency department on 09/06/2020 for left foot pain and swelling. Neurology is consulted for tremor. According to the patient he's been having tremor of bilateral upper extremity as well as the chest region for the last 1 year but has been getting worse. He said that there are brief and there are frequent and that they happen multiple times a day at. He stated that the ad in the last 1 month he was started on lithium for his de pression. He is also on gabapentin 600 mg 1 tablet 3 times a day for years because of his peripheral neuropathy. Patient denies any loss of consciousness with these tremor episodes, urinary incontinence, and any foaming around the mouth, tongue bite or soreness of the tongue. He denies any history of seizures. Per the patient's nurse and she stated that she had that the patient the L4 couple days and that she stated that she has not witnessed at any loss of consciousness, any gaze deviation, any foaming around the mouth. Some of the patient's home medication is gabapentin 600 mg 1 tablet 3 times a day, lithium 450 mg 1 tablet twice a day, Wellbutrin thermogram without twice a day, metformin, lithium temporal, trazodone, insulin, indomethacin, Almont, Cymbalta, Lipitor 20 mg daily. He was sent by her chief console operator regarding chronic wound at the base of the first digit of the left foot and has been having increased pain erythema and drainage from the side of the base of the first and the second toe. Patient was found to have infected diabetic foot wound and had had the left second toe amputation on 09/07/2020. Per the patient's nurse the patient has been having generalized tremor and no jerking if any of the upper or lower extremities no tongue bite no foaming around the mouth the patient's responsive during these episodes. There is no gaze deviation associate with this. The patient does not have any history of seizures. Some of the workup in the hospital consisted of: Initial vital signs was blood pressure of 108/83, heart rate of 90, respiratory of 18, temperature of 98.6 Fahrenheit oral and pulse ox of 96% at room air. Since the patient's current admission the patient has been afebrile. Initial white blood cell was 19.1 and it's predominantly neutrophilic and it's trending down the last one is 13.55. Chemistry panel: On initial presentation the creatinine is 0.60 and now it sits high as a 5.22. Last sodium is 140 which is considered within normal limits. Hemoglobin A1c is 7.9 which is still elevated but his hemoglobin A1c is improving his last one on 06/25/2020 was 8.6 and prior to that the was 9.6. Patient AST is 40, ALT 30, ammonia level is less than 9 was considered within normal limits. Urine drug screen is positive for opiates and marijuana. Ramos level is 1.2 which is a at the borderline of high normal therapeutic range. Review of Systems Review of system: The 12 point system was reviewed and apparent positive and negative per HPI. Past Medical History Past Medical History: Diabetes Mellitus, Hyperlipidemia, Hypertension, Sleep Apnea/CPAP/BIPAP Additional Past Medical History / Comment(s): neuropathy,arthritis gout, depr ession. Crushing injury to left foot metacarpals repaired with plate and 16 screws in past broke lt foot(sx ), myron carpal tunnel. History of Any Multi-Drug Resistant Organisms: None Reported Past Surgical History: Orthopedic Surgery Additional Past Surgical History / Comment(s): lasik eye sx ,left foot surgery. to reprair break-"has 2 plates and 16 screws" left groin boil cellulitis with excision and debriedment and NPWT performed by Dr. Estrella. Past Anesthesia/Blood Transfusion Reactions: No Reported Reaction Past Psychological History: Anxiety, Bipolar, Depression, PTSD Smoking Status: Never smoker Past Alcohol Use History: None Reported Additional Past Alcohol Use History / Comment(s): "haven't drank since New Year's 2018". Past Drug Use History: Cocaine, Marijuana, Opiates, Prescription Drug Abuse Additional Drug Use History / Comment(s): crack cocaine. stated quit all drug use 2016 used crack cocaine today (day of admission 01-22-2019 - Past Family History Mother Family Medical History: Cancer, Diabetes Mellitus Father Family Medical History: Myocardial Infarction ([place]) Additional Family Medical History / Comment(s): stroke Medications and Allergies Home Medications Medication Instructions Recorded Confirmed Type allopurinoL [Zyloprim] 300 mg PO DAILY tab 01/23/18 09/06/20 Rx lisinopriL [Zestril] 10 mg PO DAILY #30 tab 10/21/19 09/06/20 Rx Atorvastatin Calcium [Lipitor] 20 mg PO HS 01/27/20 09/06/20 History metFORMIN HCL [Glucophage] 1,000 mg PO BID 01/27/20 09/06/20 History Famotidine [Pepcid] 20 mg PO BID 06/25/20 09/06/20 History Potassium Chloride ER [K-Dur 10] 10 meq PO DAILY 06/25/20 09/06/20 History Semaglutide [Rybelsus] 3 mg PO DAILY@0700 06/25/20 09/06/20 History DULoxetine HCL [Cymbalta] 60 mg PO BID 30 Days capsule. 07/06/20 09/06/20 Rx INSULIN ASPART (NovoLOG) [NovoLOG 40 unit SQ AC-TID vial 07/06/20 09/06/20 Rx (formulary)] Insulin Detemir (Levemir) [Levemir] 80 unit SQ BID@0700,2100 syr 07/06/20 09/06/20 Rx Ramos Carbonate 450 mg PO BID 30 Days cap 07/06/20 09/06/20 Rx traZODone HCL [Desyrel] 200 mg PO HS 30 Days tab 07/06/20 09/06/20 Rx Gabapentin 600 mg PO TID 09/06/20 09/06/20 History HYDROcodone/APAP 5-325MG [Almont 1 tab PO QID PRN 09/06/20 09/06/20 History 5-325] Indomethacin [Indocin] 25 mg PO TID 09/06/20 09/06/20 History Meloxicam [Mobic] 15 mg PO DAILY 09/06/20 09/06/20 History Naloxone HCl [Narcan] 4 mg NASAL ONCE PRN 09/06/20 09/06/20 History Pantoprazole Sodium [Protonix] 40 mg PO DAILY 09/06/20 09/06/20 History Ziprasidone [Geodon] 40 mg PO HS 09/06/20 09/06/20 History busPIRone HCL [Buspar] 30 mg PO BID 09/06/20 09/06/20 History hydrOXYzine pamoate [hydrOXYzine 25 mg PO BID 09/06/20 09/06/20 History PAMOATE] Allergies Allergy/AdvReac Type Severity Reaction Status Date / Time ibuprofen [From Motrin] Allergy Rash/Hives Verified 09/06/20 12:37 Physical Examination - Vital Signs Vital Signs: Vital Signs Temp Pulse Pulse Resp BP Pulse Ox 09/10/20 08:00 90 16 09/10/20 07:28 97.9 F 90 16 140/80 94 L 09/10/20 02:25 97.6 F 87 20 90/54 93 L 09/09/20 20:00 87 20 09/09/20 19:24 98.0 F 91 20 103/58 95 09/09/20 12:46 97.7 F 69 17 100/61 Intake and Output 09/09/20 09/10/20 09/10/20 22:59 06:59 14:59 Intake Total 150 Balance 150 Intake: Intake, IV Titration 150 Amount DAPTOmycin 900 mg In 50 Sodium Chloride 0.9% 50 ml @ 100 mls/hr IVPB Q48H [facility] Rx#:[id number] Piperacillin-Tazobactam 3 100 .375 gm In Sodium Chloride 0.9% 100 ml @ 25 mls/hr IVPB Q12H [facility] Rx# :[id number] Other: Voiding Method Toilet Toilet # Bowel Movements 1 GENERAL: The patient is lying in bed and is not in acute distress. CHEST: The heart rate is regular rate rhythm. No murmurs to auscultation. No carotid bruit bilaterally. LUNG: Clear to auscultation bilaterally no wheezing noted throughout. Not labored breathing. ABDOMEN/GI: Bowel sounds present in all 4 quadrants. No tenderness to palpation throughout. NEUROLOGICAL: Higher mental function: The patient is awake, alert, oriented to self, place and time. Patient is following commands. No aphasia and no neglect. Cranial nerves: The pupils are round, equal and reactive to light and accommodation. Visual fischer are full to confrontation throughout. Extraocular movement is intact no nystagmus is noted. Facial sensation is normal to touch throughout. The facial strength is normal throughout. Hearing is normal bilaterally to hand rub. Tongue is midline and moved [id number] without any difficulty. No dysarthria is noted. Shoulder shrug is normal bilaterally. Motor: Gait is deferred. The strength is 5 over 5 throughout except left ankle strength is deferred because of his infection and surgery (wrapped). Normal tone and bulk. Patient has repeated spontanous jerks predominately upper, chest and rarely lower but is reponsive during episode and following commands. Cerebellum: Normal finger to nose bilaterally. Sensation: Sensation is normal to touch throughout. Reflexes (right/left): 2+ throughout. Plantars are downgoing bilaterally. Results - Laboratory Findings CBC and BMP: 09/09/20 13:25 09/10/20 07:38 Abnormal Lab Findings: Abnormal Labs 09/06/20 09/06/20 09/06/20 12:19 12:19 16:41 WBC 19.1 H RBC Hgb MCV MCHC Immature Gran # Neutrophils # 14.7 H Monocytes # 1.2 H Eosinophils # Basophils # ESR Sodium 134 L Potassium Chloride Carbon Dioxide BUN Creatinine 0.60 L Glucose 346 H POC Glucose (mg/dL) 262 H Hemoglobin A1c Calcium 8.3 L C-Reactive Protein Albumin 3.4 L Ur Specific [place] Urine Protein Urine Glucose (UA) Urine Ketones Ur Leukocyte Esterase Urine WBC Amorphous Sediment Urine Mucus Vancomycin Trough Urine Opiates Screen U Marijuana (THC) Screen 09/06/20 09/07/20 09/07/20 20:43 07:04 07:48 WBC 16.40 H RBC Hgb MCV MCHC 31.8 L Immature Gran # 0.08 H Neutrophils # 10.39 H Monocytes # 1.43 H Eosinophils # 0.52 H Basophils # 0.12 H ESR Sodium Potassium Chloride Carbon Dioxide BUN Creatinine Glucose POC Glucose (mg/dL) 206 H 102 H Hemoglobin A1c Calcium C-Reactive Protein Albumin Ur Specific [place] Urine Protein Urine Glucose (UA) Urine Ketones Ur Leukocyte Esterase Urine WBC Amorphous Sediment Urine Mucus Vancomycin Trough Urine Opiates Screen U Marijuana (THC) Screen 09/07/20 09/07/20 09/07/20 07:48 07:48 08:04 WBC RBC Hgb MCV MCHC Immature Gran # Neutrophils # Monocytes # Eosinophils # Basophils # ESR Sodium Potassium Chloride Carbon Dioxide BUN Creatinine Glucose 153 H POC Glucose (mg/dL) Hemoglobin A1c 7.9 H Calcium 8.4 L C-Reactive Protein Albumin Ur Specific [place] 1.041 H Urine Protein 1+ H Urine Glucose (UA) Trace H Urine Ketones Trace H Ur Leukocyte Esterase Small H Urine WBC 14 H Amorphous Sediment Rare H Urine Mucus Rare H Vancomycin Trough Urine Opiates Screen Detected H U Marijuana (THC) Screen Detected H 09/07/20 09/07/20 09/07/20 11:57 15:20 16:37 WBC RBC Hgb MCV MCHC Immature Gran # Neutrophils # Monocytes # Eosinophils # Basophils # ESR Sodium Potassium Chloride Carbon Dioxide BUN Creatinine Glucose POC Glucose (mg/dL) 162 H 209 H 197 H Hemoglobin A1c Calcium C-Reactive Protein Albumin Ur Specific [place] Urine Protein Urine Glucose (UA) Urine Ketones Ur Leukocyte Esterase Urine WBC Amorphous Sediment Urine Mucus Vancomycin Trough Urine Opiates Screen U Marijuana (THC) Screen 09/07/20 09/07/20 09/08/20 17:29 20:34 05:32 WBC RBC Hgb MCV MCHC Immature Gran # Neutrophils # Monocytes # Eosinophils # Basophils # ESR Sodium Potassium Chloride Carbon Dioxide BUN 22 H Creatinine 2.62 H Glucose 186 H POC Glucose (mg/dL) 182 H Hemoglobin A1c Calcium 8.2 L C-Reactive Protein 8.8 H Albumin Ur Specific [place] Urine Protein Urine Glucose (UA) Urine Ketones Ur Leukocyte Esterase Urine WBC Amorphous Sediment Urine Mucus Vancomycin Trough 30.5 H* Urine Opiates Screen U Marijuana (THC) Screen 09/08/20 09/08/20 09/08/20 05:32 07:03 11:30 WBC 12.54 H RBC 4.22 L Hgb 12.8 L MCV 97.9 H MCHC 31.0 L Immature Gran # 0.06 H Neutrophils # 7.87 H Monocytes # 1.22 H Eosinophils # 0.41 H Basophils # ESR 46 H Sodium Potassium Chloride Carbon Dioxide BUN Creatinine Glucose POC Glucose (mg/dL) 201 H 67 L Hemoglobin A1c Calcium C-Reactive Protein Albumin Ur Specific [place] Urine Protein Urine Glucose (UA) Urine Ketones Ur Leukocyte Esterase Urine WBC Amorphous Sediment Urine Mucus Vancomycin Trough Urine Opiates Screen U Marijuana (THC) Screen 09/08/20 09/08/20 09/08/20 12:04 16:22 20:16 WBC RBC Hgb MCV MCHC Immature Gran # Neutrophils # Monocytes # Eosinophils # Basophils # ESR Sodium Potassium Chloride Carbon Dioxide BUN Creatinine Glucose POC Glucose (mg/dL) 62 L 150 H 225 H Hemoglobin A1c Calcium C-Reactive Protein Albumin Ur Specific [place] Urine Protein Urine Glucose (UA) Urine Ketones Ur Leukocyte Esterase Urine WBC Amorphous Sediment Urine Mucus Vancomycin Trough Urine Opiates Screen U Marijuana (THC) Screen 0709/09/20 09/09/20 06:43 11:54 13:25 WBC RBC Hgb MCV MCHC Immature Gran # Neutrophils # Monocytes # Eosinophils # Basophils # ESR Sodium Potassium Chloride 108 H Carbon Dioxide BUN 30 H Creatinine 4.73 H Glucose POC Glucose (mg/dL) 206 H 254 H Hemoglobin A1c Calcium C-Reactive Protein Albumin Ur Specific [place] Urine Protein Urine Glucose (UA) Urine Ketones Ur Leukocyte Esterase Urine WBC Amorphous Sediment Urine Mucus Vancomycin Trough Urine Opiates Screen U Marijuana (THC) Screen 09/09/20 09/09/20 09/09/20 13:25 16:54 20:24 WBC 13.5 H RBC Hgb MCV MCHC 30.4 L Immature Gran # Neutrophils # Monocytes # Eosinophils # Basophils # ESR Sodium Potassium Chloride Carbon Dioxide BUN Creatinine Glucose POC Glucose (mg/dL) 133 H 144 H Hemoglobin A1c Calcium C-Reactive Protein Albumin Ur Specific [place] Urine Protein Urine Glucose (UA) Urine Ketones Ur Leukocyte Esterase Urine WBC Amorphous Sediment Urine Mucus Vancomycin Trough Urine Opiates Screen U Marijuana (THC) Screen 09/10/20 09/10/20 06:51 07:38 WBC RBC Hgb MCV MCHC Immature Gran # Neutrophils # Monocytes # Eosinophils # Basophils # ESR Sodium Potassium 5.8 H Chloride 114 H Carbon Dioxide 17 L BUN 32 H Creatinine 5.22 H Glucose 181 H POC Glucose (mg/dL) 210 H Hemoglobin A1c Calcium C-Reactive Protein Albumin Ur Specific [place] Urine Protein Urine Glucose (UA) Urine Ketones Ur Leukocyte Esterase Urine WBC Amorphous Sediment Urine Mucus Vancomycin Trough Urine Opiates Screen U Marijuana (THC) Screen Assessment and Plan Assessment: * Tremors for the past one year but worsening in the last one month (since on Ramos). Seems myoclonus due to medication/metabolic induced (Medication that also cause that is Gabapentin. Also has acute kidney injury). Unlikely seizure. * Acute kidney injury---worsening * Infected diabetic foot wounds status post left second toe amputation on 09/07/2020 * Elevated sugar and his DM remains uncontrolled * Diabetes mellitus * History of left foot surgery * Diabetic neuropathy * History of hypertension * Hyperlipidemia Plan: I ordered the CT of the brain, TSH level. I ordered a routine EEG and I will not start the patient on an antiepileptic drug unless there is epileptiform discharges or seizure in the EEG. I decreased Gabapentin from 600mg 1 tab tid to 400mg bid). If possibly to switch Ramos to another drug since according to patient his tremor/myoclonus has been worsening since being on Ramos but will defer the management to the primary team. We'll defer the rest of the medical management to primary team. Upon discharge the patient needs to follow-up with a neurologist as outpatient within 1-2 weeks. The plan is discussed with the patient's nurse. Thank you for the consultation. Sulaiman Capellan M.D. Neuro-hospitalist Time with Patient: Greater than 30
--- NOTE | 2020-09-10 13:43 | CT ---
EXAMINATION TYPE: CT brain wo con DATE OF EXAM: 09/10/2020 COMPARISON: None HISTORY: foot ulcer, tremor CT DLP: 1098.[address] of the brain was performed. The ventricles, basal cisterns and sulci overlying the cerebral convexities demonstrate mild enlargem ent. There is no evidence for intracranial hemorrhage or sulcal effacement. There is decreased attenuation about the periventricular white matter and deep white matter of both c erebral hemispheres, compatible with chronic small vessel ischemia. Differential diagnosis does inclu de demyelination. No mass effects are seen.No midline shift. Osseous calvarium is intact. If symptoms persist consider MRI. IMPRESSION: 1. Age related atrophic and chronic small vessel ischemic change without acute intracranial process s een at this time.
[2020-09-10 14:45] LABS: Basophils # (A) 0.07 X 10*3/uL (0.00-0.10); Basophils % (A) 0.5 %; Eosinophils # (A) 0.51 X 10*3/uL (0.04-0.35); Eosinophils % (A) 3.5 %; HCT 39.8 % (39.6-50.0); HGB 12.3 g/dL (13.0-17.0); Lymphocytes # (A) 1.98 X 10*3/uL (0.90-5.00); Lymphocytes % (A) 13.4 %; MCH 30.4 pg (27.0-32.0); MCHC 30.9 g/dL (32.0-37.0); MCV 98.5 fL (80.0-97.0); Mean Platelet Volume 11.6 fL (9.5-12.2); Monocytes # (A) 1.18 X 10*3/uL (0.20-1.00); Neutrophils # (A) 10.88 X 10*3/uL (1.80-7.70); Neutrophils % (A) 73.7 %; Platelet Count 280 X 10*3/uL (140-440); RBC 4.04 X 10*6/uL (4.40-5.60); RDW 13.6 % (11.5-14.5); WBC 14.76 X 10*3/uL (4.50-10.00)
[2020-09-10] MEDS: GABAPENTIN 400 MG CAP PO SCH ×2 (15:40→23:13)
[2020-09-10 16:38] LABS: Glucose,Whole Blood 139 mg/dL (75-99)
--- NOTE | 2020-09-10 16:42 | P.PN ---
Subjective Progress Note Date: 09/10/20 This is a 49-year-old gentleman admitted with a left diabetic plantar foot wound, had been following with a consumer marketing analyst, worsened. Reports history of prior surgery to the affected foot with resulting plate with 16 screws. Evaluated by vascular surgery, bone scan in progress. Scheduled for I&D and potentially amputation of first, possibly a second toes. Wound culture pending. Maintained on IV antibiotics of clindamycin and vancomycin. Renal function stable. Afebrile, WBC trending down, 16.4. Blood sugars better controlled. Denies chest pain, palpitations or shortness of breath. 09/08/2020 bone scan reported suspicious for osteomyelitis involving the second digit of the left lower, with likely underlying cellulitis. status post left second toe amputation, postop day #1, tolerated well. Pain controlled. Earlier this morning patient had gotten up to bathroom, with significant bleeding re ported from site. Pressure dressing applied, dressing and currently clean dry and intact, labs pending. Maintained on IV antibiotics daptomycin and Zosyn, and IV fluid hydration. Afebrile. 09/09/2020 maintained on IV antibiotics as per ID. Reported diarrhea, suspect antibiotic related. Lactinex added to med regimen. Hemoglobin stable. Reports throbbing of affected lower extremity. Afebrile, wound cultures pending. Creatinine jumped to 2.62 yesterday; patient had been on vancomycin initially. Maintained on IV fluid hydration. Repeat labs pending. Blood sugars elevated, ranging from 180s to 250s. 09/10/2020 maintained on IV antibiotics, creatinine continues to jump to 5.22, nephrology consulted.potassium 5.8 Developed increasing tremors, lithium level I.2, ammonia level less than 9. Neurology consulted. Noncompliant with consistent carb diet; staff reports family continues to bring him in a nondiabetic food/drink, package of combos sitting on his bedside table. Blood s ugars ranging 180s to 200. Afebrile. Pain had been controlled until he ambulated with PT. Objective - Vital Signs Vital signs: Vital Signs Temp 97.7 F 09/10/20 14:17 Pulse 96 09/10/20 14:17 Resp 18 09/10/20 14:17 BP 138/79 09/10/20 14:17 Pulse Ox 92 L 09/10/20 14:17 Intake & Output 09/09/20 09/10/20 09/10/20 18:59 06:59 18:59 Intake Total 150 Balance 150 Intake: Intake, IV Titration 150 Amount DAPTOmycin 900 mg In 50 Sodium Chloride 0.9% 50 ml @ 100 mls/hr IVPB Q48H [facility] Rx#:[id number] Piperacillin-Tazobactam 3 100 .375 gm In Sodium Chloride 0.9% 100 ml @ 25 mls/hr IVPB Q12H [facility] Rx# :[id number] Other: Voiding Method Toilet Toilet Toilet # Bowel Movements 1 1 - Exam PHYSICAL EXAM: VITAL SIGNS: As above GENERAL: Obese, sitting up in chair, no acute distress HEENT: Conjunctivae normal. eyes normal. NECK: No JVD. No thyroid enlargement. No LNs CARDIOVASCULAR: S1, S2 regular. No murmur RESPIRATION: Breath sounds diminished in the bases. No rhonchi or crackles. No bronchial breathing. ABDOMEN: Soft, nondistended, nontender . No guarding. no masses palpable.Bowel sounds heard. LEGS: Positive swelling of bilateral lower extremity, left foot dressing clean dry and intact, decreased redness of left lower extremity anterior, palpable diminished DP pulse PSYCHIATRY: Alert and oriented X3, mood and affect normal. NERVOUS SYSTEM: Cranial N 2-12 grossly normal. Moves all 4 limbs. No focal deficits.Strength and sensation grossly intact. Spontaneous jerking/twitching chest area. Skin: Warm and dry, no rash. - Labs CBC & Chem 7: 09/10/20 09:35 09/10/20 07:38 Labs: Abnormal Lab Results - Last 24 Hours (Table) 09/09/20 09/09/20 09/10/20 Range/Units 16:54 20:24 06:51 WBC (4.50-10.00) X 10*3/uL RBC (4.40-5.60) X 10*6/uL Hgb (13.0-17.0) g/dL MCV (80.0-97.0) fL MCHC (32.0-37.0) g/dL Immature Gran # (0.00-0.04) X 10*3/uL Neutrophils # (1.80-7.70) X 10*3/uL Monocytes # (0.20-1.00) X 10*3/uL Eosinophils # (0.04-0.35) X 10*3/uL Potassium (3.5-5.1) mmol/L Chloride (98-107) mmol/L Carbon Dioxide (22-30) mmol/L BUN (9-20) mg/dL Creatinine (0.66-1.25) mg/dL Glucose (74-99) mg/dL POC Glucose (mg/dL) 133 H 144 H 210 H (75-99) mg/dL 09/10/20 09/10/20 09/10/20 Range/Units 07:38 09:35 12:00 WBC 14.76 H (4.50-10.00) X 10*3/uL RBC 4.04 L (4.40-5.60) X 10*6/uL Hgb 12.3 L (13.0-17.0) g/dL MCV 98.5 H (80.0-97.0) fL MCHC 30.9 L (32.0-37.0) g/dL Immature Gran # 0.14 H (0.00-0.04) X 10*3/uL Neutrophils # 10.88 H (1.80-7.70) X 10*3/uL Monocytes # 1.18 H (0.20-1.00) X 10*3/uL Eosinophils # 0.51 H (0.04-0.35) X 10*3/uL Potassium 5.8 H (3.5-5.1) mmol/L Chloride 114 H (98-107) mmol/L Carbon Dioxide 17 L (22-30) mmol/L BUN 32 H (9-20) mg/dL Creatinine 5.22 H (0.66-1.25) mg/dL Glucose 181 H (74-99) mg/dL POC Glucose (mg/dL) 201 H (75-99) mg/dL Microbiology - Last 24 Hours (Table) 09/06/20 12:19 Blood Culture - Preliminary Blood No Growth after 96 hours 09/06/20 12:18 Blood Culture - Preliminary Blood No Growth after 96 hours 09/07/20 16:19 Gram Stain - Final Foot - Left Wound Culture - Final Assessment and Plan Assessment: Possible sepsis, present on admission related to Acute Diabetic wound of left foot, failed outpatient treatment Suspicious for osteomyelitis of left foot, second digit status post bone scan, status post amputation of left second toe Acute renal failure, suspect medication induced, patient initially on vancomycin which has been discontinued, worsening Tremors, lithium level high end of therapeutic, possible but doubt seizures, possibly medication related, neurology consulted History of prior left foot surgery with reported plate and 16 screws Diabetes mellitus type 2, hyperglycemic, hemoglobin A1c 7.9. Hyponatremia, resolved Hypertension Hyperlipidemia Obstructive sleep apnea Peripheral neuropathy PTSD, bipolar, depression, anxiety History of cocaine, marijuana, opiates, prescription drug abuse Morbid obesity, BMI 50.2 Plan: Continue on current medication regime ,monitoring and symptomatic treatm ent. Neurology consulted for worsening tremors. Nephrology consulted regarding continued worsening of renal function. Continue IV fluid hydration, F/U Labs pending with close monitoring of renal function-repeat labs ordered for a.m. Cultures pending. IV antibiotics per ID. Levemir further increased .Close monitoring of Accu-Cheks. primary special educator consulted. The impression and plan of care has been dictated as directed. : I performed a history and examination of this patient, discussed the same with the dictator. I agree with the dictator's note ,documented as a scribe. Any additional findings or plans will be noted.
--- NOTE | 2020-09-10 17:27 | PN ---
PROGRESS NOTE DATE OF SERVICE: 09/10/2020 REASON FOR FOLLOWUP: 1. Left flank pain. 2. Left diabetic foot infection. INTERVAL HISTORY: Patient is afebrile. Patient is breathing comfortably. Patient denies having any chest pain, shortness of breath or cough. No abdominal pain. Pain to the left foot wound area. PHYSICAL EXAMINATION: Blood pressure is 130/79, pulse 90, temperature 98.3, 92% on room air. GENERAL DESCRIPTION: Is a middle-aged male up in the chair in no distress. RESPIRATORY SYSTEM: Unlabored breathing and is clear to auscultation anteriorly. HEART: S1, S2. Regular rate and rhythm. ABDOMEN: Soft, nontender. EXTREMITIES: Left foot is currently dressed. LAB: Hemoglobin ( ), white count ( ), BUN of 32, creatinine 5.32. Wound culture so far negative. DIAGNOSTIC IMPRESSION AND PLAN: Patient with left diabetic foot infection status post amputation of the left second toe. Culture has been negative for resistant pathogen. Patient of which has developed worsening of his kidney function. Renal failure. Nephrology will be consulted. With no resistant bacteria, will discontinue daptomycin and Zosyn. Start the patient on Unasyn and monitor clinical course closely. Prognosis remains to be guarded. MMODL / IJN: [id number] /
[2020-09-10 20:33] LABS: Glucose,Whole Blood 158 mg/dL (75-99)
[2020-09-10] MEDS: traZODone HCL 100 MG TAB PO SCH (20:46)
[2020-09-10] MEDS: ZIPRASIDONE 40 MG CAP PO SCH (20:49)
[2020-09-10] MEDS: AMPICILLIN-SULBACTAM 3 GM in SODIUM CHLORIDE 0.9% 100 ML IVPB SCH (23:12)
[2020-09-11] MEDS: SODIUM CHLORIDE 0.9% 1,000 ML IV SCH ×3 (02:21→17:15)
[2020-09-11 06:46] LABS: Glucose,Whole Blood 125 mg/dL (75-99)
[2020-09-11] MEDS: HEPARIN SODIUM,PORCINE/PF 5,000 UNIT/0.5 ML SYRINGE SQ SCH ×2 (08:28→21:15)
[2020-09-11] MEDS: busPIRone HCl 10 MG TAB PO SCH ×2 (08:28→21:16)
[2020-09-11] MEDS: hydrOXYzine pamoate 25 MG CAP PO SCH ×2 (08:29→21:17)
[2020-09-11] MEDS: LACTOBACILLUS ACIDOPH & BULGAR 1 EACH PACKET PO SCH ×3 (08:29→21:21)
[2020-09-11] MEDS: FAMOTIDINE 20 MG TAB PO SCH (08:29)
[2020-09-11] MEDS: DULoxetine HCL 60 MG CAPSULE.DR PO SCH ×2 (08:29→21:17)
[2020-09-11] MEDS: PANTOPRAZOLE 40 MG TABLET PO SCH (08:29)
[2020-09-11] MEDS: INSULIN DETEMIR (LEVEMIR) 100 UNIT/ML SYR SQ SCH ×2 (08:30→21:18)
[2020-09-11] MEDS: INSULIN ASPART (NovoLOG) 100 UNIT/ML VIAL SQ SCH ×7 (08:30→21:16)
[2020-09-11] MEDS: Semaglutide [Rybelsus] 3 MG Tablet PO SCH (08:30)
[2020-09-11] MEDS: AMPICILLIN-SULBACTAM 3 GM in SODIUM CHLORIDE 0.9% 100 ML IVPB SCH ×2 (08:31→21:15)
[2020-09-11] MEDS: GABAPENTIN 100 MG CAP PO SCH ×3 (08:36→21:17)
[2020-09-11 08:39] LABS: ALT 17 U/L (4-49); AST 30 U/L (17-59); African American GFR (CKD) 12 (>60 ml/min/1.73 sqM); Albumin 2.7 g/dL (3.5-5.0); Albumin/Globulin Ratio 0.9; Alkaline Phosphatase 62 U/L (38-126); Anion Gap 7 mmol/L; Blood Urea Nitrogen 32 mg/dL (9-20); Calcium 8.3 mg/dL (8.4-10.2); Carbon Dioxide 21 mmol/L (22-30); Chloride 113 mmol/L (98-107); Globulin 3.1 g/dL; Glucose 127 mg/dL (74-99); Non-African American GFR(CKD) 10 (>60 ml/min/1.73 sqM); Potassium 4.9 mmol/L (3.5-5.1); Sodium 141 mmol/L (137-145); Total Bilirubin 0.3 mg/dL (0.2-1.3); Total Protein 5.8 g/dL (6.3-8.2)
[2020-09-11] MEDS ORDERED: LIDOCAINE URO-JET JELLY 2% 5 ML KIT URETHRAL STA (09:57)
[2020-09-11 11:06] LABS: Basophils # (A) 0.06 X 10*3/uL (0.00-0.10); Basophils % (A) 0.4 %; Eosinophils # (A) 0.61 X 10*3/uL (0.04-0.35); Eosinophils % (A) 4.3 %; HCT 38.7 % (39.6-50.0); HGB 12.1 g/dL (13.0-17.0); Lymphocytes # (A) 2.78 X 10*3/uL (0.90-5.00); Lymphocytes % (A) 19.4 %; MCH 30.5 pg (27.0-32.0); MCHC 31.3 g/dL (32.0-37.0); MCV 97.5 fL (80.0-97.0); Mean Platelet Volume 11.5 fL (9.5-12.2); Monocytes # (A) 1.04 X 10*3/uL (0.20-1.00); Monocytes % (A) 7.3 %; Neutrophils # (A) 9.69 X 10*3/uL (1.80-7.70); Neutrophils % (A) 67.6 %; Platelet Count 271 X 10*3/uL (140-440); RBC 3.97 X 10*6/uL (4.40-5.60); RDW 13.7 % (11.5-14.5); WBC 14.33 X 10*3/uL (4.50-10.00)
[2020-09-11 11:20] LABS: Glucose,Whole Blood 171 mg/dL (75-99)
--- NOTE | 2020-09-11 11:23 | P.NPCON ---
History of Present Illness - Reason for Consult acute renal failure - History of Present Illness Reason for consultation: Acute kidney injury History of present illness: Patient is a 49-year-old male seen in renal consultation for acute kidney injury. Patient presented to the hospital on September 06 due to pain in his left foot. He was noted to have osteomyelitis of the left second toe and underwent amputation on 09/07/2020. He was receiving IV vancomycin and vancomycin level. Noted to be elevated at 30.5 as of 09/07/2020. Additionally he is also receiving lisinopril, Indocin and mobic. He is also on potassium supplementation and lithium. [place] level I.2 as of yesterday. Patient denies any vomiting or diarrhea. He was also noted to have urinary retention and a Jarquin catheter placed this morning. Over 1 L of urine has been obtained. Blood pressure is stable. Currently on room air. Patient's baseline creatinine is near 1 and is up to 5.96 today. Potassium level is normal. Vital signs are stable. General: The patient appeared well nourished and normally developed. HEENT: Head exam is unremarkable. LUNGS: Breath sounds decreased. HEART: Rate and Rhythm are regular. ABDOMEN: Soft, obese. EXTREMITITES: No edema. No drainage noted. Past Medical History Past Medical History: Diabetes Mellitus, Hyperlipidemia, Hypertension, Sleep Apnea/CPAP/BIPAP Additional Past Medical History / Comment(s): neuropathy,arthritis gout, depression. Crushing injury to left foot metacarpals repaired with plate and 16 screws in past broke lt foot(sx ), myron carpal tunnel. History of Any Multi-Drug Resistant Organisms: None Reported Past Surgical History: Orthopedic Surgery Additional Past Surgical History / Comment(s): lasik eye sx ,left foot surgery. to reprair break-"has 2 plates and 16 screws" left groin boil cellulitis with excision and debriedment and NPWT performed by Dr. Estrella. Past Anesthesia/Blood Transfusion Reactions: No Reported Reaction Past Psychological History: Anxiety, Bipolar, Depression, PTSD Smoking Status: Never smoker Past Alcohol Use History: None Reported Additional Past Alcohol Use History / Comment(s): "haven't drank since New 's 2018". Past Drug Use History: Cocaine, Marijuana, Opiates, Prescription Drug Abuse Additional Drug Use History / Comment(s): crack cocaine. stated quit all drug use 2016 used crack cocaine today (day of admission 01-22-2019 - Past Family History Mother Family Medical History: Cancer, Diabetes Mellitus Father Family Medical History: Myocardial Infarction ([place]) Additional Family Medical History / Comment(s): stroke Medications and Allergies Home Medications Medication Instructions Recorded Confirmed Type allopurinoL [Zyloprim] 300 mg PO DAILY tab 01/23/18 09/06/20 Rx lisinopriL [Zestril] 10 mg PO DAILY #30 tab 10/21/19 09/06/20 Rx Atorvastatin Calcium [Lipitor] 20 mg PO HS 01/27/20 09/06/20 History metFORMIN HCL [Glucophage] 1,000 mg PO BID 01/27/20 09/06/20 History Famotidine [Pepcid] 20 mg PO BID 06/25/20 09/06/20 History Potassium Chloride ER [K-Dur 10] 10 meq PO DAILY 06/25/20 09/06/20 History Semaglutide [Rybelsus] 3 mg PO DAILY@0700 06/25/20 09/06/20 History DULoxetine HCL [Cymbalta] 60 mg PO BID 30 Days capsule. 07/06/20 09/06/20 Rx INSULIN ASPART (NovoLOG) [NovoLOG 40 unit SQ AC-TID vial 07/06/20 09/06/20 Rx (formulary)] Insulin Detemir (Levemir) [Levemir] 80 unit SQ BID@0700,2100 syr 07/06/20 0 09/06/20 Rx [place]ou Carbonate 450 mg PO BID 30 Days cap 07/06/20 09/06/20 Rx traZODone HCL [Desyrel] 200 mg PO HS 30 Days tab 07/06/20 09/06/20 Rx Gabapentin 600 mg PO TID 09/06/20 09/06/20 History HYDROcodone/APAP 5-325MG [[place] 1 tab PO QID PRN 09/06/20 09/06/20 History 5-325] Indomethacin [Indocin] 25 mg PO TID 09/06/20 09/06/20 History Meloxicam [Mobic] 15 mg PO DAILY 09/06/20 09/06/20 History Naloxone HCl [Narcan] 4 mg NASAL ONCE PRN 09/06/20 09/06/20 History Pantoprazole Sodium [Protonix] 40 mg PO DAILY 09/06/20 09/06/20 History Ziprasidone [Geodon] 40 mg PO HS 09/06/20 09/06/20 History busPIRone HCL [Buspar] 30 mg PO BID 09/06/20 09/06/20 History hydrOXYzine pamoate [hydrOXYzine 25 mg PO BID 09/06/20 09/06/20 History PAMOATE] Allergies Allergy/AdvReac Type Severity Reaction Status Date / Time ibuprofen [From Motrin] Allergy Rash/Hives Verified 09/06/20 12:37 Physical Exam Vitals: Vital Signs Temp Pulse Resp BP Pulse Ox 09/11/20 07:32 98.4 F 84 18 124/83 96 09/11/20 02:35 98.3 F 88 18 105/61 93 L 09/10/20 20:44 18 09/10/20 19:36 97.5 F L 80 18 112/74 98 09/10/20 14:17 97.7 F 96 18 138/79 92 L Intake and Output 09/10/20 09/11/20 09/11/20 22:59 06:59 14:59 Intake Total 100 Balance 100 Intake: Intake, IV Titration 100 Amount Piperacillin-Tazobactam 3 100 .375 gm In Sodium Chloride 0.9% 100 ml @ 25 mls/hr IVPB Q12H [facility] Rx# :[id number] Other: Voiding Method Toilet Diaper # Bowel Movements 1 2 Results - Lab Results Most recent lab results Calcium 8.3 mg/dL (8.4-10.2) L 09/11/20 07:53 09/11/20 07:53 09/11/20 07:53 Assessment and Plan Plan: Assessment: 1. Acute kidney injury secondary to ATN secondary to vancomycin toxicity and nonsteroidals. Also component of urinary retention. Baseline creatinine near 1 and is up to 5.96 today. 2. Left foot osteomyelitis status post amputation of the left second toe. 3. Metabolic acidosis secondary to acute kidney injury and IV fluids. 4. Diabetes mellitus. 5. Urinary retention status post Jarquin catheter placement. Urology following. Plan: Decrease rate of normal saline to 75 mL an hour. Maintain Jarquin catheter. Check renal ultrasound. Stop lisinopril and potassium supplementation. Stop nonsteroidals. Vancomycin has been discontinued. Decrease dose of gabapentin. Continue to monitor renal function and urine output. Continue to assess daily for need for renal replacement therapy. Thank you for the consultation. I will continue to follow the patient with you during his hospital stay.
[2020-09-11] MEDS ORDERED: TAMSULOSIN 0.4 MG CAP.ER.24H PO STA (15:18)
[2020-09-11] MEDS: HYDROmorphone 0.5 MG/0.5 ML SYRINGE IVP PRN ×2 (15:20→21:21)
--- NOTE | 2020-09-11 15:24 | P.PN ---
Subjective Progress Note Date: 09/11/20 She was seen at bedside and he continues to state that he is having tremor but is responsive during these episodes, no foaming around the mouth no urinary or bowel incontinence. Izaiah Woods is on board for his kidney insufficiency. GENERAL: The patient is lying in bed and is not in acute distress. NEUROLOGICAL: Higher mental function: The patient is awake, alert, oriented to self, place and time. Patient is following commands. No aphasia and no neglect. Cranial nerves: The pupils are round, equal and reactive to light and accommodation. Visual fischer are full to confrontation throughout. Extraocular movement is intact no nystagmus is noted. Facial sensation is normal to touch t hroughout. The facial strength is normal throughout. Hearing is normal bilaterally to hand rub. Tongue is midline and moved [id number] without any difficulty. No dysarthria is noted. Shoulder shrug is normal bilaterally. Motor: Gait is deferred. The strength is 5 over 5 throughout except left ankle strength is deferred because of his infection and surgery (wrapped). Normal tone and bulk. Patient has repeated spontanous jerks predominately upper, chest and rarely lower but is reponsive during episode and following commands. Cerebellum: Normal finger to nose bilaterally. Sensation: Sensation is normal to touch throughout. Reflexes (right/left): 2+ throughout. Plantars are downgoing bilaterally. WORK-UP: CT of the head is reported as age-related atrophic and chronic small vessel i schemic change without acute intracranial process seen at this time. Preliminary EEG on 09/11/2020: It is an abnormal routine EEG. The background slowing is suggestive of mild encephalopathy likely due to toxic-metabolic encephalopathy. There are no focal slowing epileptiform discharges or seizure on the EEG. The tremor seen on the EEG does not correlate with seizure. AST is 40, ALT 30, ammonia level is less than 9 was considered within normal limits. TSH is 0.510 which is considered within normal limits Objective - Vital Signs Vital signs: Vital Signs Temp 98.1 F 09/11/20 14:00 Pulse 98 09/11/20 14:00 Resp 18 09/11/20 14:00 BP 131/85 09/11/20 14:00 Pulse Ox 94 L 09/11/20 14:00 Intake & Output 09/10/20 09/11/20 09/11/20 18:59 06:59 18:59 Intake Total 100 Balance 100 Weight 154.221 kg Intake: Intake, IV Titration 100 Amount Piperacillin-Tazobactam 3 100 .375 gm In Sodium Chloride 0.9% 100 ml @ 25 mls/hr IVPB Q12H [facility] Rx# :[id number] Other: Voiding Method Toilet Toilet Indwelling Catheter Diaper # Bowel Movements 1 2 1 - Labs CBC & Chem 7: 09/11/20 07:53 09/11/20 07:53 Labs: Abnormal Lab Results - Last 24 Hours (Table) 09/10/20 09/10/20 09/11/20 Range/Units 16:37 20:32 06:45 WBC (4.50-10.00) X 10*3/uL RBC (4.40-5.60) X 10*6/uL Hgb (13.0-17.0) g/dL Hct (39.6-50.0) % MCV (80.0-97.0) fL MCHC (32.0-37.0) g/dL Immature Gran # (0.00-0.04) X 10*3/uL Neutrophils # (1.80-7.70) X 10*3/uL Monocytes # (0.20-1.00) X 10*3/uL Eosinophils # (0.04-0.35) X 10*3/uL Chloride (98-107) mmol/L Carbon Dioxide (22-30) mmol/L BUN (9-20) mg/dL Creatinine (0.66-1.25) mg/dL Glucose (74-99) mg/dL POC Glucose (mg/dL) 139 H 158 H 125 H (75-99) mg/dL Calcium (8.4-10.2) mg/dL Total Protein (6.3-8.2) g/dL Albumin (3.5-5.0) g/dL 09/11/20 09/11/20 09/11/20 Range/Units 07:53 07:53 11:19 WBC 14.33 H (4.50-10.00) X 10*3/uL RBC 3.97 L (4.40-5.60) X 10*6/uL Hgb 12.1 L (13.0-17.0) g/dL Hct 38.7 L (39.6-50.0) % MCV 97.5 H (80.0-97.0) fL MCHC 31.3 L (32.0-37.0) g/dL Immature Gran # 0.15 H (0.00-0.04) X 10*3/uL Neutrophils # 9.69 H (1.80-7.70) X 10*3/uL Monocytes # 1.04 H (0.20-1.00) X 10*3/uL Eosinophils # 0.61 H (0.04-0.35) X 10*3/uL Chloride 113 H (98-107) mmol/L Carbon Dioxide 21 L (22-30) mmol/L BUN 32 H (9-20) mg/dL Creatinine 5.96 H (0.66-1.25) mg/dL Glucose 127 H (74-99) mg/dL POC Glucose (mg/dL) 171 H (75-99) mg/dL Calcium 8.3 L (8.4-10.2) mg/dL Total Protein 5.8 L (6.3-8.2) g/dL Albumin 2.7 L (3.5-5.0) g/dL Microbiology - Last 24 Hours (Table) 09/06/20 12:19 Blood Culture - Preliminary Blood No Growth after 120 hours 09/06/20 12:18 Blood Culture - Preliminary Blood No Growth after 120 hours 09/07/20 16:19 Anaerobic Culture - Final Foot - Left Anaerobic Gm Negative Bacilli 09/07/20 16:19 Gram Stain - Final Foot - Left Wound Culture - Final Assessment and Plan Assessment: * Tremors for the past one year but worsening in the last one month (since on [place]). Seems myoclonus due to medication/metabolic induced (Medication t hat also cause that is Gabapentin. Also has acute kidney injury). Unlikely seizure. * Acute kidney injury---worsening * Infected diabetic foot wounds status post left second toe amputation on 09/07/2020 * Elevated sugar and his DM remains uncontrolled * Diabetes mellitus * History of left foot surgery * Diabetic neuropathy * History of hypertension * Hyperlipidemia Plan: Gabapentin was decreased from 400mg bid to 100mg 1 tab tid by nephrology which I agree.. [place] was stopped. We'll defer the rest of the medical management to primary team. Upon discharge the patient needs to follow-up with a neurologist as outpatient within 1-2 weeks. Recommend for the patient to follow-up with a neurologist as outpatient. The plan is discussed with the patient's nurse. Will follow-up with the patient sporadically. Sulaiman Capellan M.D. Neuro-hospitalist Time with Patient: Less than 30
--- NOTE | 2020-09-11 15:35 | P.PN ---
Subjective Progress Note Date: 09/11/20 This is a 49-year-old gentleman admitted with a left diabetic plantar foot wound, had been following with a route manager, worsened. Reports history of prior surgery to the affected foot with resulting plate with 16 screws. Evaluated by vascular surgery, bone scan in progress. Scheduled for I&D and potentially amputation of first, possibly a second toes. Wound culture pending. Maintained on IV antibiotics of clindamycin and vancomycin. Renal function stable. Afebrile, WBC trending down, 16.4. Blood sugars better controlled. Denies chest pain, palpitations or shortness of breath. 09/08/2020 bone scan reported suspicious for osteomyelitis involving the second digit of the left lower, with likely underlying cellulitis. status post left second toe amputation, postop day #1, tolerated well. Pain controlled. Earlier this morning patient had gotten up to bathroom, with significant bleeding re ported from site. Pressure dressing applied, dressing and currently clean dry and intact, labs pending. Maintained on IV antibiotics daptomycin and Zosyn, and IV fluid hydration. Afebrile. 09/09/2020 maintained on IV antibiotics as per ID. Reported diarrhea, suspect antibiotic related. Lactinex added to med regimen. Hemoglobin stable. Reports throbbing of affected lower extremity. Afebrile, wound cultures pending. Creatinine jumped to 2.62 yesterday; patient had been on vancomycin initially. Maintained on IV fluid hydration. Repeat labs pending. Blood sugars elevated, ranging from 180s to 250s. 09/10/2020 maintained on IV antibiotics, creatinine continues to jump to 5.22, nephrology consulted.potassium 5.8 Developed increasing tremors, lithium level I.2, ammonia level less than 9. Neurology consulted. Noncompliant with consistent carb diet; staff reports family continues to bring him in a nondiabetic food/drink, package of combos sitting on his bedside table. Blood s ugars ranging 180s to 200. Afebrile. Pain had been controlled until he ambulated with PT. 09/11/2020 complains of urinary retention, bladder scanned for greater than 400, inability to place urinary catheter-3 attempts, renal function continues to worsen with creatinine up to 5.96. Afebrile, WBC 14.33. Blood sugars better controlled. Levemir increased yesterday, blood sugars better controlled. Hemoglobin 12.1, platelets 271. Objective - Vital Signs Vital signs: Vital Signs Temp 98.1 F 09/11/20 14:00 Pulse 98 09/11/20 14:00 Resp 18 09/11/20 14:00 BP 131/85 09/11/20 14:00 Pulse Ox 94 L 09/11/20 14:00 Intake & Output 09/10/20 09/11/20 09/11/20 18:59 06:59 18:59 Intake Total 100 Balance 100 Weight 154.221 kg Intake: Intake, IV Titration 100 Amount Piperacillin-Tazobactam 3 100 .375 gm In Sodium Chloride 0.9% 100 ml @ 25 mls/hr IVPB Q12H [facility] Rx# :[id number] Other: Voiding Method Toilet Toilet Indwelling Catheter Diaper # Bowel Movements 1 2 1 - Exam PHYSICAL EXAM: VITAL SIGNS: As above GENERAL: Obese, sitting up in chair, no acute distress HEENT: Conjunctivae normal. eyes normal. NECK: No JVD. No thyroid enlargement. No LNs CARDIOVASCULAR: S1, S2 regular. No murmur RESPIRATION: Breath sounds diminished in the bases. No rhonchi or crackles. No bronchial breathing. ABDOMEN: Soft, nondistended, nontender . No guarding. no masses palpable.Bowel sounds heard. LEGS: left foot dressing clean dry and intact, decreased redness of anterior left lower extremity, palpable diminished DP pulse PSYCHIATRY: Alert and oriented X3, mood and affect normal. NERVOUS SYSTEM: Cranial N 2-12 grossly normal. Moves all 4 limbs. No focal deficits.Strength and sensation grossly intact. Spontaneous jerking/twitching upper torso/upper extremities Skin: Warm and dry, no rash. - Labs CBC & Chem 7: 09/11/20 07:53 09/11/20 07:53 Labs: Abnormal Lab Results - Last 24 Hours (Table) 09/10/20 09/10/20 09/11/20 Range/Units 16:37 20:32 06:45 WBC (4.50-10.00) X 10*3/uL RBC (4.40-5.60) X 10*6/uL Hgb (13.0-17.0) g/dL Hct (39.6-50.0) % MCV (80.0-97.0) fL MCHC (32.0-37.0) g/dL Immature Gran # (0.00-0.04) X 10*3/uL Neutrophils # (1.80-7.70) X 10*3/uL Monocytes # (0.20-1.00) X 10*3/uL Eosinophils # (0.04-0.35) X 10*3/uL Chloride (98-107) mmol/L Carbon Dioxide (22-30) mmol/L BUN (9-20) mg/dL Creatinine (0.66-1.25) mg/dL Glucose (74-99) mg/dL POC Glucose (mg/dL) 139 H 158 H 125 H (75-99) mg/dL Calcium (8.4-10.2) mg/dL Total Protein (6.3-8.2) g/dL Albumin (3.5-5.0) g/dL 09/11/20 09/11/20 09/11/20 Range/Units 07:53 07:53 11:19 WBC 14.33 H (4.50-10.00) X 10*3/uL RBC 3.97 L (4.40-5.60) X 10*6/uL Hgb 12.1 L (13.0-17.0) g/dL Hct 38.7 L (39.6-50.0) % MCV 97.5 H (80.0-97.0) fL MCHC 31.3 L (32.0-37.0) g/dL Immature Gran # 0.15 H (0.00-0.04) X 10*3/uL Neutrophils # 9.69 H (1.80-7.70) X 10*3/uL Monocytes # 1.04 H (0.20-1.00) X 10*3/uL Eosinophils # 0.61 H (0.04-0.35) X 10*3/uL Chloride 113 H (98-107) mmol/L Carbon Dioxide 21 L (22-30) mmol/L BUN 32 H (9-20) mg/dL Creatinine 5.96 H (0.66-1.25) mg/dL Glucose 127 H (74-99) mg/dL POC Glucose (mg/dL) 171 H (75-99) mg/dL Calcium 8.3 L (8.4-10.2) mg/dL Total Protein 5.8 L (6.3-8.2) g/dL Albumin 2.7 L (3.5-5.0) g/dL Microbiology - Last 24 Hours (Table) 09/06/20 12:19 Blood Culture - Preliminary Blood No Growth after 120 hours 09/06/20 12:18 Blood Culture - Preliminary Blood No Growth after 120 hours 09/07/20 16:19 Anaerobic Culture - Final Foot - Left Anaerobic Gm Negative Bacilli 09/07/20 16:19 Gram Stain - Final Foot - Left Wound Culture - Final Assessment and Plan Assessment: Possible sepsis, present on admission related to Acute Diabetic wound of left foot, failed outpatient treatment Osteomyelitis of left foot, second digit status post bone scan, status post a mputation of left second toe Acute renal failure, related to ATN secondary to vancomycin, nsaids, urinary retention Metabolic acidosis secondary to the above Urinary retention, Jarquin catheter placement pending Tremors, lithium level high end of therapeutic, possible but doubt seizures, possibly medication related, neurology consulted History of prior left foot surgery with reported plate and 16 screws Diabetes mellitus type 2, hyperglycemic, hemoglobin A1c 7.9. Hyponatremia, resolved Hypertension Hyperlipidemia Obstructive sleep apnea Peripheral neuropathy PTSD, bipolar, depression, anxiety History of cocaine, marijuana, opiates, prescription drug abuse Morbid obesity, BMI 50.2 Plan: Continue on current medication regime ,monitoring and symptomatic treatment. Flomax ordered for urinary retention Urology consulted for Jarquin catheter placement.IV fluid hydration. Cultures pending, IV antibiotics per ID. Close monitoring of Accu-Cheks. Nephrology recommendations noted and apprec iated. Close monitoring of renal function with repeat labs ordered for a.m. The impression and plan of care has been dictated as directed. : I performed a history and examination of this patient, discussed the same with the dictator. I agree with the dictator's note ,documented as a scribe. Any additional findings or plans will be noted.
--- NOTE | 2020-09-11 16:04 | US ---
EXAMINATION TYPE: US kidneys/renal and bladder DATE OF EXAM: 09/11/2020 COMPARISON: CT 2019 CLINICAL HISTORY: emy. Exam done portable. EXAM MEASUREMENTS: Right Kidney: 11.4 x 6.4 x 6.2 cm Left Kidney: 12.4 x 6.6 x 6.4 cm Difficult and limited study due to morbidly obese patient Right Kidney: No hydronephrosis or masses seen Left Kidney: No hydronephrosis or masses seen Bladder: not seen There is no evidence for hydronephrosis at this point in time. No nephrolithiasis is seen. No emma s are identified. IMPRESSION: Unremarkable kidneys.
[2020-09-11 16:19] LABS: Glucose,Whole Blood 184 mg/dL (75-99)
--- NOTE | 2020-09-11 17:06 | P.PN ---
Subjective Progress Note Date: 09/11/20 Patient seen and examined. Overall no complaints other than his tremor Objective - Vital Signs Vital signs: Vital Signs Temp 98.1 F 09/11/20 14:00 Pulse 98 09/11/20 14:00 Resp 18 09/11/20 14:00 BP 131/85 09/11/20 14:00 Pulse Ox 94 L 09/11/20 14:00 Intake & Output 09/10/20 09/11/20 09/11/20 18:59 06:59 18:59 Intake Total 100 Output Total 1000 Balance 100 -1000 Weight 154.221 kg Intake: Intake, IV Titration 100 Amount Piperacillin-Tazobactam 3 100 .375 gm In Sodium Chloride 0.9% 100 ml @ 25 mls/hr IVPB Q12H [facility] Rx# :[id number] Output: Urine 1000 Other: Voiding Method Toilet Toilet Indwelling Catheter Diaper # Bowel Movements 1 2 1 - Exam No acute distress resting comfortably. Asleep exam. Heart appears regular. Lungs are clear. Obese. Wound dressing clean, dry, intact. - Labs CBC & Chem 7: 09/11/20 07:53 09/11/20 07:53 Labs: Abnormal Lab Results - Last 24 Hours (Table) 09/10/20 09/11/20 09/11/20 Range/Units 20:32 06:45 07:53 WBC 14.33 H (4.50-10.00) X 10*3/uL RBC 3.97 L (4.40-5.60) X 10*6/uL Hgb 12.1 L (13.0-17.0) g/dL Hct 38.7 L (39.6-50.0) % MCV 97.5 H (80.0-97.0) fL MCHC 31.3 L (32.0-37.0) g/dL Immature Gran # 0.15 H (0.00-0.04) X 10*3/uL Neutrophils # 9.69 H (1.80-7.70) X 10*3/uL Monocytes # 1.04 H (0.20-1.00) X 10*3/uL Eosinophils # 0.61 H (0.04-0.35) X 10*3/uL Chloride (98-107) mmol/L Carbon Dioxide (22-30) mmol/L BUN (9-20) mg/dL Creatinine (0.66-1.25) mg/dL Glucose (74-99) mg/dL POC Glucose (mg/dL) 158 H 125 H (75-99) mg/dL Calcium (8.4-10.2) mg/dL Total Protein (6.3-8.2) g/dL Albumin (3.5-5.0) g/dL 09/11/20 09/11/20 09/11/20 Range/Units 07:53 11:19 16:17 WBC (4.50-10.00) X 10*3/uL RBC (4.40-5.60) X 10*6/uL Hgb (13.0-17.0) g/dL Hct (39.6-50.0) % MCV (80.0-97.0) fL MCHC (32.0-37.0) g/dL Immature Gran # (0.00-0.04) X 10*3/uL Neutrophils # (1.80-7.70) X 10*3/uL Monocytes # (0.20-1.00) X 10*3/uL Eosinophils # (0.04-0.35) X 10*3/uL Chloride 113 H (98-107) mmol/L Carbon Dioxide 21 L (22-30) mmol/L BUN 32 H (9-20) mg/dL Creatinine 5.96 H (0.66-1.25) mg/dL Glucose 127 H (74-99) mg/dL POC Glucose (mg/dL) 171 H 184 H (75-99) mg/dL Calcium 8.3 L (8.4-10.2) mg/dL Total Protein 5.8 L (6.3-8.2) g/dL Albumin 2.7 L (3.5-5.0) g/dL Microbiology - Last 24 Hours (Table) 09/06/20 12:19 Blood Culture - Preliminary Blood No Growth after 120 hours 09/06/20 12:18 Blood Culture - Preliminary Blood No Growth after 120 hours 09/07/20 16:19 Anaerobic Culture - Final Foot - Left Anaerobic Gm Negative Bacilli Assessment and Plan Assessment: Infected diabetic foot wound Diabetes History of left foot surgery Plan: Continue antibiotics and workup per primary team's for his renal dysfunction and tremors. No further plans for operative intervention at this point. Continue local wound care. Patient will need a follow-up with the wound care team.
--- NOTE | 2020-09-11 17:38 | EEG ---
ELECTROENCEPHALOGRAM REPORT DATE OF SERVICE: 09/11/2020 CLINICAL HISTORY: This is a 49-year-old gentleman who has worsening of his bilateral upper extremity tremors. The video EEG is obtained to evaluate for seizure and epileptiform activity. RELEVANT MEDICATION: The patient is on gabapentin. EEG TYPE: A routine 21 channel EEG is performed with video using the 10/20 electrode placement system. DESCRIPTION: Awake state is only obtained. During the awake state the background consists of low to moderate voltage of poorly modulated, poorly sustained of 7-8 hertz theta activity. There is no sleep architecture seen. There is no focal slowing seen. Interictal and ictal is none. The patient's tremor does not correlate with seizure. ACTIVATION PROCEDURE: Photic stimulation did not evoke a positive driving response. There is no photic abnormality during the photic stimulation. Hyperventilation is not performed. CLINICAL INTERPRETATION: This is an abnormal routine EEG. The background slowing is suggestive of mild encephalopathy likely due to toxic metabolic encephalopathy. There are no focal slowing, epileptiform discharges or seizure on the EEG. The patient's tremor does not correlate with a seizure on this study. Clinical correlation is recommended. MMODL / IJN: [id number] / DEVON
--- NOTE | 2020-09-11 17:46 | PN ---
PROGRESS NOTE DATE OF SERVICE: 09/11/2020 REASON FOR FOLLOWUP: Left diabetic foot infection. INTERVAL HISTORY: Patient is afebrile. The patient is breathing comfortably. Complaining of some discomfort in the left foot area. No chest pain shortness of breath. No cough. No abdominal pain, no diarrhea. PHYSICAL EXAMINATION: Blood pressure 131/85, pulse of 90, temperature 98.1. He is 94% ( ). GENERAL DESCRIPTION: Is a middle-aged male up in the bed in no distress. RESPIRATORY SYSTEM: Unlabored breathing, clear to auscultation anteriorly. HEART: S1, S2. Regular rate and rhythm. ABDOMEN: Soft, no tenderness. EXTREMITIES: Left foot is currently dressed up. No obvious drainage on the dressing. DIAGNOSTIC IMPRESSION AND PLAN: Patient with left diabetic foot infection with gangrene of the left second toe status post amputation. Those cultures are showing anaerobic Gram-negative bacilli. The patient is covered with Unasyn with worsening of his kidney function. Nephrology has been consulted and monitor clinical course closely. MMODL / IJN: [id number] /
[2020-09-11 20:48] LABS: Glucose,Whole Blood 147 mg/dL (75-99)
[2020-09-11] MEDS: traZODone HCL 100 MG TAB PO SCH (21:17)
[2020-09-11] MEDS: ZIPRASIDONE 40 MG CAP PO SCH (21:21)
[2020-09-12 07:05] LABS: Glucose,Whole Blood 149 mg/dL (75-99)
[2020-09-12] MEDS: INSULIN ASPART (NovoLOG) 100 UNIT/ML VIAL SQ SCH ×7 (08:32→22:06)
[2020-09-12] MEDS: Semaglutide [Rybelsus] 3 MG Tablet PO SCH (08:33)
--- NOTE | 2020-09-12 09:52 | P.PN ---
Subjective Progress Note Date: 09/12/20 Principal diagnosis: This is a 49-year-old male admitted with osteomyelitis and was on vancomycin with acute kidney injury. Vancomycin level is 30 on 09/07/2020. He was also on lithium that was discontinued last lithium level is 1.2 dated 09/10/2020 He underwent surgery with amputation of the left second toe on 09/07/2020 This morning he is feeling fairly well except for tremors and asterixis. He is awake alert oriented has a good appetite no nausea vomiting Urine output is 1000 mL for the last 24 hours although his creatinine was going up. He has a Jarquin catheter in place No nausea vomiting diarrhea no fever chills cough. History of present illness: Patient is a 49-year-old male seen in renal consultation for acute kidney injury. Patient presented to the hospital on September 06 due to pain in his left foot. He was noted to have osteomyelitis of the left second toe and underwent amputation on 09/07/2020. He was receiving IV vancomycin and vancomycin level. Noted to be elevated at 30.5 as of 09/07/2020. Additionally he is also receiving lisinopril, Indocin and mobic. He is also on potassium supplementation and lithium. Dustin level I.2 as of yesterday. Patient denies any vomiting or diarrhea. He was also noted to have urinary retention and a Jarquin catheter placed this morning. Over 1 L of urine has been obtained. Blood pressure is stable. Currently on room air. Patient's baseline creatinine is near 1 and is up to 5.96 today. Potassium level is normal. Objective - Vital Signs Vital signs: Vital Signs Temp 98.3 F 09/12/20 08:18 Pulse 98 09/12/20 08:18 Resp 16 09/12/20 08:18 BP 131/83 09/12/20 08:18 Pulse Ox 94 L 09/12/20 08:18 Intake & Output 09/11/20 09/12/20 09/12/20 18:59 06:59 18:59 Output Total 1000 1000 Balance -1000 -1000 Weight 154.221 kg Output: Urine 1000 1000 Other: Voiding Method Indwelling Catheter Indwelling Catheter # Bowel Movements 1 On examination is awake alert oriented comfortable HEENT exam JVP is unable to be detected because of the thick short neck Lungs are clear to auscultation fair air entry bilaterally Heart sounds are unremarkable for any murmur rub gallop Abdomen soft nontender Extremity exam was mild edema Neurologically awake alert oriented with fair amount of asterixis. - Labs CBC & Chem 7: 09/11/20 07:53 09/11/20 07:53 Labs: Abnormal Lab Results - Last 24 Hours (Table) 09/11/20 09/11/20 09/11/20 Range/Units 07:53 11:19 16:17 WBC 14.33 H (4.50-10.00) X 10*3/uL RBC 3.97 L (4.40-5.60) X 10*6/uL Hgb 12.1 L (13.0-17.0) g/dL Hct 38.7 L (39.6-50.0) % MCV 97.5 H (80.0-97.0) fL MCHC 31.3 L (32.0-37.0) g/dL Immature Gran # 0.15 H (0.00-0.04) X 10*3/uL Neutrophils # 9.69 H (1.80-7.70) X 10*3/uL Monocytes # 1.04 H (0.20-1.00) X 10*3/uL Eosinophils # 0.61 H (0.04-0.35) X 10*3/uL POC Glucose (mg/dL) 171 H 184 H (75-99) mg/dL 09/11/20 09/12/20 Range/Units 20:47 07:02 WBC (4.50-10.00) X 10*3/uL RBC (4.40-5.60) X 10*6/uL Hgb (13.0-17.0) g/dL Hct (39.6-50.0) % MCV (80.0-97.0) fL MCHC (32.0-37.0) g/dL Immature Gran # (0.00-0.04) X 10*3/uL Neutrophils # (1.80-7.70) X 10*3/uL Monocytes # (0.20-1.00) X 10*3/uL Eosinophils # (0.04-0.35) X 10*3/uL POC Glucose (mg/dL) 147 H 149 H (75-99) mg/dL Microbiology - Last 24 Hours (Table) 09/06/20 12:19 Blood Culture - Preliminary Blood No Growth after 120 hours 09/06/20 12:18 Blood Culture - Preliminary Blood No Growth after 120 hours 09/07/20 16:19 Anaerobic Culture - Final Foot - Left Anaerobic Gm Negative Bacilli Assessment and Plan Assessment: Impression; 1. Acute kidney injury secondary to ATN secondary to vancomycin toxicity and nonsteroidals. Also component of urinary retention. Baseline creatinine near 1 and is up to 5.96 yesterday and labs today pending . Ultrasound shows 11.4 and 12.4 cm right and left kidney no hydronephrosis 2. Left foot osteomyelitis status post amputation of the left second toe. 3. Metabolic acidosis secondary to acute kidney injury and IV fluids. bicarb is 21 improved 4. Diabetes mellitus. 5. Urinary retention status post Jarquin catheter placement. Urology following. Plan: Continue rate of normal saline to 75 mL an hour. Maintain Jarquin catheter. Stop lisinopril and potassium supplementation. Stop nonsteroidals. Vancomycin has been discontinued. he is off of lithium Agree with the reduction of his multiple psych medications and other medication that might affect his level of consciousness. This includes pain medication Continue to monitor renal function and urine output. Continue to assess daily for need for renal replacement therapy.
[2020-09-12] MEDS: SODIUM CHLORIDE 0.9% 1,000 ML IV SCH ×3 (10:18→22:17)
[2020-09-12] MEDS: GABAPENTIN 100 MG CAP PO SCH ×3 (10:41→22:18)
[2020-09-12] MEDS: hydrOXYzine pamoate 25 MG CAP PO SCH ×2 (10:41→22:04)
[2020-09-12] MEDS: PANTOPRAZOLE 40 MG TABLET PO SCH (10:41)
[2020-09-12] MEDS: INSULIN DETEMIR (LEVEMIR) 100 UNIT/ML SYR SQ SCH ×2 (10:41→22:06)
[2020-09-12] MEDS: LACTOBACILLUS ACIDOPH & BULGAR 1 EACH PACKET PO SCH ×3 (10:41→22:04)
[2020-09-12] MEDS: TAMSULOSIN 0.4 MG CAP.ER.24H PO SCH (10:42)
[2020-09-12] MEDS: AMPICILLIN-SULBACTAM 3 GM in SODIUM CHLORIDE 0.9% 100 ML IVPB SCH ×2 (10:42→22:04)
[2020-09-12] MEDS: DULoxetine HCL 60 MG CAPSULE.DR PO SCH ×2 (10:42→22:05)
[2020-09-12] MEDS: busPIRone HCl 10 MG TAB PO SCH ×2 (10:42→22:06)
[2020-09-12] MEDS: FAMOTIDINE 20 MG TAB PO SCH (10:42)
[2020-09-12] MEDS: HEPARIN SODIUM,PORCINE/PF 5,000 UNIT/0.5 ML SYRINGE SQ SCH ×2 (10:43→22:06)
[2020-09-12] MEDS: HYDROmorphone 0.5 MG/0.5 ML SYRINGE IVP PRN (10:59)
[2020-09-12 11:54] LABS: Glucose,Whole Blood 282 mg/dL (75-99)
--- NOTE | 2020-09-12 12:33 | P.GSCN ---
History of Present Illness Consult date: 09/11/20 Reason for Consult: Urinary Retention Requesting physician: Abel Patel History of present illness: The patient is a 49-year-old white male admitted for treatment of osteomyelitis of the left foot. He was found to be in urinary retention, and attempts by the nursing staff to place a Jarquin catheter were unsuccessful. I am consulted for this reason. The patient denies voiding difficulty. He is a very vague histor kalyani. Review of Systems - Constitutional Denies chills, Denies fever - Cardiovascular Denies chest pain - Respiratory Denies dyspnea - Genitourinary Reports as per HPI Past Medical History Past Medical History: Diabetes Mellitus, Hyperlipidemia, Hypertension, Sleep Apnea/CPAP/BIPAP Additional Past Medical History / Comment(s): neuropathy,arthritis gout, depression. Crushing injury to left foot metacarpals repaired with plate and 16 screws in past broke lt foot(sx ), myron carpal tunnel. History of Any Multi-Drug Resistant Organisms: None Reported Past Surgical History: Orthopedic Surgery Additional Past Surgical History / Comment(s): lasik eye sx ,left foot surgery. to reprair break-"has 2 plates and 16 screws" left groin boil cellulitis with excision and debriedment and NPWT performed by Dr. Estrella. Past Anesthesia/Blood Transfusion Reactions: No Reported Reaction Past Psychological History: Anxiety, Bipolar, Depression, PTSD Smoking Status: Never smoker Past Alcohol Use History: None Reported Additional Past Alcohol Use History / Comment(s): "haven't drank since '2018". Past Drug Use History: Cocaine, Marijuana, Opiates, Prescription Drug Abuse Additional Drug Use History / Comment(s): crack cocaine. stated quit all drug use 2016 used crack cocaine today (day of admission 01-22-2019 - Past Family History Mother Family Medical History: Cancer, Diabetes Mellitus Father Family Medical History: Myocardial Infarction ([place]) Additional Family Medical History / Comment(s): stroke Medications and Allergies Home Medications Medication Instructions Recorded Confirmed Type allopurinoL [Zyloprim] 300 mg PO DAILY tab 01/23/18 09/06/20 Rx lisinopriL [Zestril] 10 mg PO DAILY #30 tab 10/21/19 09/06/20 Rx Atorvastatin Calcium [Lipitor] 20 mg PO HS 01/27/20 09/06/20 History metFORMIN HCL [Glucophage] 1,000 mg PO BID 01/27/20 09/06/20 History Famotidine [Pepcid] 20 mg PO BID 06/25/20 09/06/20 History Potassium Chloride ER [K-Dur 10] 10 meq PO DAILY 06/25/20 09/06/20 History Semaglutide [Rybelsus] 3 mg PO DAILY@0700 06/25/20 09/06/20 History DULoxetine HCL [Cymbalta] 60 mg PO BID 30 Days capsule. 07/06/20 09/06/20 Rx INSULIN ASPART (NovoLOG) [NovoLOG 40 unit SQ AC-TID vial 07/06/20 09/06/20 Rx (formulary)] Insulin Detemir (Levemir) [Levemir] 80 unit SQ BID@0700,2100 syr 07/06/20 09/06/20 Rx [place] Carbonate 450 mg PO BID 30 Days cap 07/06/20 09/06/20 Rx traZODone HCL [Desyrel] 200 mg PO HS 30 Days tab 07/06/20 09/06/20 Rx Gabapentin 600 mg PO TID 09/06/20 09/06/20 History HYDROcodone/APAP 5-325MG [[place] 1 tab PO QID PRN 09/06/20 09/06/20 History 5-325] Indomethacin [Indocin] 25 mg PO TID 09/06/20 09/06/20 History Meloxicam [Mobic] 15 mg PO DAILY 09/06/20 09/06/20 History Naloxone HCl [Narcan] 4 mg NASAL ONCE PRN 09/06/20 09/06/20 History Pantoprazole Sodium [Protonix] 40 mg PO DAILY 09/06/20 09/06/20 History Ziprasidone [Geodon] 40 mg PO HS 09/06/20 09/06/20 History busPIRone HCL [Buspar] 30 mg PO BID 09/06/20 09/06/20 History hydrOXYzine pamoate [hydrOXYzine 25 mg PO BID 09/06/20 09/06/20 History PAMOATE] Allergies Allergy/AdvReac Type Severity Reaction Status Date / Time ibuprofen [From Motrin] Allergy Rash/Hives Verified 09/06/20 12:37 Surgical - Exam Vital Signs Temp Pulse Resp BP Pulse Ox 98.6 F 90 18 108/83 96 09/06/20 12:00 09/06/20 12:00 09/06/20 12:00 09/06/20 12:00 09/06/20 12:00 - General well developed, well nourished, no distress - Respiratory normal respiratory effort - Abdomen Abdomen: soft, non tender, no guarding, no rigid, no rebound, no distended - Genitourinary Uncircumcised phallus with phimosis. The penis is retracted. The scrotum and testes are normal. - Psychiatric oriented to time, oriented to person, oriented to place, speech is normal, memory intact Results - Labs 09/11/20 07:53 09/11/20 07:53 Abnormal Lab Results - Last 24 Hours (Table) 09/10/20 09/10/20 09/10/20 Range/Units 09:35 12:00 16:37 WBC 14.76 H (4.50-10.00) X 10*3/uL RBC 4.04 L (4.40-5.60) X 10*6/uL Hgb 12.3 L (13.0-17.0) g/dL MCV 98.5 H (80.0-97.0) fL MCHC 30.9 L (32.0-37.0) g/dL Immature Gran # 0.14 H (0.00-0.04) X 10*3/uL Neutrophils # 10.88 H (1.80-7.70) X 10*3/uL Monocytes # 1.18 H (0.20-1.00) X 10*3/uL Eosinophils # 0.51 H (0.04-0.35) X 10*3/uL Chloride (98-107) mmol/L Carbon Dioxide (22-30) mmol/L BUN (9-20) mg/dL Creatinine (0.66-1.25) mg/dL Glucose (74-99) mg/dL POC Glucose (mg/dL) 201 H 139 H (75-99) mg/dL Calcium (8.4-10.2) mg/dL Total Protein (6.3-8.2) g/dL Albumin (3.5-5.0) g/dL 09/10/20 09/11/20 09/11/20 Range/Units 20:32 06:45 07:53 WBC (4.50-10.00) X 10*3/uL RBC (4.40-5.60) X 10*6/uL Hgb (13.0-17.0) g/dL MCV (80.0-97.0) fL MCHC (32.0-37.0) g/dL Immature Gran # (0.00-0.04) X 10*3/uL Neutrophils # (1.80-7.70) X 10*3/uL Monocytes # (0.20-1.00) X 10*3/uL Eosinophils # (0.04-0.35) X 10*3/uL Chloride 113 H (98-107) mmol/L Carbon Dioxide 21 L (22-30) mmol/L BUN 32 H (9-20) mg/dL Creatinine 5.96 H (0.66-1.25) mg/dL Glucose 127 H (74-99) mg/dL POC Glucose (mg/dL) 158 H 125 H (75-99) mg/dL Calcium 8.3 L (8.4-10.2) mg/dL Total Protein 5.8 L (6.3-8.2) g/dL Albumin 2.7 L (3.5-5.0) g/dL Microbiology - Last 24 Hours (Table) 09/06/20 12:19 Blood Culture - Preliminary Blood No Growth after 96 hours 09/06/20 12:18 Blood Culture - Preliminary Blood No Growth after 96 hours 09/07/20 16:19 Gram Stain - Final Foot - Left Wound Culture - Final Diabetes panel 09/11/20 Range/Units 07:53 Sodium 141 (137-145) mmol/L Potassium 4.9 (3.5-5.1) mmol/L Chloride 113 H (98-107) mmol/L Carbon Dioxide 21 L (22-30) mmol/L BUN 32 H (9-20) mg/dL Creatinine 5.96 H (0.66-1.25) mg/dL Glucose 127 H (74-99) mg/dL Calcium 8.3 L (8.4-10.2) mg/dL AST 30 (17-59) U/L ALT 17 (4-49) U/L Alkaline Phosphatase 62 (38-126) U/L Total Protein 5.8 L (6.3-8.2) g/dL Albumin 2.7 L (3.5-5.0) g/dL Thyroid panel 09/10/20 Range/Units 09:35 TSH 0.510 (0.350-5.500) uIU/mL Calcium panel 09/11/20 Range/Units 07:53 Calcium 8.3 L (8.4-10.2) mg/dL Albumin 2.7 L (3.5-5.0) g/dL Pituitary panel 09/10/20 09/11/20 Range/Units 09:35 07:53 Sodium 141 (137-145) mmol/L Potassium 4.9 (3.5-5.1) mmol/L Chloride 113 H (98-107) mmol/L Carbon Dioxide 21 L (22-30) mmol/L BUN 32 H (9-20) mg/dL Creatinine 5.96 H (0.66-1.25) mg/dL Glucose 127 H (74-99) mg/dL Calcium 8.3 L (8.4-10.2) mg/dL TSH 0.510 (0.350-5.500) uIU/mL Adrenal panel 09/11/20 Range/Units 07:53 Sodium 141 (137-145) mmol/L Potassium 4.9 (3.5-5.1) mmol/L Chloride 113 H (98-107) mmol/L Carbon Dioxide 21 L (22-30) mmol/L BUN 32 H (9-20) mg/dL Creatinine 5.96 H (0.66-1.25) mg/dL Glucose 127 H (74-99) mg/dL Calcium 8.3 L (8.4-10.2) mg/dL Total Bilirubin 0.3 (0.2-1.3) mg/dL AST 30 (17-59) U/L ALT 17 (4-49) U/L Alkaline Phosphatase 62 (38-126) U/L Total Protein 5.8 L (6.3-8.2) g/dL Albumin 2.7 L (3.5-5.0) g/dL Assessment and Plan (1) Bladder retention Current Visit: Yes Status: Acute Code(s): R33.9 - RETENTION OF URINE, UNSPECIFIED SNOMED Code(s): 689749158 (2) Phimosis Current Visit: Yes Status: Acute Code(s): N47.1 - PHIMOSIS SNOMED Code(s): 863872888 Plan: It is impossible to retract the foreskin, and given the patient's obesity grasping the penis is somewhat difficult. Nonetheless, I was able to prep the penile foreskin with Betadine solution. A Jarquin catheter was advanced through the foreskin opening and guided into the urethral meatus. It was then advanced into the bladder, with return of 500 mL of clear yellow urine. An exact cause of the retention has not been identified. Possible etiologies include a hypotonic bladder due to diabetes mellitus. His bedridden status may also be a contributing factor. The catheter may be removed when no longer medically needed. However, I would request that the catheter be removed early in the morning in the event that Jarquin catheter replacement is required. Please notify us if the patient continues to empty his bladder and completely.
[2020-09-12 15:20] LABS: African American GFR (CKD) 11.3 (60.0-200.0); Anion Gap 5.8 mmol/L (4.00-12.00); BUN/Creat Ratio 6.39 Ratio (12.00-20.00); Calcium 8.1 mg/dL (8.7-10.3); Carbon Dioxide 20.2 mmol/L (21.6-31.8); Magnesium 2.5 mg/dL (1.5-2.4); Non-African American GFR(CKD) 9.7 (60.0-200.0)
--- NOTE | 2020-09-12 15:43 | P.PN ---
Subjective this is the first day i am taking care of the pt covering over the weekend This is a pleasant 18 years old male with past medical history of diabetes mellitus, hypertension, hyperlipidemia, obesity, sleep apnea on CPAP/BiPAP, depression/bipolar/anxiety, and PTSD. Was admitted for diabetic foot ulcers and developed acute kidney injury. Today he is awake and alert, is complaining of from tremor in his both hands. Pain is controlled. He is hemodynamically stable Labs showing leukocytosis of 14.3 K. Elevated ESR of 46 and C-reactive protein of 8.8. Creatinine is elevated at 6.1. Glucose is controlled. Patient currently is on Unasyn, normal sinus 75 mL/h, Objective - Vital Signs Vital signs: Vital Signs Temp 98.3 F 09/12/20 08:18 Pulse 98 09/12/20 08:18 Resp 16 09/12/20 08:18 BP 131/83 09/12/20 08:18 Pulse Ox 94 L 09/12/20 08:18 Intake & Output 09/11/20 09/12/20 09/12/20 18:59 06:59 18:59 Output Total 1000 1000 Balance -1000 -1000 Weight 154.221 kg Output: Urine 1000 1000 Other: Voiding Method Indwelling Catheter Indwelling Catheter Indwelling Catheter # Bowel Movements 1 - Labs CBC & Chem 7: 09/11/20 07:53 09/12/20 07:05 Labs: Abnormal Lab Results - Last 24 Hours (Table) 09/11/20 09/11/20 09/12/20 Range/Units 16:17 20:47 07:02 Chloride (96-109) mmol/L Carbon Dioxide (21.6-31.8) mmol/L BUN (9.0-27.0) mg/dL Creatinine (0.6-1.5) mg/dL Est GFR (CKD-EPI)AfAm (60.0-200.0) Est GFR (CKD-EPI)NonAf (60.0-200.0) BUN/Creatinine Ratio (12.00-20.00) Ratio Glucose (70-110) mg/dL POC Glucose (mg/dL) 184 H 147 H 149 H (75-99) mg/dL Calcium (8.7-10.3) mg/dL Magnesium (1.5-2.4) mg/dL 09/12/20 09/12/20 Range/Units 07:05 11:52 Chloride 114 H (96-109) mmol/L Carbon Dioxide 20.2 L (21.6-31.8) mmol/L BUN 39.0 H (9.0-27.0) mg/dL Creatinine 6.1 H (0.6-1.5) mg/dL Est GFR (CKD-EPI)AfAm 11.3 L (60.0-200.0) Est GFR (CKD-EPI)NonAf 9.7 L (60.0-200.0) BUN/Creatinine Ratio 6.39 L (12.00-20.00) Ratio Glucose 143 H (70-110) mg/dL POC Glucose (mg/dL) 282 H (75-99) mg/dL Calcium 8.1 L (8.7-10.3) mg/dL Magnesium 2.5 H (1.5-2.4) mg/dL Microbiology - Last 24 Hours (Table) 09/06/20 12:19 Blood Culture - Final Blood No Growth after 144 hours 09/06/20 12:18 Blood Culture - Final Blood No Growth after 144 hours 09/07/20 16:19 Anaerobic Culture - Final Foot - Left Anaerobic Gm Negative Bacilli Anaerobic Gm Negative Bacilli#2 Assessment and Plan Assessment: Diabetic left ulcer with osteomyelitis Acute kidney injury Urinary retention Chronic tremor for 1 year with recent worsening over one month, suspected due to lithium and gabapentin may be contributing History of depression/bipolar/anxiety, and PTSD. No connective tissue Hypertension Hyperlipidemia Diabetes mellitus Sleep apnea Morbid obesity with BMI of 50.2 Plan: This is a pleasant 49 this old male who presents with diabetic foot ulcer myelitis,HAIandtremor. Continue With Unasyn, continue with gentle hydration. Hold LISINOPRIL and NSAIDs and monitor kidney function and urine output Continue Jarquin catheter Continue with insulin and monitor her glucose.Labs and medication were reviewed.. Continue same treatment. Continue with symptomatic treatment. Res ume home medication. Monitor lytes and vitals. DVT and GI prophylaxis. Further recommendationsas per clinical course of the patient DVT prophylaxis: Subcutaneous heparin GI Prophylaxis: Pepcid PT/OT: Recommended home care which is ordered Prognosis is guarded
[2020-09-12 17:01] LABS: Glucose,Whole Blood 105 mg/dL (75-99)
--- NOTE | 2020-09-12 18:14 | P.PN ---
Subjective Progress Note Date: 09/12/20 patient is doing relatively well. No complaints of any pain in his lower extremity. Still having issues with tremors and worsening renal function. Left lower extremity dressing is changed. Objective - Vital Signs Vital signs: Vital Signs Temp 98 F 09/12/20 13:57 Pulse 95 09/12/20 13:57 Resp 17 09/12/20 13:57 BP 102/65 09/12/20 13:57 Pulse Ox 96 09/12/20 13:57 Intake & Output 09/11/20 09/12/20 09/12/20 18:59 06:59 18:59 Output Total 1000 1000 1000 Balance -1000 -1000 -1000 Weight 154.221 kg Output: Urine 1000 1000 1000 Other: Voiding Method Indwelling Catheter Indwelling Catheter Indwelling Catheter # Bowel Movements 1 - Labs CBC & Chem 7: 09/11/20 07:53 09/12/20 07:05 Labs: Abnormal Lab Results - Last 24 Hours (Table) 09/11/20 09/12/20 09/12/20 Range/Units 20:47 07:02 07:05 Chloride 114 H (96-109) mmol/L Carbon Dioxide 20.2 L (21.6-31.8) mmol/L BUN 39.0 H (9.0-27.0) mg/dL Creatinine 6.1 H (0.6-1.5) mg/dL Est GFR (CKD-EPI)AfAm 11.3 L (60.0-200.0) Est GFR (CKD-EPI)NonAf 9.7 L (60.0-200.0) BUN/Creatinine Ratio 6.39 L (12.00-20.00) Ratio Glucose 143 H (70-110) mg/dL POC Glucose (mg/dL) 147 H 149 H (75-99) mg/dL Calcium 8.1 L (8.7-10.3) mg/dL Magnesium 2.5 H (1.5-2.4) mg/dL 09/12/20 09/12/20 Range/Units 11:52 16:59 Chloride (96-109) mmol/L Carbon Dioxide (21.6-31.8) mmol/L BUN (9.0-27.0) mg/dL Creatinine (0.6-1.5) mg/dL Est GFR (CKD-EPI)AfAm (60.0-200.0) Est GFR (CKD-EPI)NonAf (60.0-200.0) BUN/Creatinine Ratio (12.00-20.00) Ratio Glucose (70-110) mg/dL POC Glucose (mg/dL) 282 H 105 H (75-99) mg/dL Calcium (8.7-10.3) mg/dL Magnesium (1.5-2.4) mg/dL Microbiology - Last 24 Hours (Table) 09/06/20 12:19 Blood Culture - Final Blood No Growth after 144 hours 09/06/20 12:18 Blood Culture - Final Blood No Growth after 144 hours 09/07/20 16:19 Anaerobic Culture - Final Foot - Left Anaerobic Gm Negative Bacilli Anaerobic Gm Negative Bacilli#2 Assessment and Plan Assessment: postoperative left second toe amputation Acute kidney injury Infected diabetic foot wound Diabetes History of left foot surgery Plan: Continue antibiotics and workup per primary team's for his renal dysfunction and tremors. No further plans for operative intervention at this point. Continue local wound care. Patient will need a follow-up with the wound care team.
--- NOTE | 2020-09-12 21:10 | PN ---
PROGRESS NOTE DATE OF SERVICE: 09/12/2020 REASON FOR FOLLOWUP: Left 2nd toe gangrene diabetic foot infection. INTERVAL HISTORY: The patient is afebrile. The patient is breathing comfortably. Denies having any chest pain, shortness of breath, abdominal pain, or worsening pain to the left foot. PHYSICAL EXAMINATION: Blood pressure 102/65, pulse of 95, temperature 98. He is 97% on room air. GENERAL DESCRIPTION: Is a middle-aged male lying in bed in no distress. RESPIRATORY SYSTEM: Unlabored breathing, clear to auscultation anteriorly. HEART: S1, S2. Regular rate. No tenderness. EXTREMITIES: Left foot 2nd toe wound intact. LABS: Wound culture with anaerobic Gram-negative bacilli. DIAGNOSTIC IMPRESSION AND PLAN: Patient with left diabetic foot infection with left second toe gangrene status post amputation. Culture with anaerobic gram-negative. Patient is covered with Unasyn. He did have worsening of his kidney function with the patient being monitored by Nephrology. Continue supportive care. MMODL / IJN: [id number] /
[2020-09-12 21:52] LABS: Glucose,Whole Blood 88 mg/dL (75-99)
[2020-09-12] MEDS: traZODone HCL 100 MG TAB PO SCH (22:05)
[2020-09-12] MEDS: ZIPRASIDONE 40 MG CAP PO SCH (22:05)
[2020-09-13 06:55] LABS: Glucose,Whole Blood 100 mg/dL (75-99)
[2020-09-13] MEDS: Semaglutide [Rybelsus] 3 MG Tablet PO SCH (08:58)
[2020-09-13] MEDS: AMPICILLIN-SULBACTAM 3 GM in SODIUM CHLORIDE 0.9% 100 ML IVPB SCH ×2 (09:08→21:43)
[2020-09-13] MEDS: busPIRone HCl 10 MG TAB PO SCH ×2 (09:12→21:44)
[2020-09-13] MEDS: TAMSULOSIN 0.4 MG CAP.ER.24H PO SCH (09:12)
[2020-09-13] MEDS: FAMOTIDINE 20 MG TAB PO SCH (09:12)
[2020-09-13] MEDS: INSULIN DETEMIR (LEVEMIR) 100 UNIT/ML SYR SQ SCH ×2 (09:13→21:45)
[2020-09-13] MEDS: INSULIN ASPART (NovoLOG) 100 UNIT/ML VIAL SQ SCH ×7 (09:13→21:45)
[2020-09-13] MEDS: GABAPENTIN 100 MG CAP PO SCH (09:13)
[2020-09-13] MEDS: DULoxetine HCL 60 MG CAPSULE.DR PO SCH ×2 (09:13→21:44)
[2020-09-13] MEDS: LACTOBACILLUS ACIDOPH & BULGAR 1 EACH PACKET PO SCH ×3 (09:13→21:47)
[2020-09-13] MEDS: PANTOPRAZOLE 40 MG TABLET PO SCH (09:13)
[2020-09-13] MEDS: HEPARIN SODIUM,PORCINE/PF 5,000 UNIT/0.5 ML SYRINGE SQ SCH ×2 (09:14→21:46)
[2020-09-13] MEDS: hydrOXYzine pamoate 25 MG CAP PO SCH ×2 (09:14→21:44)
--- NOTE | 2020-09-13 09:31 | XR ---
EXAMINATION TYPE: XR chest 1V DATE OF EXAM: 09/13/2020 COMPARISON: 10/20/2019 HISTORY: 49 years Male. STUDY INDICATION GIVEN: Shortness of breath TECHNIQUE: AP portable chest radiograph FINDINGS AND IMPRESSION: Low lung volumes with prominence of the interstitium which could reflect mild pulmonary edema, small airway disease or atypical viral infection. Bibasilar opacities favored to represent atelectasis associated with low lung volume. No pneumothorax or pleural effusion. Cardiomediastinal silhouette within normal. No acute osseous abnormality.
[2020-09-13] MEDS: HYDROcodone/APAP 10-325MG 1 EACH TAB PO PRN ×3 (09:46→19:35)
--- NOTE | 2020-09-13 09:52 | P.PN ---
Subjective Progress Note Date: 09/13/20 Principal diagnosis: This is a 49-year-old male admitted with osteomyelitis and was on vancomycin with acute kidney injury. Vancomycin level is 30 on 09/07/2020. He was also on lithium that was discontinued last lithium level is 1.2 dated 09/10/2020 He underwent surgery with amputation of the left second toe on 09/07/2020 This morning he is feeling fairly well the tremors that he had yesterday are much better. He is making fair amount of urine although not recorded very well. The nursing staff assures me that he is making more urine than his documented Labs are pending as of this morning He is awake alert and oriented. He has a Jarquin catheter in place. No fever chills nausea vomiting. Does have some loose stools. History of present illness: Patient is a 49-year-old male seen in renal consultation for acute kidney injury. Patient presented to the hospital on September 06 due to pain in his left foot. He was noted to have osteomyelitis of the left second toe and underwent amputation on 09/07/2020. He was receiving IV vancomycin and vancomycin level. Noted to be elevated at 30.5 as of 09/07/2020. Additionally he is also receiving lisinopril, Indocin and mobic. He is also on potassium supplementation and lithium. [place] level I.2 as of yesterday. Patient denies any vomiting or diarrhea. He was also noted to have urinary retention and a Jarquin catheter placed this morning. Over 1 L of urine has been obtained. Blood pressure is stable. Currently on room air. Patient's baseline creatinine is near 1 and is up to 5.96 today. Potassium level is normal. Objective - Vital Signs Vital signs: Vital Signs Temp 97.7 F 09/13/20 08:00 Pulse 89 09/13/20 08:00 Resp 16 09/13/20 08:00 BP 154/83 09/13/20 08:00 Pulse Ox 98 09/13/20 08:00 Intake & Output 09/12/20 09/13/20 09/13/20 18:59 06:59 18:59 Output Total 1000 900 Balance -1000 -900 Output: Urine 1000 900 Other: Voiding Method Indwelling Catheter Indwelling Catheter Indwelling Catheter # Bowel Movements 1 Examination awake alert. Oriented He is morbidly obese therefore JVP is difficult to see neck is supple no facial asymmetry Lungs are in his breath sounds because of his massive obesity. Heart sounds are unremarkable although distant Abdomen soft obese protuberant nontender Extremity exam was mild edema Neurologically awake alert oriented with tremors but no asterixis is noted to - Labs CBC & Chem 7: 09/11/20 07:53 09/12/20 07:05 Labs: Abnormal Lab Results - Last 24 Hours (Table) 09/12/20 09/12/20 09/12/20 Range/Units 07:05 11:52 16:59 Chloride 114 H (96-109) mmol/L Carbon Dioxide 20.2 L (21.6-31.8) mmol/L BUN 39.0 H (9.0-27.0) mg/dL Creatinine 6.1 H (0.6-1.5) mg/dL Est GFR (CKD-EPI)AfAm 11.3 L (60.0-200.0) Est GFR (CKD-EPI)NonAf 9.7 L (60.0-200.0) BUN/Creatinine Ratio 6.39 L (12.00-20.00) Ratio Glucose 143 H (70-110) mg/dL POC Glucose (mg/dL) 282 H 105 H (75-99) mg/dL Calcium 8.1 L (8.7-10.3) mg/dL Magnesium 2.5 H (1.5-2.4) mg/dL 09/13/20 Range/Units 06:51 Chloride (96-109) mmol/L Carbon Dioxide (21.6-31.8) mmol/L BUN (9.0-27.0) mg/dL Creatinine (0.6-1.5) mg/dL Est GFR (CKD-EPI)AfAm (60.0-200.0) Est GFR (CKD-EPI)NonAf (60.0-200.0) BUN/Creatinine Ratio (12.00-20.00) Ratio Glucose (70-110) mg/dL POC Glucose (mg/dL) 100 H (75-99) mg/dL Calcium (8.7-10.3) mg/dL Magnesium (1.5-2.4) mg/dL Microbiology - Last 24 Hours (Table) 09/06/20 12:19 Blood Culture - Final Blood No Growth after 144 hours 09/06/20 12:18 Blood Culture - Final Blood No Growth after 144 hours 09/07/20 16:19 Anaerobic Culture - Final Foot - Left Anaerobic Gm Negative Bacilli Anaerobic Gm Negative Bacilli#2 Assessment and Plan Assessment: Impression; 1. Acute kidney injury secondary to ATN secondary to vancomycin toxicity and nonsteroidals. Also component of urinary retention. Baseline creatinine near 1 and is up to 5.96 > 6.1 yesterday and labs today pending . Ultrasound shows 11.4 and 12.4 cm right and left kidney no hydronephrosis 2. Left foot osteomyelitis status post amputation of the left second toe. 3. Metabolic acidosis secondary to acute kidney injury and IV fluids. bicarb is 20.2 improved 4. Diabetes mellitus. 5. Urinary retention status post Jarquin catheter placement. Urology following. Plan: 1. Continue rate of normal saline to 75 mL an hour. 2. Maintain Jarquin catheter. 3. Pending labs, hoping to see some recovery and not therefore needing dialysis support 4. Vancomycin has been discontinued. he is off of lithium 5. Agree with the reduction of his multiple psych medications and other medication that might affect his level of consciousness. This includes pain medication 6. Continue to monitor renal function and urine output. Continue to assess daily for need for renal replacement therapy.
[2020-09-13 09:53] LABS: Basophils % (A) 0.6 %; Eosinophils % (A) 4.5 %; HGB 12.5 g/dL (13.0-17.0); Lymphocytes # (A) 2.92 X 10*3/uL (0.90-5.00); Lymphocytes % (A) 18.9 %; MCH 29.7 pg (27.0-32.0); MCHC 30.5 g/dL (32.0-37.0); MCV 97.4 fL (80.0-97.0); Mean Platelet Volume 11.2 fL (9.5-12.2); Monocytes # (A) 1.44 X 10*3/uL (0.20-1.00); Monocytes % (A) 9.3 %; Neutrophils # (A) 9.75 X 10*3/uL (1.80-7.70); Neutrophils % (A) 63.3 %; Platelet Count 289 X 10*3/uL (140-440); RBC 4.21 X 10*6/uL (4.40-5.60); RDW 13.9 % (11.5-14.5); WBC 15.43 X 10*3/uL (4.50-10.00)
--- NOTE | 2020-09-13 10:38 | P.PN ---
Subjective Progress Note Date: 09/13/20 The patient was seen at bedside and continues to have myoclonus, tremors of bilateral upper extremities and shoulder. He feels it is somewhat better today compared to yesterday. Patient creatinine continues to be worsening. On initial presentation it was normal and most recent Creatninge is 6.1. BUN on presentation 14 and most recent 39.0. Magnesium is 2.5 is slightly elevated (1.5-2.4). Patient has been afebrile. His leukocytosis is trending down (initially 19.1 and now 14.3). Objective - Vital Signs Vital signs: Vital Signs Temp 97.7 F 09/13/20 08:00 Pulse 89 09/13/20 08:00 Resp 16 09/13/20 08:00 BP 154/83 09/13/20 08:00 Pulse Ox 98 09/13/20 08:00 Intake & Output 09/12/20 09/13/20 09/13/20 18:59 06:59 18:59 Output Total 1000 900 Balance -1000 -900 Output: Urine 1000 900 Other: Voiding Method Indwelling Catheter Indwelling Catheter Indwelling Catheter # Bowel Movements 1 - Exam GENERAL: The patient is lying in bed and is not in acute distress. NEUROLOGICAL: Higher mental function: The patient is awake, alert, oriented to self, place and time. Patient is following commands. No aphasia and no neglect. Cranial nerves: The pupils are round, equal and reactive to light and accommodation. Visual fischer are full to confrontation throughout. Extraocular movement is intact no nystagmus is noted. Facial sensation is normal to touch throughout. The facial strength is normal throughout. Hearing is normal bilaterally to hand rub. Tongue is midline and moved [id number] without any difficulty. No dysarthria is noted. Shoulder shrug is normal bilaterally. Motor: Gait is deferred. The strength is 5 over 5 throughout except left ankle strength is deferred because of his infection and surgery (wrapped). Normal tone and bulk. Patient has repeated spontanous jerks predominately upper, shoulder/chest and rarely lower but is reponsive during episode and following commands. Cerebellum: Normal finger to nose bilaterally. Sensation: Sensation is normal to touch throughout. Reflexes (right/left): 2+ throughout. Plantars are downgoing bilaterally. WORK-UP: CT of the head is reported as age-related atrophic and chronic small vessel ischemic change without acute intracranial process seen at this time. Preliminary EEG on 09/11/2020: It is an abnormal routine EEG. The background slowing is suggestive of mild encephalopathy likely due to toxic-metabolic encephalopathy. There are no focal slowing epileptiform discharges or seizure on the EEG. The tremor seen on the EEG does not correlate with seizure. AST is 40, ALT 30, ammonia level is less than 9 was considered within normal limits. TSH is 0.510 which is considered within normal limits HbA1c: 7.9 Calcium 8.1 (low). - Labs CBC & Chem 7: 09/13/20 06:24 09/13/20 06:24 Labs: Abnormal Lab Results - Last 24 Hours (Table) 09/12/20 09/12/20 09/12/20 Range/Units 07:05 11:52 16:59 Chloride 114 H (96-109) mmol/L Carbon Dioxide 20.2 L (21.6-31.8) mmol/L BUN 39.0 H (9.0-27.0) mg/dL Creatinine 6.1 H (0.6-1.5) mg/dL Est GFR (CKD-EPI)AfAm 11.3 L (60.0-200.0) Est GFR (CKD-EPI)NonAf 9.7 L (60.0-200.0) BUN/Creatinine Ratio 6.39 L (12.00-20.00) Ratio Glucose 143 H (70-110) mg/dL POC Glucose (mg/dL) 282 H 105 H (75-99) mg/dL Calcium 8.1 L (8.7-10.3) mg/dL Magnesium 2.5 H (1.5-2.4) mg/dL 09/13/20 Range/Units 06:51 Chloride (96-109) mmol/L Carbon Dioxide (21.6-31.8) mmol/L BUN (9.0-27.0) mg/dL Creatinine (0.6-1.5) mg/dL Est GFR (CKD-EPI)AfAm (60.0-200.0) Est GFR (CKD-EPI)NonAf (60.0-200.0) BUN/Creatinine Ratio (12.00-20.00) Ratio Glucose (70-110) mg/dL POC Glucose (mg/dL) 100 H (75-99) mg/dL Calcium (8.7-10.3) mg/dL Magnesium (1.5-2.4) mg/dL Microbiology - Last 24 Hours (Table) 09/06/20 12:19 Blood Culture - Final Blood No Growth after 144 hours 09/06/20 12:18 Blood Culture - Final Blood No Growth after 144 hours 09/07/20 16:19 Anaerobic Culture - Final Foot - Left Anaerobic Gm Negative Bacilli Anaerobic Gm Negative Bacilli#2 Assessment and Plan Assessment: * Tremors for the past one year but worsening in the last one month (since on [place]). Seems myoclonus due to medication/metabolic induced (Has worsening of acute kidney injury and was on high dose of Gabapentin). Unlikely seizure. * Acute kidney injury---worsening (On initial presentation it was normal and most recent Creatninge is 6.1). * Infected diabetic foot wounds status post left second toe amputation on 09/07/2020 * Elevated sugar and his DM remains uncontrolled (HbA1c: 7.9) * Diabetes mellitus * History of left foot surgery * Diabetic neuropathy * History of hypertension * Hyperlipidemia Plan: * Ordered MRI Brain to rule out any intracranial lesion. * Was on home medication of Gabapentin 600mg 1tab tid and was decreased to 100mg 1 tab tid by nephrology. I will stop Gabapentin since has worsening of kidney insuffiency and once improve then start the Gabapentin and slowly titrate up. * [place] was stopped. * Nephrology team is on board * We'll defer the rest of the medical management to primary team. * Upon discharge the patient needs to follow-up with a neurologist as outpatient within 1-2 weeks. The plan is discussed with the patient's nurse and nephrology team. Dr. Otto will take over neurology service starting tomorrow AM. Sulaiman Capellan M.D. Neuro-hospitalist Time with Patient: Less than 30
[2020-09-13 10:49] LABS: African American GFR (CKD) 10.9 (60.0-200.0); Anion Gap 5.3 mmol/L (4.00-12.00); BUN/Creat Ratio 6.03 Ratio (12.00-20.00); Calcium 8.4 mg/dL (8.7-10.3); Carbon Dioxide 19.7 mmol/L (21.6-31.8); Non-African American GFR(CKD) 9.4 (60.0-200.0); Potassium 5.4 mmol/L (3.5-5.5)
[2020-09-13 12:07] LABS: Glucose,Whole Blood 115 mg/dL (75-99)
--- NOTE | 2020-09-13 12:19 | P.PN ---
Subjective covering over the weekend This is a pleasant 18 years old male with past medical history of diabetes mellitus, hypertension, hyperlipidemia, obesity, sleep apnea on CPAP/BiPAP, depression/bipolar/anxiety, and PTSD. Was admitted for diabetic foot ulcers and developed acute kidney injury. Today he is awake and alert, is complaining of from tremor in his both hands. Pain is controlled. He is hemodynamically stable Labs showing leukocytosis of 14.3 K. Elevated ESR of 46 and C-reactive protein of 8.8. Creatinine is elevated at 6.1. Glucose is controlled. Patient currently is on Unasyn, normal sinus 75 mL/h, 09/13/2020 Patient is awake and alert, is complaining from exertional dyspnea but this is not new but Chronic for example if he do shoelaces or trying to reach his phone he got short of breath. 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 His WBCs 15 care compared to 14 K yesterday. He is currently on Unasyn and normal saline His wound culture is showing gram-negative bacilli 2 kinds, also today showed gram-positive cocci. Lisinopril and NSAIDs were discontinued also vancomycin and lithium were discontinued for his kidney injury. Diffusion Operator on the case Objective - Vital Signs Vital signs: Vital Signs Temp 97.7 F 09/13/20 08:00 Pulse 89 09/13/20 08:00 Resp 16 09/13/20 08:00 BP 154/83 09/13/20 08:00 Pulse Ox 98 09/13/20 08:00 Intake & Output 09/12/20 09/13/20 09/13/20 18:59 06:59 18:59 Output Total 1000 900 Balance -1000 -900 Output: Urine 1000 900 Other: Voiding Method Indwelling Catheter Indwelling Catheter Indwelling Catheter # Bowel Movements 1 - Exam -GENERAL: The patient is alert and oriented x3, not in any acute distress. Morbidly obese HEENT: Pupils are round and equally reacting to light. EOMI. No scleral icterus. No conjunctival pallor. Normocephalic, atraumatic. No pharyngeal erythema. No thyromegaly. CARDIOVASCULAR: S1 and S2 present. No murmurs, rubs, or gallops. PULMONARY: Chest is clear to auscultation, no wheezing or crackles. ABDOMEN: Soft, nontender, nondistended, normoactive bowel sounds. No palpable organomegaly. MUSCULOSKELETAL: No joint swelling or deformity. -EXTREMITIES: No cyanosis, clubbing, or pedal edema. Upper extremity tremor. Left foot wound is covered with a dressing NEUROLOGICAL: Gross neurological examination did not reveal any focal deficits. SKIN: No rashes. no petechiae. - Labs CBC & Chem 7: 09/13/20 06:24 09/13/20 06:24 Labs: Abnormal Lab Results - Last 24 Hours (Table) 09/12/20 09/12/20 09/13/20 Range/Units 07:05 16:59 06:24 WBC 15.43 H (4.50-10.00) X 10*3/uL RBC 4.21 L (4.40-5.60) X 10*6/uL Hgb 12.5 L (13.0-17.0) g/dL MCV 97.4 H (80.0-97.0) fL MCHC 30.5 L (32.0-37.0) g/dL Immature Gran # 0.52 H (0.00-0.04) X 10*3/uL Neutrophils # 9.75 H (1.80-7.70) X 10*3/uL Monocytes # 1.44 H (0.20-1.00) X 10*3/uL Eosinophils # 0.70 H (0.04-0.35) X 10*3/uL Chloride 114 H (96-109) mmol/L Carbon Dioxide 20.2 L (21.6-31.8) mmol/L BUN 39.0 H (9.0-27.0) mg/dL Creatinine 6.1 H (0.6-1.5) mg/dL Est GFR (CKD-EPI)AfAm 11.3 L (60.0-200.0) Est GFR (CKD-EPI)NonAf 9.7 L (60.0-200.0) BUN/Creatinine Ratio 6.39 L (12.00-20.00) Ratio Glucose 143 H (70-110) mg/dL POC Glucose (mg/dL) 105 H (75-99) mg/dL Calcium 8.1 L (8.7-10.3) mg/dL Magnesium 2.5 H (1.5-2.4) mg/dL 09/13/20 09/13/20 09/13/20 Range/Units 06:24 06:51 12:04 WBC (4.50-10.00) X 10*3/uL RBC (4.40-5.60) X 10*6/uL Hgb (13.0-17.0) g/dL MCV (80.0-97.0) fL MCHC (32.0-37.0) g/dL Immature Gran # (0.00-0.04) X 10*3/uL Neutrophils # (1.80-7.70) X 10*3/uL Monocytes # (0.20-1.00) X 10*3/uL Eosinophils # (0.04-0.35) X 10*3/uL Chloride 117 H (96-109) mmol/L Carbon Dioxide 19.7 L (21.6-31.8) mmol/L BUN 38.0 H (9.0-27.0) mg/dL Creatinine 6.3 H (0.6-1.5) mg/dL Est GFR (CKD-EPI)AfAm 10.9 L (60.0-200.0) Est GFR (CKD-EPI)NonAf 9.4 L (60.0-200.0) BUN/Creatinine Ratio 6.03 L (12.00-20.00) Ratio Glucose (70-110) mg/dL POC Glucose (mg/dL) 100 H 115 H (75-99) mg/dL Calcium 8.4 L (8.7-10.3) mg/dL Magnesium (1.5-2.4) mg/dL Microbiology - Last 24 Hours (Table) 09/07/20 16:19 Anaerobic Culture - Final Foot - Left Anaerobic Gm Negative Bacilli Anaerobic Gm Negative Bacilli#2 Anaerobic Gram Positive Cocci 09/06/20 12:19 Blood Culture - Final Blood No Growth after 144 hours 09/06/20 12:18 Blood Culture - Final Blood No Growth after 144 hours Assessment and Plan Assessment: Diabetic left ulcer with osteomyelitis Acute kidney injury Urinary retention Chronic tremor for 1 year with recent worsening over one month, suspected due to lithium and gabapentin may be contributing History of depression/bipolar/anxiety, and PTSD. No connective tissue Hypertension, uncontrolled Hyperlipidemia Diabetes mellitus Sleep apnea Morbid obesity with BMI of 50.2 Plan: This is a pleasant 49 this old male who presents with diabetic foot ulcer with possible osteomyelitis ,and tremor. Continue With Unasyn, continue with gentle hydration. Infectious disease team on the case Hold LISINOPRIL and NSAIDs and monitor kidney function and urine output. Diffusion Operator on the case Continue Jarquin catheter Recommend pulmonary evaluation which can be done as an outpatient Continue with insulin and monitor her glucose.Labs and medication were reviewed.. Continue same treatment. Continue with symptomatic treatment. Resume home medication. Monitor lytes and vitals. DVT and GI prophylaxis. Further recommendationsas per clinical course of the patient DVT prophylaxis: Subcutaneous heparin GI Prophylaxis: Pepcid PT/OT: Recommended home care which is ordered Prognosis is guarded
[2020-09-13] MEDS: amLODIPine 5 MG TAB PO SCH (13:25)
[2020-09-13 16:54] LABS: Glucose,Whole Blood 114 mg/dL (75-99)
[2020-09-13 20:45] LABS: Glucose,Whole Blood 108 mg/dL (75-99)
--- NOTE | 2020-09-13 21:26 | PN ---
PROGRESS NOTE DATE OF SERVICE: 09/13/2020 REASON FOR FOLLOWUP: Left 2nd toe diabetic foot infection. INTERVAL HISTORY: Patient is afebrile. The patient is breathing comfortably the patient denies having any chest pain, shortness of breath or cough. No abdominal pain. ( ) tenderness in the left foot. PHYSICAL EXAMINATION: Blood pressure 152/82 with a pulse of 79, temperature 98.5. He is 95% on room air. GENERAL DESCRIPTION: Is a middle-aged male lying in bed in no distress. RESPIRATORY SYSTEM: Unlabored breathing, clear to auscultation anteriorly. HEART: S1, S2. Regular rate and rhythm. ABDOMEN: Soft. EXTREMITIES: Left foot is currently dressed up. No drainage on the dressing. LABS: Hemoglobin 12.5, white count 15.4, BUN of 38, creatinine 0.3. Local culture, anaerobes. DIAGNOSTIC IMPRESSION AND PLAN: Status post patient with left diabetic foot infection status post amputation. The patient had developed ( ) toxicity. Currently covered with Unasyn. Local care with Aquacel Silver dressing. Family at the bedside. Questions answered. MMODL / IJN: [id number] /
[2020-09-13] MEDS: traZODone HCL 100 MG TAB PO SCH (21:47)
[2020-09-13] MEDS: ZIPRASIDONE 40 MG CAP PO SCH (21:47)
[2020-09-14] MEDS: SODIUM CHLORIDE 0.9% 1,000 ML IV SCH ×2 (05:48→11:10)
[2020-09-14] MEDS: Semaglutide [Rybelsus] 3 MG Tablet PO SCH (07:25)
[2020-09-14] MEDS: INSULIN DETEMIR (LEVEMIR) 100 UNIT/ML SYR SQ SCH ×2 (07:26→21:39)
[2020-09-14 07:29] LABS: Glucose,Whole Blood 98 mg/dL (75-99)
[2020-09-14] MEDS: AMPICILLIN-SULBACTAM 3 GM in SODIUM CHLORIDE 0.9% 100 ML IVPB SCH (07:40)
[2020-09-14] MEDS: INSULIN ASPART (NovoLOG) 100 UNIT/ML VIAL SQ SCH ×7 (07:40→21:14)
[2020-09-14] MEDS: hydrOXYzine pamoate 25 MG CAP PO SCH ×2 (07:41→21:38)
[2020-09-14] MEDS: busPIRone HCl 10 MG TAB PO SCH ×2 (07:41→21:39)
[2020-09-14] MEDS: amLODIPine 5 MG TAB PO SCH (07:41)
[2020-09-14] MEDS: PANTOPRAZOLE 40 MG TABLET PO SCH (07:41)
[2020-09-14] MEDS: LACTOBACILLUS ACIDOPH & BULGAR 1 EACH PACKET PO SCH ×3 (07:41→21:40)
[2020-09-14] MEDS: TAMSULOSIN 0.4 MG CAP.ER.24H PO SCH (07:42)
[2020-09-14] MEDS: HEPARIN SODIUM,PORCINE/PF 5,000 UNIT/0.5 ML SYRINGE SQ SCH ×2 (07:42→21:39)
[2020-09-14] MEDS: FAMOTIDINE 20 MG TAB PO SCH (07:42)
[2020-09-14] MEDS: DULoxetine HCL 60 MG CAPSULE.DR PO SCH ×2 (07:42→21:39)
[2020-09-14] MEDS: HYDROcodone/APAP 10-325MG 1 EACH TAB PO PRN ×2 (08:12→21:20)
[2020-09-14] MEDS ORDERED: LORazepam 2 MG/ML INJ IV STA (08:48)
[2020-09-14] MEDS ORDERED: LORazepam 2 MG/ML INJ ONE (08:52)
[2020-09-14 10:58] LABS: African American GFR (CKD) 10 (>60 ml/min/1.73 sqM); Anion Gap 6 mmol/L; Blood Urea Nitrogen 39 mg/dL (9-20); Calcium 8.8 mg/dL (8.4-10.2); Carbon Dioxide 22 mmol/L (22-30); Chloride 112 mmol/L (98-107); Glucose 120 mg/dL (74-99); Non-African American GFR(CKD) 9 (>60 ml/min/1.73 sqM); Potassium 5.6 mmol/L (3.5-5.1); Sodium 140 mmol/L (137-145)
[2020-09-14 11:39] LABS: Glucose,Whole Blood 140 mg/dL (75-99)
--- NOTE | 2020-09-14 12:12 | PN ---
PROGRESS NOTE Patient is seen for followup for acute kidney injury mostly secondary to vancomycin toxicity and NSAIDs, currently nonoliguric with indwelling Jarquin catheter. Serum creatinine has been staying at about 6.1-6.3. The patient currently denies any nausea or vomiting. I do not have labs available from today. He is awake, not in any acute distress. PHYSICAL EXAMINATION: Blood pressure 163/97, heart rate 94 per minute, he is afebrile. Examination of the heart S1, S2. Examination of lungs, decreased breath sounds at the bases. Abdomen is soft, nontender. Examination of lower extremities shows edema 2+ left leg, 1+ right lower extremity. 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 LABS: Pending from today. Previous creatinine 6.3 from 09/13/2020. ASSESSMENT: 1. Acute kidney injury secondary to vancomycin toxicity, ATN and from NSAIDs. Currently nonoliguric with indwelling Jarquin catheter. Being monitored daily for need for renal replacement therapy. Labs are pending from today. Patient is mildly volume overloaded. If his labs look about the same, we can continue to hold off on dialysis today. 2. Left foot osteomyelitis, status post amputation of left 2nd toe. 3. Metabolic acidosis secondary to renal failure. Currently improved. 4. Urine retention. Currently with indwelling Jarquin catheter placement. 5. Type 2 diabetes. PLAN: Check labs today and then again in a.m. Decrease IV fluids. Continue to avoid nephrotoxic agents. Avoid hypotension. The patient may need mild diuresis as he is volume overloaded. However, I will follow up on the labs from today and we will continue to monitor for need for renal replacement therapy on a daily basis. MMODL / IJN: [id number] /
--- NOTE | 2020-09-14 16:16 | P.PN ---
Subjective Progress Note Date: 09/14/20 Patient was seen for a follow-up. Patient initially seen by Dr. Sulaiman Capellan. Please refer to his note for details. Patient has presented with tremors. Patient has diabetes on gabapentin. Patient had lithium started about a month ago. Patient has also has acute renal failure with creatinine between 5-6. Patient recently had undergone surgery, in which one of the toe was amputated. He was on antibiotics. Patient's father was present today. He states that patient does have mild even before surgery, but became worse in the last few days. Patient's father states that he is doing better. First time he is able to hold his cellular phone. He did drop phone 3 times today. He still cannot dial because of the tremors. Yesterday he was not able to even hold the cell phone. WORK-UP: CT of the head is reported as age-related atrophic and chronic small vessel ischemic change without acute intracranial process seen at this time. EEG on 09/11/2020: It is an abnormal routine EEG. The background slowing is suggestive of mild encephalopathy likely due to toxic-metabolic encephalopathy. There are no focal slowing epileptiform discharges or seizure on the EEG. The tremor seen on the EEG does not correlate with seizure. AST is 40, ALT 30, ammonia level < 9. TSH is 0.510 normal Objective - Vital Signs Vital signs: Vital Signs Temp 97.9 F 09/14/20 13:21 Pulse 85 09/14/20 13:21 Resp 18 09/14/20 13:21 BP 169/98 09/14/20 13:21 Pulse Ox 97 09/14/20 13:21 Intake & Output 09/13/20 09/14/20 09/14/20 18:59 06:59 18:59 Intake Total 2080 Output Total 1100 1202 Balance -1100 878 Intake: Intake, IV Titration 1000 Amount Ampicillin-Sulbactam 3 gm 100 In Sodium Chloride 0.9% 100 ml @ 200 mls/hr IVPB Q12HR [facility] Rx#:[id number] Sodium Chloride 0.9% 1, 900 000 ml @ 75 mls/hr IV . [id number] [facility] Rx#:[id number] Oral 1080 Output: Urine 1100 1200 Stool 2 Other: Voiding Method Indwelling Catheter Indwelling Catheter - Exam Patient is alert and awake, in no distress. Speech and language functions are normal. Patient has mild to moderate tremors of outstretched hands, and develops myoclonic jerks with pronated hands. Patient has moderate tremor for [id number] testing bilaterally. - Labs CBC & Chem 7: 09/13/20 06:24 09/14/20 10:10 Labs: Abnormal Lab Results - Last 24 Hours (Table) 09/13/20 09/13/20 09/14/20 Range/Units 16:50 20:42 10:10 Potassium 5.6 H (3.5-5.1) mmol/L Chloride 112 H (98-107) mmol/L BUN 39 H (9-20) mg/dL Creatinine 6.52 H (0.66-1.25) mg/dL Glucose 120 H (74-99) mg/dL POC Glucose (mg/dL) 114 H 108 H (75-99) mg/dL 09/14/20 Range/Units 11:34 Potassium (3.5-5.1) mmol/L Chloride (98-107) mmol/L BUN (9-20) mg/dL Creatinine (0.66-1.25) mg/dL Glucose (74-99) mg/dL POC Glucose (mg/dL) 140 H (75-99) mg/dL Microbiology - Last 24 Hours (Table) 09/07/20 16:19 Anaerobic Culture - Final Foot - Left Anaerobic Gm Negative Bacilli Anaerobic Gm Negative Bacilli#2 Anaerobic Gram Positive Cocci Assessment and Plan Assessment: * Tremor most likely metabolic. Patient has acute renal failure, the likely cause. Patient was also on gabapentin 600 mg 3 times a day, which likely in the setting of acute renal failure produced myoclonic jerks. * Acute kidney injury, worsening * Infected diabetic foot wounds, status post left second toe amputation on 09/07/2020 * Elevated sugar and his DM remains uncontrolled * Diabetes mellitus * History of left foot surgery * Diabetic neuropathy * History of hypertension * Hyperlipidemia Plan: * Patient's BUN is 39, creatinine 6.52. * Stay off gabapentin. We will check gabapentin level. We'll resume gabapentin 100 mg twice a day after the level returns back to normal, to prevent withdrawal symptoms/seizures. * Stay off lithium. * No other neurological workup indicated.
[2020-09-14 16:36] LABS: Glucose,Whole Blood 128 mg/dL (75-99)
--- NOTE | 2020-09-14 18:00 | P.PN ---
Subjective Progress Note Date: 09/14/20 This is a 49-year-old gentleman admitted with a left diabetic plantar foot wound, had been following with a automatic washer mechanic, worsened. Reports history of prior surgery to the affected foot with resulting plate with 16 screws. Evaluated by vascular surgery, bone scan in progress. Scheduled for I&D and potentially amputation of first, possibly a second toes. Wound culture pending. Maintained on IV antibiotics of clindamycin and vancomycin. Renal function stable. Afebrile, WBC trending down, 16.4. Blood sugars better controlled. Denies chest pain, palpitations or shortness of breath. 09/08/2020 bone scan reported suspicious for osteomyelitis involving the second digit of the left lower, with likely underlying cellulitis. status post left second toe amputation, postop day #1, tolerated well. Pain controlled. Earlier this morning patient had gotten up to bathroom, with significant bleeding re ported from site. Pressure dressing applied, dressing and currently clean dry and intact, labs pending. Maintained on IV antibiotics daptomycin and Zosyn, and IV fluid hydration. Afebrile. 09/09/2020 maintained on IV antibiotics as per ID. Reported diarrhea, suspect antibiotic related. Lactinex added to med regimen. Hemoglobin stable. Reports throbbing of affected lower extremity. Afebrile, wound cultures pending. Creatinine jumped to 2.62 yesterday; patient had been on vancomycin initially. Maintained on IV fluid hydration. Repeat labs pending. Blood sugars elevated, ranging from 180s to 250s. 09/10/2020 maintained on IV antibiotics, creatinine continues to jump to 5.22, nephrology consulted.potassium 5.8 Developed increasing tremors, lithium level I.2, ammonia level less than 9. Neurology consulted. Noncompliant with consistent carb diet; staff reports family continues to bring him in a nondiabetic food/drink, package of combos sitting on his bedside table. Blood s ugars ranging 180s to 200. Afebrile. Pain had been controlled until he ambulated with PT. 09/11/2020 complains of urinary retention, bladder scanned for greater than 400, inability to place urinary catheter-3 attempts, renal function continues to worsen with creatinine up to 5.96. Afebrile, WBC 14.33. Blood sugars better controlled. Levemir increased yesterday, blood sugars better controlled. Hemoglobin 12.1, platelets 271. 09/14/2020 sitting up in chair. Denies chest pain, palpitations. Reports exertional shortness of breath. Tremors appear mildly improved. Complains of phantom pain. Reports he is unable to take Seroquel as it causes him restless leg syndrome. Scheduled for brain MRI this morning. Maintained on Unasyn, afebrile. Denies nausea or vomiting. Blood sugars controlled. Labs pending. Objective - Vital Signs Vital signs: Vital Signs Temp 97.9 F 09/14/20 13:21 Pulse 85 09/14/20 13:21 Resp 18 09/14/20 13:21 BP 169/98 09/14/20 13:21 Pulse Ox 97 09/14/20 13:21 Intake & Output 09/13/20 09/14/20 09/14/20 18:59 06:59 18:59 Intake Total 2080 Output Total 1100 1202 1300 Balance -1100 878 -1300 Intake: Intake, IV Titration 1000 Amount Ampicillin-Sulbactam 3 gm 100 In Sodium Chloride 0.9% 100 ml @ 200 mls/hr IVPB Q12HR [facility] Rx#:[id number] Sodium Chloride 0.9% 1, 900 000 ml @ 50 mls/hr IV . Q20H [facility] Rx#:[id number] Oral 1080 Output: Urine 1100 1200 1300 Stool 2 Other: Voiding Method Indwelling Catheter Indwelling Catheter Indwelling Catheter - Exam PHYSICAL EXAM: VITAL SIGNS: As above GENERAL: Obese, sitting up in chair, no acute distress. HEENT: Conjunctivae normal. eyes normal. NECK: No JVD. No thyroid enlargement. No LNs CARDIOVASCULAR: S1, S2 regular. No murmur. RESPIRATION: Breath sounds diminished in the bases. No rhonchi or crackles. No bronchial breathing. ABDOMEN: Soft, nondistended, nontender . No guarding. no masses palpable.Bowel sounds heard. LEGS: Positive bilateral lower extremity edema, left foot dressing clean dry and intact, pink anterior left lower extremity, palpable diminished DP pulse, wearing ortho shoe. PSYCHIATRY: Alert and oriented X3, mood and affect normal. NERVOUS SYSTEM: Cranial N 2-12 grossly normal. Moves all 4 limbs. No focal deficits.Strength and sensation grossly intact. Spontaneous jerking/twitching/myoclonic jerks of upper torso/upper extremities Skin: Warm and dry, no rash. Microbiology 09/07/20 16:19 Foot - Left Anaerobic Culture - Final Anaerobic Gm Negative Bacilli Anaerobic Gm Negative Bacilli#2 Anaerobic Gram Positive Cocci 09/06/20 12:19 Blood Blood Culture - Final No Growth after 144 hours 09/06/20 12:18 Blood Blood Culture - Final No Growth after 144 hours 09/07/20 16:19 Foot - Left Gram Stain - Final 09/07/20 16:19 Foot - Left Wound Culture - Final 09/06/20 12:22 Foot - Left Gram Stain - Final 09/06/20 12:22 Foot - Left Wound Culture - Final - Labs CBC & Chem 7: 09/13/20 06:24 09/14/20 10:10 Labs: Abnormal Lab Results - Last 24 Hours (Table) 09/13/20 09/14/20 09/14/20 Range/Units 20:42 10:10 11:34 Potassium 5.6 H (3.5-5.1) mmol/L Chloride 112 H (98-107) mmol/L BUN 39 H (9-20) mg/dL Creatinine 6.52 H (0.66-1.25) mg/dL Glucose 120 H (74-99) mg/dL POC Glucose (mg/dL) 108 H 140 H (75-99) mg/dL 09/14/20 Range/Units 16:30 Potassium (3.5-5.1) mmol/L Chloride (98-107) mmol/L BUN (9-20) mg/dL Creatinine (0.66-1.25) mg/dL Glucose (74-99) mg/dL POC Glucose (mg/dL) 128 H (75-99) mg/dL Assessment and Plan Assessment: Possible sepsis, present on admission related to Acute Diabetic wound of left foot, failed outpatient treatment Osteomyelitis of left foot, second digit status post bone scan, status post amputation of left second toe Acute renal failure, related to ATN secondary to vancomycin, nsaids, urinary retention, worsening Metabolic acidosis secondary to the above Urinary retention, status post Jarquin catheter placement Tremors, lithium level high end of therapeutic, possible but doubt seizures, possibly medication related, suspect metablic as per neurology. History of prior left foot surgery with reported plate and screws Diabetes mellitus type 2, hyperglycemic, hemoglobin A1c 7.9. Hypertension Hyperlipidemia Obstructive sleep apnea Peripheral neuropathy PTSD, bipolar, depression, anxiety History of cocaine, marijuana, opiates, prescription drug abuse Morbid obesity, BMI 50.2 Plan: Continue on current medication regime ,monitoring and symptomatic treatment. Labs pending. Brain MRI pending.Gentle IV fluid hydration. Avoid nephrotoxins. Seroquel discontinued, Ativan ordered. IV antibiotics per ID. Close monitoring of Accu-Cheks. Close monitoring of renal function with repeat labs ordered for a.m. follow closely with multiple consults. The impression and plan of care has been dictated as directed. : I performed a history and examination of this patient, discussed the same with the dictator. I agree with the dictator's note ,documented as a scribe. Any additional findings or plans will be noted.
--- NOTE | 2020-09-14 20:22 | PN ---
PROGRESS NOTE DATE OF SERVICE: 09/14/2020 REASON FOR FOLLOWUP: Left second toe diabetic foot infection. INTERVAL HISTORY: The patient is afebrile. The patient is breathing comfortably. Did mention he is not feeling that good. No chest pain, shortness of breath, abdominal pain, or any worsening pain to the left foot. PHYSICAL EXAMINATION: Blood pressure 159/90 with a pulse of 85, temperature is 97.9. He is 97% on room air. General description is a middle-aged male lying in bed in no distress. Respiratory system: Unlabored breathing, clear to auscultation anteriorly. Heart S1, S2. Regular rate and rhythm. Abdomen soft, no tenderness. Left foot is currently dressed up. No obvious drainage on the dressing. LABS: Creatinine is up to 6.52. Culture with anaerobes. DIAGNOSTIC IMPRESSION AND PLAN: Patient with left second toe diabetic foot infection status post amputation of his left second toe. Culture has been mostly anaerobes. Patient is covered with Unasyn. Waiting for the kidney function to improve. Continue supportive care. MMODL / IJN: [id number] /
[2020-09-14 20:26] LABS: Glucose,Whole Blood 135 mg/dL (75-99)
[2020-09-14] MEDS: ZIPRASIDONE 40 MG CAP PO SCH (21:40)
[2020-09-14] MEDS: traZODone HCL 100 MG TAB PO SCH (21:40)
[2020-09-15 06:55] LABS: Glucose,Whole Blood 140 mg/dL (75-99)
[2020-09-15] MEDS: SODIUM CHLORIDE 0.9% 1,000 ML IV SCH (07:19)
[2020-09-15] MEDS: Semaglutide [Rybelsus] 3 MG Tablet PO SCH (07:19)
[2020-09-15] MEDS: LACTOBACILLUS ACIDOPH & BULGAR 1 EACH PACKET PO SCH ×3 (07:25→21:25)
[2020-09-15] MEDS: INSULIN DETEMIR (LEVEMIR) 100 UNIT/ML SYR SQ SCH ×2 (07:25→21:25)
[2020-09-15] MEDS: DULoxetine HCL 60 MG CAPSULE.DR PO SCH ×2 (07:25→21:24)
[2020-09-15] MEDS: busPIRone HCl 10 MG TAB PO SCH ×2 (07:25→21:25)
[2020-09-15] MEDS: hydrOXYzine pamoate 25 MG CAP PO SCH ×2 (07:25→21:24)
[2020-09-15] MEDS: TAMSULOSIN 0.4 MG CAP.ER.24H PO SCH (07:25)
[2020-09-15] MEDS: HEPARIN SODIUM,PORCINE/PF 5,000 UNIT/0.5 ML SYRINGE SQ SCH ×2 (07:26→21:24)
[2020-09-15] MEDS: amLODIPine 5 MG TAB PO SCH (07:26)
[2020-09-15] MEDS: INSULIN ASPART (NovoLOG) 100 UNIT/ML VIAL SQ SCH ×7 (07:26→21:25)
[2020-09-15] MEDS: FAMOTIDINE 20 MG TAB PO SCH (07:26)
[2020-09-15] MEDS: PANTOPRAZOLE 40 MG TABLET PO SCH (07:26)
[2020-09-15] MEDS: AMPICILLIN-SULBACTAM 3 GM in SODIUM CHLORIDE 0.9% 100 ML IVPB SCH (07:27)
[2020-09-15] MEDS: HYDROcodone/APAP 10-325MG 1 EACH TAB PO PRN ×2 (08:51→19:56)
[2020-09-15 11:20] LABS: Glucose,Whole Blood 165 mg/dL (75-99)
[2020-09-15 11:24] LABS: African American GFR (CKD) 11 (>60 ml/min/1.73 sqM); Anion Gap 9 mmol/L; Blood Urea Nitrogen 41 mg/dL (9-20); Carbon Dioxide 22 mmol/L (22-30); Chloride 111 mmol/L (98-107); Glucose 166 mg/dL (74-99); Non-African American GFR(CKD) 9 (>60 ml/min/1.73 sqM); Potassium 5.9 mmol/L (3.5-5.1); Sodium 142 mmol/L (137-145)
--- NOTE | 2020-09-15 12:06 | P.PN ---
Subjective Progress Note Date: 09/15/20 09/15/2020: Patient is sitting on side of the bed. Appears to be in mild respiratory distress. Offers no new complaints. Patient states he was seen by instructional materials director and there were considering starting dialysis from tomorrow. 09/14/2020: Patient was seen for a follow-up. Patient initially seen by Dr. Rainer Capellan. Please refer to his note for details. Patient has presented with tremors. Patient has diabetes on gabapentin. Patient had lithium started about a month ago. Patient has also has acute renal failure with creatinine between 5-6. Patient recently had undergone surgery, in which one of the toe was amputated. He was on antibiotics. Patient's father was present today. He states that patient does have mild even before surgery, but became worse in the last few days. Patient's father states that he is doing better. First time he is able to hold his cellular phone. He did drop phone 3 times today. He still cannot dial because of the tremors. Yesterday he was not able to even hold the cell phone. WORK-UP: CT of the head is reported as age-related atrophic and chronic small vessel ischemic change without acute intracranial process seen at this time. EEG on 09/11/2020: It is an abnormal routine EEG. The background slowing is suggestive of mild encephalopathy likely due to toxic-metabolic encephalopathy. There are no focal slowing epileptiform discharges or seizure on the EEG. The tremor seen on the EEG does not correlate with seizure. AST is 40, ALT 30, ammonia level < 9. TSH is 0.510 normal Objective - Vital Signs Vital signs: Vital Signs Temp 98.4 F 09/15/20 07:23 Pulse 81 09/15/20 07:23 Resp 20 09/15/20 07:23 BP 162/71 09/15/20 07:23 Pulse Ox 94 L 09/15/20 07:23 Intake & Output 09/14/20 09/15/20 09/15/20 18:59 06:59 18:59 Output Total 2300 1550 Balance -2300 -1550 Output: Urine 2300 1550 Other: Voiding Method Indwelling Catheter Indwelling Catheter - Exam Patient is alert and awake, in mild distress. Speech and language functions are normal. Patient has mild to moderate tremors of outstretched hands, and develops myoclonic jerks with pronated hands. Patient has moderate tremor for [id number] testing bilaterally. The tremulousness appears slightly worse as compared to yesterday. - Labs CBC & Chem 7: 09/13/20 06:24 09/15/20 10:39 Labs: Abnormal Lab Results - Last 24 Hours (Table) 09/14/20 09/14/20 09/15/20 Range/Units 16:30 20:20 06:43 Potassium (3.5-5.1) mmol/L Chloride (98-107) mmol/L BUN (9-20) mg/dL Creatinine (0.66-1.25) mg/dL Glucose (74-99) mg/dL POC Glucose (mg/dL) 128 H 135 H 140 H (75-99) mg/dL 09/15/20 09/15/20 Range/Units 10:39 11:17 Potassium 5.9 H (3.5-5.1) mmol/L Chloride 111 H (98-107) mmol/L BUN 41 H (9-20) mg/dL Creatinine 6.30 H (0.66-1.25) mg/dL Glucose 166 H (74-99) mg/dL POC Glucose (mg/dL) 165 H (75-99) mg/dL Assessment and Plan Assessment: * Tremor most likely metabolic. Patient has acute renal failure, the likely cause. Patient was also on gabapentin 600 mg 3 times a day, which likely in the setting of acute renal failure produced myoclonic jerks. * Acute kidney injury, worsening * Infected diabetic foot wounds, status post left second toe amputation on 09/07/2020 * Elevated sugar and his DM remains uncontrolled * Diabetes mellitus * History of left foot surgery * Diabetic neuropathy * History of hypertension * Hyperlipidemia Plan: * Patient's BUN is 41 (39 yesterday), creatinine 6.3 (6.52 yesterday). Appears possible plan of dialysis tomorrow. * Stay off gabapentin. Await gabapentin level. We'll resume gabapentin 100 mg twice a day after the level returns back to normal, to prevent withdrawal symptoms/seizures. * Stay off lithium. * No other neurological workup indicated.
[2020-09-15] MEDS ORDERED: LIDOCAINE 1% INJ 10MG/ML (20 ML MDV) ONE ×2 (13:56→14:30)
[2020-09-15] MEDS ORDERED: HEPARIN SODIUM 1,000 UN/ML (10ML VL) ONE (13:57)
[2020-09-15] MEDS ORDERED: LIDOCAINE 1% INJ 10MG/ML (20 ML MDV) SQ ONE ×3 (14:23→14:31)
--- NOTE | 2020-09-15 14:23 | PN ---
PROGRESS NOTE Patient is seen for followup for acute kidney injury. The patient is complaining of nausea, decreased oral intake. He states that his mentation does not seem to be normal. Serum creatinine staying at about 6.3-6.5 mg/dL, although patient has good urine output. His potassium is elevated today at 5.9. I have discussed with him that we should initiate renal replacement therapy given his symptoms as well as the presence of hyperkalemia now. The patient is agreeable. We will proceed with vascular surgery consult and we will plan for his first dialysis treatment tomorrow. PHYSICAL EXAMINATION: On examination today, blood pressure 162/71, heart rate 81 per minute, he is afebrile. Examination of the heart S1, S2. Examination of the lungs, bilateral breath sounds are heard. The patient is morbidly obese. Abdomen is soft. Examination of lower extremities shows chronic edema. Left foot is currently wrapped. LABS: Show sodium 142, potassium 5.9, chloride 111, CO2 is 22, BUN 41, creatinine 6.3. ASSESSMENT: 1. Acute kidney injury, ATN, and from vancomycin toxicity, currently nonoliguric. However, patient is having subtle symptoms of uremia. He is hyperkalemic and is volume overloaded. We will proceed with renal replacement therapy with his first treatment planned for tomorrow. 2. Hyperkalemia associated with acute kidney injury. Treat with insulin and D50 today and expect improvement with hemodialysis in a.m. tomorrow. 3. Hypertension. 4. Volume overload, continue off of IV fluids. 5. Left second toe osteomyelitis status post amputation. 6. Urine retention currently with indwelling Jarquin catheter. 7. Metabolic acidosis secondary to renal failure, now improved. PLAN: Proceed with vascular surgery consult. We will plan for dialysis tomorrow. Discontinue IV fluids. Treat hyperkalemia with insulin and D50. The patient is agreeable and he seems to comprehend well. MMODL / IJN: [id number] /
[2020-09-15] MEDS ORDERED: MIDAZOLAM 2 MG/2 ML VIAL IV ONE (14:26)
[2020-09-15] MEDS ORDERED: SODIUM CHLORIDE 0.9% 250 ML IV ONE (14:27)
[2020-09-15] MEDS ORDERED: HEPARIN SODIUM 1,000 UN/ML (10ML VL) IV ONE (14:43)
--- NOTE | 2020-09-15 15:04 | P.GSCN ---
History of Present Illness History of present illness: 49-year-old white male history of acute chronic failure. Patient has current 6.3 potassium 5.9 was consulted for placement dialysis catheter. Patient has history of obesity acute chronic failure Neck examination neck is supple no bruit appreciated Chest is clear first and second sound normal good and both lungs Abdomen soft nontender femorals are 1+ Plan is placement of dialysis catheter risk and complication discussed Past Medical History Past Medical History: Diabetes Mellitus, Hyperlipidemia, Hypertension, Sleep Apnea/CPAP/BIPAP Additional Past Medical History / Comment(s): neuropathy,arthritis gout, depression. Crushing injury to left foot metacarpals repaired with plate and 16 screws in past broke lt foot(sx ), myron carpal tunnel. History of Any Multi-Drug Resistant Organisms: None Reported Past Surgical History: Orthopedic Surgery Additional Past Surgical History / Comment(s): lasik eye sx ,left foot surgery. to reprair break-"has 2 plates and 16 screws" left groin boil cellulitis with excision and debriedment and NPWT performed by Dr. Estrella. Past Anesthesia/Blood Transfusion Reactions: No Reported Reaction Past Psychological History: Anxiety, Bipolar, Depression, PTSD Smoking Status: Never smoker Past Alcohol Use History: None Reported Additional Past Alcohol Use History / Comment(s): "haven't drank since New '2018". Past Drug Use History: Cocaine, Marijuana, Opiates, Prescription Drug Abuse Additional Drug Use History / Comment(s): crack cocaine. stated quit all drug use 2016 used crack cocaine today (day of admission 01-22-2019 - Past Family History Mother Family Medical History: Cancer, Diabetes Mellitus Father Family Medical History: Myocardial Infarction ([place]) Additional Family Medical History / Comment(s): stroke Medications and Allergies Home Medications Medication Instructions Recorded Confirmed Type allopurinoL [Zyloprim] 300 mg PO DAILY tab 01/23/18 09/06/20 Rx lisinopriL [Zestril] 10 mg PO DAILY #30 tab 10/21/19 09/06/20 Rx Atorvastatin Calcium [Lipitor] 20 mg PO HS 01/27/20 09/06/20 History metFORMIN HCL [Glucophage] 1,000 mg PO BID 01/27/20 09/06/20 History Famotidine [Pepcid] 20 mg PO BID 06/25/20 09/06/20 History Potassium Chloride ER [K-Dur 10] 10 meq PO DAILY 06/25/20 09/06/20 History Semaglutide [Rybelsus] 3 mg PO DAILY@0700 06/25/20 09/06/20 History DULoxetine HCL [Cymbalta] 60 mg PO BID 30 Days capsule. 07/06/20 09/06/20 Rx INSULIN ASPART (NovoLOG) [NovoLOG 40 unit SQ AC-TID vial 07/06/20 09/06/20 Rx (formulary)] Insulin Detemir (Levemir) [Levemir] 80 unit SQ BID@0700,2100 syr 07/06/20 09/06/20 Rx [place] Carbonate 450 mg PO BID 30 Days cap 07/06/20 09/06/20 Rx traZODone HCL [Desyrel] 200 mg PO HS 30 Days tab 07/06/20 09/06/20 Rx Gabapentin 600 mg PO TID 09/06/20 09/06/20 History HYDROcodone/APAP 5-325MG [[place] 1 tab PO QID PRN 09/06/20 09/06/20 History 5-325] Indomethacin [Indocin] 25 mg PO TID 09/06/20 09/06/20 History Meloxicam [Mobic] 15 mg PO DAILY 09/06/20 09/06/20 History Naloxone HCl [Narcan] 4 mg NASAL ONCE PRN 09/06/20 09/06/20 History Pantoprazole Sodium [Protonix] 40 mg PO DAILY 09/06/20 09/06/20 History Ziprasidone [Geodon] 40 mg PO HS 09/06/20 09/06/20 History busPIRone HCL [Buspar] 30 mg PO BID 09/06/20 09/06/20 History hydrOXYzine pamoate [hydrOXYzine 25 mg PO BID 09/06/20 09/06/20 History PAMOATE] Allergies Allergy/AdvReac Type Severity Reaction Status Date / Time ibuprofen [From Motrin] Allergy Rash/Hives Verified 09/06/20 12:37 Surgical - Exam Vital Signs Temp Pulse Resp BP Pulse Ox 98.6 F 90 18 108/83 96 09/06/20 12:00 09/06/20 12:00 09/06/20 12:00 09/06/20 12:00 09/06/20 12:00 Results - Labs 09/13/20 06:24 09/15/20 10:39 Abnormal Lab Results - Last 24 Hours (Table) 09/14/20 09/14/20 09/15/20 Range/Units 16:30 20:20 06:43 Potassium (3.5-5.1) mmol/L Chloride (98-107) mmol/L BUN (9-20) mg/dL Creatinine (0.66-1.25) mg/dL Glucose (74-99) mg/dL POC Glucose (mg/dL) 128 H 135 H 140 H (75-99) mg/dL 09/15/20 09/15/20 Range/Units 10:39 11:17 Potassium 5.9 H (3.5-5.1) mmol/L Chloride 111 H (98-107) mmol/L BUN 41 H (9-20) mg/dL Creatinine 6.30 H (0.66-1.25) mg/dL Glucose 166 H (74-99) mg/dL POC Glucose (mg/dL) 165 H (75-99) mg/dL Diabetes panel 09/15/20 Range/Units 10:39 Sodium 142 (137-145) mmol/L Potassium 5.9 H (3.5-5.1) mmol/L Chloride 111 H (98-107) mmol/L Carbon Dioxide 22 (22-30) mmol/L BUN 41 H (9-20) mg/dL Creatinine 6.30 H (0.66-1.25) mg/dL Glucose 166 H (74-99) mg/dL Calcium 9.0 (8.4-10.2) mg/dL Calcium panel 09/15/20 Range/Units 10:39 Calcium 9.0 (8.4-10.2) mg/dL Pituitary panel 09/15/20 Range/Units 10:39 Sodium 142 (137-145) mmol/L Potassium 5.9 H (3.5-5.1) mmol/L Chloride 111 H (98-107) mmol/L Carbon Dioxide 22 (22-30) mmol/L BUN 41 H (9-20) mg/dL Creatinine 6.30 H (0.66-1.25) mg/dL Glucose 166 H (74-99) mg/dL Calcium 9.0 (8.4-10.2) mg/dL Adrenal panel 09/15/20 Range/Units 10:39 Sodium 142 (137-145) mmol/L Potassium 5.9 H (3.5-5.1) mmol/L Chloride 111 H (98-107) mmol/L Carbon Dioxide 22 (22-30) mmol/L BUN 41 H (9-20) mg/dL Creatinine 6.30 H (0.66-1.25) mg/dL Glucose 166 H (74-99) mg/dL Calcium 9.0 (8.4-10.2) mg/dL
--- NOTE | 2020-09-15 15:06 | P.PCN ---
Description of Procedure: Preoperative diagnoses is acute chronic renal failure hyperkalemia Postero-same Procedure patient brought to the Planning Aide Drake of the neck and chest was prepped and draped applied a sterile manner. 1% lidocaine were infiltrated at the ultrasound-guided micropuncture introducer right jugular vein micropuncture guidewire was passed and 4. a right internal. After that we passed a regular guidewire through the sheath and which was parked at the inferior vena cava. Tunnel was created through the terminal be brought 23 same dialysis catheter sheath was advanced through the sheath we introduced the dialysis catheter tip of The superior vena cava and at her ejection. Flushed with heparin saline and Hep-Lock secured with 3-0 nylon dressing applied patient tolerated the procedure well
[2020-09-15] MEDS: LORazepam 0.5 MG TAB PO PRN ×2 (15:26→21:59)
--- NOTE | 2020-09-15 15:41 | IR ---
EXAMINATION TYPE: IR cvc insert central tunneled DATE OF EXAM: 09/15/2020 COMPARISON: NONE HISTORY: Fluoroscopy time. Fluoroscopy was provided to the referring clinician.
[2020-09-15 16:28] LABS: Glucose,Whole Blood 145 mg/dL (75-99)
[2020-09-15] MEDS ORDERED: INSULIN REGULAR 100 UNIT/ML VIAL (IV) IV ONE (17:03)
[2020-09-15] MEDS ORDERED: DEXTROSE 50% SYRINGE 50 ML IVP STA (17:04)
--- NOTE | 2020-09-15 18:27 | P.PN ---
Subjective Progress Note Date: 09/15/20 This is a 49-year-old gentleman admitted with a left diabetic plantar foot wound, had been following with a md senior research scientist, worsened. Reports history of prior surgery to the affected foot with resulting plate with 16 screws. Evaluated by vascular surgery, bone scan in progress. Scheduled for I&D and potentially amputation of first, possibly a second toes. Wound culture pending. Maintained on IV antibiotics of clindamycin and vancomycin. Renal function stable. Afebrile, WBC trending down, 16.4. Blood sugars better controlled. Denies chest pain, palpitations or shortness of breath. 09/08/2020 bone scan reported suspicious for osteomyelitis involving the second digit of the left lower, with likely underlying cellulitis. status post left second toe amputation, postop day #1, tolerated well. Pain controlled. Earlier this morning patient had gotten up to bathroom, with significant bleeding re ported from site. Pressure dressing applied, dressing and currently clean dry and intact, labs pending. Maintained on IV antibiotics daptomycin and Zosyn, and IV fluid hydration. Afebrile. 09/09/2020 maintained on IV antibiotics as per ID. Reported diarrhea, suspect antibiotic related. Lactinex added to med regimen. Hemoglobin stable. Reports throbbing of affected lower extremity. Afebrile, wound cultures pending. Creatinine jumped to 2.62 yesterday; patient had been on vancomycin initially. Maintained on IV fluid hydration. Repeat labs pending. Blood sugars elevated, ranging from 180s to 250s. 09/10/2020 maintained on IV antibiotics, creatinine continues to jump to 5.22, nephrology consulted.potassium 5.8 Developed increasing tremors, lithium level I.2, ammonia level less than 9. Neurology consulted. Noncompliant with consistent carb diet; staff reports family continues to bring him in a nondiabetic food/drink, package of combos sitting on his bedside table. Blood s ugars ranging 180s to 200. Afebrile. Pain had been controlled until he ambulated with PT. 09/11/2020 complains of urinary retention, bladder scanned for greater than 400, inability to place urinary catheter-3 attempts, renal function continues to worsen with creatinine up to 5.96. Afebrile, WBC 14.33. Blood sugars better controlled. Levemir increased yesterday, blood sugars better controlled. Hemoglobin 12.1, platelets 271. 09/14/2020 sitting up in chair. Denies chest pain, palpitations. Reports exertional shortness of breath. Tremors appear mildly improved. Complains of phantom pain. Reports he is unable to take Seroquel as it causes him restless leg syndrome. Scheduled for brain MRI this morning. Maintained on Unasyn, afebrile. Denies nausea or vomiting. Blood sugars controlled. Labs pending. 09/15/2020 reporting decreased appetite with nausea. renal function continues to worsen, creatinine 6.3. Potassium 5.9. Denies chest pain, palpitations or shortness of breath. Objective - Vital Signs Vital signs: Vital Signs Temp 98.4 F 09/15/20 15:05 Pulse 103 H 09/15/20 16:20 Resp 20 09/15/20 15:05 BP 131/99 09/15/20 16:20 Pulse Ox 98 09/15/20 15:20 Intake & Output 09/14/20 09/15/20 09/15/20 18:59 06:59 18:59 Intake Total 50 Output Total 2300 1550 1300 Balance -2300 -1550 -1250 Intake: IV 50 Output: Urine 2300 1550 1300 Other: Voiding Method Indwelling Catheter Indwelling Catheter Indwelling Catheter # Bowel Movements 1 - Exam PHYSICAL EXAM: VITAL SIGNS: As above GENERAL: Obese, sitting up in chair, no acute distress. HEENT: Conjunctivae normal. eyes normal. NECK: No JVD. No thyroid enlargement. No LNs CARDIOVASCULAR: S1, S2 regular. No murmur. RESPIRATION: Breath sounds diminished in the bases. No rhonchi or crackles. ABDOMEN: Soft, nondistended, nontender . No guarding. no masses palpable.positive Bowel sounds. LEGS: Positive bilateral lower extremity edema, left foot dressing clean dry and intact, pink anterior left lower extremity, palpable diminished DP pulse, wearin g ortho shoe. PSYCHIATRY: Alert and oriented X3, mood and affect normal. NERVOUS SYSTEM: Cranial N 2-12 grossly normal. Moves all 4 limbs. No focal deficits.Strength and sensation grossly intact. Spontaneous jerking/twitching/myoclonic jerks of upper torso/upper extremities Skin: Warm and dry, no rash. Microbiology 09/07/20 16:19 Foot - Left Anaerobic Culture - Final Anaerobic Gm Negative Bacilli Anaerobic Gm Negative Bacilli#2 Anaerobic Gram Positive Cocci 09/06/20 12:19 Blood Blood Culture - Final No Growth after 144 hours 09/06/20 12:18 Blood Blood Culture - Final No Growth after 144 hours 09/07/20 16:19 Foot - Left Gram Stain - Final 09/07/20 16:19 Foot - Left Wound Culture - Final 09/06/20 12:22 Foot - Left Gram Stain - Final 09/06/20 12:22 Foot - Left Wound Culture - Final - Labs CBC & Chem 7: 09/13/20 06:24 09/15/20 10:39 Labs: Abnormal Lab Results - Last 24 Hours (Table) 09/14/20 09/15/20 09/15/20 Range/Units 20:20 06:43 10:39 Potassium 5.9 H (3.5-5.1) mmol/L Chloride 111 H (98-107) mmol/L BUN 41 H (9-20) mg/dL Creatinine 6.30 H (0.66-1.25) mg/dL Glucose 166 H (74-99) mg/dL POC Glucose (mg/dL) 135 H 140 H (75-99) mg/dL 09/15/20 09/15/20 Range/Units 11:17 16:24 Potassium (3.5-5.1) mmol/L Chloride (98-107) mmol/L BUN (9-20) mg/dL Creatinine (0.66-1.25) mg/dL Glucose (74-99) mg/dL POC Glucose (mg/dL) 165 H 145 H (75-99) mg/dL Assessment and Plan Assessment: Possible sepsis, present on admission related to Acute Diabetic wound of left foot, failed outpatient treatment Osteomyelitis of left foot, second digit status post bone scan, status post amputation of left second toe Acute renal failure, related to ATN secondary to vancomycin, nsaids, urinary re tention, worsening. Hyperkalemia secondary to the above Metabolic acidosis secondary to the above Urinary retention, status post Jarquin catheter placement Tremors, lithium level high end of therapeutic, possible but doubt seizures, possibly medication related, suspect metablic as per neurology. History of prior left foot surgery with reported plate and screws Diabetes mellitus type 2, hyperglycemic, hemoglobin A1c 7.9. Hypertension Hyperlipidemia Obstructive sleep apnea Peripheral neuropathy PTSD, bipolar, depression, anxiety History of cocaine, marijuana, opiates, prescription drug abuse Morbid obesity, BMI 50.2 Plan: Continue on current medication regime ,monitoring and symptomatic jerome tment. Hyperkalemic cocktail ordered. Vascular surgery consulted for 2 for dialysis catheter. Initiation of dialysis tomorrow as per nephrology. IV antibiotics per ID. Close monitoring of Accu-Cheks. Close monitoring of renal function with repeat labs ordered for a.m. follow closely with multiple consults. The impression and plan of care has been dictated as directed. : I performed a history and examination of this patient, discussed the same with the dictator. I agree with the dictator's note ,documented as a scribe. Any additional findings or plans will be noted.
[2020-09-15 20:42] LABS: Glucose,Whole Blood 115 mg/dL (75-99)
[2020-09-15] MEDS: traZODone HCL 100 MG TAB PO SCH (21:25)
[2020-09-15] MEDS: ZIPRASIDONE 40 MG CAP PO SCH (21:25)
--- NOTE | 2020-09-16 05:05 | PN ---
PROGRESS NOTE DATE OF SERVICE: 09/15/2020 REASON FOR FOLLOWUP: Left 2nd toe gangrene diabetic foot infection. INTERVAL HISTORY: The patient is afebrile. The patient is breathing comfortably. Patient denies having any chest pain, shortness of breath. No cough. No abdominal pain. No worsening pain to the left foot. PHYSICAL EXAMINATION: Blood pressure 164/79, pulse 80. Temperature is 97.8. He is 97% on room air. General description is a middle-aged male lying in bed in no distress. Respiratory system: Unlabored breathing. Clear to auscultation anteriorly. Heart: S1, S2. Regular rate and rhythm. Abdomen: Soft, no tenderness. Left foot is currently dressed up. No obvious drainage on the dressing. LABS: BUN of 41, creatinine . DIAGNOSTIC IMPRESSION AND PLAN: Patient with left diabetic foot infection status post amputation of left 2nd toe. Culture positive for anaerobes species, patient is covered with Unasyn with worsening kidney function getting prepared for dialysis. Continue supportive care. MMODL / IJN: [id number] /
[2020-09-16 05:59] LABS: Hepatitis B Surface AB- Quant <3.5 mIU/mL; Hepatitis B Surface Antibody Non-Reactive (Non-Reactive); Hepatitis B Surface Antigen Non-Reactive (Non-Reactive)
[2020-09-16 07:03] LABS: Glucose,Whole Blood 70 mg/dL (75-99)
[2020-09-16] MEDS: Semaglutide [Rybelsus] 3 MG Tablet PO SCH (07:05)
[2020-09-16] MEDS: INSULIN ASPART (NovoLOG) 100 UNIT/ML VIAL SQ SCH ×7 (07:05→22:08)
[2020-09-16] MEDS: LACTOBACILLUS ACIDOPH & BULGAR 1 EACH PACKET PO SCH ×3 (08:22→22:09)
[2020-09-16] MEDS: AMPICILLIN-SULBACTAM 3 GM in SODIUM CHLORIDE 0.9% 100 ML IVPB SCH (08:29)
[2020-09-16] MEDS: PANTOPRAZOLE 40 MG TABLET PO SCH (08:29)
[2020-09-16] MEDS: INSULIN DETEMIR (LEVEMIR) 100 UNIT/ML SYR SQ SCH ×2 (08:29→22:08)
[2020-09-16] MEDS: busPIRone HCl 10 MG TAB PO SCH ×2 (08:29→22:07)
[2020-09-16] MEDS: amLODIPine 5 MG TAB PO SCH (08:29)
[2020-09-16] MEDS: hydrOXYzine pamoate 25 MG CAP PO SCH ×2 (08:29→22:07)
[2020-09-16] MEDS: HEPARIN SODIUM,PORCINE/PF 5,000 UNIT/0.5 ML SYRINGE SQ SCH ×2 (08:29→22:09)
[2020-09-16] MEDS: FAMOTIDINE 20 MG TAB PO SCH (08:29)
[2020-09-16] MEDS: TAMSULOSIN 0.4 MG CAP.ER.24H PO SCH (08:29)
[2020-09-16] MEDS: DULoxetine HCL 60 MG CAPSULE.DR PO SCH ×2 (08:30→22:07)
[2020-09-16 10:47] LABS: Basophils % (A) 0.7 %; Eosinophils # (A) 0.88 X 10*3/uL (0.04-0.35); HCT 39.2 % (39.6-50.0); Lymphocytes # (A) 3.25 X 10*3/uL (0.90-5.00); Lymphocytes % (A) 22.1 %; MCH 29.7 pg (27.0-32.0); MCHC 30.6 g/dL (32.0-37.0); Mean Platelet Volume 11.1 fL (9.5-12.2); Monocytes # (A) 1.39 X 10*3/uL (0.20-1.00); Monocytes % (A) 9.5 %; Neutrophils # (A) 8.67 X 10*3/uL (1.80-7.70); Platelet Count 304 X 10*3/uL (140-440); RBC 4.04 X 10*6/uL (4.40-5.60); RDW 14.2 % (11.5-14.5); WBC 14.68 X 10*3/uL (4.50-10.00)
[2020-09-16 11:23] LABS: Glucose,Whole Blood 207 mg/dL (75-99)
[2020-09-16 12:14] LABS: African American GFR (CKD) 11.8 (60.0-200.0); Anion Gap 6.7 mmol/L (4.00-12.00); BUN/Creat Ratio 7.46 Ratio (12.00-20.00); Calcium 8.6 mg/dL (8.7-10.3); Carbon Dioxide 25.3 mmol/L (21.6-31.8); Non-African American GFR(CKD) 10.1 (60.0-200.0)
[2020-09-16] MEDS: LORazepam 0.5 MG TAB PO PRN (12:30)
--- NOTE | 2020-09-16 15:00 | P.PN ---
Subjective Progress Note Date: 09/16/20 This is a 49-year-old gentleman admitted with a left diabetic plantar foot wound, had been following with a server security administrator, worsened. Reports history of prior surgery to the affected foot with resulting plate with 16 screws. Evaluated by vascular surgery, bone scan in progress. Scheduled for I&D and potentially amputation of first, possibly a second toes. Wound culture pending. Maintained on IV antibiotics of clindamycin and vancomycin. Renal function stable. Afebrile, WBC trending down, 16.4. Blood sugars better controlled. Denies chest pain, palpitations or shortness of breath. 09/08/2020 bone scan reported suspicious for osteomyelitis involving the second digit of the left lower, with likely underlying cellulitis. status post left second toe amputation, postop day #1, tolerated well. Pain controlled. Earlier this morning patient had gotten up to bathroom, with significant bleeding re ported from site. Pressure dressing applied, dressing and currently clean dry and intact, labs pending. Maintained on IV antibiotics daptomycin and Zosyn, and IV fluid hydration. Afebrile. 09/09/2020 maintained on IV antibiotics as per ID. Reported diarrhea, suspect antibiotic related. Lactinex added to med regimen. Hemoglobin stable. Reports throbbing of affected lower extremity. Afebrile, wound cultures pending. Creatinine jumped to 2.62 yesterday; patient had been on vancomycin initially. Maintained on IV fluid hydration. Repeat labs pending. Blood sugars elevated, ranging from 180s to 250s. 09/10/2020 maintained on IV antibiotics, creatinine continues to jump to 5.22, nephrology consulted.potassium 5.8 Developed increasing tremors, lithium level I.2, ammonia level less than 9. Neurology consulted. Noncompliant with consistent carb diet; staff reports family continues to bring him in a nondiabetic food/drink, package of combos sitting on his bedside table. Blood s ugars ranging 180s to 200. Afebrile. Pain had been controlled until he ambulated with PT. 09/11/2020 complains of urinary retention, bladder scanned for greater than 400, inability to place urinary catheter-3 attempts, renal function continues to worsen with creatinine up to 5.96. Afebrile, WBC 14.33. Blood sugars better controlled. Levemir increased yesterday, blood sugars better controlled. Hemoglobin 12.1, platelets 271. 09/14/2020 sitting up in chair. Denies chest pain, palpitations. Reports exertional shortness of breath. Tremors appear mildly improved. Complains of phantom pain. Reports he is unable to take Seroquel as it causes him restless leg syndrome. Scheduled for brain MRI this morning. Maintained on Unasyn, afebrile. Denies nausea or vomiting. Blood sugars controlled. Labs pending. 09/15/2020 reporting decreased appetite with nausea. renal function continues to worsen, creatinine 6.3. Potassium 5.9. Denies chest pain, palpitations or shortness of breath. 09/16/2020 right internal jugular temporary dialysis catheter placed yesterday. Tolerated procedure well. BUN 44, creatinine 5.9, potassium 6. Scheduled for first hemodialysis session this morning. Denies chest pain, palpitations or shortness of breath. Maintained on Unasyn. Left foot pain controlled. Reports he is afraid. Afebrile, WBC trending down. Objective - Vital Signs Vital signs: Vital Signs Temp 97.9 F 09/16/20 14:00 Pulse 98 09/16/20 14:00 Resp 20 09/16/20 14:00 BP 155/69 09/16/20 14:00 Pulse Ox 97 09/16/20 14:00 Intake & Output 09/15/20 09/16/20 09/16/20 18:59 06:59 18:59 Intake Total 50 Output Total 1300 2500 Balance -1250 -2500 Weight 154.221 kg Intake: IV 50 Output: Urine 1300 2500 Other: Voiding Method Indwelling Catheter Indwelling Catheter Indwelling Catheter # Bowel Movements 1 - Exam PHYSICAL EXAM: VITAL SIGNS: As above GENERAL: Obese, sitting up in bed, no acute distress. Mild anxiety. HEENT: Conjunctivae normal. eyes normal. NECK: No JVD. No thyroid enlargement. No LNs. Right IJ temp HD cath. present,dressing C,D,I. CARDIOVASCULAR: S1, S2 regular. No murmur. RESPIRATION: Breath sounds diminished in the bases. No rhonchi or crackles. ABDOMEN: Soft, nondistended, nontender . No guarding. no masses palpable.positive Bowel sounds. LEGS: Positive bilateral lower extremity edema, left foot dressing clean dry and intact,palpable diminished DP pulse PSYCHIATRY: Alert and oriented X3, mood and affect normal. NERVOUS SYSTEM: Cranial N 2-12 grossly normal. Moves all 4 limbs. No focal deficits.Strength and sensation grossly intact. Skin: Warm and dry, no rash. Microbiology 09/07/20 16:19 Foot - Left Anaerobic Culture - Final Anaerobic Gm Negative Bacilli Anaerobic Gm Negative Bacilli#2 Anaerobic Gram Positive Cocci 09/06/20 12:19 Blood Blood Culture - Final No Growth after 144 hours 09/06/20 12:18 Blood Blood Culture - Final No Growth after 144 hours 09/07/20 16:19 Foot - Left Gram Stain - Final 09/07/20 16:19 Foot - Left Wound Culture - Final 09/06/20 12:22 Foot - Left Gram Stain - Final 09/06/20 12:22 Foot - Left Wound Culture - Final - Labs CBC & Chem 7: 09/16/20 05:22 09/16/20 05:22 Labs: Abnormal Lab Results - Last 24 Hours (Table) 09/15/20 09/15/20 09/16/20 Range/Units 16:24 20:41 05:22 WBC 14.68 H (4.50-10.00) X 10*3/uL RBC 4.04 L (4.40-5.60) X 10*6/uL Hgb 12.0 L (13.0-17.0) g/dL Hct 39.2 L (39.6-50.0) % MCHC 30.6 L (32.0-37.0) g/dL Immature Gran # 0.39 H (0.00-0.04) X 10*3/uL Neutrophils # 8.67 H (1.80-7.70) X 10*3/uL Monocytes # 1.39 H (0.20-1.00) X 10*3/uL Eosinophils # 0.88 H (0.04-0.35) X 10*3/uL Potassium (3.5-5.5) mmol/L Chloride (96-109) mmol/L BUN (9.0-27.0) mg/dL Creatinine (0.6-1.5) mg/dL Est GFR (CKD-EPI)AfAm (60.0-200.0) Est GFR (CKD-EPI)NonAf (60.0-200.0) BUN/Creatinine Ratio (12.00-20.00) Ratio Glucose (70-110) mg/dL POC Glucose (mg/dL) 145 H 115 H (75-99) mg/dL Calcium (8.7-10.3) mg/dL 09/16/20 09/16/20 09/16/20 Range/Units 05:22 07:01 11:21 WBC (4.50-10.00) X 10*3/uL RBC (4.40-5.60) X 10*6/uL Hgb (13.0-17.0) g/dL Hct (39.6-50.0) % MCHC (32.0-37.0) g/dL Immature Gran # (0.00-0.04) X 10*3/uL Neutrophils # (1.80-7.70) X 10*3/uL Monocytes # (0.20-1.00) X 10*3/uL Eosinophils # (0.04-0.35) X 10*3/uL Potassium 6.0 H (3.5-5.5) mmol/L Chloride 110 H (96-109) mmol/L BUN 44.0 H (9.0-27.0) mg/dL Creatinine 5.9 H (0.6-1.5) mg/dL Est GFR (CKD-EPI)AfAm 11.8 L (60.0-200.0) Est GFR (CKD-EPI)NonAf 10.1 L (60.0-200.0) BUN/Creatinine Ratio 7.46 L (12.00-20.00) Ratio Glucose 67 L (70-110) mg/dL POC Glucose (mg/dL) 70 L 207 H (75-99) mg/dL Calcium 8.6 L (8.7-10.3) mg/dL Assessment and Plan Assessment: Possible sepsis, present on admission related to Acute Diabetic wound of left foot, failed outpatient treatment Osteomyelitis of left foot, second digit status post bone scan, status post amputation of left second toe Acute renal failure, related to ATN secondary to vancomycin, nsaids, urinary retention, worsening. Hemodialysis initiated. Hyperkalemia secondary to the above Metabolic acidosis secondary to the above Urinary retention, status post Jarquin catheter placement Tremors, lithium level high end of therapeutic, possible but doubt seizures, possibly medication related, suspect metablic as per neurology. History of prior left foot surgery with reported plate and screws Diabetes mellitus type 2, hyperglycemic, hemoglobin A1c 7.9. Hypertension Hyperlipidemia Obstructive sleep apnea Peripheral neuropathy PTSD, bipolar, depression, anxiety History of cocaine, marijuana, opiates, prescription drug abuse, Morbid obesity, BMI 50.2 Plan: Continue on current medication regime ,monitoring and symptomatic treatment. Initiation of dialysis today. IV antibiotics per ID. Close monitoring of Accu-Cheks. Ativan prn for anxiety in place. Close monitoring of renal function with repeat labs ordered for a.m. follow closely with multiple consults. The impression and plan of care has been dictated as directed. : I performed a history and examination of this patient, discussed the same with the dictator. I agree with the dictator's note ,documented as a scribe. Any additional findings or plans will be noted.
[2020-09-16] MEDS: HYDROcodone/APAP 10-325MG 1 EACH TAB PO PRN ×2 (16:08→23:23)
[2020-09-16 16:31] LABS: Glucose,Whole Blood 83 mg/dL (75-99)
[2020-09-16] MEDS: FUROSEMIDE 10 MG/ML 10 ML VIAL IV SCH (16:31)
--- NOTE | 2020-09-16 17:09 | P.PN ---
Subjective Progress Note Date: 09/16/20 09/16/2020: Patient is standing by the TV, with a walker nearby. He was ambulating slowly and appeared steady. Patient had undergone hemodialysis today. Tremors are better. No new concerns. Feels short of breath. 09/15/2020: Patient is sitting on side of the bed. Appears to be in mild respiratory distress. Offers no new complaints. Patient states he was seen by script developer and there were considering starting dialysis from tomorrow. 09/14/2020: Patient was seen for a follow-up. Patient initially seen by Dr. Sulaiman Capellan. Please refer to his note for details. Patient has presented with tremors. Patient has diabetes on gabapentin. Patient had lithium started about a month ago. Patient has also has acute renal failure with creatinine between 5-6. Patient recently had undergone surgery, in which one of the toe was amputated. He was on antibiotics. Patient's father was present today. He states that patient does have mild even before surgery, but became worse in the last few days. Patient's father states that he is doing better. First time he is able to hold his cellular phone. He did drop phone 3 times today. He still cannot dial because of the tremors. Yesterday he was not able to even hold the cell phone. WORK-UP: CT of the head is reported as age-related atrophic and chronic small vessel ischemic change without acute intracranial process seen at this time. EEG on 09/11/2020: It is an abnormal routine EEG. The background slowing is suggestive of mild encephalopathy likely due to toxic-metabolic encephalopathy. There are no focal slowing epileptiform discharges or seizure on the EEG. The tremor seen on the EEG does not correlate with seizure. AST is 40, ALT 30, ammonia level < 9. TSH is 0.510 normal Objective - Vital Signs Vital signs: Vital Signs Temp 97.2 F L 09/16/20 15:43 Pulse 102 H 09/16/20 15:43 Resp 21 09/16/20 15:43 BP 179/84 09/16/20 15:43 Pulse Ox 97 09/16/20 14:00 Intake & Output 09/15/20 09/16/20 09/16/20 18:59 06:59 18:59 Intake Total 50 Output Total 1300 2500 1200 Balance -1250 -2500 -1200 Weight 154.221 kg Intake: IV 50 Output: Urine 1300 2500 Hemodialysis 1200 Other: Voiding Method Indwelling Catheter Indwelling Catheter Indwelling Catheter # Bowel Movements 1 - Exam Patient is alert and awake, in mild distress. Speech and language functions are normal. Patient has mild tremors of outstretched hands, and develops myoclonic jerks with pronated hands, but better than yesterday. Patient has moderate tremor for [id number] testing bilaterally. - Labs CBC & Chem 7: 09/16/20 05:22 09/16/20 05:22 Labs: Abnormal Lab Results - Last 24 Hours (Table) 09/15/20 09/16/20 09/16/20 Range/Units 20:41 05:22 05:22 WBC 14.68 H (4.50-10.00) X 10*3/uL RBC 4.04 L (4.40-5.60) X 10*6/uL Hgb 12.0 L (13.0-17.0) g/dL Hct 39.2 L (39.6-50.0) % MCHC 30.6 L (32.0-37.0) g/dL Immature Gran # 0.39 H (0.00-0.04) X 10*3/uL Neutrophils # 8.67 H (1.80-7.70) X 10*3/uL Monocytes # 1.39 H (0.20-1.00) X 10*3/uL Eosinophils # 0.88 H (0.04-0.35) X 10*3/uL Potassium 6.0 H (3.5-5.5) mmol/L Chloride 110 H (96-109) mmol/L BUN 44.0 H (9.0-27.0) mg/dL Creatinine 5.9 H (0.6-1.5) mg/dL Est GFR (CKD-EPI)AfAm 11.8 L (60.0-200.0) Est GFR (CKD-EPI)NonAf 10.1 L (60.0-200.0) BUN/Creatinine Ratio 7.46 L (12.00-20.00) Ratio Glucose 67 L (70-110) mg/dL POC Glucose (mg/dL) 115 H (75-99) mg/dL Calcium 8.6 L (8.7-10.3) mg/dL 09/16/20 09/16/20 Range/Units 07:01 11:21 WBC (4.50-10.00) X 10*3/uL RBC (4.40-5.60) X 10*6/uL Hgb (13.0-17.0) g/dL Hct (39.6-50.0) % MCHC (32.0-37.0) g/dL Immature Gran # (0.00-0.04) X 10*3/uL Neutrophils # (1.80-7.70) X 10*3/uL Monocytes # (0.20-1.00) X 10*3/uL Eosinophils # (0.04-0.35) X 10*3/uL Potassium (3.5-5.5) mmol/L Chloride (96-109) mmol/L BUN (9.0-27.0) mg/dL Creatinine (0.6-1.5) mg/dL Est GFR (CKD-EPI)AfAm (60.0-200.0) Est GFR (CKD-EPI)NonAf (60.0-200.0) BUN/Creatinine Ratio (12.00-20.00) Ratio Glucose (70-110) mg/dL POC Glucose (mg/dL) 70 L 207 H (75-99) mg/dL Calcium (8.7-10.3) mg/dL Assessment and Plan Assessment: * Tremor most likely metabolic. Patient has acute renal failure, the likely cause. Patient was also on gabapentin 600 mg 3 times a day, which likely in the setting of acute renal failure produced myoclonic jerks. * Acute kidney injury, worsening, started hemodialysis 09/16/2020. * Infected diabetic foot wounds, status post left second toe amputation on 09/07/2020 * Elevated sugar and his DM remains uncontrolled * Diabetes mellitus * History of left foot surgery * Diabetic neuropathy * History of hypertension * Hyperlipidemia Plan: * Patient's BUN is 44, creatinine 5.9, slightly better. Started hemodialysis today. * Stay off gabapentin. Await gabapentin level. We'll resume gabapentin 100 mg twice a day after the level returns back to normal, to prevent withdrawal symptoms/seizures. * Stay off lithium. * No other neurological workup indicated.
--- NOTE | 2020-09-16 17:14 | PN ---
PROGRESS NOTE Patient is seen for followup for acute kidney injury. He is currently seen on dialysis. Patient has tolerated treatment fairly well. He has had a femoral catheter placed. This morning, patient is awake. He continues to have good urine output. Systolic blood pressure 160s. EXAMINATION: Heart rate about 100 per minute. Patient is afebrile. Examination shows bilateral lower extremity edema. Left foot is dressed with a left 2nd toe amputation. Abdomen is morbidly obese. Examination of the heart S1, S2. Examination of the lungs, decreased breath sounds at the bases. SCIENTIST exam grossly intact. However, patient has had tremors/asterixis. LAB: Show sodium 142, potassium 6.0, chloride 110, CO2 is 25.3 and creatinine 6.7, calcium 8.6, hemoglobin 12.0 g/dL. ASSESSMENT: 1. Acute kidney injury, acute tubular necrosis and secondary to vancomycin toxicity, nonoliguric with good urine output. However creatinine continues to rise. The patient is also hyperkalemic now with volume overload and subtle signs of uremia. Therefore, he has been started on dialysis. Patient is tolerating his first treatment fairly well. We will plan to dialyze him again tomorrow. 2. Hyperkalemia associated with acute kidney injury. Expect improvement post dialysis. 3. Volume overload. Continue off IV fluids. Increase UF to about 4 L tomorrow. 4. Hypertension, partly volume sensitive. 5. Left 2nd toe osteomyelitis, status post amputation. 6. Urine retention currently with indwelling Jarquin catheter. 7. Metabolic acidosis secondary to renal failure, now improved. PLAN: Repeat dialysis in a.m. and add IV Lasix. MMODL / IJN: [id number] /
--- NOTE | 2020-09-16 18:41 | PN ---
PROGRESS NOTE DATE OF SERVICE: 09/16/2020 REASON FOR FOLLOWUP: Left second toe diabetic foot infection. INTERVAL HISTORY: The patient is afebrile. The patient is breathing comfortably. No chest pain, abdominal pain, no symptoms left foot. PHYSICAL EXAMINATION: Blood pressure 129/84, pulse 102, temperature 97.2. He is 97% on room air. General description is a middle-aged male lying in bed in no distress. Respiratory system: Unlabored breathing, clear to auscultation anteriorly. Heart S1, S2. Regular rate and rhythm. Abdomen: Soft, no tenderness. Left leg is clean, dressed up. LABS: Hemoglobin is 12.7, white count 14.7, creatinine 5.9. DIAGNOSTIC IMPRESSION AND PLAN: Patient with left second toe infection status post amputation of the left second toe. Patient, unfortunately, has developed renal insufficiency and consultation for possible dialysis. The patient is covered with Unasyn, to continue and monitor clinical course closely. MMODL / IJN: [id number] /
[2020-09-16 20:53] LABS: Glucose,Whole Blood 162 mg/dL (75-99)
[2020-09-16] MEDS: traZODone HCL 100 MG TAB PO SCH (22:08)
[2020-09-16] MEDS: ZIPRASIDONE 40 MG CAP PO SCH (22:09)
[2020-09-17 06:58] LABS: Glucose,Whole Blood 84 mg/dL (75-99)
[2020-09-17] MEDS: DULoxetine HCL 60 MG CAPSULE.DR PO SCH ×2 (07:48→21:52)
[2020-09-17] MEDS: HYDROcodone/APAP 10-325MG 1 EACH TAB PO PRN ×3 (07:48→21:52)
[2020-09-17] MEDS: PANTOPRAZOLE 40 MG TABLET PO SCH (07:48)
[2020-09-17] MEDS: INSULIN DETEMIR (LEVEMIR) 100 UNIT/ML SYR SQ SCH ×2 (07:49→21:49)
[2020-09-17] MEDS: hydrOXYzine pamoate 25 MG CAP PO SCH ×2 (07:49→21:50)
[2020-09-17] MEDS: FAMOTIDINE 20 MG TAB PO SCH (07:49)
[2020-09-17] MEDS: amLODIPine 5 MG TAB PO SCH (07:49)
[2020-09-17] MEDS: TAMSULOSIN 0.4 MG CAP.ER.24H PO SCH (07:49)
[2020-09-17] MEDS: Semaglutide [Rybelsus] 3 MG Tablet PO SCH (07:50)
[2020-09-17] MEDS: AMPICILLIN-SULBACTAM 3 GM in SODIUM CHLORIDE 0.9% 100 ML IVPB SCH (07:50)
[2020-09-17] MEDS: INSULIN ASPART (NovoLOG) 100 UNIT/ML VIAL SQ SCH ×7 (07:50→21:37)
[2020-09-17] MEDS: LACTOBACILLUS ACIDOPH & BULGAR 1 EACH PACKET PO SCH ×3 (07:51→21:50)
[2020-09-17] MEDS: HEPARIN SODIUM,PORCINE/PF 5,000 UNIT/0.5 ML SYRINGE SQ SCH ×2 (07:51→21:49)
[2020-09-17] MEDS: busPIRone HCl 10 MG TAB PO SCH ×2 (07:51→21:52)
[2020-09-17] MEDS: FUROSEMIDE 10 MG/ML 10 ML VIAL IV SCH (07:51)
[2020-09-17] MEDS: HYDROmorphone 0.5 MG/0.5 ML SYRINGE IVP PRN (09:20)
[2020-09-17 11:25] LABS: Glucose,Whole Blood 149 mg/dL (75-99)
[2020-09-17] MEDS: LORazepam 0.5 MG TAB PO PRN (12:06)
[2020-09-17 12:11] LABS: Basophils # (A) 0.08 X 10*3/uL (0.00-0.10); Basophils % (A) 0.6 %; Eosinophils # (A) 0.86 X 10*3/uL (0.04-0.35); Eosinophils % (A) 6.9 %; HCT 39.9 % (39.6-50.0); HGB 12.3 g/dL (13.0-17.0); Lymphocytes # (A) 2.89 X 10*3/uL (0.90-5.00); Lymphocytes % (A) 23.3 %; MCH 29.4 pg (27.0-32.0); MCHC 30.8 g/dL (32.0-37.0); MCV 95.5 fL (80.0-97.0); Monocytes # (A) 1.19 X 10*3/uL (0.20-1.00); Monocytes % (A) 9.6 %; Neutrophils # (A) 7.17 X 10*3/uL (1.80-7.70); Neutrophils % (A) 57.7 %; Platelet Count 289 X 10*3/uL (140-440); RBC 4.18 X 10*6/uL (4.40-5.60); RDW 14.3 % (11.5-14.5); WBC 12.42 X 10*3/uL (4.50-10.00)
--- NOTE | 2020-09-17 12:40 | P.PN ---
Subjective Progress Note Date: 09/17/20 This is a 49-year-old gentleman admitted with a left diabetic plantar foot wound, had been following with a health management consultant, worsened. Reports history of prior surgery to the affected foot with resulting plate with 16 screws. Evaluated by vascular surgery, bone scan in progress. Scheduled for I&D and potentially amputation of first, possibly a second toes. Wound culture pending. Maintained on IV antibiotics of clindamycin and vancomycin. Renal function stable. Afebrile, WBC trending down, 16.4. Blood sugars better controlled. Denies chest pain, palpitations or shortness of breath. 09/08/2020 bone scan reported suspicious for osteomyelitis involving the second digit of the left lower, with likely underlying cellulitis. status post left second toe amputation, postop day #1, tolerated well. Pain controlled. Earlier this morning patient had gotten up to bathroom, with significant bleeding re ported from site. Pressure dressing applied, dressing and currently clean dry and intact, labs pending. Maintained on IV antibiotics daptomycin and Zosyn, and IV fluid hydration. Afebrile. 09/09/2020 maintained on IV antibiotics as per ID. Reported diarrhea, suspect antibiotic related. Lactinex added to med regimen. Hemoglobin stable. Reports throbbing of affected lower extremity. Afebrile, wound cultures pending. Creatinine jumped to 2.62 yesterday; patient had been on vancomycin initially. Maintained on IV fluid hydration. Repeat labs pending. Blood sugars elevated, ranging from 180s to 250s. 09/10/2020 maintained on IV antibiotics, creatinine continues to jump to 5.22, nephrology consulted.potassium 5.8 Developed increasing tremors, lithium level I.2, ammonia level less than 9. Neurology consulted. Noncompliant with consistent carb diet; staff reports family continues to bring him in a nondiabetic food/drink, package of combos sitting on his bedside table. Blood s ugars ranging 180s to 200. Afebrile. Pain had been controlled until he ambulated with PT. 09/11/2020 complains of urinary retention, bladder scanned for greater than 400, inability to place urinary catheter-3 attempts, renal function continues to worsen with creatinine up to 5.96. Afebrile, WBC 14.33. Blood sugars better controlled. Levemir increased yesterday, blood sugars better controlled. Hemoglobin 12.1, platelets 271. 09/14/2020 sitting up in chair. Denies chest pain, palpitations. Reports exertional shortness of breath. Tremors appear mildly improved. Complains of phantom pain. Reports he is unable to take Seroquel as it causes him restless leg syndrome. Scheduled for brain MRI this morning. Maintained on Unasyn, afebrile. Denies nausea or vomiting. Blood sugars controlled. Labs pending. 09/15/2020 reporting decreased appetite with nausea. renal function continues to worsen, creatinine 6.3. Potassium 5.9. Denies chest pain, palpitations or shortness of breath. 09/16/2020 right internal jugular temporary dialysis catheter placed yesterday. Tolerated procedure well. BUN 44, creatinine 5.9, potassium 6. Scheduled for first hemodialysis session this morning. Denies chest pain, palpitations or shortness of breath. Maintained on Unasyn. Left foot pain controlled. Reports he is afraid. Afebrile, WBC trending down. 09/17/2020 labs pending. Scheduled for another session of hemodialysis today. Denies nausea or vomiting. Denies abdominal pain. Maintained on IV antibiotics as per ID. Afebrile. Pain controlled. Objective - Vital Signs Vital signs: Vital Signs Temp 98.2 F 09/17/20 07:39 Pulse 78 09/17/20 07:39 Resp 18 09/17/20 07:45 BP 157/96 09/17/20 07:39 Pulse Ox 95 09/17/20 07:39 Intake & Output 09/16/20 09/17/20 09/17/20 18:59 06:59 18:59 Intake Total 660 Output Total 5650 3300 1150 Balance -4990 -3300 -1150 Weight 154.221 kg Intake: Oral 660 Output: Urine 4450 3300 1150 Hemodialysis 1200 Other: Voiding Method Indwelling Catheter Indwelling Catheter Indwelling Catheter # Bowel Movements 1 - Exam PHYSICAL EXAM: VITAL SIGNS: As above GENERAL: Obese, sitting up at side of bed, no acute distress. HEENT: Conjunctivae normal. eyes normal. NECK: No JVD. No thyroid enlargement. No LNs. Temporary hemodialysis cath dressing clean dry and intact. CARDIOVASCULAR: S1, S2 regular. No murmur. RESPIRATION: Breath sounds diminished in the bases. No rhonchi or crackles. ABDOMEN: Soft, nondistended, nontender . No guarding. no masses palpabl e.positive Bowel sounds. LEGS: Positive bilateral lower extremity edema, left foot dressing clean dry and intact,palpable diminished DP pulse PSYCHIATRY: Alert and oriented X3, mood and affect normal. NERVOUS SYSTEM: Cranial N 2-12 grossly normal. Moves all 4 limbs. No focal deficits.Strength and sensation grossly intact. Skin: Warm and dry, no rash. - Labs CBC & Chem 7: 09/17/20 06:26 09/16/20 05:22 Labs: Abnormal Lab Results - Last 24 Hours (Table) 09/14/20 09/16/20 09/16/20 Range/Units 16:39 05:22 05:22 WBC 14.68 H (4.50-10.00) X 10*3/uL RBC 4.04 L (4.40-5.60) X 10*6/uL Hgb 12.0 L (13.0-17.0) g/dL Hct 39.2 L (39.6-50.0) % MCHC 30.6 L (32.0-37.0) g/dL Immature Gran # 0.39 H (0.00-0.04) X 10*3/uL Neutrophils # 8.67 H (1.80-7.70) X 10*3/uL Monocytes # 1.39 H (0.20-1.00) X 10*3/uL Eosinophils # 0.88 H (0.04-0.35) X 10*3/uL Potassium 6.0 H (3.5-5.5) mmol/L Chloride 110 H (96-109) mmol/L BUN 44.0 H (9.0-27.0) mg/dL Creatinine 5.9 H (0.6-1.5) mg/dL Est GFR (CKD-EPI)AfAm 11.8 L (60.0-200.0) Est GFR (CKD-EPI)NonAf 10.1 L (60.0-200.0) BUN/Creatinine Ratio 7.46 L (12.00-20.00) Ratio Glucose 67 L (70-110) mg/dL POC Glucose (mg/dL) (75-99) mg/dL Calcium 8.6 L (8.7-10.3) mg/dL Gabapentin 20.9 H (2.0-12.0) ug/mL 09/16/20 09/16/20 Range/Units 11:21 20:52 WBC (4.50-10.00) X 10*3/uL RBC (4.40-5.60) X 10*6/uL Hgb (13.0-17.0) g/dL Hct (39.6-50.0) % MCHC (32.0-37.0) g/dL Immature Gran # (0.00-0.04) X 10*3/uL Neutrophils # (1.80-7.70) X 10*3/uL Monocytes # (0.20-1.00) X 10*3/uL Eosinophils # (0.04-0.35) X 10*3/uL Potassium (3.5-5.5) mmol/L Chloride (96-109) mmol/L BUN (9.0-27.0) mg/dL Creatinine (0.6-1.5) mg/dL Est GFR (CKD-EPI)AfAm (60.0-200.0) Est GFR (CKD-EPI)NonAf (60.0-200.0) BUN/Creatinine Ratio (12.00-20.00) Ratio Glucose (70-110) mg/dL POC Glucose (mg/dL) 207 H 162 H (75-99) mg/dL Calcium (8.7-10.3) mg/dL Gabapentin (2.0-12.0) ug/mL Assessment and Plan Assessment: Possible sepsis, present on admission related to Acute Diabetic wound of left foot, failed outpatient treatment Osteomyelitis of left foot, second digit status post bone scan, status post amputation of left second toe Acute renal failure, related to ATN secondary to vancomycin, nsaids, urinary retention, worsening. Hemodialysis initiated. Hyperkalemia secondary to the above Metabolic acidosis secondary to the above Urinary retention, status post Jarquin catheter placement Tremors, lithium level high end of therapeutic, possible but doubt seizures, possibly medication related, suspect metablic as per neurology. History of prior left foot surgery with reported plate and screws Diabetes mellitus type 2, hyperglycemic, hemoglobin A1c 7.9. Hypertension Hyperlipidemia Obstructive sleep apnea Peripheral neuropathy PTSD, bipolar, depression, anxiety History of cocaine, marijuana, opiates, prescription drug abuse, Morbid obesity, BMI 50.2 Plan: Continue on current medication regime ,monitoring and symptomatic treatment. Repeat Hemodialysis today. IV antibiotics per ID. Close monitoring of renal function with repeat labs ordered for a.m. follow closely with multiple consults. The impression and plan of care has been dictated as directed. : I performed a history and examination of this patient, discussed the same with the dictator. I agree with the dictator's note ,documented as a scribe. Any additional findings or plans will be noted.
[2020-09-17] MEDS: ONDANSETRON 4 MG/2 ML VIAL IVP PRN (14:34)
[2020-09-17 16:31] LABS: Glucose,Whole Blood 136 mg/dL (75-99)
--- NOTE | 2020-09-17 18:09 | P.PN ---
Subjective Progress Note Date: 09/17/20 09/17/2020: Patient had hemodialysis today, 1 L was taken out. He states feeling "not much better". No new concerns. 09/16/2020: Patient is standing by the TV, with a walker nearby. He was ambulating slowly and appeared steady. Patient had undergone hemodialysis today. Tremors are better. No new concerns. Feels short of breath. 09/15/2020: Patient is sitting on side of the bed. Appears to be in mild respiratory distress. Offers no new complaints. Patient states he was seen by junior mechanical engineer and there were considering starting dialysis from tomorrow. 09/14/2020: Patient was seen for a follow-up. Patient initially seen by Dr. Sulaiman Capellan. Please refer to his note for details. Patient has presented with tremors. Patient has diabetes on gabapentin. Patient had lithium started about a month ago. Patient has also has acute renal failure with creatinine between 5-6. Patient recently had undergone surgery, in which one of the toe was amputated. He was on antibiotics. Patient's father was present today. He states that patient does have mild even before surgery, but became worse in the last few days. Patient's father states that he is doing better. First time he is able to hold his cellular phone. He did drop phone 3 times today. He still cannot dial because of the tremors. Yesterday he was not able to even hold the cell phone. WORK-UP: CT of the head is reported as age-related atrophic and chronic small vessel ischemic change without acute intracranial process seen at this time. EEG on 09/11/2020: It is an abnormal routine EEG. The background slowing is suggestive of mild encephalopathy likely due to toxic-metabolic encephalopathy. There are no focal slowing epileptiform discharges or seizure on the EEG. The tremor seen on the EEG does not correlate with seizure. AST is 40, ALT 30, ammonia level < 9. TSH is 0.510 normal Objective - Vital Signs Vital signs: Vital Signs Temp 96.6 F L 09/17/20 15:44 Pulse 93 09/17/20 15:44 Resp 18 09/17/20 15:44 BP 123/81 09/17/20 17:15 Pulse Ox 95 09/17/20 07:39 Intake & Output 09/16/20 09/17/20 09/17/20 18:59 06:59 18:59 Intake Total 660 Output Total 5650 3300 4950 Balance -4990 -3300 -4950 Weight 154.221 kg Intake: Oral 660 Output: Urine 4450 3300 3950 Hemodialysis 1200 1000 Other: Voiding Method Indwelling Catheter Indwelling Catheter Indwelling Catheter # Bowel Movements 1 - Exam Patient is alert and awake, appears more comfortable. Speech and language functions are normal. Patient has mild tremors of outstretched hands, and develops myoclonic jerks with pronated hands, but better than yesterday. Patient has moderate tremor for [id number] testing bilaterally. - Labs CBC & Chem 7: 09/17/20 06:26 09/16/20 05:22 Labs: Abnormal Lab Results - Last 24 Hours (Table) 09/14/20 09/16/20 09/17/20 Range/Units 16:39 20:52 06:26 WBC 12.42 H (4.50-10.00) X 10*3/uL RBC 4.18 L (4.40-5.60) X 10*6/uL Hgb 12.3 L (13.0-17.0) g/dL MCHC 30.8 L (32.0-37.0) g/dL Immature Gran # 0.23 H (0.00-0.04) X 10*3/uL Monocytes # 1.19 H (0.20-1.00) X 10*3/uL Eosinophils # 0.86 H (0.04-0.35) X 10*3/uL POC Glucose (mg/dL) 162 H (75-99) mg/dL Gabapentin 20.9 H (2.0-12.0) ug/mL 09/17/20 09/17/20 Range/Units 11:23 16:30 WBC (4.50-10.00) X 10*3/uL RBC (4.40-5.60) X 10*6/uL Hgb (13.0-17.0) g/dL MCHC (32.0-37.0) g/dL Immature Gran # (0.00-0.04) X 10*3/uL Monocytes # (0.20-1.00) X 10*3/uL Eosinophils # (0.04-0.35) X 10*3/uL POC Glucose (mg/dL) 149 H 136 H (75-99) mg/dL Gabapentin (2.0-12.0) ug/mL Assessment and Plan Assessment: * Tremor most likely metabolic. Patient has acute renal failure, the likely cause. Patient was also on gabapentin 600 mg 3 times a day, which likely in the setting of acute renal failure produced myoclonic jerks. * Acute kidney injury, worsening, started hemodialysis 09/16/2020. * Infected diabetic foot wounds, status post left second toe amputation on 09/07/2020 * Elevated sugar and his DM remains uncontrolled * Diabetes mellitus * History of left foot surgery * Diabetic neuropathy * History of hypertension * Hyperlipidemia Plan: * Patient is on hemodialysis. * Gabapentin level was 20.9 (2-12). We'll resume gabapentin 100 mg twice a day, to prevent withdrawal symptoms/seizures. The dose may increase in future, depending upon improvement in renal functions. * Stay off lithium. * No other neurological workup indicated. * Neurology will sign off. Please reconsult neurology if any concerns.
--- NOTE | 2020-09-17 18:27 | PN ---
PROGRESS NOTE DATE OF SERVICE: 09/17/2020 REASON FOR FOLLOWUP: Left 2nd toe diabetic foot infection. INTERVAL HISTORY: Patient is afebrile. The patient is breathing comfortably. The patient denies having any chest pain or shortness of breath or cough. No abdominal pain. ( ), which is mild. No diarrhea or any worsening pain to the left foot. PHYSICAL EXAMINATION: Blood pressure 120/81, pulse of 90, temperature 96.6. General description is a middle- aged male up in the chair in no distress. Respiratory system: Unlabored breathing, clear to auscultation anteriorly. Heart: S1, S2. Regular rate and rhythm. Abdomen: Soft, no tenderness. LABS: Hemoglobin is 12.3, white count 12.42. DIAGNOSTIC IMPRESSION AND PLAN: Patient with left second toe diabetic foot infection status post amputation of the infected part. Culture with anaerobes. Patient has developed renal insufficiency with the patient monitored by Nephrology services. The patient continues to continue while inpatient. Local care with Aquacel Silver dressing and continue supportive care. MMODL / IJN: [id number] /
--- NOTE | 2020-09-17 18:54 | PN ---
PROGRESS NOTE Patient is seen for followup for acute kidney injury. Patient will have his second treatment of hemodialysis today. He continues to have good urine output with 24-hour urine output at about 2.8 L. He has been started on IV Lasix. Mentation appears to be slightly improved according to the patient. PHYSICAL EXAMINATION: On examination today, blood pressure this morning was elevated 157/96, heart rate 78 per minute. He is afebrile. Examination of the heart S1, S2. Examination of the lungs, bilateral breath sounds are heard. Abdomen is soft, nontender. Examination of lower extremities shows edema 2+ bilaterally. FAMILY SERVICES ASSISTANT exam grossly intact. LABS: Hemoglobin 12.3 g/dL. BMP is not available from today. Potassium was 6.0 on 09/16/2020. ASSESSMENT: 1. Acute kidney injury secondary to vancomycin toxicity, ATN, currently nonoliguric, started on hemodialysis yesterday secondary to volume overload, hyperkalemia, and mild uremic symptoms. The patient will be dialyzed again today. We will hold off on treatment tomorrow and plan for a treatment again on 09/19/2020. Continue to monitor for recovery of renal function. We will check labs again in a.m. 2. Volume overload, continue with IV Lasix. We will plan for about 1 L of ultrafiltration today with dialysis. 3. Left 2nd toe osteomyelitis, status post amputation. 4. Urine retention, currently with indwelling Jarquin catheter. PLAN: Hemodialysis today and will plan for a treatment again on 09/19/2020. Check labs tomorrow. MMODL / IJN: [id number] /
[2020-09-17 20:42] LABS: Glucose,Whole Blood 112 mg/dL (75-99)
[2020-09-17 20:55] LABS: African American GFR (CKD) 15.5 (60.0-200.0); Anion Gap 13.5 mmol/L (4.00-12.00); BUN/Creat Ratio 7.45 Ratio (12.00-20.00); Calcium 8.1 mg/dL (8.7-10.3); Carbon Dioxide 22.5 mmol/L (21.6-31.8); Non-African American GFR(CKD) 13.4 (60.0-200.0); Potassium 5.2 mmol/L (3.5-5.5)
[2020-09-17] MEDS: GABAPENTIN 100 MG CAP PO SCH (21:52)
[2020-09-17] MEDS: traZODone HCL 100 MG TAB PO SCH (21:52)
[2020-09-17] MEDS: ZIPRASIDONE 40 MG CAP PO SCH (21:52)
[2020-09-18] MEDS: Semaglutide [Rybelsus] 3 MG Tablet PO SCH (07:05)
[2020-09-18] MEDS: HYDROcodone/APAP 10-325MG 1 EACH TAB PO PRN ×2 (07:24→18:33)
[2020-09-18 07:27] LABS: Glucose,Whole Blood 70 mg/dL (75-99)
[2020-09-18] MEDS: LACTOBACILLUS ACIDOPH & BULGAR 1 EACH PACKET PO SCH ×3 (07:35→21:59)
[2020-09-18] MEDS: HEPARIN SODIUM,PORCINE/PF 5,000 UNIT/0.5 ML SYRINGE SQ SCH ×2 (07:37→21:42)
[2020-09-18] MEDS: PANTOPRAZOLE 40 MG TABLET PO SCH (07:37)
[2020-09-18] MEDS: FUROSEMIDE 10 MG/ML 10 ML VIAL IV SCH (07:37)
[2020-09-18] MEDS: FAMOTIDINE 20 MG TAB PO SCH (07:37)
[2020-09-18] MEDS: busPIRone HCl 10 MG TAB PO SCH ×2 (07:38→21:35)
[2020-09-18] MEDS: hydrOXYzine pamoate 25 MG CAP PO SCH ×2 (07:38→21:36)
[2020-09-18] MEDS: amLODIPine 5 MG TAB PO SCH (07:38)
[2020-09-18] MEDS: GABAPENTIN 100 MG CAP PO SCH ×2 (07:39→21:36)
[2020-09-18] MEDS: AMPICILLIN-SULBACTAM 3 GM in SODIUM CHLORIDE 0.9% 100 ML IVPB SCH (07:39)
[2020-09-18] MEDS: TAMSULOSIN 0.4 MG CAP.ER.24H PO SCH (07:39)
[2020-09-18] MEDS: DULoxetine HCL 60 MG CAPSULE.DR PO SCH ×2 (07:39→21:36)
[2020-09-18 07:46] LABS: Glucose,Whole Blood 62 mg/dL (75-99)
[2020-09-18 08:10] LABS: Glucose,Whole Blood 75 mg/dL (75-99)
[2020-09-18] MEDS: INSULIN ASPART (NovoLOG) 100 UNIT/ML VIAL SQ SCH ×7 (08:46→22:00)
[2020-09-18] MEDS ORDERED: INSULIN DETEMIR (LEVEMIR) 100 UNIT/ML SYR SQ ONE (09:00)
[2020-09-18] MEDS: INSULIN DETEMIR (LEVEMIR) 100 UNIT/ML SYR SQ SCH ×2 (09:03→21:38)
--- NOTE | 2020-09-18 11:19 | CDI ---
Documentation Clarification Form Date: 09/18/2020 11:02:04 AM From: Kathy Licea RN, CCDS Admit Date: 09/06/2020 01:29:00 PM Patient Name: Maxwell Villarreal Visit Number: [id number] Discharge Date: ATTENTION: The Clinical Documentation Specialists (CDI) and [facility] Coding Staff appreciate your assistance in clarifying documentation. Please respond to the clarification below the line at the bottom and electronically sign. The CDI & [facility] Coding staff will review the response and follow-up if needed. Please note: Queries are made part of the Legal Health Record. If you have any questions, please contact the author of this message via ITS. Dr. Abel Patel The final diagnosis of the pathology report states Left foot 2ndt toe amputation: Ulcer with necrosis, acute inflammation, subcutaneous abscess and fibrosis. Underlying bone with secondary acute osteomyelitis. Coding guidelines do not allow coding professionals to code based on pathology results; therefore, clarification is requested. History/risk factors: Diabetes Mellitus, hyperlipidemia, Hypertension Clinical Indicators: 49-year-old male present to ED with Diabetic foot discoloration. He has been treated with his Workforce Planner regarding a chronic wound at the base of the first digit left foot. he developed increase pain, erythema and drainage from the site. Treatment: Amputation left foot 2nd toe Unasyn 3 GM IVPB DAILY Vancomycin 2,250 MG IVPB Q 12 HRS 09/06-09/08 (PTD) Zosyn 3.375 GM IVPB Q 8 HRS 09/06- Please clarify if you agree with the pathology report diagnosis of left foot 2nd toe underlying bone with secondary acute osteomyelitis. [ ] Yes [ ] No [ ] Other (please specify) [ ] Unable to determine (Template Last Revised: April 2020) Yes MTDD
[2020-09-18 11:27] LABS: Glucose,Whole Blood 161 mg/dL (75-99)
[2020-09-18 12:23] LABS: Basophils # (A) 0.11 X 10*3/uL (0.00-0.10); Basophils % (A) 0.8 %; Eosinophils % (A) 6.1 %; HCT 41.2 % (39.6-50.0); HGB 12.8 g/dL (13.0-17.0); Lymphocytes # (A) 3.31 X 10*3/uL (0.90-5.00); Lymphocytes % (A) 25.4 %; MCH 30.3 pg (27.0-32.0); MCHC 31.1 g/dL (32.0-37.0); MCV 97.4 fL (80.0-97.0); Mean Platelet Volume 11.3 fL (9.5-12.2); Monocytes # (A) 1.19 X 10*3/uL (0.20-1.00); Monocytes % (A) 9.1 %; Neutrophils # (A) 7.44 X 10*3/uL (1.80-7.70); Neutrophils % (A) 57.1 %; Platelet Count 280 X 10*3/uL (140-440); RBC 4.23 X 10*6/uL (4.40-5.60); RDW 14.4 % (11.5-14.5); WBC 13.04 X 10*3/uL (4.50-10.00)
--- NOTE | 2020-09-18 12:42 | P.PN ---
Subjective Progress Note Date: 09/18/20 This is a 49-year-old gentleman admitted with a left diabetic plantar foot wound, had been following with a head strength and conditioning coach, worsened. Reports history of prior surgery to the affected foot with resulting plate with 16 screws. Evaluated by vascular surgery, bone scan in progress. Scheduled for I&D and potentially amputation of first, possibly a second toes. Wound culture pending. Maintained on IV antibiotics of clindamycin and vancomycin. Renal function stable. Afebrile, WBC trending down, 16.4. Blood sugars better controlled. Denies chest pain, palpitations or shortness of breath. 09/08/2020 bone scan reported suspicious for osteomyelitis involving the second digit of the left lower, with likely underlying cellulitis. status post left second toe amputation, postop day #1, tolerated well. Pain controlled. Earlier this morning patient had gotten up to bathroom, with significant bleeding re ported from site. Pressure dressing applied, dressing and currently clean dry and intact, labs pending. Maintained on IV antibiotics daptomycin and Zosyn, and IV fluid hydration. Afebrile. 09/09/2020 maintained on IV antibiotics as per ID. Reported diarrhea, suspect antibiotic related. Lactinex added to med regimen. Hemoglobin stable. Reports throbbing of affected lower extremity. Afebrile, wound cultures pending. Creatinine jumped to 2.62 yesterday; patient had been on vancomycin initially. Maintained on IV fluid hydration. Repeat labs pending. Blood sugars elevated, ranging from 180s to 250s. 09/10/2020 maintained on IV antibiotics, creatinine continues to jump to 5.22, nephrology consulted.potassium 5.8 Developed increasing tremors, lithium level I.2, ammonia level less than 9. Neurology consulted. Noncompliant with consistent carb diet; staff reports family continues to bring him in a nondiabetic food/drink, package of combos sitting on his bedside table. Blood s ugars ranging 180s to 200. Afebrile. Pain had been controlled until he ambulated with PT. 09/11/2020 complains of urinary retention, bladder scanned for greater than 400, inability to place urinary catheter-3 attempts, renal function continues to worsen with creatinine up to 5.96. Afebrile, WBC 14.33. Blood sugars better controlled. Levemir increased yesterday, blood sugars better controlled. Hemoglobin 12.1, platelets 271. 09/14/2020 sitting up in chair. Denies chest pain, palpitations. Reports exertional shortness of breath. Tremors appear mildly improved. Complains of phantom pain. Reports he is unable to take Seroquel as it causes him restless leg syndrome. Scheduled for brain MRI this morning. Maintained on Unasyn, afebrile. Denies nausea or vomiting. Blood sugars controlled. Labs pending. 09/15/2020 reporting decreased appetite with nausea. renal function continues to worsen, creatinine 6.3. Potassium 5.9. Denies chest pain, palpitations or shortness of breath. 09/16/2020 right internal jugular temporary dialysis catheter placed yesterday. Tolerated procedure well. BUN 44, creatinine 5.9, potassium 6. Scheduled for first hemodialysis session this morning. Denies chest pain, palpitations or shortness of breath. Maintained on Unasyn. Left foot pain controlled. Reports he is afraid. Afebrile, WBC trending down. 09/17/2020 labs pending. Scheduled for another session of hemodialysis today. Denies nausea or vomiting. Denies abdominal pain. Maintained on IV antibiotics as per ID. Afebrile. Pain controlled. 09/18/2020 Maintained on IV antibiotics as per ID. renal function improving with hemodialysis. Good urine output. Labs pending. Feels better.Hemodialysis scheduled for tomorrow. Complains of surgical site pain-reports phantom pain. Blood sugars in the 70s this morning. Denies chest pain, palpitations or shortness of breath. Mentation,tremors improved. Objective - Vital Signs Vital signs: Vital Signs Temp 98.2 F 09/18/20 07:54 Pulse 73 09/18/20 07:54 Resp 18 09/18/20 07:54 BP 163/98 09/18/20 07:54 Pulse Ox 93 L 09/18/20 07:54 Intake & Output 09/17/20 09/18/20 09/18/20 18:59 06:59 18:59 Intake Total 1620 Output Total 5800 2100 Balance -4179 -2099 Weight 159.4 kg Intake: Oral 1620 Output: Urine 4800 2100 Hemodialysis 1000 Other: Voiding Method Indwelling Catheter Indwelling Catheter Indwelling Catheter - Exam PHYSICAL EXAM: VITAL SIGNS: As above GENERAL: Alert and oriented 3, sitting up in chair, no acute distress. HEENT: Conjunctivae normal. eyes normal. NECK: No JVD. No thyroid enlargement. No LNs. Temporary hemodialysis cath dressing clean dry and intact. CARDIOVASCULAR: S1, S2 regular. No murmur. RESPIRATION: Breath sounds diminished in the bases. No rhonchi or crackles. ABDOMEN: Soft, nondistended, nontender . No guarding. no masses palpable.positive Bowel sounds. LEGS: Positive bilateral lower extremity edema, left foot dressing clean dry and intact,palpable diminished DP pulse NERVOUS SYSTEM: Cranial N 2-12 grossly normal. Moves all 4 limbs. No focal deficits.Strength and sensation grossly intact. Skin: Warm and dry, no rash. - Labs CBC & Chem 7: 09/18/20 05:42 09/17/20 06:26 Labs: Abnormal Lab Results - Last 24 Hours (Table) 09/14/20 09/17/20 09/17/20 Range/Units 16:39 06:26 06:26 WBC 12.42 H (4.50-10.00) X 10*3/uL RBC 4.18 L (4.40-5.60) X 10*6/uL Hgb 12.3 L (13.0-17.0) g/dL MCHC 30.8 L (32.0-37.0) g/dL Immature Gran # 0.23 H (0.00-0.04) X 10*3/uL Monocytes # 1.19 H (0.20-1.00) X 10*3/uL Eosinophils # 0.86 H (0.04-0.35) X 10*3/uL Anion Gap 13.50 H (4.00-12.00) mmol/L BUN 35.0 H (9.0-27.0) mg/dL Creatinine 4.7 H (0.6-1.5) mg/dL Est GFR (CKD-EPI)AfAm 15.5 L (60.0-200.0) Est GFR (CKD-EPI)NonAf 13.4 L (60.0-200.0) BUN/Creatinine Ratio 7.45 L (12.00-20.00) Ratio POC Glucose (mg/dL) (75-99) mg/dL Calcium 8.1 L (8.7-10.3) mg/dL Gabapentin 20.9 H (2.0-12.0) ug/mL 09/17/20 09/17/20 09/17/20 Range/Units 11:23 16:30 20:41 WBC (4.50-10.00) X 10*3/uL RBC (4.40-5.60) X 10*6/uL Hgb (13.0-17.0) g/dL MCHC (32.0-37.0) g/dL Immature Gran # (0.00-0.04) X 10*3/uL Monocytes # (0.20-1.00) X 10*3/uL Eosinophils # (0.04-0.35) X 10*3/uL Anion Gap (4.00-12.00) mmol/L BUN (9.0-27.0) mg/dL Creatinine (0.6-1.5) mg/dL Est GFR (CKD-EPI)AfAm (60.0-200.0) Est GFR (CKD-EPI)NonAf (60.0-200.0) BUN/Creatinine Ratio (12.00-20.00) Ratio POC Glucose (mg/dL) 149 H 136 H 112 H (75-99) mg/dL Calcium (8.7-10.3) mg/dL Gabapentin (2.0-12.0) ug/mL 09/18/20 09/18/20 Range/Units 07:25 07:45 WBC (4.50-10.00) X 10*3/uL RBC (4.40-5.60) X 10*6/uL Hgb (13.0-17.0) g/dL MCHC (32.0-37.0) g/dL Immature Gran # (0.00-0.04) X 10*3/uL Monocytes # (0.20-1.00) X 10*3/uL Eosinophils # (0.04-0.35) X 10*3/uL Anion Gap (4.00-12.00) mmol/L BUN (9.0-27.0) mg/dL Creatinine (0.6-1.5) mg/dL Est GFR (CKD-EPI)AfAm (60.0-200.0) Est GFR (CKD-EPI)NonAf (60.0-200.0) BUN/Creatinine Ratio (12.00-20.00) Ratio POC Glucose (mg/dL) 70 L 62 L (75-99) mg/dL Calcium (8.7-10.3) mg/dL Gabapentin (2.0-12.0) ug/mL Assessment and Plan Assessment: Possible sepsis, present on admission related to Acute Diabetic wound of left foot, failed outpatient treatment Osteomyelitis of left foot, second digit status post bone scan, status post amputation of left second toe. Left second toe acute osteomyelitis per pathology. Acute renal failure, related to ATN secondary to vancomycin, nsaids, urinary retention, worsening. Hemodialysis initiated. Hyperkalemia secondary to the above Metabolic acidosis secondary to the above Urinary retention, status post Jarquin catheter placement Tremors, lithium level high end of therapeutic, possible but doubt seizures, possibly medication related, suspect metablic as per neurology. History of prior left foot surgery with reported plate and screws Diabetes mellitus type 2, hyperglycemic, hemoglobin A1c 7.9. Hypertension Hyperlipidemia Obstructive sleep apnea Peripheral neuropathy PTSD, bipolar, depression, anxiety History of cocaine, marijuana, opiates, prescription drug abuse, Morbid obesity, BMI 50.2 Plan: Continue on current medication regime ,monitoring and symptomatic treatment. Labs pending. IV antibiotics per ID. Close monitoring of renal function with repeat labs ordered for a.m. hemodialysis tomorrow as per nephrology. The impression and plan of care has been dictated as directed. : I performed a history and examination of this patient, discussed the same with the dictator. I agree with the dictator's note ,documented as a scribe. Any additional findings or plans will be noted.
[2020-09-18 13:44] LABS: Anion Gap 12.5 mmol/L (4.00-12.00); BUN/Creat Ratio 8.68 Ratio (12.00-20.00); Calcium 8.7 mg/dL (8.7-10.3); Carbon Dioxide 28.5 mmol/L (21.6-31.8); Non-African American GFR(CKD) 17.3 (60.0-200.0); Potassium 5.2 mmol/L (3.5-5.5)
[2020-09-18 16:31] LABS: Glucose,Whole Blood 146 mg/dL (75-99)
--- NOTE | 2020-09-18 17:24 | PN ---
PROGRESS NOTE DATE OF SERVICE: 09/18/2020 REASON FOR FOLLOWUP: Left second toe diabetic foot infection. INTERVAL HISTORY: Patient is afebrile. The patient is feeling better. Breathing comfortably. Denies any chest pain, shortness of breath. No abdominal pain. Pain to the left foot is currently controlled. PHYSICAL EXAMINATION: Blood pressure 137/86, pulse of 80, temp 98.4, he is 95% on room air. General description is a middle-aged male lying in bed in no distress. Respiratory system: Unlabored breathing, clear to auscultation anteriorly. Heart S1, S2. Regular rate and rhythm. Abdomen soft, no tenderness. Left foot is currently dressed up. No obvious drainage on the dressing. LABORATORY DATA: Hemoglobin 12.3, white count 13.54, BUN 33, creatinine 3.8. DIAGNOSTIC IMPRESSION/PLAN: Patient with left second toe diabetic foot infection status post amputation of the left second toe. Culture has been mostly anaerobes. The patient is covered with Unasyn. Kidney function is slowly improving. Continue supportive care. MMODL / IJN: [id number] /
--- NOTE | 2020-09-18 20:18 | PN ---
PROGRESS NOTE Patient is seen for followup for acute kidney injury secondary to vancomycin toxicity and acute tubular necrosis. The patient is nonoliguric with good urine output. He had about 6 L of urine output. The patient was started on dialysis secondary to volume overload and symptoms of uremia. The patient was started on dialysis on 09/17/2020. He has had two treatments and will be scheduled for his third treatment tomorrow following which we will hold dialysis and monitor for recovery of renal function. PHYSICAL EXAMINATION: On examination today, blood pressure is 153/98, heart rate 73 per minute, he is afebrile. Examination of the heart S1, S2. Examination of the lungs, bilateral breath sounds are heard. Abdomen is soft, nontender, obese. Examination of lower extremities shows edema 2+ bilaterally. LEASING AGENT exam grossly intact. LABS: Labs from today show sodium 141, potassium 5.2, BUN of 33, serum creatinine 3.8, hemoglobin 12.8 g/dL. ASSESSMENT: 1. Acute kidney injury secondary to vancomycin toxicity, nonoliguric with increased urine output. Urine output documented at about 6 L for 24 hours. Patient is maintained on IV Lasix. His creatinine is significantly decreased to about 3.8, and given the increased urine output, we will hold off on dialysis tomorrow and monitor labs. 2. Volume overload, currently improving. 3. Uremia, currently much improved. 4. Hyperkalemia, improved post dialysis. 5. Osteomyelitis of left second toe status post amputation. 6. Urine retention currently with indwelling Jarquin catheter. 7. Volume overload, now improving. PLAN: Possible dialysis in a.m. However, if the serum creatinine is lower we will hold dialysis tomorrow and continue to monitor for recovery of renal function. Lasix dose will also be decreased. Continue to avoid nephrotoxic agents and repeat labs in a.m. MMODL / IJN: [id number] /
[2020-09-18 20:40] LABS: Glucose,Whole Blood 152 mg/dL (75-99)
[2020-09-18] MEDS: traZODone HCL 100 MG TAB PO SCH (21:38)
[2020-09-18] MEDS: ZIPRASIDONE 40 MG CAP PO SCH (21:38)
[2020-09-19] MEDS: HYDROcodone/APAP 10-325MG 1 EACH TAB PO PRN ×3 (06:08→19:55)
[2020-09-19 06:50] LABS: Glucose,Whole Blood 119 mg/dL (75-99)
[2020-09-19] MEDS: INSULIN ASPART (NovoLOG) 100 UNIT/ML VIAL SQ SCH ×7 (07:32→22:12)
[2020-09-19] MEDS: Semaglutide [Rybelsus] 3 MG Tablet PO SCH (07:34)
[2020-09-19] MEDS: LACTOBACILLUS ACIDOPH & BULGAR 1 EACH PACKET PO SCH ×3 (08:17→19:56)
[2020-09-19] MEDS: TAMSULOSIN 0.4 MG CAP.ER.24H PO SCH (08:17)
[2020-09-19] MEDS: DULoxetine HCL 60 MG CAPSULE.DR PO SCH ×2 (08:17→19:56)
[2020-09-19] MEDS: hydrOXYzine pamoate 25 MG CAP PO SCH ×2 (08:17→19:56)
[2020-09-19] MEDS: GABAPENTIN 100 MG CAP PO SCH ×2 (08:17→19:56)
[2020-09-19] MEDS: INSULIN DETEMIR (LEVEMIR) 100 UNIT/ML SYR SQ SCH ×2 (08:17→22:12)
[2020-09-19] MEDS: PANTOPRAZOLE 40 MG TABLET PO SCH (08:18)
[2020-09-19] MEDS: amLODIPine 5 MG TAB PO SCH (08:18)
[2020-09-19] MEDS: FAMOTIDINE 20 MG TAB PO SCH (08:18)
[2020-09-19] MEDS: AMPICILLIN-SULBACTAM 3 GM in SODIUM CHLORIDE 0.9% 100 ML IVPB SCH (08:19)
[2020-09-19] MEDS: HEPARIN SODIUM,PORCINE/PF 5,000 UNIT/0.5 ML SYRINGE SQ SCH ×2 (08:19→19:57)
[2020-09-19] MEDS: busPIRone HCl 10 MG TAB PO SCH ×2 (08:19→19:56)
[2020-09-19] MEDS: FUROSEMIDE 10 MG/ML 10 ML VIAL IV SCH (08:31)
[2020-09-19 10:32] LABS: African American GFR (CKD) 21 (>60 ml/min/1.73 sqM); Anion Gap 11 mmol/L; Blood Urea Nitrogen 40 mg/dL (9-20); Calcium 9.4 mg/dL (8.4-10.2); Carbon Dioxide 32 mmol/L (22-30); Chloride 96 mmol/L (98-107); Glucose 226 mg/dL (74-99); Non-African American GFR(CKD) 18 (>60 ml/min/1.73 sqM); Potassium 4.9 mmol/L (3.5-5.1); Sodium 139 mmol/L (137-145)
[2020-09-19 11:43] LABS: Glucose,Whole Blood 204 mg/dL (75-99)
--- NOTE | 2020-09-19 15:16 | P.PN ---
Subjective Progress Note Date: 09/19/20 Follow-up for acute kidney injury needing dialysis. Heart around dialysis 09/17/2020. He had 2 treatments so far. Good urine output, 7 L in the last 24 hours. Objective - Vital Signs Vital signs: Vital Signs Temp 98.7 F 09/19/20 15:05 Pulse 90 09/19/20 15:05 Resp 17 09/19/20 15:05 BP 113/70 09/19/20 15:05 Pulse Ox 96 09/19/20 15:05 Intake & Output 09/18/20 09/19/20 09/19/20 18:59 06:59 18:59 Output Total 4750 2623 2650 Balance -8650 -2626 -2650 Weight 156.4 kg Output: Urine 4750 2625 2650 Stool 1 Other: Voiding Method Indwelling Catheter Indwelling Catheter Indwelling Catheter - Exam No acute distress S1-S2 heard Lungs clear Edema. - Labs CBC & Chem 7: 09/18/20 05:42 09/19/20 10:00 Labs: Abnormal Lab Results - Last 24 Hours (Table) 09/18/20 09/18/20 09/19/20 Range/Units 16:30 20:39 06:49 Chloride (98-107) mmol/L Carbon Dioxide (22-30) mmol/L BUN (9-20) mg/dL Creatinine (0.66-1.25) mg/dL Glucose (74-99) mg/dL POC Glucose (mg/dL) 146 H 152 H 119 H (75-99) mg/dL 09/19/20 09/19/20 Range/Units 10:00 11:42 Chloride 96 L (98-107) mmol/L Carbon Dioxide 32 H (22-30) mmol/L BUN 40 H (9-20) mg/dL Creatinine 3.63 H (0.66-1.25) mg/dL Glucose 226 H (74-99) mg/dL POC Glucose (mg/dL) 204 H (75-99) mg/dL Assessment and Plan Assessment: #1 acute kidney injury secondary to vancomycin toxicity requiring hemodialysis. Last dialysis was yesterday. #2 volume overload #3 hyperkalemia improved with dialysis #4 left toe osteomyelitis status post amputation #5 metabolic alkalosis Plan: #1 hold hemodialysis today with good urine output. Reevaluate on Brian based on the labs. #2 continue with diuretics. #3 avoid nephrotoxic agents and hypotensive episodes
[2020-09-19 16:38] LABS: Glucose,Whole Blood 187 mg/dL (75-99)
--- NOTE | 2020-09-19 19:18 | PN ---
PROGRESS NOTE DATE OF SERVICE: 09/19/2020. REASON FOR FOLLOWUP: Left second toe diabetic foot infection. INTERVAL HISTORY: Patient is afebrile. The patient is feeling better. Breathing comfortably. Denies having any chest pain, shortness of breath or cough. No abdominal pain or any worsening pain in the right toe amputation site. PHYSICAL EXAMINATION: Blood pressure 113/70 with a pulse of 90, temperature 98.7. He is 96% on room air. General description is a middle-aged male up in the room in no distress. Respiratory system: Unlabored breathing, clear to auscultation anteriorly. Heart S1, S2. Regular rate and rhythm. Abdomen soft, no tenderness. Left foot is currently dressed up. No obvious drainage on the dressing. LABS: BUN of 40, creatinine 3.63. DIAGNOSTIC IMPRESSION AND PLAN: Patient with left second toe diabetic foot infection, status post amputation, did have renal insufficiency. Kidney function slowly improving. The patient is covered with Unasyn to continue. Transition to oral antibiotic on discharge. Continue supportive care. MMODL / IJN: [id number] /
[2020-09-19] MEDS: traZODone HCL 100 MG TAB PO SCH (19:57)
[2020-09-19] MEDS: diphenhydrAMINE 2% CREAM 28.4 GM TUBE TOPICAL SCH (19:57)
[2020-09-19] MEDS: ZIPRASIDONE 40 MG CAP PO SCH (19:58)
[2020-09-19] MEDS: LORazepam 0.5 MG TAB PO PRN (20:02)
[2020-09-19 20:06] LABS: Glucose,Whole Blood 199 mg/dL (75-99)
[2020-09-19] MEDS: ONDANSETRON 4 MG/2 ML VIAL IVP PRN (22:11)
--- NOTE | 2020-09-19 23:08 | P.PN ---
Subjective covering over the weekend This is a pleasant 18 years old male with past medical history of diabetes mellitus, hypertension, hyperlipidemia, obesity, sleep apnea on CPAP/BiPAP, depression/bipolar/anxiety, and PTSD. Was admitted for diabetic foot ulcers and developed acute kidney injury. Today he is awake and alert, is complaining of from tremor in his both hands. Pain is controlled. He is hemodynamically stable Labs showing leukocytosis of 14.3 K. Elevated ESR of 46 and C-reactive protein of 8.8. Creatinine is elevated at 6.1. Glucose is controlled. Patient currently is on Unasyn, normal sinus 75 mL/h, 09/13/2020 Patient is awake and alert, is complaining from exertional dyspnea but this is not new but Chronic for example if he do shoelaces or trying to reach his phone he got short of breath. 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 His WBCs 15 care compared to 14 K yesterday. He is currently on Unasyn and normal saline His wound culture is showing gram-negative bacilli 2 kinds, also today showed gram-positive cocci. Lisinopril and NSAIDs were discontinued also vancomycin and lithium were discontinued for his kidney injury. Outsole Compressor on the case 09/19/2020 Patient is fully awake, complaining of from some itching and they right upper chest hemodialysis catheter site and some frontal feeling in the left foot infection site. He is hemodynamically stable Nephrology on the case who recommended to hold hemodialysis today for good urine output Continue with Unasyn for his second toe diabetic foot infection. ID team on the case He is on gabapentin 100 mg twice daily per neurologist which might increase in the future as kidney function improves Objective - Vital Signs Vital signs: Vital Signs Temp 97.8 F 09/19/20 20:00 Pulse 88 09/19/20 20:00 Resp 19 09/19/20 20:00 BP 149/96 09/19/20 20:00 Pulse Ox 95 09/19/20 20:00 Intake & Output 09/19/20 09/19/20 09/20/20 06:59 18:59 06:59 Output Total 2621 6780 Balance -2626 -3750 Weight 156.4 kg Output: Urine 2626 3750 Stool 1 Other: Voiding Method Indwelling Catheter Indwelling Catheter - Exam -GENERAL: The patient is alert and oriented x3, not in any acute distress. Morbidly obese HEENT: Pupils are round and equally reacting to light. EOMI. No scleral icterus. No conjunctival pallor. Normocephalic, atraumatic. No pharyngeal erythema. No thyromegaly. CARDIOVASCULAR: S1 and S2 present. No murmurs, rubs, or gallops. PULMONARY: Chest is clear to auscultation, no wheezing or crackles. ABDOMEN: Soft, nontender, nondistended, normoactive bowel sounds. No palpable organomegaly. MUSCULOSKELETAL: No joint swelling or deformity. -EXTREMITIES: No cyanosis, clubbing, or pedal edema. Upper extremity tremor. Left foot wound is covered with a dressing NEUROLOGICAL: Gross neurological examination did not reveal any focal deficits. SKIN: No rashes. no petechiae. - Labs CBC & Chem 7: 09/18/20 05:42 09/19/20 10:00 Labs: Abnormal Lab Results - Last 24 Hours (Table) 09/19/20 09/19/20 09/19/20 Range/Units 06:49 10:00 11:42 Chloride 96 L (98-107) mmol/L Carbon Dioxide 32 H (22-30) mmol/L BUN 40 H (9-20) mg/dL Creatinine 3.63 H (0.66-1.25) mg/dL Glucose 226 H (74-99) mg/dL POC Glucose (mg/dL) 119 H 204 H (75-99) mg/dL 09/19/20 09/19/20 Range/Units 16:37 20:05 Chloride (98-107) mmol/L Carbon Dioxide (22-30) mmol/L BUN (9-20) mg/dL Creatinine (0.66-1.25) mg/dL Glucose (74-99) mg/dL POC Glucose (mg/dL) 187 H 199 H (75-99) mg/dL Assessment and Plan Assessment: Diabetic left ulcer with osteomyelitis Acute kidney injury, on hemodialysis Urinary retention, improving Chronic tremor for 1 year with recent worsening over one month, suspected due to lithium and gabapentin may be contributing History of depression/bipolar/anxiety, and PTSD. No connective tissue Hypertension, uncontrolled Hyperlipidemia Diabetes mellitus Sleep apnea Morbid obesity with BMI of 50.2 Plan: This is a pleasant 49 this old male who presents with diabetic foot ulcer with possible osteomyelitis ,and tremor. Continue With Unasyn. Infectious disease team on the case Hold LISINOPRIL and NSAIDs and monitor kidney function and urine output. Outsole Compressor on the case. Hold hemodialysis today Continue Jarquin catheter Continue with gabapentin twice daily and increase in the future as patient kidney function improves Recommend pulmonary evaluation which can be done as an outpatient Continue with insulin and monitor her glucose.Labs and medication were reviewed.. Continue same treatment. Continue with symptomatic treatment. Resume home medication. Monitor lytes and vitals. DVT and GI prophylaxis. Further recommendationsas per clinical course of the patient DVT prophylaxis: Subcutaneous heparin GI Prophylaxis: Pepcid PT/OT: Recommended home care which is ordered Prognosis is guarded
[2020-09-20 06:48] LABS: Glucose,Whole Blood 101 mg/dL (75-99)
[2020-09-20] MEDS: Semaglutide [Rybelsus] 3 MG Tablet PO SCH (07:56)
[2020-09-20] MEDS: INSULIN ASPART (NovoLOG) 100 UNIT/ML VIAL SQ SCH ×7 (07:56→21:07)
[2020-09-20] MEDS: HYDROcodone/APAP 10-325MG 1 EACH TAB PO PRN ×2 (08:08→21:06)
[2020-09-20] MEDS: LACTOBACILLUS ACIDOPH & BULGAR 1 EACH PACKET PO SCH ×3 (08:08→21:08)
[2020-09-20] MEDS: TAMSULOSIN 0.4 MG CAP.ER.24H PO SCH (08:08)
[2020-09-20] MEDS: GABAPENTIN 100 MG CAP PO SCH ×2 (08:08→21:07)
[2020-09-20] MEDS: PANTOPRAZOLE 40 MG TABLET PO SCH (08:08)
[2020-09-20] MEDS: FUROSEMIDE 10 MG/ML 10 ML VIAL IV SCH (08:08)
[2020-09-20] MEDS: amLODIPine 5 MG TAB PO SCH (08:09)
[2020-09-20] MEDS: hydrOXYzine pamoate 25 MG CAP PO SCH ×2 (08:09→21:07)
[2020-09-20] MEDS: busPIRone HCl 10 MG TAB PO SCH ×2 (08:09→21:07)
[2020-09-20] MEDS: DULoxetine HCL 60 MG CAPSULE.DR PO SCH ×2 (08:09→21:07)
[2020-09-20] MEDS: AMPICILLIN-SULBACTAM 3 GM in SODIUM CHLORIDE 0.9% 100 ML IVPB SCH (08:09)
[2020-09-20] MEDS: INSULIN DETEMIR (LEVEMIR) 100 UNIT/ML SYR SQ SCH ×2 (08:10→21:08)
[2020-09-20] MEDS: HEPARIN SODIUM,PORCINE/PF 5,000 UNIT/0.5 ML SYRINGE SQ SCH ×2 (08:10→21:08)
[2020-09-20] MEDS: diphenhydrAMINE 2% CREAM 28.4 GM TUBE TOPICAL SCH ×2 (08:10→21:08)
[2020-09-20 11:43] LABS: Glucose,Whole Blood 246 mg/dL (75-99)
[2020-09-20] MEDS: LORazepam 0.5 MG TAB PO PRN (12:05)
--- NOTE | 2020-09-20 16:06 | P.PN ---
Subjective Progress Note Date: 09/20/20 Follow-up for acute kidney injury needing dialysis. Last dialysis 09/17/2020. He had 2 treatments so far. Good urine output, 4.7 L in the last 24 hours. Objective - Vital Signs Vital signs: Vital Signs Temp 98.1 F 09/20/20 14:25 Pulse 86 09/20/20 14:25 Resp 18 09/20/20 14:25 BP 120/83 09/20/20 14:25 Pulse Ox 95 09/20/20 14:25 Intake & Output 09/19/20 09/20/20 09/20/20 18:59 06:59 18:59 Intake Total 1620 Output Total 3750 1000 1000 Balance -3750 -1000 620 Weight 153.5 kg Intake: Oral 1620 Output: Urine 3750 1000 1000 Other: Voiding Method Indwelling Catheter Indwelling Catheter - Exam No acute distress S1-S2 heard Lungs clear Edema. - Labs CBC & Chem 7: 09/18/20 05:42 09/19/20 10:00 Labs: Abnormal Lab Results - Last 24 Hours (Table) 09/19/20 09/19/20 09/20/20 Range/Units 16:37 20:05 06:46 POC Glucose (mg/dL) 187 H 199 H 101 H (75-99) mg/dL 09/20/20 Range/Units 11:41 POC Glucose (mg/dL) 246 H (75-99) mg/dL Assessment and Plan Assessment: #1 acute kidney injury secondary to vancomycin toxicity requiring hemodialysis. Last dialysis was on 09/18/2020 #2 volume overload #3 hyperkalemia improved with dialysis #4 left toe osteomyelitis status post amputation #5 metabolic alkalosis Plan: #1 Monitor renal function closely. Check labs in the morning plan hemodialysis based on the labs. If renal function continues to improve discontinue Charli catheter. #2 continue with diuretics. #3 avoid nephrotoxic agents and hypotensive episodes
[2020-09-20 17:22] LABS: Glucose,Whole Blood 214 mg/dL (75-99)
--- NOTE | 2020-09-20 19:28 | PN ---
PROGRESS NOTE DATE OF SERVICE: 09/20/2020 REASON FOR FOLLOWUP: Diabetic foot infection with wet gangrene. INTERVAL HISTORY: The patient is afebrile. The patient is currently breathing comfortably. The patient denies having any chest pain. No shortness of breath or cough. No abdominal pain or diarrhea. PHYSICAL EXAMINATION: Blood pressure 120/83 with a pulse of 83, temperature 98.1. He is 95% on room air. General description is a middle-aged male up in the chair in no distress. Respiratory system: Unlabored breathing, clear to auscultation anteriorly. Heart S1, S2. Regular rate and rhythm. Abdomen: Soft, no tenderness. Left foot is currently dressed up. No obvious drainage on the dressing. DIAGNOSTIC IMPRESSION AND PLAN: Patient with left second toe diabetic foot infection with gangrene status post amputation. . Patient is covered with Unasyn. Waiting for the kidney function to improve. Continue supportive care. Family at the bedside. Questions were answered. MMODL / IJN: [id number] /
[2020-09-20 20:23] LABS: Glucose,Whole Blood 172 mg/dL (75-99)
[2020-09-20] MEDS: ZIPRASIDONE 40 MG CAP PO SCH (21:07)
[2020-09-20] MEDS: traZODone HCL 100 MG TAB PO SCH (21:07)
--- NOTE | 2020-09-20 21:25 | P.PN ---
Subjective covering over the weekend This is a pleasant 18 years old male with past medical history of diabetes mellitus, hypertension, hyperlipidemia, obesity, sleep apnea on CPAP/BiPAP, depression/bipolar/anxiety, and PTSD. Was admitted for diabetic foot ulcers and developed acute kidney injury. Today he is awake and alert, is complaining of from tremor in his both hands. Pain is controlled. He is hemodynamically stable Labs showing leukocytosis of 14.3 K. Elevated ESR of 46 and C-reactive protein of 8.8. Creatinine is elevated at 6.1. Glucose is controlled. Patient currently is on Unasyn, normal sinus 75 mL/h, 09/13/2020 Patient is awake and alert, is complaining from exertional dyspnea but this is not new but Chronic for example if he do shoelaces or trying to reach his phone he got short of breath. Probably patient may have obesity hypoventilation syndrome and he might benefit from pulmonary evaluation which can be done as an outpatient contact information is provided for the patient charge hand psych on follow-up upon discharge I then that he is hemodynamically stable, blood pressure is slightly elevated 154/83, Norvasc is added Creatinine today is 6.3 compared to 6.1 yesterday, to have leukocytosis. His WBCs 15 care compared to 14 K yesterday. He is currently on Unasyn and normal saline His wound culture is showing gram-negative bacilli 2 kinds, also today showed gram-positive cocci. Lisinopril and NSAIDs were discontinued also vancomycin and lithium were discontinued for his kidney injury. [facility] on the case 09/19/2020 Patient is fully awake, complaining of from some itching and they right upper chest hemodialysis catheter site and some frontal feeling in the left foot infection site. He is hemodynamically stable Nephrology on the case who recommended to hold hemodialysis today for good urine output Continue with Unasyn for his second toe diabetic foot infection. ID team on the case He is on gabapentin 100 mg twice daily per neurologist which might increase in the future as kidney function improves 09/20/2020 Patient age and in the right upper chest is improving Vital signs stable. No labs today we'll check The Morning No Hemodialysis Currently Her [facility] As Kidney Function Is Improving, Further Tears His Depending on the Labs. Patient Is Continued to Be Followed by ID Team and Currently Discolored with Unasyn. He Is Complaining of from Some Pain in His Left Foot Objective - Vital Signs Vital signs: Vital Signs Temp 98.1 F 09/20/20 14:25 Pulse 86 09/20/20 14:25 Resp 18 09/20/20 14:25 BP 120/83 09/20/20 14:25 Pulse Ox 95 09/20/20 14:25 Intake & Output 09/19/20 09/20/20 09/20/20 18:59 06:59 18:59 Intake Total 1620 Output Total 3750 1000 1000 Balance -3750 -1000 620 Weight 153.5 kg Intake: Oral 1620 Output: Urine 3750 1000 1000 Other: Voiding Method Indwelling Catheter Indwelling Catheter - Exam -GENERAL: The patient is alert and oriented x3, not in any acute distress. Morbidly obese HEENT: Pupils are round and equally reacting to light. EOMI. No scleral icterus. No conjunctival pallor. Normocephalic, atraumatic. No pharyngeal erythema. No thyromegaly. CARDIOVASCULAR: S1 and S2 present. No murmurs, rubs, or gallops. PULMONARY: Chest is clear to auscultation, no wheezing or crackles. ABDOMEN: Soft, nontender, nondistended, normoactive bowel sounds. No palpable organomegaly. MUSCULOSKELETAL: No joint swelling or deformity. -EXTREMITIES: No cyanosis, clubbing, or pedal edema. Upper extremity tremor. Left foot wound is covered with a dressing NEUROLOGICAL: Gross neurological examination did not reveal any focal deficits. SKIN: No rashes. no petechiae. - Labs CBC & Chem 7: 09/18/20 05:42 09/19/20 10:00 Labs: Abnormal Lab Results - Last 24 Hours (Table) 09/19/20 09/20/20 09/20/20 Range/Units 20:05 06:46 11:41 POC Glucose (mg/dL) 199 H 101 H 246 H (75-99) mg/dL 09/20/20 Range/Units 17:21 POC Glucose (mg/dL) 214 H (75-99) mg/dL Assessment and Plan Assessment: Diabetic left ulcer with osteomyelitis Acute kidney injury, on hemodialysis Urinary retention, improving Chronic tremor for 1 year with recent worsening over one month, suspected due to lithium and gabapentin may be contributing History of depression/bipolar/anxiety, and PTSD. No connective tissue Hypertension, uncontrolled Hyperlipidemia Diabetes mellitus Sleep apnea Morbid obesity with BMI of 50.2 Plan: This is a pleasant 49 this old male who presents with diabetic foot ulcer with possible osteomyelitis ,and tremor. Continue With Unasyn. Infectious disease team on the case Hold LISINOPRIL and NSAIDs and monitor kidney function and urine output. [facility] on the case. Hold hemodialysis today Continue Jarquin catheter Continue with gabapentin twice daily and increase in the future as patient kidney function improves Recommend pulmonary evaluation which can be done as an outpatient Continue with insulin and monitor her glucose.Labs and medication were reviewed.. Continue same treatment. Continue with symptomatic treatment. Resume home medication. Monitor lytes and vitals. DVT and GI prophylaxis. Further recommendationsas per clinical course of the patient DVT prophylaxis: Subcutaneous heparin GI Prophylaxis: Pepcid PT/OT: Recommended home care which is ordered Prognosis is guarded
[2020-09-21] MEDS: ONDANSETRON 4 MG/2 ML VIAL IVP PRN ×2 (01:26→10:25)
[2020-09-21] MEDS: LORazepam 0.5 MG TAB PO PRN ×2 (01:26→21:37)
[2020-09-21 07:29] LABS: ALT 17 U/L (4-49); AST 29 U/L (17-59); African American GFR (CKD) 28 (>60 ml/min/1.73 sqM); Albumin 3.3 g/dL (3.5-5.0); Albumin/Globulin Ratio 0.9; Alkaline Phosphatase 89 U/L (38-126); Anion Gap 7 mmol/L; Blood Urea Nitrogen 44 mg/dL (9-20); Carbon Dioxide 33 mmol/L (22-30); Chloride 98 mmol/L (98-107); Globulin 3.7 g/dL; Glucose 167 mg/dL (74-99); Non-African American GFR(CKD) 25 (>60 ml/min/1.73 sqM); Potassium 4.5 mmol/L (3.5-5.1); Sodium 138 mmol/L (137-145); Total Bilirubin 0.3 mg/dL (0.2-1.3)
[2020-09-21 07:38] LABS: Glucose,Whole Blood 168 mg/dL (75-99)
[2020-09-21] MEDS: Semaglutide [Rybelsus] 3 MG Tablet PO SCH (08:22)
[2020-09-21] MEDS: FUROSEMIDE 10 MG/ML 10 ML VIAL IV SCH (08:32)
[2020-09-21] MEDS: PANTOPRAZOLE 40 MG TABLET PO SCH (08:32)
[2020-09-21] MEDS: hydrOXYzine pamoate 25 MG CAP PO SCH ×2 (08:32→21:33)
[2020-09-21] MEDS: TAMSULOSIN 0.4 MG CAP.ER.24H PO SCH (08:32)
[2020-09-21] MEDS: INSULIN DETEMIR (LEVEMIR) 100 UNIT/ML SYR SQ SCH ×2 (08:33→21:34)
[2020-09-21] MEDS: HEPARIN SODIUM,PORCINE/PF 5,000 UNIT/0.5 ML SYRINGE SQ SCH ×2 (08:33→21:34)
[2020-09-21] MEDS: HYDROcodone/APAP 10-325MG 1 EACH TAB PO PRN ×2 (08:33→19:34)
[2020-09-21] MEDS: amLODIPine 5 MG TAB PO SCH (08:33)
[2020-09-21] MEDS: DULoxetine HCL 60 MG CAPSULE.DR PO SCH ×2 (08:33→21:33)
[2020-09-21] MEDS: busPIRone HCl 10 MG TAB PO SCH ×2 (08:33→21:33)
[2020-09-21] MEDS: GABAPENTIN 100 MG CAP PO SCH ×2 (08:33→21:34)
[2020-09-21] MEDS: AMPICILLIN-SULBACTAM 3 GM in SODIUM CHLORIDE 0.9% 100 ML IVPB SCH ×2 (08:34→21:34)
[2020-09-21] MEDS: INSULIN ASPART (NovoLOG) 100 UNIT/ML VIAL SQ SCH ×7 (08:34→21:34)
[2020-09-21] MEDS: diphenhydrAMINE 2% CREAM 28.4 GM TUBE TOPICAL SCH ×2 (08:35→21:35)
[2020-09-21] MEDS: LACTOBACILLUS ACIDOPH & BULGAR 1 EACH PACKET PO SCH ×3 (08:35→21:35)
--- NOTE | 2020-09-21 10:57 | P.PN ---
Subjective Patient is seen in follow-up for acute kidney injury. Last hemodialysis was on 09/18/2020. Nonoliguric. Creatinine trending down. No chest pain or shortness of breath. Hemodynamically stable. Vital signs are stable. General: The patient appeared well nourished and normally developed. HEENT: Head exam is unremarkable. Neck is without jugular venous distension. LUNGS: Breath sounds decreased. HEART: Rate and Rhythm are regular. ABDOMEN: Soft, obese. EXTREMITITES: Trace edema. Objective - Vital Signs Vital signs: Vital Signs Temp 97.9 F 09/21/20 07:49 Pulse 94 09/21/20 07:49 Resp 18 09/21/20 07:49 BP 123/74 09/21/20 07:49 Pulse Ox 96 09/21/20 07:49 Intake & Output 09/20/20 09/21/20 09/21/20 18:59 06:59 18:59 Intake Total 1620 Output Total 2400 2500 1000 Balance -780 -2500 -1000 Weight 153 kg Intake: Oral 1620 Output: Urine 2400 2500 1000 Other: Voiding Method Indwelling Catheter - Labs CBC & Chem 7: 09/18/20 05:42 09/21/20 06:54 Labs: Abnormal Lab Results - Last 24 Hours (Table) 09/20/20 09/20/20 09/20/20 Range/Units 11:41 17:21 20:21 Carbon Dioxide (22-30) mmol/L BUN (9-20) mg/dL Creatinine (0.66-1.25) mg/dL Glucose (74-99) mg/dL POC Glucose (mg/dL) 246 H 214 H 172 H (75-99) mg/dL Albumin (3.5-5.0) g/dL 09/21/20 09/21/20 Range/Units 06:54 07:16 Carbon Dioxide 33 H (22-30) mmol/L BUN 44 H (9-20) mg/dL Creatinine 2.84 H (0.66-1.25) mg/dL Glucose 167 H (74-99) mg/dL POC Glucose (mg/dL) 168 H (75-99) mg/dL Albumin 3.3 L (3.5-5.0) g/dL Assessment and Plan Plan: Assessment: 1. Acute kidney injury secondary to ATN secondary to vancomycin toxicity and nonsteroidals. Baseline creatinine near 1 and started on hemodialysis this admission. Last hemodialysis was on 09/18/2020. Now creatinine is trending down and he is nonoliguric. 2. Left foot osteomyelitis status post amputation of the left second toe. 3. Metabolic acidosis secondary to acute kidney injury and IV fluids. Resolved. 4. Diabetes mellitus. 5. Urinary retention status post Jarquin catheter placement. Seen by urology. 6. Volume overload. Improved with diuresis. Plan: Maintain IV Lasix. Continue to hold hemodialysis. Will discontinue dialysis catheter in the next 1-2 days as long as creatinine trending down. Avoid nephrotoxins. Continue to monitor renal function and urine output.
[2020-09-21 11:54] LABS: Glucose,Whole Blood 210 mg/dL (75-99)
--- NOTE | 2020-09-21 12:50 | P.PN ---
Subjective covering over the weekend This is a pleasant 18 years old male with past medical history of diabetes mellitus, hypertension, hyperlipidemia, obesity, sleep apnea on CPAP/BiPAP, depression/bipolar/anxiety, and PTSD. Was admitted for diabetic foot ulcers and developed acute kidney injury. Today he is awake and alert, is complaining of from tremor in his both hands. Pain is controlled. He is hemodynamically stable Labs showing leukocytosis of 14.3 K. Elevated ESR of 46 and C-reactive protein of 8.8. Creatinine is elevated at 6.1. Glucose is controlled. Patient currently is on Unasyn, normal sinus 75 mL/h, 09/13/2020 Patient is awake and alert, is complaining from exertional dyspnea but this is not new but Chronic for example if he do shoelaces or trying to reach his phone he got short of breath. 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 His WBCs 15 care compared to 14 K yesterday. He is currently on Unasyn and normal saline His wound culture is showing gram-negative bacilli 2 kinds, also today showed gram-positive cocci. Lisinopril and NSAIDs were discontinued also vancomycin and lithium were discontinued for his kidney injury. [facility] [employer] on the case 09/19/2020 Patient is fully awake, complaining of from some itching and they right upper chest hemodialysis catheter site and some frontal feeling in the left foot infection site. He is hemodynamically stable Nephrology on the case who recommended to hold hemodialysis today for good urine output Continue with Unasyn for his second toe diabetic foot infection. ID team on the case He is on gabapentin 100 mg twice daily per neurologist which might increase in the future as kidney function improves 09/20/2020 Patient age and in the right upper chest is improving Vital signs stable. No labs today we'll check The Morning No Hemodialysis Currently Her [employer] As Kidney Function Is Improving, Further Tears His Depending on the Labs. Patient Is Continued to Be Followed by ID Team and Currently Discolored with Unasyn. He Is Complaining of from Some Pain in His Left Foot 09/21/2020 Patient clinically the same as yesterday, itching and the right upper chest catheter site is improving. His pain and only in his left foot, no left leg pain. He was complaining of from nausea this morning but no vomiting. Currently patient is been covered with Unasyn per ID team. Wound culture is noted Orthopedic team holding hemodialysis with improvement in his creatinine down to 2.8 today. His already on Lasix. Monitor labs in the morning Objective - Vital Signs Vital signs: Vital Signs Temp 97.9 F 09/21/20 07:49 Pulse 94 09/21/20 07:49 Resp 18 09/21/20 07:49 BP 123/74 09/21/20 07:49 Pulse Ox 96 09/21/20 07:49 Intake & Output 09/20/20 09/21/20 09/21/20 18:59 06:59 18:59 Intake Total 1620 Output Total 2400 2500 1000 Balance -780 -2500 -1000 Weight 153 kg Intake: Oral 1620 Output: Urine 2400 2500 1000 Other: Voiding Method Indwelling Catheter - Exam -GENERAL: The patient is alert and oriented x3, not in any acute distress. Morbidly obese HEENT: Pupils are round and equally reacting to light. EOMI. No scleral icterus. No conjunctival pallor. Normocephalic, atraumatic. No pharyngeal erythema. No thyromegaly. CARDIOVASCULAR: S1 and S2 present. No murmurs, rubs, or gallops. PULMONARY: Chest is clear to auscultation, no wheezing or crackles. ABDOMEN: Soft, nontender, nondistended, normoactive bowel sounds. No palpable organomegaly. MUSCULOSKELETAL: No joint swelling or deformity. -EXTREMITIES: No cyanosis, clubbing, or pedal edema. Upper extremity tremor. Left foot wound is covered with a dressing NEUROLOGICAL: Gross neurological examination did not reveal any focal deficits. SKIN: No rashes. no petechiae. - Labs CBC & Chem 7: 09/18/20 05:42 09/21/20 06:54 Labs: Abnormal Lab Results - Last 24 Hours (Table) 09/20/20 09/20/20 09/21/20 Range/Units 17:21 20:21 06:54 Carbon Dioxide 33 H (22-30) mmol/L BUN 44 H (9-20) mg/dL Creatinine 2.84 H (0.66-1.25) mg/dL Glucose 167 H (74-99) mg/dL POC Glucose (mg/dL) 214 H 172 H (75-99) mg/dL Albumin 3.3 L (3.5-5.0) g/dL 09/21/20 09/21/20 Range/Units 07:16 11:43 Carbon Dioxide (22-30) mmol/L BUN (9-20) mg/dL Creatinine (0.66-1.25) mg/dL Glucose (74-99) mg/dL POC Glucose (mg/dL) 168 H 210 H (75-99) mg/dL Albumin (3.5-5.0) g/dL Assessment and Plan Assessment: Diabetic left ulcer with osteomyelitis Acute kidney injury, on hemodialysis Urinary retention, improving Chronic tremor for 1 year with recent worsening over one month, suspected due to lithium and gabapentin may be contributing History of depression/bipolar/anxiety, and PTSD. No connective tissue Hypertension, uncontrolled Hyperlipidemia Diabetes mellitus Sleep apnea Morbid obesity with BMI of 50.2 Plan: This is a pleasant 49 this old male who presents with diabetic foot ulcer with possible osteomyelitis ,and tremor. Continue With Unasyn. Infectious disease team on the case Hold LISINOPRIL and NSAIDs and monitor kidney function and urine output. 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 Hold hemodialysis today Continue Jarquin catheter Continue with gabapentin twice daily and increase in the future as patient kidney function improves Recommend pulmonary evaluation which can be done as an outpatient Continue with insulin and monitor her glucose.Labs and medication were reviewed.. Continue same treatment. Continue with symptomatic treatment. Resume home medication. Monitor lytes and vitals. DVT and GI prophylaxis. Further recommendationsas per clinical course of the patient DVT prophylaxis: Subcutaneous heparin GI Prophylaxis: Pepcid PT/OT: Recommended home care which is ordered Prognosis is guarded
[2020-09-21 12:53] LABS: Basophils # (A) 0.16 X 10*3/uL (0.00-0.10); Basophils % (A) 1.1 %; Eosinophils # (A) 0.81 X 10*3/uL (0.04-0.35); Eosinophils % (A) 5.8 %; HGB 12.8 g/dL (13.0-17.0); Lymphocytes # (A) 3.86 X 10*3/uL (0.90-5.00); Lymphocytes % (A) 27.5 %; MCH 29.6 pg (27.0-32.0); MCHC 30.5 g/dL (32.0-37.0); MCV 97.2 fL (80.0-97.0); Mean Platelet Volume 11.3 fL (9.5-12.2); Monocytes # (A) 1.33 X 10*3/uL (0.20-1.00); Monocytes % (A) 9.5 %; Neutrophils # (A) 7.75 X 10*3/uL (1.80-7.70); Platelet Count 323 X 10*3/uL (140-440); RBC 4.32 X 10*6/uL (4.40-5.60); RDW 13.8 % (11.5-14.5); WBC 14.06 X 10*3/uL (4.50-10.00)
[2020-09-21 17:14] LABS: Glucose,Whole Blood 229 mg/dL (75-99)
[2020-09-21 21:19] LABS: Glucose,Whole Blood 329 mg/dL (75-99)
[2020-09-21] MEDS: traZODone HCL 100 MG TAB PO SCH (21:33)
[2020-09-21] MEDS: ZIPRASIDONE 40 MG CAP PO SCH (21:33)
[2020-09-22 06:51] LABS: Glucose,Whole Blood 133 mg/dL (75-99)
[2020-09-22] MEDS: PANTOPRAZOLE 40 MG TABLET PO SCH (07:12)
[2020-09-22] MEDS: INSULIN DETEMIR (LEVEMIR) 100 UNIT/ML SYR SQ SCH ×2 (07:13→21:03)
[2020-09-22] MEDS: INSULIN ASPART (NovoLOG) 100 UNIT/ML VIAL SQ SCH ×7 (07:13→21:05)
[2020-09-22] MEDS: Semaglutide [Rybelsus] 3 MG Tablet PO SCH (07:15)
[2020-09-22 07:38] LABS: African American GFR (CKD) 32 (>60 ml/min/1.73 sqM); Anion Gap 8 mmol/L; Blood Urea Nitrogen 43 mg/dL (9-20); Calcium 9.4 mg/dL (8.4-10.2); Carbon Dioxide 33 mmol/L (22-30); Chloride 99 mmol/L (98-107); Glucose 149 mg/dL (74-99); Non-African American GFR(CKD) 28 (>60 ml/min/1.73 sqM); Potassium 4.7 mmol/L (3.5-5.1); Sodium 140 mmol/L (137-145)
[2020-09-22] MEDS: AMPICILLIN-SULBACTAM 3 GM in SODIUM CHLORIDE 0.9% 100 ML IVPB SCH ×2 (08:11→17:18)
--- NOTE | 2020-09-22 09:30 | PN ---
PROGRESS NOTE DATE OF SERVICE: 09/21/2020 REASON FOR FOLLOWUP: Left 2nd toe diabetic foot infection with gangrene. INTERVAL HISTORY: Patient is afebrile. The patient is breathing comfortably. Patient denies having any chest pain, shortness of breath or cough. No nausea, vomiting. No abdominal pain or any worsening pain to the left foot. PHYSICAL EXAMINATION: Blood pressure 119/82 with a pulse of 90. Temperature 97.5. He is 96% on room air. General description is a middle-aged male lying in bed in no distress. Respiratory system: Unlabored breathing. Clear to auscultation anteriorly. Heart S1, S2. Regular rate and rhythm. Abdomen soft, no tenderness. Left foot is currently dressed up. No obvious drainage on the dressing. LABS: Creatinine is down to 2.84. DIAGNOSTIC IMPRESSION AND PLAN: Patient with left second toe diabetic foot infection with concern for underlying osteomyelitis, status post amputation of the left second toe. Local care to continue with Aquacel Silver dressing. Continue with Unasyn. Transition to oral antibiotic on discharge and monitor clinical course closely. MMODL / IJN: [id number] /
[2020-09-22] MEDS: busPIRone HCl 10 MG TAB PO SCH ×2 (09:40→20:07)
[2020-09-22] MEDS: GABAPENTIN 100 MG CAP PO SCH ×2 (09:41→20:06)
[2020-09-22] MEDS: hydrOXYzine pamoate 25 MG CAP PO SCH ×2 (09:41→20:07)
[2020-09-22] MEDS: amLODIPine 5 MG TAB PO SCH (09:41)
[2020-09-22] MEDS: DULoxetine HCL 60 MG CAPSULE.DR PO SCH ×2 (09:41→20:07)
[2020-09-22] MEDS: HEPARIN SODIUM,PORCINE/PF 5,000 UNIT/0.5 ML SYRINGE SQ SCH ×2 (09:42→20:06)
[2020-09-22] MEDS: TAMSULOSIN 0.4 MG CAP.ER.24H PO SCH (09:42)
[2020-09-22] MEDS: LACTOBACILLUS ACIDOPH & BULGAR 1 EACH PACKET PO SCH ×3 (09:43→20:07)
[2020-09-22] MEDS: diphenhydrAMINE 2% CREAM 28.4 GM TUBE TOPICAL SCH ×2 (09:45→20:08)
--- NOTE | 2020-09-22 10:17 | P.PN ---
Subjective Patient is seen in follow-up for acute kidney injury. Last hemodialysis was on 09/18/2020. Nonoliguric. Creatinine trending down. No chest pain or shortness of breath. Hemodynamically stable. No active complaints. Vital signs are stable. General: The patient appeared well nourished and normally developed. HEENT: Head exam is unremarkable. Neck is without jugular venous distension. LUNGS: Breath sounds decreased. HEART: Rate and Rhythm are regular. ABDOMEN: Soft, obese. EXTREMITITES: Trace edema. Objective - Vital Signs Vital signs: Vital Signs Temp 98.1 F 09/22/20 08:00 Pulse 87 09/22/20 08:00 Resp 17 09/22/20 08:00 BP 130/82 09/22/20 08:00 Pulse Ox 95 09/22/20 08:00 Intake & Output 09/21/20 09/22/20 09/22/20 18:59 06:59 18:59 Output Total 3400 1200 Balance -3400 -1200 Weight 154 kg Output: Urine 3400 1200 Other: Voiding Method Indwelling Catheter Indwelling Catheter Indwelling Catheter - Labs CBC & Chem 7: 09/21/20 06:35 09/22/20 06:50 Labs: Abnormal Lab Results - Last 24 Hours (Table) 09/21/20 09/21/20 09/21/20 Range/Units 06:35 11:43 17:12 WBC 14.06 H (4.50-10.00) X 10*3/uL RBC 4.32 L (4.40-5.60) X 10*6/uL Hgb 12.8 L (13.0-17.0) g/dL MCV 97.2 H (80.0-97.0) fL MCHC 30.5 L (32.0-37.0) g/dL Immature Gran # 0.15 H (0.00-0.04) X 10*3/uL Neutrophils # 7.75 H (1.80-7.70) X 10*3/uL Monocytes # 1.33 H (0.20-1.00) X 10*3/uL Eosinophils # 0.81 H (0.04-0.35) X 10*3/uL Basophils # 0.16 H (0.00-0.10) X 10*3/uL Carbon Dioxide (22-30) mmol/L BUN (9-20) mg/dL Creatinine (0.66-1.25) mg/dL Glucose (74-99) mg/dL POC Glucose (mg/dL) 210 H 229 H (75-99) mg/dL 09/21/20 09/22/20 09/22/20 Range/Units 21:18 06:49 06:50 WBC (4.50-10.00) X 10*3/uL RBC (4.40-5.60) X 10*6/uL Hgb (13.0-17.0) g/dL MCV (80.0-97.0) fL MCHC (32.0-37.0) g/dL Immature Gran # (0.00-0.04) X 10*3/uL Neutrophils # (1.80-7.70) X 10*3/uL Monocytes # (0.20-1.00) X 10*3/uL Eosinophils # (0.04-0.35) X 10*3/uL Basophils # (0.00-0.10) X 10*3/uL Carbon Dioxide 33 H (22-30) mmol/L BUN 43 H (9-20) mg/dL Creatinine 2.57 H (0.66-1.25) mg/dL Glucose 149 H (74-99) mg/dL POC Glucose (mg/dL) 329 H 133 H (75-99) mg/dL Assessment and Plan Plan: Assessment: 1. Acute kidney injury secondary to ATN secondary to vancomycin toxicity and nonsteroidals. Baseline creatinine near 1 and started on hemodialysis this admission. Last hemodialysis was on 09/18/2020. Now creatinine is trending down and he is nonoliguric. Creatinine 2.57 today. 2. Left foot osteomyelitis status post amputation of the left second toe. 3. Metabolic acidosis secondary to acute kidney injury and IV fluids. Resolve d. 4. Diabetes mellitus. 5. Urinary retention status post Jarquin catheter placement. Seen by urology. 6. Volume overload. Improved with diuresis. Plan: Change Lasix to oral. Continue to hold hemodialysis and discontinue permacath. Avoid nephrotoxins. Continue to monitor renal function and urine output.
[2020-09-22] MEDS: FUROSEMIDE 10 MG/ML 10 ML VIAL IV SCH (10:20)
[2020-09-22] MEDS: LORazepam 0.5 MG TAB PO PRN ×2 (10:25→20:07)
[2020-09-22 11:08] LABS: Glucose,Whole Blood 352 mg/dL (75-99)
--- NOTE | 2020-09-22 11:13 | CDI ---
Documentation Clarification Form Date: 09/22/2020 10:58:32 AM From: Daiana Cadet CCS, CCDS Admit Date: 09/06/2020 01:29:00 PM Patient Name: Maxwell Villarreal Visit Number: [id number] Discharge Date: ATTENTION: The Clinical Documentation Specialists (CDI) and [facility] Coding Staff appreciate your assistance in clarifying documentation. Please respond to the clarification below the line at the bottom and electronically sign. The CDI & [facility] Coding staff will review the response and follow-up if needed. Please note: Queries are made part of the Legal Health Record. If you have any questions, please contact the author of this message via ITS. Dr. Bright Presley. Sheet: Urinary Retention is documented in the Attending Physician Progress Note on 09/11 (POD #5) status post Left Second Toe Amputation on 09/07 by Vascular Surgery. Additional clarification is requested regarding the relationship, if any, that exists between the diagnosis and the procedure. Patients Pre-Operative Diagnosis: Infected Diabetic Foot Ulceration, Osteomyelitis.. Post-Operative Diagnosis: Same Procedure performed: Left Second Toe Amputation History/Risk Factors: IDDM II, Hypertension, Hyperlipidemia, Peripheral Neuropathy, Sleep Apnea, History of Cocaine, Marijuana, Opiate & Prescription Drug Abuse. Clinical Indicators: Presented to the ED on 09/06 with Left foot pain, swelling & discoloration, diabetic. ED Clinical Impression: Diabetes Mellitus, Diabetic Foot Infection, Cellulitis 09/09 Urine Output: 200 ml. 09/11 Attending Progress Note: 09/11/2020 complains of urinary retention, bladder scanned for greater than 400, inability to place urinary catheter x3 attempts, renal function continues to worsen with creatinine up to 5.96. Treatment 09/11: Flomax, Urology Consulted for Jarquin Catheter placement (Jarquin placed by Urology). 09/21 Attending Progress Note: Jarquin Catheter continued. What relationship, if any, exists between the patient's surgery (Left Second Toe Amputation) and the diagnosis of Urinary Retention: [ ] Urinary Retention is a complication of surgical procedure [ ] Urinary Retention is an expected outcome of the surgical procedure [ ] Urinary Retention is related to patients co-morbid condition(s) of, (please specify): & not a complication of the procedure [ ] Other please specify [ ] Unable to determine (Template Last Revised: April 2020) Unable to determine MTDD
--- NOTE | 2020-09-22 13:04 | P.PN ---
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 Reports history of prior surgery to the affected foot with resulting plate with 16 screws. Evaluated by vascular surgery, bone scan in progress. Scheduled for I&D and potentially amputation of first, possibly a second toes. Wound culture pending. Maintained on IV antibiotics of clindamycin and vancomycin. Renal function stable. Afebrile, WBC trending down, 16.4. Blood sugars better controlled. Denies chest pain, palpitations or shortness of breath. 09/08/2020 bone scan reported suspicious for osteomyelitis involving the second digit of the left lower, with likely underlying cellulitis. status post left second toe amputation, postop day #1, tolerated well. Pain controlled. Earlier this morning patient had gotten up to bathroom, with significant bleeding re ported from site. Pressure dressing applied, dressing and currently clean dry and intact, labs pending. Maintained on IV antibiotics daptomycin and Zosyn, and IV fluid hydration. Afebrile. 09/09/2020 maintained on IV antibiotics as per ID. Reported diarrhea, suspect antibiotic related. Lactinex added to med regimen. Hemoglobin stable. Reports throbbing of affected lower extremity. Afebrile, wound cultures pending. Creatinine jumped to 2.62 yesterday; patient had been on vancomycin initially. Maintained on IV fluid hydration. Repeat labs pending. Blood sugars elevated, ranging from 180s to 250s. 09/10/2020 maintained on IV antibiotics, creatinine continues to jump to 5.22, nephrology consulted.potassium 5.8 Developed increasing tremors, lithium level I.2, ammonia level less than 9. Neurology consulted. Noncompliant with consistent carb diet; staff reports family continues to bring him in a nondiabetic food/drink, package of combos sitting on his bedside table. Blood s ugars ranging 180s to 200. Afebrile. Pain had been controlled until he ambulated with PT. 09/11/2020 complains of urinary retention, bladder scanned for greater than 400, inability to place urinary catheter-3 attempts, renal function continues to worsen with creatinine up to 5.96. Afebrile, WBC 14.33. Blood sugars better controlled. Levemir increased yesterday, blood sugars better controlled. Hemoglobin 12.1, platelets 271. 09/14/2020 sitting up in chair. Denies chest pain, palpitations. Reports exertional shortness of breath. Tremors appear mildly improved. Complains of phantom pain. Reports he is unable to take Seroquel as it causes him restless leg syndrome. Scheduled for brain MRI this morning. Maintained on Unasyn, afebrile. Denies nausea or vomiting. Blood sugars controlled. Labs pending. 09/15/2020 reporting decreased appetite with nausea. renal function continues to worsen, creatinine 6.3. Potassium 5.9. Denies chest pain, palpitations or shortness of breath. 09/16/2020 right internal jugular temporary dialysis catheter placed yesterday. Tolerated procedure well. BUN 44, creatinine 5.9, potassium 6. Scheduled for first hemodialysis session this morning. Denies chest pain, palpitations or shortness of breath. Maintained on Unasyn. Left foot pain controlled. Reports he is afraid. Afebrile, WBC trending down. 09/17/2020 labs pending. Scheduled for another session of hemodialysis today. Denies nausea or vomiting. Denies abdominal pain. Maintained on IV antibiotics as per ID. Afebrile. Pain controlled. 09/18/2020 Maintained on IV antibiotics as per ID. renal function improving with hemodialysis. Good urine output. Labs pending. Feels better.Hemodialysis scheduled for tomorrow. Complains of surgical site pain-reports phantom pain. Blood sugars in the 70s this morning. Denies chest pain, palpitations or shortness of breath. Mentation,tremors improved. 09/22/2020 remains off of hemodialysis with renal function continuing to improve, creatinine down to 2.57. Dialysis catheter ordered to be discontinued as per nephrology. No tremors. Pain controlled. Denies chest pain, palpitations or shortness of breath. Objective - Vital Signs Vital signs: Vital Signs Temp 98.1 F 09/22/20 08:00 Pulse 87 09/22/20 08:00 Resp 17 09/22/20 08:00 BP 130/82 09/22/20 08:00 Pulse Ox 95 09/22/20 08:00 Intake & Output 09/21/20 09/22/20 09/22/20 18:59 06:59 18:59 Output Total 3400 1200 1800 Balance -3400 -1200 -1800 Weight 154 kg Output: Urine 3400 1200 1800 Other: Voiding Method Indwelling Catheter Indwelling Catheter Indwelling Catheter - Exam PHYSICAL EXAM: VITAL SIGNS: As above GENERAL: Alert and oriented 3, sitting up in chair, no acute distress. HEENT: Conjunctivae normal. eyes normal. NECK: No JVD. No thyroid enlargement. No LNs. Temporary hemodialysis cath dressing clean dry and intact. CARDIOVASCULAR: S1, S2 regular. No murmur. RESPIRATION: Breath sounds diminished in the bases. No rhonchi or crackles. ABDOMEN: Soft, nondistended, nontender . No guarding. no masses palpable.positive Bowel sounds. LEGS: trace bilateral lower extremity edema, left foot dressing clean dry and intact, palpable pulse. NERVOUS SYSTEM: Cranial N 2-12 grossly normal. Moves all 4 limbs. No focal deficits.Strength and sensation grossly intact. Skin: Warm and dry, no rash. - Labs CBC & Chem 7: 09/21/20 06:35 09/22/20 06:50 Labs: Abnormal Lab Results - Last 24 Hours (Table) 09/21/20 09/21/20 09/21/20 Range/Units 06:35 17:12 21:18 WBC 14.06 H (4.50-10.00) X 10*3/uL RBC 4.32 L (4.40-5.60) X 10*6/uL Hgb 12.8 L (13.0-17.0) g/dL MCV 97.2 H (80.0-97.0) fL MCHC 30.5 L (32.0-37.0) g/dL Immature Gran # 0.15 H (0.00-0.04) X 10*3/uL Neutrophils # 7.75 H (1.80-7.70) X 10*3/uL Monocytes # 1.33 H (0.20-1.00) X 10*3/uL Eosinophils # 0.81 H (0.04-0.35) X 10*3/uL Basophils # 0.16 H (0.00-0.10) X 10*3/uL Carbon Dioxide (22-30) mmol/L BUN (9-20) mg/dL Creatinine (0.66-1.25) mg/dL Glucose (74-99) mg/dL POC Glucose (mg/dL) 229 H 329 H (75-99) mg/dL 09/22/20 09/22/20 09/22/20 Range/Units 06:49 06:50 11:07 WBC (4.50-10.00) X 10*3/uL RBC (4.40-5.60) X 10*6/uL Hgb (13.0-17.0) g/dL MCV (80.0-97.0) fL MCHC (32.0-37.0) g/dL Immature Gran # (0.00-0.04) X 10*3/uL Neutrophils # (1.80-7.70) X 10*3/uL Monocytes # (0.20-1.00) X 10*3/uL Eosinophils # (0.04-0.35) X 10*3/uL Basophils # (0.00-0.10) X 10*3/uL Carbon Dioxide 33 H (22-30) mmol/L BUN 43 H (9-20) mg/dL Creatinine 2.57 H (0.66-1.25) mg/dL Glucose 149 H (74-99) mg/dL POC Glucose (mg/dL) 133 H 352 H (75-99) mg/dL Assessment and Plan Assessment: Possible sepsis, present on admission related to Acute Diabetic wound of left foot, failed outpatient treatment Osteomyelitis of left foot, second digit status post bone scan, status post amputation of left second toe. Left second toe acute osteomyelitis per pathology. Acute renal failure, related to ATN secondary to vancomycin, nsaids, urinary retention, worsening. Hemodialysis initiated. Last hemodialysis 09/18/2020. Hyperkalemia secondary to the above Metabolic acidosis secondary to the above Urinary retention, status post Jarquin catheter placement, related to fluid volume overload ,component of renal failure. Tremors, lithium level high end of therapeutic, possible but doubt seizures, possibly medication related, suspect metablic as per neurology. History of prior left foot surgery with reported plate and screws Diabetes mellitus type 2, hyperglycemic, hemoglobin A1c 7.9. Hypertension Hyperlipidemia Obstructive sleep apnea Peripheral neuropathy PTSD, bipolar, depression, anxiety History of cocaine, marijuana, opiates, prescription drug abuse, Morbid obesity, BMI 50.2 Plan: Continue on current medication regime ,monitoring and symptomatic treatment. DC Jarquin catheter if okay with nephrology. Diuretics transitioned to oral. Close monitoring of urine output. Dialysis catheter being discontinued. Continue monitoring renal function with repeat labs ordered for a.m. Discharge planning in progress for tomorrow to subacute rehab. Patient had requested a short-leg boot versus the shoe. Discussed with case management, insurance will not cover the additional offloading boot. The impression and plan of care has been dictated as directed. : I performed a history and examination of this patient, discussed the same with the dictator. I agree with the dictator's note ,documented as a scribe. Any additional findings or plans will be noted.
[2020-09-22] MEDS ORDERED: LIDOCAINE 2% (PF) 20 MG/ML 5 ML VIAL ONE (16:38)
[2020-09-22] MEDS: HYDROcodone/APAP 10-325MG 1 EACH TAB PO PRN (16:56)
[2020-09-22 17:02] LABS: Glucose,Whole Blood 313 mg/dL (75-99)
--- NOTE | 2020-09-22 19:57 | PN ---
PROGRESS NOTE DATE OF SERVICE: 09/22/2020 REASON FOR FOLLOWUP: Left second toe diabetic foot infection. INTERVAL HISTORY: The patient is afebrile. The patient is breathing comfortably. No chest pain, cough. No abdominal pain or worsening pain to the left foot. PHYSICAL EXAMINATION: Blood pressure 120/85, pulse 94, temperature 98.1. He is 93% on room air. General description is a middle-aged male lying in bed in no distress. Respiratory system: Unlabored breathing, clear to auscultation anteriorly. Heart S1, S2. Regular rate and rhythm. Abdomen soft, no tenderness. Left foot 2nd toe amputation site wound with no slough tissue. No surrounding redness or drainage. LABS: BUN of 43, creatinine 2.57. DIAGNOSTIC IMPRESSION AND PLAN: Patient with left diabetic foot infection status post amputation of left second toe. Plan is to continue with Unasyn. Local wound care with Aquacel dressing and monitor clinical course closely. MMODL / IJN: [id number] /
[2020-09-22] MEDS: traZODone HCL 100 MG TAB PO SCH (20:07)
[2020-09-22] MEDS: ZIPRASIDONE 40 MG CAP PO SCH (20:07)
[2020-09-22 20:41] LABS: Glucose,Whole Blood 346 mg/dL (75-99)
--- NOTE | 2020-09-22 21:20 | PCN ---
PROCEDURE NOTE PROCEDURE PERFORMED: Removal dialysis catheter, right jugular approach. The patient was seen in her room. Right side of the neck and chest were prepped, drapes applied in usual sterile manner. 1% lidocaine was infiltrated. Catheter was removed and a stitch was placed. Dressing applied. Patient tolerated the procedure well. TIANNA / GREGORIO: [id number] /
[2020-09-23] MEDS: AMPICILLIN-SULBACTAM 3 GM in SODIUM CHLORIDE 0.9% 100 ML IVPB SCH ×2 (01:03→09:03)
[2020-09-23 07:18] LABS: Glucose,Whole Blood 133 mg/dL (75-99)
[2020-09-23] MEDS: PANTOPRAZOLE 40 MG TABLET PO SCH (07:46)
[2020-09-23] MEDS: TAMSULOSIN 0.4 MG CAP.ER.24H PO SCH (07:46)
[2020-09-23] MEDS: INSULIN ASPART (NovoLOG) 100 UNIT/ML VIAL SQ SCH ×4 (07:47→12:21)
[2020-09-23] MEDS: INSULIN DETEMIR (LEVEMIR) 100 UNIT/ML SYR SQ SCH (07:47)
[2020-09-23] MEDS: Semaglutide [Rybelsus] 3 MG Tablet PO SCH (07:58)
[2020-09-23] MEDS ORDERED: FUROSEMIDE 40 MG TAB PO SCH (09:00)
[2020-09-23] MEDS: DULoxetine HCL 60 MG CAPSULE.DR PO SCH (09:02)
[2020-09-23] MEDS: HEPARIN SODIUM,PORCINE/PF 5,000 UNIT/0.5 ML SYRINGE SQ SCH (09:02)
[2020-09-23] MEDS: busPIRone HCl 10 MG TAB PO SCH (09:02)
[2020-09-23] MEDS: GABAPENTIN 100 MG CAP PO SCH (09:03)
[2020-09-23] MEDS: hydrOXYzine pamoate 25 MG CAP PO SCH (09:03)
[2020-09-23] MEDS: amLODIPine 5 MG TAB PO SCH (09:04)
[2020-09-23] MEDS: LACTOBACILLUS ACIDOPH & BULGAR 1 EACH PACKET PO SCH ×2 (09:04→15:26)
--- NOTE | 2020-09-23 10:25 | P.PN ---
Subjective Patient is seen in follow-up for acute kidney injury. Last hemodialysis was on 09/18/2020. Nonoliguric. Creatinine trending down. No chest pain or shortness of breath. Hemodynamically stable. Permacath as well as Jarquin catheter were removed September 22. He has been voiding on his own. Vital signs are stable. General: The patient appeared well nourished and normally developed. HEENT: Head exam is unremarkable. Neck is without jugular venous distension. LUNGS: Breath sounds decreased. HEART: Rate and Rhythm are regular. ABDOMEN: Soft, obese. EXTREMITITES: Trace edema. Objective - Vital Signs Vital signs: Vital Signs Temp 98.0 F 09/23/20 07:53 Pulse 74 09/23/20 07:53 Resp 16 09/23/20 07:53 BP 106/64 09/23/20 07:53 Pulse Ox 94 L 09/23/20 07:53 Intake & Output 09/22/20 09/23/20 09/23/20 18:59 06:59 18:59 Intake Total 840 Output Total 1800 Balance -1800 840 Weight 153.5 kg Intake: Intake, IV Titration 200 Amount Ampicillin-Sulbactam 3 gm 200 In Sodium Chloride 0.9% 100 ml @ 200 mls/hr IVPB Q8HR [facility] Rx#:[id number] Oral 640 Output: Urine 1800 Other: Voiding Method Indwelling Catheter Toilet # Voids 2 # Bowel Movements 1 - Labs CBC & Chem 7: 09/21/20 06:35 09/22/20 06:50 Labs: Abnormal Lab Results - Last 24 Hours (Table) 09/22/20 09/22/20 09/22/20 Range/Units 11:07 17:00 20:40 POC Glucose (mg/dL) 352 H 313 H 346 H (75-99) mg/dL 09/23/20 Range/Units 07:17 POC Glucose (mg/dL) 133 H (75-99) mg/dL Assessment and Plan Plan: Assessment: 1. Acute kidney injury secondary to ATN secondary to vancomycin toxicity and nonsteroidals. Baseline creatinine near 1 and started on hemodialysis this admission. Last hemodialysis was on 09/18/2020. Now creatinine is trending down and he is nonoliguric. Creatinine 2.57 yesterday. 2. Left foot osteomyelitis status post amputation of the left second toe. 3. Metabolic acidosis secondary to acute kidney injury and IV fluids. Resolve d. 4. Diabetes mellitus. 5. Urinary retention status post Jarquin catheter placement. Seen by urology. 6. Volume overload. Improved with diuresis. Plan: Maintain oral Lasix. Jarquin catheter and permacath removed September 22. Avoid nephrotoxins. Continue to monitor renal function and urine output. Morning labs pending.
[2020-09-23 11:21] LABS: African American GFR (CKD) 38.8 (60.0-200.0); Anion Gap 8.6 mmol/L (4.00-12.00); BUN/Creat Ratio 15.91 Ratio (12.00-20.00); Calcium 9.2 mg/dL (8.7-10.3); Carbon Dioxide 34.4 mmol/L (21.6-31.8); Magnesium 1.8 mg/dL (1.5-2.4); Non-African American GFR(CKD) 33.4 (60.0-200.0); Potassium 4.8 mmol/L (3.5-5.5)
--- NOTE | 2020-09-23 11:41 | P.DS ---
Providers Date of admission: 09/06/20 13:29 Expected date of discharge: 09/23/20 Attending physician: Abel Patel MD Consults: 09/06/20 18:56 Consult Physician Routine Consulting Provider: Lisa Kemp Consult Reason/Comments: diabetic foot Do you want consulting provider notified?: Yes 09/09/20 15:28 Consult Physician Routine Consulting Provider: Sulaiman Capellan Consult Reason/Comments: new onset tremors Do you want consulting provider notified?: Yes 09/10/20 16:13 Consult Physician Urgent Consulting Provider: Nasir Austin Consult Reason/Comments: renal failure Do you want consulting provider notified?: Yes 09/11/20 08:56 Consult Physician Urgent Consulting Provider: Kamar Silva Consult Reason/Comments: rentention, needs wilkinson Do you want consulting provider notified?: Yes 09/15/20 10:28 Consult Physician Urgent Consulting Provider: Perez Fuller Consult Reason/Comments: hemodialysis catheter placement, treatment needed tomorrow 09/16 Do you want consulting provider notified?: Yes Primary care physician: Marisol Patel [facility] Course: Final Diagnoses: Sepsis, present on admission related to Acute Diabetic wound of left foot, failed outpatient treatment Osteomyelitis of left foot, second digit status post bone scan, status post amputation of left second toe. Left second toe acute osteomyelitis per pathology. Acute renal failure, related to ATN secondary to vancomycin, nsaids, urinary retention, worsening. Hemodialysis initiated. Last hemodialysis 09/18/2020. Creatinine down to 2.2, baseline creatinine around 1. Hyperkalemia secondary to the above Metabolic acidosis secondary to the above Urinary retention, status post Wilkinson catheter placement, related to fluid volume overload ,component of renal failure. Resolved. Continues on Flomax Tremors, lithium level high end of therapeutic, possible but doubt seizures, possibly medication related, suspect metablic as per neurology. History of prior left foot surgery with reported plate and screws Diabetes mellitus type 2, hyperglycemic, hemoglobin A1c 7.9. 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 Reports history of prior surgery to the affected foot with resulting plate with 16 screws. Evaluated by vascular surgery, bone scan in progress. Scheduled for I&D and potentially amputation of first, possibly a second toes. Wound culture pending. Maintained on IV antibiotics of clindamycin and vancomycin. Renal function stable. Afebrile, WBC trending down, 16.4. Blood sugars better controlled. Denies chest pain, palpitations or shortness of breath. 09/08/2020 bone scan reported suspicious for osteomyelitis involving the second digit of the left lower, with likely underlying cellulitis. status post left second toe amputation, postop day #1, tolerated well. Pain controlled. Earlier this morning patient had gotten up to bathroom, with significant bleeding reported from site. Pressure dressing applied, dressing and currently clean dry and intact, labs pending. Maintained on IV antibiotics daptomycin and Zosyn, and IV fluid hydration. Afebrile. 09/09/2020 maintained on IV antibiotics as per ID. Reported diarrhea, suspect antibiotic related. Lactinex added to med regimen. Hemoglobin stable. Reports throbbing of affected lower extremity. Afebrile, wound cultures pending. Creatinine jumped to 2.62 yesterday; patient had been on vancomycin initially. Maintained on IV fluid hydration. Repeat labs pending. Blood sugars elevated, ranging from 180s to 250s. 09/10/2020 maintained on IV antibiotics, creatinine continues to jump to 5.22, nephrology consulted.potassium 5.8 Developed increasing tremors, lithium level I.2, ammonia level less than 9. Neurology consulted. Noncompliant with consistent carb diet; staff reports family continues to bring him in a nondiabetic food/drink, package of combos sitting on his bedside table. Blood sugars ranging 180s to 200. Afebrile. Pain had been controlled until he ambulated with PT. 09/11/2020 complains of urinary retention, bladder scanned for greater than 400, inability to place urinary catheter-3 attempts, renal function continues to worsen with creatinine up to 5.96. Afebrile, WBC 14.33. Blood sugars better controlled. Levemir increased yesterday, blood sugars better controlled. Hemoglobin 12.1, platelets 271. 09/14/2020 sitting up in chair. Denies chest pain, palpitations. Reports exertional shortness of breath. Tremors appear mildly improved. Complains of phantom pain. Reports he is unable to take Seroquel as it causes him restless leg syndrome. Scheduled for brain MRI this morning. Maintained on Unasyn, afebrile. Denies nausea or vomiting. Blood sugars controlled. Labs pending. 09/15/2020 reporting decreased appetite with nausea. renal function continues to worsen, creatinine 6.3. Potassium 5.9. Denies chest pain, palpitations or shortness of breath. 09/16/2020 right internal jugular temporary dialysis catheter placed yesterday. Tolerated procedure well. BUN 44, creatinine 5.9, potassium 6. Scheduled for first hemodialysis session this morning. Denies chest pain, palpitations or shortness of breath. Maintained on Unasyn. Left foot pain controlled. Reports he is afraid. Afebrile, WBC trending down. 09/17/2020 labs pending. Scheduled for another session of hemodialysis today. Denies nausea or vomiting. Denies abdominal pain. Maintained on IV antibiotics as per ID. Afebrile. Pain controlled. 09/18/2020 Maintained on IV antibiotics as per ID. renal function improving with hemodialysis. Good urine output. Labs pending. Feels better.Hemodialysis scheduled for tomorrow. Complains of surgical site pain-reports phantom pain. Blood sugars in the 70s this morning. Denies chest pain, palpitations or shortness of breath. Mentation,tremors improved. 09/22/2020 remains off of hemodialysis with renal function continuing to improve, creatinine down to 2.57. Dialysis catheter ordered to be discontinued as per nephrology. No tremors. Pain controlled. Denies chest pain, palpitations or shortness of breath. Significant clinical improvement. Temporary dialysis catheter discontinued. Wilkinson catheter discontinued yesterday, spontaneously voiding without difficulty. Creatinine continues trending down, currently 2.2. Pain controlled. Denies chest pain, palpitations or shortness of breath. Patient will be discharged to [facility] subacute rehab today in a stable condition with guarded prognosis pending final DC recommendations and clearance per ID and nephrology. DC antibiotics as per ID. The impression and plan of care has been dictated as directed. : I performed a history and examination of this patient, discussed the same with the dictator. I agree with the dictator's note ,documented as a scribe. Any additional findings or plans will be noted. Patient Condition at Discharge: Stable Plan - Discharge Summary Discharge Rx Participant: No New Discharge Prescriptions: New Tamsulosin [Flomax] 0.4 mg PO PC-BRKFST cap.er.24h INSULIN LISPRO (HumaLOG) [humaLOG] 0 unit SQ ACHS #1 vial Furosemide [Lasix] 40 mg PO DAILY tab INSULIN ASPART (NovoLOG) [NovoLOG (formulary)] 20 unit SQ AC-TID vial Lactobacillus Acidoph & Bulgar [Lactinex] 1 each PO TID packet Gabapentin [Neurontin] 100 mg PO BID #6 cap amLODIPine [Norvasc] 5 mg PO DAILY tab Acetaminophen Tab [Tylenol] 650 mg PO Q6HR PRN tab PRN Reason: Mild Pain Or Fever > 100.5 Continue Atorvastatin Calcium [Lipitor] 20 mg PO HS Insulin Detemir (Levemir) [Levemir] 80 unit SQ BID@0700,2100 syr INSULIN ASPART (NovoLOG) [NovoLOG (formulary)] 40 unit SQ AC-TID vial Ziprasidone [Geodon] 40 mg PO HS busPIRone HCL [Buspar] 30 mg PO BID Pantoprazole Sodium [Protonix] 40 mg PO DAILY Potassium Chloride ER [K-Dur 10] 10 meq PO DAILY Semaglutide [Rybelsus] 3 mg PO DAILY@0700 DULoxetine HCL [Cymbalta] 60 mg PO BID 30 Days capsule. traZODone HCL [Desyrel] 200 mg PO HS 30 Days tab hydrOXYzine pamoate [hydrOXYzine PAMOATE] 25 mg PO BID Naloxone HCl [Narcan] 4 mg NASAL ONCE PRN PRN Reason: OVERDOSE Changed HYDROcodone/APAP 5-325MG [[place] 5-325] 1 tab PO TID PRN 3 Days #9 PRN Reason: Pain Discontinued allopurinoL [Zyloprim] 300 mg PO DAILY tab lisinopriL [Zestril] 10 mg PO DAILY #30 tab metFORMIN HCL [Glucophage] 1,000 mg PO BID Famotidine [Pepcid] 20 mg PO BID [place] Carbonate 450 mg PO BID 30 Days cap Meloxicam [Mobic] 15 mg PO DAILY Gabapentin 600 mg PO TID Indomethacin [Indocin] 25 mg PO TID Discharge Medication List Atorvastatin Calcium [Lipitor] 20 mg PO HS 01/27/20 [History] Potassium Chloride ER [K-Dur 10] 10 meq PO DAILY 06/25/20 [History] Semaglutide [Rybelsus] 3 mg PO DAILY@0700 06/25/20 [History] DULoxetine HCL [Cymbalta] 60 mg PO BID 30 Days capsule. 07/06/20 [Rx] INSULIN ASPART (NovoLOG) [NovoLOG (formulary)] 40 unit SQ AC-TID vial 07/06/20 [Rx] Insulin Detemir (Levemir) [Levemir] 80 unit SQ BID@0700,2100 syr 07/06/20 [Rx] traZODone HCL [Desyrel] 200 mg PO HS 30 Days tab 07/06/20 [Rx] Naloxone HCl [Narcan] 4 mg NASAL ONCE PRN 09/06/20 [History] Pantoprazole Sodium [Protonix] 40 mg PO DAILY 09/06/20 [History] Ziprasidone [Geodon] 40 mg PO HS 09/06/20 [History] busPIRone HCL [Buspar] 30 mg PO BID 09/06/20 [History] hydrOXYzine pamoate [hydrOXYzine PAMOATE] 25 mg PO BID 09/06/20 [History] Acetaminophen Tab [Tylenol] 650 mg PO Q6HR PRN tab 09/23/20 [Rx] Furosemide [Lasix] 40 mg PO DAILY tab 09/23/20 [Rx] Gabapentin [Neurontin] 100 mg PO BID #6 cap 09/23/20 [Rx] HYDROcodone/APAP 5-325MG [[place] 5-325] 1 tab PO TID PRN 3 Days #9 09/23/20 [Rx] INSULIN ASPART (NovoLOG) [NovoLOG (formulary)] 20 unit SQ AC-TID vial 09/23/20 [Rx] INSULIN LISPRO (HumaLOG) [humaLOG] 0 unit SQ ACHS #1 vial 09/23/20 [Rx] Lactobacillus Acidoph & Bulgar [Lactinex] 1 each PO TID packet 09/23/20 [Rx] Tamsulosin [Flomax] 0.4 mg PO PC-BRKFST cap.er.24h 09/23/20 [Rx] amLODIPine [Norvasc] 5 mg PO DAILY tab 09/23/20 [Rx] Follow up Appointment(s)/Referral(s): Marisol Patel DO [Primary Care Provider] - 1-2 days Mckayla Wilkinson DO [STAFF PHYSICIAN] - 2 Weeks (10-14 days) [facility] [NON-STAFF] - 1 Week Maxwell Watson DO [STAFF PHYSICIAN] - 2 Weeks Sotero Mitchell MD [STAFF PHYSICIAN] - 1 Week Activity/Diet/Wound Care/Special Instructions: [facility] IV antibiotics as per ID CBC, BMP in 3 days Wound care: Discharge Disposition: TRANSFER TO SNF/ECF
[2020-09-23 12:04] LABS: Glucose,Whole Blood 199 mg/dL (75-99)
--- NOTE | 2020-09-23 14:23 | PN ---
PROGRESS NOTE DATE OF SERVICE: 09/23/2020 REASON FOR FOLLOWUP: Left second toe gangrene, diabetic foot infection. INTERVAL HISTORY: The patient is afebrile. The patient is breathing comfortably. Denies any chest pain, cough, no abdominal pain or any worsening pain to the left foot area. PHYSICAL EXAMINATION: Blood pressure 106/64, pulse of 74, temperature 98. He is 97% on room air. General description is a middle-aged male lying in bed in no distress. Respiratory system: Unlabored breathing, clear to auscultation anteriorly. Heart S1, S2. Regular rate and rhythm. Abdomen soft, no tenderness. Left foot is currently dressed up. No obvious drainage on the dressing. LAB: Creatinine is down to 2.2. DIAGNOSTIC IMPRESSION AND PLAN: Patient with left second toe diabetic foot infection with gangrene status post amputation. Cultures mostly with anaerobes. Patient has shown overall clinical improvement. Finish therapy with oral Augmentin. Local wound care with dry Aquacel silver dressing and follow up in the Wound Center next week and close outpatient followup. MMODL / IJN: [id number] /
[2020-09-23 14:29] VITALS: BP 136/86; PULSE 90; RESP 18; TEMP 98.5
== END 2020-09-23 16:30 | DRG 853 ==
LOC: EC 11:57 → 4SSUR 13:29
PROVIDERS: ADMIT Family Medicine; ATTEND Family Medicine
PROC: 0Y6S0Z1 Detachment at Left 2nd Toe, High, Open Approach (ICD-10-PCS; principal; 2020-09-07 09:10)
PROC: 5A1D70Z Performance of Urinary Filtration, Intermittent, Less than 6 Hours Per Day (ICD-10-PCS; 2020-09-11)
PROC: 0JH63XZ Insertion of Tunneled Vascular Access Device into Chest Subcutaneous Tissue and Fascia, Percutaneous Approach (ICD-10-PCS; 2020-09-15 13:45)
PROC: 02HV33Z Insertion of Infusion Device into Superior Vena Cava, Percutaneous Approach (ICD-10-PCS; 2020-09-15 16:10)
PROC: 02PYX3Z Removal of Infusion Device from Great Vessel, External Approach (ICD-10-PCS; 2020-09-22)
DX: A41.9 Sepsis, unspecified organism (principal); N17.0 Acute kidney failure with tubular necrosis; G92 Toxic encephalopathy; E11.52 Type 2 diabetes mellitus with diabetic peripheral angiopathy with gangrene; F31.30 Bipolar disorder, current episode depressed, mild or moderate severity, unspecified; L03.116 Cellulitis of left lower limb; E87.1 Hypo-osmolality and hyponatremia; M86.172 Other acute osteomyelitis, left ankle and foot; Z68.43 Body mass index [BMI] 50.0-59.9, adult; E87.4 Mixed disorder of acid-base balance; E11.69 Type 2 diabetes mellitus with other specified complication; E11.621 Type 2 diabetes mellitus with foot ulcer; M79.672 Pain in left foot; E11.40 Type 2 diabetes mellitus with diabetic neuropathy, unspecified; E78.5 Hyperlipidemia, unspecified; M10.9 Gout, unspecified; F43.10 Post-traumatic stress disorder, unspecified; Z83.3 Family history of diabetes mellitus; Z82.49 Family history of ischemic heart disease and other diseases of the circulatory system; Z82.3 Family history of stroke; F14.10 Cocaine abuse, uncomplicated; E11.65 Type 2 diabetes mellitus with hyperglycemia; Z87.820 Personal history of traumatic brain injury; G47.33 Obstructive sleep apnea (adult) (pediatric); E66.01 Morbid (severe) obesity due to excess calories; R10.9 Unspecified abdominal pain; Z91.19 Patient's noncompliance with other medical treatment and regimen; E87.5 Hyperkalemia; E87.70 Fluid overload, unspecified; R33.9 Retention of urine, unspecified; G25.1 Drug-induced tremor; G25.3 Myoclonus; G54.6 Phantom limb syndrome with pain; E11.628 Type 2 diabetes mellitus with other skin complications; N47.1 Phimosis; T36.8X5A Adverse effect of other systemic antibiotics, initial encounter; Z79.1 Long term (current) use of non-steroidal anti-inflammatories (NSAID); Z79.4 Long term (current) use of insulin; Z79.899 Other long term (current) drug therapy; L97.529 Non-pressure chronic ulcer of other part of left foot with unspecified severity; I10 Essential (primary) hypertension
CPT/HCPCS: 36410; 36415; 36558; 70450; 71045; 76770; 76937; 77001; 78315; 80048; 80053; 80171; 80178; 80202; 80306; 81001; 82140; 83036; 83605; 83735; 84443; 85025; 85027; 85610; 85652; 85730; 86140; 86706; 87040; 87070; 87075; 87205; 87340; 88305; 90935; 95816; 96365; 99285